=== PATIENT | male | born 1945 | race Caucasian/White ===

== ENCOUNTER 2018-01-13 14:25 | Inpatient (IN) | payer OTHER, MEDICARE ==
[2018-01-13 14:38] VITALS: BMI 29.5
--- NOTE | 2018-01-13 14:41 | PDOC ---
History of Present Illness - General History Source: Friend Exam Limitations: No Limitations - History of Present Illness Initial Comments: 01/13/18 15:14 The patient is a 72-year-old male, with a significant past medical history of HTN, HLD, colitis, IBS, bladder cancer, TIA (no residual deficits), who presents to the ED with via EMS for altered mental status. As per EMS, the patient was attempting to park his car in his driveway, but suddenly forgot how to drive the car. Neighbors helped him out of the car and noted that he was altered and confused. They called EMS at 1:48 PM and they arrived on the scene at 1:55 PM. As per EMS, the patient was ANOx4 at that time and had no focal deficits. Upon arrival to the ED, the patient was noted to be confused to date and time but had no motor deficits. The patient reports having a recent fall at home 2 weeks ago with trauma to his forehead. The patient denies any fever, chills, nausea, vomiting, diarrhea, or abdominal pain. Denies any shortness of breath or chest pain. Allergies: NKA Surgical History: Bladder resection and ileal conduit (October 2017). PCP: Dr. Appiah Contract Admin: Dr. Morgan <Kelsi Levy - Last Filed: 01/13/18 15:55> - General History Source: Friend (HCP) <Jh Arriola - Last Filed: 01/13/18 16:15> - General Chief Complaint: Altered Mental Status Stated Complaint: Altered Mental Status Time Seen by Provider: 01/13/18 14:36 Past History <Kelsi Levy - Last Filed: 01/13/18 15:55> - Past Medical History Anemia: No Asthma: No Cancer: Yes (PROSTATE with rad) Cardiac Disorders: No CVA: No COPD: No CHF: No DVT: No Dementia: No Diabetes: Yes (hx borderline) GI Disorders: Yes (COLITIS) Disorders: No HTN: Yes Hypercholesterolemia: Yes Liver Disease: No Seizures: No Thyroid Disease: No - Surgical History Abdominal Surgery: Yes (HERNIA) Appendectomy: No Cardiac Surgery: No Cholecystectomy: No Lung Surgery: No Neurologic Surgery: No Orthopedic Surgery: No - Suicide/Smoking/Psychosocial Hx Smoking History: Unknown if ever smoked Have you smoked in the past 12 months: No Number of Cigarettes Smoked Daily: 10 If you are a former smoker, when did you quit?: 1989 Information on smoking cessation initiated: No 'Breaking Loose' booklet given: 05/02/17 Hx Alcohol Use: No Drug/Substance Use Hx: No Substance Use Type: None Hx Substance Use Treatment: No <Jh Arriola - Last Filed: 01/13/18 16:15> - Past Medical History Allergies/Adverse Reactions: Allergies Allergy/AdvReac Type Severity Reaction Status Date / Time No Known Allergies Allergy Verified 05/02/17 16:46 Home Medications: Ambulatory Orders Aspirin [ASA -] 325 mg PO DAILY 03/09/15 Cyanocobalamin [Vitamin B12 -] 1,000 mg PO DAILY 03/09/15 Folic Acid 400 mg PO DAILY 03/09/15 Clobetasol Propionate/Emoll [Temovate Emollient 0.05% Crm] 45.9 mg TD DAILY 09/28 Losartan Potassium 50 mg PO DAILY 04/19/15 Multivitamins [Multivit ([facility] Formulary)] 1 tab PO DAILY 04/19/15 Simvastatin 20 mg PO DAILY 04/19/15 Acetaminophen [Tylenol .Regular Strength -] 650 mg PO Q6H PRN #0 tablet Lactobacillus Acidophilus [Bacid -] 1 each PO DAILY tab 04/25/15 Mesalamine [Asacol HD -] 800 mg PO TID tablet. 04/25/15 Pantoprazole Sodium [Protonix -] 40 mg PO DAILY tablet.ec 04/25/15 Calcium 250Mg/Vit-D 125 Units [Oscal 250 mg+D -] 2 combo PO DAILY #60 tablet Glimepiride [Amaryl -] 2 mg PO DAILY@0700 #30 tablet 05/10/15 Sitagliptin Phosphate [Januvia -] 50 mg PO DAILY@0700 #30 tablet 05/10/15 Vancomycin Oral Solution 125 mg PO Q6HPO #20 ml 05/10/15 metroNIDAZOLE [Flagyl -] 500 mg PO TID #20 tablet 05/10/15 predniSONE [Deltasone -] 30 mg PO DAILY tablet 05/10/15 Review of Systems - Review of Systems Able to Perform ROS?: Yes <Kelsi Levy - Last Filed: 01/13/18 15:55> - Review of Systems Constitutional: No: Chills, Fever Respiratory: No: Cough, Shortness of Breath Cardiac (ROS): No: Chest Pain ABD/GI: No: Diarrhea, Vomiting : Yes: See HPI Neurological: No: Headache All Other Systems: Reviewed and Negative <Jh Arriola - Last Filed: 01/13/18 16:15> *Physical Exam - Vital Signs Last Vital Signs Temp Pulse Resp BP Pulse Ox 102.7 F H 108 H 18 130/76 93 L 01/13/18 15:10 01/13/18 14:35 01/13/18 14:35 01/13/18 14:35 01/13/18 15:05 - Physical Exam Comments: 01/13/18 15:15 GENERAL: The patient is alert and oriented. HEAD: Normal with no signs of trauma. EYES: Pupils equal, round and reactive to light, extraocular movements intact, sclera anicteric, conjunctiva clear with no pallor. ENT: Ears normal, nares patent, oropharynx clear without exudates. Moist mucous membranes. NECK: Normal range of motion, supple without lymphadenopathy, JVD, or masses. LUNGS: Breath sounds equal, clear to auscultation bilaterally. No wheeze/ crackles. HEART: (+)2/6 systolic ejection murmur. Regular rate and rhythm, no rub. ABDOMEN: (+)Urostomy bag noted at right lower quadrant. Soft/nontender/ nondistended. BS wnl. No guarding or rebound. No palpable masses. No hepatosplenomegaly. EXTREMITIES: Normal range of motion, no edema. No clubbing or cyanosis. No cords, erythema, or tenderness. NEUROLOGICAL: Alert and oriented. PSYCH: Normal mood, normal affect. SKIN: Warm, Dry, normal turgor, no rashes or lesions noted. <Kelsi Levy - Last Filed: 01/13/18 15:55> - Vital Signs Last Vital Signs Temp Pulse Resp BP Pulse Ox 99.2 F 108 H 18 130/76 91 L 01/13/18 14:35 01/13/18 14:35 01/13/18 14:35 01/13/18 14:35 01/13/18 14:35 <Jh Arriola - Last Filed: 01/13/18 16:15> Heart Score/ECG Review #1 ECG reviewed & interpreted by me at: 14:56 General ECG Interpretation: Sinus Rhythm, Normal Rate (105), Normal Intervals ( qtc 441), No acute ischemic changes (TWI V4-6) Compared to previous ECG there are: Changes noted (c/w 2014, TWI are new) <Jh Arriola - Last Filed: 01/13/18 16:15> ED Treatment Course - LABORATORY CBC & Chemistry Diagram: 01/13/18 14:46 01/13/18 14:46 - ADDITIONAL ORDERS Additional order review: Laboratory Results 01/13/18 01/13/18 14:46 14:31 INR 1.46 POC Glucometer [id number] 01/13/18 01/13/18 14:46 14:31 RBC 3.72 L MCV 93.4 MCHC 33.8 RDW 15.9 Neutrophils % 84.8 H Lymphocytes % 7.5 L D Monocytes % 7.4 Eosinophils % 0.0 D Basophils % 0.3 POC Glucometer [id number] <Kelsi Levy - Last Filed: 01/13/18 15:55> - LABORATORY CBC & Chemistry Diagram: 01/13/18 14:46 01/13/18 14:46 - RADIOLOGY Radiology Studies Ordered: Category Date Time Status HEAD CT (STROKE) [CT] Stat CT Scan 01/13/18 14:37 Ordered CHEST X-RAY PORTABLE* [RAD] Stat Radiology 01/13/18 14:37 Ordered <Jh Arriola - Last Filed: 01/13/18 16:15> Medical Decision Making - Medical Decision Making 01/13/18 15:55 Dr. Appiah was paged and notified via phone service. <Kelsi Levy - Last Filed: 01/13/18 15:55> - Medical Decision Making 01/13/18 15:02 A portion of this note was documented by scribe services under my direction. I have reviewed the details of the note, within reason, and agree with the documentation with the following case summary and management plan written by me. 72y/o M h/o TIA without residual deficit, prostate/bladder ca s/p bladder resection and ileal conduit c/b infection manifested by AMS presents BIBA after neighbor noted confusion. EMS noted A+Ox3, no focal deficit. In ED, pt alert to place and person, not time (tab, ? year) but no c/o headache/vision change/weakness. VS as noted motor intact x4 RLQ urostomy with clear urine 72-year-old male in usual state of normal health, presents with altered mental status/confusion. Question TIA/TGA, question infection, rule out metabolic abnormality. Recent head injury, rule out bleed. Code fischer activated CT head shows no acute bleeding or stroke. Case reviewed with Dr. Tipton of neurology responding to code lovett, will continue to monitor for possible TGA, rule out other pathology. Rectal temp revealed fever of 102.7, sepsis protocol initiated, suspect urine as source. Empiric antibiotics, admission. Case discussed with patient's healthcare proxy, Yin, who provided much of the history and agrees with admission. Pt of Td/Cathy 01/13/18 15:22 White count 7.5 with 84% neutrophils, creatinine 1.3, troponin negative. Lactate pending. Receiving tylenol, iv fluids, and empiric antibiotics. will reassess and proceed with admission. 01/13/18 16:14 accepted for admission to inpt med/surg by Dr. Appiah, requested consult from ID Dr. Disla which was ordered. CXR without acute pathology. <Jh Arriola - Last Filed: 01/13/18 16:15> *DC/Admit/Observation/Transfer - Attestations Scribe Attestion: 01/13/18 15:20 Documentation prepared by Kelsi Levy, acting as medical investigator for Jh Arriola MD. <Kelsi Levy - Last Filed: 01/13/18 15:55> - Discharge Dispostion Decision to Admit order: Yes <Jh Arriola - Last Filed: 01/13/18 16:15> Diagnosis at time of Disposition: Transient alteration of awareness UTI (urinary tract infection) Qualifiers: Urinary tract infection type: acute cystitis Hematuria presence: without hematuria Qualified Code(s): N30.00 - Acute cystitis without hematuria - Discharge Dispostion Condition at time of disposition: Fair - Referrals Referrals: Duncan Appiah MD [Primary Care Provider] - - Patient Instructions - Post Discharge Activity
[2018-01-13 14:55] LABS: BASO % 0.3 % (0-2.0); HEMATOCRIT 34.7 % (35.4-49); HEMOGLOBIN 11.7 GM/dL (11.7-16.9); LYMPH % 7.5 % (8-40); MCH 31.5 pg (25.7-33.7); MCHC 33.8 g/dl (32.0-35.9); MEAN CELL VOLUME 93.4 fl (80-96); MEAN PLT VOLUME 8.3 fl (7.5-11.1); MONO % 7.4 % (3.8-10.2); NEUT % 84.8 % (42.8-82.8); PLATELET COUNT 148 K/MM3 (134-434); RBC 3.72 M/mm3 (4.00-5.60); RDW 15.9 % (11.9-15.9); WHITE BLOOD COUNT 7.5 K/mm3 (4.0-10.0)
[2018-01-13] MEDS: SODIUM CHLORIDE 1,000 ML IV SCH ×2 (14:57→22:11)
[2018-01-13] MEDS ORDERED: ACETAMINOPHEN 1000 MG/100 ML VIAL (NON FORMULARY) IVPB ONE (15:07)
[2018-01-13 15:10] LABS: INR 1.46 (0.83-1.09); PROTHROMBIN TIME (PATIENT) 16.5 SEC (9.7-13.0)
[2018-01-13] MEDS ORDERED: CEFTRIAXONE 1,000 MG in DEXTROSE 5%-WATER - 50 ML IVPB ONE (15:15)
[2018-01-13] MEDS ORDERED: ACETAMINOPHEN INJECTION 100 ML IVPB ONE (15:15)
[2018-01-13 15:16] LABS: ALBUMIN 3.6 g/dl (3.4-5.0); ANION GAP 10 (8-16); BILIRUBIN,TOTAL 1.5 mg/dL (0.2-1.0); BLOOD UREA NITROGEN 23 mg/dL (7-18); CALCIUM 8.9 mg/dL (8.5-10.1); CHLORIDE 103 mmol/L (98-107); CHOLESTEROL 109 mg/dL (50-200); CO2 27 mmol/L (21-32); CREATININE 1.3 mg/dL (0.7-1.3); GLUCOSE,RANDOM 196 mg/dL (74-106); POTASSIUM 4.1 mmol/L (3.5-5.1); SGOT/AST 20 U/L (15-37); SGPT/ALT 24 U/L (12-78); SODIUM 140 mmol/L (136-145); TOT PROT 7.6 g/dl (6.4-8.2); TRIGLYCERIDES 89 mg/dL (35-160)
[2018-01-13] MEDS ORDERED: CEFTRIAXONE 1 GM/50 ML BAG ONE (15:16)
[2018-01-13 15:17] LABS: ALK PHOS 76 U/L (45-117); HDL CHOLESTEROL 43 mg/dL (40-60)
[2018-01-13 15:37] LABS: URINE APPEARANCE CLOUDY; URINE BILIRUBIN NEGATIVE (<2.0 mg/dL); URINE COLOR YELLOW; URINE GLUCOSE (UA) NEGATIVE (NEGATIVE); URINE KETONE NEGATIVE (NEGATIVE); URINE LEUK ESTERASE 2+ (NEGATIVE); URINE NITRITE NEGATIVE (NEGATIVE); URINE PROTEIN 1+ (NEGATIVE); URINE UROBILINOGEN NEGATIVE mg/dL (0.2-1.0)
[2018-01-13 16:01] LABS: EPI CELLS RARE /HPF (FEW); URINE BACTERIA MODERATE /hpf (NONE SEEN); URINE HYALINE CAST 5 /lpf; URINE MUCUS FEW
--- NOTE | 2018-01-13 19:11 | CON.NEURO ---
Consult Consult Specialty:: Danuta Referred by:: ER Reason for Consultation:: AMS - History of Present Illness History of Present Illness: 72-year-old right-handed man with multiple medical problem including past medical history of HTN, HLD, colitis, IBS, bladder cancer, TIA (no residual deficits), Patient was at his usual status of health until today I spoke to the emergency room "grade was initiatet I saw the patient on the floor I reviewed his CAT scan immediately Patient was not a candidate for thrombolysis Basically the patient was driving the car and he was having difficulty backing the car into the spot patient was noted by 2 people and EMS was called. Significantly patient had a recent procedure done at [facility]. Patient CAT scan of the head revealed no evidence of bleed Patient was alert and oriented 4 in the EMS services came in Patient was stable in the ER and was [facility] treatment and management Again I saw the patient on the floor patient was alert awake oriented 3 no report of any seizure-like activity patient denies any fever. 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 Cardio/Vascular: Yes: HTN, Hyperlipdemia Gastrointestinal: Yes: Inflamatory Bowel Disease Renal/: Yes: BPH, UTI, Other (SEE ABOVE) Endocrine: Yes: Diabetes Mellitus - Past Surgical History Past Surgical History: Yes: Cataract Removal - Alcohol/Substance Use Hx Alcohol Use: No - Smoking History Smoking history: Unknown if ever smoked Have you smoked in the past 12 months: No Aproximately how many cigarettes per day: 10 If you are a former smoker, when did you quit?: 1989 Home Medications - Allergies Allergies/Adverse Reactions: Allergies Allergy/AdvReac Type Severity Reaction Status Date / Time No Known Allergies Allergy Verified 05/02/17 16:46 - Home Medications Home Medications: Ambulatory Orders Aspirin [ASA -] 325 mg PO DAILY 03/09/15 Cyanocobalamin [Vitamin B12 -] 1,000 mg PO DAILY 03/09/15 Folic Acid 400 mg PO DAILY 03/09/15 Clobetasol Propionate/Emoll [Temovate Emollient 0.05% Crm] 45.9 mg TD DAILY 09/28 Losartan Potassium 50 mg PO DAILY 04/19/15 Multivitamins [Multivit ([facility] Formulary)] 1 tab PO DAILY 04/19/15 Simvastatin 20 mg PO DAILY 04/19/15 Acetaminophen [Tylenol .Regular Strength -] 650 mg PO Q6H PRN #0 tablet Lactobacillus Acidophilus [Bacid -] 1 each PO DAILY tab 04/25/15 Mesalamine [Asacol HD -] 800 mg PO TID tablet. 04/25/15 Pantoprazole Sodium [Protonix -] 40 mg PO DAILY tablet.ec 04/25/15 Calcium 250Mg/Vit-D 125 Units [Oscal 250 mg+D -] 2 combo PO DAILY #60 tablet Glimepiride [Amaryl -] 2 mg PO DAILY@0700 #30 tablet 05/10/15 Sitagliptin Phosphate [Januvia -] 50 mg PO DAILY@0700 #30 tablet 05/10/15 Vancomycin Oral Solution 125 mg PO Q6HPO #20 ml 05/10/15 metroNIDAZOLE [Flagyl -] 500 mg PO TID #20 tablet 05/10/15 predniSONE [Deltasone -] 30 mg PO DAILY tablet 05/10/15 Review of Systems - Review of Systems Constitutional: reports: No Symptoms Eyes: reports: No Symptoms Musculoskeletal: reports: Back Pain, Joint Pain, Joint Swelling, Muscle Pain Neurological: reports: No Symptoms Physical Exam-Neuro Vital Signs: Vital Signs Temperature 98.2 F 01/13/18 17:25 Pulse Rate 88 01/13/18 17:25 Respiratory Rate 17 01/13/18 17:25 Blood Pressure 120/70 01/13/18 17:25 O2 Sat by Pulse Oximetry (%) 95 01/13/18 17:25 Constitutional: Yes: Well Nourished Neck: Yes: WNL Labs: CBC, BMP 01/13/18 14:46 01/13/18 14:46 INR, PTT INR 1.46 (0.83-1.09) 01/13/18 14:46 - Neuro Exam Level Of Consciousness: Yes: Oriented to Person, Oriented to Place, Oriented to Time Eyes: Yes: PERRLA Speech: WNL Dominant Hand: Right Cranial Nerves II-XII Intact: Yes Gag: Present DTR's: 1+ Left Bicep, 1+ Right Bicep, 1+ Left Brachioradialis, 1+ Right Brachioradialis, 1+ Left Achilles, 1+ Right Achilles Response to light touch: Normal Response to pain prick: Normal Response to temperature: Normal Response to vibration: Abnormal Motor Strength: 4/5: Left Arm, Right Arm, Left Leg, Right Leg Gait: Deferred Imaging - Results Cat Scan: Image Reviewed Problem List - Problems (1) Transient alteration of awareness Assessment/Plan: patient was not a candidate for TPA Questionable toxic metabolic encephalopathy resolving 1. Agree to plan to admit and monitor 22. ID consult 3. Will get MRI of the brain as an outpatient at [facility] 4. Continue antiplatelet treatment 5. DVT prophylaxis Code(s): R40.4 - TRANSIENT ALTERATION OF AWARENESS (2) Near syncope Assessment/Plan: if the symptoms recur again we will consider cardiac workup and an EEG Thank you for the kind referral will follow the patient with other consultants during the admission. Code(s): R55 - SYNCOPE AND COLLAPSE
[2018-01-13 21:40] LABS: GAMMA GLUTAMYL TRANSPEPTIDASE 49 U/L (5-85)
[2018-01-13] MEDS: ATORVASTATIN CA 40 MG TABLET (FP) PO SCH (22:10)
[2018-01-13] MEDS: RIVAROXABAN 20 MG TABLET PO SCH (22:10)
[2018-01-13] MEDS: INSULIN SLIDING SCALE (NOVOLOG) 1 VIAL SQ SCH (22:18)
[2018-01-14] MEDS: ACETAMINOPHEN 325 MG TABLET (FP) PO PRN ×2 (01:35→17:56)
[2018-01-14] MEDS: INSULIN SLIDING SCALE (NOVOLOG) 1 VIAL SQ SCH ×4 (06:37→21:09)
[2018-01-14 06:55] LABS: HEMATOCRIT 29.1 % (35.4-49); HEMOGLOBIN 9.9 GM/dL (11.7-16.9); MCHC 34.1 g/dl (32.0-35.9); MEAN CELL VOLUME 93.9 fl (80-96); PLATELET COUNT 105 K/MM3 (134-434); RDW 15.7 % (11.9-15.9); WHITE BLOOD COUNT 4.3 K/mm3 (4.0-10.0)
[2018-01-14 07:17] LABS: ALBUMIN 2.9 g/dl (3.4-5.0); ANION GAP 8 (8-16); BLOOD UREA NITROGEN 20 mg/dL (7-18); CHLORIDE 110 mmol/L (98-107); CO2 27 mmol/L (21-32); GLUCOSE,RANDOM 110 mg/dL (74-106); POTASSIUM 3.9 mmol/L (3.5-5.1); SGOT/AST 11 U/L (15-37); SGPT/ALT 18 U/L (12-78); SODIUM 145 mmol/L (136-145)
[2018-01-14 07:19] LABS: ALK PHOS 60 U/L (45-117); BILIRUBIN,TOTAL 0.9 mg/dL (0.2-1.0); CREATININE 0.8 mg/dL (0.7-1.3); TOT PROT 6.3 g/dl (6.4-8.2)
--- NOTE | 2018-01-14 07:56 | HP ---
Admitting History and Physical - Primary Care Physician PCP: Duncan Appiah - Admission Chief Complaint: CONFUSION/UTI SEPSIS History of Present Illness: The patient is a 72-year-old male, with a significant past medical history of HTN, HLD, colitis, IBS, bladder cancer, TIA (no residual deficits), who presents to the ED with via EMS for altered mental status. As per EMS, the patient was attempting to park his car in his driveway, but suddenly forgot how to drive the car. Neighbors helped him out of the car and noted that he was altered and confused. They called EMS at 1:48 PM and they arrived on the scene at 1:55 PM. As per EMS, the patient was ANOx4 at that time and had no focal deficits. Upon arrival to the ED, the patient was noted to be confused to date and time but had no motor deficits. The patient reports having a recent fall at home 2 weeks ago with trauma to his forehead. 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 Cardiovascular: Yes: HTN, Hyperlipdemia Gastrointestinal: Yes: Inflamatory Bowel Disease Renal/: Yes: BPH, UTI, Other (SEE ABOVE) Endocrine: Yes: Diabetes Mellitus - Past Surgical History Past Surgical History: Yes: Cataract Removal - Smoking History Smoking history: Unknown if ever smoked Have you smoked in the past 12 months: No Aproximately how many cigarettes per day: 10 If you are a former smoker, when did you quit?: 1989 - Alcohol/Substance Use Hx Alcohol Use: No Home Medications - Allergies Allergies/Adverse Reactions: Allergies Allergy/AdvReac Type Severity Reaction Status Date / Time No Known Allergies Allergy Verified 05/02/17 16:46 - Home Medications Home Medications: Ambulatory Orders Aspirin [ASA -] 325 mg PO DAILY 03/09/15 Cyanocobalamin [Vitamin B12 -] 1,000 mg PO DAILY 03/09/15 Folic Acid 400 mg PO DAILY 03/09/15 Clobetasol Propionate/Emoll [Temovate Emollient 0.05% Crm] 45.9 mg TD DAILY 09/28 Losartan Potassium 50 mg PO DAILY 04/19/15 Multivitamins [Multivit ([facility] Formulary)] 1 tab PO DAILY 04/19/15 Simvastatin 20 mg PO DAILY 04/19/15 Acetaminophen [Tylenol .Regular Strength -] 650 mg PO Q6H PRN #0 tablet Lactobacillus Acidophilus [Bacid -] 1 each PO DAILY tab 04/25/15 Mesalamine [Asacol HD -] 800 mg PO TID tablet. 04/25/15 Pantoprazole Sodium [Protonix -] 40 mg PO DAILY tablet.ec 04/25/15 Calcium 250Mg/Vit-D 125 Units [Oscal 250 mg+D -] 2 combo PO DAILY #60 tablet Glimepiride [Amaryl -] 2 mg PO DAILY@0700 #30 tablet 05/10/15 Sitagliptin Phosphate [Januvia -] 50 mg PO DAILY@0700 #30 tablet 05/10/15 Vancomycin Oral Solution 125 mg PO Q6HPO #20 ml 05/10/15 metroNIDAZOLE [Flagyl -] 500 mg PO TID #20 tablet 05/10/15 predniSONE [Deltasone -] 30 mg PO DAILY tablet 05/10/15 Review of Systems - Review of Systems Constitutional: reports: Weakness Eyes: reports: No Symptoms HENT: reports: No Symptoms Cardiovascular: reports: No Symptoms Respiratory: reports: No Symptoms Gastrointestinal: reports: Other Genitourinary: reports: Incontinence, Other Musculoskeletal: reports: Muscle Weakness Integumentary: reports: No Symptoms Neurological: reports: Weakness Endocrine: reports: No Symptoms Hematology/Lymphatic: reports: No Symptoms Psychiatric: reports: No Symptoms Physical Examination Vital Signs: Vital Signs Temperature 97.8 F 01/14/18 06:00 Pulse Rate 75 01/14/18 06:00 Respiratory Rate 18 01/14/18 06:00 Blood Pressure 104/59 01/14/18 06:00 O2 Sat by Pulse Oximetry (%) 95 01/13/18 21:00 Constitutional: Yes: Mild Distress Eyes: Yes: WNL HENT: Yes: WNL Neck: Yes: WNL Cardiovascular: Yes: WNL Respiratory: Yes: WNL Gastrointestinal: Yes: Other (ILEAL CONDUIT BAG) Renal/: Yes: Incontinence Extremities: Yes: WNL Edema: Yes Edema: LLE: Trace, RLE: Trace Peripheral Pulses WNL: Yes Integumentary: Yes: Venous Stasis Changes Wound/Incision: Yes: Clean/Dry Neurological: Yes: Unsteady Gait, Weakness ...Motor Strength: LLE, RLE Psychiatric: Yes: WNL Labs: CBC, BMP 01/14/18 06:00 01/14/18 06:00 Imaging - Results Cat Scan: Report Reviewed Problem List - Problems (1) Ileal conduit stomal stenosis Code(s): T85.858A - STENOSIS DUE TO OTHER INTERNAL PROSTH DEV/GRFT, INIT (2) Unsteady gait Code(s): R26.81 - UNSTEADINESS ON FEET (3) Toxic metabolic encephalopathy Code(s): G92 - TOXIC ENCEPHALOPATHY (4) Fever Code(s): R50.9 - FEVER, UNSPECIFIED (5) Transient alteration of awareness Code(s): R40.4 - TRANSIENT ALTERATION OF AWARENESS (6) UTI (urinary tract infection) Code(s): N39.0 - URINARY TRACT INFECTION, SITE NOT SPECIFIED Qualifiers: Urinary tract infection type: acute cystitis Hematuria presence: without hematuria Qualified Code(s): N30.00 - Acute cystitis without hematuria Assessment/Plan IV ABX FOR UTI NEURO EVAL PT EVAL FOR UNSTEADY GAIT DVT PROPHYLAXIS PE? OLD?
--- NOTE | 2018-01-14 11:04 | CON.CARD ---
Consult Consult Specialty:: cardiology Referred by:: Td Reason for Consultation:: near syncope - History of Present Illness Chief Complaint: near syncope History of Present Illness: 72M h/o HTN, HLD, colitis, TIA (no residual deficits) p/w alt mental status. Was trying to drive car, noted to neighbors to be confused. No deficits noted by EMS. Was brought to ER, neuro was consulted. CT head unremarkable MRI head pending. echo was ordered by primary team. Patient of Dr. Morgan, last seen . noted at that time to have frequent falls without dizziness or prodrome or syncope per clinic note. Had prior arrhythmia workup with outpatient monitoring without events. was recomended to have PT eval, echo and stress unremarkable recently. 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 Cardio/Vascular: Yes: HTN, Hyperlipdemia Gastrointestinal: Yes: Inflamatory Bowel Disease Renal/: Yes: BPH, UTI, Other (SEE ABOVE) Endocrine: Yes: Diabetes Mellitus - Past Surgical History Past Surgical History: Yes: Cataract Removal - Alcohol/Substance Use Hx Alcohol Use: No - Smoking History Smoking history: Unknown if ever smoked Have you smoked in the past 12 months: No Aproximately how many cigarettes per day: 10 If you are a former smoker, when did you quit?: 1989 Home Medications - Allergies Allergies/Adverse Reactions: Allergies Allergy/AdvReac Type Severity Reaction Status Date / Time No Known Allergies Allergy Verified 05/02/17 16:46 - Home Medications Home Medications: Ambulatory Orders Aspirin [ASA -] 325 mg PO DAILY 03/09/15 Cyanocobalamin [Vitamin B12 -] 1,000 mg PO DAILY 03/09/15 Folic Acid 400 mg PO DAILY 03/09/15 Clobetasol Propionate/Emoll [Temovate Emollient 0.05% Crm] 45.9 mg TD DAILY 09/28 Losartan Potassium 50 mg PO DAILY 04/19/15 Multivitamins [Multivit ([facility] Formulary)] 1 tab PO DAILY 04/19/15 Simvastatin 20 mg PO DAILY 04/19/15 Acetaminophen [Tylenol .Regular Strength -] 650 mg PO Q6H PRN #0 tablet Lactobacillus Acidophilus [Bacid -] 1 each PO DAILY tab 04/25/15 Mesalamine [Asacol HD -] 800 mg PO TID tablet. 04/25/15 Pantoprazole Sodium [Protonix -] 40 mg PO DAILY tablet.ec 04/25/15 Calcium 250Mg/Vit-D 125 Units [Oscal 250 mg+D -] 2 combo PO DAILY #60 tablet Glimepiride [Amaryl -] 2 mg PO DAILY@0700 #30 tablet 05/10/15 Sitagliptin Phosphate [Januvia -] 50 mg PO DAILY@0700 #30 tablet 05/10/15 Vancomycin Oral Solution 125 mg PO Q6HPO #20 ml 05/10/15 metroNIDAZOLE [Flagyl -] 500 mg PO TID #20 tablet 05/10/15 predniSONE [Deltasone -] 30 mg PO DAILY tablet 05/10/15 Review of Systems - Review of Systems Constitutional: reports: Weakness Eyes: reports: No Symptoms HENT: reports: No Symptoms Neck: reports: No Symptoms Cardiovascular: reports: No Symptoms Respiratory: reports: No Symptoms Gastrointestinal: reports: No Symptoms Neurological: reports: No Symptoms Endocrine: reports: No Symptoms Psychiatric: reports: No Symptoms Vital Signs: Vital Signs Temperature 97.8 F 01/14/18 06:00 Pulse Rate 75 01/14/18 06:00 Respiratory Rate 18 01/14/18 06:00 Blood Pressure 104/59 01/14/18 06:00 O2 Sat by Pulse Oximetry (%) 95 01/13/18 21:00 Constitutional: Yes: No Distress, Calm Eyes: Yes: Conjunctiva Clear, EOM Intact HENT: Yes: Atraumatic, Normocephalic Neck: Yes: Supple Respiratory: Yes: Regular, CTA Bilaterally Gastrointestinal: Yes: Normal Bowel Sounds, Soft Renal/: Yes: Other (+ileostomy) Cardiovascular: Yes: Regular Rate and Rhythm JVD: No Heart Sounds: Yes: S1, S2 Edema: No Neurological: Yes: Alert, Oriented Psychiatric: Yes: Alert, Oriented - Other Data Labs, Other Data: CBC, BMP 01/14/18 06:00 01/14/18 06:00 INR, PTT INR 1.46 (0.83-1.09) 01/13/18 14:46 Troponin, BNP 01/13/18 14:46 Troponin I < 0.02 Troponin, BNP 01/13/18 14:46 Troponin I < 0.02 Assessment/Plan Ex stress mibi 10/2014: 5 mins, 30 secs, no ischemia Echo 12/2013: TDS, normal LV/RV size and function, no sig valv abn, mild LVH stress echo 10/2016 nonischemic stress test by EKG, mod T, no echo evidence of inducible ischemia, exercised 4:38 min, peak RVSP 71 mmHg, post exercise echo 06/2017 nl LV/hyperdynamic EF, mod LAE, RV tds, +IASA, valves WNL, peak TR gradient 33 mmHg, mildly dilated asc aorta carotids 09/2016 mild nonobstructive dz Holter 7 days 05/2017 NSR, sinus kalani x3 to low 50s bpm (from 2-7 AM episodes) EKG 01/13/18 sinus tach, nonspecific ST/T wave abnormality CXR no acute process echo 01/14/18 nl LV function, no sig valvular abnormalities 72M h/o HTN, HLD, colitis, TIA (no residual deficits) p/w alt mental status, near syncope near syncope, weakness - no LOC - has had workup for falls in the past in cardiology clinic including echo, 7 day holter, stress testing, carotids which were unremarkable - echo today unremarkable - unlikely cardiac etiology, would not recommend further cardiac testing as inpatient - follow up neurology recs - h/o ileostomy, recurrent UTI and reportedly febrile, ID consulted as well h/o TIA - continue statin, neuro following HTN: - controlled on metoprolol, losartan, continue HLD: - continue home statin h/o PE - on xarelto as outpatient
--- NOTE | 2018-01-14 11:19 | EKG ---
Test Reason : Blood Pressure : / mmHG Vent. Rate : 105 BPM Atrial Rate : 111 BPM P-R Int : 136 ms QRS Dur : 084 ms QT Int : 334 ms P-R-T Axes : 017 006 009 degrees QTc Int : 441 ms SINUS TACHYCARDIA NONSPECIFIC ST AND T WAVE ABNORMALITY ABNORMAL ECG WHEN COMPARED WITH ECG OF 06-MAY-2015 15:04, NONSPECIFIC T WAVE ABNORMALITY, WORSE IN ANTEROLATERAL LEADS Confirmed by HAL SALEH, SARMAD ([id number]) on 01/14/2018 11:18:53 AM Referred By: Confirmed By:SARMAD HONG MD
[2018-01-14] MEDS: CITALOPRAM HYDROBROMIDE 10 MG TABLET (FP) PO SCH (11:42)
[2018-01-14] MEDS: LOSARTAN POTASSIUM 50 MG TABLET (FP) PO SCH (11:42)
[2018-01-14] MEDS: metoPROLOL SUCCINATE 25 MG TAB.SR.24H (FP) PO SCH (11:43)
--- NOTE | 2018-01-14 12:36 | PN ---
Progress Note, Physician History of Present Illness: Events noted and chart reviewed Patient was getting his EEG Workup for questionable TIA Patient was seen by cardiology I noted that the patient probably hydration induced is becoming more anemic! Patient also had very high INR I spoke to the nurse there is no events overnight - Current Medication List Current Medications: Active Medications Acetaminophen (Tylenol -) 650 mg PO Q6H PRN PRN Reason: FEVER Last Admin: 01/14/18 01:35 Dose: 650 mg Atorvastatin Calcium (Lipitor -) 40 mg PO HS [facility] Last Admin: 01/13/18 22:10 Dose: 40 mg Citalopram Hydrobromide (Celexa -) 10 mg PO DAILY [facility] Last Admin: 01/14/18 11:42 Dose: 10 mg Sodium Chloride (Normal Saline -) 1,000 mls @ 42 mls/hr IV ASDIR [facility] Last Admin: 01/13/18 22:11 Dose: 42 mls/hr Insulin Aspart (Novolog Vial Sliding Scale -) 1 vial SQ ACHS [facility]; Protocol Last Admin: 01/14/18 06:37 Dose: Not Given Losartan Potassium (Cozaar -) 25 mg PO DAILY [facility] Last Admin: 01/14/18 11:42 Dose: 25 mg Metoprolol Succinate (Toprol Xl -) 25 mg PO DAILY [facility] Last Admin: 01/14/18 11:43 Dose: 25 mg Rivaroxaban (Xarelto -) 20 mg PO DAILY@1800 [facility] Last Admin: 01/13/18 22:10 Dose: 20 mg - Objective Vital Signs: Vital Signs Temperature 97.8 F 01/14/18 06:00 Pulse Rate 75 01/14/18 06:00 Respiratory Rate 18 01/14/18 06:00 Blood Pressure 104/59 01/14/18 06:00 O2 Sat by Pulse Oximetry (%) 95 01/13/18 21:00 Constitutional: Yes: Well Nourished Eyes: Yes: WNL Labs: CBC, BMP 01/14/18 06:00 01/14/18 06:00 INR, PTT INR 1.46 (0.83-1.09) 01/13/18 14:46 Problem List - Problems (1) Transient alteration of awareness Assessment/Plan: await the EEG results. 2. Follow-up with cardiology. 3. Out of bed to the chair Code(s): R40.4 - TRANSIENT ALTERATION OF AWARENESS (2) Near syncope Assessment/Plan: follow-up another CBC Fall precautions Code(s): R55 - SYNCOPE AND COLLAPSE
--- NOTE | 2018-01-14 12:42 | ECHO ---
Name: DEYSI MARQUIS Exam:Adult Echocardiogram Study Date: 01/14/2018 08:33 AM Age: 72 yrs Reason For Study: CVA Height: 69 in Weight: 200 lb BSA: 2.1 m2 MMode/2D Measurements & Calculations IVSd: 0.92 cm Ao root diam: 3.5 cm LVIDd: 4.4 cm LA dimension: 4.3 cm LVIDs: 2.9 cm LVPWd: 0.88 cm EDV(Teich): 87.6 ml TAPSE: 2.9 cm ESV(Teich): 32.5 ml RV S Pelon: 13.3 cm/sec Doppler Measurements & Calculations MV E max pelon: 74.0 cm/sec TR max pelon: 231.6 cm/sec MV A max pelon: 72.6 cm/sec TR max P.8 mmHg MV E/A: 1.0 PI end-d pelon: 141.8 cm/sec Med Peak E' Pelon: 5.6 cm/sec Med E/e': 13.3 Lat Peak E' Pelon: 10.1 cm/sec Lat E/e': 7.3 Procedure A two-dimensional transthoracic echocardiogram with color flow and Doppler was performed. Left Ventricle The left ventricular size, thickness and function are normal. The left ventricular ejection fraction is normal. Left Ventricular Filling pattern is normal for age. The left ventricular wall motion is aleksander l. Right Ventricle The right ventricle is normal in size and function. Atria The left atrium is mildly dilated. The right atrium is mildly dilated. Mitral Valve There is mild mitral valve thickening. There is no mitral valve stenosis. There is trace mitral regur gitation. Tricuspid Valve There is mild tricuspid valve thickening. There is no tricuspid stenosis. There is trace tricuspid regurgitation. Right ventricular systolic pressure is normal. Aortic Valve The aortic valve is not well visualized. Hemodynamically significant valvular aortic stenosis cannot be excluded. No aortic regurgitation is present. Pulmonic Valve The pulmonic valve is not well visualized. There is no pulmonic valvular stenosis. There is no pulmon ic valvular regurgitation. Great Vessels The aortic root is normal size. Pericardium/Pleura There is no pericardial effusion. Interpretation Summary The left ventricular size, thickness and function are normal The left ventricular ejection fraction is normal. The left ventricular wall motion is normal. There is trace tricuspid regurgitation. Right ventricular systolic pressure is normal. Left Ventricular Filling pattern is normal for age. The left atrium is mildly dilated. The right atrium is mildly dilated. There is trace mitral regurgitation. MD Ko Chaidez 01/14/2018 12:42 PM
--- NOTE | 2018-01-14 13:49 | PN ---
Progress Note (short form) - Note Progress Note: ID consult dictated imp/reccd 72 year old man admitted yesterday after neighbors called EMS for confusion found to have fever to 102.7 +ileostomy no clear source of fever given fever and thromobcytopenia will continue rocephin to cover for possible UTI and f/u cultures Problem List - Problems (1) Fever Code(s): R50.9 - FEVER, UNSPECIFIED (2) UTI (urinary tract infection) Code(s): N39.0 - URINARY TRACT INFECTION, SITE NOT SPECIFIED Qualifiers: Urinary tract infection type: acute cystitis Hematuria presence: without hematuria Qualified Code(s): N30.00 - Acute cystitis without hematuria (3) Thrombocytopenia Code(s): D69.6 - THROMBOCYTOPENIA, UNSPECIFIED
--- NOTE | 2018-01-14 14:15 | CONS ---
DATE OF CONSULTATION: DATE OF DICTATION: 01/14/2018 REQUESTED BY: Duncan Appiah MD HISTORY OF PRESENT ILLNESS: This is a 72-year-old man who yesterday developed sudden confusion. He was apparently trying to park his car and suddenly forgot how to drive. His neighbors noted he was confused. They intervened. They called EMS and by the time EMS got there he was alert and oriented. The patient was brought to the emergency room where again he was noted to be confused to date and time. He gave the ER a history that he had had a fall 2 weeks ago and besides that he felt well. In the ER he had a head CT that showed moderate atrophy, no gross intracranial pathology. He was found to have a rectal temperature of 102.7 and suspicion for confusion secondary to his fever was entertained. He was given a dose of ceftriaxone in the emergency room. Blood cultures and urine cultures were sent. He is currently resting comfortably. He had oral fever of 102 overnight, currently 97.9. He denies cough. He denies diarrhea. He has no abdominal pain or chest pain. Of note he has a history of bladder cancer. He is status post ileal conduit which he states he had in May 2017 at [place]. He reports he was transferred to [facility] for rehab, sent straight back to the hospital where he was hospitalized for 4 weeks with a staph infection. He was then [facility] the [facility] for another 8 weeks of rehab after which he finally went home at the end of August. He lives alone and he has no other complaints. Of note on further conversation with the patient he lives in an apartment. There has been no recent travel. He is hoping to go to [place] for the next summer. He denies any tick bites or mosquito bites. He does not go fishing. He does not spend very much time outside. PAST MEDICAL HISTORY: Is notable for history of TIA in the past, hypertension, hyperlipidemia, inflammatory bowel disease, BPH, UTI, bladder cancer, diabetes and he has had cataract removal. SOCIAL HISTORY: There is no history of alcohol use. He stopped smoking 35 years ago. There is no history of substance use. He lives alone. 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 REVIEW OF SYSTEMS: He currently has no fevers or chills and he is quite alert. He denies headache, nausea, vomiting, abdominal pain or chest pain. ALLERGIES: He has no known drug allergies. MEDICATIONS: His medication list has not been updated. PHYSICAL EXAMINATION: General: He is awake and alert. HEENT: He is normocephalic. His eyes are anicteric. He has no thrush. Neck: Supple. Lungs: Clear to auscultation. Heart: Regular rate and rhythm. Abdomen: Soft. Genitourinary: He is draining clear urine. Extremities: Without edema. Skin: He has no skin breakdown. LABORATORIES: Notable for a white count of 4.3, hemoglobin 9.9, platelets are 105. Sedimentation rate is 87. INR is 1.4. LFTs are normal. BUN is 20 and creatinine is 0.8. Urinalysis: Leukocytes 2+ with 71 white cells. Cultures are pending. ASSESSMENT: 1. In summary this is a 72-year-old man with transient confusion who has fever of unclear etiology. Difficult to implicate the ileostomy but with the positive urinalysis would be reasonable to give him antibiotics, especially as he has dropped his platelets. He has no pets. He lives in an apartment, has really not been outside or spending any time in [place] or grassy areas making it less likely that he has a tick-borne illness. Would treat him with ceftriaxone at this time while waiting for the culture results. 2. History of bladder cancer, status post ileal conduit. 3. History of hypertension. The patient is unable to give a current medication list so the medication list has not been completed. Pedro [id number]
[2018-01-14] MEDS ORDERED: DEXTROSE 5%-WATER 100 ML IVPB ONE (17:46)
[2018-01-14] MEDS: CEFTRIAXONE 2 GM in DEXTROSE 5%-WATER 100 ML IVPB SCH (17:55)
[2018-01-14] MEDS: RIVAROXABAN 20 MG TABLET PO SCH (17:56)
[2018-01-14] MEDS: SODIUM CHLORIDE 1,000 ML IV SCH (17:57)
[2018-01-14] MEDS: ATORVASTATIN CA 40 MG TABLET (FP) PO SCH (21:20)
[2018-01-15] MEDS: INSULIN SLIDING SCALE (NOVOLOG) 1 VIAL SQ SCH ×4 (06:04→22:37)
[2018-01-15 07:26] LABS: HEMATOCRIT 29.9 % (35.4-49); HEMOGLOBIN 10.2 GM/dL (11.7-16.9); MCHC 34.1 g/dl (32.0-35.9); MEAN CELL VOLUME 93.7 fl (80-96); MEAN PLT VOLUME 8.2 fl (7.5-11.1); PLATELET COUNT 117 K/MM3 (134-434); RBC 3.19 M/mm3 (4.00-5.60); WHITE BLOOD COUNT 3.1 K/mm3 (4.0-10.0)
[2018-01-15 08:05] LABS: ANION GAP 7 (8-16); BLOOD UREA NITROGEN 21 mg/dL (7-18); CALCIUM 8.5 mg/dL (8.5-10.1); CHLORIDE 111 mmol/L (98-107); CO2 27 mmol/L (21-32); CREATININE 0.8 mg/dL (0.7-1.3); GLUCOSE,RANDOM 115 mg/dL (74-106); MAGNESIUM 2.1 mg/dL (1.8-2.4); PHOSPHOROUS 3.2 mg/dL (2.5-4.9); POTASSIUM 4.2 mmol/L (3.5-5.1); SODIUM 145 mmol/L (136-145)
[2018-01-15] MEDS ORDERED: DEXTROSE 5%-WATER 100 ML IVPB ONE (09:22)
--- NOTE | 2018-01-15 09:29 | PN ---
Progress Note, Physician Chief Complaint: AWAKE ALERT NAD FEVER 102 OVERNIGHT - Current Medication List Current Medications: Active Medications Acetaminophen (Tylenol -) 650 mg PO Q6H PRN PRN Reason: FEVER Last Admin: 01/14/18 17:56 Dose: 650 mg Atorvastatin Calcium (Lipitor -) 40 mg PO HS [facility] Last Admin: 01/14/18 21:20 Dose: 40 mg Citalopram Hydrobromide (Celexa -) 10 mg PO DAILY [facility] Last Admin: 01/14/18 11:42 Dose: 10 mg Ceftriaxone Sodium 2 gm/ (Dextrose) 100 mls @ 200 mls/hr IVPB DAILY [facility]; Protocol Last Admin: 01/14/18 17:55 Dose: 200 mls/hr Insulin Aspart (Novolog Vial Sliding Scale -) 1 vial SQ ACHS [facility]; Protocol Last Admin: 01/15/18 06:04 Dose: Not Given Losartan Potassium (Cozaar -) 25 mg PO DAILY [facility] Last Admin: 01/14/18 11:42 Dose: 25 mg Metoprolol Succinate (Toprol Xl -) 25 mg PO DAILY [facility] Last Admin: 01/14/18 11:43 Dose: 25 mg Rivaroxaban (Xarelto -) 20 mg PO DAILY@1800 [facility] Last Admin: 01/14/18 17:56 Dose: 20 mg - Objective Vital Signs: Vital Signs Temperature 98 F 01/15/18 05:00 Pulse Rate 68 01/15/18 05:00 Respiratory Rate 18 01/15/18 05:00 Blood Pressure 130/71 01/15/18 05:00 O2 Sat by Pulse Oximetry (%) 97 01/14/18 21:00 Constitutional: Yes: No Distress Eyes: Yes: WNL HENT: Yes: WNL Neck: Yes: WNL Cardiovascular: Yes: WNL Respiratory: Yes: WNL Gastrointestinal: Yes: Other (ILIOCONDUIT BAG) Genitourinary: Yes: Other Musculoskeletal: Yes: Muscle Weakness Edema: No Peripheral Pulses WNL: Yes Integumentary: Yes: WNL Wound/Incision: Yes: Other Neurological: Yes: Unsteady Gait ...Motor Strength: LLE, RLE Psychiatric: Yes: WNL Labs: CBC, BMP 01/15/18 06:00 01/15/18 06:00 INR, PTT INR 1.46 (0.83-1.09) 01/13/18 14:46 Problem List - Problems (1) Ileal conduit stomal stenosis Code(s): T85.858A - STENOSIS DUE TO OTHER INTERNAL PROSTH DEV/GRFT, INIT (2) Unsteady gait Code(s): R26.81 - UNSTEADINESS ON FEET (3) Toxic metabolic encephalopathy Code(s): G92 - TOXIC ENCEPHALOPATHY (4) Fever Code(s): R50.9 - FEVER, UNSPECIFIED (5) Transient alteration of awareness Code(s): R40.4 - TRANSIENT ALTERATION OF AWARENESS (6) UTI (urinary tract infection) Code(s): N39.0 - URINARY TRACT INFECTION, SITE NOT SPECIFIED Qualifiers: Urinary tract infection type: acute cystitis Hematuria presence: without hematuria Qualified Code(s): N30.00 - Acute cystitis without hematuria Assessment/Plan IV ABX PER ID AWAIT CX PT EVAL NEURO F/U MRI BRAIN P
[2018-01-15] MEDS: CEFTRIAXONE 2 GM in DEXTROSE 5%-WATER 100 ML IVPB SCH (09:33)
[2018-01-15] MEDS: LOSARTAN POTASSIUM 50 MG TABLET (FP) PO SCH (09:34)
[2018-01-15] MEDS: CITALOPRAM HYDROBROMIDE 10 MG TABLET (FP) PO SCH (09:34)
[2018-01-15] MEDS: metoPROLOL SUCCINATE 25 MG TAB.SR.24H (FP) PO SCH (09:34)
--- NOTE | 2018-01-15 13:57 | PN ---
Progress Note (short form) - Note Progress Note: CC: near syncope s: no overnight events. no cp, palps, dizzy, dyspnea o: Vital Signs: Vital Signs Period Temp Pulse Resp BP Sys/Anderson Pulse Ox Last 24 Hr 97.6 F-98.9 F 68-90 18-20 122-137/67-77 97 Constitutional: Yes: No Distress, Calm Eyes: Yes: Conjunctiva Clear, EOM Intact HENT: Yes: Atraumatic, Normocephalic Neck: Yes: Supple Respiratory: Yes: Regular, CTA Bilaterally Gastrointestinal: Yes: Normal Bowel Sounds, Soft Renal/: Yes: Other (+ileostomy) Cardiovascular: Yes: Regular Rate and Rhythm JVD: No Heart Sounds: Yes: S1, S2 Edema: No Neurological: Yes: Alert, Oriented Psychiatric: Yes: Alert, Oriented Assessment/Plan Ex stress mibi 10/2014: 5 mins, 30 secs, no ischemia stress echo 10/2016 nonischemic stress test by EKG, mod T, no echo evidence of inducible ischemia, exercised 4:38 min, peak RVSP 71 mmHg, post exercise echo 06/2017 nl LV/hyperdynamic EF, mod LAE, RV tds, +IASA, valves WNL, peak TR gradient 33 mmHg, mildly dilated asc aorta carotids 09/2016 mild nonobstructive dz Holter 7 days 05/2017 NSR, sinus kalani x3 to low 50s bpm (from 2-7 AM episodes) EKG 01/13/18 sinus tach, nonspecific ST/T wave abnormality CXR no acute process echo 01/14/18 nl LV function, no sig valvular abnormalities 72M h/o HTN, HLD, colitis, TIA (no residual deficits) p/w alt mental status, near syncope near syncope, weakness - no LOC - has had workup for falls in the past in cardiology clinic including echo, 7 day holter, stress testing, carotids which were unremarkable - echo unremarkable - unlikely cardiac etiology, would not recommend further cardiac testing as inpatient - follow up neurology recs - h/o ileostomy, recurrent UTI and febrile - on IV abx, ID following, plan for CT abd/pelvis for workup of fever h/o TIA - continue statin, neuro following HTN: - controlled on metoprolol, losartan, continue HLD: - continue home statin h/o PE - on xarelto as outpatient
--- NOTE | 2018-01-15 16:28 | PN ---
Progress Note (short form) - Note Progress Note: afebrile 72 year old man admitted yesterday after neighbors called EMS for confusion found to have fever to 102.7 apparently 2 loose bms yesterday he denies loose BMS today-but nurse reports 3 loose bms ate well Vital Signs Period Temp Pulse Resp BP Sys/Anderson Pulse Ox Last 24 Hr 97.6 F-102.5 F 68-102 18-20 122-139/67-77 97 cor-rrr lungs clear abd soft,n+ostomy ext no edema CBC, BMP 01/15/18 06:00 01/15/18 06:00 Microbiology 01/13/18 15:00 Blood - Peripheral Venous Blood Culture - Preliminary NO GROWTH OBTAINED AFTER 48 HOURS, INCUBATION TO CONTINUE FOR 3 DAYS. 01/13/18 15:00 Blood - Peripheral Venous Blood Culture - Preliminary NO GROWTH OBTAINED AFTER 48 HOURS, INCUBATION TO CONTINUE FOR 3 DAYS. 01/14/18 19:00 Stool Clostridium difficile Antigen (DINESH) - Final 01/14/18 19:00 Stool Clostridium difficile Toxin Assay - Final 01/13/18 15:10 Urine - Urine - Catheterized Urine Culture - Preliminary Lactose Fermenting Neg Bacilli Lactose Fermenting Neg Bacilli#2 Group D Strep Or Entero Coccus a/p no clear source of fever given fever and thromobcytopenia will continue rocephin to cover for possible UTI diarrhea- send stool wbc and culture will send cdiff pcr as well ct scan abd/pelvis given recurrent fever to 102 and no clear source no risk factors for tick illness but leukopenia and thrombocytopenia noted add po vancomycin Problem List - Problems (1) Fever Code(s): R50.9 - FEVER, UNSPECIFIED (2) UTI (urinary tract infection) Code(s): N39.0 - URINARY TRACT INFECTION, SITE NOT SPECIFIED Qualifiers: Urinary tract infection type: acute cystitis Hematuria presence: without hematuria Qualified Code(s): N30.00 - Acute cystitis without hematuria (3) Thrombocytopenia Code(s): D69.6 - THROMBOCYTOPENIA, UNSPECIFIED
[2018-01-15] MEDS: RIVAROXABAN 20 MG TABLET PO SCH ×2 (18:36→18:40)
[2018-01-15] MEDS: VANCOMYCIN 250 MG/5 ML ORAL SOLUTION PO SCH ×2 (18:36→23:01)
[2018-01-15] MEDS: ATORVASTATIN CA 40 MG TABLET (FP) PO SCH (22:37)
[2018-01-16] MEDS: VANCOMYCIN 250 MG/5 ML ORAL SOLUTION PO SCH ×4 (05:15→23:34)
[2018-01-16] MEDS: INSULIN SLIDING SCALE (NOVOLOG) 1 VIAL SQ SCH ×4 (06:18→21:35)
--- NOTE | 2018-01-16 10:00 | PN ---
Progress Note, Physician Chief Complaint: IN ISOLATION FOR C.DIFF NAD NO CHEST PAIN - Current Medication List Current Medications: Active Medications Acetaminophen (Tylenol -) 650 mg PO Q6H PRN PRN Reason: FEVER Last Admin: 01/14/18 17:56 Dose: 650 mg Atorvastatin Calcium (Lipitor -) 40 mg PO HS [facility] Last Admin: 01/15/18 22:37 Dose: 40 mg Citalopram Hydrobromide (Celexa -) 10 mg PO DAILY [facility] Last Admin: 01/15/18 09:34 Dose: 10 mg Ceftriaxone Sodium 2 gm/ (Dextrose) 100 mls @ 200 mls/hr IVPB DAILY [facility]; Protocol Last Admin: 01/15/18 09:33 Dose: 200 mls/hr Insulin Aspart (Novolog Vial Sliding Scale -) 1 vial SQ ACHS [facility]; Protocol Last Admin: 01/16/18 06:18 Dose: Not Given Losartan Potassium (Cozaar -) 25 mg PO DAILY [facility] Last Admin: 01/15/18 09:34 Dose: 25 mg Metoprolol Succinate (Toprol Xl -) 25 mg PO DAILY [facility] Last Admin: 01/15/18 09:34 Dose: 25 mg Rivaroxaban (Xarelto -) 20 mg PO DAILY@1800 [facility] Last Admin: 01/15/18 18:40 Dose: Not Given Vancomycin HCl (Vancomycin Oral Solution) 125 mg PO Q6HPO [facility] Last Admin: 01/16/18 05:15 Dose: 125 ml - Objective Vital Signs: Vital Signs Temperature 97.9 F 01/16/18 06:00 Pulse Rate 70 01/16/18 06:00 Respiratory Rate 18 01/16/18 06:00 Blood Pressure 140/85 01/16/18 06:00 O2 Sat by Pulse Oximetry (%) 96 01/15/18 21:00 Constitutional: Yes: No Distress Eyes: Yes: WNL HENT: Yes: WNL Neck: Yes: WNL Cardiovascular: Yes: WNL Respiratory: Yes: WNL Gastrointestinal: Yes: Other Genitourinary: Yes: Other Musculoskeletal: Yes: Muscle Weakness Extremities: Yes: WNL Edema: No Peripheral Pulses WNL: Yes Integumentary: Yes: WNL Wound/Incision: Yes: Dressing Dry and Intact Neurological: Yes: Pre-Existing Deficit, Unsteady Gait ...Motor Strength: LLE, RLE Psychiatric: Yes: WNL Labs: CBC, BMP 01/15/18 06:00 01/15/18 06:00 INR, PTT INR 1.46 (0.83-1.09) 01/13/18 14:46 Problem List - Problems (1) Ileal conduit stomal stenosis Code(s): T85.858A - STENOSIS DUE TO OTHER INTERNAL PROSTH DEV/GRFT, INIT (2) Unsteady gait Code(s): R26.81 - UNSTEADINESS ON FEET (3) Toxic metabolic encephalopathy Code(s): G92 - TOXIC ENCEPHALOPATHY (4) Fever Code(s): R50.9 - FEVER, UNSPECIFIED (5) Transient alteration of awareness Code(s): R40.4 - TRANSIENT ALTERATION OF AWARENESS (6) UTI (urinary tract infection) Code(s): N39.0 - URINARY TRACT INFECTION, SITE NOT SPECIFIED Qualifiers: Urinary tract infection type: acute cystitis Hematuria presence: without hematuria Qualified Code(s): N30.00 - Acute cystitis without hematuria Assessment/Plan IV ABX PER ID CDIFF ISOLATION AWAIT CX PT EVAL NEURO F/U MRI BRAIN NO ACUTE CHANGES CHRONIC LACUNAR INFARCTS NEURO F/U CT ABD/PELVIS PENDING FALL RISKS/PT
[2018-01-16] MEDS ORDERED: DEXTROSE 5%-WATER 100 ML IVPB ONE (11:14)
[2018-01-16] MEDS: CITALOPRAM HYDROBROMIDE 10 MG TABLET (FP) PO SCH (11:26)
[2018-01-16] MEDS: LOSARTAN POTASSIUM 50 MG TABLET (FP) PO SCH (11:26)
[2018-01-16] MEDS: metoPROLOL SUCCINATE 25 MG TAB.SR.24H (FP) PO SCH (11:26)
--- NOTE | 2018-01-16 13:35 | PN ---
Progress Note (short form) - Note Progress Note: CC: near syncope s: no cp, palps, dizzy, dyspnea. o: Vital Signs: Vital Signs Period Temp Pulse Resp BP Sys/Anderson Pulse Ox Last 24 Hr 97.9 F-98.9 F 62-75 18-18 119-140/63-85 96 Constitutional: Yes: No Distress, Calm Eyes: Yes: Conjunctiva Clear, EOM Intact HENT: Yes: Atraumatic, Normocephalic Neck: Yes: Supple Respiratory: Yes: Regular, CTA Bilaterally Gastrointestinal: Yes: Normal Bowel Sounds, Soft Renal/: Yes: Other (+ileostomy) Cardiovascular: Yes: Regular Rate and Rhythm JVD: No Heart Sounds: Yes: S1, S2 Edema: No Neurological: Yes: Alert, Oriented Psychiatric: Yes: Alert, Oriented Current Medications Generic Name Dose Route Start Last Admin Trade Name Freq PRN Reason Stop Dose Admin Acetaminophen 650 mg 01/13/18 17:09 01/14/18 17:56 Tylenol - PO 650 mg Q6H PRN Administration FEVER Atorvastatin Calcium 40 mg 01/13/18 22:00 01/15/18 22:37 Lipitor - PO 40 mg HS [facility] Administration Citalopram Hydrobromide 10 mg 01/14/18 10:00 01/16/18 11:26 Celexa - PO 10 mg DAILY [facility] Administration Ceftriaxone Sodium 2 gm/ 100 mls @ 200 mls/hr 01/14/18 17:00 01/15/18 09:33 Dextrose IVPB 200 mls/hr DAILY [facility] Administration Protocol Insulin Aspart 1 vial 01/13/18 22:00 01/16/18 11:26 Novolog Vial Sliding Scale - SQ Not Given ACHS [facility] Protocol Losartan Potassium 25 mg 01/14/18 10:00 01/16/18 11:26 Cozaar - PO 25 mg DAILY [facility] Administration Metoprolol Succinate 25 mg 01/14/18 10:00 01/16/18 11:26 Toprol Xl - PO 25 mg DAILY [facility] Administration Rivaroxaban 20 mg 01/13/18 18:00 01/15/18 18:40 Xarelto - PO Not Given DAILY@[email or web address] [facility] Vancomycin HCl 125 mg 01/15/18 18:00 01/16/18 11:32 Vancomycin Oral Solution PO 125 mg Q6HPO [facility] Administration Assessment/Plan Ex stress mibi 10/2014: 5 mins, 30 secs, no ischemia stress echo 10/2016 nonischemic stress test by EKG, mod T, no echo evidence of inducible ischemia, exercised 4:38 min, peak RVSP 71 mmHg, post exercise carotids 09/2016 mild nonobstructive dz Holter 7 days 05/2017 NSR, sinus kalani x3 to low 50s bpm (from 2-7 AM episodes) EKG 01/13/18 sinus tach, nonspecific ST/T wave abnormality CXR no acute process echo 01/14/18 nl LV function, no sig valvular abnormalities 72M h/o HTN, HLD, colitis, TIA (no residual deficits) p/w alt mental status, near syncope near syncope, weakness - no LOC - has had workup for falls in the past in cardiology clinic including echo, 7 day holter, stress testing, carotids which were unremarkable - echo unremarkable - unlikely cardiac etiology, would not recommend further cardiac testing as inpatient - follow up neurology recs, MRI brain with chronic changes, old lacunar infarct - h/o ileostomy, recurrent UTI and febrile, C diff positive, weakness may be in setting of infection fever - C diff postive - CT abd/pelvis for fever workup pending - ID following, po vanc and IV ceftriaxone h/o TIA - continue statin, neuro following HTN: - controlled on metoprolol, losartan, continue HLD: - continue home statin h/o PE - per patient xarelto was stopped a few weeks ago and is on aspirin 81 mg daily - dc'ed xarelto, aspirin ordered
[2018-01-16] MEDS: CEFTRIAXONE 2 GM in DEXTROSE 5%-WATER 100 ML IVPB SCH (14:11)
--- NOTE | 2018-01-16 15:39 | PN ---
Progress Note (short form) - Note Progress Note: afebrile reports loose bms today again s/p ct scan results pending Vital Signs Period Temp Pulse Resp BP Sys/Anderson Pulse Ox Last 24 Hr 97.9 F-98.7 F 62-75 18-20 119-140/63-85 96 cor-rrr lungs clear abd soft, +ostomy ext no edema CBC, BMP 01/15/18 06:00 01/15/18 06:00 Microbiology 01/13/18 15:00 Blood - Peripheral Venous Blood Culture - Preliminary NO GROWTH OBTAINED AFTER 72 HOURS, INCUBATION TO CONTINUE FOR 2 DAYS. 01/13/18 15:00 Blood - Peripheral Venous Blood Culture - Preliminary NO GROWTH OBTAINED AFTER 72 HOURS, INCUBATION TO CONTINUE FOR 2 DAYS. 01/13/18 15:10 Urine - Urine - Catheterized Urine Culture - Preliminary Escherichia Coli Esbl [employer] Klebsiella Pneumoniae - Esbl Group D Strep Or Entero Coccus 01/14/18 19:00 Stool Clostridium difficile Antigen (DINESH) - Final 01/14/18 19:00 Stool Clostridium difficile Toxin Assay - Final a/p no clear source of fever clinically improved would d/c ceftriaxone, continue po vancomycin , f/u ct scan 3 organisms in urine suggestive of contamination, doubt UTI diarrhea- send stool wbc and culture will send cdiff pcr as well ct scan abd/pelvis given recurrent fever to 102 and no clear source no risk factors for tick illness repeat cbc in am add po vancomycin Problem List - Problems (1) Fever Code(s): R50.9 - FEVER, UNSPECIFIED (2) UTI (urinary tract infection) Code(s): N39.0 - URINARY TRACT INFECTION, SITE NOT SPECIFIED Qualifiers: Urinary tract infection type: acute cystitis Hematuria presence: without hematuria Qualified Code(s): N30.00 - Acute cystitis without hematuria (3) Thrombocytopenia Code(s): D69.6 - THROMBOCYTOPENIA, UNSPECIFIED
[2018-01-16] MEDS: ASPIRIN 81 MG CHEWABLE TABLETS PO SCH (17:23)
[2018-01-16] MEDS: ATORVASTATIN CA 40 MG TABLET (FP) PO SCH (21:28)
[2018-01-17] MEDS: VANCOMYCIN 250 MG/5 ML ORAL SOLUTION PO SCH ×4 (05:30→23:01)
[2018-01-17] MEDS: INSULIN SLIDING SCALE (NOVOLOG) 1 VIAL SQ SCH ×3 (06:34→22:32)
[2018-01-17 07:13] LABS: HEMATOCRIT 29.1 % (35.4-49); HEMOGLOBIN 9.9 GM/dL (11.7-16.9); MCH 31.3 pg (25.7-33.7); MEAN PLT VOLUME 9.4 fl (7.5-11.1); PLATELET COUNT 133 K/MM3 (134-434); RBC 3.16 M/mm3 (4.00-5.60); RDW 15.5 % (11.9-15.9); WHITE BLOOD COUNT 2.5 K/mm3 (4.0-10.0)
[2018-01-17 08:00] LABS: ANION GAP 9 (8-16); BILIRUBIN,TOTAL 0.4 mg/dL (0.2-1.0); BLOOD UREA NITROGEN 20 mg/dL (7-18); CALCIUM 8.9 mg/dL (8.5-10.1); CHLORIDE 107 mmol/L (98-107); CO2 27 mmol/L (21-32); CREATININE 0.8 mg/dL (0.7-1.3); GLUCOSE,RANDOM 110 mg/dL (74-106); MAGNESIUM 1.9 mg/dL (1.8-2.4); PHOSPHOROUS 4.2 mg/dL (2.5-4.9); POTASSIUM 3.9 mmol/L (3.5-5.1); SGOT/AST 16 U/L (15-37); SGPT/ALT 26 U/L (12-78); SODIUM 143 mmol/L (136-145); TOT PROT 6.6 g/dl (6.4-8.2)
[2018-01-17 08:01] LABS: ALK PHOS 70 U/L (45-117)
--- NOTE | 2018-01-17 10:15 | PN ---
Progress Note, Physician Chief Complaint: COMFORTABLE NAD STOOL IS IMPROVING - Current Medication List Current Medications: Active Medications Acetaminophen (Tylenol -) 650 mg PO Q6H PRN PRN Reason: FEVER Last Admin: 01/14/18 17:56 Dose: 650 mg Aspirin (Asa -) 81 mg PO DAILY [facility] Last Admin: 01/16/18 17:23 Dose: 81 mg Atorvastatin Calcium (Lipitor -) 40 mg PO HS [facility] Last Admin: 01/16/18 21:28 Dose: 40 mg Citalopram Hydrobromide (Celexa -) 10 mg PO DAILY [facility] Last Admin: 01/16/18 11:26 Dose: 10 mg Insulin Aspart (Novolog Vial Sliding Scale -) 1 vial SQ ACHS [facility]; Protocol Last Admin: 01/17/18 06:34 Dose: Not Given Losartan Potassium (Cozaar -) 25 mg PO DAILY [facility] Last Admin: 01/16/18 11:26 Dose: 25 mg Metoprolol Succinate (Toprol Xl -) 25 mg PO DAILY [facility] Last Admin: 01/16/18 11:26 Dose: 25 mg Vancomycin HCl (Vancomycin Oral Solution) 125 mg PO Q6HPO [facility] Last Admin: 01/17/18 05:30 Dose: 125 mg - Objective Vital Signs: Vital Signs Temperature 97.5 F L 01/17/18 05:56 Pulse Rate 59 L 01/17/18 05:56 Respiratory Rate 18 01/17/18 05:56 Blood Pressure 123/68 01/17/18 05:56 O2 Sat by Pulse Oximetry (%) 97 01/16/18 21:00 Constitutional: Yes: No Distress Eyes: Yes: WNL HENT: Yes: WNL Neck: Yes: WNL Cardiovascular: Yes: WNL Respiratory: Yes: WNL Gastrointestinal: Yes: WNL Genitourinary: Yes: Other Musculoskeletal: Yes: Muscle Weakness Extremities: Yes: WNL Edema: No Peripheral Pulses WNL: Yes Integumentary: Yes: WNL Wound/Incision: Yes: Clean/Dry Neurological: Yes: Unsteady Gait ...Motor Strength: LLE, RLE Psychiatric: Yes: WNL Labs: CBC, BMP 01/17/18 06:00 01/17/18 06:00 INR, PTT INR 1.46 (0.83-1.09) 01/13/18 14:46 Problem List - Problems (1) Ileal conduit stomal stenosis Code(s): T85.858A - STENOSIS DUE TO OTHER INTERNAL PROSTH DEV/GRFT, INIT (2) Unsteady gait Code(s): R26.81 - UNSTEADINESS ON FEET (3) Toxic metabolic encephalopathy Code(s): G92 - TOXIC ENCEPHALOPATHY (4) Fever Code(s): R50.9 - FEVER, UNSPECIFIED (5) Transient alteration of awareness Code(s): R40.4 - TRANSIENT ALTERATION OF AWARENESS (6) UTI (urinary tract infection) Code(s): N39.0 - URINARY TRACT INFECTION, SITE NOT SPECIFIED Qualifiers: Urinary tract infection type: acute cystitis Hematuria presence: without hematuria Qualified Code(s): N30.00 - Acute cystitis without hematuria Assessment/Plan IV ABX PER ID CDIFF ISOLATION AWAIT CX PT EVAL NEURO F/U MRI BRAIN NO ACUTE CHANGES CHRONIC LACUNAR INFARCTS NEURO F/U CT ABD/PELVIS NO ACUTE CHANGES FALL RISKS/PT STOPPED OOB TO CHAIR
[2018-01-17] MEDS: CITALOPRAM HYDROBROMIDE 10 MG TABLET (FP) PO SCH (12:35)
[2018-01-17] MEDS: LACTOBACILLUS ACIDOPHILUS 1 TABLET PO SCH (12:35)
[2018-01-17] MEDS: LOSARTAN POTASSIUM 50 MG TABLET (FP) PO SCH (12:35)
[2018-01-17] MEDS: ASPIRIN 81 MG CHEWABLE TABLETS PO SCH (12:35)
[2018-01-17] MEDS: metoPROLOL SUCCINATE 25 MG TAB.SR.24H (FP) PO SCH (12:36)
--- NOTE | 2018-01-17 13:59 | PN ---
Progress Note, Physician History of Present Illness: Clinically improved Reports 2 loose BMs this morning No c/o abdominal pain Afebrile Leukopenic - Current Medication List Current Medications: Active Medications Acetaminophen (Tylenol -) 650 mg PO Q6H PRN PRN Reason: FEVER Last Admin: 01/14/18 17:56 Dose: 650 mg Aspirin (Asa -) 81 mg PO DAILY [facility] Last Admin: 01/17/18 12:35 Dose: 81 mg Atorvastatin Calcium (Lipitor -) 40 mg PO HS [facility] Last Admin: 01/16/18 21:28 Dose: 40 mg Citalopram Hydrobromide (Celexa -) 10 mg PO DAILY [facility] Last Admin: 01/17/18 12:35 Dose: 10 mg Insulin Aspart (Novolog Vial Sliding Scale -) [address] [facility]; Protocol Last Admin: 01/17/18 06:34 Dose: Not Given Lactobacillus Acidophilus (Bacid -) 1 tab PO DAILY [facility] Last Admin: 01/17/18 12:35 Dose: 1 tab Losartan Potassium (Cozaar -) 25 mg PO DAILY [facility] Last Admin: 01/17/18 12:35 Dose: 25 mg Metoprolol Succinate (Toprol Xl -) 25 mg PO DAILY [facility] Last Admin: 01/17/18 12:36 Dose: 25 mg Vancomycin HCl (Vancomycin Oral Solution) 125 mg PO Q6HPO [facility] Last Admin: 01/17/18 12:36 Dose: 125 mg - Objective Vital Signs: Vital Signs Temperature 97.7 F 01/17/18 13:37 Pulse Rate 62 01/17/18 13:37 Respiratory Rate 18 01/17/18 13:37 Blood Pressure 108/78 01/17/18 13:37 O2 Sat by Pulse Oximetry (%) 97 01/16/18 21:00 Constitutional: Yes: No Distress Eyes: Yes: Conjunctiva Clear Cardiovascular: Yes: Regular Rate and Rhythm, S1, S2 Respiratory: Yes: CTA Bilaterally Gastrointestinal: Yes: Normal Bowel Sounds, Soft. No: Tenderness Genitourinary: Yes: Other (+ileal conduit) Edema: No Labs: CBC, BMP 01/17/18 06:00 01/17/18 06:00 INR, PTT INR 1.46 (0.83-1.09) 01/13/18 14:46 Assessment/Plan C difficile + Urinary tract colonization
[2018-01-17] MEDS: ATORVASTATIN CA 40 MG TABLET (FP) PO SCH (22:32)
[2018-01-18] MEDS: VANCOMYCIN 250 MG/5 ML ORAL SOLUTION PO SCH ×4 (05:39→23:02)
[2018-01-18] MEDS: INSULIN SLIDING SCALE (NOVOLOG) 1 VIAL SQ SCH ×4 (06:05→23:06)
[2018-01-18] MEDS: LOSARTAN POTASSIUM 50 MG TABLET (FP) PO SCH (09:28)
[2018-01-18] MEDS: metoPROLOL SUCCINATE 25 MG TAB.SR.24H (FP) PO SCH (09:28)
[2018-01-18] MEDS: CITALOPRAM HYDROBROMIDE 10 MG TABLET (FP) PO SCH (09:28)
[2018-01-18] MEDS: ASPIRIN 81 MG CHEWABLE TABLETS PO SCH (09:29)
[2018-01-18] MEDS: LACTOBACILLUS ACIDOPHILUS 1 TABLET PO SCH (09:29)
--- NOTE | 2018-01-18 10:41 | DS ---
Physical Examination Vital Signs: Vital Signs Temperature 97.7 F 01/18/18 09:00 Pulse Rate 67 01/18/18 09:00 Respiratory Rate 17 01/18/18 09:00 Blood Pressure 127/72 01/18/18 09:00 O2 Sat by Pulse Oximetry (%) 97 01/17/18 21:00 Constitutional: Yes: No Distress Eyes: Yes: WNL HENT: Yes: WNL Neck: Yes: WNL Cardiovascular: Yes: WNL Respiratory: Yes: WNL Gastrointestinal: Yes: WNL Renal/: Yes: WNL Musculoskeletal: Yes: WNL Extremities: Yes: WNL Edema: No Peripheral Pulses WNL: Yes Integumentary: Yes: WNL Wound/Incision: Yes: Clean/Dry Neurological: Yes: Unsteady Gait ...Motor Strength: LLE, RLE Psychiatric: Yes: WNL Labs: CBC, BMP 01/17/18 06:00 01/17/18 06:00 Discharge Summary Reason For Visit: UTI; TRANSIENT ALTERATION OF AWARENESS Current Active Problems Fever (Acute) Ileal conduit stomal stenosis (Acute) Thrombocytopenia (Acute) Toxic metabolic encephalopathy (Acute) Transient alteration of awareness (Acute) UTI (urinary tract infection) (Acute) Unsteady gait (Acute) Procedures: Principal: CT ABD, MRI BRAIN Hospital Course: ADMITTED FOR METABOLIC TOXIC ENCEPHALOPATHY, TREATED IV ABX, PO VANCO. CAN DC ON PO VANCO WITH [facility] Condition: Fair - Instructions Diet, Activity, Other Instructions: SEE DR APPIAH FridayJanuary AT 12PM FOR LABS AND EXAM Referrals: Duncan Appiah MD [Primary Care Provider] - Disposition: VNS/HOME HEALTH CARE - Home Medications Comprehensive Discharge Medication List: Ambulatory Orders Aspirin [ASA -] 325 mg PO DAILY 03/09/15 Cyanocobalamin [Vitamin B12 -] 1,000 mg PO DAILY 03/09/15 Folic Acid 400 mg PO DAILY 03/09/15 Clobetasol Propionate/Emoll [Temovate Emollient 0.05% Crm] 45.9 mg TD DAILY 09/28 Losartan Potassium 50 mg PO DAILY 04/19/15 Multivitamins [Multivit ([facility] Formulary)] 1 tab PO DAILY 04/19/15 Simvastatin 20 mg PO DAILY 04/19/15 Acetaminophen [Tylenol .Regular Strength -] 650 mg PO Q6H PRN #0 tablet Lactobacillus Acidophilus [Bacid -] 1 each PO DAILY tab 04/25/15 Mesalamine [Asacol HD -] 800 mg PO TID tablet. 04/25/15 Pantoprazole Sodium [Protonix -] 40 mg PO DAILY tablet.ec 04/25/15 Calcium 250Mg/Vit-D 125 Units [Oscal 250 mg+D -] 2 combo PO DAILY #60 tablet Glimepiride [Amaryl -] 2 mg PO DAILY@0700 #30 tablet 05/10/15 Sitagliptin Phosphate [Januvia -] 50 mg PO DAILY@0700 #30 tablet 05/10/15 Vancomycin Oral Solution 125 mg PO Q6HPO #20 ml 05/10/15 metroNIDAZOLE [Flagyl -] 500 mg PO TID #20 tablet 05/10/15 predniSONE [Deltasone -] 30 mg PO DAILY tablet 05/10/15 Vancomycin Oral Solution 125 mg PO Q6HPO #56 ml 01/17/18
[2018-01-18] MEDS: ATORVASTATIN CA 40 MG TABLET (FP) PO SCH (23:02)
[2018-01-19] MEDS: VANCOMYCIN 250 MG/5 ML ORAL SOLUTION PO SCH (05:48)
[2018-01-19] MEDS: INSULIN SLIDING SCALE (NOVOLOG) 1 VIAL SQ SCH (06:11)
[2018-01-19] MEDS: ASPIRIN 81 MG CHEWABLE TABLETS PO SCH (09:01)
[2018-01-19] MEDS: LOSARTAN POTASSIUM 50 MG TABLET (FP) PO SCH (09:01)
[2018-01-19] MEDS: CITALOPRAM HYDROBROMIDE 10 MG TABLET (FP) PO SCH (09:01)
[2018-01-19] MEDS: LACTOBACILLUS ACIDOPHILUS 1 TABLET PO SCH (09:01)
[2018-01-19] MEDS: metoPROLOL SUCCINATE 25 MG TAB.SR.24H (FP) PO SCH (09:02)
[2018-01-19 09:42] VITALS: BP 136/78; PULSE 77; TEMP 97.6
== END 2018-01-19 09:39 | disposition home health service (06) | DRG 371 ==
LOC: JER 14:25 → JERBED 16:16 → J7W 18:15
PROVIDERS: ADMIT Family Medicine; ATTEND Family Medicine
DX: A04.72 Enterocolitis due to Clostridium difficile, not specified as recurrent (principal); G92 Toxic encephalopathy; N39.0 Urinary tract infection, site not specified; I10 Essential (primary) hypertension; E78.5 Hyperlipidemia, unspecified; K58.9 Irritable bowel syndrome, unspecified; Z86.73 Personal history of transient ischemic attack (TIA), and cerebral infarction without residual deficits; Z85.51 Personal history of malignant neoplasm of bladder; E11.9 Type 2 diabetes mellitus without complications; R55 Syncope and collapse; R26.81 Unsteadiness on feet; Z79.84 Long term (current) use of oral hypoglycemic drugs; Z86.711 Personal history of pulmonary embolism; Z93.2 Ileostomy status; D69.6 Thrombocytopenia, unspecified; Z87.891 Personal history of nicotine dependence
CPT/HCPCS: 36415; 70450-TC; 70551-TC; 71045-TC-FY; 74176-TC; 80048; 80053; 80061; 81003; 81015; 82140; 82465; 82550; 82607; 82962; 82977; 83036; 83605; 83718; 83721; 83735; 83874; 84100; 84443; 84478; 84484; 85025; 85027; 85610; 85651; 86593; 86850; 86900; 86901; 87040; 87045; 87046; 87086; 87186; 87205; 87324; 87449; 87493; 93005; 93010; 93306-TC; 95816; 97116-GP; 97161-GP; 99284-25; J0131; J7030

== ENCOUNTER 2018-03-23 20:06 | Inpatient (IN) | payer OTHER, MEDICARE ==
--- NOTE | 2018-03-23 20:25 | PDOC ---
History of Present Illness - General Chief Complaint: Altered Mental Status Stated Complaint: Altered Mental Status Time Seen by Provider: 03/23/18 20:25 History Source: Patient Exam Limitations: Other (Pt not oriented to time (pt baseline from prior notes) , no family with pt. Responds to most questions appropriately.) - History of Present Illness Initial Comments: Pt, with PMH of bladder CA s/p ileal conduit and cystectomy (2016), HTN, HLD, presents stating he "feels the same as the last time he had a urine infection" and was brought via EMS because he "could not make it up the stairs at his apartment". The pt was admitted in February 2018 for UTI vs ileal conduit colonization, and was treated inpatient with IV antibiotics. The pt lives on his own, and his neighbor will call EMS when the pts behavior is off baseline, or has difficulty climbing the stairs at home. The pt states that he changes his conduit bag ~3-4 days. He denies any recent symptoms, including changes to urine color, pain around the conduit site, fevers/chills, nausea/vomiting, cough , abdominal pain, diarrhea or constipation. He states he takes his medications as prescribed. He drinks alcohol occasionally , and denies cigarette and other drug use. 03/24/18 21:35 Past History - Travel Traveled outside of the country in the last 30 days: No Close contact w/someone who was outside of country & ill: No - Past Medical History Allergies/Adverse Reactions: Allergies Allergy/AdvReac Type Severity Reaction Status Date / Time No Known Allergies Allergy Verified 03/23/18 20:19 Home Medications: Ambulatory Orders Cyanocobalamin [Vitamin B12 -] 1,000 mg PO DAILY 03/09/15 Multivitamins [Multivit ([facility] Formulary)] 1 tab PO DAILY 04/19/15 Calcium 250Mg/Vit-D 125 Units [Oscal 250 mg+D -] 2 combo PO DAILY #60 tablet Losartan Potassium [Cozaar -] 25 mg PO DAILY tablet 01/18/18 Metoprolol Succinate [Toprol XL -] 25 mg PO DAILY tab.sr.24h 01/18/18 Atorvastatin Ca [Lipitor] 40 mg PO DAILY 03/23/18 Azathioprine [Imuran -] 50 mg PO BID 03/23/18 Mesalamine 1.2 gm PO BID 03/23/18 Aspirin Coated [Ecotrin -] 325 mg PO DAILY 03/24/18 Anemia: No Asthma: No Cancer: Yes (PROSTATE with rad ,UROSTOMY) Cardiac Disorders: No CVA: No COPD: No CHF: No DVT: No Dementia: No Diabetes: Yes (hx borderline) GI Disorders: Yes (COLITIS) Disorders: No HTN: Yes Hypercholesterolemia: Yes Liver Disease: No Seizures: No Thyroid Disease: No - Surgical History Abdominal Surgery: Yes (HERNIA,UROSTOMY) Appendectomy: No Cardiac Surgery: No Cholecystectomy: No Lung Surgery: No Neurologic Surgery: No Orthopedic Surgery: No - Suicide/Smoking/Psychosocial Hx Smoking History: Never smoked Have you smoked in the past 12 months: No Number of Cigarettes Smoked Daily: 10 If you are a former smoker, when did you quit?: 1989 Information on smoking cessation initiated: No 'Breaking Loose' booklet given: 05/02/17 Hx Alcohol Use: No Drug/Substance Use Hx: No Substance Use Type: None Hx Substance Use Treatment: No Review of Systems - Review of Systems Able to Perform ROS?: Yes Comments:: Pt mostly answers questions appropriately, has odd answers to questions, and is often confused. 03/24/18 21:38 Is the patient limited Turkmen proficient: Yes Constitutional: Yes: Weakness (was feeling weak today, "could not walk up stairs anymore"), Weight Stable. No: Chills, Diaphoresis, Fever HEENTM: No: Recent change in vision, Nose Congestion, Hearing Loss, Throat Pain , Throat Swelling, Difficulty Swallowing Respiratory: No: Cough, Orthopnea, Shortness of Breath Cardiac (ROS): No: Chest Pain, Edema, Irregular Heart Rate, Lightheadedness, Palpitations, Syncope, Chest Tightness ABD/GI: No: Abdominal Distended, Blood Streaked Bowels, Constipated, Diarrhea, Nausea, Poor Appetite, Poor Fluid Intake, Vomiting, Indigestion, Abdominal cramping, Other (conduit bag draining well, no erythema according to pt) : Yes: Other (pt has ileal conduit bag, pt states draining yellow urine, no hematuria). No: Pain Musculoskeletal: Yes: Muscle Weakness (weakness walking up the stairs today). No: Back Pain, Joint Pain, Muscle Pain Integumentary: No: Bruising, Rash Neurological: Yes: Weakness (weakness today when attempting to walk up stairs). No: Headache, Numbness, Seizure, Tremors, Unsteady Gait, Ataxia, Dizziness Psychiatric: No: Stressors, Sleep Pattern Change, Change in Appetite Endocrine: No: Increased Urine, Change in Weight Hematologic/Lymphatic: No: Anemia, Blood Clots, Easy Bleeding All Other Systems: Reviewed and Negative *Physical Exam - Vital Signs Last Vital Signs Temp Pulse Resp BP Pulse Ox 98.1 F 73 18 145/75 97 03/23/18 20:15 03/23/18 20:15 03/23/18 20:15 03/23/18 20:15 03/23/18 20:15 - Physical Exam General Appearance: Yes: Nourished, Appropriately Dressed. No: Apparent Distress (pt lying comfortably, able to answer questions appropriately.) HEENT: positive: EOMI, HAELIGH, Normal ENT Inspection, Normal Voice, Symmetrical, Pharynx Normal, Hearing Grossly Normal. negative: Scleral Icterus (R), Scleral Icterus (L), Tonsillar Exudate, Tonsillar Erythema, Rhinorrhea Neck: positive: Trachea midline, Normal Thyroid, Supple. negative: Tender, Rigid, Lymphadenopathy (R), Lymphadenopathy (L) Respiratory/Chest: positive: Lungs Clear, Normal Breath Sounds. negative: Chest Tender, Respiratory Distress, Accessory Muscle Use Cardiovascular: positive: Regular Rhythm, Regular Rate, S1, S2. negative: Edema , JVD, Murmur Vascular Pulses: Carotid (R): 4+, Carotid (L): 4+ Gastrointestinal/Abdominal: positive: Normal Bowel Sounds, Soft, Protuberent, Other (ileal conduit bag, draining cloudy yellow urine with potent odor; mild erythema around conduit site and area of tape.). negative: Tender, Flat, Organomegaly, Pulsatile Mass, Distended, Guarding, Rebound Rectal Exam: positive: deferred Lymphatic: negative: Adenopathy, Tenderness Musculoskeletal: positive: Normal Inspection. negative: CVA Tenderness Extremity: positive: Normal Capillary Refill, Normal Inspection, Normal Range of Motion, Pelvis Stable. negative: Tender, Pedal Edema Integumentary: positive: Normal Color, Dry, Warm, Erythema (mild erythema around conduit as above). negative: Jaundice, Petechiae, Rash, Swelling, Ecchymosis Neurologic: positive: manager money II-XII NML intact, Alert, Normal Mood/Affect, Motor Strength 5/5. negative: Fully Oriented (pt believes he is "43 years old", oriented to place and year. Does not know current president.), Normal Response ( odd responses to questions, repeats "what more can I say"), EOM Palsy, Facial Droop, Sensory Deficit Procedures - Bedside Ultrasound Other: US guided IV with Dr. Escalante Heart Score/ECG Review - History History: Slightly suspicious (HTN, HLD, no chest pain currently) - Electrocardiogram EKG: Normal (T-wave inversion in anterior-lateral leads, old for pt) - Age Age: >/= 65 - Risk Factors Risk Factors Heart Score: Yes Hx Hypercholesterolemia, Yes Hx Hypertension Based on the list above the patient has:: 1-2 risk factors - Troponin Troponin: </= normal limit - Score Heart Score - Total: 3 - ECG Intrepretation Rhythm: Regular Rhythm - [place]: Normal - P and LA Delta Wave(s) Present: No WPW: No - QRS Increased Voltage: Precordial Leads Poor R Wave Progression: No Q Wave Present: No - ST and T Non Specific ST-T Wave changes: Yes Comment:: old T wave inversion in anterio-lateral leads (V3-V5) 03/23/18 22:59 - ECG Impressions Normal ECG: Yes Non-specific ST Elevation: No Ischemic Changes: No ED Treatment Course - LABORATORY CBC & Chemistry Diagram: 03/24/18 06:00 03/24/18 06:25 Medical Decision Making - Medical Decision Making Pt was seen at bedside, also will be seen by Dr. Kennedy. Pt confused (thinks he is "43 years old"), but knows the month, and is oriented to person and place. He states he "feels the same as the last time he had a urine infection" and was brought via EMS because he "could not make it up the stairs at his apartment". The pt lives on his own and changes his conduit bag ~3-4 days. He denies any recent symptoms, including changes to urine color, pain around the conduit site , fevers/chills, nausea/vomiting, cough, abdominal pain, diarrhea or constipation. PE showed cloudy urine, potent odor from urine, mild erythema around conduit site and around the tape of conduit bag. No abdominal tenderness, rebound, or guarding. Working up for AMS, ordered CT head non-contrast (r/o bleed or stroke), ECG and cardiac enzymes (r/o ACS), CBC, CMP, lactic, UA and urine culture. 03/23/18 21:12 Pt was difficult stick for labs (had to perform with US-guided IV with assistance by Dr. Escalante), pending labs. Pt on list for head CT scan. ECG showed T wave inversions V3-V5, which were seen on prior ECG. 03/23/18 22:29 Pt was taken for [address] scan. 03/23/18 23:00 (entered later) CBC: no increased WBC. Lactic WNL. CMP: no CLARE, WNL Trop <.02, Lactic 1.2 UA: WBC 320, blood 1+, leuk esterase 3+ Head CT scan showed only chronic changes, no acute pathology. Pt started on 3.375 g Zosyn and 500 mL NS (pt microbiology in the past showed sensitivity to Zosyn) for urinary infection. Called admitting team and spoke to Dr. Bautista, will admit to Dr. Morgan for further work-up of urinary infection or obstruction of conduit. Placed on isolation med/surg bed, as pt grew ESBL in past. Informed charge nurse in ER of ESBL growth. Pt comfortable, has been sleeping, with no complaints at this time. Awaiting admission to med/surg bed. 03/24/18 00:07 Pt examined next day, still in ED awaiting bed upstairs. Pt was able to eat and drink without difficulty. No complaints. 03/24/18 21:51 *DC/Admit/Observation/Transfer Diagnosis at time of Disposition: Colitis UTI (urinary tract infection) Qualifiers: Urinary tract infection type: site unspecified Hematuria presence: with hematuria Qualified Code(s): N39.0 - Urinary tract infection, site not specified HTN (hypertension) Qualifiers: Hypertension type: unspecified Qualified Code(s): I10 - Essential (primary) hypertension HLD (hyperlipidemia) Qualifiers: Hyperlipidemia type: unspecified Qualified Code(s): E78.5 - Hyperlipidemia, unspecified - Discharge Dispostion Condition at time of disposition: Stable Decision to Admit order: Yes - Referrals - Patient Instructions - Post Discharge Activity
--- NOTE | 2018-03-23 21:43 | PDOC ---
Attending Attestation - Resident Resident Name: Liz Downey - ED Attending Attestation I have performed the following: I have examined & evaluated the patient, The case was reviewed & discussed with the resident, I agree w/resident's findings & plan, Exceptions are as noted - HPI HPI: 03/23/18 21:56 72M with h/o HTN, HLD, TIA (no residuals), Borderline DM, Bladder Ca (Rad, Ileal Conduit placement), presenting with "difficulty balancing". Pt states that he was going upstairs in his building when he found that he was having difficulty staying on his feet. Pt's neighbor called EMS. Per EMS report, they were called for "altered mental status", though pt is alert and oriented in ED. Pt denies any unilateral weakness. Denies dizziness. Denies F/C. Denies abdominal pain. Denies N/V/D. Denies CP/SOB. Pt states that he has had similar episodes of the same presentation in the past and states that it often occurs when he has UTIs. - Physicial Exam PE: 03/23/18 21:44 GENERAL: Awake, alert, and fully oriented, in no acute distress. HEAD: No signs of trauma EYES: PERRLA, EOMI, sclera anicteric, conjunctiva clear ENT: Auricles normal inspection, hearing grossly normal, nares patent, oropharynx clear without exudates. Moist mucosa NECK: Nontender, no stepoffs, Normal ROM, supple, no lymphadenopathy, JVD, or masses LUNGS: Breath sounds equal, clear to auscultation bilaterally. No wheezes, and no crackles HEART: Regular rate and rhythm, normal S1 and S2, no murmurs, rubs or gallops ABDOMEN: Soft, nontender, normoactive bowel sounds. No guarding, no rebound. No masses EXTREMITIES: Normal range of motion, no edema. No clubbing or cyanosis. No cords, erythema, or tenderness NEUROLOGICAL: Cranial nerves II through XII intact. 5/5 strength and sensation in all extremities, Normal speech, normal gait, normal cerebellar function SKIN: Warm, Dry, normal turgor, no rashes or lesions noted. - Medical Decision Making 03/23/18 21:44 72 M with "difficulty balancing" and possible AMS though pt AnOx3 in ED. No focal neuro deficits on exam. Suspect infectious etiology given pt's history of recurrent UTIs. - Labs, UA, CXR - CT head - Likely admit
[2018-03-23 22:21] LABS: BASO % 0.5 % (0-2.0); EOS % 0.2 % (0-4.5); HEMATOCRIT 33.6 % (35.4-49); HEMOGLOBIN 11.3 GM/dL (11.7-16.9); LYMPH % 16.7 % (8-40); MCH 30.2 pg (25.7-33.7); MCHC 33.5 g/dl (32.0-35.9); MEAN CELL VOLUME 90.2 fl (80-96); MEAN PLT VOLUME 7.3 fl (7.5-11.1); MONO % 7.2 % (3.8-10.2); NEUT % 75.4 % (42.8-82.8); PLATELET COUNT 137 K/MM3 (134-434); RBC 3.73 M/mm3 (4.00-5.60); RDW 17.1 % (11.9-15.9)
[2018-03-23 22:40] LABS: INR 1.3 (0.83-1.09); PROTHROMBIN TIME (PATIENT) 15.4 SEC (9.7-13.0)
[2018-03-23 22:42] LABS: ACTIVATED PTT 31.6 SECONDS (25.2-36.5)
[2018-03-23 22:51] LABS: ALBUMIN 3.6 g/dl (3.4-5.0); ALK PHOS 78 U/L (45-117); ANION GAP 4 MMOL/L (8-16); BILIRUBIN,TOTAL 1.2 mg/dL (0.2-1); BLOOD UREA NITROGEN 14 mg/dL (7-18); CALCIUM 9.2 mg/dL (8.5-10.1); CHLORIDE 103 mmol/L (98-107); CO2 30 mmol/L (21-32); GLUCOSE,RANDOM 96 mg/dL (74-106); MAGNESIUM 2.1 mg/dL (1.8-2.4); PHOSPHOROUS 3.5 mg/dL (2.5-4.9); POTASSIUM 3.9 mmol/L (3.5-5.1); SGOT/AST 14 U/L (15-37); SGPT/ALT 21 U/L (13-61); SODIUM 137 mmol/L (136-145); TOT PROT 7.8 g/dl (6.4-8.2)
[2018-03-23 23:00] LABS: URINE APPEARANCE CLOUDY; URINE BILIRUBIN NEGATIVE (<2.0 mg/dL); URINE COLOR YELLOW; URINE GLUCOSE (UA) NEGATIVE (NEGATIVE); URINE KETONE NEGATIVE (NEGATIVE); URINE LEUK ESTERASE 3+ (NEGATIVE); URINE NITRITE NEGATIVE (NEGATIVE); URINE PROTEIN 1+ (NEGATIVE); URINE UROBILINOGEN NEGATIVE mg/dL (0.2-1.0)
[2018-03-23 23:04] LABS: URINE BACTERIA RARE /hpf (NONE SEEN); URINE MUCUS RARE
[2018-03-23] MEDS ORDERED: PIPERACILLIN/TAZOB 3.375 GM 3.375 GM in DEXTROSE 5%-WATER - 50 ML IVPB ONE (23:18)
[2018-03-23] MEDS ORDERED: SODIUM CHLORIDE 500 ML IV STA (23:32)
--- NOTE | 2018-03-23 23:35 | PN ---
Teaching Attending Note Name of Resident: Radha Wood ATTENDING PHYSICIAN STATEMENT I saw and evaluated the patient. I reviewed the resident's note and discussed the case with the resident. I agree with the resident's findings and plan as documented. SUBJECTIVE: Patient is a 72 year old man with history of HTN, HLD, TIA, Borderline DM, Bladder Ca (Rad, Ileal Conduit placement), presenting with "difficulty balancing ". Patient states that he was going upstairs in his building when he found that he was having difficulty staying on his feet. His neighbor called EMS. Per EMS report, they were called for "altered mental status", though patient is alert and oriented in ER. He denies any unilateral weakness, dizziness, chills, abdominal pain, vomiting or SOB. OBJECTIVE: Somnolent but arousable Vital Signs Period Temp Pulse Resp BP Sys/Anderson Pulse Ox Last 24 Hr 98.1 F 73 18 145/75 97-97 HEENT: No Jaundice, eye redness or discharge, PERRLA, EOMI. Normocephalic, atraumatic. External ears are normal and hearing is grossly intact. No nasal discharge. Neck: Supple, nontender. No palpable adenopathy or thyromegaly. No JVD Chest: Good effort. Clear to auscultation and percussion. Heart: Regular. No S3, rub or murmur Abdomen: Not distended, soft, nontender; ileal conduit with clear urine; and no HSM. No rebound or guarding. Normoactive bowel sounds. Ext: Peripheral pulses intact. No leg edema. Skin: Warm and dry. No petechiae, rash or ecchymosis. Neuro: Alert. Oriented to person and place. CN 2-12 grossly intact. Sensation grossly intact in all four extremities and DTR are symmetric. Current Medications Generic Name Dose Route Start Last Admin Trade Name Freq PRN Reason Stop Dose Admin Piperacillin Sod/Tazobactam 50 mls @ 100 mls/hr 03/23/18 23:18 Sod 3.375 gm/ Dextrose IVPB 03/23/18 23:47 ONCE ONE Protocol Home Medications Medication Instructions Recorded Cyanocobalamin [Vitamin B12 -] 1,000 mg PO DAILY 03/09/15 Multivitamins [Multivit ([facility] 1 tab PO DAILY 04/19/15 Formulary)] Calcium 250Mg/Vit-D 125 Units 2 combo PO DAILY #60 tablet 05/10/15 [Oscal 250 mg+D -] Aspirin [ASA -] 81 mg PO DAILY tab.chew 01/18/18 Losartan Potassium [Cozaar -] 25 mg PO DAILY tablet 01/18/18 Metoprolol Succinate [Toprol XL -] 25 mg PO DAILY tab.sr.24h 01/18/18 Atorvastatin Ca [Lipitor] 40 mg PO DAILY 03/23/18 Azathioprine [Imuran -] 50 mg PO BID 03/23/18 Mesalamine 1.2 gm PO BID 03/23/18 Abnormal Lab Results 03/23/18 03/23/18 03/23/18 22:12 22:12 22:12 RBC 3.73 L Hgb 11.3 L Hct 33.6 L RDW 17.1 H MPV 7.3 L D PT with INR 15.40 H INR 1.30 H Anion Gap 4 L Total Bilirubin 1.2 H AST 14 L Urine Protein Urine Blood Ur Leukocyte Esterase 03/23/18 22:30 RBC Hgb Hct RDW MPV PT with INR INR Anion Gap Total Bilirubin AST Urine Protein 1+ H Urine Blood 1+ H Ur Leukocyte Esterase 3+ H ASSESSMENT AND PLAN: 1. 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 Based on historical sensitivities for ESBL producing E.Coli and Klebsiella Pneumoniae, will treat with IV Ertapenem pending culture results. Continue IV NS, fall precautions and consult ID. 2. Anemia - Etiology unclear. Will do basic anemia work up including serial stool guaiacs, reticulocyte count and iron studies. 3. Obesity - Will provide patient all the necessary assistance, counseling and positive reinforcement to facilitate weight loss. Consult pump servicer supervisor. 4. DVT prophylaxis - Lovenox 40 mg SQ q 24 hours. 5. Advance directives - Full code
[2018-03-23] MEDS ORDERED: PIPERACILLIN/TAZOB 3.375 GM 3.375 GM/50 ML BAG IVPB ONE (23:43)
[2018-03-24] MEDS ORDERED: ERTAPENEM SODIUM 1 GM/50 ML PRE-DOCKED IVPB ONE (02:07)
--- NOTE | 2018-03-24 02:12 | HP ---
CHIEF COMPLAINT: unable to walk PCP: Dr. Appiah HISTORY OF PRESENT ILLNESS: Pt is a poor historian. Unable to obtain thorough history because pt very lethargic. 72M w/ pmhx of HTN, HLD, TIA, borderline DM (not on meds), colitis, IBS, Bladder cx (rad, ileal conduit placement), prostate cancer presented to the ED with "difficulty walking up the stairs" and a UTI. He reports that he tried walking up the stairs in his apartment, when he felt off balance and dizzy. As a result, he called his neighbor to call EMS to bring him to the hospital. Pt states that he recently went to see his PCP, Dr. Appiah, and was told he had a UTI. Pt does not recall what treatment he received for the UTI. Admits to 1 day hx of lethargy. Pt has a urostomy bag in place and states that he changes the bag himself. Denies headache, fever/chills, chest pain, sob, nausea/vomiting, diaphoresis. ER course was notable for: (1) U/A 3+ LE, WBC 320, Hgb 11.3 (2) Zosyn 3.375 gm given (3) Recent Travel: Unable to obtain PAST MEDICAL HISTORY: HTN HLD TIA Borderline DM (not on meds) Bladder cx (ileal conduit placed, 2017) colitis IBS prostate cancer PAST SURGICAL HISTORY: Cataract removal Ileostomy Social History: Smoking: Former smoker, quit 1989 Alcohol: Denies Drugs: Denies Pt currently lives alone in an apartment Family History: Denies Allergies No Known Allergies Allergy (Verified 03/23/18 20:19) HOME MEDICATIONS: Home Medications Medication Instructions Recorded Cyanocobalamin [Vitamin B12 -] 1,000 mg PO DAILY 03/09/15 Multivitamins [Multivit ([facility] 1 tab PO DAILY 04/19/15 Formulary)] Calcium 250Mg/Vit-D 125 Units 2 combo PO DAILY #60 tablet 05/10/15 [Oscal 250 mg+D -] Losartan Potassium [Cozaar -] 25 mg PO DAILY tablet 01/18/18 Metoprolol Succinate [Toprol XL -] 25 mg PO DAILY tab.sr.24h 01/18/18 Atorvastatin Ca [Lipitor] 40 mg PO DAILY 03/23/18 Azathioprine [Imuran -] 50 mg PO BID 03/23/18 Mesalamine 1.2 gm PO BID 03/23/18 Aspirin Coated [Ecotrin -] 325 mg PO DAILY 03/24/18 REVIEW OF SYSTEMS CONSTITUTIONAL: +generalized weakness, Absent: fever, chills, diaphoresis, , malaise, loss of appetite, weight change HEENT: Absent: rhinorrhea, nasal congestion, throat pain, visual changes CARDIOVASCULAR: Absent: chest pain, syncope, palpitations, irregular heart rate, lightheadedness , peripheral edema RESPIRATORY: Absent: cough, shortness of breath, dyspnea with exertion GASTROINTESTINAL: Absent: abdominal pain, abdominal distension, nausea, vomiting, diarrhea, constipation GENITOURINARY: Absent: dysuria, frequency, urgency, hesitancy, hematuria, flank pain, genital pain MUSCULOSKELETAL: Absent: myalgia, arthralgia, joint swelling, back pain, neck pain ENDOCRINE: Absent: unexplained weight gain, unexplained weight loss, heat intolerance, cold intolerance NEUROLOGIC: +dizziness, unsteady gait Absent: headache, focal weakness or paresthesias, seizure, mental status changes, bladder or bowel incontinence PHYSICAL EXAMINATION Vital Signs - 24 hr 03/23/18 03/23/18 20:15 22:21 Temperature 98.1 F Pulse Rate 73 Respiratory 18 Rate Blood Pressure 145/75 O2 Sat by Pulse 97 97 Oximetry (%) GENERAL: Drowsy, but arousable during interview; will begin to answer questions and then dozes off. Alert and oriented to person and place. NAD. Resting comfortably. HEENT: AT/NC. EOMI. DRISS. Moist mucus membranes. NECK: Supple, no LAD/JVD. LUNGS: Decreased breath sounds. No wheezes noted. Symmetric chest rise. No accessory muscle use. HEART: RRR. Normal S1, S2. No murmurs noted. ABDOMEN: Soft, ND/NT. +BS in all 4 Q's. No masses or bruits noted. MUSCULOSKELETAL: No pedal edema. 5/5 muscle strength in b/l u/l extremities. NEUROLOGICAL: Normal speech. Facial symmetry noted. Facial muscles intact. Unable to assess gait. PSYCHIATRIC: Cooperative. SKIN: Warm, dry, normal turgor, normal capillary refill. Laboratory Results - last 24 hr 03/23/18 03/23/18 03/23/18 22:12 22:12 22:12 WBC 4.0 RBC 3.73 L Hgb 11.3 L Hct 33.6 L MCV 90.2 MCH 30.2 MCHC 33.5 RDW 17.1 H Plt Count 137 MPV 7.3 L D Absolute Neuts (auto) 3.0 Neutrophils % 75.4 D Lymphocytes % 16.7 D Monocytes % 7.2 Eosinophils % 0.2 D Basophils % 0.5 Nucleated RBC % 0 PT with INR INR PTT (Actin FS) Sodium 137 Potassium 3.9 Chloride 103 Carbon Dioxide 30 Anion Gap 4 L BUN 14 Creatinine 1.0 Creat Clearance w eGFR > 60 Random Glucose 96 Lactic Acid 1.2 Calcium 9.2 Phosphorus 3.5 Magnesium 2.1 Total Bilirubin 1.2 H AST 14 L ALT 21 Alkaline Phosphatase 78 Creatine Kinase Troponin I Total Protein 7.8 Albumin 3.6 Urine Color Urine Appearance Urine pH Ur Specific [place] Urine Protein Urine Glucose (UA) Urine Ketones Urine Blood Urine Nitrite Urine Bilirubin Urine Urobilinogen Ur Leukocyte Esterase Urine WBC (Auto) Urine RBC (Auto) Urine Bacteria Urine Mucus 03/23/18 03/23/18 03/23/18 22:12 22:12 22:30 WBC RBC Hgb Hct MCV MCH MCHC RDW Plt Count MPV Absolute Neuts (auto) Neutrophils % Lymphocytes % Monocytes % Eosinophils % Basophils % Nucleated RBC % PT with INR 15.40 H INR 1.30 H PTT (Actin FS) 31.6 Sodium Potassium Chloride Carbon Dioxide Anion Gap BUN Creatinine Creat Clearance w eGFR Random Glucose Lactic Acid Calcium Phosphorus Magnesium Total Bilirubin AST ALT Alkaline Phosphatase Creatine Kinase 48 Troponin I < 0.02 Total Protein Albumin Urine Color Yellow Urine Appearance Cloudy Urine pH 6.0 Ur Specific [place] 1.013 Urine Protein 1+ H Urine Glucose (UA) Negative Urine Ketones Negative Urine Blood 1+ H Urine Nitrite Negative Urine Bilirubin Negative Urine Urobilinogen Negative Ur Leukocyte Esterase 3+ H Urine WBC (Auto) 320 Urine RBC (Auto) 12 Urine Bacteria Rare Urine Mucus Rare ASSESSMENT/PLAN: 72M w/ pmhx of HTN, HLD, TIA, borderline DM, colitis, IBS, Bladder cx (rad, ileal conduit placement) presented to the ED with altered mental status. #Toxic Metabolic Encephalopathy 2/2 UTI, unlike TIA; U/A 3+ LE, WBC 320. Last admission (03/03), pt was found to have metabolic encephalopathy 2/2 to questionable UTI or ileal conduit obstruction. 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 -Zosyn 3.375 gm given in ED; Pt has a hx of ESBL producing E. Coli, Klebsiella pneumoniae. -cont w/ Ertapenem 1gm IVPB -ID consult ordered -NS @ 75 #Anemia, unclear etiology; Hgb 11.3 -FOBT, retic count, iron studies ordered #IBS Resume home med: -Mesalamine 1.2 mg PO BID -Azathioprine 50 mg PO BID #HTN Resume home med: -Losartan Potassium 25 mg PO QD #HLD Resume home meds: -Atorvastatin 40 mg PO QD #DVT Ppx -Lovenox 40 mg SQ QD #FEN -NS @ 75 -recheck lytes in AM -sodium-controlled diet dispo -admit to med-surg Visit type - Emergency Visit Emergency Visit: Yes ED Registration Date: 03/23/18 Care time: The patient presented to the Emergency Department on the above date and was hospitalized for further evaluation of their emergent condition. - New Patient This patient is new to me today: Yes Date on this admission: 03/24/18 - Critical Care Critical Care patient: No
[2018-03-24 07:22] LABS: BASO % 0.2 % (0-2.0); EOS % 0.1 % (0-4.5); HEMATOCRIT 31.6 % (35.4-49); HEMOGLOBIN 10.5 GM/dL (11.7-16.9); MCH 29.8 pg (25.7-33.7); MCHC 33.3 g/dl (32.0-35.9); MEAN CELL VOLUME 89.6 fl (80-96); MEAN PLT VOLUME 7.9 fl (7.5-11.1); MONO % 9.5 % (3.8-10.2); NEUT % 77.2 % (42.8-82.8); PLATELET COUNT 127 K/MM3 (134-434); RBC 3.52 M/mm3 (4.00-5.60); RDW 17.1 % (11.9-15.9); WHITE BLOOD COUNT 4.2 K/mm3 (4.0-10.0)
[2018-03-24 07:52] LABS: ALBUMIN 3.2 g/dl (3.4-5.0); ALK PHOS 65 U/L (45-117); ANION GAP 6 MMOL/L (8-16); BLOOD UREA NITROGEN 17 mg/dL (7-18); CALCIUM 8.6 mg/dL (8.5-10.1); CHLORIDE 103 mmol/L (98-107); CO2 29 mmol/L (21-32); GLUCOSE,RANDOM 127 mg/dL (74-106); POTASSIUM 3.9 mmol/L (3.5-5.1); SGOT/AST 15 U/L (15-37); SGPT/ALT 21 U/L (13-61); SODIUM 138 mmol/L (136-145)
--- NOTE | 2018-03-24 10:38 | PN ---
Progress Note, Physician Chief Complaint: patient seen and examined t max 100.4 - Current Medication List Current Medications: Active Medications Aspirin (Ecotrin -) 325 mg PO DAILY [facility] Atorvastatin Calcium (Lipitor -) 40 mg PO DAILY [facility] Azathioprine (Imuran -) 50 mg PO BID [facility] Cyanocobalamin (Vitamin B12 -) 1,000 mcg PO DAILY [facility] Enoxaparin Sodium (Lovenox -) 40 mg SQ DAILY [facility] Sodium Chloride (Normal Saline -) 1,000 mls @ 75 mls/hr IV ASDIR [facility] Losartan Potassium (Cozaar -) 25 mg PO DAILY [facility] Metoprolol Succinate (Toprol Xl -) 25 mg PO DAILY [facility] Multivitamins/Minerals/Vitamin C (Tab-A-Vit -) 1 tab PO DAILY [facility] Non-Formulary Medication (Mesalamine [Mesalamine]) 1.2 gm PO BID [facility] - Objective Vital Signs: Vital Signs Temperature 99.1 F 03/24/18 07:23 Pulse Rate 82 03/24/18 07:23 Respiratory Rate 22 H 03/24/18 07:23 Blood Pressure 130/74 03/24/18 07:23 O2 Sat by Pulse Oximetry (%) 93 L 03/24/18 07:23 Constitutional: Yes: Calm Cardiovascular: Yes: Regular Rate and Rhythm, S1, S2 Respiratory: Yes: CTA Bilaterally Gastrointestinal: Yes: Normal Bowel Sounds, Soft, Other (ileal conduit) Edema: No Neurological: Yes: Alert, Oriented Labs: CBC, BMP 03/24/18 06:00 03/24/18 06:25 INR, PTT INR 1.30 (0.83-1.09) H 03/23/18 22:12 Problem List - Problems (1) UTI (urinary tract infection) Assessment/Plan: awaiting culture iv abx ID eval; UA cloudy 3+ LE and 320 wbc Code(s): N39.0 - URINARY TRACT INFECTION, SITE NOT SPECIFIED Qualifiers: Urinary tract infection type: site unspecified Hematuria presence: with hematuria Qualified Code(s): N39.0 - Urinary tract infection, site not specified; R31.9 - Hematuria, unspecified (2) HLD (hyperlipidemia) Assessment/Plan: lipitor Code(s): E78.5 - HYPERLIPIDEMIA, UNSPECIFIED Qualifiers: Hyperlipidemia type: unspecified Qualified Code(s): E78.5 - Hyperlipidemia , unspecified (3) HTN (hypertension) Assessment/Plan: joreg clements Code(s): I10 - ESSENTIAL (PRIMARY) HYPERTENSION Qualifiers: Hypertension type: unspecified Qualified Code(s): I10 - Essential (primary ) hypertension
[2018-03-24] MEDS: LOSARTAN POTASSIUM 25 MG TABLET PO SCH (10:46)
[2018-03-24] MEDS: ASPIRIN 325 MG ENTERIC COATED TABLET (FP) PO SCH (10:47)
[2018-03-24] MEDS: azaTHIOprine 50 MG TABLET PO SCH ×2 (10:47→21:47)
[2018-03-24] MEDS: ATORVASTATIN CA 40 MG TABLET (FP) PO SCH (10:47)
[2018-03-24] MEDS: ENOXAPARIN NA (PORCINE) 40 MG/0.4 ML DISP.SYRIN SQ SCH (10:48)
[2018-03-24] MEDS: MULTIVITAMINS (DAILY MVI) TABLET (FP) PO SCH (10:48)
[2018-03-24] MEDS: SODIUM CHLORIDE 1,000 ML IV SCH (10:48)
[2018-03-24] MEDS: CYANOCOBALAMIN 1,000 MCG TABLET (FP) PO SCH (10:49)
[2018-03-24] MEDS: metoPROLOL SUCCINATE 25 MG TAB.SR.24H (FP) PO SCH (10:49)
[2018-03-24] MEDS ORDERED: PIPERACILLIN/TAZOB 3.375 GM 3.375 GM in DEXTROSE 5%-WATER - 50 ML IVPB ONE (11:00)
--- NOTE | 2018-03-24 11:46 | EKG ---
Test Reason : Blood Pressure : / mmHG Vent. Rate : 078 BPM Atrial Rate : 078 BPM P-R Int : 118 ms QRS Dur : 086 ms QT Int : 380 ms P-R-T Axes : -04 009 -16 degrees QTc Int : 433 ms NORMAL SINUS RHYTHM ABNORMAL ECG Confirmed by Dean Ramirez MD ([id number]) on 03/24/2018 11:46:26 AM Referred By: Confirmed By:Dean Ramirez MD
[2018-03-24] MEDS ORDERED: PIPERACILLIN/TAZOB 3.375 GM 3.375 GM/50 ML BAG IVPB ONE (11:47)
[2018-03-24] MEDS ORDERED: ACETAMINOPHEN 325 MG TABLET (FP) ONE (11:48)
--- NOTE | 2018-03-24 13:05 | PN ---
Progress Note (short form) - Note Progress Note: ID Consult dictated Fever/ altered mental status ? Toxic metabolic encephalopathy secondary to UTI Hx ESBL Pending c/s empiric ertapenem
--- NOTE | 2018-03-24 18:53 | CONS ---
INFECTIOUS DISEASE CONSULTATION DATE OF CONSULTATION: DATE OF DICTATION: 03/24/2018 HISTORY OF PRESENT ILLNESS: The patient is a 72-year-old male with a history of bladder cancer status post ileal conduit who was evaluated for fever and altered mental status. The patient was brought to the hospital after he was found to be unsteady and confused in his residence. In the emergency room, the patient was confused and was noted to have a low-grade fever of 100.4. His urine in the ileal conduit was described as cloudy and malodorous. A CAT scan of the head was performed and was negative. Cultures were obtained and he was empirically treated with Zosyn and ertepenem. A urinalysis showed 320 white cells. A urine culture is pending. The patient has had similar presentations in the past and his altered mental status has at times been felt to be secondary to recurrent urinary tract infection. At the present time, the patient is awake but confused. He is unable to offer any meaningful history. PAST MEDICAL HISTORY: Positive for hypertension, hyperlipidemia, TIA, diabetes mellitus, bladder cancer. PAST SURGICAL HISTORY: Status post ileal conduit. ALLERGIES: No known allergies. MEDICATIONS: Vitamin B-12, multivitamins, Losartan, metoprolol, Lipitor, Imuran, Ecotrin. SOCIAL HISTORY: He lives at home alone. LABORATORY DATA: White count 4.2, platelet count 127, creatinine 1.0. PHYSICAL EXAMINATION: General: The patient is awake but confused. He is unable to offer any additional history. HEENT:: Sclerae anicteric. Heart: Heart sounds S1, S2. Lungs: Clear. Abdomen: Soft. No tenderness is elicited. The ileal conduit is present. Urine is cloudy. Extremities: Negative for edema. IMPRESSION: 1. Fever and altered mental status. Rule out toxic metabolic encephalopathy secondary to urinary tract infection. 2. History of extended spectrum beta-lactamase urinary tract infection. 3. Bladder cancer status post ileal conduit. PLAN: 1. Await sepsis workup. 2. Empiric antibiotic coverage with ertepenem, 1 gram IV piggyback daily. 3. Further recommendations pending cultures and clinical course. We will follow. 4. Contact isolation. Thank you for the kind referral. JONO GUERRA M.D. [id number]
[2018-03-24] MEDS: ERTAPENEM SODIUM 1 GM in SODIUM CHLORIDE 50 ML IVPB SCH (20:09)
[2018-03-24 20:51] VITALS: BMI 29.2
[2018-03-24] MEDS ORDERED: ACETAMINOPHEN 1000 MG/100 ML VIAL (NON FORMULARY) IVPB ONE (20:54)
[2018-03-25] MEDS: SODIUM CHLORIDE 1,000 ML IV SCH ×3 (04:12→22:00)
[2018-03-25 07:31] LABS: BASO % 0.4 % (0-2.0); EOS % 0.8 % (0-4.5); HEMATOCRIT 31.7 % (35.4-49); HEMOGLOBIN 10.5 GM/dL (11.7-16.9); LYMPH % 12.6 % (8-40); MCH 29.7 pg (25.7-33.7); MEAN PLT VOLUME 7.8 fl (7.5-11.1); MONO % 9.7 % (3.8-10.2); NEUT % 76.5 % (42.8-82.8); PLATELET COUNT 122 K/MM3 (134-434); RBC 3.52 M/mm3 (4.00-5.60); RDW 17.1 % (11.9-15.9); WHITE BLOOD COUNT 3.8 K/mm3 (4.0-10.0)
[2018-03-25 08:08] LABS: ALBUMIN 2.9 g/dl (3.4-5.0); ALK PHOS 61 U/L (45-117); ANION GAP 5 MMOL/L (8-16); BLOOD UREA NITROGEN 20 mg/dL (7-18); CALCIUM 8.3 mg/dL (8.5-10.1); CHLORIDE 106 mmol/L (98-107); CO2 28 mmol/L (21-32); CREATININE 0.8 mg/dL (0.55-1.3); GLUCOSE,RANDOM 113 mg/dL (74-106); POTASSIUM 3.8 mmol/L (3.5-5.1); SGOT/AST 13 U/L (15-37); SGPT/ALT 16 U/L (13-61); SODIUM 139 mmol/L (136-145); TOT PROT 6.7 g/dl (6.4-8.2)
--- NOTE | 2018-03-25 08:59 | PN ---
Progress Note, Physician Chief Complaint: FEVERS AMS EVENTS AND NOTES REVIEWED - Current Medication List Current Medications: Active Medications Acetaminophen (Tylenol -) 650 mg PO Q6H PRN PRN Reason: FEVER Aspirin (Ecotrin -) 325 mg PO DAILY [facility] Last Admin: 03/24/18 10:47 Dose: 325 mg Atorvastatin Calcium (Lipitor -) 40 mg PO DAILY [facility] Last Admin: 03/24/18 10:47 Dose: 40 mg Azathioprine (Imuran -) 50 mg PO BID [facility] Last Admin: 03/24/18 21:47 Dose: 50 mg Cyanocobalamin (Vitamin B12 -) 1,000 mcg PO DAILY [facility] Last Admin: 03/24/18 10:49 Dose: 1,000 mcg Enoxaparin Sodium (Lovenox -) 40 mg SQ DAILY [facility] Last Admin: 03/24/18 10:48 Dose: 40 mg Sodium Chloride (Normal Saline -) 1,000 mls @ 75 mls/hr IV ASDIR [facility] Last Admin: 03/25/18 04:12 Dose: 75 mls/hr Ertapenem 1 gm/ Sodium (Chloride) 50 mls @ 50 mls/hr IVPB DAILY [facility]; Protocol Last Admin: 03/24/18 20:09 Dose: 50 mls/hr Losartan Potassium (Cozaar -) 25 mg PO DAILY [facility] Last Admin: 03/24/18 10:46 Dose: 25 mg Metoprolol Succinate (Toprol Xl -) 25 mg PO DAILY [facility] Last Admin: 03/24/18 10:49 Dose: 25 mg Multivitamins/Minerals/Vitamin C (Tab-A-Vit -) 1 tab PO DAILY [facility] Last Admin: 03/24/18 10:48 Dose: 1 tab Non-Formulary Medication (Mesalamine [Mesalamine]) 1.2 gm PO BID [facility] - Objective Vital Signs: Vital Signs Temperature 97.6 F 03/25/18 06:32 Pulse Rate 64 03/25/18 06:32 Respiratory Rate 20 03/25/18 06:32 Blood Pressure 123/68 03/25/18 06:32 O2 Sat by Pulse Oximetry (%) 91 L 03/24/18 22:00 Constitutional: Yes: Mild Distress Eyes: Yes: WNL HENT: Yes: WNL Neck: Yes: WNL Cardiovascular: Yes: WNL Respiratory: Yes: WNL Gastrointestinal: Yes: WNL Genitourinary: Yes: WNL Musculoskeletal: Yes: Muscle Weakness Extremities: Yes: WNL Edema: No Peripheral Pulses WNL: Yes Integumentary: Yes: WNL Wound/Incision: Yes: Clean/Dry Neurological: Yes: Unsteady Gait ...Motor Strength: LLE, RLE Psychiatric: Yes: WNL Labs: CBC, BMP 03/25/18 06:30 03/25/18 06:30 INR, PTT INR 1.30 (0.83-1.09) H 03/23/18 22:12 Problem List - Problems (1) HTN (hypertension) Code(s): I10 - ESSENTIAL (PRIMARY) HYPERTENSION Qualifiers: Hypertension type: unspecified Qualified Code(s): I10 - Essential (primary ) hypertension (2) UTI (urinary tract infection) Code(s): N39.0 - URINARY TRACT INFECTION, SITE NOT SPECIFIED Qualifiers: Urinary tract infection type: site unspecified Hematuria presence: with hematuria Qualified Code(s): N39.0 - Urinary tract infection, site not specified; R31.9 - Hematuria, unspecified (3) Ileal conduit stomal stenosis Code(s): T85.858A - STENOSIS DUE TO OTHER INTERNAL PROSTH DEV/GRFT, INIT (4) Sepsis Code(s): A41.9 - SEPSIS, UNSPECIFIED ORGANISM Qualifiers: Sepsis type: sepsis due to unspecified organism Qualified Code(s): A41.9 - Sepsis, unspecified organism (5) Toxic metabolic encephalopathy Code(s): G92 - TOXIC ENCEPHALOPATHY (6) Unsteady gait Code(s): R26.81 - UNSTEADINESS ON FEET Assessment/Plan IV ABX PER ID TYLENOL PRN FALL RISKS IVF WILL NEED INFORMATION SECURITY ASSOCIATE ABX DVT PROPHYLAXIS
[2018-03-25] MEDS ORDERED: VANCOMYCIN 1 GRAM (PRE-DOCKED) 1,000 MG/250 ML BAG IVPB ONE (11:03)
--- NOTE | 2018-03-25 11:03 | PN ---
Progress Note, Physician History of Present Illness: Today awake and alert Offers no complaints Spiked temp 103 Cultures pending - Current Medication List Current Medications: Active Medications Acetaminophen (Tylenol -) 650 mg PO Q6H PRN PRN Reason: FEVER Aspirin (Ecotrin -) 325 mg PO DAILY [facility] Last Admin: 03/24/18 10:47 Dose: 325 mg Atorvastatin Calcium (Lipitor -) 40 mg PO DAILY [facility] Last Admin: 03/24/18 10:47 Dose: 40 mg Azathioprine (Imuran -) 50 mg PO BID [facility] Last Admin: 03/24/18 21:47 Dose: 50 mg Cyanocobalamin (Vitamin B12 -) 1,000 mcg PO DAILY [facility] Last Admin: 03/24/18 10:49 Dose: 1,000 mcg Enoxaparin Sodium (Lovenox -) 40 mg SQ DAILY [facility] Last Admin: 03/24/18 10:48 Dose: 40 mg Sodium Chloride (Normal Saline -) 1,000 mls @ 75 mls/hr IV ASDIR [facility] Last Admin: 03/25/18 04:12 Dose: 75 mls/hr Ertapenem 1 gm/ Sodium (Chloride) 50 mls @ 50 mls/hr IVPB DAILY [facility]; Protocol Last Admin: 03/24/18 20:09 Dose: 50 mls/hr Losartan Potassium (Cozaar -) 25 mg PO DAILY [facility] Last Admin: 03/24/18 10:46 Dose: 25 mg Metoprolol Succinate (Toprol Xl -) 25 mg PO DAILY [facility] Last Admin: 03/24/18 10:49 Dose: 25 mg Multivitamins/Minerals/Vitamin C (Tab-A-Vit -) 1 tab PO DAILY [facility] Last Admin: 03/24/18 10:48 Dose: 1 tab Non-Formulary Medication (Mesalamine [Mesalamine]) 1.2 gm PO BID [facility] - Objective Vital Signs: Vital Signs Temperature 97.6 F 03/25/18 06:32 Pulse Rate 64 03/25/18 06:32 Respiratory Rate 20 03/25/18 06:32 Blood Pressure 123/68 03/25/18 06:32 O2 Sat by Pulse Oximetry (%) 91 L 03/24/18 22:00 Constitutional: Yes: No Distress Eyes: Yes: Conjunctiva Clear Cardiovascular: Yes: Regular Rate and Rhythm, S1, S2 Respiratory: Yes: CTA Bilaterally Gastrointestinal: Yes: Normal Bowel Sounds, Soft, Other (+ ileal conduit). No: Tenderness Edema: No Labs: CBC, BMP 03/25/18 06:30 03/25/18 06:30 INR, PTT INR 1.30 (0.83-1.09) H 03/23/18 22:12 Assessment/Plan UTI/ possible sepsis secondary to UTI Toxic metabolic encephalopathy- resolved Hx ESBL Await c/s Continue ertapenem Stat dose vancomycin
[2018-03-25] MEDS: ERTAPENEM SODIUM 1 GM in SODIUM CHLORIDE 50 ML IVPB SCH (11:05)
[2018-03-25] MEDS: ASPIRIN 325 MG ENTERIC COATED TABLET (FP) PO SCH (11:05)
[2018-03-25] MEDS: metoPROLOL SUCCINATE 25 MG TAB.SR.24H (FP) PO SCH (11:05)
[2018-03-25] MEDS: ATORVASTATIN CA 40 MG TABLET (FP) PO SCH (11:05)
[2018-03-25] MEDS: MULTIVITAMINS (DAILY MVI) TABLET (FP) PO SCH (11:06)
[2018-03-25] MEDS: CYANOCOBALAMIN 1,000 MCG TABLET (FP) PO SCH (11:06)
[2018-03-25] MEDS: ENOXAPARIN NA (PORCINE) 40 MG/0.4 ML DISP.SYRIN SQ SCH (11:06)
[2018-03-25] MEDS: LOSARTAN POTASSIUM 25 MG TABLET PO SCH (11:06)
[2018-03-25] MEDS: azaTHIOprine 50 MG TABLET PO SCH ×2 (11:07→22:00)
[2018-03-25 14:15] LABS: SERUM IRON SATURATION 11 % (15-55); TOTAL IRON BINDING CAPACITY 220 ug/dL (250-450); UIBC 195 ug/dL (111-343)
[2018-03-25] MEDS: ACETAMINOPHEN 325 MG TABLET (FP) PO PRN (15:54)
--- NOTE | 2018-03-25 18:19 | CONSULT ---
Consult - text type - Consultation Consultation Note: NEUROLOGY CONSULTATION is greatly appreciated: Events and CT scan reviewed. Patient examined. This 72 yo RH man lives alone.PMH sig for HTN, Chol, GERD, Ulcerative colitis and Bladder cancer. S/p Ileal conduit 06/01. Maintained on: Cyanocobalamin; Calcium; Losartan; Metoprolol; Atorvastatin; Azathioprine; Aspirin. Seen by me 02/17/18 with confusion and UTI. He had a similar presentation in December. He was already improved when I examined him, but still had a mild baseline OMS. MRI of brain (02/15/18) shows some atrophy but diffuse periventricular and subcortical microvascular changes including yordan lacunar infarcts. Now readmitted (#3) with confusion, weakness and urinary VOM=290. May not mount leukocytosis due to chronic azathiaprine Rx. Now on emipenum and vancomicin. Patient was too weak to get OO Bed but denies LOC. CT of head (reviewed): Mild atrophy and microvascular changes. No acute changes. DONTAE: S/P Ileal conduit. s/p LOOP MONITOR. No bruits. Cor reg. No head trauma. NEURO: Remembers me. Ox [facility] 03/20 or 12/01. Trump. Recalls 0 of 3 @ 3 mins. Fluent speech CN II-XII: Normal. Motor: No drift. Min right thumb tremor. Min cogwheeling on the right. Normal reflexes. Toes downgoing. Coord: No FTN Dystaxia Sensory: Normal Gait: Sl wide-based. sl shuffling. IMP: Mild B/L cerebral dysfunction. Worsened by Toxic-metabolic encephalopathy (UTI/ urosepsis) SUGGEST: check B12, TSH, RPR Check orthostatic BP's Cardiology ([place]) to query Loop Monitor Mobilize with PT Consider Colonic-conduit Fistula as a cause of recurrent, mixed shani UTI's. Help patient to obtain [facility] to call for help if necessary. Neurology follow-up as out patient for cognitive Rx. Thank you very much, Micah Donahue MD
[2018-03-26] MEDS: ACETAMINOPHEN 325 MG TABLET (FP) PO PRN ×2 (05:06→15:00)
[2018-03-26] MEDS: SODIUM CHLORIDE 1,000 ML IV SCH (06:19)
--- NOTE | 2018-03-26 09:48 | PN ---
Progress Note, Physician Chief Complaint: AWAKE AGITATED, UPSET OVER HIS HEALTH I SPOKE WITH HIM, AND SPENT SOME TIME DISCUSSING HIS ILEO-CONDUIT AND WHY HE GETS FREQUENT UTI DENIES CHEST PAIN NO SOB - Current Medication List Current Medications: Active Medications Acetaminophen (Tylenol -) 650 mg PO Q6H PRN PRN Reason: FEVER Last Admin: 03/26/18 05:06 Dose: 650 mg Aspirin (Ecotrin -) 325 mg PO DAILY [facility] Last Admin: 03/25/18 11:05 Dose: 325 mg Atorvastatin Calcium (Lipitor -) 40 mg PO DAILY [facility] Last Admin: 03/25/18 11:05 Dose: 40 mg Azathioprine (Imuran -) 50 mg PO BID [facility] Last Admin: 03/25/18 22:00 Dose: 50 mg Cyanocobalamin (Vitamin B12 -) 1,000 mcg PO DAILY [facility] Last Admin: 03/25/18 11:06 Dose: 1,000 mcg Enoxaparin Sodium (Lovenox -) 40 mg SQ DAILY [facility] Last Admin: 03/25/18 11:06 Dose: 40 mg Sodium Chloride (Normal Saline -) 1,000 mls @ 75 mls/hr IV ASDIR [facility] Last Admin: 03/26/18 06:19 Dose: Not Given Ertapenem 1 gm/ Sodium (Chloride) 50 mls @ 50 mls/hr IVPB DAILY [facility]; Protocol Last Admin: 03/25/18 11:05 Dose: 50 mls/hr Losartan Potassium (Cozaar -) 25 mg PO DAILY [facility] Last Admin: 03/25/18 11:06 Dose: 25 mg Metoprolol Succinate (Toprol Xl -) 25 mg PO DAILY [facility] Last Admin: 03/25/18 11:05 Dose: 25 mg Multivitamins/Minerals/Vitamin C (Tab-A-Vit -) 1 tab PO DAILY [facility] Last Admin: 03/25/18 11:06 Dose: 1 tab Non-Formulary Medication (Mesalamine [Mesalamine]) 1.2 gm PO BID [facility] - Objective Vital Signs: Vital Signs Temperature 99.9 F H 03/26/18 06:23 Pulse Rate 84 03/26/18 06:36 Respiratory Rate 20 03/26/18 06:36 Blood Pressure 142/64 03/26/18 06:36 O2 Sat by Pulse Oximetry (%) 95 03/25/18 21:00 Constitutional: Yes: Mild Distress Eyes: Yes: WNL HENT: Yes: WNL Neck: Yes: WNL Cardiovascular: Yes: WNL Respiratory: Yes: WNL Gastrointestinal: Yes: WNL Genitourinary: Yes: Other (ILUEOCONDUIT) Musculoskeletal: Yes: Muscle Weakness Extremities: Yes: Other Edema: Yes Edema: LLE: Trace, RLE: Trace Peripheral Pulses WNL: Yes Integumentary: Yes: WNL Wound/Incision: Yes: Clean/Dry Neurological: Yes: Unsteady Gait ...Motor Strength: LLE, RLE Psychiatric: Yes: WNL Labs: CBC, BMP 03/25/18 06:30 03/25/18 06:30 INR, PTT INR 1.30 (0.83-1.09) H 03/23/18 22:12 Problem List - Problems (1) HTN (hypertension) Code(s): I10 - ESSENTIAL (PRIMARY) HYPERTENSION Qualifiers: Hypertension type: unspecified Qualified Code(s): I10 - Essential (primary ) hypertension (2) UTI (urinary tract infection) Code(s): N39.0 - URINARY TRACT INFECTION, SITE NOT SPECIFIED Qualifiers: Urinary tract infection type: site unspecified Hematuria presence: with hematuria Qualified Code(s): N39.0 - Urinary tract infection, site not specified; R31.9 - Hematuria, unspecified (3) Ileal conduit stomal stenosis Code(s): T85.858A - STENOSIS DUE TO OTHER INTERNAL PROSTH DEV/GRFT, INIT (4) Sepsis Code(s): A41.9 - SEPSIS, UNSPECIFIED ORGANISM Qualifiers: Sepsis type: sepsis due to unspecified organism Qualified Code(s): A41.9 - Sepsis, unspecified organism (5) Toxic metabolic encephalopathy Code(s): G92 - TOXIC ENCEPHALOPATHY (6) Unsteady gait Code(s): R26.81 - UNSTEADINESS ON FEET Assessment/Plan IV ABX PER ID MAY NEED INSIDE B2B SALES ABX TYLENOL PRN FALL RISKS NEURO/CARDIOLOGY EVAL IVF DVT PROPHYLAXIS
[2018-03-26] MEDS: ASPIRIN 325 MG ENTERIC COATED TABLET (FP) PO SCH (11:08)
[2018-03-26] MEDS: ATORVASTATIN CA 40 MG TABLET (FP) PO SCH (11:08)
[2018-03-26] MEDS: LOSARTAN POTASSIUM 25 MG TABLET PO SCH (11:08)
[2018-03-26] MEDS: ERTAPENEM SODIUM 1 GM in SODIUM CHLORIDE 50 ML IVPB SCH (11:08)
[2018-03-26] MEDS: azaTHIOprine 50 MG TABLET PO SCH ×2 (11:09→22:34)
[2018-03-26] MEDS: MULTIVITAMINS (DAILY MVI) TABLET (FP) PO SCH (11:09)
[2018-03-26] MEDS: metoPROLOL SUCCINATE 25 MG TAB.SR.24H (FP) PO SCH (11:09)
[2018-03-26] MEDS: CYANOCOBALAMIN 1,000 MCG TABLET (FP) PO SCH (11:09)
[2018-03-26] MEDS: ENOXAPARIN NA (PORCINE) 40 MG/0.4 ML DISP.SYRIN SQ SCH (11:09)
--- NOTE | 2018-03-26 11:40 | CON.CARD ---
Cardiology Consult (text) - Consultation Consultation Note: - History of Present Illness Chief Complaint: weakness History of Present Illness: 72M h/o HTN, HLD, colitis, TIA (no residual deficits) p/w weakness. No cp sob palps dizzy loc pnd orthopnea le edema. Found to have uti/sepsis. Sees dr sibley for cardio. - Past Medical History FERN GATHERER: Yes: TIA Cardio/Vascular: Yes: HTN, Hyperlipdemia Gastrointestinal: Yes: Inflamatory Bowel Disease Renal/: Yes: BPH, UTI, Other (SEE ABOVE) Endocrine: Yes: Diabetes Mellitus - Past Surgical History Past Surgical History: Yes: Cataract Removal - Alcohol/Substance Use Hx Alcohol Use: No - Smoking History Smoking history: Unknown if ever smoked Have you smoked in the past 12 months: No Aproximately how many cigarettes per day: 10 If you are a former smoker, when did you quit?: 1989 Home Medications - Allergies Allergies/Adverse Reactions: Allergies Allergy/AdvReac Type Severity Reaction Status Date / Time No Known Allergies Allergy Verified 03/23/18 20:19 - Home Medications Home Medications Medication Instructions Recorded Cyanocobalamin [Vitamin B12 -] 1,000 mg PO DAILY 03/09/15 Multivitamins [Multivit ([facility] 1 tab PO DAILY 04/19/15 Formulary)] Calcium 250Mg/Vit-D 125 Units 2 combo PO DAILY #60 tablet 05/10/15 [Oscal 250 mg+D -] Losartan Potassium [Cozaar -] 25 mg PO DAILY tablet 01/18/18 Metoprolol Succinate [Toprol XL -] 25 mg PO DAILY tab.sr.24h 01/18/18 Atorvastatin Ca [Lipitor] 40 mg PO DAILY 03/23/18 Azathioprine [Imuran -] 50 mg PO BID 03/23/18 Mesalamine 1.2 gm PO BID 03/23/18 Aspirin Coated [Ecotrin -] 325 mg PO DAILY 03/24/18 Review of Systems - Review of Systems Constitutional: reports: Weakness Eyes: reports: No Symptoms HENT: reports: No Symptoms Neck: reports: No Symptoms Cardiovascular: reports: No Symptoms Respiratory: reports: No Symptoms Gastrointestinal: reports: No Symptoms Neurological: reports: No Symptoms Endocrine: reports: No Symptoms Psychiatric: reports: No Symptoms Vital Signs: Vital Signs Period Temp Pulse Resp BP Sys/Anderson Pulse Ox Last 24 Hr 98.4 F-102.8 F 84-93 18-20 118-142/64-67 95 Constitutional: Yes: No Distress, Calm Eyes: Yes: Conjunctiva Clear, EOM Intact HENT: Yes: Atraumatic, Normocephalic Neck: Yes: Supple Respiratory: Yes: Regular, CTA Bilaterally Gastrointestinal: Yes: Normal Bowel Sounds, Soft Renal/: Yes: Other (+ileostomy) Cardiovascular: Yes: Regular Rate and Rhythm JVD: No Heart Sounds: Yes: S1, S2 Edema: No Neurological: Yes: Alert, Oriented Psychiatric: Yes: Alert, Oriented no jaundice diaphoresis Laboratory Last Values WBC 3.8 K/mm3 (4.0-10.0) L 03/25/18 06:30 RBC 3.52 M/mm3 (4.00-5.60) L 03/25/18 06:30 Hgb 10.5 GM/dL (11.7-16.9) L 03/25/18 06:30 Hct 31.7 % (35.4-49) L 03/25/18 06:30 MCV 90.0 fl (80-96) 03/25/18 06:30 MCH 29.7 pg (25.7-33.7) 03/25/18 06:30 MCHC 33.0 g/dl (32.0-35.9) 03/25/18 06:30 RDW 17.1 % (11.9-15.9) H 03/25/18 06:30 Plt Count 122 K/MM3 (134-434) L 03/25/18 06:30 MPV 7.8 fl (7.5-11.1) 03/25/18 06:30 Absolute Neuts (auto) 2.9 K/mm3 (1.5-8.0) 03/25/18 06:30 Neutrophils % 76.5 % (42.8-82.8) 03/25/18 06:30 Lymphocytes % 12.6 % (8-40) 03/25/18 06:30 Monocytes % 9.7 % (3.8-10.2) 03/25/18 06:30 Eosinophils % 0.8 % (0-4.5) D 03/25/18 06:30 Basophils % 0.4 % (0-2.0) 03/25/18 06:30 Nucleated RBC % 0 % (0-0) 03/25/18 06:30 PT with INR 15.40 SEC (9.7-13.0) H 03/23/18 22:12 INR 1.30 (0.83-1.09) H 03/23/18 22:12 PTT (Actin FS) 31.6 SECONDS (25.2-36.5) 03/23/18 22:12 Sodium 139 mmol/L (136-145) 03/25/18 06:30 Potassium 3.8 mmol/L (3.5-5.1) 03/25/18 06:30 Chloride 106 mmol/L (98-107) 03/25/18 06:30 Carbon Dioxide 28 mmol/L (21-32) 03/25/18 06:30 Anion Gap 5 MMOL/L (8-16) L 03/25/18 06:30 BUN 20 mg/dL (7-18) H 03/25/18 06:30 Creatinine 0.8 mg/dL (0.55-1.3) 03/25/18 06:30 Creat Clearance w eGFR > 60 (>60) 03/25/18 06:30 Random Glucose 113 mg/dL (74-106) H 03/25/18 06:30 Lactic Acid 1.2 mmol/L (0.4-2.0) 03/23/18 22:12 Calcium 8.3 mg/dL (8.5-10.1) L 03/25/18 06:30 Phosphorus 3.5 mg/dL (2.5-4.9) 03/23/18 22:12 Magnesium 2.1 mg/dL (1.8-2.4) 03/23/18 22:12 Iron 25 ug/dL (38-169) L 03/24/18 13:00 TIBC 220 ug/dL (250-450) L 03/24/18 13:00 Iron Saturation 11 % (15-55) L 03/24/18 13:00 Transferrin 171 mg/dL (200-370) L 03/24/18 13:00 Ferritin 349.2 ng/ml (8-388) 03/24/18 06:25 Total Bilirubin 1.0 mg/dL (0.2-1) 03/25/18 06:30 AST 13 U/L (15-37) L 03/25/18 06:30 ALT 16 U/L (13-61) 03/25/18 06:30 Alkaline Phosphatase 61 U/L (45-117) 03/25/18 06:30 Creatine Kinase 48 IU/L (26-308) 03/23/18 22:12 Troponin I < 0.02 ng/ml (0.00-0.05) 03/23/18 22:12 Total Protein 6.7 g/dl (6.4-8.2) 03/25/18 06:30 Albumin 2.9 g/dl (3.4-5.0) L 03/25/18 06:30 Urine Color Yellow 03/23/18 22:30 Urine Appearance Cloudy 03/23/18 22:30 Urine pH 6.0 (5.0-8.0) 03/23/18 22:30 Ur Specific Chandler 1.013 (1.010-1.035) 03/23/18 22:30 Urine Protein 1+ (NEGATIVE) H 03/23/18 22:30 Urine Glucose (UA) Negative (NEGATIVE) 03/23/18 22:30 Urine Ketones Negative (NEGATIVE) 03/23/18 22:30 Urine Blood 1+ (NEGATIVE) H 03/23/18 22:30 Urine Nitrite Negative (NEGATIVE) 03/23/18 22:30 Urine Bilirubin Negative (<2.0 mg/dL) 03/23/18 22:30 Urine Urobilinogen Negative mg/dL (0.2-1.0) 03/23/18 22:30 Ur Leukocyte Esterase 3+ (NEGATIVE) H 03/23/18 22:30 Urine WBC (Auto) 320 /hpf (3-5) 03/23/18 22:30 Urine RBC (Auto) 12 /hpf (0-3) 03/23/18 22:30 Urine Bacteria Rare /hpf (NONE SEEN) 03/23/18 22:30 Urine Mucus Rare 03/23/18 22:30 Stool Occult Blood Negative (NEGATIVE) 03/25/18 17:00 Ex stress mibi 10/2014: 5 mins, 30 secs, no ischemia stress echo 10/2016 nonischemic stress test by EKG, mod T, no echo evidence of inducible ischemia, exercised 4:38 min, peak RVSP 71 mmHg, post exercise carotids 09/2016 mild nonobstructive dz Holter 7 days 05/2017 NSR, sinus kalani x3 to low 50s bpm (from 2-7 AM episodes) ecg: sr, nl intervals, lat twis, no sig change prior CXR no acute process echo 01/14/18 nl LV function, no sig valvular abnormalities a/p: 72M h/o HTN, HLD, colitis, TIA (no residual deficits) p/w weakness. weakness, uti, sepsis: -high fever overnight -cont abx per ID near syncope: - has had workup for falls in the past in cardiology clinic including echo, 7 day holter, stress testing, carotids which were unremarkable - echo unremarkable - thus far does not seem cardiac in etiology - currently has loop recorder in place, cont outpt monitoring h/o TIA - continue statin, neuro following HTN: - controlled on metoprolol, losartan, continue HLD: - continue home statin h/o PE - xarelto was stopped and is on aspirin 81 mg daily now
--- NOTE | 2018-03-26 14:54 | PN ---
Progress Note, Physician History of Present Illness: OOB in chair Offers no complaints remains febrile Blood c/s no growth Urine c/s ESBL - Current Medication List Current Medications: Active Medications Acetaminophen (Tylenol -) 650 mg PO Q6H PRN PRN Reason: FEVER Last Admin: 03/26/18 05:06 Dose: 650 mg Aspirin (Ecotrin -) 325 mg PO DAILY [facility] Last Admin: 03/26/18 11:08 Dose: 325 mg Atorvastatin Calcium (Lipitor -) 40 mg PO DAILY [facility] Last Admin: 03/26/18 11:08 Dose: 40 mg Azathioprine (Imuran -) 50 mg PO BID [facility] Last Admin: 03/26/18 11:09 Dose: 50 mg Cyanocobalamin (Vitamin B12 -) 1,000 mcg PO DAILY [facility] Last Admin: 03/26/18 11:09 Dose: 1,000 mcg Enoxaparin Sodium (Lovenox -) 40 mg SQ DAILY [facility] Last Admin: 03/26/18 11:09 Dose: 40 mg Sodium Chloride (Normal Saline -) 1,000 mls @ 75 mls/hr IV ASDIR [facility] Last Admin: 03/26/18 06:19 Dose: Not Given Ertapenem 1 gm/ Sodium (Chloride) 50 mls @ 50 mls/hr IVPB DAILY [facility]; Protocol Last Admin: 03/26/18 11:08 Dose: 50 mls/hr Losartan Potassium (Cozaar -) 25 mg PO DAILY [facility] Last Admin: 03/26/18 11:08 Dose: 25 mg Metoprolol Succinate (Toprol Xl -) 25 mg PO DAILY [facility] Last Admin: 03/26/18 11:09 Dose: 25 mg Multivitamins/Minerals/Vitamin C (Tab-A-Vit -) 1 tab PO DAILY [facility] Last Admin: 03/26/18 11:09 Dose: 1 tab Non-Formulary Medication (Mesalamine [Mesalamine]) 1.2 gm PO BID [facility] - Objective Vital Signs: Vital Signs Temperature 98.6 F 03/26/18 09:00 Pulse Rate 77 03/26/18 09:00 Respiratory Rate 20 03/26/18 09:00 Blood Pressure 122/69 03/26/18 09:00 O2 Sat by Pulse Oximetry (%) 95 03/25/18 21:00 Constitutional: Yes: No Distress Eyes: Yes: Conjunctiva Clear HENT: Yes: Rhinnorhea, Other Cardiovascular: Yes: Regular Rate and Rhythm, S1, S2 Respiratory: Yes: CTA Bilaterally Gastrointestinal: Yes: Normal Bowel Sounds, Soft. No: Tenderness Genitourinary: Yes: Other (+ ileal conduit) Labs: CBC, BMP 03/25/18 06:30 03/25/18 06:30 INR, PTT INR 1.30 (0.83-1.09) H 03/23/18 22:12 Assessment/Plan UTI/ possible sepsis secondary to UTI Toxic metabolic encephalopathy Hx ESBL ? viral illness ( fever/ leukopenia/ thrombocytopenia ) Await c/s Continue ertapenem Repeat blood c/s for persistant fever may need "FUO" w/u Flu swab
[2018-03-26] MEDS ORDERED: PT OWN MED DRAWER 7, Y5N ONE (19:52)
[2018-03-27] MEDS ORDERED: PT OWN MED DRAWER 7, Y5N ONE ×2 (10:47→11:36)
[2018-03-27] MEDS: LOSARTAN POTASSIUM 25 MG TABLET PO SCH (10:56)
[2018-03-27] MEDS: metoPROLOL SUCCINATE 25 MG TAB.SR.24H (FP) PO SCH (10:56)
[2018-03-27] MEDS: MULTIVITAMINS (DAILY MVI) TABLET (FP) PO SCH (10:57)
[2018-03-27] MEDS: ASPIRIN 325 MG ENTERIC COATED TABLET (FP) PO SCH (10:57)
[2018-03-27] MEDS: azaTHIOprine 50 MG TABLET PO SCH ×2 (10:57→22:02)
[2018-03-27] MEDS: CYANOCOBALAMIN 1,000 MCG TABLET (FP) PO SCH (10:57)
[2018-03-27] MEDS: ENOXAPARIN NA (PORCINE) 40 MG/0.4 ML DISP.SYRIN SQ SCH (10:58)
[2018-03-27] MEDS: ERTAPENEM SODIUM 1 GM in SODIUM CHLORIDE 50 ML IVPB SCH (10:58)
[2018-03-27] MEDS: ATORVASTATIN CA 40 MG TABLET (FP) PO SCH (11:00)
--- NOTE | 2018-03-27 12:32 | PN ---
Progress Note (short form) - Note Progress Note: s: no cp palps dizzy sob o: Vital Signs Period Temp Pulse Resp BP Sys/Anderson Pulse Ox Last 24 Hr 99.2 F-102.1 F 79-92 19-20 128-150/59-77 Constitutional: Yes: No Distress, Calm Eyes: Yes: Conjunctiva Clear Neck: Yes: Supple Respiratory: Yes: Regular, CTA Bilaterally Gastrointestinal: Yes: Normal Bowel Sounds, Soft Cardiovascular: Yes: Regular Rate and Rhythm JVD: No Heart Sounds: Yes: S1, S2 Edema: No Psychiatric: Yes: Alert, Oriented no jaundice diaphoresis Current Medications Generic Name Dose Route Start Last Admin Trade Name Freq PRN Reason Stop Dose Admin Acetaminophen 650 mg 03/24/18 10:38 03/26/18 15:00 Tylenol - PO 650 mg Q6H PRN Administration FEVER Aspirin 325 mg 03/24/18 10:00 03/27/18 10:57 Ecotrin - PO 325 mg DAILY [facility] Administration Atorvastatin Calcium 40 mg 03/24/18 10:00 03/27/18 11:00 Lipitor - PO 40 mg DAILY [facility] Administration Azathioprine 50 mg 03/24/18 10:00 03/27/18 10:57 Imuran - PO 50 mg BID [facility] Administration Cyanocobalamin 1,000 mcg 03/24/18 10:00 03/27/18 10:57 Vitamin B12 - PO 1,000 mcg DAILY [facility] Administration Enoxaparin Sodium 40 mg 03/24/18 10:00 03/27/18 10:58 Lovenox - SQ 40 mg DAILY [facility] Administration Sodium Chloride 1,000 mls @ 75 mls/hr 03/24/18 06:45 03/26/18 06:19 Normal Saline - IV Not Given ASDIR [facility] Ertapenem 1 gm/ Sodium 50 mls @ 50 mls/hr 03/24/18 18:00 03/27/18 10:58 Chloride IVPB 50 mls/hr DAILY [facility] Administration Protocol Losartan Potassium 25 mg 03/24/18 10:00 03/27/18 10:56 Cozaar - PO 25 mg DAILY [facility] Administration Metoprolol Succinate 25 mg 03/24/18 10:00 03/27/18 10:56 Toprol Xl - PO 25 mg DAILY [facility] Administration Multivitamins/Minerals/Vitamin C 1 tab 03/24/18 10:00 03/27/18 10:57 Tab-A-Vit - PO 1 tab DAILY [facility] Administration Non-Formulary Medication 1.2 gm 03/24/18 10:00 Mesalamine [Mesalamine] PO BID [facility] CBC, BMP 03/25/18 06:30 03/25/18 06:30 Ex stress mibi 10/2014: 5 mins, 30 secs, no ischemia stress echo 10/2016 nonischemic stress test by EKG, mod T, no echo evidence of inducible ischemia, exercised 4:38 min, peak RVSP 71 mmHg, post exercise carotids 09/2016 mild nonobstructive dz Holter 7 days 05/2017 NSR, sinus kalani x3 to low 50s bpm (from 2-7 AM episodes) ecg: sr, nl intervals, lat twis, no sig change prior CXR no acute process echo 01/14/18 nl LV function, no sig valvular abnormalities a/p: 72M h/o HTN, HLD, colitis, TIA (no residual deficits) p/w weakness. weakness, uti, sepsis: -cont abx per ID near syncope: - has had workup for falls in the past in cardiology clinic including echo, 7 day holter, stress testing, carotids which were unremarkable - echo unremarkable - thus far does not seem cardiac in etiology - currently has loop recorder in place, cont outpt monitoring h/o TIA - continue statin, neuro following HTN: - controlled on metoprolol, losartan, continue HLD: - continue home statin h/o PE -xarelto was stopped and is on aspirin 81 mg daily now
--- NOTE | 2018-03-27 13:09 | PN ---
Progress Note, Physician History of Present Illness: Awake, alert in bed No complaints offerred Recurent temp noted Repeat BC obtained Leukopenic Flu screen negative - Current Medication List Current Medications: Active Medications Acetaminophen (Tylenol -) 650 mg PO Q6H PRN PRN Reason: FEVER Last Admin: 03/26/18 15:00 Dose: 650 mg Aspirin (Ecotrin -) 325 mg PO DAILY [facility] Last Admin: 03/27/18 10:57 Dose: 325 mg Atorvastatin Calcium (Lipitor -) 40 mg PO DAILY [facility] Last Admin: 03/27/18 11:00 Dose: 40 mg Azathioprine (Imuran -) 50 mg PO BID [facility] Last Admin: 03/27/18 10:57 Dose: 50 mg Cyanocobalamin (Vitamin B12 -) 1,000 mcg PO DAILY [facility] Last Admin: 03/27/18 10:57 Dose: 1,000 mcg Enoxaparin Sodium (Lovenox -) 40 mg SQ DAILY [facility] Last Admin: 03/27/18 10:58 Dose: 40 mg Sodium Chloride (Normal Saline -) 1,000 mls @ 75 mls/hr IV ASDIR [facility] Last Admin: 03/26/18 06:19 Dose: Not Given Ertapenem 1 gm/ Sodium (Chloride) 50 mls @ 50 mls/hr IVPB DAILY [facility]; Protocol Last Admin: 03/27/18 10:58 Dose: 50 mls/hr Losartan Potassium (Cozaar -) 25 mg PO DAILY [facility] Last Admin: 03/27/18 10:56 Dose: 25 mg Metoprolol Succinate (Toprol Xl -) 25 mg PO DAILY [facility] Last Admin: 03/27/18 10:56 Dose: 25 mg Multivitamins/Minerals/Vitamin C (Tab-A-Vit -) 1 tab PO DAILY [facility] Last Admin: 03/27/18 10:57 Dose: 1 tab Non-Formulary Medication (Mesalamine [Mesalamine]) 1.2 gm PO BID [facility] - Objective Vital Signs: Vital Signs Temperature 99.3 F 03/27/18 06:51 Pulse Rate 89 03/27/18 06:51 Respiratory Rate 20 03/27/18 06:51 Blood Pressure 148/74 03/27/18 06:51 O2 Sat by Pulse Oximetry (%) 95 03/25/18 21:00 Constitutional: Yes: No Distress Eyes: Yes: Conjunctiva Clear Cardiovascular: Yes: Regular Rate and Rhythm, S1, S2 Respiratory: Yes: CTA Bilaterally Gastrointestinal: Yes: Normal Bowel Sounds, Soft, Other (+ ileal conduit) Edema: No Labs: CBC, BMP 03/25/18 06:30 03/25/18 06:30 INR, PTT INR 1.30 (0.83-1.09) H 03/23/18 22:12 Assessment/Plan UTI/ possible sepsis secondary to UTI Toxic metabolic encephalopathy Hx ESBL ? viral illness ( fever/ leukopenia/ thrombocytopenia ) Await repeat c/s Continue ertapenem may need "FUO" w/u `
--- NOTE | 2018-03-27 14:10 | PN ---
Progress Note, Physician Chief Complaint: AWAKE ALERT NAD - Current Medication List Current Medications: Active Medications Acetaminophen (Tylenol -) 650 mg PO Q6H PRN PRN Reason: FEVER Last Admin: 03/26/18 15:00 Dose: 650 mg Aspirin (Ecotrin -) 325 mg PO DAILY [facility] Last Admin: 03/27/18 10:57 Dose: 325 mg Atorvastatin Calcium (Lipitor -) 40 mg PO DAILY [facility] Last Admin: 03/27/18 11:00 Dose: 40 mg Azathioprine (Imuran -) 50 mg PO BID [facility] Last Admin: 03/27/18 10:57 Dose: 50 mg Cyanocobalamin (Vitamin B12 -) 1,000 mcg PO DAILY [facility] Last Admin: 03/27/18 10:57 Dose: 1,000 mcg Enoxaparin Sodium (Lovenox -) 40 mg SQ DAILY [facility] Last Admin: 03/27/18 10:58 Dose: 40 mg Sodium Chloride (Normal Saline -) 1,000 mls @ 75 mls/hr IV ASDIR [facility] Last Admin: 03/26/18 06:19 Dose: Not Given Ertapenem 1 gm/ Sodium (Chloride) 50 mls @ 50 mls/hr IVPB DAILY [facility]; Protocol Last Admin: 03/27/18 10:58 Dose: 50 mls/hr Losartan Potassium (Cozaar -) 25 mg PO DAILY [facility] Last Admin: 03/27/18 10:56 Dose: 25 mg Metoprolol Succinate (Toprol Xl -) 25 mg PO DAILY [facility] Last Admin: 03/27/18 10:56 Dose: 25 mg Multivitamins/Minerals/Vitamin C (Tab-A-Vit -) 1 tab PO DAILY [facility] Last Admin: 03/27/18 10:57 Dose: 1 tab Non-Formulary Medication (Mesalamine [Mesalamine]) 1.2 gm PO BID [facility] - Objective Vital Signs: Vital Signs Temperature 99.3 F 03/27/18 06:51 Pulse Rate 89 03/27/18 06:51 Respiratory Rate 20 03/27/18 06:51 Blood Pressure 148/74 03/27/18 06:51 O2 Sat by Pulse Oximetry (%) 95 03/25/18 21:00 Constitutional: Yes: No Distress Eyes: Yes: WNL HENT: Yes: WNL Neck: Yes: WNL Cardiovascular: Yes: WNL Respiratory: Yes: WNL Gastrointestinal: Yes: WNL Genitourinary: Yes: Other (ILEOCONDUIT) Musculoskeletal: Yes: Muscle Weakness Extremities: Yes: WNL Edema: No Peripheral Pulses WNL: Yes Integumentary: Yes: WNL Wound/Incision: Yes: Clean/Dry Neurological: Yes: Unsteady Gait ...Motor Strength: LLE, RLE Psychiatric: Yes: WNL Labs: CBC, BMP 03/25/18 06:30 03/25/18 06:30 INR, PTT INR 1.30 (0.83-1.09) H 03/23/18 22:12 Problem List - Problems (1) HTN (hypertension) Code(s): I10 - ESSENTIAL (PRIMARY) HYPERTENSION Qualifiers: Hypertension type: unspecified Qualified Code(s): I10 - Essential (primary ) hypertension (2) UTI (urinary tract infection) Code(s): N39.0 - URINARY TRACT INFECTION, SITE NOT SPECIFIED Qualifiers: Urinary tract infection type: site unspecified Hematuria presence: with hematuria Qualified Code(s): N39.0 - Urinary tract infection, site not specified; R31.9 - Hematuria, unspecified (3) Ileal conduit stomal stenosis Code(s): T85.858A - STENOSIS DUE TO OTHER INTERNAL PROSTH DEV/GRFT, INIT (4) Sepsis Code(s): A41.9 - SEPSIS, UNSPECIFIED ORGANISM Qualifiers: Sepsis type: sepsis due to unspecified organism Qualified Code(s): A41.9 - Sepsis, unspecified organism (5) Toxic metabolic encephalopathy Code(s): G92 - TOXIC ENCEPHALOPATHY (6) Unsteady gait Code(s): R26.81 - UNSTEADINESS ON FEET Assessment/Plan IV ABX PER ID MAY NEED DEPUTY BRAND INSPECTOR ABX TYLENOL PRN FALL RISKS NEURO/CARDIOLOGY EVAL IVF DVT PROPHYLAXIS
[2018-03-27] MEDS: SODIUM CHLORIDE 1,000 ML IV SCH (18:44)
[2018-03-28] MEDS ORDERED: PT OWN MED DRAWER 7, Y5N ONE ×2 (09:26→21:27)
--- NOTE | 2018-03-28 09:35 | PN ---
Progress Note, Physician - Current Medication List Current Medications: Active Medications Acetaminophen (Tylenol -) 650 mg PO Q6H PRN PRN Reason: FEVER Last Admin: 03/26/18 15:00 Dose: 650 mg Aspirin (Ecotrin -) 325 mg PO DAILY [facility] Last Admin: 03/27/18 10:57 Dose: 325 mg Atorvastatin Calcium (Lipitor -) 40 mg PO DAILY [facility] Last Admin: 03/27/18 11:00 Dose: 40 mg Azathioprine (Imuran -) 50 mg PO BID [facility] Last Admin: 03/27/18 22:02 Dose: 50 mg Cyanocobalamin (Vitamin B12 -) 1,000 mcg PO DAILY [facility] Last Admin: 03/27/18 10:57 Dose: 1,000 mcg Enoxaparin Sodium (Lovenox -) 40 mg SQ DAILY [facility] Last Admin: 03/27/18 10:58 Dose: 40 mg Sodium Chloride (Normal Saline -) 1,000 mls @ 75 mls/hr IV ASDIR [facility] Last Admin: 03/27/18 18:44 Dose: 75 mls/hr Ertapenem 1 gm/ Sodium (Chloride) 50 mls @ 50 mls/hr IVPB DAILY [facility]; Protocol Last Admin: 03/27/18 10:58 Dose: 50 mls/hr Losartan Potassium (Cozaar -) 25 mg PO DAILY [facility] Last Admin: 03/27/18 10:56 Dose: 25 mg Metoprolol Succinate (Toprol Xl -) 25 mg PO DAILY [facility] Last Admin: 03/27/18 10:56 Dose: 25 mg Multivitamins/Minerals/Vitamin C (Tab-A-Vit -) 1 tab PO DAILY [facility] Last Admin: 03/27/18 10:57 Dose: 1 tab Non-Formulary Medication (Mesalamine [Mesalamine]) 1.2 gm PO BID [facility] - Objective Vital Signs: Vital Signs Temperature 99 F 03/28/18 06:40 Pulse Rate 75 03/28/18 06:40 Respiratory Rate 20 03/28/18 06:40 Blood Pressure 119/62 03/28/18 06:40 O2 Sat by Pulse Oximetry (%) 95 03/27/18 21:00 Cardiovascular: Yes: S1, S2 Respiratory: Yes: Regular, CTA Bilaterally Gastrointestinal: Yes: Normal Bowel Sounds, Soft Labs: CBC, BMP 03/25/18 06:30 03/25/18 06:30 INR, PTT INR 1.30 (0.83-1.09) H 03/23/18 22:12 Assessment/Plan Problems (1) UTI (urinary tract infection) Assessment/Plan: Microbiology 03/23/18 22:30 Urine - Urine Clean Catch Urine Culture - Preliminary Escherichia Coli [employer]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 03/26/18 17:30 Blood - Peripheral Venous Blood Culture - Preliminary NO GROWTH OBTAINED AFTER 24 HOURS, INCUBATION TO CONTINUE FOR 4 DAYS. 03/24/18 13:35 Blood - Peripheral Venous Blood Culture - Preliminary NO GROWTH OBTAINED AFTER 72 HOURS, INCUBATION TO CONTINUE FOR 2 DAYS. 03/24/18 13:30 Blood - Peripheral Venous Blood Culture - Preliminary NO GROWTH OBTAINED AFTER 72 HOURS, INCUBATION TO CONTINUE FOR 2 DAYS. 03/26/18 18:00 Nasopharyngeal Swab Influenza Types A,B Antigen - Final 03/26/18 18:00 Nasopharyngeal Swab - Final iv abx ID eval; UA cloudy 3+ LE and 320 wbc Code(s): N39.0 - URINARY TRACT INFECTION, SITE NOT SPECIFIED Qualifiers: Urinary tract infection type: site unspecified Hematuria presence: with hematuria Qualified Code(s): N39.0 - Urinary tract infection, site not specified; R31.9 - Hematuria, unspecified (2) HLD (hyperlipidemia) Assessment/Plan: lipitor Code(s): E78.5 - HYPERLIPIDEMIA, UNSPECIFIED Qualifiers: Hyperlipidemia type: unspecified Qualified Code(s): E78.5 - Hyperlipidemia , unspecified (3) HTN (hypertension) Assessment/Plan: jorge montoyarol xl Code(s): I10 - ESSENTIAL (PRIMARY) HYPERTENSION Qualifiers: Hypertension type: unspecified Qualified Code(s): I10 - Essential (primary ) hypertension
[2018-03-28] MEDS: ERTAPENEM SODIUM 1 GM in SODIUM CHLORIDE 50 ML IVPB SCH (09:39)
[2018-03-28] MEDS: SODIUM CHLORIDE 1,000 ML IV SCH (09:39)
[2018-03-28] MEDS: ASPIRIN 325 MG ENTERIC COATED TABLET (FP) PO SCH (10:06)
[2018-03-28] MEDS: metoPROLOL SUCCINATE 25 MG TAB.SR.24H (FP) PO SCH (10:06)
[2018-03-28] MEDS: ENOXAPARIN NA (PORCINE) 40 MG/0.4 ML DISP.SYRIN SQ SCH (10:06)
[2018-03-28] MEDS: ATORVASTATIN CA 40 MG TABLET (FP) PO SCH (10:06)
[2018-03-28] MEDS: LOSARTAN POTASSIUM 25 MG TABLET PO SCH (10:06)
[2018-03-28] MEDS: CYANOCOBALAMIN 1,000 MCG TABLET (FP) PO SCH (10:06)
[2018-03-28] MEDS: MULTIVITAMINS (DAILY MVI) TABLET (FP) PO SCH (10:06)
[2018-03-28] MEDS: azaTHIOprine 50 MG TABLET PO SCH ×2 (10:07→22:25)
--- NOTE | 2018-03-28 12:24 | PN ---
Progress Note, Physician History of Present Illness: OOB in chair Awake, alert Conversant No complaints offerred Temps down Afebrile Repeat BC no growth Leukopenic Flu screen negative - Current Medication List Current Medications: Active Medications Acetaminophen (Tylenol -) 650 mg PO Q6H PRN PRN Reason: FEVER Last Admin: 03/26/18 15:00 Dose: 650 mg Aspirin (Ecotrin -) 325 mg PO DAILY [facility] Last Admin: 03/28/18 10:06 Dose: 325 mg Atorvastatin Calcium (Lipitor -) 40 mg PO DAILY [facility] Last Admin: 03/28/18 10:06 Dose: 40 mg Azathioprine (Imuran -) 50 mg PO BID [facility] Last Admin: 03/28/18 10:07 Dose: 50 mg Cyanocobalamin (Vitamin B12 -) 1,000 mcg PO DAILY [facility] Last Admin: 03/28/18 10:06 Dose: 1,000 mcg Enoxaparin Sodium (Lovenox -) 40 mg SQ DAILY [facility] Last Admin: 03/28/18 10:06 Dose: 40 mg Sodium Chloride (Normal Saline -) 1,000 mls @ 75 mls/hr IV [facility]IR [facility] Last Admin: 03/28/18 09:39 Dose: 75 mls/hr Ertapenem 1 gm/ Sodium (Chloride) 50 mls @ 50 mls/hr IVPB DAILY [facility]; Protocol Last Admin: 03/28/18 09:39 Dose: 50 mls/hr Losartan Potassium (Cozaar -) 25 mg PO DAILY [facility] Last Admin: 03/28/18 10:06 Dose: 25 mg Metoprolol Succinate (Toprol Xl -) 25 mg PO DAILY [facility] Last Admin: 03/28/18 10:06 Dose: 25 mg Multivitamins/Minerals/Vitamin C (Tab-A-Vit -) 1 tab PO DAILY [facility] Last Admin: 03/28/18 10:06 Dose: 1 tab Non-Formulary Medication (Mesalamine [Mesalamine]) 1.2 gm PO BID [facility] - Objective Vital Signs: Vital Signs Temperature 99 F 03/28/18 06:40 Pulse Rate 75 03/28/18 06:40 Respiratory Rate 20 03/28/18 06:40 Blood Pressure 119/62 03/28/18 06:40 O2 Sat by Pulse Oximetry (%) 95 03/27/18 21:00 Constitutional: Yes: No Distress Eyes: Yes: Conjunctiva Clear Cardiovascular: Yes: Regular Rate and Rhythm, S1, S2 Respiratory: Yes: CTA Bilaterally Gastrointestinal: Yes: Normal Bowel Sounds, Soft. No: Tenderness Edema: No Labs: CBC, BMP 03/25/18 06:30 03/25/18 06:30 INR, PTT INR 1.30 (0.83-1.09) H 03/23/18 22:12 Assessment/Plan UTI/ possible sepsis secondary to UTI Toxic metabolic encephalopathy improved Hx ESBL ? viral illness ( fever/ leukopenia/ thrombocytopenia ) Await repeat c/s Continue ertapenem may need "FUO" w/u `
--- NOTE | 2018-03-29 08:34 | PN ---
Progress Note, Physician - Current Medication List Current Medications: Active Medications Acetaminophen (Tylenol -) 650 mg PO Q6H PRN PRN Reason: FEVER Last Admin: 03/26/18 15:00 Dose: 650 mg Aspirin (Ecotrin -) 325 mg PO DAILY [facility] Last Admin: 03/28/18 10:06 Dose: 325 mg Atorvastatin Calcium (Lipitor -) 40 mg PO DAILY [facility] Last Admin: 03/28/18 10:06 Dose: 40 mg Azathioprine (Imuran -) 50 mg PO BID [facility] Last Admin: 03/28/18 22:25 Dose: 50 mg Cyanocobalamin (Vitamin B12 -) 1,000 mcg PO DAILY [facility] Last Admin: 03/28/18 10:06 Dose: 1,000 mcg Enoxaparin Sodium (Lovenox -) 40 mg SQ DAILY [facility] Last Admin: 03/28/18 10:06 Dose: 40 mg Sodium Chloride (Normal Saline -) 1,000 mls @ 75 mls/hr IV ASDIR [facility] Last Admin: 03/28/18 09:39 Dose: 75 mls/hr Ertapenem 1 gm/ Sodium (Chloride) 50 mls @ 50 mls/hr IVPB DAILY [facility]; Protocol Last Admin: 03/28/18 09:39 Dose: 50 mls/hr Losartan Potassium (Cozaar -) 25 mg PO DAILY [facility] Last Admin: 03/28/18 10:06 Dose: 25 mg Metoprolol Succinate (Toprol Xl -) 25 mg PO DAILY [facility] Last Admin: 03/28/18 10:06 Dose: 25 mg Multivitamins/Minerals/Vitamin C (Tab-A-Vit -) 1 tab PO DAILY [facility] Last Admin: 03/28/18 10:06 Dose: 1 tab Non-Formulary Medication (Mesalamine [Mesalamine]) 1.2 gm PO BID [facility] - Objective Vital Signs: Vital Signs Temperature 98.3 F 03/29/18 07:08 Pulse Rate 74 03/29/18 07:08 Respiratory Rate 20 03/29/18 07:08 Blood Pressure 142/68 03/29/18 07:08 O2 Sat by Pulse Oximetry (%) 95 03/28/18 21:00 Cardiovascular: Yes: S1, S2 Respiratory: Yes: Regular, CTA Bilaterally Gastrointestinal: Yes: Normal Bowel Sounds, Soft Labs: CBC, BMP 03/25/18 06:30 INR, PTT INR 1.30 (0.83-1.09) H 03/23/18 22:12 Assessment/Plan Problems (1) UTI (urinary tract infection) Assessment/Plan: Microbiology 03/23/18 22:30 Urine - Urine Clean Catch Urine Culture - Preliminary Escherichia Coli [facility] [employer] Enterococcus Faecalis 03/26/18 17:00 Blood - Peripheral Venous Blood Culture - Preliminary NO GROWTH OBTAINED AFTER 24 HOURS, INCUBATION TO CONTINUE FOR 4 DAYS. 03/26/18 17:30 Blood - Peripheral Venous Blood Culture - Preliminary NO GROWTH OBTAINED AFTER 24 HOURS, INCUBATION TO CONTINUE FOR 4 DAYS. 03/24/18 13:35 Blood - Peripheral Venous Blood Culture - Preliminary NO GROWTH OBTAINED AFTER 72 HOURS, INCUBATION TO CONTINUE FOR 2 DAYS. 03/24/18 13:30 Blood - Peripheral Venous Blood Culture - Preliminary NO GROWTH OBTAINED AFTER 72 HOURS, INCUBATION TO CONTINUE FOR 2 DAYS. 03/26/18 18:00 Nasopharyngeal Swab Influenza Types A,B Antigen - Final 03/26/18 18:00 Nasopharyngeal Swab - Final iv abx ID eval; UA cloudy 3+ LE and 320 wbc Code(s): N39.0 - URINARY TRACT INFECTION, SITE NOT SPECIFIED Qualifiers: Urinary tract infection type: site unspecified Hematuria presence: with hematuria Qualified Code(s): N39.0 - Urinary tract infection, site not specified; R31.9 - Hematuria, unspecified (2) HLD (hyperlipidemia) Assessment/Plan: lipitor Code(s): E78.5 - HYPERLIPIDEMIA, UNSPECIFIED Qualifiers: Hyperlipidemia type: unspecified Qualified Code(s): E78.5 - Hyperlipidemia , unspecified (3) HTN (hypertension) Assessment/Plan: jorge gaffney xl Code(s): I10 - ESSENTIAL (PRIMARY) HYPERTENSION Qualifiers: Hypertension type: unspecified Qualified Code(s): I10 - Essential (primary ) hypertension
[2018-03-29 08:39] LABS: BASO % 0.5 % (0-2.0); EOS % 1.9 % (0-4.5); HEMATOCRIT 28.5 % (35.4-49); HEMOGLOBIN 9.4 GM/dL (11.7-16.9); LYMPH % 12.9 % (8-40); MCH 29.3 pg (25.7-33.7); MCHC 32.8 g/dl (32.0-35.9); MEAN CELL VOLUME 89.3 fl (80-96); MEAN PLT VOLUME 8.9 fl (7.5-11.1); MONO % 9.7 % (3.8-10.2); PLATELET COUNT 116 K/MM3 (134-434); RBC 3.19 M/mm3 (4.00-5.60); RDW 16.8 % (11.9-15.9); WHITE BLOOD COUNT 2.7 K/mm3 (4.0-10.0)
[2018-03-29] MEDS: ENOXAPARIN NA (PORCINE) 40 MG/0.4 ML DISP.SYRIN SQ SCH (10:38)
[2018-03-29] MEDS: MULTIVITAMINS (DAILY MVI) TABLET (FP) PO SCH (10:39)
[2018-03-29] MEDS: LOSARTAN POTASSIUM 25 MG TABLET PO SCH (10:39)
[2018-03-29] MEDS: azaTHIOprine 50 MG TABLET PO SCH ×2 (10:39→23:55)
[2018-03-29] MEDS: ASPIRIN 325 MG ENTERIC COATED TABLET (FP) PO SCH (10:39)
[2018-03-29] MEDS: CYANOCOBALAMIN 1,000 MCG TABLET (FP) PO SCH (10:39)
[2018-03-29] MEDS: metoPROLOL SUCCINATE 25 MG TAB.SR.24H (FP) PO SCH (10:39)
[2018-03-29] MEDS: ATORVASTATIN CA 40 MG TABLET (FP) PO SCH (10:39)
[2018-03-29] MEDS: SODIUM CHLORIDE 1,000 ML IV SCH (10:40)
[2018-03-29] MEDS: ERTAPENEM SODIUM 1 GM in SODIUM CHLORIDE 50 ML IVPB SCH (10:41)
[2018-03-29] MEDS ORDERED: PT OWN MED DRAWER 7, Y5N ONE ×2 (12:00→22:33)
[2018-03-30] MEDS ORDERED: PT OWN MED DRAWER 7, Y5N ONE ×2 (11:04→20:00)
[2018-03-30] MEDS: ENOXAPARIN NA (PORCINE) 40 MG/0.4 ML DISP.SYRIN SQ SCH (11:17)
[2018-03-30] MEDS: ERTAPENEM SODIUM 1 GM in SODIUM CHLORIDE 50 ML IVPB SCH (11:17)
[2018-03-30] MEDS: ASPIRIN 325 MG ENTERIC COATED TABLET (FP) PO SCH (11:18)
[2018-03-30] MEDS: LOSARTAN POTASSIUM 25 MG TABLET PO SCH (11:18)
[2018-03-30] MEDS: metoPROLOL SUCCINATE 25 MG TAB.SR.24H (FP) PO SCH (11:18)
[2018-03-30] MEDS: MULTIVITAMINS (DAILY MVI) TABLET (FP) PO SCH (11:18)
[2018-03-30] MEDS: ATORVASTATIN CA 40 MG TABLET (FP) PO SCH (11:18)
[2018-03-30] MEDS: CYANOCOBALAMIN 1,000 MCG TABLET (FP) PO SCH (11:18)
[2018-03-30] MEDS: azaTHIOprine 50 MG TABLET PO SCH ×2 (11:18→22:47)
[2018-03-30] MEDS: SODIUM CHLORIDE 1,000 ML IV SCH ×2 (11:20→18:17)
[2018-03-30] MEDS: PATIENT'S OWN MEDICATION (NON-FORMULARY) (Mesalamine [Mesalamine] 1.2 GM) PO SCH ×4 (14:50→14:53)
[2018-03-30] MEDS: MESALAMINE 800 MG TABLET.DR PO SCH ×2 (16:01→21:34)
[2018-03-30] MEDS ORDERED: IRON SUCROSE INJECTION 200 MG in SODIUM CHLORIDE 90 ML IVPB ONE (16:58)
--- NOTE | 2018-03-30 17:02 | PN ---
Progress Note, Physician Chief Complaint: EVENTS AND NOTES OVER WEEKEND REVIEWED PATIENT FEELS WEAK COUGH, NON-PRODUCTIVE - Current Medication List Current Medications: Active Medications Acetaminophen (Tylenol -) 650 mg PO Q6H PRN PRN Reason: FEVER Last Admin: 03/26/18 15:00 Dose: 650 mg Albuterol Sulfate (Ventolin 0.083% Nebulizer Soln -) 1 amp NEB Q6H PRN PRN Reason: SHORT OF BREATH/WHEEZING Aspirin (Ecotrin -) 325 mg PO DAILY [facility] Last Admin: 03/30/18 11:18 Dose: 325 mg Atorvastatin Calcium (Lipitor -) 40 mg PO DAILY [facility] Last Admin: 03/30/18 11:18 Dose: 40 mg Azathioprine (Imuran -) 50 mg PO BID [facility] Last Admin: 03/30/18 11:18 Dose: 50 mg Cyanocobalamin (Vitamin B12 -) 1,000 mcg PO DAILY [facility] Last Admin: 03/30/18 11:18 Dose: 1,000 mcg Enoxaparin Sodium (Lovenox -) 40 mg SQ DAILY [facility] Sodium Chloride (Normal Saline -) 1,000 mls @ 75 mls/hr IV ASDIR [facility] Last Admin: 03/30/18 11:20 Dose: 75 mls/hr Ertapenem 1 gm/ Sodium (Chloride) 50 mls @ 50 mls/hr IVPB DAILY [facility]; Protocol Last Admin: 03/30/18 11:17 Dose: 50 mls/hr Iron Sucrose 200 mg/ Sodium (Chloride) 100 mls @ 100 mls/hr IVPB ONCE ONE Stop: 03/30/18 17:57 Losartan Potassium (Cozaar -) 25 mg PO DAILY [facility] Last Admin: 03/30/18 11:18 Dose: 25 mg Mesalamine (Asacol Hd -) 800 mg PO TID [facility] Last Admin: 03/30/18 16:01 Dose: 800 mg Metoprolol Succinate (Toprol Xl -) 25 mg PO DAILY [facility] Last Admin: 03/30/18 11:18 Dose: 25 mg Multivitamins/Minerals/Vitamin C (Tab-A-Vit -) 1 tab PO DAILY [facility] Last Admin: 03/30/18 11:18 Dose: 1 tab - Objective Vital Signs: Vital Signs Temperature 98.2 F 03/30/18 15:36 Pulse Rate 81 03/30/18 15:36 Respiratory Rate 20 03/30/18 15:36 Blood Pressure 134/49 L 03/30/18 15:36 O2 Sat by Pulse Oximetry (%) 88 L 03/30/18 09:00 Constitutional: Yes: Mild Distress Eyes: Yes: WNL HENT: Yes: WNL Neck: Yes: WNL Cardiovascular: Yes: Regular Rate and Rhythm Respiratory: Yes: Cough, On Nasal O2, Poor Air Entry Gastrointestinal: Yes: WNL Genitourinary: Yes: Other (IL/CONDUIT) Musculoskeletal: Yes: Muscle Weakness Extremities: Yes: Other Edema: No Peripheral Pulses WNL: Yes Integumentary: Yes: WNL Wound/Incision: Yes: Clean/Dry Neurological: Yes: Weakness ...Motor Strength: LLE, RLE Psychiatric: Yes: Other Labs: CBC, BMP 03/29/18 07:30 03/25/18 06:30 INR, PTT INR 1.30 (0.83-1.09) H 03/23/18 22:12 Problem List - Problems (1) HTN (hypertension) Code(s): I10 - ESSENTIAL (PRIMARY) HYPERTENSION Qualifiers: Hypertension type: unspecified Qualified Code(s): I10 - Essential (primary ) hypertension (2) UTI (urinary tract infection) Code(s): N39.0 - URINARY TRACT INFECTION, SITE NOT SPECIFIED Qualifiers: Urinary tract infection type: site unspecified Hematuria presence: with hematuria Qualified Code(s): N39.0 - Urinary tract infection, site not specified; R31.9 - Hematuria, unspecified (3) Ileal conduit stomal stenosis Code(s): T85.858A - STENOSIS DUE TO OTHER INTERNAL PROSTH DEV/GRFT, INIT (4) Sepsis Code(s): A41.9 - SEPSIS, UNSPECIFIED ORGANISM Qualifiers: Sepsis type: sepsis due to unspecified organism Qualified Code(s): A41.9 - Sepsis, unspecified organism (5) Toxic metabolic encephalopathy Code(s): G92 - TOXIC ENCEPHALOPATHY (6) Unsteady gait Code(s): R26.81 - UNSTEADINESS ON FEET Assessment/Plan CXR STAT 02 SUPPORT NC 2L NEBS INCENTIVE SPIROMETRY OOB/CHAIR IV ABX PER ID MAY NEED PENITENTIARY ABX TYLENOL PRN FALL RISKS NEURO/CARDIOLOGY EVAL IVF DVT PROPHYLAXIS
[2018-03-30] MEDS: ALBUTEROL SO4 0.083% IH SOL 2.5 MG/3 ML VIAL.NEB. NEB PRN (19:35)
[2018-03-30] MEDS: ACETAMINOPHEN 325 MG TABLET (FP) PO PRN (22:47)
[2018-03-31] MEDS: MESALAMINE 800 MG TABLET.DR PO SCH ×3 (05:44→21:12)
[2018-03-31 07:07] LABS: HEMATOCRIT 29.3 % (35.4-49); HEMOGLOBIN 9.6 GM/dL (11.7-16.9); MCH 29.7 pg (25.7-33.7); MCHC 32.7 g/dl (32.0-35.9); MEAN PLT VOLUME 8.5 fl (7.5-11.1); PLATELET COUNT 120 K/MM3 (134-434); RBC 3.22 M/mm3 (4.00-5.60); RDW 17.3 % (11.9-15.9); WHITE BLOOD COUNT 2.8 K/mm3 (4.0-10.0)
[2018-03-31 07:41] LABS: ANION GAP 4 MMOL/L (8-16); BLOOD UREA NITROGEN 17 mg/dL (7-18); CALCIUM 8.1 mg/dL (8.5-10.1); CHLORIDE 112 mmol/L (98-107); CO2 29 mmol/L (21-32); CREATININE 0.7 mg/dL (0.55-1.3); GLUCOSE,RANDOM 111 mg/dL (74-106); SODIUM 145 mmol/L (136-145)
--- NOTE | 2018-03-31 08:45 | PN ---
Progress Note, Physician - Current Medication List Current Medications: Active Medications Acetaminophen (Tylenol -) 650 mg PO Q6H PRN PRN Reason: FEVER Last Admin: 03/30/18 22:47 Dose: 650 mg Albuterol Sulfate (Ventolin 0.083% Nebulizer Soln -) 1 amp NEB Q6H PRN PRN Reason: SHORT OF BREATH/WHEEZING Last Admin: 03/30/18 19:35 Dose: 1 amp Aspirin (Ecotrin -) 325 mg PO DAILY [facility] Last Admin: 03/30/18 11:18 Dose: 325 mg Atorvastatin Calcium (Lipitor -) 40 mg PO DAILY [facility] Last Admin: 03/30/18 11:18 Dose: 40 mg Azathioprine (Imuran -) 50 mg PO BID [facility] Last Admin: 03/30/18 22:47 Dose: 50 mg Cyanocobalamin (Vitamin B12 -) 1,000 mcg PO DAILY [facility] Last Admin: 03/30/18 11:18 Dose: 1,000 mcg Enoxaparin Sodium (Lovenox -) 40 mg SQ DAILY [facility] Sodium Chloride (Normal Saline -) 1,000 mls @ 75 mls/hr IV ASDIR [facility] Last Admin: 03/30/18 18:17 Dose: 75 mls/hr Ertapenem 1 gm/ Sodium (Chloride) 50 mls @ 50 mls/hr IVPB DAILY [facility]; Protocol Last Admin: 03/30/18 11:17 Dose: 50 mls/hr Losartan Potassium (Cozaar -) 25 mg PO DAILY [facility] Last Admin: 03/30/18 11:18 Dose: 25 mg Mesalamine (Asacol Hd -) 800 mg PO TID [facility] Last Admin: 03/31/18 05:44 Dose: Not Given Metoprolol Succinate (Toprol Xl -) 25 mg PO DAILY [facility] Last Admin: 03/30/18 11:18 Dose: 25 mg Multivitamins/Minerals/Vitamin C (Tab-A-Vit -) 1 tab PO DAILY [facility] Last Admin: 03/30/18 11:18 Dose: 1 tab - Objective Vital Signs: Vital Signs Temperature 97.8 F 03/31/18 06:40 Pulse Rate 72 03/31/18 06:40 Respiratory Rate 20 03/31/18 06:40 Blood Pressure 138/69 03/31/18 06:40 O2 Sat by Pulse Oximetry (%) 88 L 03/30/18 21:00 Labs: CBC, BMP 03/31/18 06:30 03/31/18 06:30 INR, PTT INR 1.30 (0.83-1.09) H 03/23/18 22:12 Problem List - Problems (1) HTN (hypertension) Code(s): I10 - ESSENTIAL (PRIMARY) HYPERTENSION Qualifiers: Hypertension type: unspecified Qualified Code(s): I10 - Essential (primary ) hypertension (2) UTI (urinary tract infection) Code(s): N39.0 - URINARY TRACT INFECTION, SITE NOT SPECIFIED Qualifiers: Urinary tract infection type: site unspecified Hematuria presence: with hematuria Qualified Code(s): N39.0 - Urinary tract infection, site not specified; R31.9 - Hematuria, unspecified (3) Ileal conduit stomal stenosis Code(s): T85.858A - STENOSIS DUE TO OTHER INTERNAL PROSTH DEV/GRFT, INIT (4) Sepsis Code(s): A41.9 - SEPSIS, UNSPECIFIED ORGANISM Qualifiers: Sepsis type: sepsis due to unspecified organism Qualified Code(s): A41.9 - Sepsis, unspecified organism (5) Toxic metabolic encephalopathy Code(s): G92 - TOXIC ENCEPHALOPATHY (6) Unsteady gait Code(s): R26.81 - UNSTEADINESS ON FEET
[2018-03-31] MEDS ORDERED: SODIUM CHLORIDE NASAL SPRAY 44 ML BOTTLE NS PRN (08:55)
--- NOTE | 2018-03-31 09:23 | PN ---
Progress Note, Physician History of Present Illness: OOB in chair Awake, alert Conversant No complaints offerred Denies dyspnea/ cough Temps down Afebrile Repeat BC no growth Leukopenic Flu screen negative CXR shows increased markings L base Demies cough/chest pain/ dyspnea - Current Medication List Current Medications: Active Medications Acetaminophen (Tylenol -) 650 mg PO Q6H PRN PRN Reason: FEVER Last Admin: 03/30/18 22:47 Dose: 650 mg Albuterol Sulfate (Ventolin 0.083% Nebulizer Soln -) 1 amp NEB Q6H PRN PRN Reason: SHORT OF BREATH/WHEEZING Last Admin: 03/30/18 19:35 Dose: 1 amp Aspirin (Ecotrin -) 325 mg PO DAILY [facility] Last Admin: 03/30/18 11:18 Dose: 325 mg Atorvastatin Calcium (Lipitor -) 40 mg PO DAILY [facility] Last Admin: 03/30/18 11:18 Dose: 40 mg Azathioprine (Imuran -) 50 mg PO BID [facility] Last Admin: 03/30/18 22:47 Dose: 50 mg Cyanocobalamin (Vitamin B12 -) 1,000 mcg PO DAILY [facility] Last Admin: 03/30/18 11:18 Dose: 1,000 mcg Enoxaparin Sodium (Lovenox -) 40 mg SQ DAILY [facility] Fluticasone Propionate (Flonase -) 2 spray NS DAILY [facility] Sodium Chloride (Normal Saline -) 1,000 mls @ 75 mls/hr IV [facility] Last Admin: 03/30/18 18:17 Dose: 75 mls/hr Ertapenem 1 gm/ Sodium (Chloride) 50 mls @ 50 mls/hr IVPB DAILY [facility]; Protocol Last Admin: 03/30/18 11:17 Dose: 50 mls/hr Loratadine (Claritin -) 10 mg PO DAILY [facility] Losartan Potassium (Cozaar -) 25 mg PO DAILY [facility] Last Admin: 03/30/18 11:18 Dose: 25 mg Mesalamine (Asacol Hd -) 800 mg PO TID [facility] Last Admin: 03/31/18 05:44 Dose: Not Given Metoprolol Succinate (Toprol Xl -) 25 mg PO DAILY [facility] Last Admin: 03/30/18 11:18 Dose: 25 mg Multivitamins/Minerals/Vitamin C (Tab-A-Vit -) 1 tab PO DAILY [facility] Last Admin: 03/30/18 11:18 Dose: 1 tab Sodium Chloride ([place] -) 2 spray NS TID PRN PRN Reason: NASAL CONGESTION - Objective Vital Signs: Vital Signs Temperature 97.8 F 03/31/18 06:40 Pulse Rate 72 03/31/18 06:40 Respiratory Rate 20 03/31/18 06:40 Blood Pressure 138/69 03/31/18 06:40 O2 Sat by Pulse Oximetry (%) 88 L 03/30/18 21:00 Constitutional: Yes: No Distress Eyes: Yes: Conjunctiva Clear Cardiovascular: Yes: Regular Rate and Rhythm, S1, S2 Respiratory: Yes: CTA Bilaterally Gastrointestinal: Yes: Normal Bowel Sounds, Soft. No: Tenderness Genitourinary: Yes: Other (+ ileal conduit) Edema: No Labs: CBC, BMP 03/31/18 06:30 03/31/18 06:30 INR, PTT INR 1.30 (0.83-1.09) H 03/23/18 22:12 Assessment/Plan UTI/ possible sepsis secondary to UTI Toxic metabolic encephalopathy improved Hx ESBL ? viral illness ( fever/ leukopenia/ thrombocytopenia ) ? atelectasis L base Repeat c/s (-) Ertapenem day 8 D/C ertapenem Nitrofurantoin po x3d Incentive spirometry `
--- NOTE | 2018-03-31 09:52 | CON.PULM ---
Consult Consult Specialty:: PULM/CCM Referred by:: LINSEY Reason for Consultation:: Possible PNA - History of Present Illness Chief Complaint: Confusion History of Present Illness: 72 M, HTN, HPL, GERD, Ulcerative colitis, Bladder cancer, S/p Ileal conduit . Admitted via the ER due to confusion and possible UTI. He apparently had a similar episode in December. MRI of brain (02/15/18): atrophy, diffuse periventricular and subcortical microvascular changes including yordan lacunar infarcts. Called for an abnormal CXR: Appears to be basilar atelectasis Patient only reports an intermittent dry cough. No sputum production or hemoptysis. - History Source History Provided By: Patient Limitations to Obtaining History: No Limitations - Past Medical History [employer]: Yes: TIA Cardio/Vascular: Yes: HTN, Hyperlipdemia Gastrointestinal: Yes: Inflamatory Bowel Disease Renal/: Yes: BPH, Cancer (Prostate), UTI, Other (SEE ABOVE) Endocrine: Yes: Diabetes Mellitus - Past Surgical History Past Surgical History: Yes: Cataract Removal, Ileosotomy - Alcohol/Substance Use Hx Alcohol Use: No History of Substance Use: reports: None - Smoking History Smoking history: Never smoked Have you smoked in the past 12 months: No Aproximately how many cigarettes per day: 10 If you are a former smoker, when did you quit?: 1989 - Social History History of Recent Travel: No Home Medications - Allergies Allergies/Adverse Reactions: Allergies Allergy/AdvReac Type Severity Reaction Status Date / Time No Known Allergies Allergy Verified 03/23/18 20:19 - Home Medications Home Medications: Ambulatory Orders Cyanocobalamin [Vitamin B12 -] 1,000 mg PO DAILY 03/09/15 Multivitamins [Multivit (RH Formulary)] 1 tab PO DAILY 04/19/15 Calcium 250Mg/Vit-D 125 Units [Oscal 250 mg+D -] 2 combo PO DAILY #60 tablet Losartan Potassium [Cozaar -] 25 mg PO DAILY tablet 01/18/18 Metoprolol Succinate [Toprol XL -] 25 mg PO DAILY tab.sr.24h 01/18/18 Atorvastatin Ca [Lipitor] 40 mg PO DAILY 03/23/18 Azathioprine [Imuran -] 50 mg PO BID 03/23/18 Mesalamine 1.2 gm PO BID 03/23/18 Aspirin Coated [Ecotrin -] 325 mg PO DAILY 03/24/18 Review of Systems - Review of Systems Constitutional: reports: Lethargy, Malaise, Weakness. denies: Chills, Fever, Night Sweats, Unintentional Wgt. Loss Eyes: reports: No Symptoms HENT: reports: No Symptoms Neck: reports: No Symptoms Cardiovascular: denies: Chest Pain, Edema, Palpitations, Shortness of Breath Respiratory: reports: Cough. denies: Hemoptysis, Orthopnea, Snoring, SOB, SOB on Exertion, Wheezing Gastrointestinal: reports: No Symptoms Genitourinary: reports: No Symptoms Breasts: reports: No Symptoms Reported Musculoskeletal: reports: No Symptoms Integumentary: reports: No Symptoms Neurological: reports: Confusion Endocrine: reports: No Symptoms Hematology/Lymphatic: reports: No Symptoms Psychiatric: reports: No Symptoms Physical Exam Vital Sings: Vital Signs Temperature 97.8 F 03/31/18 06:40 Pulse Rate 72 03/31/18 06:40 Respiratory Rate 20 03/31/18 06:40 Blood Pressure 138/69 03/31/18 06:40 O2 Sat by Pulse Oximetry (%) 88 L 03/30/18 21:00 Constitutional: Yes: No Distress, Calm Eyes: Yes: Conjunctiva Clear, EOM Intact HENT: Yes: Atraumatic, Normocephalic Neck: Yes: Supple, Trachea Midline Cardiovascular: Yes: Regular Rate and Rhythm Respiratory: Yes: Cough. No: Accessory Muscle Use, Rales, Rhonchi, SOB, SOB on Exertion, Stridor, Tachypnea, Wheezes ...Inspection: Yes: WNL ...Clubbing: No Gastrointestinal: Yes: Normal Bowel Sounds, Soft Musculoskeletal: Yes: WNL Extremities: Yes: WNL Edema: No Peripheral Pulses WNL: Yes Integumentary: Yes: WNL Neurological: Yes: WNL, Alert, Oriented ...Motor Strength: WNL Psychiatric: Yes: WNL, Alert, Oriented Labs: CBC, BMP 03/31/18 06:30 03/31/18 06:30 Imaging - Results Chest X-ray: Report Reviewed, Image Reviewed Problem List - Problems (1) Atelectasis Code(s): J98.11 - ATELECTASIS (2) Colitis Code(s): K52.9 - NONINFECTIVE GASTROENTERITIS AND COLITIS, UNSPECIFIED (3) HLD (hyperlipidemia) Code(s): E78.5 - HYPERLIPIDEMIA, UNSPECIFIED Qualifiers: Hyperlipidemia type: unspecified Qualified Code(s): E78.5 - Hyperlipidemia , unspecified (4) HTN (hypertension) Code(s): I10 - ESSENTIAL (PRIMARY) HYPERTENSION Qualifiers: Hypertension type: unspecified Qualified Code(s): I10 - Essential (primary ) hypertension (5) UTI (urinary tract infection) Code(s): N39.0 - URINARY TRACT INFECTION, SITE NOT SPECIFIED Qualifiers: Urinary tract infection type: site unspecified Hematuria presence: with hematuria Qualified Code(s): N39.0 - Urinary tract infection, site not specified; R31.9 - Hematuria, unspecified (6) Diabetes Code(s): E11.9 - TYPE 2 DIABETES MELLITUS WITHOUT COMPLICATIONS (7) History of prostate cancer Code(s): Z85.46 - PERSONAL HISTORY OF MALIGNANT NEOPLASM OF PROSTATE (8) Inflammatory bowel disease Code(s): K63.89 - OTHER SPECIFIED DISEASES OF INTESTINE (9) Metabolic encephalopathy Code(s): G93.41 - METABOLIC ENCEPHALOPATHY Assessment/Plan Do not radiographically or clinically suspect PNA but atelectasis: Encourage Incentive Spirometry O2 as needed ABX per ID for UTI Fall precautions VTE prophylaxis BD TX PRN There is no Pulmonary contraindication for D/C planning Thank you. Dr Alas
[2018-03-31] MEDS: ATORVASTATIN CA 40 MG TABLET (FP) PO SCH (10:19)
[2018-03-31] MEDS: ENOXAPARIN NA (PORCINE) 40 MG/0.4 ML DISP.SYRIN SQ SCH (10:19)
[2018-03-31] MEDS: MULTIVITAMINS (DAILY MVI) TABLET (FP) PO SCH (10:19)
[2018-03-31] MEDS: ASPIRIN 325 MG ENTERIC COATED TABLET (FP) PO SCH (10:19)
[2018-03-31] MEDS: metoPROLOL SUCCINATE 25 MG TAB.SR.24H (FP) PO SCH (10:19)
[2018-03-31] MEDS: CYANOCOBALAMIN 1,000 MCG TABLET (FP) PO SCH (10:19)
[2018-03-31] MEDS: LORATADINE 10 MG TABLET PO SCH (10:19)
[2018-03-31] MEDS ORDERED: PT OWN MED DRAWER 7, Y5N ONE ×4 (10:23→21:08)
[2018-03-31] MEDS: LOSARTAN POTASSIUM 25 MG TABLET PO SCH (10:24)
[2018-03-31] MEDS: FLUTICASONE PROP 0.05% 16 GM NASAL SPRAY NS SCH (10:24)
[2018-03-31] MEDS: azaTHIOprine 50 MG TABLET PO SCH ×2 (10:24→21:13)
[2018-03-31] MEDS: ALBUTEROL SO4 0.083% IH SOL 2.5 MG/3 ML VIAL.NEB. NEB PRN ×2 (11:21→21:59)
--- NOTE | 2018-03-31 11:36 | PN ---
Progress Note (short form) - Note Progress Note: s: no cp palps dizzy sob o: Vital Signs Period Temp Pulse Resp BP Sys/Anderson Pulse Ox Last 24 Hr 97.8 F-98.7 F 72-81 20-20 132-138/49-73 88 Constitutional: Yes: No Distress, Calm Eyes: Yes: Conjunctiva Clear Neck: Yes: Supple Respiratory: Yes: Regular, CTA Bilaterally Gastrointestinal: Yes: Normal Bowel Sounds, Soft Cardiovascular: Yes: Regular Rate and Rhythm JVD: No Heart Sounds: Yes: S1, S2 Edema: No Psychiatric: Yes: Alert, Oriented no jaundice diaphoresis Current Medications Generic Name Dose Route Start Last Admin Trade Name Freq PRN Reason Stop Dose Admin Acetaminophen 650 mg 03/24/18 10:38 03/30/18 22:47 Tylenol - PO 650 mg Q6H PRN Administration FEVER Albuterol Sulfate 1 amp 03/30/18 14:16 03/31/18 11:21 Ventolin 0.083% Nebulizer Soln - NEB 1 amp Q6H PRN Administration SHORT OF BREATH/WHEEZING Aspirin 325 mg 03/24/18 10:00 03/31/18 10:19 Ecotrin - PO 325 mg DAILY [facility] Administration Atorvastatin Calcium 40 mg 03/24/18 10:00 03/31/18 10:19 Lipitor - PO 40 mg DAILY [facility] Administration Azathioprine 50 mg 03/24/18 10:00 03/31/18 10:24 Imuran - PO 50 mg BID [facility] Administration Cyanocobalamin 1,000 mcg 03/24/18 10:00 03/31/18 10:19 Vitamin B12 - PO 1,000 mcg DAILY [facility] Administration Enoxaparin Sodium 40 mg 03/31/18 10:00 03/31/18 10:19 Lovenox - SQ 40 mg DAILY [facility] Administration Fluticasone Propionate 2 spray 03/31/18 10:00 03/31/18 10:24 Flonase - NS 2 sprays DAILY [facility] Administration Sodium Chloride 1,000 mls @ 75 mls/hr 03/24/18 06:45 03/30/18 18:17 Normal Saline - IV 75 mls/hr ASDIR [facility] Administration Loratadine 10 mg 03/31/18 10:00 03/31/18 10:19 Claritin - PO 10 mg DAILY [facility] Administration Losartan Potassium 25 mg 03/24/18 10:00 03/31/18 10:24 Cozaar - PO 25 mg DAILY [facility] Administration Mesalamine 800 mg 03/30/18 14:15 03/31/18 05:44 Asacol Hd - PO Not Given TID [facility] Metoprolol Succinate 25 mg 03/24/18 10:00 03/31/18 10:19 Toprol Xl - PO 25 mg DAILY [facility] Administration Multivitamins/Minerals/Vitamin C 1 tab 03/24/18 10:00 03/31/18 10:19 Tab-A-Vit - PO 1 tab DAILY [facility] Administration Nitrofurantoin Macrocrystals 50 mg 03/31/18 12:00 Macrodantin - PO Q6HPO [facility] Sodium Chloride 2 spray 03/31/18 08:55 03/31/18 10:25 [place] Nasal [place] - NS 2 sprays TID PRN Administration NASAL CONGESTION CBC, BMP 03/31/18 06:30 03/31/18 06:30 Ex stress mibi 10/2014: 5 mins, 30 secs, no ischemia stress echo 10/2016 nonischemic stress test by EKG, mod T, no echo evidence of inducible ischemia, exercised 4:38 min, peak RVSP 71 mmHg, post exercise carotids 09/2016 mild nonobstructive dz Holter 7 days 05/2017 NSR, sinus kalani x3 to low 50s bpm (from 2-7 AM episodes) ecg: sr, nl intervals, lat twis, no sig change prior CXR no acute process echo 01/14/18 nl LV function, no sig valvular abnormalities a/p: 72M h/o HTN, HLD, colitis, TIA (no residual deficits) p/w weakness. weakness, uti, sepsis: -abx per ID near syncope: - has had workup for falls in the past in cardiology clinic including echo, 7 day holter, stress testing, carotids which were unremarkable - echo unremarkable - thus far does not seem cardiac in etiology - currently has loop recorder in place, cont outpt monitoring h/o TIA - continue statin, neuro following HTN: - controlled on metoprolol, losartan, continue HLD: - continue home statin h/o PE -xarelto was stopped and is on aspirin 81 mg daily now cardiac tapia stable
[2018-03-31] MEDS: NITROFURANTOIN MACROCRYSTAL 50 MG CAPSULE (FP) PO SCH ×3 (11:58→23:25)
--- NOTE | 2018-03-31 12:20 | CONSULT ---
Consult Consult Specialty:: PM&R - History of Present Illness Chief Complaint: wants to go home History of Present Illness: This is a 72 year old man with a medical history of TIA, HTN, HLD, IBS, colitis , bladder cancer s/p XRT/ ileal conduit, prostate cancer, borderline DM, who presented to the ED 03/23/18 with UTI and difficulty walking up stairs. He was diagnosed with E coli UTI, for which ID was consulted. Neuro was consulted for toxic metabolic encephalopathy due to UTI. Cardiology was consulted for near- syncope, who reported recent negative cardiac work-up and felt the syncope was not cardiac in etiology. Pulm was also consulted for CXR findings and dry cough , who felt symptoms were due to atelectasis as opposed to PNA. He was seen by PT , and on 03/30/18 he was Contact Guard in Transfers, and ambulated 60 feet Contact Guard with Rolling Walker. Physiatry is being consulted for further recommendations. 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: TIA Cardio/Vascular: Yes: HTN, Hyperlipdemia Gastrointestinal: Yes: Inflamatory Bowel Disease Renal/: Yes: BPH, Cancer (Prostate), UTI, Other (SEE ABOVE) Endocrine: Yes: Diabetes Mellitus - Past Surgical History Past Surgical History: Yes: Cataract Removal, Ileosotomy - Alcohol/Substance Use Hx Alcohol Use: No History of Substance Use: reports: None - Smoking History Smoking history: Never smoked Have you smoked in the past 12 months: No Aproximately how many cigarettes per day: 10 If you are a former smoker, when did you quit?: 1989 - Social History Usual Living Arrangement: Alone (lives alone in apartment with 2 steps to enter) ADL: Independent (previously Independent in ADLs without AD) History of Recent Travel: No Home Medications - Allergies Allergies/Adverse Reactions: Allergies Allergy/AdvReac Type Severity Reaction Status Date / Time No Known Allergies Allergy Verified 03/23/18 20:19 - Home Medications Home Medications: Ambulatory Orders Cyanocobalamin [Vitamin B12 -] 1,000 mg PO DAILY 03/09/15 Multivitamins [Multivit ([facility] Formulary)] 1 tab PO DAILY 04/19/15 Calcium 250Mg/Vit-D 125 Units [Oscal 250 mg+D -] 2 combo PO DAILY #60 tablet Losartan Potassium [Cozaar -] 25 mg PO DAILY tablet 01/18/18 Metoprolol Succinate [Toprol XL -] 25 mg PO DAILY tab.sr.24h 01/18/18 Atorvastatin Ca [Lipitor] 40 mg PO DAILY 03/23/18 Azathioprine [Imuran -] 50 mg PO BID 03/23/18 Mesalamine 1.2 gm PO BID 03/23/18 Aspirin Coated [Ecotrin -] 325 mg PO DAILY 03/24/18 Review of Systems Findings/Remarks: denies fevers, chills, changes in vision/ hearing/ mood, CP, SOB, abdominal pain , nausea, vomiting, constipation, diarrhea, dysuria, muscle/ joint pain, or numbness/ paresthesias BUE/ BLE Physical Exam Vital Signs: Vital Signs Temperature 98.6 F 03/31/18 12:09 Pulse Rate 84 03/31/18 12:09 Respiratory Rate 20 03/31/18 12:09 Blood Pressure 142/74 03/31/18 12:09 O2 Sat by Pulse Oximetry (%) 88 L 03/30/18 21:00 Musculoskeletal: Yes: Other (General: calm elderly M sitting in bed NAD, AAO x2 (unsure of time), on supplemental O2 N/M: R shoulder flexion to 90 degrees, L shoulder flexion to 60 degrees, 3/5 L delt then 4/5 BUE, 4+/5 BLE; Pinprick Intact BUE/ BLE Extremities: no BLE pitting edema, no B calf tenderness ) Labs: CBC, BMP 03/31/18 06:30 03/31/18 06:30 Imaging - Results Chest X-ray: Report Reviewed (CXR 03/30/18 shows increased L lower lung zone markings) Cat Scan: Report Reviewed (CT head 03/23/18 shows no definite interval change compared to 01/13/18) Assessment/Plan Impression: 1) Deficits mobility/ ADLs 2) Deconditioning 3) Gait abnormality 4) E coli UTI 5) Toxic metabolic encephalopathy with hx TIA 6) hx HTN, HLD c/b syncope 7) Atelectasis 8) hx IBS, colitis 9) hx bladder cancer s/p XRT/ ileal conduit 10) hx prostate cancer 11) Borderline DM 12) Overweight 13) Up to date flu shot, no documented pneumovax 14) Anemia Recommendations: 1) PT for stretching strengthening ROM functional mobility and endurance 2) Falls, safety precautions 3) Cardiopulmonary precautions 4) Diabetic precautions 5) DVT ppx: on Lovenox 40mg daily 6) Skin protection: float heels, frequent turning 7) Denies constipation on current bowel regimen 8) Nutrition consult for overweight 9) Monitor CBC given anemia 10) Heat L shoulder prn 11) Discharge planning: he would benefit from short- course inpatient rehabilitation Thank you for this referral.
--- NOTE | 2018-03-31 12:30 | EKG ---
Test Reason : Blood Pressure : / mmHG Vent. Rate : 087 BPM Atrial Rate : 087 BPM P-R Int : 142 ms QRS Dur : 084 ms QT Int : 348 ms P-R-T Axes : 025 032 018 degrees QTc Int : 418 ms NORMAL SINUS RHYTHM NONSPECIFIC ST AND T WAVE ABNORMALITY ABNORMAL ECG Confirmed by MD YISSEL, RK ([id number]) on 03/31/2018 12:30:38 PM Referred By: Chandler WILKINSON Confirmed By:RK DEY MD
--- NOTE | 2018-03-31 14:31 | DS ---
Physical Examination Vital Signs: Vital Signs Temperature 98.6 F 03/31/18 12:09 Pulse Rate 84 03/31/18 12:09 Respiratory Rate 20 03/31/18 12:09 Blood Pressure 142/74 03/31/18 12:09 O2 Sat by Pulse Oximetry (%) 88 L 03/30/18 21:00 Constitutional: Yes: Mild Distress Eyes: Yes: WNL HENT: Yes: WNL Neck: Yes: WNL Cardiovascular: Yes: WNL Respiratory: Yes: WNL Gastrointestinal: Yes: WNL Renal/: Yes: Other (ILUOCONDUIT) Musculoskeletal: Yes: Muscle Weakness Extremities: Yes: Other Edema: No Peripheral Pulses WNL: Yes Integumentary: Yes: WNL Wound/Incision: Yes: Clean/Dry Neurological: Yes: Pre-Existing Deficit, Unsteady Gait, Weakness ...Motor Strength: LLE, RLE Psychiatric: Yes: WNL Labs: CBC, BMP 03/31/18 06:30 03/31/18 06:30 Discharge Summary Reason For Visit: URINARY TRACT INFECTION Current Active Problems Atelectasis (Acute) Colitis (Acute) HLD (hyperlipidemia) (Acute) HTN (hypertension) (Acute) UTI (urinary tract infection) (Acute) Procedures: Principal: CT HEAD Hospital Course: ADMITTED FOR METABOLIC TOXIC ENCEPHALOPATHY, UTI, TREATED ESBL IN URINE ON ERTAPENEM Condition: Stable - Instructions Diet, Activity, Other Instructions: [place] FOR 3 DAYS AGGRESSIVE PT WALKER FOR HOME USE Disposition: LONG-TERM FACILITY - Home Medications Comprehensive Discharge Medication List: Ambulatory Orders Cyanocobalamin [Vitamin B12 -] 1,000 mg PO DAILY 03/09/15 Multivitamins [Multivit ([facility] Formulary)] 1 tab PO DAILY 04/19/15 Calcium 250Mg/Vit-D 125 Units [Oscal 250 mg+D -] 2 combo PO DAILY #60 tablet Losartan Potassium [Cozaar -] 25 mg PO DAILY tablet 01/18/18 Metoprolol Succinate [Toprol XL -] 25 mg PO DAILY tab.sr.24h 01/18/18 Atorvastatin Ca [Lipitor] 40 mg PO DAILY 03/23/18 Azathioprine [Imuran -] 50 mg PO BID 03/23/18 Mesalamine 1.2 gm PO BID 03/23/18 Aspirin Coated [Ecotrin -] 325 mg PO DAILY 03/24/18 Acetaminophen [Tylenol .Regular Strength -] 650 mg PO Q6H PRN tablet 03/31/18 Albuterol 0.083% Nebulizer Richelle [Ventolin 0.083% Nebulizer Soln -] 1 amp NEB Q6H PRN amp 03/31/18 Enoxaparin [Lovenox -] 40 mg SQ DAILY disp.syrin 03/31/18 Fluticasone Prop 0.05% Nasal [Flonase -] 2 spray NS DAILY spray 03/31/18 Loratadine [Claritin -] 10 mg PO DAILY tablet 03/31/18 Mesalamine [Asacol HD -] 800 mg PO TID tablet.dr 03/31/18 Nitrofurantoin Macrocrystal [Macrodantin -] 50 mg PO Q6HPO 3 Days capsule 03/31 Sodium Chloride Nasal [place] [[place] Nasal [place] -] 2 spray NS TID PRN spray 03/31/18
[2018-04-01] MEDS: NITROFURANTOIN MACROCRYSTAL 50 MG CAPSULE (FP) PO SCH ×2 (05:32→12:11)
[2018-04-01] MEDS: MESALAMINE 800 MG TABLET.DR PO SCH ×2 (05:32→14:28)
[2018-04-01] MEDS: FLUTICASONE PROP 0.05% 16 GM NASAL SPRAY NS SCH (09:10)
[2018-04-01] MEDS: ENOXAPARIN NA (PORCINE) 40 MG/0.4 ML DISP.SYRIN SQ SCH (09:11)
[2018-04-01] MEDS: LOSARTAN POTASSIUM 25 MG TABLET PO SCH (09:11)
[2018-04-01] MEDS: azaTHIOprine 50 MG TABLET PO SCH (09:12)
[2018-04-01] MEDS: metoPROLOL SUCCINATE 25 MG TAB.SR.24H (FP) PO SCH (09:12)
[2018-04-01] MEDS: ASPIRIN 325 MG ENTERIC COATED TABLET (FP) PO SCH (09:12)
[2018-04-01] MEDS: LORATADINE 10 MG TABLET PO SCH (09:12)
[2018-04-01] MEDS: MULTIVITAMINS (DAILY MVI) TABLET (FP) PO SCH (09:12)
[2018-04-01] MEDS: CYANOCOBALAMIN 1,000 MCG TABLET (FP) PO SCH (09:12)
[2018-04-01] MEDS: ATORVASTATIN CA 40 MG TABLET (FP) PO SCH (09:13)
--- NOTE | 2018-04-01 09:48 | PN ---
Progress Note, Physician Chief Complaint: weakness History of Present Illness: tired/sleepy no cp, sob, palpit - Current Medication List Current Medications: Active Medications Acetaminophen (Tylenol -) 650 mg PO Q6H PRN PRN Reason: FEVER Last Admin: 03/30/18 22:47 Dose: 650 mg Albuterol Sulfate (Ventolin 0.083% Nebulizer Soln -) 1 amp NEB Q6H PRN PRN Reason: SHORT OF BREATH/WHEEZING Last Admin: 03/31/18 21:59 Dose: 1 amp Aspirin (Ecotrin -) [address] [facility] Last Admin: 04/01/18 09:12 Dose: 325 mg Atorvastatin Calcium (Lipitor -) [address] [facility] Last Admin: 04/01/18 09:13 Dose: 40 mg Azathioprine (Imuran -) [address] [facility] Last Admin: 04/01/18 09:12 Dose: 50 mg Cyanocobalamin (Vitamin B12 -) 1,[address] [facility] Last Admin: 04/01/18 09:12 Dose: 1,000 mcg Enoxaparin Sodium (Lovenox -) [address] [facility] Last Admin: 04/01/18 09:11 Dose: 40 mg Fluticasone Propionate (Flonase -) [address] [facility] Last Admin: 04/01/18 09:10 Dose: 2 sprays Loratadine (Claritin -) [address] [facility] Last Admin: 04/01/18 09:12 Dose: 10 mg Losartan Potassium (Cozaar -) [address] [facility] Last Admin: 04/01/18 09:11 Dose: 25 mg Mesalamine (Asacol Hd -) [address] [facility] Last Admin: 04/01/18 05:32 Dose: 800 mg Metoprolol Succinate (Toprol Xl -) [address] [facility] Last Admin: 04/01/18 09:12 Dose: 25 mg Multivitamins/Minerals/Vitamin C (Tab-A-Vit -) [address] [facility] Last Admin: 04/01/18 09:12 Dose: 1 tab Nitrofurantoin Macrocrystals (Macrodantin -) [address] [facility] Last Admin: 04/01/18 05:32 Dose: 50 mg Sodium Chloride ([place] Nasal [place] -) 2 spray NS TID PRN PRN Reason: NASAL CONGESTION Last Admin: 03/31/18 10:25 Dose: 2 sprays - Objective Vital Signs: Vital Signs Temperature 97.4 F L 04/01/18 06:32 Pulse Rate 79 04/01/18 06:32 Respiratory Rate 20 04/01/18 06:32 Blood Pressure 136/73 04/01/18 06:32 O2 Sat by Pulse Oximetry (%) 92 L 03/31/18 09:00 Constitutional: Yes: Well Nourished, No Distress, Calm Cardiovascular: Yes: Regular Rate and Rhythm, S1, S2. No: Gallop, Murmur Respiratory: Yes: Regular, CTA Bilaterally. No: Accessory Muscle Use, Rales, Wheezes Extremities: No: Cold Edema: No Neurological: Yes: Alert. No: Seizure Psychiatric: No: Agitated Labs: CBC, BMP 03/31/18 06:30 03/31/18 06:30 INR, PTT INR 1.30 (0.83-1.09) H 03/23/18 22:12 Assessment/Plan ecg: sr, nl intervals, lat twis, no sig change prior CXR no acute process echo 01/14/18 nl LV function, no sig valvular abnormalities stress echo 10/2016 nonischemic stress test by EKG, mod T, no echo evidence of inducible ischemia, exercised 4:38 min, peak RVSP 71 mmHg, post exercise Ex stress mibi 10/2014: 5 mins, 30 secs, no ischemia a/p: 72M h/o HTN, HLD, colitis, TIA (no residual deficits) p/w weakness weakness, uti, sepsis: -abx per ID -toxic metab encephalopathy per neuro near syncope: - has had workup for falls in the past in cardiology clinic including echo, 7 day holter, stress testing, carotids which were unremarkable - echo unremarkable - does not seem cardiac in etiology - currently has loop recorder in place--outpt f/u (no alerts received by me including from DOA at home) h/o TIA - continue ASA, statin HTN: - well controlled on metoprolol, losartan, continue same plan HLD: - continue home statin h/o provoked PE -s/p course of xarelto -stable pancytopenia: -follows with heme (hossein) as outpt OK FOR D/C FROM [facility]
--- NOTE | 2018-04-01 14:02 | PN ---
Progress Note, Physician History of Present Illness: pulmonary no distress,weak,-sob. - Current Medication List Current Medications: Active Medications Acetaminophen (Tylenol -) 650 mg PO Q6H PRN PRN Reason: FEVER Last Admin: 03/30/18 22:47 Dose: 650 mg Albuterol Sulfate (Ventolin 0.083% Nebulizer Soln -) 1 amp NEB Q6H PRN PRN Reason: SHORT OF BREATH/WHEEZING Last Admin: 03/31/18 21:59 Dose: 1 amp Aspirin (Ecotrin -) 325 mg PO DAILY [facility] Last Admin: 04/01/18 09:12 Dose: 325 mg Atorvastatin Calcium (Lipitor -) 40 mg PO DAILY [facility] Last Admin: 04/01/18 09:13 Dose: 40 mg Azathioprine (Imuran -) 50 mg PO BID [facility] Last Admin: 04/01/18 09:12 Dose: 50 mg Cyanocobalamin (Vitamin B12 -) 1,000 mcg PO DAILY [facility] Last Admin: 04/01/18 09:12 Dose: 1,000 mcg Enoxaparin Sodium (Lovenox -) 40 mg SQ DAILY [facility] Last Admin: 04/01/18 09:11 Dose: 40 mg Fluticasone Propionate (Flonase -) 2 spray NS DAILY [facility] Last Admin: 04/01/18 09:10 Dose: 2 sprays Loratadine (Claritin -) 10 mg PO DAILY [facility] Last Admin: 04/01/18 09:12 Dose: 10 mg Losartan Potassium (Cozaar -) 25 mg PO DAILY [facility] Last Admin: 04/01/18 09:11 Dose: 25 mg Mesalamine (Asacol Hd -) 800 mg PO TID [facility] Last Admin: 04/01/18 05:32 Dose: 800 mg Metoprolol Succinate (Toprol Xl -) 25 mg PO DAILY [facility] Last Admin: 04/01/18 09:12 Dose: 25 mg Multivitamins/Minerals/Vitamin C (Tab-A-Vit -) 1 tab PO DAILY [facility] Last Admin: 04/01/18 09:12 Dose: 1 tab Nitrofurantoin Macrocrystals (Macrodantin -) 50 mg PO Q6HPO [facility] Last Admin: 04/01/18 12:11 Dose: 50 mg Sodium Chloride ([place] Nasal [place] -) 2 spray NS TID PRN PRN Reason: NASAL CONGESTION Last Admin: 03/31/18 10:25 Dose: 2 sprays - Objective Vital Signs: Vital Signs Temperature 97.4 F L 04/01/18 06:32 Pulse Rate 79 04/01/18 06:32 Respiratory Rate 20 04/01/18 06:32 Blood Pressure 136/73 04/01/18 06:32 O2 Sat by Pulse Oximetry (%) 92 L 03/31/18 09:00 Constitutional: Yes: Well Nourished, Calm Eyes: Yes: WNL HENT: Yes: WNL Neck: Yes: WNL Cardiovascular: Yes: Regular Rate and Rhythm, S1, S2 Respiratory: Yes: CTA Bilaterally Gastrointestinal: Yes: Normal Bowel Sounds, Soft Extremities: Yes: WNL Edema: No Labs: CBC, BMP Assessment/Plan Problem List - Problems (1) Atelectasis Code(s): J98.11 - ATELECTASIS (2) Colitis Code(s): K52.9 - NONINFECTIVE GASTROENTERITIS AND COLITIS, UNSPECIFIED (3) HLD (hyperlipidemia) Code(s): E78.5 - HYPERLIPIDEMIA, UNSPECIFIED Qualifiers: Hyperlipidemia type: unspecified Qualified Code(s): E78.5 - Hyperlipidemia , unspecified (4) HTN (hypertension) Code(s): I10 - ESSENTIAL (PRIMARY) HYPERTENSION Qualifiers: Hypertension type: unspecified Qualified Code(s): I10 - Essential (primary ) hypertension (5) UTI (urinary tract infection) Code(s): N39.0 - URINARY TRACT INFECTION, SITE NOT SPECIFIED Qualifiers: Urinary tract infection type: site unspecified Hematuria presence: with hematuria Qualified Code(s): N39.0 - Urinary tract infection, site not specified; R31.9 - Hematuria, unspecified (6) Diabetes Code(s): E11.9 - TYPE 2 DIABETES MELLITUS WITHOUT COMPLICATIONS (7) History of prostate cancer Code(s): Z85.46 - PERSONAL HISTORY OF MALIGNANT NEOPLASM OF PROSTATE (8) Inflammatory bowel disease Code(s): K63.89 - OTHER SPECIFIED DISEASES OF INTESTINE (9) Metabolic encephalopathy Code(s): G93.41 - METABOLIC ENCEPHALOPATHY Assessment/Plan O2 as needed ABX per ID for UTI Fall precautions VTE prophylaxis BD TX PRN Chest x-ray today Incentive spirometry DR ROBERTSON
--- NOTE | 2018-04-01 15:55 | PN ---
Progress Note (short form) - Note Progress Note: PATIENT GOING TO [facility] FOR SNF WILL F/U LABS THERE PAPERWORK AND FORMS COMPLETED Problem List - Problems (1) HTN (hypertension) Code(s): I10 - ESSENTIAL (PRIMARY) HYPERTENSION Qualifiers: Hypertension type: unspecified Qualified Code(s): I10 - Essential (primary ) hypertension (2) UTI (urinary tract infection) Code(s): N39.0 - URINARY TRACT INFECTION, SITE NOT SPECIFIED Qualifiers: Urinary tract infection type: site unspecified Hematuria presence: with hematuria Qualified Code(s): N39.0 - Urinary tract infection, site not specified; R31.9 - Hematuria, unspecified (3) Ileal conduit stomal stenosis Code(s): T85.858A - STENOSIS DUE TO OTHER INTERNAL PROSTH DEV/GRFT, INIT (4) Sepsis Code(s): A41.9 - SEPSIS, UNSPECIFIED ORGANISM Qualifiers: Sepsis type: sepsis due to unspecified organism Qualified Code(s): A41.9 - Sepsis, unspecified organism (5) Toxic metabolic encephalopathy Code(s): G92 - TOXIC ENCEPHALOPATHY (6) Unsteady gait Code(s): R26.81 - UNSTEADINESS ON FEET
[2018-04-01 16:12] VITALS: BP 122/58; PULSE 88; TEMP 98.5
== END 2018-04-01 17:35 | DRG 689 ==
LOC: JER 20:06 → JERBED 23:20 → J8W 03-24 20:25
PROVIDERS: ADMIT Internal Medicine; ATTEND Family Medicine
DX: N39.0 Urinary tract infection, site not specified (principal); A41.9 Sepsis, unspecified organism; G92 Toxic encephalopathy; J98.11 Atelectasis; D61.818 Other pancytopenia; E66.9 Obesity, unspecified; Z68.29 Body mass index [BMI] 29.0-29.9, adult; I10 Essential (primary) hypertension; Z85.51 Personal history of malignant neoplasm of bladder; E78.5 Hyperlipidemia, unspecified; Z85.46 Personal history of malignant neoplasm of prostate; Z87.891 Personal history of nicotine dependence; Z86.73 Personal history of transient ischemic attack (TIA), and cerebral infarction without residual deficits; R73.03 Prediabetes; D64.9 Anemia, unspecified; B96.29 Other Escherichia coli [E. coli] as the cause of diseases classified elsewhere; B95.2 Enterococcus as the cause of diseases classified elsewhere; N40.0 Benign prostatic hyperplasia without lower urinary tract symptoms; Z86.711 Personal history of pulmonary embolism; R26.9 Unspecified abnormalities of gait and mobility
CPT/HCPCS: 36415; 70450-TC; 71045-TC-FY; 80048; 80053; 81003; 81015; 82272; 82550; 82728; 82962; 83540; 83550; 83605; 83735; 84100; 84466; 84484; 85025; 85027; 85610; 85730; 87040; 87086; 87186; 87804; 93005; 93010; 94010; 94640; 97116-GP; 97162-GP; 99285-25; J0131; J1756; J7030

== ENCOUNTER 2018-04-27 20:06 | Inpatient (IN) | payer OTHER, MEDICARE ==
--- NOTE | 2018-04-27 20:18 | PDOC ---
Rapid Medical Evaluation Chief Complaint: Altered Mental Status Time Seen by Provider: 04/27/18 20:13 Medical Evaluation: Allergies Allergy/AdvReac Type Severity Reaction Status Date / Time No Known Allergies Allergy Verified 03/23/18 20:19 04/27/18 20:13 I have performed a brief in-person evaluation of this patient. The patient presents with a chief complaint of: altered mental staus= friend called EMS to bring as was unresponsive Pertinent physical exam findings: alert/ but slow to respond- + HX of CVA/ mult. medical problems I have ordered the following: to Main ER for emergent eval The patient will proceed to the ED for further evaluation. Discharge Disposition - Diagnosis Altered mental status - Referrals - Patient Instructions - Post Discharge Activity
[2018-04-27] MEDS ORDERED: SODIUM CHLORIDE 0.9% 500 ML INFUS.BAG IV ONE (20:59)
[2018-04-27] MEDS ORDERED: ACETAMINOPHEN 1000 MG/100 ML VIAL (NON FORMULARY) IVPB ONE (20:59)
--- NOTE | 2018-04-27 21:11 | PDOC ---
History of Present Illness - General Chief Complaint: Altered Mental Status Stated Complaint: AMS Time Seen by Provider: 04/27/18 20:13 - History of Present Illness Initial Comments: 04/27/18 21:10 The patient is a 72 year old male with a PMH of HTN, HLD, colitis, IBS, bladder cancer (s/p urostomy bag), TIA (no residual deficits) BIBEMS for AMS. Patient states his neighbor told him "you don't look well" and called 911. On exam patient is A&O x3, drowsy but arousable. Limited historian - keeps answering " I don't know." Does c/o non-productive cough. 10 point ROS otherwise negative including no chest pain, no shortness of breath, no abdominal pain, no nausea/ vomiting, no diarrhea/constipation. NKDA Surgical: bladder CA resection, urostomy bag Social: former smoker, denies other toxic habits PMD: Dr. Appiah As per EMR, patient has previous evaluations for similar complaints and was diagnosed with acute metabolic encephalopathy. Past History - Past Medical History Allergies/Adverse Reactions: Allergies Allergy/AdvReac Type Severity Reaction Status Date / Time No Known Allergies Allergy Verified 04/27/18 20:16 Home Medications: Ambulatory Orders Cyanocobalamin [Vitamin B12 -] 1,000 mg PO DAILY 03/09/15 Multivitamins [Multivit ([facility] Formulary)] 1 tab PO DAILY 04/19/15 Calcium 250Mg/Vit-D 125 Units [Oscal 250 mg+D -] 2 combo PO DAILY #60 tablet Losartan Potassium [Cozaar -] 25 mg PO DAILY tablet 01/18/18 Metoprolol Succinate [Toprol XL -] 25 mg PO DAILY tab.sr.24h 01/18/18 Atorvastatin Ca [Lipitor] 40 mg PO DAILY 03/23/18 Azathioprine [Imuran -] 50 mg PO BID 03/23/18 Mesalamine 1.2 gm PO BID 03/23/18 Aspirin Coated [Ecotrin -] 325 mg PO DAILY 03/24/18 Acetaminophen [Tylenol .Regular Strength -] 650 mg PO Q6H PRN tablet 03/31/18 Albuterol 0.083% Nebulizer Richelle [Ventolin 0.083% Nebulizer Soln -] 1 amp NEB Q6H PRN amp 03/31/18 Enoxaparin [Lovenox -] 40 mg SQ DAILY disp.syrin 03/31/18 Fluticasone Prop 0.05% Nasal [Flonase -] 2 spray NS DAILY spray 03/31/18 Loratadine [Claritin -] 10 mg PO DAILY tablet 03/31/18 Mesalamine [Asacol HD -] 800 mg PO TID tablet.dr 03/31/18 Nitrofurantoin Macrocrystal [Macrodantin -] 50 mg PO Q6HPO 3 Days capsule 03/31 Sodium Chloride Nasal [place] [[place] Nasal [place] -] 2 spray NS TID PRN spray 03/31/18 Anemia: No Asthma: No Cancer: Yes (PROSTATE with rad ,UROSTOMY) Cardiac Disorders: No CVA: No COPD: No CHF: No DVT: No Dementia: No Diabetes: Yes (hx borderline) GI Disorders: Yes (COLITIS) Disorders: No HTN: Yes Hypercholesterolemia: Yes Liver Disease: No Seizures: No Thyroid Disease: No - Surgical History Abdominal Surgery: Yes (HERNIA,UROSTOMY) Appendectomy: No Cardiac Surgery: No Cholecystectomy: No GI Surgery: Yes Lung Surgery: No Neurologic Surgery: No Orthopedic Surgery: No - Suicide/Smoking/Psychosocial Hx Smoking History: Former smoker Have you smoked in the past 12 months: No Number of Cigarettes Smoked Daily: 10 If you are a former smoker, when did you quit?: 1989 Information on smoking cessation initiated: No 'Breaking Loose' booklet given: 05/02/17 Hx Alcohol Use: No Drug/Substance Use Hx: No Substance Use Type: None Hx Substance Use Treatment: No Review of Systems - Review of Systems Constitutional: No: Chills, Fever HEENTM: No: Blurred Vision, Double Vision Respiratory: Yes: Cough. No: Shortness of Breath, Productive cough Cardiac (ROS): No: Chest Pain, Lightheadedness, Palpitations, Syncope ABD/GI: No: Constipated, Diarrhea, Nausea, Vomiting : No: Burning, Dysuria *Physical Exam - Vital Signs Last Vital Signs Temp Pulse Resp BP Pulse Ox 102.1 F H 90 18 159/75 94 L 04/27/18 20:58 04/27/18 20:07 04/27/18 20:07 04/27/18 20:07 04/27/18 20:07 - Physical Exam Comments: 04/27/18 21:48 A&O x3, drowsy but arousable General Appearance: Yes: Nourished, Obese HEENT: positive: Normal Voice, Hearing Grossly Normal Neck: positive: Trachea midline, Supple Respiratory/Chest: positive: Lungs Clear, Normal Breath Sounds. negative: Crackles, Wheezing Cardiovascular: positive: S1, S2, Murmur (Grade II Systolic Murmur) Vascular Pulses: Dorsalis-Pedis (R): 2+, Doralis-Pedis (L): 2+ Gastrointestinal/Abdominal: positive: Normal Bowel Sounds, Soft. negative: Distended, Guarding, Tenderness, Hernia, Mass Extremity: positive: Normal Capillary Refill, Normal Inspection Integumentary: positive: Normal Color, Dry Neurologic: positive: Fully Oriented, Alert ED Treatment Course - LABORATORY CBC & Chemistry Diagram: 04/27/18 21:45 04/27/18 21:45 - ADDITIONAL ORDERS Additional order review: Laboratory Results 04/27/18 20:43 POC Glucometer [id number] 04/27/18 20:43 POC Glucometer [id number] - RADIOLOGY Radiology Studies Ordered: Category Date Time Status HEAD CT WITHOUT CONTRAST [CT] Stat CT Scan 04/27/18 20:44 Ordered CHEST X-RAY PORTABLE* [RAD] Stat Radiology 04/27/18 20:44 Ordered Medical Decision Making - Medical Decision Making 04/27/18 21:50 72 year old male presents with outside complaint of AMS. Febrile (102.6 rectal ) @ presentation. Tylenol + Rocephin for presumptive UTI. As per EMR h/o UTI, however patient has urostomy bag. Will obtain AMS labs, CT head, basic labs. Reassess. 04/27/18 22:32 No leukocytosis CMP unremarkable TSH, Ammonia wnL 04/27/18 23:12 My read of head CT shows no acute infarct/ischemia 04/27/18 23:13 X-ray shows RLL infilitrate - worsened since previous CXR. Will treat empirically with Vanc/Zosyn. 04/27/18 23:56 Radiology read shows no new infarct/ischemia as compared to Head CT of 03/23/18. Case d/w MARIAN Shankar, patient admitted to inpatient medicine service. Clinical Impression: PNA *DC/Admit/Observation/Transfer Diagnosis at time of Disposition: Pneumonia - Discharge Dispostion Condition at time of disposition: Fair Decision to Admit order: Yes - Referrals - Patient Instructions - Post Discharge Activity
--- NOTE | 2018-04-27 21:44 | PDOC ---
Attending Attestation - HPI HPI: 04/27/18 21:46 The patient is a 72 year old male brought via EMS, with a significant past medical history of HTN, HLD, colitis, IBS, bladder cancer (s/p urostomy bag), TIA (no residual deficits), who presents to the ED complaining of altered mental status. On presentation the patient is able to report that prior to arriving at the ED, his neighbor commented to him that he did not look well and proceeded to call EMS. The patient is drowsy but arousable and does reports a non-productive cough. The history is limited due to the patient altered mental status, and he continuously says "i dont know". Allergies: None Past surgical history: bladder CA resection, urostomy bag, hernia repair Social History: Former smoker - Physicial Exam PE: 04/27/18 21:56 Constitution: A&O x3, drowsy but arousable General Appearance: Yes: Nourished, Obese HEENT: positive: Normal Voice, Hearing Grossly Normal Neck: positive: Trachea midline, Supple Respiratory/Chest: positive: Lungs Clear, Normal Breath Sounds. negative: Crackles, Wheezing Cardiovascular: positive: S1, S2, Murmur (Grade II Systolic Murmur) Vascular Pulses: Dorsalis-Pedis (R): 2+, Doralis-Pedis (L): 2+ Gastrointestinal/Abdominal: positive: Normal Bowel Sounds, Soft. negative: Distended, Guarding, Tenderness, Hernia, Mass Extremity: positive: Normal Capillary Refill, Normal Inspection Integumentary: positive: Normal Color, Dry Neurologic: positive: Fully Oriented, Alert <Ralph Torres - Last Filed: 04/27/18 21:56> - Resident Resident Name: Monae Hood - ED Attending Attestation I have performed the following: I have examined & evaluated the patient, The case was reviewed & discussed with the resident, I agree w/resident's findings & plan, Exceptions are as noted - HPI HPI: 04/27/18 21:42 72 yo male JOHN from home after his neighbor found him lethargic - Medical Decision Making 04/27/18 23:34 cxr + infiltrates, pt has fever w cough imp pneumonia vanco /zosyn given and admitted to hospitalist, Dr Appiah 04/27/18 23:43 ct scan head : no interval change in comparison to prior CT study of 03/23/18. - small chronic L frontal subcortical white matter infarct, mild to moderate periventicular chronic microvascular ischemic changes <Rachna Powell - Last Filed: 04/27/18 23:45>
[2018-04-27] MEDS ORDERED: ACETAMINOPHEN INJECTION 100 ML IVPB ONE (21:54)
[2018-04-27 22:09] LABS: BASO % 0.2 % (0-2.0); EOS % 0.3 % (0-4.5); HEMATOCRIT 34.3 % (35.4-49); HEMOGLOBIN 11.4 GM/dL (11.7-16.9); MCH 30.2 pg (25.7-33.7); MCHC 33.2 g/dl (32.0-35.9); MEAN CELL VOLUME 90.9 fl (80-96); MEAN PLT VOLUME 9.1 fl (7.5-11.1); MONO % 5.6 % (3.8-10.2); NEUT % 83.9 % (42.8-82.8); PLATELET COUNT 110 K/MM3 (134-434); RBC 3.78 M/mm3 (4.00-5.60); RDW 18.2 % (11.9-15.9); WHITE BLOOD COUNT 4.9 K/mm3 (4.0-10.0)
[2018-04-27 22:29] LABS: ALBUMIN 3.7 g/dl (3.4-5.0); ALK PHOS 71 U/L (45-117); ANION GAP 7 MMOL/L (8-16); BILIRUBIN,TOTAL 0.8 mg/dL (0.2-1); BLOOD UREA NITROGEN 17 mg/dL (7-18); CALCIUM 8.6 mg/dL (8.5-10.1); CHLORIDE 104 mmol/L (98-107); CO2 28 mmol/L (21-32); CREATININE 0.9 mg/dL (0.55-1.3); GLUCOSE,RANDOM 149 mg/dL (74-106); POTASSIUM 3.8 mmol/L (3.5-5.1); SGOT/AST 16 U/L (15-37); SGPT/ALT 23 U/L (13-61); SODIUM 139 mmol/L (136-145); TOT PROT 7.5 g/dl (6.4-8.2)
[2018-04-27] MEDS ORDERED: CEFTRIAXONE 1 GM/50 ML BAG ONE (23:20)
[2018-04-27] MEDS ORDERED: VANCOMYCIN 1,000 MG in DEXTROSE 5%-WATER - 250 ML IVPB ONE (23:20)
[2018-04-27] MEDS ORDERED: PIPERACILLIN/TAZOB 4.5 GM 4.5 GM in DEXTROSE 5%-WATER 100 ML IVPB ONE (23:21)
[2018-04-27] MEDS ORDERED: PIPERACILLIN/TAZOB 4.5 GM 4.5 GM/100 ML BAG IVPB ONE (23:24)
[2018-04-27 23:42] LABS: URINE APPEARANCE SLCLOUDY; URINE BILIRUBIN NEGATIVE (<2.0 mg/dL); URINE COLOR YELLOW; URINE GLUCOSE (UA) NEGATIVE (NEGATIVE); URINE KETONE NEGATIVE (NEGATIVE); URINE LEUK ESTERASE 3+ (NEGATIVE); URINE NITRITE POSITIVE (NEGATIVE); URINE PROTEIN NEGATIVE (NEGATIVE); URINE UROBILINOGEN NEGATIVE mg/dL (0.2-1.0)
--- NOTE | 2018-04-27 23:43 | HP ---
Admitting History and Physical - Primary Care Physician PCP: Maggie Wilson - Admission Chief Complaint: AMS History of Present Illness: This is a 72 y/o man with a past medical history of Bladder Ca, s/e Urostomy. Who presents to the ED via ambulance for AMS. Per ED records, patient's neighbor felt the patient appeared altered and called EMS. Patient is alert and oriented reports concerns about keeping his stoma clean to avoid UTIs. Patient has no other complaints. patient denies fever, chills, cough, SOB, CP, AP, N/V/D , constipation. History Source: Patient, Medical Record Limitations to Obtaining History: No Limitations - Past Medical History [employer]: Yes: TIA Cardiovascular: Yes: HTN, Hyperlipdemia Gastrointestinal: Yes: Inflamatory Bowel Disease Renal/: Yes: BPH, Cancer (Prostate), UTI, Other (SEE ABOVE) Endocrine: Yes: Diabetes Mellitus - Past Surgical History Past Surgical History: Yes: Cataract Removal, Ileosotomy - Smoking History Smoking history: Former smoker Have you smoked in the past 12 months: No Aproximately how many cigarettes per day: 10 If you are a former smoker, when did you quit?: 1989 - Alcohol/Substance Use Hx Alcohol Use: No History of Substance Use: reports: None - Social History ADL: Independent (previously Independent in ADLs without AD) History of Recent Travel: No Home Medications - Allergies Allergies/Adverse Reactions: Allergies Allergy/AdvReac Type Severity Reaction Status Date / Time No Known Allergies Allergy Verified 04/27/18 20:16 - Home Medications Home Medications: Ambulatory Orders Cyanocobalamin [Vitamin B12 -] 1,000 mg PO DAILY 03/09/15 Multivitamins [Multivit ([facility] Formulary)] 1 tab PO DAILY 04/19/15 Calcium 250Mg/Vit-D 125 Units [Oscal 250 mg+D -] 2 combo PO DAILY #60 tablet Losartan Potassium [Cozaar -] 25 mg PO DAILY tablet 01/18/18 Metoprolol Succinate [Toprol XL -] 25 mg PO DAILY tab.sr.24h 01/18/18 Atorvastatin Ca [Lipitor] 40 mg PO DAILY 03/23/18 Azathioprine [Imuran -] 50 mg PO BID 03/23/18 Mesalamine 1.2 gm PO BID 03/23/18 Aspirin Coated [Ecotrin -] 325 mg PO DAILY 03/24/18 Acetaminophen [Tylenol .Regular Strength -] 650 mg PO Q6H PRN tablet 03/31/18 Albuterol 0.083% Nebulizer Richelle [Ventolin 0.083% Nebulizer Soln -] 1 amp NEB Q6H PRN amp 03/31/18 Enoxaparin [Lovenox -] 40 mg SQ DAILY disp.syrin 03/31/18 Fluticasone Prop 0.05% Nasal [Flonase -] 2 spray NS DAILY spray 03/31/18 Loratadine [Claritin -] 10 mg PO DAILY tablet 03/31/18 Mesalamine [Asacol HD -] 800 mg PO TID tablet.dr 03/31/18 Nitrofurantoin Macrocrystal [Macrodantin -] 50 mg PO Q6HPO 3 Days capsule 03/31 Sodium Chloride Nasal [place] [[place] -] 2 spray NS TID PRN spray 03/31/18 Review of Systems - Review of Systems Constitutional: reports: No Symptoms Eyes: reports: No Symptoms HENT: reports: No Symptoms Neck: reports: No Symptoms Cardiovascular: reports: No Symptoms Respiratory: reports: No Symptoms Gastrointestinal: reports: No Symptoms Genitourinary: reports: No Symptoms Breasts: reports: No Symptoms Reported Musculoskeletal: reports: No Symptoms Integumentary: reports: No Symptoms Neurological: reports: No Symptoms Endocrine: reports: No Symptoms Hematology/Lymphatic: reports: No Symptoms Physical Examination Vital Signs: Vital Signs Temperature 102.1 F H 04/27/18 20:58 Pulse Rate 90 04/27/18 20:07 Respiratory Rate 18 04/27/18 20:07 Blood Pressure 159/75 04/27/18 20:07 O2 Sat by Pulse Oximetry (%) 94 L 04/27/18 20:07 Constitutional: Yes: Well Nourished, No Distress, Calm Eyes: Yes: WNL, Conjunctiva Clear, EOM Intact, PERRL HENT: Yes: WNL, Atraumatic, Normocephalic Neck: Yes: WNL, Supple, Trachea Midline Cardiovascular: Yes: WNL, Regular Rate and Rhythm, S1, S2 Respiratory: Yes: WNL, Regular, CTA Bilaterally Gastrointestinal: Yes: Soft, Abdomen, Obese, Other (Urostomy R- side of abdomen) ...Rectal Exam: Yes: Deferred Renal/: Yes: Other (Urostomy) Breast(s): Yes: WNL Musculoskeletal: Yes: WNL Extremities: Yes: WNL Edema: No Peripheral Pulses WNL: Yes Neurological: Yes: WNL, Alert, Oriented, Cran Nerves II-XII Intact ...Motor Strength: WNL Psychiatric: Yes: WNL, Alert, Oriented Labs: CBC, BMP 04/27/18 21:45 04/27/18 21:45 Laboratory Results - last 24 hr 04/27/18 04/27/18 04/27/18 20:43 21:45 21:45 WBC 4.9 RBC 3.78 L Hgb 11.4 L Hct 34.3 L D MCV 90.9 MCH 30.2 MCHC 33.2 RDW 18.2 H Plt Count 110 L MPV 9.1 Absolute Neuts (auto) 4.1 Neutrophils % 83.9 H Lymphocytes % 10.0 D Monocytes % 5.6 Eosinophils % 0.3 D Basophils % 0.2 Nucleated RBC % 0 Sodium 139 Potassium 3.8 Chloride 104 Carbon Dioxide 28 Anion Gap 7 L BUN 17 Creatinine 0.9 Creat Clearance w eGFR > 60 POC Glucometer 168.34413 Random Glucose 149 H Calcium 8.6 Total Bilirubin 0.8 AST 16 ALT 23 Alkaline Phosphatase 71 Ammonia Creatine Kinase 36 Troponin I < 0.02 Total Protein 7.5 Albumin 3.7 TSH 0.66 D Urine Color Urine Appearance Urine pH Ur Specific [place] Urine Protein Urine Glucose (UA) Urine Ketones Urine Blood Urine Nitrite Urine Bilirubin Urine Urobilinogen Ur Leukocyte Esterase Urine WBC (Auto) Urine RBC (Auto) Ur Epithelial Cells Urine Bacteria Urine Mucus 04/27/18 04/27/18 21:45 23:33 WBC RBC Hgb Hct MCV MCH MCHC RDW Plt Count MPV Absolute Neuts (auto) Neutrophils % Lymphocytes % Monocytes % Eosinophils % Basophils % Nucleated RBC % Sodium Potassium Chloride Carbon Dioxide Anion Gap BUN Creatinine Creat Clearance w eGFR POC Glucometer Random Glucose Calcium Total Bilirubin AST ALT Alkaline Phosphatase Ammonia 26.39 Creatine Kinase Troponin I Total Protein Albumin TSH Urine Color Yellow Urine Appearance Slcloudy Urine pH 5.0 Ur Specific [place] 1.013 Urine Protein Negative Urine Glucose (UA) Negative Urine Ketones Negative Urine Blood 1+ H Urine Nitrite Positive Urine Bilirubin Negative Urine Urobilinogen Negative Ur Leukocyte Esterase 3+ H Urine WBC (Auto) 142 Urine RBC (Auto) 8 Ur Epithelial Cells Rare Urine Bacteria Rare Urine Mucus Rare Intake & Output 04/25/18 04/26/18 04/27/18 04/28/18 23:59 23:59 23:59 23:59 Weight 90.718 kg Current Medications Generic Name Dose Route Start Last Admin Trade Name Freq PRN Reason Stop Dose Admin Piperacillin Sod/Tazobactam 50 mls @ 100 mls/hr 04/28/18 10:00 Sod 3.375 gm/ Dextrose IVPB Q8H-IV [facility] Protocol Vancomycin HCl 1,000 mg 04/28/18 10:00 Vancomycin (Pre-Docked) IVPB DAILY [facility] Protocol Imaging - Results Chest X-ray: Image Reviewed Cat Scan: Report Reviewed, Image Reviewed Problem List - Problems (1) Complicated UTI (urinary tract infection) Assessment/Plan: UA reviewed Urine culture pending Started on Zosyn, Vancomycin, continue Appreciate ID consult Monitor CBC, BMP Monitor vitals Code(s): N39.0 - URINARY TRACT INFECTION, SITE NOT SPECIFIED (2) Metabolic encephalopathy Assessment/Plan: Likely secondary to UTI Fall precautions Neurochecks Code(s): G93.41 - METABOLIC ENCEPHALOPATHY (3) Diabetes Assessment/Plan: controlled BGMs continue home meds Code(s): E11.9 - TYPE 2 DIABETES MELLITUS WITHOUT COMPLICATIONS (4) HLD (hyperlipidemia) Assessment/Plan: continue home med monitor LFTs Code(s): E78.5 - HYPERLIPIDEMIA, UNSPECIFIED Qualifiers: Hyperlipidemia type: unspecified Qualified Code(s): E78.5 - Hyperlipidemia , unspecified (5) HTN (hypertension) Assessment/Plan: Stable Monitor BP Continue home med Code(s): I10 - ESSENTIAL (PRIMARY) HYPERTENSION Qualifiers: Hypertension type: unspecified Qualified Code(s): I10 - Essential (primary ) hypertension (6) Ileal conduit stomal stenosis Assessment/Plan: Stomal Care Appreciate Social Work consult for VNS services for Urostomy care Code(s): T85.858A - STENOSIS DUE TO OTHER INTERNAL PROSTH DEV/GRFT, INIT (7) TIA (transient ischemic attack) Assessment/Plan: Continue home meds Code(s): G45.9 - TRANSIENT CEREBRAL ISCHEMIC ATTACK, UNSPECIFIED (8) IBS (irritable bowel syndrome) Assessment/Plan: Continue home meds Code(s): K58.9 - IRRITABLE BOWEL SYNDROME WITHOUT DIARRHEA Assessment/Plan 72 y/o man admitted for Complicated UTI and Acute Metabolic Encephalopathy for further evaluation of their emergent condition. Plan: FEN PO Fluids as tolerated Replete lytes prn Low Na Diet DVT ppx OOB SCDs Dispo: Requires Inpatient Care Visit type - Emergency Visit Emergency Visit: Yes ED Registration Date: 04/27/18 Care time: The patient presented to the Emergency Department on the above date and was hospitalized for further evaluation of their emergent condition. - New Patient This patient is new to me today: Yes Date on this admission: 04/27/18 - Critical Care Critical Care patient: No
[2018-04-27 23:51] LABS: EPI CELLS RARE /HPF (FEW); URINE BACTERIA RARE /hpf (NONE SEEN); URINE MUCUS RARE
[2018-04-28] MEDS ORDERED: VANCOMYCIN 1 GRAM (PRE-DOCKED) 1,000 MG/250 ML BAG IVPB ONE (00:01)
[2018-04-28] MEDS ORDERED: ACETAMINOPHEN 325 MG TABLET (FP) PO PRN (05:49)
[2018-04-28] MEDS ORDERED: ALBUTEROL SO4 0.083% IH SOL 2.5 MG/3 ML VIAL.NEB. NEB PRN (05:49)
[2018-04-28] MEDS ORDERED: SODIUM CHLORIDE NASAL SPRAY 44 ML BOTTLE NS PRN (05:49)
[2018-04-28] MEDS: MESALAMINE 800 MG TABLET.DR PO SCH ×3 (08:00→18:00)
[2018-04-28 08:35] LABS: ANION GAP 9 MMOL/L (8-16); BLOOD UREA NITROGEN 16 mg/dL (7-18); CALCIUM 8.8 mg/dL (8.5-10.1); CHLORIDE 103 mmol/L (98-107); CO2 28 mmol/L (21-32); CREATININE 0.9 mg/dL (0.55-1.3); GLUCOSE,RANDOM 122 mg/dL (74-106); MAGNESIUM 2.1 mg/dL (1.8-2.4); PHOSPHOROUS 3.5 mg/dL (2.5-4.9); POTASSIUM 3.8 mmol/L (3.5-5.1); SODIUM 141 mmol/L (136-145)
[2018-04-28 08:56] LABS: BASO % 0.2 % (0-2.0); EOS % 0.5 % (0-4.5); HEMATOCRIT 35.8 % (35.4-49); HEMOGLOBIN 11.5 GM/dL (11.7-16.9); LYMPH % 10.1 % (8-40); MCH 29.4 pg (25.7-33.7); MCHC 32.1 g/dl (32.0-35.9); MEAN CELL VOLUME 91.6 fl (80-96); MEAN PLT VOLUME 8.8 fl (7.5-11.1); NEUT % 82.2 % (42.8-82.8); PLATELET COUNT 86 K/MM3 (134-434); RBC 3.91 M/mm3 (4.00-5.60); RDW 18.5 % (11.9-15.9); WHITE BLOOD COUNT 4.4 K/mm3 (4.0-10.0)
[2018-04-28] MEDS: LORATADINE 10 MG TABLET PO SCH (10:00)
[2018-04-28] MEDS ORDERED: PIPERACILLIN/TAZOB 3.375 GM 3.375 GM in DEXTROSE 5%-WATER - 50 ML IVPB SCH (10:00)
[2018-04-28] MEDS: metoPROLOL SUCCINATE 25 MG TAB.SR.24H (FP) PO SCH (10:00)
[2018-04-28] MEDS ORDERED: CYANOCOBALAMIN (VITAMIN B-12) 100 MCG TABLET PO SCH (10:00)
[2018-04-28] MEDS: ASPIRIN 325 MG ENTERIC COATED TABLET (FP) PO SCH (10:00)
[2018-04-28] MEDS: LOSARTAN POTASSIUM 25 MG TABLET PO SCH (10:00)
[2018-04-28] MEDS: CALCIUM 250MG/VIT-D 125 UNITS 1 COMBO TABLET PO SCH (10:00)
[2018-04-28] MEDS: MULTIVITAMINS (DAILY MVI) TABLET (FP) PO SCH (10:00)
[2018-04-28] MEDS: FLUTICASONE PROP 0.05% 16 GM NASAL SPRAY NS SCH (10:00)
[2018-04-28] MEDS ORDERED: VANCOMYCIN 1 GRAM (PRE-DOCKED) 1,000 MG/250 ML BAG IVPB SCH (10:00)
[2018-04-28] MEDS: azaTHIOprine 50 MG TABLET PO SCH ×2 (10:00→23:05)
--- NOTE | 2018-04-28 12:15 | PN ---
Progress Note (short form) - Note Progress Note: ID Consult dictated Gram Negative bacteremia/ sepsis likely source Hx ESBL Bladder ca s/p ileal conduit Pending c/s empiric meropenem Contact precautions
--- NOTE | 2018-04-28 12:50 | PN ---
Progress Note, Physician Chief Complaint: patient seen in ER admitrted for change in mental status he is awake and alert - Current Medication List Current Medications: Active Medications Acetaminophen (Tylenol -) 650 mg PO Q6H PRN PRN Reason: FEVER Albuterol Sulfate (Ventolin 0.083% Nebulizer Soln -) 1 amp NEB Q6H PRN PRN Reason: SHORT OF BREATH/WHEEZING Aspirin (Ecotrin -) 325 mg PO DAILY [facility] Atorvastatin Calcium (Lipitor -) 40 mg PO HS [facility] Azathioprine (Imuran -) 50 mg PO BID [facility] Calcium/Vitamin D (Oscal 250 Mg+D -) 2 tab PO DAILY [facility] Cyanocobalamin (Vitamin B12 -) 1,000 mcg PO DAILY [facility] Fluticasone Propionate (Flonase -) 2 spray NS DAILY [facility] Meropenem 1 gm/ Dextrose 100 mls @ 200 mls/hr IVPB Q8H-IV [facility] Loratadine (Claritin -) 10 mg PO DAILY [facility] Losartan Potassium (Cozaar -) 25 mg PO DAILY [facility] Mesalamine (Asacol Hd -) 800 mg PO TIDCM [facility] Metoprolol Succinate (Toprol Xl -) 25 mg PO DAILY [facility] Multivitamins/Minerals/Vitamin C (Tab-A-Vit -) 1 tab PO DAILY [facility] Sodium Chloride ([place] Nasal [place] -) 2 spray NS TID PRN PRN Reason: NASAL CONGESTION - Objective Vital Signs: Vital Signs Temperature 98.7 F 04/28/18 07:45 Pulse Rate 93 H 04/28/18 07:45 Respiratory Rate 18 04/28/18 07:45 Blood Pressure 149/77 04/28/18 07:45 O2 Sat by Pulse Oximetry (%) 94 L 04/28/18 07:45 Constitutional: Yes: Calm Neck: Yes: Trachea Midline Cardiovascular: Yes: Regular Rate and Rhythm, S1, S2 Respiratory: Yes: CTA Bilaterally Gastrointestinal: Yes: Normal Bowel Sounds, Soft, Other (ileal conduit) Edema: No Neurological: Yes: Alert, Oriented Labs: CBC, BMP 04/28/18 07:10 04/28/18 07:10 Problem List - Problems (1) Change in mental status Assessment/Plan: secondary to toxic metabolic encephalopathy- bacteremia/uti iv abx Code(s): R41.82 - ALTERED MENTAL STATUS, UNSPECIFIED (2) Bacteremia Assessment/Plan: blood culture pending prelim gram negative bacill iv meropenem t max 101.1 Code(s): R78.81 - BACTEREMIA (3) HLD (hyperlipidemia) Assessment/Plan: statin lipid profile Code(s): E78.5 - HYPERLIPIDEMIA, UNSPECIFIED Qualifiers: Hyperlipidemia type: unspecified Qualified Code(s): E78.5 - Hyperlipidemia , unspecified (4) Complicated UTI (urinary tract infection) Assessment/Plan: pending culutre iv abx Code(s): N39.0 - URINARY TRACT INFECTION, SITE NOT SPECIFIED (5) IBS (irritable bowel syndrome) Assessment/Plan: imuran and asacol Code(s): K58.9 - IRRITABLE BOWEL SYNDROME WITHOUT DIARRHEA (6) HTN (hypertension) Assessment/Plan: metoprolol Code(s): I10 - ESSENTIAL (PRIMARY) HYPERTENSION Qualifiers: Hypertension type: unspecified Qualified Code(s): I10 - Essential (primary ) hypertension
[2018-04-28] MEDS ORDERED: PT OWN MED DRAWER 7, Y5N ONE ×2 (13:30→19:00)
--- NOTE | 2018-04-28 14:05 | CONS ---
INFECTIOUS DISEASE CONSULTATION DATE OF CONSULTATION: DATE OF DICTATION: 04/28/2018 HISTORY OF PRESENT ILLNESS: The patient is a 72-year-old male with a history of bladder cancer, status post ilial conduit, evaluated for positive blood cultures. He was recently hospitalized at [facility] in March, after presenting with altered mental status. His course at that time was significant for positive urine culture ESBL. He received an 8-day course of ertapenem, followed by a several-day history of nitrofurantoin postdischarge. He had been transferred to a [facility] facility postdischarge and later returned home. He was brought to the emergency room, after neighbors found him confused. He was at home with altered mental status and was poorly responsive. In the emergency room, his temperature was 102. CAT scan of the head was negative for acute infarct or bleed. Blood cultures were obtained. He was empirically treated with vancomycin and Zosyn. Blood cultures are now positive for gram-negative rods. At the present time, he is awake and alert. He is oriented. He has no recall for recent events. He states that neighbors found him confused. He has no focal complaint. He denies any chest pain, shortness of breath, cough or sputum production. No abdominal pain. Denies vomiting or diarrhea. No infected skin wounds. PAST MEDICAL HISTORY: Positive for bladder cancer, status post ilial conduit, hypertension, hyperlipidemia. PAST SURGICAL HISTORY: Status post ilial conduit. ALLERGIES: No known allergies. MEDICATIONS: Flonase, Cozaar, Toprol, Lipitor, Imuran, Ecotrin, Lovenox. SOCIAL HISTORY: He lives in the community alone. Former smoker. SYSTEMS REVIEW: Neurologic: As per HPI. Cardiac: Negative chest pain or palpitations. Respiratory: Negative cough or sputum production. Gastrointestinal: Negative vomiting or diarrhea. Genitourinary: As per HPI. LABORATORY DATA: White count 4.4, hematocrit 35.8, platelet count 86. BUN 16, creatinine 0.9. Liver enzymes normal. Urinalysis: 142 white cells. Chest x-ray shows blunting of the left costophrenic angle and no focal infiltrate. PHYSICAL EXAMINATION: General: On exam, he is awake. He is responsive. He is oriented. Vital signs: Temperature is 98.7, T-maximum 102.1, blood pressure 149/77, pulse 93, regular, respirations 18 per minute. Eyes: Sclerae are anicteric. Heart: Heart sounds S1, S2. Lungs: Clear. Abdomen: Soft. No tenderness elicited. There is an ilial conduit with cloudy urine. No suprapubic or flank tenderness. Extremities: Negative for edema. Skin: No heel or sacral decubitus ulcers noted. IMPRESSION: 1. Gram-negative bacteremia/sepsis. Likely a genitourinary source. 2. History of extended-spectrum beta-lactamase in the urine. 3. Bladder cancer, status post ilial conduit. 4. Thrombocytopenia. Possibly secondary to sepsis. PLAN: Await identification of blood isolate. Empiric antibiotic coverage with meropenem 1 g IV piggyback every 8 hours. Contact precautions. Will need imaging studies of the abdomen and pelvis to rule out underlying pathology for his bacteremia. Of note, a CAT scan of the abdomen and pelvis from January 2018 showed [id number] right hydroureteronephrosis, and cirrhosis, as well as cholelithiasis. Thank you for the kind referral. JONO GUERRA M.D. [id number]
[2018-04-28] MEDS: MEROPENEM 1 GM in DEXTROSE 5%-WATER 100 ML IVPB SCH ×2 (15:00→18:59)
--- NOTE | 2018-04-28 16:28 | EKG ---
Test Reason : Blood Pressure : / mmHG Vent. Rate : 078 BPM Atrial Rate : 078 BPM P-R Int : 154 ms QRS Dur : 088 ms QT Int : 362 ms P-R-T Axes : 038 016 003 degrees QTc Int : 412 ms NORMAL SINUS RHYTHM NONSPECIFIC T WAVE ABNORMALITY ABNORMAL ECG WHEN COMPARED WITH ECG OF 31-MAR-2018 09:21, NO SIGNIFICANT CHANGE WAS FOUND Confirmed by MD Puente Edward ([id number]) on 04/28/2018 4:28:20 PM Referred By: Confirmed By:Spenser Puente MD
[2018-04-28] MEDS ORDERED: ATORVASTATIN CA 40 MG TABLET (FP) ONE (22:10)
[2018-04-28] MEDS: ATORVASTATIN CA 40 MG TABLET (FP) PO SCH (23:05)
[2018-04-29] MEDS: MEROPENEM 1 GM in DEXTROSE 5%-WATER 100 ML IVPB SCH ×3 (03:19→17:59)
[2018-04-29] MEDS: MESALAMINE 800 MG TABLET.DR PO SCH ×3 (08:05→17:59)
--- NOTE | 2018-04-29 09:00 | PN ---
Progress Note, Physician Chief Complaint: AWAKE ALERT SEEN IN ED EVENTS AND NOTES REVIEWED - Current Medication List Current Medications: Active Medications Acetaminophen (Tylenol -) 650 mg PO Q6H PRN PRN Reason: FEVER Albuterol Sulfate (Ventolin 0.083% Nebulizer Soln -) 1 amp NEB Q6H PRN PRN Reason: SHORT OF BREATH/WHEEZING Aspirin (Ecotrin -) 325 mg PO DAILY [facility] Last Admin: 04/28/18 10:00 Dose: 325 mg Atorvastatin Calcium (Lipitor -) 40 mg PO HS [facility] Last Admin: 04/28/18 23:05 Dose: 40 mg Azathioprine (Imuran -) 50 mg PO BID [facility] Last Admin: 04/28/18 23:05 Dose: 50 mg Calcium/Vitamin D (Oscal 250 Mg+D -) 2 tab PO DAILY [facility] Last Admin: 04/28/18 10:00 Dose: 2 tab Cyanocobalamin (Vitamin B12 -) 1,000 mcg PO DAILY [facility] Fluticasone Propionate (Flonase -) 2 spray NS DAILY [facility] Last Admin: 04/28/18 10:00 Dose: Not Given Meropenem 1 gm/ Dextrose 100 mls @ 200 mls/hr IVPB Q8H-IV [facility] Last Admin: 04/29/18 03:19 Dose: 200 mls/hr Loratadine (Claritin -) 10 mg PO DAILY [facility] Last Admin: 04/28/18 10:00 Dose: 10 mg Losartan Potassium (Cozaar -) 25 mg PO DAILY [facility] Last Admin: 04/28/18 10:00 Dose: 25 mg Mesalamine (Asacol Hd -) 800 mg PO TIDCM [facility] Last Admin: 04/28/18 18:00 Dose: 800 mg Metoprolol Succinate (Toprol Xl -) 25 mg PO DAILY [facility] Last Admin: 04/28/18 10:00 Dose: 25 mg Multivitamins/Minerals/Vitamin C (Tab-A-Vit -) 1 tab PO DAILY [facility] Last Admin: 04/28/18 10:00 Dose: 1 tab Sodium Chloride ([place] Nasal [place] -) 2 spray NS TID PRN PRN Reason: NASAL CONGESTION - Objective Vital Signs: Vital Signs Temperature 99.2 F 04/29/18 05:59 Pulse Rate 75 04/29/18 05:59 Respiratory Rate 18 04/29/18 05:59 Blood Pressure 123/80 04/29/18 05:59 O2 Sat by Pulse Oximetry (%) 97 04/29/18 05:59 Constitutional: Yes: Mild Distress Eyes: Yes: WNL HENT: Yes: WNL Neck: Yes: WNL Cardiovascular: Yes: WNL Respiratory: Yes: WNL Gastrointestinal: Yes: WNL Genitourinary: Yes: Other (ILEAL CONDUIT) Musculoskeletal: Yes: Muscle Weakness Extremities: Yes: Other Edema: No Peripheral Pulses WNL: Yes Integumentary: Yes: Other Wound/Incision: Yes: Other Neurological: Yes: Pre-Existing Deficit, Unsteady Gait ...Motor Strength: LLE, RLE Psychiatric: Yes: WNL Labs: CBC, BMP 04/28/18 07:10 04/28/18 07:10 Problem List - Problems (1) Syncope Code(s): R55 - SYNCOPE AND COLLAPSE (2) Bacteremia Code(s): R78.81 - BACTEREMIA (3) Change in mental status Code(s): R41.82 - ALTERED MENTAL STATUS, UNSPECIFIED (4) Complicated UTI (urinary tract infection) Code(s): N39.0 - URINARY TRACT INFECTION, SITE NOT SPECIFIED (5) Toxic metabolic encephalopathy Code(s): G92 - TOXIC ENCEPHALOPATHY (6) Transient alteration of awareness Code(s): R40.4 - TRANSIENT ALTERATION OF AWARENESS (7) Unsteady gait Code(s): R26.81 - UNSTEADINESS ON FEET Assessment/Plan IV ABX ID CONSULT SYNCOPE AND FALL NEEDS CARDIO/TELE ESBL URINE WITH TOXIC METABOLIC ENCEPHALOPATHY PT EVAL
[2018-04-29] MEDS: CALCIUM 250MG/VIT-D 125 UNITS 1 COMBO TABLET PO SCH (10:19)
[2018-04-29] MEDS: ASPIRIN 325 MG ENTERIC COATED TABLET (FP) PO SCH (10:19)
[2018-04-29] MEDS: CYANOCOBALAMIN 1,000 MCG TABLET (FP) PO SCH (10:19)
[2018-04-29] MEDS: azaTHIOprine 50 MG TABLET PO SCH (10:19)
[2018-04-29] MEDS: FLUTICASONE PROP 0.05% 16 GM NASAL SPRAY NS SCH (10:19)
[2018-04-29] MEDS: LORATADINE 10 MG TABLET PO SCH (10:19)
[2018-04-29] MEDS: MULTIVITAMINS (DAILY MVI) TABLET (FP) PO SCH (10:19)
[2018-04-29] MEDS: metoPROLOL SUCCINATE 25 MG TAB.SR.24H (FP) PO SCH (10:50)
[2018-04-29] MEDS: LOSARTAN POTASSIUM 25 MG TABLET PO SCH (10:50)
--- NOTE | 2018-04-29 11:35 | EKG ---
Test Reason : Blood Pressure : / mmHG Vent. Rate : 070 BPM Atrial Rate : 070 BPM P-R Int : 152 ms QRS Dur : 084 ms QT Int : 354 ms P-R-T Axes : 042 009 015 degrees QTc Int : 382 ms NORMAL SINUS RHYTHM NONSPECIFIC T WAVE ABNORMALITY ABNORMAL ECG WHEN COMPARED WITH ECG OF 27-APR-2018 22:22, NO SIGNIFICANT CHANGE WAS FOUND Confirmed by SARMAD HONG MD ([id number]) on 04/29/2018 11:35:18 AM Referred By: Confirmed By:SARMAD HONG MD
--- NOTE | 2018-04-29 11:50 | CON.CARD ---
Cardiology Consult (text) - Consultation Consultation Note: - Consultation Consultation Note: - History of Present Illness Chief Complaint: alt mental status, syncope History of Present Illness: 72M h/o HTN, HLD, colitis, TIA (no residual deficits) p/w alt mental status. No cp sob palps dizzy loc pnd orthopnea le edema. Found to have uti/sepsis. Sees dr sibley for cardio. While in ER noted to be weak, diaphoretic and felt like he was going to pass out when standing for prolonged period this morning while standing talking with staff. 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 Cardio/Vascular: Yes: HTN, Hyperlipdemia Gastrointestinal: Yes: Inflamatory Bowel Disease Renal/: Yes: BPH, UTI, Other (SEE ABOVE) Endocrine: Yes: Diabetes Mellitus - Past Surgical History Past Surgical History: Yes: Cataract Removal - Alcohol/Substance Use Hx Alcohol Use: No - Smoking History Smoking history: Unknown if ever smoked Have you smoked in the past 12 months: No Aproximately how many cigarettes per day: 10 If you are a former smoker, when did you quit?: 1989 Home Medications - Allergies Allergies/Adverse Reactions: Allergies Allergy/AdvReac Type Severity Reaction Status Date / Time No Known Allergies Allergy Verified 04/27/18 20:16 - Home Medications Home Medications Medication Instructions Recorded Cyanocobalamin [Vitamin B12 -] 1,000 mg PO DAILY 03/09/15 Multivitamins [Multivit ([facility] 1 tab PO DAILY 04/19/15 Formulary)] Calcium 250Mg/Vit-D 125 Units 2 combo PO DAILY #60 tablet 05/10/15 [Oscal 250 mg+D -] Losartan Potassium [Cozaar -] 25 mg PO DAILY tablet 01/18/18 Metoprolol Succinate [Toprol XL -] 25 mg PO DAILY tab.sr.24h 01/18/18 Atorvastatin Ca [Lipitor] 40 mg PO DAILY 03/23/18 Azathioprine [Imuran -] 50 mg PO BID 03/23/18 Mesalamine 1.2 gm PO BID 03/23/18 Aspirin Coated [Ecotrin -] 325 mg PO DAILY 03/24/18 Acetaminophen [Tylenol .Regular 650 mg PO Q6H PRN tablet 03/31/18 Strength -] Albuterol 0.083% Nebulizer [place] 1 amp NEB Q6H PRN amp 03/31/18 [Ventolin 0.083% Nebulizer Soln -] Enoxaparin [Lovenox -] 40 mg SQ DAILY disp.syrin 03/31/18 Fluticasone Prop 0.05% Nasal 2 spray NS DAILY spray 03/31/18 [Flonase -] Loratadine [Claritin -] 10 mg PO DAILY tablet 03/31/18 Mesalamine [Asacol HD -] 800 mg PO TID tablet.dr 03/31/18 Nitrofurantoin Macrocrystal 50 mg PO Q6HPO 3 Days capsule 03/31/18 [Macrodantin -] Sodium Chloride Nasal [place] [[place] 2 spray NS TID PRN spray 03/31/18 [place] -] Review of Systems - Review of Systems Constitutional: reports: Weakness Eyes: reports: No Symptoms HENT: reports: No Symptoms Neck: reports: No Symptoms Cardiovascular: reports: No Symptoms Respiratory: reports: No Symptoms Gastrointestinal: reports: No Symptoms Neurological: reports: No Symptoms Endocrine: reports: No Symptoms Psychiatric: reports: No Symptoms Vital Signs: Vital Signs Period Temp Pulse Resp BP Sys/Anderson Pulse Ox Last 24 Hr 98.2 F-99.2 F 75-86 18-18 123-135/78-82 97-99 Constitutional: Yes: No Distress, Calm Eyes: Yes: Conjunctiva Clear, EOM Intact HENT: Yes: Atraumatic, Normocephalic Neck: Yes: Supple Respiratory: Yes: Regular, CTA Bilaterally Gastrointestinal: Yes: Normal Bowel Sounds, Soft Renal/: Yes: Other (+ileostomy) Cardiovascular: Yes: Regular Rate and Rhythm JVD: No Heart Sounds: Yes: S1, S2 Edema: No Neurological: Yes: Alert, Oriented Psychiatric: Yes: Alert, Oriented no jaundice diaphoresis Laboratory Tests 04/27/18 04/27/18 04/27/18 20:43 21:45 21:45 WBC 4.9 RBC 3.78 L Hgb 11.4 L Hct 34.3 L D MCV 90.9 MCH 30.2 MCHC 33.2 RDW 18.2 H Plt Count 110 L MPV 9.1 Absolute Neuts (auto) 4.1 Neutrophils % 83.9 H Lymphocytes % 10.0 D Monocytes % 5.6 Eosinophils % 0.3 D Basophils % 0.2 Nucleated RBC % 0 Sodium 139 Potassium 3.8 Chloride 104 Carbon Dioxide 28 Anion Gap 7 L BUN 17 Creatinine 0.9 Creat Clearance w eGFR > 60 POC Glucometer 168.73131 Random Glucose 149 H Calcium 8.6 Phosphorus Magnesium Total Bilirubin 0.8 AST 16 ALT 23 Alkaline Phosphatase 71 Ammonia Creatine Kinase 36 Troponin I < 0.02 Total Protein 7.5 Albumin 3.7 TSH 0.66 D Urine Color Urine Appearance Urine pH Ur Specific [place] Urine Protein Urine Glucose (UA) Urine Ketones Urine Blood Urine Nitrite Urine Bilirubin Urine Urobilinogen Ur Leukocyte Esterase Urine WBC (Auto) Urine RBC (Auto) Ur Epithelial Cells Urine Bacteria Urine Mucus 04/27/18 04/27/18 04/28/18 21:45 23:33 07:10 WBC 4.4 RBC 3.91 L Hgb 11.5 L Hct 35.8 MCV 91.6 MCH 29.4 MCHC 32.1 RDW 18.5 H Plt Count 86 L D MPV 8.8 Absolute Neuts (auto) 3.6 Neutrophils % 82.2 Lymphocytes % 10.1 Monocytes % 7.0 Eosinophils % 0.5 Basophils % 0.2 Nucleated RBC % 0 Sodium Potassium Chloride Carbon Dioxide Anion Gap BUN Creatinine Creat Clearance w eGFR POC Glucometer Random Glucose Calcium Phosphorus Magnesium Total Bilirubin AST ALT Alkaline Phosphatase Ammonia 26.39 Creatine Kinase Troponin I Total Protein Albumin TSH Urine Color Yellow Urine Appearance Slcloudy Urine pH 5.0 Ur Specific [place] 1.013 Urine Protein Negative Urine Glucose (UA) Negative Urine Ketones Negative Urine Blood 1+ H Urine Nitrite Positive Urine Bilirubin Negative Urine Urobilinogen Negative Ur Leukocyte Esterase 3+ H Urine WBC (Auto) 142 Urine RBC (Auto) 8 Ur Epithelial Cells Rare Urine Bacteria Rare Urine Mucus Rare 04/28/18 04/29/18 04/29/18 07:10 09:51 10:52 WBC RBC Hgb Hct MCV MCH MCHC RDW Plt Count MPV Absolute Neuts (auto) Neutrophils % Lymphocytes % Monocytes % Eosinophils % Basophils % Nucleated RBC % Sodium 141 Potassium 3.8 Chloride 103 Carbon Dioxide 28 Anion Gap 9 BUN 16 Creatinine 0.9 Creat Clearance w eGFR > 60 POC Glucometer 186.33437 Random Glucose 122 H Calcium 8.8 Phosphorus 3.5 Magnesium 2.1 Total Bilirubin AST ALT Alkaline Phosphatase Ammonia Creatine Kinase 37 Troponin I < 0.02 Total Protein Albumin TSH Urine Color Urine Appearance Urine pH Ur Specific [place] Urine Protein Urine Glucose (UA) Urine Ketones Urine Blood Urine Nitrite Urine Bilirubin Urine Urobilinogen Ur Leukocyte Esterase Urine WBC (Auto) Urine RBC (Auto) Ur Epithelial Cells Urine Bacteria Urine Mucus Ex stress mibi 10/2014: 5 mins, 30 secs, no ischemia stress echo 10/2016 nonischemic stress test by EKG, mod T, no echo evidence of inducible ischemia, exercised 4:38 min, peak RVSP 71 mmHg, post exercise carotids 09/2016 mild nonobstructive dz Holter 7 days 05/2017 NSR, sinus kalani x3 to low 50s bpm (from 2-7 AM episodes) ecg: sr, nl intervals, lat twis, no sig change prior CXR no acute process echo 01/14/18 nl LV function, no sig valvular abnormalities a/p: 72M h/o HTN, HLD, colitis, TIA (no residual deficits) p/w weakness. alt mental status, uti, sepsis: - alt mental status likely 2/2 UTI, sepsis - on abx per ID, primary near syncope, weakness, diaphoresis: - episode today may be orthostatic in setting of prolonged standing, poor PO intake, sepsis - resolved now, treating sepsis as above - monitoring on tele - has prior episodes of weakness, near syncope - had workup for falls in the past in cardiology clinic including echo, 7 day holter, stress testing, carotids which were unremarkable - currently has loop recorder in place, cont outpt monitoring h/o TIA - continue statin, neuro following HTN: - controlled on metoprolol, losartan, continue HLD: - continue home statin h/o PE - xarelto was stopped and is on aspirin 81 mg daily now
--- NOTE | 2018-04-29 12:22 | PN ---
Progress Note, Physician History of Present Illness: Awake, alert Supine on stretcher Witnessed near- syncopal episode earlier No c/o pain No fever/ chills Temps down Afebrile - Current Medication List Current Medications: Active Medications Acetaminophen (Tylenol -) 650 mg PO Q6H PRN PRN Reason: FEVER Albuterol Sulfate (Ventolin 0.083% Nebulizer Soln -) 1 amp NEB Q6H PRN PRN Reason: SHORT OF BREATH/WHEEZING Aspirin (Ecotrin -) 325 mg PO DAILY [facility] Last Admin: 04/29/18 10:19 Dose: 325 mg Atorvastatin Calcium (Lipitor -) 40 mg PO HS [facility] Last Admin: 04/28/18 23:05 Dose: 40 mg Azathioprine (Imuran -) 50 mg PO BID [facility] Last Admin: 04/29/18 10:19 Dose: 50 mg Calcium/Vitamin D (Oscal 250 Mg+D -) 2 tab PO DAILY [facility] Last Admin: 04/29/18 10:19 Dose: 2 tab Cyanocobalamin (Vitamin B12 -) 1,000 mcg PO DAILY [facility] Last Admin: 04/29/18 10:19 Dose: 1,000 mcg Fluticasone Propionate (Flonase -) 2 spray NS DAILY [facility] Last Admin: 04/29/18 10:19 Dose: 2 spray Meropenem 1 gm/ Dextrose 100 mls @ 200 mls/hr IVPB Q8H-IV [facility] Last Admin: 04/29/18 10:19 Dose: 200 mls/hr Loratadine (Claritin -) 10 mg PO DAILY [facility] Last Admin: 04/29/18 10:19 Dose: 10 mg Losartan Potassium (Cozaar -) 25 mg PO DAILY [facility] Last Admin: 04/28/18 10:00 Dose: 25 mg Mesalamine (Asacol Hd -) 800 mg PO TIDCM [facility] Last Admin: 04/29/18 08:05 Dose: 800 mg Metoprolol Succinate (Toprol Xl -) 25 mg PO DAILY [facility] Last Admin: 04/28/18 10:00 Dose: 25 mg Multivitamins/Minerals/Vitamin C (Tab-A-Vit -) 1 tab PO DAILY [facility] Last Admin: 04/29/18 10:19 Dose: 1 tab Sodium Chloride ([place] Nasal [place] -) 2 spray NS TID PRN PRN Reason: NASAL CONGESTION - Objective Vital Signs: Vital Signs Temperature 98.2 F 04/29/18 09:57 Pulse Rate 86 04/29/18 09:57 Respiratory Rate 18 04/29/18 09:57 Blood Pressure 128/82 04/29/18 09:57 O2 Sat by Pulse Oximetry (%) 98 04/29/18 11:19 Constitutional: Yes: No Distress Eyes: Yes: Conjunctiva Clear Cardiovascular: Yes: Regular Rate and Rhythm, S1, S2 Respiratory: Yes: CTA Bilaterally Gastrointestinal: Yes: Normal Bowel Sounds, Soft, Other (+ ileal conduit). No: Tenderness Labs: CBC, BMP 04/28/18 07:10 04/28/18 07:10 Assessment/Plan Gram Negative bacteremia/ sepsis secondary to Hx ESBL Bladder ca s/p ileal conduit Await c/s Continue meropenem
[2018-04-30] MEDS: ATORVASTATIN CA 40 MG TABLET (FP) PO SCH ×2 (00:02→21:15)
[2018-04-30] MEDS: azaTHIOprine 50 MG TABLET PO SCH ×3 (00:02→21:15)
[2018-04-30] MEDS ORDERED: PT OWN MED DRAWER 7, Y5N ONE ×5 (01:24→21:09)
[2018-04-30] MEDS: MEROPENEM 1 GM in DEXTROSE 5%-WATER 100 ML IVPB SCH ×3 (02:06→18:23)
[2018-04-30 05:23] VITALS: BMI 28.4
[2018-04-30 07:07] LABS: HEMATOCRIT 34.1 % (35.4-49); HEMOGLOBIN 10.9 GM/dL (11.7-16.9); MCH 29.4 pg (25.7-33.7); MCHC 31.9 g/dl (32.0-35.9); MEAN PLT VOLUME 8.8 fl (7.5-11.1); PLATELET COUNT 97 K/MM3 (134-434); RBC 3.71 M/mm3 (4.00-5.60); RDW 18.3 % (11.9-15.9); WHITE BLOOD COUNT 3.2 K/mm3 (4.0-10.0)
[2018-04-30 07:28] LABS: ANION GAP 5 MMOL/L (8-16); BLOOD UREA NITROGEN 29 mg/dL (7-18); CHLORIDE 106 mmol/L (98-107); CO2 31 mmol/L (21-32); CREATININE 0.9 mg/dL (0.55-1.3); GLUCOSE,RANDOM 118 mg/dL (74-106); MAGNESIUM 2.2 mg/dL (1.8-2.4); PHOSPHOROUS 4.1 mg/dL (2.5-4.9); POTASSIUM 4.2 mmol/L (3.5-5.1); SODIUM 141 mmol/L (136-145)
[2018-04-30] MEDS: CYANOCOBALAMIN 1,000 MCG TABLET (FP) PO SCH (09:08)
[2018-04-30] MEDS: CALCIUM 250MG/VIT-D 125 UNITS 1 COMBO TABLET PO SCH (09:08)
[2018-04-30] MEDS: LOSARTAN POTASSIUM 25 MG TABLET PO SCH (09:08)
[2018-04-30] MEDS: metoPROLOL SUCCINATE 25 MG TAB.SR.24H (FP) PO SCH (09:08)
[2018-04-30] MEDS: ASPIRIN 325 MG ENTERIC COATED TABLET (FP) PO SCH (09:09)
[2018-04-30] MEDS: MULTIVITAMINS (DAILY MVI) TABLET (FP) PO SCH (09:09)
[2018-04-30] MEDS: LORATADINE 10 MG TABLET PO SCH (09:09)
[2018-04-30] MEDS: MESALAMINE 800 MG TABLET.DR PO SCH ×3 (09:10→18:23)
[2018-04-30] MEDS: FLUTICASONE PROP 0.05% 16 GM NASAL SPRAY NS SCH (09:13)
--- NOTE | 2018-04-30 09:13 | PN ---
Progress Note, Physician - Current Medication List Current Medications: Active Medications Acetaminophen (Tylenol -) 650 mg PO Q6H PRN PRN Reason: FEVER Albuterol Sulfate (Ventolin 0.083% Nebulizer Soln -) 1 amp NEB Q6H PRN PRN Reason: SHORT OF BREATH/WHEEZING Aspirin (Ecotrin -) 325 mg PO DAILY [facility] Last Admin: 04/29/18 10:19 Dose: 325 mg Atorvastatin Calcium (Lipitor -) 40 mg PO HS [facility] Last Admin: 04/30/18 00:02 Dose: 40 mg Azathioprine (Imuran -) 50 mg PO BID [facility] Last Admin: 04/30/18 00:02 Dose: 50 mg Calcium/Vitamin D (Oscal 250 Mg+D -) 2 tab PO DAILY [facility] Last Admin: 04/29/18 10:19 Dose: 2 tab Cyanocobalamin (Vitamin B12 -) 1,000 mcg PO DAILY [facility] Last Admin: 04/29/18 10:19 Dose: 1,000 mcg Fluticasone Propionate (Flonase -) 2 spray NS DAILY [facility] Last Admin: 04/29/18 10:19 Dose: 2 spray Meropenem 1 gm/ Dextrose 100 mls @ 200 mls/hr IVPB Q8H-IV [facility] Last Admin: 04/30/18 02:06 Dose: 200 mls/hr Loratadine (Claritin -) 10 mg PO DAILY [facility] Last Admin: 04/29/18 10:19 Dose: 10 mg Losartan Potassium (Cozaar -) 25 mg PO DAILY [facility] Last Admin: 04/29/18 10:50 Dose: 25 mg Mesalamine (Asacol Hd -) 800 mg PO TIDCM [facility] Last Admin: 04/29/18 17:59 Dose: 800 mg Metoprolol Succinate (Toprol Xl -) 25 mg PO DAILY [facility] Last Admin: 04/29/18 10:50 Dose: 25 mg Multivitamins/Minerals/Vitamin C (Tab-A-Vit -) 1 tab PO DAILY [facility] Last Admin: 04/29/18 10:19 Dose: 1 tab Sodium Chloride ([place] Nasal [place] -) 2 spray NS TID PRN PRN Reason: NASAL CONGESTION - Objective Vital Signs: Vital Signs Temperature 97.4 F L 04/30/18 06:00 Pulse Rate 62 04/30/18 06:00 Respiratory Rate 20 04/30/18 06:00 Blood Pressure 104/64 04/30/18 06:00 O2 Sat by Pulse Oximetry (%) 95 04/29/18 19:00 Cardiovascular: Yes: S1, S2 Respiratory: Yes: Regular, CTA Bilaterally Gastrointestinal: Yes: Normal Bowel Sounds, Soft Labs: CBC, BMP 04/30/18 06:00 04/30/18 06:00 Problem List - Problems (1) Bacteremia Assessment/Plan: Urine and bc culture pending Microbiology 04/27/18 21:45 Blood Culture - Preliminary Blood - Peripheral Venous NO GROWTH OBTAINED AFTER 48 HOURS, INCUBATION TO CONTINUE FOR 3 DAYS. 04/27/18 23:33 Urine Culture - Preliminary Urine - Urine Clean Catch Lactose Fermenting Neg Bacilli Lactose Fermenting Neg Bacilli#2 Pending Organism 04/27/18 21:45 Blood Culture - Preliminary Blood - Peripheral Venous Lactose Fermenting Neg Bacilli Started on Zosyn, Vancomycin, continue Appreciate ID consult Monitor CBC, BMP Monitor vitals Code(s): N39.0 - URINARY TRACT INFECTION, SITE NOT SPECIFIED Code(s): R78.81 - BACTEREMIA (2) Complicated UTI (urinary tract infection) Code(s): N39.0 - URINARY TRACT INFECTION, SITE NOT SPECIFIED (3) IBS (irritable bowel syndrome) Assessment/Plan: home meds Code(s): K58.9 - IRRITABLE BOWEL SYNDROME WITHOUT DIARRHEA (4) Diabetes Assessment/Plan: controlled BGMs continue home meds Code(s): E11.9 - TYPE 2 DIABETES MELLITUS WITHOUT COMPLICATIONS (5) HTN (hypertension) Assessment/Plan: same meds Code(s): I10 - ESSENTIAL (PRIMARY) HYPERTENSION Qualifiers: Hypertension type: unspecified Qualified Code(s): I10 - Essential (primary ) hypertension (6) Metabolic encephalopathy Assessment/Plan: Improved Likely secondary to UTI Fall precautions Neurochecks Code(s): G93.41 - METABOLIC ENCEPHALOPATHY (7) History of ileal conduit Assessment/Plan: C Stomal Care Appreciate Social Work consult for VNS services for Urostomy care Code(s): Z98.890 - OTHER SPECIFIED POSTPROCEDURAL STATES
--- NOTE | 2018-04-30 11:32 | PN ---
Progress Note (short form) - Note Progress Note: s: no cp sob palps dizzy o: Vital Signs Period Temp Pulse Resp BP Sys/Anderson Pulse Ox Last 24 Hr 97.2 F-98.1 F 61-95 17-20 103-128/61-92 95 Constitutional: Yes: No Distress, Calm Eyes: Yes: Conjunctiva Clear Respiratory: Yes: Regular, CTA Bilaterally Gastrointestinal: Yes: Normal Bowel Sounds, Soft Renal/: Yes: Other (+ileostomy) Cardiovascular: Yes: Regular Rate and Rhythm JVD: No Heart Sounds: Yes: S1, S2 Edema: No Neurological: Yes: Alert, Oriented no jaundice diaphoresis Current Medications Generic Name Dose Route Start Last Admin Trade Name Freq PRN Reason Stop Dose Admin Acetaminophen 650 mg 04/28/18 05:49 Tylenol - PO Q6H PRN FEVER Albuterol Sulfate 1 amp 04/28/18 05:49 Ventolin 0.083% Nebulizer Soln - NEB Q6H PRN SHORT OF BREATH/WHEEZING Aspirin 325 mg 04/28/18 10:00 04/30/18 09:09 Ecotrin - PO 325 mg DAILY [facility] Administration Atorvastatin Calcium 40 mg 04/28/18 22:00 04/30/18 00:02 Lipitor - PO 40 mg HS [facility] Administration Azathioprine 50 mg 04/28/18 10:00 04/30/18 09:10 Imuran - PO 50 mg BID [facility] Administration Calcium/Vitamin D 2 tab 04/28/18 10:00 04/30/18 09:08 Oscal 250 Mg+D - PO 2 tab DAILY [facility] Administration Cyanocobalamin 1,000 mcg 04/29/18 07:39 04/30/18 09:08 Vitamin B12 - PO 1,000 mcg DAILY [facility] Administration Fluticasone Propionate 2 spray 04/28/18 10:00 04/30/18 09:13 Flonase - NS 2 spray DAILY [facility] Administration Meropenem 1 gm/ Dextrose 100 mls @ 200 mls/hr 04/28/18 13:00 04/30/18 11:30 IVPB 200 mls/hr Q8H-IV [facility] Administration Loratadine 10 mg 04/28/18 10:00 04/30/18 09:09 Claritin - PO 10 mg DAILY [facility] Administration Losartan Potassium 25 mg 04/28/18 10:00 11/15/18 09:08 Cozaar - PO 25 mg DAILY [facility] Administration Mesalamine 800 mg 04/28/18 08:00 04/30/18 09:10 Asacol Hd - PO 800 mg TIDCM [facility] Administration Metoprolol Succinate 25 mg 04/28/18 10:00 04/30/18 09:08 Toprol Xl - PO 25 mg DAILY [facility] Administration Multivitamins/Minerals/Vitamin C 1 tab 04/28/18 10:00 04/30/18 09:09 Tab-A-Vit - PO 1 tab DAILY [facility] Administration Sodium Chloride 2 spray 04/28/18 05:49 [place] Nasal [place] - NS TID PRN NASAL CONGESTION Laboratory Last Values WBC 3.2 K/mm3 (4.0-10.0) L 04/30/18 06:00 RBC 3.71 M/mm3 (4.00-5.60) L 04/30/18 06:00 Hgb 10.9 GM/dL (11.7-16.9) L 04/30/18 06:00 Hct 34.1 % (35.4-49) L 04/30/18 06:00 MCV 92.0 fl (80-96) 04/30/18 06:00 MCH 29.4 pg (25.7-33.7) 04/30/18 06:00 MCHC 31.9 g/dl (32.0-35.9) L 04/30/18 06:00 RDW 18.3 % (11.9-15.9) H 04/30/18 06:00 Plt Count 97 K/MM3 (134-434) L 04/30/18 06:00 MPV 8.8 fl (7.5-11.1) 04/30/18 06:00 Absolute Neuts (auto) 3.6 K/mm3 (1.5-8.0) 04/28/18 07:10 Neutrophils % 82.2 % (42.8-82.8) 04/28/18 07:10 Lymphocytes % 10.1 % (8-40) 04/28/18 07:10 Monocytes % 7.0 % (3.8-10.2) 04/28/18 07:10 Eosinophils % 0.5 % (0-4.5) 04/28/18 07:10 Basophils % 0.2 % (0-2.0) 04/28/18 07:10 Nucleated RBC % 0 % (0-0) 04/28/18 07:10 Sodium 141 mmol/L (136-145) 04/30/18 06:00 Potassium 4.2 mmol/L (3.5-5.1) 04/30/18 06:00 Chloride 106 mmol/L (98-107) 04/30/18 06:00 Carbon Dioxide 31 mmol/L (21-32) 04/30/18 06:00 Anion Gap 5 MMOL/L (8-16) L 04/30/18 06:00 BUN 29 mg/dL (7-18) H 04/30/18 06:00 Creatinine 0.9 mg/dL (0.55-1.3) 04/30/18 06:00 Creat Clearance w eGFR > 60 (>60) 04/30/18 06:00 POC Glucometer 186.24205 UNITS (80-120) 04/29/18 09:51 Random Glucose 118 mg/dL (74-106) H 04/30/18 06:00 Calcium 9.0 mg/dL (8.5-10.1) 04/30/18 06:00 Phosphorus 4.1 mg/dL (2.5-4.9) 04/30/18 06:00 Magnesium 2.2 mg/dL (1.8-2.4) 04/30/18 06:00 Total Bilirubin 0.8 mg/dL (0.2-1) 04/27/18 21:45 AST 16 U/L (15-37) 04/27/18 21:45 ALT 23 U/L (13-61) 04/27/18 21:45 Alkaline Phosphatase 71 U/L (45-117) 04/27/18 21:45 Ammonia 26.39 umol/L (11-32) 04/27/18 21:45 Creatine Kinase 37 IU/L (26-308) 04/29/18 10:52 Troponin I < 0.02 ng/ml (0.00-0.05) 04/29/18 10:52 Total Protein 7.5 g/dl (6.4-8.2) 04/27/18 21:45 Albumin 3.7 g/dl (3.4-5.0) 04/27/18 21:45 TSH 0.66 uIU/ml (0.358-3.74) D 04/27/18 21:45 Urine Color Yellow 04/27/18 23: Urine Appearance Slcloudy 04/27/18 23: Urine pH 5.0 (5.0-8.0) 04/27/18 23: Ur Specific [place] 1.013 (1.010-1.035) 04/27/18 23: Urine Protein Negative (NEGATIVE) 04/27/18: Urine Glucose (UA) Negative (NEGATIVE) 04/27/18: Urine Ketones Negative (NEGATIVE) 04/27/18: Urine Blood 1+ (NEGATIVE) H 04/27/18: Urine Nitrite Positive (NEGATIVE) 04/27/18: Urine Bilirubin Negative (<2.0 mg/dL) 04/27/18: Urine Urobilinogen Negative mg/dL (0.2-1.0) 04/27/18: Ur Leukocyte Esterase 3+ (NEGATIVE) H 04/27/18: Urine WBC (Auto) 142 /hpf (3-5) 04/27/18: Urine RBC (Auto) 8 /hpf (0-3) 04/27/18: Ur Epithelial Cells Rare /HPF (FEW) 04/27/18: Urine Bacteria Rare /hpf (NONE SEEN) 04/27/18: Urine Mucus Rare 04/27/18: Ex stress mibi 10/2014: 5 mins, 30 secs, no ischemia stress echo 10/2016 nonischemic stress test by EKG, mod T, no echo evidence of inducible ischemia, exercised 4:38 min, peak RVSP 71 mmHg, post exercise carotids 09/2016 mild nonobstructive dz Holter 7 days 05/2017 NSR, sinus kalani x3 to low 50s bpm (from 2-7 AM episodes) ecg: sr, nl intervals, lat twis, no sig change prior CXR no acute process echo 01/14/18 nl LV function, no sig valvular abnormalities tele: sr, occ pvcs, brief atrial run a/p: 72M h/o HTN, HLD, colitis, TIA (no residual deficits) p/w weakness. alt mental status, uti, sepsis: - alt mental status likely 2/2 UTI, sepsis - on abx per ID, primary near syncope, weakness, diaphoresis: - episode today may be orthostatic in setting of prolonged standing, poor PO intake, sepsis - resolved now, treating sepsis as above - tele benign - has prior episodes of weakness, near syncope - had workup for falls in the past in cardiology clinic including echo, 7 day holter, stress testing, carotids which were unremarkable - currently has loop recorder in place, cont outpt monitoring h/o TIA - continue statin, neuro following HTN: - controlled on metoprolol, losartan, continue HLD: - continue home statin h/o PE - xarelto was stopped and is on aspirin 81 mg daily now cardiac tapia stable
--- NOTE | 2018-04-30 15:15 | PN ---
Progress Note, Physician History of Present Illness: Awake, alert Supine in bed No c/o pain No fever/ chills Temps down Afebrile Leukopenic ? imuran - Current Medication List Current Medications: Active Medications Acetaminophen (Tylenol -) 650 mg PO Q6H PRN PRN Reason: FEVER Albuterol Sulfate (Ventolin 0.083% Nebulizer Soln -) 1 amp NEB Q6H PRN PRN Reason: SHORT OF BREATH/WHEEZING Aspirin (Ecotrin -) 325 mg PO DAILY [facility] Last Admin: 04/30/18 09:09 Dose: 325 mg Atorvastatin Calcium (Lipitor -) 40 mg PO HS [facility] Last Admin: 04/30/18 00:02 Dose: 40 mg Azathioprine (Imuran -) 50 mg PO BID [facility] Last Admin: 04/30/18 09:10 Dose: 50 mg Calcium/Vitamin D (Oscal 250 Mg+D -) 2 tab PO DAILY [facility] Last Admin: 04/30/18 09:08 Dose: 2 tab Cyanocobalamin (Vitamin B12 -) 1,000 mcg PO DAILY [facility] Last Admin: 04/30/18 09:08 Dose: 1,000 mcg Fluticasone Propionate (Flonase -) 2 spray NS DAILY [facility] Last Admin: 04/30/18 09:13 Dose: 2 spray Meropenem 1 gm/ Dextrose 100 mls @ 200 mls/hr IVPB Q8H-IV [facility] Last Admin: 04/30/18 11:30 Dose: 200 mls/hr Loratadine (Claritin -) 10 mg PO DAILY [facility] Last Admin: 04/30/18 09:09 Dose: 10 mg Losartan Potassium (Cozaar -) 25 mg PO DAILY [facility] Last Admin: 04/30/18 09:08 Dose: 25 mg Mesalamine (Asacol Hd -) 800 mg PO TIDCM [facility] Last Admin: 04/30/18 11:35 Dose: 800 mg Metoprolol Succinate (Toprol Xl -) 25 mg PO DAILY [facility] Last Admin: 04/30/18 09:08 Dose: 25 mg Multivitamins/Minerals/Vitamin C (Tab-A-Vit -) 1 tab PO DAILY [facility] Last Admin: 04/30/18 09:09 Dose: 1 tab Sodium Chloride ([place] Nasal [place] -) 2 spray NS TID PRN PRN Reason: NASAL CONGESTION - Objective Vital Signs: Vital Signs Temperature 97.4 F L 04/30/18 06:00 Pulse Rate 62 04/30/18 06:00 Respiratory Rate 20 04/30/18 06:00 Blood Pressure 104/64 04/30/18 06:00 O2 Sat by Pulse Oximetry (%) 95 04/29/18 19:00 Constitutional: Yes: No Distress Eyes: Yes: Conjunctiva Clear Cardiovascular: Yes: Regular Rate and Rhythm, S1, S2 Respiratory: Yes: CTA Bilaterally Gastrointestinal: Yes: Normal Bowel Sounds, Soft. No: Tenderness Genitourinary: Yes: Other (+ ileal conduit) Labs: CBC, BMP 04/30/18 06:00 04/30/18 06:00 Assessment/Plan Gram Negative bacteremia/ sepsis secondary to Hx ESBL Bladder ca s/p ileal conduit Continue meropenem CT A/P R/O obstructive uropathy
[2018-05-01] MEDS ORDERED: PT OWN MED DRAWER 7, Y5N ONE ×3 (01:15→21:21)
[2018-05-01] MEDS: MEROPENEM 1 GM in DEXTROSE 5%-WATER 100 ML IVPB SCH ×3 (02:15→17:40)
--- NOTE | 2018-05-01 10:09 | PN ---
Progress Note, Physician - Current Medication List Current Medications: Active Medications Acetaminophen (Tylenol -) 650 mg PO Q6H PRN PRN Reason: FEVER Albuterol Sulfate (Ventolin 0.083% Nebulizer Soln -) 1 amp NEB Q6H PRN PRN Reason: SHORT OF BREATH/WHEEZING Aspirin (Ecotrin -) 325 mg PO DAILY [facility] Last Admin: 04/30/18 09:09 Dose: 325 mg Atorvastatin Calcium (Lipitor -) 40 mg PO HS [facility] Last Admin: 04/30/18 21:15 Dose: 40 mg Azathioprine (Imuran -) 50 mg PO BID [facility] Last Admin: 04/30/18 21:15 Dose: 50 mg Calcium/Vitamin D (Oscal 250 Mg+D -) 2 tab PO DAILY [facility] Last Admin: 04/30/18 09:08 Dose: 2 tab Cyanocobalamin (Vitamin B12 -) 1,000 mcg PO DAILY [facility] Last Admin: 04/30/18 09:08 Dose: 1,000 mcg Fluticasone Propionate (Flonase -) 2 spray NS DAILY [facility] Last Admin: 04/30/18 09:13 Dose: 2 spray Meropenem 1 gm/ Dextrose 100 mls @ 200 mls/hr IVPB Q8H-IV [facility] Last Admin: 05/01/18 02:15 Dose: 200 mls/hr Loratadine (Claritin -) 10 mg PO DAILY [facility] Last Admin: 04/30/18 09:09 Dose: 10 mg Losartan Potassium (Cozaar -) 25 mg PO DAILY [facility] Last Admin: 04/30/18 09:08 Dose: 25 mg Mesalamine (Asacol Hd -) 800 mg PO TIDCM [facility] Last Admin: 04/30/18 18:23 Dose: 800 mg Metoprolol Succinate (Toprol Xl -) 25 mg PO DAILY [facility] Last Admin: 04/30/18 09:08 Dose: 25 mg Multivitamins/Minerals/Vitamin C (Tab-A-Vit -) 1 tab PO DAILY [facility] Last Admin: 04/30/18 09:09 Dose: 1 tab Sodium Chloride ([place] Nasal [place] -) 2 spray NS TID PRN PRN Reason: NASAL CONGESTION - Objective Vital Signs: Vital Signs Temperature 97.8 F 05/01/18 06:00 Pulse Rate 59 L 05/01/18 06:00 Respiratory Rate 18 05/01/18 06:00 Blood Pressure 116/63 05/01/18 06:00 O2 Sat by Pulse Oximetry (%) 96 04/30/18 21:00 Cardiovascular: Yes: S1, S2 Respiratory: Yes: Regular, CTA Bilaterally Gastrointestinal: Yes: Normal Bowel Sounds, Soft Labs: CBC, BMP 04/30/18 06:00 04/30/18 06:00 Problem List - Problems (1) Bacteremia Assessment/Plan: Urine and bc culture pending Microbiology 04/27/18 21:45 Blood Culture - Preliminary Blood - Peripheral Venous NO GROWTH OBTAINED AFTER 48 HOURS, INCUBATION TO CONTINUE FOR 3 DAYS. 04/27/18 23:33 Urine Culture - Preliminary Urine - Urine Clean Catch Lactose Fermenting Neg Bacilli Lactose Fermenting Neg Bacilli#2 Pending Organism 04/27/18 21:45 Blood Culture - Preliminary Blood - Peripheral Venous Lactose Fermenting Neg Bacilli Started on Zosyn, Vancomycin, continue Appreciate ID consult Monitor CBC, BMP Monitor vitals D/W DR GUERRA NEEDS PICC LINE --14 DAYS TOTAL ABX Code(s): R78.81 - BACTEREMIA (2) Complicated UTI (urinary tract infection) Assessment/Plan: as above Code(s): N39.0 - URINARY TRACT INFECTION, SITE NOT SPECIFIED (3) IBS (irritable bowel syndrome) Assessment/Plan: home meds Code(s): K58.9 - IRRITABLE BOWEL SYNDROME WITHOUT DIARRHEA (4) Diabetes Assessment/Plan: controlled BGMs continue home meds Code(s): E11.9 - TYPE 2 DIABETES MELLITUS WITHOUT COMPLICATIONS (5) HTN (hypertension) Assessment/Plan: same meds Code(s): I10 - ESSENTIAL (PRIMARY) HYPERTENSION Qualifiers: Hypertension type: unspecified Qualified Code(s): I10 - Essential (primary ) hypertension (6) Metabolic encephalopathy Assessment/Plan: Improved Likely secondary to UTI Fall precautions Neurochecks Code(s): G93.41 - METABOLIC ENCEPHALOPATHY (7) History of ileal conduit Assessment/Plan: C Stomal Care Appreciate Social Work consult for VNS services for Urostomy care Code(s): Z98.890 - OTHER SPECIFIED POSTPROCEDURAL STATES (8) Hydronephrosis Assessment/Plan: -Urology Consult Code(s): N13.30 - UNSPECIFIED HYDRONEPHROSIS
[2018-05-01] MEDS: MULTIVITAMINS (DAILY MVI) TABLET (FP) PO SCH (10:47)
[2018-05-01] MEDS: CYANOCOBALAMIN 1,000 MCG TABLET (FP) PO SCH (10:47)
[2018-05-01] MEDS: MESALAMINE 800 MG TABLET.DR PO SCH ×3 (10:48→17:40)
[2018-05-01] MEDS: azaTHIOprine 50 MG TABLET PO SCH ×2 (10:48→21:24)
[2018-05-01] MEDS: CALCIUM 250MG/VIT-D 125 UNITS 1 COMBO TABLET PO SCH (10:49)
[2018-05-01] MEDS: LOSARTAN POTASSIUM 25 MG TABLET PO SCH (10:49)
[2018-05-01] MEDS: ASPIRIN 325 MG ENTERIC COATED TABLET (FP) PO SCH (10:49)
[2018-05-01] MEDS: LORATADINE 10 MG TABLET PO SCH (10:49)
[2018-05-01] MEDS: metoPROLOL SUCCINATE 25 MG TAB.SR.24H (FP) PO SCH (10:49)
[2018-05-01] MEDS: FLUTICASONE PROP 0.05% 16 GM NASAL SPRAY NS SCH (10:50)
--- NOTE | 2018-05-01 11:22 | PN ---
Progress Note (short form) - Note Progress Note: s: no cp sob palps dizzy o: Vital Signs Period Temp Pulse Resp BP Sys/Anderson Pulse Ox Last 24 Hr 97.8 F-98.1 F 59-68 18-18 116-127/63-71 96 Constitutional: Yes: No Distress, Calm Eyes: Yes: Conjunctiva Clear Respiratory: Yes: Regular, CTA Bilaterally Gastrointestinal: Yes: Normal Bowel Sounds, Soft Renal/: Yes: Other (+ileostomy) Cardiovascular: Yes: Regular Rate and Rhythm JVD: No Heart Sounds: Yes: S1, S2 Edema: No Neurological: Yes: Alert, Oriented no jaundice diaphoresis Current Medications Generic Name Dose Route Start Last Admin Trade Name Freq PRN Reason Stop Dose Admin Acetaminophen 650 mg 04/28/18 05:49 Tylenol - PO Q6H PRN FEVER Albuterol Sulfate 1 amp 04/28/18 05:49 Ventolin 0.083% Nebulizer Soln - NEB Q6H PRN SHORT OF BREATH/WHEEZING Aspirin 325 mg 04/28/18 10:00 05/01/18 10:49 Ecotrin - PO 325 mg DAILY [facility] Administration Atorvastatin Calcium 40 mg 04/28/18 22:00 04/30/18 21:15 Lipitor - PO 40 mg HS [facility] Administration Azathioprine 50 mg 04/28/18 10:00 05/01/18 10:48 Imuran - PO 50 mg BID [facility] Administration Calcium/Vitamin D 2 tab 04/28/18 10:00 05/01/18 10:49 Oscal 250 Mg+D - PO 2 tab DAILY [facility] Administration Cyanocobalamin 1,000 mcg 04/29/18 07:39 05/01/18 10:47 Vitamin B12 - PO 1,000 mcg DAILY [facility] Administration Fluticasone Propionate 2 spray 04/28/18 10:00 05/01/18 10:50 Flonase - NS 2 spray DAILY [facility] Administration Meropenem 1 gm/ Dextrose 100 mls @ 200 mls/hr 04/28/18 13:00 05/01/18 10:45 IVPB 200 mls/hr Q8H-IV [facility] Administration Loratadine 10 mg 04/28/18 10:00 05/01/18 10:49 Claritin - PO 10 mg DAILY [facility] Administration Losartan Potassium 25 mg 04/28/18 10:00 05/01/18 10:49 Cozaar - PO 25 mg DAILY [facility] Administration Mesalamine 800 mg 04/28/18 08:00 05/01/18 10:48 Asacol Hd - PO 800 mg TIDCM [facility] Administration Metoprolol Succinate 25 mg 04/28/18 10:00 05/01/18 10:49 Toprol Xl - PO 25 mg DAILY [facility] Administration Multivitamins/Minerals/Vitamin C 1 tab 04/28/18 10:00 05/01/18 10:47 Tab-A-Vit - PO 1 tab DAILY [facility] Administration Sodium Chloride 2 spray 04/28/18 05:49 [place] Nasal [place] - NS TID PRN NASAL CONGESTION CBC, BMP 04/30/18 06:00 04/30/18 06:00 Ex stress mibi 10/2014: 5 mins, 30 secs, no ischemia stress echo 10/2016 nonischemic stress test by EKG, mod T, no echo evidence of inducible ischemia, exercised 4:38 min, peak RVSP 71 mmHg, post exercise carotids 09/2016 mild nonobstructive dz Holter 7 days 05/2017 NSR, sinus kalani x3 to low 50s bpm (from 2-7 AM episodes) ecg: sr, nl intervals, lat twis, no sig change prior CXR no acute process echo 01/14/18 nl LV function, no sig valvular abnormalities tele: sr, occ pvcs a/p: 72M h/o HTN, HLD, colitis, TIA (no residual deficits) p/w weakness. alt mental status, uti, sepsis: - alt mental status likely 2/2 UTI, sepsis - on abx per ID, primary near syncope, weakness, diaphoresis: - episode today may be orthostatic in setting of prolonged standing, poor PO intake, sepsis - resolved now, treating sepsis as above - tele benign - has prior episodes of weakness, near syncope - had workup for falls in the past in cardiology clinic including echo, 7 day holter, stress testing, carotids which were unremarkable - currently has loop recorder in place, cont outpt monitoring h/o TIA - continue statin, neuro following HTN: - controlled on metoprolol, losartan, continue HLD: - continue home statin h/o PE - xarelto was stopped and is on aspirin 81 mg daily now cardiac tapia stable, dc tele
--- NOTE | 2018-05-01 13:03 | CON.GU ---
Consult - History of Present Illness History of Present Illness: 72 yo male with h/o bladder CA s/p cystectomy/ileal conduit. Has had several admissions for uti that present with AMS. CT scan shows rt hydro, unchanged from prior imaging. His Urologist is in [facility] - Past Medical History [employer]: Yes: TIA Cardio/Vascular: Yes: HTN, Hyperlipdemia Gastrointestinal: Yes: Inflamatory Bowel Disease Renal/: Yes: BPH, Cancer (Prostate), UTI, Other (SEE ABOVE) Endocrine: Yes: Diabetes Mellitus - Past Surgical History Past Surgical History: Yes: Cataract Removal, Ileosotomy - Alcohol/Substance Use Hx Alcohol Use: No History of Substance Use: reports: None - Smoking History Smoking history: Former smoker Have you smoked in the past 12 months: No Aproximately how many cigarettes per day: 10 If you are a former smoker, when did you quit?: 1989 - Social History Usual Living Arrangement: Alone (lives alone in apartment with 2 steps to enter) ADL: Independent (previously Independent in ADLs without AD) History of Recent Travel: No Home Medications - Allergies Allergies/Adverse Reactions: Allergies Allergy/AdvReac Type Severity Reaction Status Date / Time No Known Allergies Allergy Verified 04/27/18 20:16 - Home Medications Home Medications: Ambulatory Orders Cyanocobalamin [Vitamin B12 -] 1,000 mg PO DAILY 03/09/15 Multivitamins [Multivit ([facility] Formul[facility])] 1 tab PO DAILY 04/19/15 Calcium 250Mg/Vit-D 125 Units [Oscal 250 mg+D -] 2 combo PO DAILY #60 tablet Losartan Potassium [Cozaar -] 25 mg PO DAILY tablet 01/18/18 Metoprolol Succinate [Toprol XL -] 25 mg PO DAILY tab.sr.24h 01/18/18 Atorvastatin Ca [Lipitor] 40 mg PO DAILY 03/23/18 Azathioprine [Imuran -] 50 mg PO BID 03/23/18 Mesalamine 1.2 gm PO BID 03/23/18 Aspirin Coated [Ecotrin -] 325 mg PO DAILY 03/24/18 Acetaminophen [Tylenol .Regular Strength -] 650 mg PO Q6H PRN tablet 03/31/18 Albuterol 0.083% Nebulizer [place] [Ventolin 0.083% Nebulizer Soln -] 1 amp NEB Q6H PRN amp 03/31/18 Enoxaparin [Lovenox -] 40 mg SQ DAILY disp.syrin 03/31/18 Fluticasone Prop 0.05% Nasal [Flonase -] 2 spray NS DAILY spray 03/31/18 Loratadine [Claritin -] 10 mg PO DAILY tablet 03/31/18 Mesalamine [Asacol HD -] 800 mg PO TID tablet. 03/31/18 Nitrofurantoin Macrocrystal [Macrodantin -] 50 mg PO Q6HPO 3 Days capsule 03/31 Sodium Chloride Nasal [place] [[place] Nasal [place] -] 2 spray NS TID PRN spray 03/31/18 Physical Exam- Vital Signs: Vital Signs Temperature 97.5 F L 05/01/18 11:51 Pulse Rate 74 05/01/18 11:51 Respiratory Rate 18 05/01/18 11:51 Blood Pressure 136/71 05/01/18 11:51 O2 Sat by Pulse Oximetry (%) 98 05/01/18 10:00 Renal/: Yes: Other (conduit stoma pink) Labs: CBC, BMP 04/30/18 06:00 04/30/18 06:00 Imaging - Results Cat Scan: Report Reviewed Problem List - Problems (1) Complicated UTI (urinary tract infection) Assessment/Plan: Abx as ordered while awaiting cultures. Rt hydronephrosis not uncommon in this setting. No intervention necessary at this time. I have recommended that he f/u with his urologist for further w/u Code(s): N39.0 - URINARY TRACT INFECTION, SITE NOT SPECIFIED
--- NOTE | 2018-05-01 15:08 | PN ---
Progress Note, Physician History of Present Illness: Awake, alert, Ambulatory No c/o pain No fever/ chills Temps down Afebrile Leukopenic ? imuran - Current Medication List Current Medications: Active Medications Acetaminophen (Tylenol -) 650 mg PO Q6H PRN PRN Reason: FEVER Albuterol Sulfate (Ventolin 0.083% Nebulizer Soln -) 1 amp NEB Q6H PRN PRN Reason: SHORT OF BREATH/WHEEZING Aspirin (Ecotrin -) 325 mg PO DAILY [facility] Last Admin: 05/01/18 10:49 Dose: 325 mg Atorvastatin Calcium (Lipitor -) 40 mg PO HS [facility] Last Admin: 04/30/18 21:15 Dose: 40 mg Azathioprine (Imuran -) 50 mg PO BID [facility] Last Admin: 05/01/18 10:48 Dose: 50 mg Calcium/Vitamin D (Oscal 250 Mg+D -) 2 tab PO DAILY [facility] Last Admin: 05/01/18 10:49 Dose: 2 tab Cyanocobalamin (Vitamin B12 -) 1,000 mcg PO DAILY [facility] Last Admin: 05/01/18 10:47 Dose: 1,000 mcg Fluticasone Propionate (Flonase -) 2 spray NS DAILY [facility] Last Admin: 05/01/18 10:50 Dose: 2 spray Meropenem 1 gm/ Dextrose 100 mls @ 200 mls/hr IVPB Q8H-IV [facility] Last Admin: 05/01/18 10:45 Dose: 200 mls/hr Loratadine (Claritin -) 10 mg PO DAILY [facility] Last Admin: 05/01/18 10:49 Dose: 10 mg Losartan Potassium (Cozaar -) 25 mg PO DAILY [facility] Last Admin: 05/01/18 10:49 Dose: 25 mg Mesalamine (Asacol Hd -) 800 mg PO TIDCM [facility] Last Admin: 05/01/18 11:44 Dose: Not Given Metoprolol Succinate (Toprol Xl -) 25 mg PO DAILY [facility] Last Admin: 05/01/18 10:49 Dose: 25 mg Multivitamins/Minerals/Vitamin C (Tab-A-Vit -) 1 tab PO DAILY [facility] Last Admin: 05/01/18 10:47 Dose: 1 tab Sodium Chloride ([place] Nasal [place] -) 2 spray NS TID PRN PRN Reason: NASAL CONGESTION - Objective Vital Signs: Vital Signs Temperature 97.8 F 05/01/18 14:36 Pulse Rate 67 05/01/18 14:36 Respiratory Rate 18 05/01/18 14:36 Blood Pressure 129/88 05/01/18 14:36 O2 Sat by Pulse Oximetry (%) 98 05/01/18 10:00 Constitutional: Yes: No Distress Eyes: Yes: Conjunctiva Clear Cardiovascular: Yes: Regular Rate and Rhythm, S1, S2 Respiratory: Yes: CTA Bilaterally Gastrointestinal: Yes: Normal Bowel Sounds, Soft. No: Tenderness Genitourinary: Yes: Other (+ ileal conduit) Edema: No Labs: CBC, BMP 04/30/18 06:00 04/30/18 06:00 Assessment/Plan Gram Negative bacteremia/ sepsis secondary to ESBL Bladder ca s/p ileal conduit CT findings and consult noted May substitute Ertapenem 1gm IVPB q24h x 10days as outpatient
[2018-05-01] MEDS: ATORVASTATIN CA 40 MG TABLET (FP) PO SCH (21:24)
[2018-05-02] MEDS ORDERED: PT OWN MED DRAWER 7, Y5N ONE ×7 (01:18→21:52)
[2018-05-02] MEDS: MEROPENEM 1 GM in DEXTROSE 5%-WATER 100 ML IVPB SCH ×3 (01:29→17:17)
[2018-05-02 07:31] LABS: BASO % 0.6 % (0-2.0); EOS % 3.7 % (0-4.5); HEMATOCRIT 32.6 % (35.4-49); HEMOGLOBIN 10.4 GM/dL (11.7-16.9); LYMPH % 29.7 % (8-40); MCH 29.1 pg (25.7-33.7); MCHC 31.9 g/dl (32.0-35.9); MEAN CELL VOLUME 91.2 fl (80-96); MEAN PLT VOLUME 8.9 fl (7.5-11.1); MONO % 8.6 % (3.8-10.2); NEUT % 57.4 % (42.8-82.8); PLATELET COUNT 105 K/MM3 (134-434); RBC 3.57 M/mm3 (4.00-5.60); RDW 17.8 % (11.9-15.9); WHITE BLOOD COUNT 2.7 K/mm3 (4.0-10.0)
[2018-05-02] MEDS: MESALAMINE 800 MG TABLET.DR PO SCH ×3 (09:15→17:17)
[2018-05-02] MEDS: LOSARTAN POTASSIUM 25 MG TABLET PO SCH (10:29)
[2018-05-02] MEDS: ASPIRIN 325 MG ENTERIC COATED TABLET (FP) PO SCH (10:29)
[2018-05-02] MEDS: CYANOCOBALAMIN 1,000 MCG TABLET (FP) PO SCH (10:29)
[2018-05-02] MEDS: MULTIVITAMINS (DAILY MVI) TABLET (FP) PO SCH (10:29)
[2018-05-02] MEDS: LORATADINE 10 MG TABLET PO SCH (10:29)
[2018-05-02] MEDS: CALCIUM 250MG/VIT-D 125 UNITS 1 COMBO TABLET PO SCH (10:29)
[2018-05-02] MEDS: azaTHIOprine 50 MG TABLET PO SCH ×2 (10:29→21:54)
[2018-05-02] MEDS: metoPROLOL SUCCINATE 25 MG TAB.SR.24H (FP) PO SCH (10:30)
[2018-05-02] MEDS: FLUTICASONE PROP 0.05% 16 GM NASAL SPRAY NS SCH (10:30)
--- NOTE | 2018-05-02 12:15 | PN ---
Progress Note, Physician Chief Complaint: AWAKE ALERT FEELING BETTER - Current Medication List Current Medications: Active Medications Acetaminophen (Tylenol -) 650 mg PO Q6H PRN PRN Reason: FEVER Albuterol Sulfate (Ventolin 0.083% Nebulizer Soln -) 1 amp NEB Q6H PRN PRN Reason: SHORT OF BREATH/WHEEZING Aspirin (Ecotrin -) 325 mg PO DAILY [facility] Last Admin: 05/02/18 10:29 Dose: 325 mg Atorvastatin Calcium (Lipitor -) 40 mg PO HS [facility] Last Admin: 05/01/18 21:24 Dose: 40 mg Azathioprine (Imuran -) 50 mg PO BID [facility] Last Admin: 05/02/18 10:29 Dose: 50 mg Calcium/Vitamin D (Oscal 250 Mg+D -) 2 tab PO DAILY [facility] Last Admin: 05/02/18 10:29 Dose: 2 tab Cyanocobalamin (Vitamin B12 -) 1,000 mcg PO DAILY [facility] Last Admin: 05/02/18 10:29 Dose: 1,000 mcg Fluticasone Propionate (Flonase -) 2 spray NS DAILY [facility] Last Admin: 05/02/18 10:30 Dose: 2 spray Meropenem 1 gm/ Dextrose 100 mls @ 200 mls/hr IVPB Q8H-IV [facility] Last Admin: 05/02/18 10:30 Dose: 200 mls/hr Loratadine (Claritin -) 10 mg PO DAILY [facility] Last Admin: 05/02/18 10:29 Dose: 10 mg Losartan Potassium (Cozaar -) 25 mg PO DAILY [facility] Last Admin: 05/02/18 10:29 Dose: 25 mg Mesalamine (Asacol Hd -) 800 mg PO TIDCM [facility] Last Admin: 05/02/18 11:57 Dose: 800 mg Metoprolol Succinate (Toprol Xl -) 25 mg PO DAILY [facility] Last Admin: 05/02/18 10:30 Dose: 25 mg Multivitamins/Minerals/Vitamin C (Tab-A-Vit -) 1 tab PO DAILY [facility] Last Admin: 05/02/18 10:29 Dose: 1 tab Sodium Chloride ([place] Nasal [place] -) 2 spray NS TID PRN PRN Reason: NASAL CONGESTION - Objective Vital Signs: Vital Signs Temperature 97.4 F L 05/02/18 05:42 Pulse Rate 56 L 05/02/18 05:42 Respiratory Rate 18 05/02/18 05:42 Blood Pressure 113/69 05/02/18 05:42 O2 Sat by Pulse Oximetry (%) 99 05/01/18 21:00 Constitutional: Yes: No Distress Eyes: Yes: WNL HENT: Yes: WNL Neck: Yes: WNL Cardiovascular: Yes: WNL Respiratory: Yes: WNL Gastrointestinal: Yes: Other Genitourinary: Yes: Other (ILEALCONDUIT) Musculoskeletal: Yes: Muscle Weakness Extremities: Yes: WNL Peripheral Pulses WNL: Yes Integumentary: Yes: WNL Wound/Incision: Yes: Other Neurological: Yes: Pre-Existing Deficit, Unsteady Gait ...Motor Strength: LLE, RLE Psychiatric: Yes: WNL Labs: CBC, BMP 05/02/18 06:10 04/30/18 06:00 Problem List - Problems (1) Syncope Code(s): R55 - SYNCOPE AND COLLAPSE (2) Bacteremia Code(s): R78.81 - BACTEREMIA (3) Change in mental status Code(s): R41.82 - ALTERED MENTAL STATUS, UNSPECIFIED (4) Complicated UTI (urinary tract infection) Code(s): N39.0 - URINARY TRACT INFECTION, SITE NOT SPECIFIED (5) Toxic metabolic encephalopathy Code(s): G92 - TOXIC ENCEPHALOPATHY (6) Transient alteration of awareness Code(s): R40.4 - TRANSIENT ALTERATION OF AWARENESS (7) Unsteady gait Code(s): R26.81 - UNSTEADINESS ON FEET Assessment/Plan 10 DAYS IV ERTAPENEM [facility] FRIDAY PT EVAL FALL RISKS TELEMETRY NO ALARMS
--- NOTE | 2018-05-02 17:29 | PN ---
Progress Note, Physician History of Present Illness: No complaints Does not think he should be a "fall risk" Tele: NSR - Current Medication List Current Medications: Active Medications Acetaminophen (Tylenol -) 650 mg PO Q6H PRN PRN Reason: FEVER Albuterol Sulfate (Ventolin 0.083% Nebulizer Soln -) 1 amp NEB Q6H PRN PRN Reason: SHORT OF BREATH/WHEEZING Aspirin (Ecotrin -) 325 mg PO DAILY [facility] Last Admin: 05/02/18 10:29 Dose: 325 mg Atorvastatin Calcium (Lipitor -) 40 mg PO HS [facility] Last Admin: 05/01/18 21:24 Dose: 40 mg Azathioprine (Imuran -) 50 mg PO BID [facility] Last Admin: 05/02/18 10:29 Dose: 50 mg Calcium/Vitamin D (Oscal 250 Mg+D -) 2 tab PO DAILY [facility] Last Admin: 05/02/18 10:29 Dose: 2 tab Cyanocobalamin (Vitamin B12 -) 1,000 mcg PO DAILY [facility] Last Admin: 05/02/18 10:29 Dose: 1,000 mcg Fluticasone Propionate (Flonase -) 2 spray NS DAILY [facility] Last Admin: 05/02/18 10:30 Dose: 2 spray Meropenem 1 gm/ Dextrose 100 mls @ 200 mls/hr IVPB Q8H-IV [facility] Last Admin: 05/02/18 17:17 Dose: 200 mls/hr Loratadine (Claritin -) 10 mg PO DAILY [facility] Last Admin: 05/02/18 10:29 Dose: 10 mg Losartan Potassium (Cozaar -) 25 mg PO DAILY [facility] Last Admin: 05/02/18 10:29 Dose: 25 mg Mesalamine (Asacol Hd -) 800 mg PO TIDCM [facility] Last Admin: 05/02/18 17:17 Dose: 800 mg Metoprolol Succinate (Toprol Xl -) 25 mg PO DAILY [facility] Last Admin: 05/02/18 10:30 Dose: 25 mg Multivitamins/Minerals/Vitamin C (Tab-A-Vit -) 1 tab PO DAILY [facility] Last Admin: 05/02/18 10:29 Dose: 1 tab Sodium Chloride ([place] Nasal [place] -) 2 spray NS TID PRN PRN Reason: NASAL CONGESTION - Objective Vital Signs: Vital Signs Temperature 98.3 F 11/17/18 13:45 Pulse Rate 70 05/02/18 13:45 Respiratory Rate 18 05/02/18 13:45 Blood Pressure 113/74 05/02/18 13:45 O2 Sat by Pulse Oximetry (%) 99 05/01/18 21:00 Constitutional: Yes: No Distress Eyes: Yes: WNL HENT: Yes: WNL Neck: Yes: WNL Cardiovascular: Yes: WNL Respiratory: Yes: CTA Bilaterally Gastrointestinal: Yes: Normal Bowel Sounds Musculoskeletal: Yes: WNL Extremities: Yes: WNL Edema: No Labs: CBC, BMP 05/02/18 06:10 04/30/18 06:00 Assessment/Plan a/p: 72M h/o HTN, HLD, colitis, TIA (no residual deficits) p/w weakness. alt mental status, uti, sepsis: - alt mental status likely 2/2 UTI, sepsis - on abx per ID, primary near syncope, weakness, diaphoresis: - may have been orthostatic in setting of prolonged standing, poor PO intake, sepsis - resolved now, treating sepsis as above - tele benign - has prior episodes of weakness, near syncope - had workup for falls in the past in cardiology clinic including echo, 7 day holter, stress testing, carotids which were unremarkable - currently has loop recorder in place, cont outpt monitoring h/o TIA - continue statin, neuro following HTN: - controlled on metoprolol, losartan, continue HLD: - continue home statin h/o PE - xarelto was stopped and is on aspirin 81 mg daily now
[2018-05-02] MEDS: ATORVASTATIN CA 40 MG TABLET (FP) PO SCH (21:54)
[2018-05-03] MEDS ORDERED: PT OWN MED DRAWER 7, Y5N ONE ×5 (02:02→21:06)
[2018-05-03] MEDS: MEROPENEM 1 GM in DEXTROSE 5%-WATER 100 ML IVPB SCH ×3 (02:10→17:20)
--- NOTE | 2018-05-03 09:51 | PN ---
Progress Note, Physician History of Present Illness: No events No complaints, wants to go home Tele: SB to 50s at 7:00AM - asymptomatic - Current Medication List Current Medications: Active Medications Acetaminophen (Tylenol -) 650 mg PO Q6H PRN PRN Reason: FEVER Albuterol Sulfate (Ventolin 0.083% Nebulizer Soln -) 1 amp NEB Q6H PRN PRN Reason: SHORT OF BREATH/WHEEZING Aspirin (Ecotrin -) 325 mg PO DAILY [facility] Last Admin: 05/02/18 10:29 Dose: 325 mg Atorvastatin Calcium (Lipitor -) 40 mg PO HS [facility] Last Admin: 05/02/18 21:54 Dose: 40 mg Azathioprine (Imuran -) 50 mg PO BID [facility] Last Admin: 05/02/18 21:54 Dose: 50 mg Calcium/Vitamin D (Oscal 250 Mg+D -) 2 tab PO DAILY [facility] Last Admin: 05/02/18 10:29 Dose: 2 tab Cyanocobalamin (Vitamin B12 -) 1,000 mcg PO DAILY [facility] Last Admin: 05/02/18 10:29 Dose: 1,000 mcg Fluticasone Propionate (Flonase -) 2 spray NS DAILY [facility] Last Admin: 05/02/18 10:30 Dose: 2 spray Meropenem 1 gm/ Dextrose 100 mls @ 200 mls/hr IVPB Q8H-IV [facility] Last Admin: 05/03/18 02:10 Dose: 200 mls/hr Loratadine (Claritin -) 10 mg PO DAILY [facility] Last Admin: 05/02/18 10:29 Dose: 10 mg Losartan Potassium (Cozaar -) 25 mg PO DAILY [facility] Last Admin: 05/02/18 10:29 Dose: 25 mg Mesalamine (Asacol Hd -) 800 mg PO TIDCM [facility] Last Admin: 05/02/18 17:17 Dose: 800 mg Metoprolol Succinate (Toprol Xl -) 25 mg PO DAILY [facility] Last Admin: 05/02/18 10:30 Dose: 25 mg Multivitamins/Minerals/Vitamin C (Tab-A-Vit -) 1 tab PO DAILY [facility] Last Admin: 05/02/18 10:29 Dose: 1 tab Sodium Chloride ([place] Nasal [place] -) 2 spray NS TID PRN PRN Reason: NASAL CONGESTION - Objective Vital Signs: Vital Signs Temperature 97.7 F 05/03/18 06:53 Pulse Rate 60 05/03/18 06:53 Respiratory Rate 18 05/03/18 06:53 Blood Pressure 100/55 L 05/03/18 06:53 O2 Sat by Pulse Oximetry (%) 96 05/02/18 21:00 Constitutional: Yes: Well Nourished, Calm Eyes: Yes: WNL HENT: Yes: WNL Neck: Yes: WNL Cardiovascular: Yes: Regular Rate and Rhythm Respiratory: Yes: CTA Bilaterally Gastrointestinal: Yes: Normal Bowel Sounds Musculoskeletal: Yes: WNL Extremities: Yes: WNL Edema: No Labs: CBC, BMP 05/02/18 06:10 04/30/18 06:00 Assessment/Plan a/p: 72M h/o HTN, HLD, colitis, TIA (no residual deficits) p/w weakness. alt mental status, uti, sepsis: - alt mental status likely 2/2 UTI, sepsis - on abx per ID, primary near syncope, weakness, diaphoresis: - may have been orthostatic in setting of prolonged standing, poor PO intake, sepsis - resolved now, treating sepsis as above - tele benign, asymptomatic bradycardia on tele - has prior episodes of weakness, near syncope - had workup for falls in the past in cardiology clinic including echo, 7 day holter, stress testing, carotids which were unremarkable - currently has loop recorder in place, cont outpt monitoring h/o TIA - continue statin, neuro following HTN: - controlled on metoprolol, losartan, continue HLD: - continue home statin h/o PE - xarelto was stopped and is on aspirin 81 mg daily now
[2018-05-03] MEDS: MULTIVITAMINS (DAILY MVI) TABLET (FP) PO SCH (10:19)
[2018-05-03] MEDS: LOSARTAN POTASSIUM 25 MG TABLET PO SCH (10:19)
[2018-05-03] MEDS: metoPROLOL SUCCINATE 25 MG TAB.SR.24H (FP) PO SCH (10:19)
[2018-05-03] MEDS: CYANOCOBALAMIN 1,000 MCG TABLET (FP) PO SCH (10:19)
[2018-05-03] MEDS: MESALAMINE 800 MG TABLET.DR PO SCH ×3 (10:20→16:37)
[2018-05-03] MEDS: LORATADINE 10 MG TABLET PO SCH (10:20)
[2018-05-03] MEDS: ASPIRIN 325 MG ENTERIC COATED TABLET (FP) PO SCH (10:20)
[2018-05-03] MEDS: CALCIUM 250MG/VIT-D 125 UNITS 1 COMBO TABLET PO SCH (10:20)
[2018-05-03] MEDS: azaTHIOprine 50 MG TABLET PO SCH ×2 (10:21→21:08)
[2018-05-03] MEDS: FLUTICASONE PROP 0.05% 16 GM NASAL SPRAY NS SCH (10:21)
--- NOTE | 2018-05-03 11:36 | DS ---
Physical Examination Vital Signs: Vital Signs Temperature 98 F 05/03/18 09:00 Pulse Rate 65 05/03/18 09:00 Respiratory Rate 18 05/03/18 09:00 Blood Pressure 114/65 05/03/18 09:00 O2 Sat by Pulse Oximetry (%) 99 05/03/18 09:00 Labs: CBC, BMP 05/02/18 06:10 04/30/18 06:00 Discharge Summary Reason For Visit: PNEUMONIA Current Active Problems Bacteremia (Acute) Change in mental status (Acute) Complicated UTI (urinary tract infection) (Acute) History of ileal conduit (Acute) Hydronephrosis (Acute) IBS (irritable bowel syndrome) (Acute) Pneumonia (Acute) Syncope (Acute) Condition: Fair - Instructions - Home Medications Comprehensive Discharge Medication List: Ambulatory Orders Cyanocobalamin [Vitamin B12 -] 1,000 mg PO DAILY 03/09/15 Multivitamins [Multivit ([facility] Formulary)] 1 tab PO DAILY 04/19/15 Calcium 250Mg/Vit-D 125 Units [Oscal 250 mg+D -] 2 combo PO DAILY #60 tablet Losartan Potassium [Cozaar -] 25 mg PO DAILY tablet 01/18/18 Metoprolol Succinate [Toprol XL -] 25 mg PO DAILY tab.sr.24h 01/18/18 Atorvastatin Ca [Lipitor] 40 mg PO DAILY 03/23/18 Azathioprine [Imuran -] 50 mg PO BID 03/23/18 Mesalamine 1.2 gm PO BID 03/23/18 Aspirin Coated [Ecotrin -] 325 mg PO DAILY 03/24/18 Acetaminophen [Tylenol .Regular Strength -] 650 mg PO Q6H PRN tablet 03/31/18 Albuterol 0.083% Nebulizer Ric[place]le [Ventolin 0.083% Nebulizer Soln -] 1 amp NEB Q6H PRN amp 03/31/18 Enoxaparin [Lovenox -] 40 mg SQ DAILY disp.syrin 03/31/18 Fluticasone Prop 0.05% Nasal [Flonase -] 2 spray NS DAILY spray 03/31/18 Loratadine [Claritin -] 10 mg PO DAILY tablet 03/31/18 Mesalamine [Asacol HD -] 800 mg PO TID tablet. 03/31/18 Nitrofurantoin Macrocrystal [Macrodantin -] 50 mg PO Q6HPO 3 Days capsule 03/31 Sodium Chloride Nasal [place] [[place] Nasal [place] -] 2 spray NS TID PRN spray 03/31/18 Meropenem [Merrem (Restricted To Id) -] 1 gm IVPB Q8H-IV 7 Days vial 05/03/18
[2018-05-03] MEDS: ATORVASTATIN CA 40 MG TABLET (FP) PO SCH (21:08)
[2018-05-04] MEDS ORDERED: PT OWN MED DRAWER 7, Y5N ONE ×5 (01:26→12:44)
[2018-05-04] MEDS: MEROPENEM 1 GM in DEXTROSE 5%-WATER 100 ML IVPB SCH ×2 (01:28→09:49)
--- NOTE | 2018-05-04 08:38 | DS ---
Physical Examination Vital Signs: Vital Signs Temperature 975 F H 05/04/18 05:30 Pulse Rate 57 L 05/04/18 05:30 Respiratory Rate 16 05/04/18 05:30 Blood Pressure 116/70 05/04/18 05:30 O2 Sat by Pulse Oximetry (%) 99 05/04/18 00:05 Cardiovascular: Yes: S1, S2 Respiratory: Yes: Regular, CTA Bilaterally Gastrointestinal: Yes: Normal Bowel Sounds, Soft Labs: CBC, BMP 05/02/18 06:10 04/30/18 06:00 Discharge Summary Reason For Visit: PNEUMONIA Current Active Problems Bacteremia (Acute) Change in mental status (Acute) Complicated UTI (urinary tract infection) (Acute) History of ileal conduit (Acute) Hydronephrosis (Acute) IBS (irritable bowel syndrome) (Acute) Pneumonia (Acute) Syncope (Acute) Hospital Course: - Problems (1) Bacteremia Assessment/Plan: Urine and bc culture pending Microbiology 04/27/18 21:45 Blood Culture - Preliminary Blood - Peripheral Venous NO GROWTH OBTAINED AFTER 48 HOURS, INCUBATION TO CONTINUE FOR 3 DAYS. 04/27/18 23:33 Urine Culture - Preliminary Urine - Urine Clean Catch Lactose Fermenting Neg Bacilli Lactose Fermenting Neg Bacilli#2 Pending Organism 04/27/18 21:45 Blood Culture - Preliminary Blood - Peripheral Venous Lactose Fermenting Neg Bacilli Started on Zosyn, Vancomycin, continue Appreciate ID consult Monitor CBC, BMP Monitor vitals D/W DR GUERRA NEEDS PICC LINE --14 DAYS TOTAL ABX Code(s): R78.81 - BACTEREMIA (2) Complicated UTI (urinary tract infection) Assessment/Plan: as above Code(s): N39.0 - URINARY TRACT INFECTION, SITE NOT SPECIFIED (3) IBS (irritable bowel syndrome) Assessment/Plan: home meds Code(s): K58.9 - IRRITABLE BOWEL SYNDROME WITHOUT DIARRHEA (4) Diabetes Assessment/Plan: controlled BGMs continue home meds Code(s): E11.9 - TYPE 2 DIABETES MELLITUS WITHOUT COMPLICATIONS (5) HTN (hypertension) Assessment/Plan: same meds Code(s): I10 - ESSENTIAL (PRIMARY) HYPERTENSION Qualifiers: Hypertension type: unspecified Qualified Code(s): I10 - Essential (primary ) hypertension (6) Metabolic encephalopathy Assessment/Plan: Improved Likely secondary to UTI Fall precautions Neurochecks Code(s): G93.41 - METABOLIC ENCEPHALOPATHY (7) History of ileal conduit Assessment/Plan: C Stomal Care Appreciate Social Work consult for VNS services for Urostomy care Code(s): Z98.890 - OTHER SPECIFIED POSTPROCEDURAL STATES (8) Hydronephrosis Assessment/Plan: -Urology Consult Code(s): N13.30 - UNSPECIFIED HYDRONEPHROSIS Condition: Fair - Instructions - Home Medications Comprehensive Discharge Medication List: Ambulatory Orders Cyanocobalamin [Vitamin B12 -] 1,000 mg PO DAILY 03/09/15 Multivitamins [Multivit ([facility] Formulary)] 1 tab PO DAILY 04/19/15 Calcium 250Mg/Vit-D 125 Units [Oscal 250 mg+D -] 2 combo PO DAILY #60 tablet Losartan Potassium [Cozaar -] 25 mg PO DAILY tablet 01/18/18 Metoprolol Succinate [Toprol XL -] 25 mg PO DAILY tab.sr.24h 01/18/18 Atorvastatin Ca [Lipitor] 40 mg PO DAILY 03/23/18 Azathioprine [Imuran -] 50 mg PO BID 03/23/18 Mesalamine 1.2 gm PO BID 03/23/18 Aspirin Coated [Ecotrin -] 325 mg PO DAILY 03/24/18 Acetaminophen [Tylenol .Regular Strength -] 650 mg PO Q6H PRN tablet 03/31/18 Albuterol 0.083% Nebulizer [place] [Ventolin 0.083% Nebulizer Soln -] 1 amp NEB Q6H PRN amp 03/31/18 Enoxaparin [Lovenox -] 40 mg SQ DAILY disp.syrin 03/31/18 Fluticasone Prop 0.05% Nasal [Flonase -] 2 spray NS DAILY spray 03/31/18 Loratadine [Claritin -] 10 mg PO DAILY tablet 03/31/18 Mesalamine [Asacol HD -] 800 mg PO TID tablet.dr 03/31/18 Nitrofurantoin Macrocrystal [Macrodantin -] 50 mg PO Q6HPO 3 Days capsule 03/31 Sodium Chloride Nasal [place] [[place] Nasal [place] -] 2 spray NS TID PRN spray 03/31/18 Meropenem [Merrem (Restricted To Id) -] 1 gm IVPB Q8H-IV 7 Days vial 05/03/18
[2018-05-04] MEDS: MESALAMINE 800 MG TABLET.DR PO SCH ×2 (09:46→12:04)
[2018-05-04] MEDS: azaTHIOprine 50 MG TABLET PO SCH (09:46)
[2018-05-04] MEDS: LOSARTAN POTASSIUM 25 MG TABLET PO SCH (09:47)
[2018-05-04] MEDS: metoPROLOL SUCCINATE 25 MG TAB.SR.24H (FP) PO SCH (09:47)
[2018-05-04] MEDS: CYANOCOBALAMIN 1,000 MCG TABLET (FP) PO SCH (09:47)
[2018-05-04] MEDS: MULTIVITAMINS (DAILY MVI) TABLET (FP) PO SCH (09:47)
[2018-05-04] MEDS: CALCIUM 250MG/VIT-D 125 UNITS 1 COMBO TABLET PO SCH (09:48)
[2018-05-04] MEDS: ASPIRIN 325 MG ENTERIC COATED TABLET (FP) PO SCH (09:48)
[2018-05-04] MEDS: LORATADINE 10 MG TABLET PO SCH (09:48)
[2018-05-04] MEDS: FLUTICASONE PROP 0.05% 16 GM NASAL SPRAY NS SCH (09:48)
--- NOTE | 2018-05-04 09:58 | PN ---
Progress Note, Physician Chief Complaint: alt MS History of Present Illness: not confused, feels at his baseline no cp, sob, palpit - Current Medication List Current Medications: Active Medications Acetaminophen (Tylenol -) 650 mg PO Q6H PRN PRN Reason: FEVER Albuterol Sulfate (Ventolin 0.083% Nebulizer Soln -) 1 amp NEB Q6H PRN PRN Reason: SHORT OF BREATH/WHEEZING Aspirin (Ecotrin -) 325 mg PO DAILY [facility] Last Admin: 05/04/18 09:48 Dose: 325 mg Atorvastatin Calcium (Lipitor -) 40 mg PO HS [facility] Last Admin: 05/03/18 21:08 Dose: 40 mg Azathioprine (Imuran -) 50 mg PO BID [facility] Last Admin: 05/04/18 09:46 Dose: 50 mg Calcium/Vitamin D (Oscal 250 Mg+D -) 2 tab PO DAILY [facility] Last Admin: 05/04/18 09:48 Dose: 2 tab Cyanocobalamin (Vitamin B12 -) 1,000 mcg PO DAILY [facility] Last Admin: 05/04/18 09:47 Dose: 1,000 mcg Fluticasone Propionate (Flonase -) 2 spray NS DAILY [facility] Last Admin: 05/04/18 09:48 Dose: 2 spray Meropenem 1 gm/ Dextrose 100 mls @ 200 mls/hr IVPB Q8H-IV [facility] Last Admin: 05/04/18 09:49 Dose: 200 mls/hr Loratadine (Claritin -) 10 mg PO DAILY [facility] Last Admin: 05/04/18 09:48 Dose: 10 mg Losartan Potassium (Cozaar -) 25 mg PO DAILY [facility] Last Admin: 05/04/18 09:47 Dose: 25 mg Mesalamine (Asacol Hd -) 800 mg PO TIDCM [facility] Last Admin: 05/04/18 09:46 Dose: 800 mg Metoprolol Succinate (Toprol Xl -) 25 mg PO DAILY [facility] Last Admin: 05/04/18 09:47 Dose: 25 mg Multivitamins/Minerals/Vitamin C (Tab-A-Vit -) 1 tab PO DAILY [facility] Last Admin: 05/04/18 09:47 Dose: 1 tab Sodium Chloride ([place] Nasal [place] -) 2 spray NS TID PRN PRN Reason: NASAL CONGESTION - Objective Vital Signs: Vital Signs Temperature 975 F H 05/04/18 05:30 Pulse Rate 57 L 05/04/18 05:30 Respiratory Rate 16 05/04/18 05:30 Blood Pressure 116/70 05/04/18 05:30 O2 Sat by Pulse Oximetry (%) 99 05/04/18 00:05 Constitutional: Yes: Well Nourished, No Distress, Calm Cardiovascular: Yes: Regular Rate and Rhythm, S1, S2. No: Gallop, Murmur Respiratory: Yes: Regular, CTA Bilaterally. No: Accessory Muscle Use Extremities: No: Cold Edema: No Neurological: Yes: Alert, Oriented Psychiatric: No: Agitated Labs: CBC, BMP 05/02/18 06:10 04/30/18 06:00 Assessment/Plan Ex stress mibi 10/2014: 5 mins, 30 secs, no ischemia stress echo 10/2016 nonischemic stress test by EKG, mod T, no echo evidence of inducible ischemia, exercised 4:38 min, peak RVSP 71 mmHg, post exercise carotids 09/2016 mild nonobstructive dz Holter 7 days 05/2017 NSR, sinus kalani x3 to low 50s bpm (from 2-7 AM episodes) ecg: sr, nl intervals, lat twis, no sig change prior CXR no acute process echo 01/14/18 nl LV function, no sig valvular abnormalities tele: sr, occ pvcs a/p: 72M h/o HTN, HLD, colitis, TIA (no residual deficits) p/w weakness. alt mental status, uti, sepsis: - alt mental status likely 2/2 UTI, sepsis - abx plan per ID near syncope, weakness, diaphoresis: - episode today may be orthostatic in setting of prolonged standing, poor PO intake, sepsis - resolved now, treating sepsis as above - tele benign here, has loop recorder in place (no arrhythmias detected to date) - has prior episodes of weakness, near syncope - had workup for falls in the past in cardiology clinic including echo, 7 day holter, stress testing, carotids which were unremarkable h/o TIA - continue statin, neuro following HTN: - controlled on metoprolol, losartan, continue HLD: - continue home statin h/o PE - xarelto was stopped and is on aspirin 81 mg daily now D/C TELEMETRY
[2018-05-04 14:45] VITALS: BP 128/58; PULSE 76; TEMP 97.6
== END 2018-05-04 15:32 | DRG 871 ==
LOC: JER 20:06 → JERBED 23:33 → UNDOADMIN 23:41 → JERBED 23:41 → J4S 04-29 18:36
PROVIDERS: ADMIT Internal Medicine; ATTEND Family Medicine
PROC: 02HV33Z Insertion of Infusion Device into Superior Vena Cava, Percutaneous Approach (ICD-10-PCS; principal; 2018-05-04)
PROC: B548ZZA Ultrasonography of Superior Vena Cava, Guidance (ICD-10-PCS; 2018-05-04)
DX: A41.50 Gram-negative sepsis, unspecified (principal); G93.41 Metabolic encephalopathy; N39.0 Urinary tract infection, site not specified; N13.30 Unspecified hydronephrosis; I10 Essential (primary) hypertension; E78.5 Hyperlipidemia, unspecified; K58.9 Irritable bowel syndrome, unspecified; Z85.51 Personal history of malignant neoplasm of bladder; E66.9 Obesity, unspecified; Z86.73 Personal history of transient ischemic attack (TIA), and cerebral infarction without residual deficits; R55 Syncope and collapse; D69.6 Thrombocytopenia, unspecified; Z86.711 Personal history of pulmonary embolism; R26.81 Unsteadiness on feet; Z68.28 Body mass index [BMI] 28.0-28.9, adult
CPT/HCPCS: 36415; 36569; 70450-TC; 71045-TC-FY; 74178-TC; 77001-TC-FY; 80048; 80053; 81003; 81015; 82140; 82550; 82962; 83735; 84100; 84443; 84484; 85025; 85027; 87040; 87086; 87186; 93005; 93010; 94010; 97116-GP; 97161-GP; 99285-25; C1751; J0131

== ENCOUNTER 2018-10-23 14:33 | Inpatient (IN) | payer OTHER, MEDICARE ==
--- NOTE | 2018-10-23 14:53 | PDOC ---
Rapid Medical Evaluation Chief Complaint: Sore Throat Medical Evaluation: Allergies Allergy/AdvReac Type Severity Reaction Status Date / Time bee pollen Allergy Verified 10/23/18 14:41 Vital Signs Temp Pulse Resp BP Pulse Ox 98.1 F 71 17 125/68 100 10/23/18 14:40 10/23/18 14:40 10/23/18 14:40 10/23/18 14:40 10/23/18 14:40 I have performed a brief in-person evaluation of this patient. The patient presents with a chief complaint of: patient sent by Dr. Appiah for admission for toxic metabolic encephalopathy/UTI; patient denies any complaints ; case was d/w Dr. Almodovar Pertinent physical exam findings: In NAD, alert I have ordered the following: Labs, EKG The patient will proceed to the ED for further evaluation. 10/23/18 14:50
[2018-10-23 15:26] LABS: BASO % 0.4 % (0-2.0); EOS % 0.4 % (0-4.5); HEMATOCRIT 35.2 % (35.4-49); HEMOGLOBIN 11.4 GM/dL (11.7-16.9); LYMPH % 13.4 % (8-40); MCH 30.8 pg (25.7-33.7); MCHC 32.5 g/dl (32.0-35.9); MEAN CELL VOLUME 94.7 fl (80-96); MEAN PLT VOLUME 9.7 fl (7.5-11.1); MONO % 12.6 % (3.8-10.2); NEUT % 73.2 % (42.8-82.8); PLATELET COUNT 182 K/MM3 (134-434); RBC 3.71 M/mm3 (4.00-5.60); RDW 15.7 % (11.9-15.9); WHITE BLOOD COUNT 5.3 K/mm3 (4.0-10.0)
[2018-10-23 15:57] LABS: ALBUMIN 3.5 g/dl (3.4-5.0); BILIRUBIN,TOTAL 0.7 mg/dL (0.2-1); CALCIUM 8.8 mg/dL (8.5-10.1); CREATININE 1.3 mg/dL (0.55-1.3); POTASSIUM 4.1 mmol/L (3.5-5.1); TOT PROT 7.6 g/dl (6.4-8.2)
--- NOTE | 2018-10-23 16:30 | PDOC ---
History of Present Illness - General Chief Complaint: Weakness Stated Complaint: I dont feel good, r/o UTI Time Seen by Provider: 10/23/18 14:50 History Source: Patient Exam Limitations: No Limitations - History of Present Illness Initial Comments: 10/23/18 16:22 73 yo male pmh HTN, HLD, colitis, bladder cancer s/p resection (iliostomy) TIA ( no residual deficits) sent by Dr. Easley for possible toxic metabolic encephalopathy/UTI. Pt states for the past 5 days has noted cloudy urine and has not felt well but can not describe any further. Denies current confusion, memory loss, headaches, burning or pain on urination, changes in bowel habits, CP, SOB, abdominal pain. F/C/N/V, recent travel or sick contacts. Of note, pt known to have resistant UTIs (E coli, Kleb, VR Fecium) and blood cultures in 2017, treated with Vanc and zosyn. Vitals WNL BS 113 Pt AOX3 resting comf ambulating Past History - Past Medical History Allergies/Adverse Reactions: Allergies Allergy/AdvReac Type Severity Reaction Status Date / Time No Known Allergies Allergy Verified 10/23/18 14:54 Home Medications: Ambulatory Orders Cyanocobalamin [Vitamin B12 -] 1,000 mg PO DAILY 03/09/15 Multivitamins [Multivit ([facility] Formulary)] 1 tab PO DAILY 04/19/15 Calcium 250Mg/Vit-D 125 Units [Oscal 250 mg+D -] 2 combo PO DAILY #60 tablet Losartan Potassium [Cozaar -] 25 mg PO DAILY tablet 01/18/18 Metoprolol Succinate [Toprol XL -] 25 mg PO DAILY tab.sr.24h 01/18/18 Atorvastatin Ca [Lipitor] 40 mg PO DAILY 03/23/18 Azathioprine [Imuran -] 50 mg PO BID 03/23/18 Mesalamine 1.2 gm PO BID 03/23/18 Aspirin Coated [Ecotrin -] 325 mg PO DAILY 03/24/18 Acetaminophen [Tylenol .Regular Strength -] 650 mg PO Q6H PRN tablet 03/31/18 Albuterol 0.083% Nebulizer [place] [Ventolin 0.083% Nebulizer Soln -] 1 amp NEB Q6H PRN amp 03/31/18 Ciprofloxacin [Cipro (Restricted To Id)] 500 mg PO Q12H 10/23/18 Nitrofurantoin Macrocrystal [Nitrofurantoin] 100 mg PO BID 10/23/18 Anemia: No Asthma: No Cancer: Yes (PROSTATE with rad ,UROSTOMY) Cardiac Disorders: No CVA: No COPD: No CHF: No DVT: No Dementia: No Diabetes: Yes (hx borderline) GI Disorders: Yes (COLITIS) Disorders: No HTN: Yes Hypercholesterolemia: Yes Liver Disease: No Seizures: No Thyroid Disease: No - Surgical History Abdominal Surgery: Yes (HERNIA,UROSTOMY) Appendectomy: No Cardiac Surgery: No Cholecystectomy: No GI Surgery: Yes Lung Surgery: No Neurologic Surgery: No Orthopedic Surgery: No - Suicide/Smoking/Psychosocial Hx Smoking History: Never smoked Have you smoked in the past 12 months: No Number of Cigarettes Smoked Daily: 10 If you are a former smoker, when did you quit?: 1989 Information on smoking cessation initiated: No 'Breaking Loose' booklet given: 05/02/17 Hx Alcohol Use: No Drug/Substance Use Hx: No Substance Use Type: None Hx Substance Use Treatment: No *Physical Exam - Vital Signs Last Vital Signs Temp Pulse Resp BP Pulse Ox 98.1 F 80 18 111/63 98 10/23/18 14:40 10/23/18 14:40 10/23/18 14:40 10/23/18 14:40 10/23/18 14:40 ED Treatment Course - LABORATORY CBC & Chemistry Diagram: 10/23/18 15:04 10/23/18 15:04 - ADDITIONAL ORDERS Additional order review: Laboratory Results 10/23/18 15:04 Sodium 139 Potassium 4.1 Chloride 105 Carbon Dioxide 27 Anion Gap 7 L BUN 29 H Creatinine 1.3 Est GFR (CKD-EPI)AfAm 62.30 Est GFR (CKD-EPI)NonAf 53.75 Random Glucose 113 H Calcium 8.8 Total Bilirubin 0.7 AST 25 ALT 28 Alkaline Phosphatase 67 Total Protein 7.6 Albumin 3.5 10/23/18 15:04 RBC 3.71 L MCV 94.7 MCHC 32.5 RDW 15.7 D MPV 9.7 Neutrophils % 73.2 D Lymphocytes % 13.4 D Monocytes % 12.6 H Eosinophils % 0.4 D Basophils % 0.4 *DC/Admit/Observation/Transfer Diagnosis at time of Disposition: UTI (urinary tract infection) Qualifiers: Urinary tract infection type: site unspecified Hematuria presence: with hematuria Qualified Code(s): N39.0 - Urinary tract infection, site not specified ; R31.9 - Hematuria, unspecified - Discharge Dispostion Condition at time of disposition: Stable Decision to Admit order: Yes - Referrals Referrals: Duncan Appiah MD [Primary Care Provider] - - Patient Instructions - Post Discharge Activity
[2018-10-23 16:44] LABS: EPI CELLS 2.1 /HPF (0-5/HPF); PH,URINE 5.5 (5.0-8.0); URINE APPEARANCE TURBID; URINE BILIRUBIN NEGATIVE (NEGATIVE); URINE CASTS 22 /lpf (0-8); URINE COLOR YELLOW; URINE GLUCOSE (UA) NEGATIVE (NEGATIVE); URINE KETONE NEGATIVE (NEGATIVE); URINE LEUK ESTERASE 3+ (NEGATIVE); URINE NITRITE POSITIVE (NEGATIVE); URINE PROTEIN 1+ (NEGATIVE); URINE RBC 21 /hpf (0-4); URINE UROBILINOGEN 0.2 mg/dL (0.2-1.0); URINE WBC 413 /hpf (0-5)
--- NOTE | 2018-10-23 17:15 | PDOC ---
Documentation entered by Marin Del Angle SCRIBE, acting as scribe for Carlee Foster MD. Carlee Foster MD: This documentation has been prepared by the scribe, Marin Del Angel SCRIBE, under my direction and personally reviewed by me in its entirety. I confirm that the documentation accurately reflects all work, treatment, procedures, and medical decision making performed by me. Attending Attestation - Resident Resident Name: Pritesh Cordero - ED Attending Attestation I have performed the following: I have examined & evaluated the patient, The case was reviewed & discussed with the resident, I agree w/resident's findings & plan, Exceptions are as noted - HPI HPI: 10/23/18 17:04 The patient is a 73 year old male with a significant past medical history of hypertension, hyperlipidemia, colitis, IBS, TIA, and bladder ca who presents to the Emergency department with weakness for about 5 days. It is noted that the patient was drinking at a [employer] on friday but denies anything out or the norm. The patient states that he is not sure why he feels the way he does; he just states that he does not feel well. He states that he went to his PCP office today by which he was subsequently sent to the ED for toxic encephalopathies and rule out UTI. The patient denies any sick contact, recent travel, other symptoms or complaints. - Physicial Exam PE: GENERAL: Awake, alert, and fully oriented, in no acute distress HEAD: No signs of trauma EYES: PERRLA, EOMI, sclera anicteric, conjunctiva clear ENT: Auricles normal inspection, hearing grossly normal, nares patent, oropharynx clear without exudates. Moist mucosa NECK: Normal ROM, supple, no lymphadenopathy, JVD, or masses LUNGS: Breath sounds equal, clear to auscultation bilaterally. No wheezes, and no crackles HEART: Regular rate and rhythm, normal S1 and S2, no murmurs, rubs or gallops ABDOMEN: Soft, nontender, normoactive bowel sounds. No guarding, no rebound. No masses. +Ileal conduit with bag to R mid-abdomen. +Midline hernia that is large, reducible EXTREMITIES: Normal range of motion, no edema. No clubbing or cyanosis. No cords, erythema, or tenderness NEUROLOGICAL: Cranial nerves II through XII grossly intact. Normal speech, normal gait. Motor and sensation intact SKIN: Warm, Dry, normal turgor, no rashes or lesions noted. - Medical Decision Making Pt with history of ileal conduit with multiple drug-resistant UTIs. Will obtain UA. Plan for admission as per Dr. Appiah.
[2018-10-23] MEDS ORDERED: PIPERACILLIN/TAZOB 4.5 GM 4.5 GM in DEXTROSE 5%-WATER 100 ML IVPB ONE (17:58)
[2018-10-23] MEDS ORDERED: PIPERACILLIN/TAZOB 4.5 GM 4.5 GM/100 ML BAG IVPB ONE (18:09)
--- NOTE | 2018-10-23 18:42 | HP ---
CHIEF COMPLAINT: sent by PCP for septic workup PCP: Dr. Appiah HISTORY OF PRESENT ILLNESS: patient is a 73 year old male who was sent to [facility] by his PCP for septic workup. patient reports that last Friday, he was in his neighbor's home and was told that he was acting differently and confused. He was taken via ambulance to [facility] but per patient, was not admitted nor given antibiotics. He was sent home. When he followed up with his PCP, he was sent to the ED for further evaluation. Patient has a past medical history of iliostomy placement 2 years ago for bladder cancer, TIA (no residual deficits) and frequent UTIs. On exam, patient denies current confusion, memory loss, headaches, changes in bowel habits, chest pain or shortness of breath. No abdominal pain, no recent travel or sick contacts. Patient is alert and oriented reports concerns about keeping his stoma clean to avoid UTIs. In the past microbiology, patient is noted to have resistant UTIs (E coli, Kleb, VR Fecium) and blood cultures in 04/2018, treated with Vanc and zosyn. ER course was notable for: (1) UA + yellow turbid urine, protein +1, urine blood +2, nitrate positive, leuk est +3, wbc 413, urine bacteria 8170 (2) blood and urine cultures drawn prior to antibiotic initiation (3) lactic acid pending. blood and urine cultures pending. Recent Travel: none reported PAST MEDICAL HISTORY: as noted above PAST SURGICAL HISTORY: iliostomy placement 2 years ago for bladder cancer, T Social History: Smoking: denies Alcohol: denies Drugs: denies Family History: Allergies No Known Allergies Allergy (Verified 10/23/18 14:54) HOME MEDICATIONS: Home Medications Medication Instructions Recorded Cyanocobalamin [Vitamin B12 -] 1,000 mg PO DAILY 03/09/15 Multivitamins [Multivit ([facility] 1 tab PO DAILY 04/19/15 Formulary)] Calcium 250Mg/Vit-D 125 Units 2 combo PO DAILY #60 tablet 05/10/15 [Oscal 250 mg+D -] Losartan Potassium [Cozaar -] 25 mg PO DAILY tablet 01/18/18 Metoprolol Succinate [Toprol XL -] 25 mg PO DAILY tab.sr.24h 01/18/18 Atorvastatin Ca [Lipitor] 40 mg PO DAILY 03/23/18 Azathioprine [Imuran -] 50 mg PO BID 03/23/18 Mesalamine 1.2 gm PO BID 03/23/18 Aspirin Coated [Ecotrin -] 325 mg PO DAILY 03/24/18 Acetaminophen [Tylenol .Regular 650 mg PO Q6H PRN tablet 03/31/18 Strength -] Albuterol 0.083% Nebulizer Richelle 1 amp NEB Q6H PRN amp 03/31/18 [Ventolin 0.083% Nebulizer Soln -] Ciprofloxacin [Cipro (Restricted 500 mg PO Q12H 10/23/18 To Id)] Nitrofurantoin Macrocrystal 100 mg PO BID 10/23/18 [Nitrofurantoin] REVIEW OF SYSTEMS CONSTITUTIONAL: Absent: fever, chills, diaphoresis, generalized weakness, malaise, loss of appetite, weight change HEENT: Absent: rhinorrhea, nasal congestion, throat pain, throat swelling, difficulty swallowing, mouth swelling, ear pain, eye pain, visual changes CARDIOVASCULAR: Absent: chest pain, syncope, palpitations, irregular heart rate, lightheadedness , peripheral edema RESPIRATORY: Absent: cough, shortness of breath, dyspnea with exertion, orthopnea, wheezing, stridor, hemoptysis GASTROINTESTINAL: Absent: abdominal pain, abdominal distension, nausea, vomiting, diarrhea, constipation, melena, hematochezia GENITOURINARY: Absent: dysuria, frequency, urgency, hesitancy, hematuria, flank pain, genital pain MUSCULOSKELETAL: Absent: myalgia, arthralgia, joint swelling, back pain, neck pain SKIN: Absent: rash, itching, pallor HEMATOLOGIC/IMMUNOLOGIC: Absent: easy bleeding, easy bruising, lymphadenopathy, frequent infections ENDOCRINE: Absent: unexplained weight gain, unexplained weight loss, heat intolerance, cold intolerance NEUROLOGIC: Absent: headache, focal weakness or paresthesias, dizziness, unsteady gait, seizure, mental status changes, bladder or bowel incontinence PSYCHIATRIC: Absent: anxiety, depression, suicidal or homicidal ideation, hallucinations. PHYSICAL EXAMINATION Vital Signs - 24 hr 10/23/18 14:40 Temperature 98.1 F Pulse Rate 80 Respiratory 18 Rate Blood Pressure 111/63 O2 Sat by Pulse 98 Oximetry (%) GENERAL: Awake, alert, and fully oriented, in no acute distress. HEAD: Normal with no signs of trauma. EYES: Pupils equal, round and reactive to light, extraocular movements intact, sclera anicteric, conjunctiva clear. No lid lag. EARS, NOSE, THROAT: Ears normal, nares patent, oropharynx clear without exudates. Moist mucous membranes. NECK: Normal range of motion, supple without lymphadenopathy, JVD, or masses. LUNGS: Breath sounds equal, clear to auscultation bilaterally. No wheezes HEART: Regular rate and rhythm ABDOMEN: Soft, nontender, right iliostomy with cloudy turb urine. no mucus noted. bag leaking, some odor noted MUSCULOSKELETAL: Normal range of motion at all joints. No bony deformities or tenderness. No CVA tenderness. UPPER EXTREMITIES: 2+ pulses, warm, well-perfused. No cyanosis. No clubbing. No peripheral edema. LOWER EXTREMITIES: 2+ pulses, warm, well-perfused. No calf tenderness. No peripheral edema. NEUROLOGICAL: Normal speech. Normal gait (ambulate to bathroom, steady gait) PSYCHIATRIC: Cooperative. Good eye contact. Appropriate mood and affect. Laboratory Results - last 24 hr 10/23/18 10/23/18 10/23/18 15:04 15:04 16:21 WBC 5.3 RBC 3.71 L Hgb 11.4 L Hct 35.2 L MCV 94.7 MCH 30.8 MCHC 32.5 RDW 15.7 D Plt Count 182 D MPV 9.7 Absolute Neuts (auto) 3.9 Neutrophils % 73.2 D Lymphocytes % 13.4 D Monocytes % 12.6 H Eosinophils % 0.4 D Basophils % 0.4 Nucleated RBC % 0 Sodium 139 Potassium 4.1 Chloride 105 Carbon Dioxide 27 Anion Gap 7 L BUN 29 H Creatinine 1.3 Est GFR (CKD-EPI)AfAm 62.30 Est GFR (CKD-EPI)NonAf 53.75 Random Glucose 113 H Calcium 8.8 Total Bilirubin 0.7 AST 25 ALT 28 Alkaline Phosphatase 67 Total Protein 7.6 Albumin 3.5 Urine Color Yellow Urine Appearance Turbid Urine pH 5.5 Ur Specific [place] 1.018 Urine Protein 1+ H Urine Glucose (UA) Negative Urine Ketones Negative Urine Blood 2+ H Urine Nitrite Positive H Urine Bilirubin Negative Urine Urobilinogen 0.2 Ur Leukocyte Esterase 3+ H Urine WBC (Auto) 413 Urine RBC (Auto) 21 Urine Casts (Auto) 22 U Epithel Cells (Auto) 2.1 Urine Bacteria (Auto) 8170.0 ASSESSMENT/PLAN: patient is a 73 year old male who was sent to [facility] by his PCP for septic workup. patient reports that last Friday, he was in his neighbor's home and was told that he was acting differently and confused. He was taken via ambulance to [facility] but per patient, was not admitted nor given antibiotics. He was sent home. When he followed up with his PCP, he was sent to the ED for further evaluation. Patient has a past medical history of iliostomy placement 2 years ago for bladder cancer, TIA (no residual deficits), PE and frequent UTIs. On exam, patient denies current confusion, memory loss, headaches, changes in bowel habits, chest pain or shortness of breath. No abdominal pain, no recent travel or sick contacts. In the past microbiology, patient is noted to have resistant UTIs (E coli, Kleb, VR Fecium) and blood cultures in 04/2018, treated with Vanc and zosyn. ID: UTI, complicated UTI Rule out sepsis Sepsis criteria not met on admission, however patient with history of bladder cancer. and a positive UA. Noted to be confused over the weekend and was sent to another hospital over the past weekend. Urine and blood cultures drawn in the ED prior to initiation of antibiotics. history of sepsis and had +blood culture 04/2018. Will order: - NS @100cc/hr - ID consult - Zosyn given in the ED, ID consulted for further recommendations Started on Zosyn, continue Appreciate ID consult Monitor CBC, BMP Monitor vitals, fevers consider urology consult Ileal conduit stoma stomal care. Endocrine: Diabetes. controlled. monitor BGMS. hmga1c in a.m. Cardiology: HLD. continue home medications with close monitoring of liver function HTN: continue home medications. Pulmonary h/o PE Previously on xarelto which was stopped. Patient now on ASA 325mg daily Neuro: TIA: continue home medications GI: IBS, irritable bowel syndrome. does not report any current symptoms. fen NS @ 100cc/hr Replete lytes prn, daily electrolytes low salt diet prophy: SCDS, heparin bid Visit type - Emergency Visit Emergency Visit: Yes Care time: The patient presented to the Emergency Department on the above date and was hospitalized for further evaluation of their emergent condition. - New Patient This patient is new to me today: Yes Date on this admission: 10/23/18 - Critical Care Critical Care patient: No
[2018-10-23] MEDS ORDERED: SODIUM CHLORIDE 1,000 ML IV SCH (19:15)
[2018-10-23] MEDS ORDERED: ALBUTEROL SO4 0.083% IH SOL 2.5 MG/3 ML VIAL.NEB. NEB PRN (19:25)
[2018-10-23] MEDS ORDERED: ACETAMINOPHEN 325 MG TABLET (FP) PO PRN (19:25)
[2018-10-23] MEDS: INSULIN SLIDING SCALE (NOVOLOG) 1 VIAL SQ SCH (21:30)
[2018-10-23] MEDS ORDERED: PATIENT'S OWN MEDICATION (NON-FORMULARY) (Mesalamine [Mesalamine] 1.2 GM) PO SCH (22:00)
[2018-10-23] MEDS: azaTHIOprine 50 MG TABLET PO SCH (22:58)
[2018-10-23 23:49] VITALS: BMI 30.8
[2018-10-24] MEDS ORDERED: PIPERACILLIN/TAZOBACTAM 2.25 GM VIAL IVPB ONE (01:21)
[2018-10-24] MEDS ORDERED: DEXTROSE 5%-WATER - 50 ML IVPB ONE (01:22)
[2018-10-24] MEDS ORDERED: PIPERACILLIN/TAZOB 2.25 GM 2.25 GM in DEXTROSE 5%-WATER - 50 ML IVPB ONE (02:00)
[2018-10-24] MEDS: INSULIN SLIDING SCALE (NOVOLOG) 1 VIAL SQ SCH ×2 (06:20→12:03)
[2018-10-24 09:03] LABS: HEMOGLOBIN 9.3 GM/dL (11.7-16.9); MCH 30.9 pg (25.7-33.7); MCHC 33.2 g/dl (32.0-35.9); MEAN PLT VOLUME 8.2 fl (7.5-11.1); PLATELET COUNT 132 K/MM3 (134-434); RBC 3.01 M/mm3 (4.00-5.60); RDW 15.6 % (11.9-15.9); WHITE BLOOD COUNT 2.9 K/mm3 (4.0-10.0)
[2018-10-24] MEDS ORDERED: PT OWN MED DRAWER 7, Y5N ONE ×2 (09:06→10:39)
[2018-10-24] MEDS: LOSARTAN POTASSIUM 50 MG TABLET (FP) PO SCH (09:26)
[2018-10-24] MEDS: HEPARIN NA (PORCINE) 5,000 UNITS/ML 1ML VIAL SQ SCH ×2 (09:26→22:04)
[2018-10-24] MEDS: metoPROLOL SUCCINATE 25 MG TAB.SR.24H (FP) PO SCH (09:27)
[2018-10-24] MEDS: azaTHIOprine 50 MG TABLET PO SCH ×2 (09:27→22:04)
[2018-10-24] MEDS: MULTIVITAMINS (DAILY MVI) TABLET (FP) PO SCH (09:27)
[2018-10-24 09:34] LABS: INR 1.36 (0.83-1.09); PROTHROMBIN TIME (PATIENT) 16.1 SEC (9.7-13.0)
[2018-10-24 10:21] LABS: ALBUMIN 2.8 g/dl (3.4-5.0); BILIRUBIN,TOTAL 0.5 mg/dL (0.2-1); CALCIUM 8.2 mg/dL (8.5-10.1); MAGNESIUM 2.2 mg/dL (1.8-2.4); POTASSIUM 4.1 mmol/L (3.5-5.1); TOT PROT 6.2 g/dl (6.4-8.2)
--- NOTE | 2018-10-24 11:38 | PN ---
Progress Note, Physician Chief Complaint: Complicated UTI History of Present Illness: NAD Started on Ertapenem Hx of ESBL in urine - Current Medication List Current Medications: Active Medications Acetaminophen (Tylenol -) 650 mg PO Q6H PRN PRN Reason: FEVER Albuterol Sulfate (Ventolin 0.083% Nebulizer Soln -) 1 amp NEB Q6H PRN PRN Reason: SHORT OF BREATH/WHEEZING Atorvastatin Calcium (Lipitor -) 40 mg PO HS [facility] Azathioprine (Imuran -) 50 mg PO BID [facility] Last Admin: 10/24/18 09:27 Dose: 50 mg Calcium/Vitamin D (Oscal 250 Mg+D -) 2 tab PO DAILY [facility] Cyanocobalamin (Vitamin B12 -) 100 mcg PO DAILY [facility] Heparin Sodium (Porcine) (Heparin -) 5,000 unit SQ BID [facility] Last Admin: 10/24/18 09:26 Dose: 5,000 unit Sodium Chloride (Normal Saline -) 1,000 mls @ 100 mls/hr IV ASDIR [facility] Last Admin: 10/23/18 21:30 Dose: 100 mls/hr Ertapenem 1 gm/ Sodium (Chloride) 50 mls @ 100 mls/hr IVPB DAILY [facility] Insulin Aspart (Novolog Vial Sliding Scale -) 1 vial SQ ACHS [facility]; Protocol Last Admin: 10/24/18 06:20 Dose: 2 units Losartan Potassium (Cozaar -) 25 mg PO DAILY [facility] Last Admin: 10/24/18 09:26 Dose: 25 mg Metoprolol Succinate (Toprol Xl -) 25 mg PO DAILY [facility] Last Admin: 10/24/18 09:27 Dose: 25 mg Multivitamins/Minerals/Vitamin C (Tab-A-Vit -) 1 tab PO DAILY [facility] Last Admin: 10/24/18 09:27 Dose: 1 tab Non-Formulary Medication (Mesalamine [Mesalamine]) 1.2 gm PO BID [facility] - Objective Vital Signs: Vital Signs Temperature 98.8 F 10/24/18 08:36 Pulse Rate 68 10/24/18 08:36 Respiratory Rate 18 10/24/18 08:36 Blood Pressure 124/77 10/24/18 08:36 O2 Sat by Pulse Oximetry (%) 97 10/24/18 10:00 Constitutional: Yes: Well Nourished, No Distress, Calm Cardiovascular: Yes: Regular Rate and Rhythm Respiratory: Yes: Regular Gastrointestinal: Yes: Normal Bowel Sounds, Soft Genitourinary: Yes: WNL, Other (right ileal conduit) Musculoskeletal: Yes: Muscle Weakness Extremities: Yes: WNL Edema: No Peripheral Pulses WNL: Yes Neurological: Yes: Alert, Oriented Psychiatric: Yes: Alert, Oriented Labs: CBC, BMP 10/24/18 08:40 10/24/18 05:15 INR, PTT INR 1.36 (0.83-1.09) H 10/24/18 08:40 Problem List - Problems (1) UTI (urinary tract infection) Assessment/Plan: -UC pending -ID on board -Started on IV ertapenem -afebrile Code(s): N39.0 - URINARY TRACT INFECTION, SITE NOT SPECIFIED Qualifiers: Urinary tract infection type: site unspecified Hematuria presence: with hematuria Qualified Code(s): N39.0 - Urinary tract infection, site not specified; R31.9 - Hematuria, unspecified (2) Change in mental status Assessment/Plan: -mildly improved Code(s): R41.82 - ALTERED MENTAL STATUS, UNSPECIFIED (3) Sepsis Assessment/Plan: -low grad fever overnight -ID on board -IV abx -Await cultures -Lactic acidosis resolved Code(s): A41.9 - SEPSIS, UNSPECIFIED ORGANISM Qualifiers: Sepsis type: sepsis due to unspecified organism Qualified Code(s): A41.9 - Sepsis, unspecified organism (4) Anemia Assessment/Plan: -check stool OB -Check Iron studies, thyroid, B 12 -Monitor trend Code(s): D64.9 - ANEMIA, UNSPECIFIED Assessment/Plan see problem list Physical therapy
--- NOTE | 2018-10-24 11:43 | EKG ---
Test Reason : Blood Pressure : / mmHG Vent. Rate : 074 BPM Atrial Rate : 074 BPM P-R Int : 152 ms QRS Dur : 088 ms QT Int : 380 ms P-R-T Axes : 020 007 010 degrees QTc Int : 421 ms NORMAL SINUS RHYTHM T WAVE ABNORMALITY, CONSIDER LATERAL ISCHEMIA ABNORMAL ECG WHEN COMPARED WITH ECG OF 29-APR-2018 09:53, NO SIGNIFICANT CHANGE WAS FOUND Confirmed by DACIA SALEH, RASHID ([id number]) on 10/24/2018 11:42:49 AM Referred By: Confirmed By:RASHID PEDERSON MD
[2018-10-24] MEDS: CYANOCOBALAMIN (VITAMIN B-12) 100 MCG TABLET PO SCH (11:45)
[2018-10-24] MEDS: CALCIUM 250MG/VIT-D 125 UNITS 1 COMBO TABLET PO SCH (11:45)
[2018-10-24] MEDS: ERTAPENEM SODIUM 1 GM in SODIUM CHLORIDE 50 ML IVPB SCH (11:45)
[2018-10-24] MEDS: SODIUM CHLORIDE 1,000 ML IV SCH (13:05)
--- NOTE | 2018-10-24 19:21 | PN ---
Progress Note (short form) - Note Progress Note: ID CONSULT DICTATED TOXIC METABOLIC ENCEPHALOPATHY RECURRENT UTIS HX ESBL EMPIRIC ERTAPENEM PENDING C/S
[2018-10-24] MEDS: ATORVASTATIN CA 40 MG TABLET (FP) PO SCH (22:04)
[2018-10-25 07:41] LABS: BASO % 0.3 % (0-2.0); EOS % 2.2 % (0-4.5); HEMATOCRIT 27.6 % (35.4-49); HEMOGLOBIN 9.1 GM/dL (11.7-16.9); LYMPH % 21.7 % (8-40); MCH 30.5 pg (25.7-33.7); MCHC 32.9 g/dl (32.0-35.9); MEAN CELL VOLUME 92.7 fl (80-96); MEAN PLT VOLUME 9.2 fl (7.5-11.1); MONO % 12.7 % (3.8-10.2); NEUT % 63.1 % (42.8-82.8); PLATELET COUNT 152 K/MM3 (134-434); RBC 2.98 M/mm3 (4.00-5.60); RDW 15.7 % (11.9-15.9); WHITE BLOOD COUNT 2.7 K/mm3 (4.0-10.0)
[2018-10-25 08:07] LABS: ALBUMIN 2.6 g/dl (3.4-5.0); BILIRUBIN,TOTAL 0.6 mg/dL (0.2-1); POTASSIUM 4.1 mmol/L (3.5-5.1)
[2018-10-25 08:08] LABS: SERUM IRON SATURATION 16 % (15-55); TOTAL IRON BINDING CAPACITY 177 ug/dL (250-450); UIBC 149 ug/dL (111-343)
[2018-10-25] MEDS ORDERED: PT OWN MED DRAWER 7, Y5N ONE ×2 (09:59→21:01)
--- NOTE | 2018-10-25 09:59 | PN ---
Progress Note, Physician Chief Complaint: Complicated UTI History of Present Illness: NAD Started on Ertapenem Hx of ESBL in urine - Current Medication List Current Medications: Active Medications Acetaminophen (Tylenol -) 650 mg PO Q6H PRN PRN Reason: FEVER Albuterol Sulfate (Ventolin 0.083% Nebulizer Soln -) 1 amp NEB Q6H PRN PRN Reason: SHORT OF BREATH/WHEEZING Atorvastatin Calcium (Lipitor -) 40 mg PO HS [facility] Last Admin: 10/24/18 22:04 Dose: 40 mg Azathioprine (Imuran -) 50 mg PO BID [facility] Last Admin: 10/24/18 22:04 Dose: 50 mg Calcium/Vitamin D (Oscal 250 Mg+D -) 2 tab PO DAILY [facility] Last Admin: 10/24/18 11:45 Dose: 2 tab Cyanocobalamin (Vitamin B12 -) 100 mcg PO DAILY [facility] Last Admin: 10/24/18 11:45 Dose: 100 mcg Heparin Sodium (Porcine) (Heparin -) 5,000 unit SQ BID [facility] Last Admin: 10/24/18 22:04 Dose: 5,000 unit Ertapenem 1 gm/ Sodium (Chloride) 50 mls @ 100 mls/hr IVPB DAILY [facility] Last Admin: 10/24/18 11:45 Dose: 100 mls/hr Sodium Chloride (Normal Saline -) 1,000 mls @ 50 mls/hr IV ASDIR [facility] Last Admin: 10/24/18 13:05 Dose: 50 mls/hr Losartan Potassium (Cozaar -) 25 mg PO DAILY [facility] Last Admin: 10/24/18 09:26 Dose: 25 mg Metoprolol Succinate (Toprol Xl -) 25 mg PO DAILY [facility] Last Admin: 10/24/18 09:27 Dose: 25 mg Multivitamins/Minerals/Vitamin C (Tab-A-Vit -) 1 tab PO DAILY [facility] Last Admin: 10/24/18 09:27 Dose: 1 tab Non-Formulary Medication (Mesalamine [Mesalamine]) 1.2 gm PO BID [facility] - Objective Vital Signs: Vital Signs Temperature 97.5 F L 10/25/18 06:06 Pulse Rate 60 10/25/18 06:06 Respiratory Rate 20 10/25/18 06:06 Blood Pressure 125/72 10/25/18 06:06 O2 Sat by Pulse Oximetry (%) 98 10/24/18 21:00 Constitutional: Yes: Well Nourished, No Distress, Calm Cardiovascular: Yes: Regular Rate and Rhythm Respiratory: Yes: Regular Gastrointestinal: Yes: Normal Bowel Sounds, Soft Musculoskeletal: Yes: WNL Extremities: Yes: WNL Edema: No Peripheral Pulses WNL: Yes Neurological: Yes: Alert, Oriented Psychiatric: Yes: Alert, Oriented Labs: CBC, BMP 10/25/18 07:00 10/25/18 07:00 INR, PTT INR 1.36 (0.83-1.09) H 10/24/18 08:40 Problem List - Problems (1) UTI (urinary tract infection) Assessment/Plan: -UC: Microbiology 10/23/18 16:21 Urine - Urine Clean Catch Urine Culture - Preliminary Lactose Fermenting Neg Bacilli Pending Organism 10/23/18 18:17 Blood - Peripheral Venous Blood Culture - Preliminary NO GROWTH OBTAINED AFTER 24 HOURS, INCUBATION TO CONTINUE FOR 4 DAYS. 10/23/18 18:17 Blood - Peripheral Venous Blood Culture - Preliminary NO GROWTH OBTAINED AFTER 24 HOURS, INCUBATION TO CONTINUE FOR 4 DAYS. -ID on board -Started on IV ertapenem for history of ESBL UTI's -afebrile Code(s): N39.0 - URINARY TRACT INFECTION, SITE NOT SPECIFIED Qualifiers: Urinary tract infection type: site unspecified Hematuria presence: with hematuria Qualified Code(s): N39.0 - Urinary tract infection, site not specified; R31.9 - Hematuria, unspecified (2) Change in mental status Assessment/Plan: -mildly improved Code(s): R41.82 - ALTERED MENTAL STATUS, UNSPECIFIED (3) Sepsis Assessment/Plan: -low grad fever overnight -ID on board -IV abx -Cultures: Microbiology 10/23/18 16:21 Urine - Urine Clean Catch Urine Culture - Preliminary Lactose Fermenting Neg Bacilli Pending Organism 10/23/18 18:17 Blood - Peripheral Venous Blood Culture - Preliminary NO GROWTH OBTAINED AFTER 24 HOURS, INCUBATION TO CONTINUE FOR 4 DAYS. 10/23/18 18:17 Blood - Peripheral Venous Blood Culture - Preliminary NO GROWTH OBTAINED AFTER 24 HOURS, INCUBATION TO CONTINUE FOR 4 DAYS. -Lactic acidosis resolved Code(s): A41.9 - SEPSIS, UNSPECIFIED ORGANISM Qualifiers: Sepsis type: sepsis due to unspecified organism Qualified Code(s): A41.9 - Sepsis, unspecified organism (4) Anemia Assessment/Plan: -check stool OB -Iron studies, thyroid, B 12 normal -Monitor trend Code(s): D64.9 - ANEMIA, UNSPECIFIED Assessment/Plan see problem list Physical therapy
[2018-10-25] MEDS: SODIUM CHLORIDE 1,000 ML IV SCH ×2 (10:06→20:49)
[2018-10-25] MEDS: ERTAPENEM SODIUM 1 GM in SODIUM CHLORIDE 50 ML IVPB SCH (10:07)
[2018-10-25] MEDS: metoPROLOL SUCCINATE 25 MG TAB.SR.24H (FP) PO SCH (10:07)
[2018-10-25] MEDS: MULTIVITAMINS (DAILY MVI) TABLET (FP) PO SCH (10:07)
[2018-10-25] MEDS: LOSARTAN POTASSIUM 50 MG TABLET (FP) PO SCH (10:08)
[2018-10-25] MEDS: CALCIUM 250MG/VIT-D 125 UNITS 1 COMBO TABLET PO SCH (10:08)
[2018-10-25] MEDS: CYANOCOBALAMIN (VITAMIN B-12) 100 MCG TABLET PO SCH (10:08)
[2018-10-25] MEDS: azaTHIOprine 50 MG TABLET PO SCH ×3 (10:08→21:59)
[2018-10-25] MEDS: HEPARIN NA (PORCINE) 5,000 UNITS/ML 1ML VIAL SQ SCH ×2 (10:09→21:51)
[2018-10-25] MEDS: ATORVASTATIN CA 40 MG TABLET (FP) PO SCH (21:51)
[2018-10-26] MEDS ORDERED: PT OWN MED DRAWER 7, Y5N ONE ×2 (09:04→21:08)
[2018-10-26] MEDS: CYANOCOBALAMIN (VITAMIN B-12) 100 MCG TABLET PO SCH (09:22)
[2018-10-26] MEDS: LOSARTAN POTASSIUM 50 MG TABLET (FP) PO SCH (09:22)
[2018-10-26] MEDS: MULTIVITAMINS (DAILY MVI) TABLET (FP) PO SCH (09:22)
[2018-10-26] MEDS: azaTHIOprine 50 MG TABLET PO SCH ×2 (09:22→21:12)
[2018-10-26] MEDS: CALCIUM 250MG/VIT-D 125 UNITS 1 COMBO TABLET PO SCH (09:22)
[2018-10-26] MEDS: HEPARIN NA (PORCINE) 5,000 UNITS/ML 1ML VIAL SQ SCH ×2 (09:23→21:12)
[2018-10-26] MEDS: metoPROLOL SUCCINATE 25 MG TAB.SR.24H (FP) PO SCH (09:23)
[2018-10-26] MEDS: ERTAPENEM SODIUM 1 GM in SODIUM CHLORIDE 50 ML IVPB SCH (09:31)
--- NOTE | 2018-10-26 11:56 | PN ---
Progress Note, Physician Chief Complaint: Uncomplicated UTI History of Present Illness: Previous notes and events reviewed awake and alert NAD denies hematuria and dysuria - Current Medication List Current Medications: Active Medications Acetaminophen (Tylenol -) 650 mg PO Q6H PRN PRN Reason: FEVER Albuterol Sulfate (Ventolin 0.083% Nebulizer Soln -) 1 amp NEB Q6H PRN PRN Reason: SHORT OF BREATH/WHEEZING Atorvastatin Calcium (Lipitor -) 40 mg PO HS [facility] Last Admin: 10/25/18 21:51 Dose: 40 mg Azathioprine (Imuran -) 50 mg PO BID [facility] Last Admin: 10/26/18 09:22 Dose: 50 mg Calcium/Vitamin D (Oscal 250 Mg+D -) 2 tab PO DAILY [facility] Last Admin: 10/26/18 09:22 Dose: 2 tab Cyanocobalamin (Vitamin B12 -) 100 mcg PO DAILY [facility] Last Admin: 10/26/18 09:22 Dose: 100 mcg Heparin Sodium (Porcine) (Heparin -) 5,000 unit SQ BID [facility] Last Admin: 10/26/18 09:23 Dose: 5,000 unit Ertapenem 1 gm/ Sodium (Chloride) 50 mls @ 100 mls/hr IVPB DAILY [facility] Last Admin: 10/26/18 09:31 Dose: 100 mls/hr Sodium Chloride (Normal Saline -) 1,000 mls @ 50 mls/hr IV ASDIR [facility] Last Admin: 10/25/18 20:49 Dose: Not Given Losartan Potassium (Cozaar -) 25 mg PO DAILY [facility] Last Admin: 10/26/18 09:22 Dose: 25 mg Metoprolol Succinate (Toprol Xl -) 25 mg PO DAILY [facility] Last Admin: 10/26/18 09:23 Dose: 25 mg Multivitamins/Minerals/Vitamin C (Tab-A-Vit -) 1 tab PO DAILY [facility] Last Admin: 10/26/18 09:22 Dose: 1 tab Non-Formulary Medication (Mesalamine [Mesalamine]) 1.2 gm PO BID [facility] - Objective Vital Signs: Vital Signs Temperature 97.7 F 10/26/18 09:00 Pulse Rate 71 10/26/18 09:00 Respiratory Rate 18 10/26/18 09:00 Blood Pressure 130/70 10/26/18 09:00 O2 Sat by Pulse Oximetry (%) 98 10/26/18 08:15 Constitutional: Yes: No Distress, Calm Eyes: Yes: Conjunctiva Clear HENT: Yes: Atraumatic Cardiovascular: Yes: Regular Rate and Rhythm Respiratory: Yes: Regular, CTA Bilaterally Gastrointestinal: Yes: Normal Bowel Sounds, Soft Musculoskeletal: Yes: WNL Extremities: Yes: WNL Edema: No Neurological: Yes: Alert, Oriented Psychiatric: Yes: Alert, Oriented Labs: CBC, BMP 10/25/18 07:00 10/25/18 07:00 INR, PTT INR 1.36 (0.83-1.09) H 10/24/18 08:40 Microbiology 10/23/18 16:21 Urine - Urine Clean Catch Urine Culture - Preliminary Lactose Fermenting Neg Bacilli Pending Organism 10/23/18 18:17 Blood - Peripheral Venous Blood Culture - Preliminary NO GROWTH OBTAINED AFTER 48 HOURS, INCUBATION TO CONTINUE FOR 3 DAYS. 10/23/18 18:17 Blood - Peripheral Venous Blood Culture - Preliminary NO GROWTH OBTAINED AFTER 48 HOURS, INCUBATION TO CONTINUE FOR 3 DAYS. Problem List - Problems (1) Anemia Assessment/Plan: -Stool OB pending -anemia panel reviewed -Hg 9.1 -monitor Hg daily, transfuse for Hg <8.0 Code(s): D64.9 - ANEMIA, UNSPECIFIED (2) Complicated UTI (urinary tract infection) Assessment/Plan: -ID on board -no leukocytosis -afebrile -IV hydration -IV Ertapenem Microbiology 10/23/18 16:21 Urine - Urine Clean Catch Urine Culture - Preliminary Lactose Fermenting Neg Bacilli Pending Organism 10/23/18 18:17 Blood - Peripheral Venous Blood Culture - Preliminary NO GROWTH OBTAINED AFTER 48 HOURS, INCUBATION TO CONTINUE FOR 3 DAYS. 10/23/18 18:17 Blood - Peripheral Venous Blood Culture - Preliminary NO GROWTH OBTAINED AFTER 48 HOURS, INCUBATION TO CONTINUE FOR 3 DAYS. Code(s): N39.0 - URINARY TRACT INFECTION, SITE NOT SPECIFIED (3) HLD (hyperlipidemia) Assessment/Plan: -Atorvastatin Code(s): E78.5 - HYPERLIPIDEMIA, UNSPECIFIED Qualifiers: Hyperlipidemia type: unspecified Qualified Code(s): E78.5 - Hyperlipidemia , unspecified (4) HTN (hypertension) Assessment/Plan: -low Na diet -Cozaar and Toprol XL Code(s): I10 - ESSENTIAL (PRIMARY) HYPERTENSION Qualifiers: Hypertension type: unspecified Qualified Code(s): I10 - Essential (primary ) hypertension Assessment/Plan see problem list dvt ppx
--- NOTE | 2018-10-26 17:47 | CONS ---
DATE OF CONSULTATION: DATE OF DICTATION: 10/26/2018 INFECTIOUS DISEASE CONSULTATION HISTORY OF PRESENT ILLNESS: The patient is a 73-year-old male with a history of bladder CA status post ileal conduit, evaluated for recurrent urinary tract infection. Patient has had multiple hospitalizations in the past for recurrent urinary tract infections accompanied by toxic metabolic encephalopathy. He was last admitted in April of 2018. Over the wintertime, he had been placed in prophylactic nitrofurantoin and had been doing well. The patient reports being at a function on Thursday, October 18, 2018. He was noted to be confused by friends and was taken to [facility]. He reports being evaluated there and being discharged, or signing out against medical advice. He was seen in followup by his primary care physician and was advised evaluation in the emergency room at [facility]. At [facility] on October 23, he was evaluated and noted to have cloudy urine. He was admitted for further evaluation. He denies any associated high-grade fever or shaking chills, no complaints of flank pain. PAST MEDICAL HISTORY: Positive for hypertension, hyperlipidemia, bladder cancer, TIA. PAST SURGICAL HISTORY: Status post ileostomy 2 years ago for bladder cancer. ALLERGIES: No known drug allergies. MEDICATION: Include Cozaar, Toprol, Lipitor, Imuran, Ecotrin, nitrofurantoin. SOCIAL HISTORY: Lives in the community. He is a nonsmoker, nondrinker. LABORATORY DATA: White count 5.3, hematocrit 35.2, platelet count 182. BUN 23, creatinine 1.0. Urinalysis 413 white cells. Urine culture pending. Blood cultures pending. PHYSICAL EXAMINATION: General: On exam, he is awake and responsive, in no acute distress. Vital signs: Temperature 99.6, blood pressure 128/69, pulse 80 regular, respirations 20 per minute. HEENT: Sclerae anicteric. Cardiovascular: Heart sounds S1, S2. Lungs: Clear bilaterally. Abdomen: Soft, no flank tenderness. Urine in the ileostomy appears slightly cloudy. Extremities: Negative for edema. IMPRESSION: 1. Toxic metabolic encephalopathy possibly secondary to urinary tract focus. 2. Rule out recurrent urinary tract infection. 3. History of bladder carcinoma status post ileostomy. 4. 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 Pending sepsis workup, empiric antibiotic coverage with ertapenem. Contact precautions. Will follow. Thank you for the kind referral. JONO GUERRA M.D. SHELBIE/[id number]
[2018-10-26] MEDS: SODIUM CHLORIDE 1,000 ML IV SCH (21:12)
[2018-10-26] MEDS: ATORVASTATIN CA 40 MG TABLET (FP) PO SCH (21:12)
[2018-10-27 05:27] VITALS: TEMP 98
[2018-10-27 07:43] LABS: HEMATOCRIT 28.6 % (35.4-49); HEMOGLOBIN 9.5 GM/dL (11.7-16.9); MCH 30.8 pg (25.7-33.7); MCHC 33.1 g/dl (32.0-35.9); MEAN CELL VOLUME 93.2 fl (80-96); MEAN PLT VOLUME 9.3 fl (7.5-11.1); PLATELET COUNT 154 K/MM3 (134-434); RBC 3.07 M/mm3 (4.00-5.60); RDW 15.2 % (11.9-15.9); WHITE BLOOD COUNT 2.5 K/mm3 (4.0-10.0)
[2018-10-27 08:15] LABS: ALBUMIN 2.7 g/dl (3.4-5.0); BILIRUBIN,TOTAL 0.5 mg/dL (0.2-1); CALCIUM 8.8 mg/dL (8.5-10.1); POTASSIUM 4.2 mmol/L (3.5-5.1)
[2018-10-27] MEDS: ERTAPENEM SODIUM 1 GM in SODIUM CHLORIDE 50 ML IVPB SCH (10:21)
[2018-10-27] MEDS: CALCIUM 250MG/VIT-D 125 UNITS 1 COMBO TABLET PO SCH (10:22)
[2018-10-27] MEDS: HEPARIN NA (PORCINE) 5,000 UNITS/ML 1ML VIAL SQ SCH (10:22)
[2018-10-27] MEDS: LOSARTAN POTASSIUM 50 MG TABLET (FP) PO SCH (10:22)
[2018-10-27] MEDS: metoPROLOL SUCCINATE 25 MG TAB.SR.24H (FP) PO SCH (10:23)
[2018-10-27] MEDS: MULTIVITAMINS (DAILY MVI) TABLET (FP) PO SCH (10:23)
[2018-10-27] MEDS: CYANOCOBALAMIN (VITAMIN B-12) 100 MCG TABLET PO SCH (10:23)
[2018-10-27] MEDS: azaTHIOprine 50 MG TABLET PO SCH (10:23)
[2018-10-27 10:54] VITALS: BP 134/84; PULSE 81
--- NOTE | 2018-10-27 11:22 | PN ---
Progress Note, Physician Chief Complaint: Complicated UTI History of Present Illness: NAD Started on Ertapenem ESBL in urine Final UC pending - Current Medication List Current Medications: Active Medications Acetaminophen (Tylenol -) 650 mg PO Q6H PRN PRN Reason: FEVER Albuterol Sulfate (Ventolin 0.083% Nebulizer Soln -) 1 amp NEB Q6H PRN PRN Reason: SHORT OF BREATH/WHEEZING Atorvastatin Calcium (Lipitor -) 40 mg PO HS [facility] Last Admin: 10/26/18 21:12 Dose: 40 mg Azathioprine (Imuran -) 50 mg PO BID [facility] Last Admin: 10/27/18 10:23 Dose: 50 mg Calcium/Vitamin D (Oscal 250 Mg+D -) 2 tab PO DAILY [facility] Last Admin: 10/27/18 10:22 Dose: 2 tab Cyanocobalamin (Vitamin B12 -) 100 mcg PO DAILY [facility] Last Admin: 10/27/18 10:23 Dose: 100 mcg Heparin Sodium (Porcine) (Heparin -) 5,000 unit SQ BID [facility] Last Admin: 10/27/18 10:22 Dose: 5,000 unit Ertapenem 1 gm/ Sodium (Chloride) 50 mls @ 100 mls/hr IVPB DAILY [facility] Last Admin: 10/27/18 10:21 Dose: 100 mls/hr Sodium Chloride (Normal Saline -) 1,000 mls @ 50 mls/hr IV ASDIR [facility] Last Admin: 10/26/18 21:12 Dose: 50 mls/hr Losartan Potassium (Cozaar -) 25 mg PO DAILY [facility] Last Admin: 10/27/18 10:22 Dose: 25 mg Metoprolol Succinate (Toprol Xl -) 25 mg PO DAILY [facility] Last Admin: 10/27/18 10:23 Dose: 25 mg Multivitamins/Minerals/Vitamin C (Tab-A-Vit -) 1 tab PO DAILY [facility] Last Admin: 10/27/18 10:23 Dose: 1 tab Non-Formulary Medication (Mesalamine [Mesalamine]) 1.2 gm PO BID [facility] - Objective Vital Signs: Vital Signs Temperature 98.0 F 10/27/18 05:00 Pulse Rate 81 10/27/18 09:00 Respiratory Rate 18 10/27/18 09:00 Blood Pressure 134/84 10/27/18 09:00 O2 Sat by Pulse Oximetry (%) 98 10/26/18 21:00 Constitutional: Yes: Well Nourished, No Distress, Calm Cardiovascular: Yes: Regular Rate and Rhythm Respiratory: Yes: Regular Gastrointestinal: Yes: Normal Bowel Sounds, Soft Musculoskeletal: Yes: WNL Extremities: Yes: WNL Edema: No Peripheral Pulses WNL: Yes Neurological: Yes: Alert, Oriented Psychiatric: Yes: Alert, Oriented Labs: CBC, BMP 10/27/18 07:00 10/27/18 07:00 INR, PTT INR 1.36 (0.83-1.09) H 10/24/18 08:40 Problem List - Problems (1) UTI (urinary tract infection) Assessment/Plan: -UC: Microbiology 10/23/18 16:21 Urine - Urine Clean Catch Urine Culture - Preliminary Lactose Fermenting Neg Bacilli Pending Organism 10/23/18 18:17 Blood - Peripheral Venous Blood Culture - Preliminary NO GROWTH OBTAINED AFTER 24 HOURS, INCUBATION TO CONTINUE FOR 4 DAYS. 10/23/18 18:17 Blood - Peripheral Venous Blood Culture - Preliminary NO GROWTH OBTAINED AFTER 24 HOURS, INCUBATION TO CONTINUE FOR 4 DAYS. -ID on board -Started on IV ertapenem for history of ESBL UTI's -afebrile Code(s): N39.0 - URINARY TRACT INFECTION, SITE NOT SPECIFIED Qualifiers: Urinary tract infection type: site unspecified Hematuria presence: with hematuria Qualified Code(s): N39.0 - Urinary tract infection, site not specified; R31.9 - Hematuria, unspecified (2) Change in mental status Assessment/Plan: -mildly improved Code(s): R41.82 - ALTERED MENTAL STATUS, UNSPECIFIED (3) Sepsis Assessment/Plan: -low grad fever overnight -ID on board -IV abx -Cultures: Microbiology 10/23/18 16:21 Urine - Urine Clean Catch Urine Culture - Preliminary Lactose Fermenting Neg Bacilli Pending Organism 10/23/18 18:17 Blood - Peripheral Venous Blood Culture - Preliminary NO GROWTH OBTAINED AFTER 24 HOURS, INCUBATION TO CONTINUE FOR 4 DAYS. 10/23/18 18:17 Blood - Peripheral Venous Blood Culture - Preliminary NO GROWTH OBTAINED AFTER 24 HOURS, INCUBATION TO CONTINUE FOR 4 DAYS. -Lactic acidosis resolved Code(s): A41.9 - SEPSIS, UNSPECIFIED ORGANISM Qualifiers: Sepsis type: sepsis due to unspecified organism Qualified Code(s): A41.9 - Sepsis, unspecified organism (4) Anemia Assessment/Plan: -check stool OB -Iron studies, thyroid, B 12 normal -Monitor trend Code(s): D64.9 - ANEMIA, UNSPECIFIED (5) Toxic metabolic encephalopathy Code(s): G92 - TOXIC ENCEPHALOPATHY Assessment/Plan See problem list Physical therapy
--- NOTE | 2018-10-27 11:58 | DS ---
Physical Examination Vital Signs: Vital Signs Temperature 98.0 F 10/27/18 05:00 Pulse Rate 81 10/27/18 09:00 Respiratory Rate 18 10/27/18 09:00 Blood Pressure 134/84 10/27/18 09:00 O2 Sat by Pulse Oximetry (%) 98 10/26/18 21:00 Findings/Remarks: patient is a 73 year old male who was sent to [facility] by his PCP for septic workup. patient reports that last Friday, he was in his neighbor's home and was told that he was acting differently and confused. He was taken via ambulance to [facility] but per patient, was not admitted nor given antibiotics. He was sent home. When he followed up with his PCP, he was sent to the ED for further evaluation. Patient has a past medical history of iliostomy placement 2 years ago for bladder cancer, TIA (no residual deficits) and frequent UTIs. On exam, patient denies current confusion, memory loss, headaches, changes in bowel habits, chest pain or shortness of breath. No abdominal pain, no recent travel or sick contacts. Patient is alert and oriented reports concerns about keeping his stoma clean to avoid UTIs. In the past microbiology, patient is noted to have resistant UTIs (E coli, Kleb, VR Fecium) and blood cultures in 04/2018, treated with Vanc and zosyn. Constitutional: Yes: Well Nourished, No Distress, Calm Cardiovascular: Yes: Regular Rate and Rhythm Respiratory: Yes: Regular Gastrointestinal: Yes: Normal Bowel Sounds, Soft, Abdomen, Obese Musculoskeletal: Yes: WNL Extremities: Yes: WNL Edema: No Peripheral Pulses WNL: Yes Neurological: Yes: Alert, Oriented Psychiatric: Yes: Alert, Oriented Labs: CBC, BMP 10/27/18 07:00 10/27/18 07:00 Discharge Summary Reason For Visit: COMPLICATED UTI Current Active Problems Anemia (Acute) UTI (urinary tract infection) (Acute) Hospital Course: Laboratory Last Values WBC 2.5 K/mm3 (4.0-10.0) L 10/27/18 07:00 RBC 3.07 M/mm3 (4.00-5.60) L 10/27/18 07:00 Hgb 9.5 GM/dL (11.7-16.9) L 10/27/18 07:00 Hct 28.6 % (35.4-49) L 10/27/18 07:00 MCV 93.2 fl (80-96) 10/27/18 07:00 MCH 30.8 pg (25.7-33.7) 10/27/18 07:00 MCHC 33.1 g/dl (32.0-35.9) 10/27/18 07:00 RDW 15.2 % (11.9-15.9) 10/27/18 07:00 Plt Count 154 K/MM3 (134-434) 10/27/18 07:00 MPV 9.3 fl (7.5-11.1) 10/27/18 07:00 Absolute Neuts (auto) 1.7 K/mm3 (1.5-8.0) 10/25/18 07:00 Neutrophils % 63.1 % (42.8-82.8) 10/25/18 07:00 Lymphocytes % 21.7 % (8-40) D 10/25/18 07:00 Monocytes % 12.7 % (3.8-10.2) H 10/25/18 07:00 Eosinophils % 2.2 % (0-4.5) D 10/25/18 07:00 Basophils % 0.3 % (0-2.0) 10/25/18 07:00 Nucleated RBC % 0 % (0-0) 10/25/18 07:00 PT with INR 16.10 SEC (9.7-13.0) H 10/24/18 08:40 INR 1.36 (0.83-1.09) H 10/24/18 08:40 Sodium 146 mmol/L (136-145) H 10/27/18 07:00 Potassium 4.2 mmol/L (3.5-5.1) 10/27/18 07:00 Chloride 111 mmol/L (98-107) H 10/27/18 07:00 Carbon Dioxide 30 mmol/L (21-32) 10/27/18 07:00 Anion Gap 6 MMOL/L (8-16) L 10/27/18 07:00 BUN 16 mg/dL (7-18) 10/27/18 07:00 Creatinine 1.0 mg/dL (0.55-1.3) 10/27/18 07:00 Est GFR (CKD-EPI)AfAm 85.55 10/27/18 07:00 Est GFR (CKD-EPI)NonAf 73.82 10/27/18 07:00 POC Glucometer 180 UNITS (80-120) 10/24/18 11:46 Random Glucose 122 mg/dL (74-106) H 10/27/18 07:00 Hemoglobin A1c % 5.8 % (4.2-6.3) 10/24/18 05:15 Lactic Acid 1.0 mmol/L (0.4-2.0) 10/24/18 00:00 Calcium 8.8 mg/dL (8.5-10.1) 10/27/18 07:00 Magnesium 2.2 mg/dL (1.8-2.4) 10/24/18 05:15 Iron 28 ug/dL (38-169) L 10/24/18 12:20 TIBC 177 ug/dL (250-450) L 10/24/18 12:20 Iron Saturation 16 % (15-55) 10/24/18 12:20 Ferritin 912.8 ng/ml (8-388) H 10/24/18 05:15 Total Bilirubin 0.5 mg/dL (0.2-1) 10/27/18 07:00 AST 17 U/L (15-37) 10/27/18 07:00 ALT 24 U/L (13-61) 10/27/18 07:00 Alkaline Phosphatase 52 U/L (45-117) 10/27/18 07:00 Total Protein 6.0 g/dl (6.4-8.2) L 10/27/18 07:00 Albumin 2.7 g/dl (3.4-5.0) L 10/27/18 07:00 Triglycerides 100 mg/dL (0-150) 10/24/18 05:15 Cholesterol 83 mg/dL (50-200) 10/24/18 05:15 Total LDL Cholesterol 48 mg/dL (5-100) 10/24/18 05:15 HDL Cholesterol 28 mg/dL (40-60) L 10/24/18 05:15 Vitamin B12 680 pg/ml (193-986) 10/24/18 05:15 TSH 0.41 uIU/ml (0.358-3.74) D 10/24/18 05:15 Free T4 1.34 ng/dl (0.76-1.16) H 10/24/18 05:15 Urine Color Yellow 10/23/18 16:21 Urine Appearance Turbid 10/23/18 16:21 Urine pH 5.5 (5.0-8.0) 10/23/18 16:21 Ur Specific [place] 1.018 (1.010-1.035) 10/23/18 16:21 Urine Protein 1+ (NEGATIVE) H 10/23/18 16:21 Urine Glucose (UA) Negative (NEGATIVE) 10/23/18 16:21 Urine Ketones Negative (NEGATIVE) 10/23/18 16:21 Urine Blood 2+ (NEGATIVE) H 10/23/18 16:21 Urine Nitrite Positive (NEGATIVE) H 10/23/18 16:21 Urine Bilirubin Negative (NEGATIVE) 10/23/18 16:21 Urine Urobilinogen 0.2 mg/dL (0.2-1.0) 10/23/18 16:21 Ur Leukocyte Esterase 3+ (NEGATIVE) H 10/23/18 16:21 Urine WBC (Auto) 413 /hpf (0-5) 10/23/18 16:21 Urine RBC (Auto) 21 /hpf (0-4) 10/23/18 16:21 Urine Casts (Auto) 22 /lpf (0-8) 10/23/18 16:21 U Epithel Cells (Auto) 2.1 /HPF (0-5/HPF) 10/23/18 16:21 Urine Bacteria (Auto) 8170.0 /hpf (NEGATIVE) 10/23/18 16:21 Vital Signs Temp 98.0 F 10/27/18 05:00 Pulse 81 10/27/18 09:00 Resp 18 10/27/18 09:00 BP 134/84 10/27/18 09:00 Pulse Ox 98 10/26/18 21:00 Intake & Output 10/26/18 10/26/18 10/27/18 11:59 23:59 11:59 Intake Total 600 1125 1075 Output Total 1100 1300 1000 Balance -500 -175 75 Weight 92.624 kg 92.034 kg Intake: IV 600 600 Normal Saline - 1,000 ml 600 600 @ 50 mls/hr IV ASDIR [facility] Rx#:[id number] Oral 1125 475 Output: Urine 1100 1300 1000 Ileoconduit 1100 1300 1000 Other: Voiding Method Ileal Conduit (Right) Ileal Conduit (Right) Toilet # Unmeasured Voids Ileoconduit 0 1 Bowel Movement No # Bowel Movements 1 Weight Measurement Method [facility] Microbiology 10/23/18 18:17 Blood - Peripheral Venous Blood Culture - Preliminary NO GROWTH OBTAINED AFTER 72 HOURS, INCUBATION TO CONTINUE FOR 2 DAYS. 10/23/18 18:17 Blood - Peripheral Venous Blood Culture - Preliminary NO GROWTH OBTAINED AFTER 72 HOURS, INCUBATION TO CONTINUE FOR 2 DAYS. 10/23/18 16:21 Urine - Urine Clean Catch Urine Culture - Preliminary Klebsiella Pneumoniae - Esbl Pending Organism Condition: Stable - Instructions Disposition: HOME - Home Medications Comprehensive Discharge Medication List: Ambulatory Orders Cyanocobalamin [Vitamin B12 -] 1,000 mg PO DAILY 03/09/15 Multivitamins [Multivit ([facility] Formulary)] 1 tab PO DAILY 04/19/15 Calcium 250Mg/Vit-D 125 Units [Oscal 250 mg+D -] 2 combo PO DAILY #60 tablet Losartan Potassium [Cozaar -] 25 mg PO DAILY tablet 01/18/18 Metoprolol Succinate [Toprol XL -] 25 mg PO DAILY tab.sr.24h 01/18/18 Atorvastatin Ca [Lipitor] 40 mg PO DAILY 03/23/18 Azathioprine [Imuran -] 50 mg PO BID 03/23/18 Mesalamine 1.2 gm PO BID 03/23/18 Aspirin Coated [Ecotrin -] 325 mg PO DAILY 03/24/18 Acetaminophen [Tylenol .Regular Strength -] 650 mg PO Q6H PRN tablet 03/31/18 Albuterol 0.083% Nebulizer Richelle [Ventolin 0.083% Nebulizer Soln -] 1 amp NEB Q6H PRN amp 03/31/18 levoFLOXacin [Levaquin -] 500 mg PO DAILY #7 tablet 10/27/18
--- NOTE | 2018-10-27 13:07 | PN ---
Progress Note, Physician History of Present Illness: NO COMPLAINTS NO F/C NO ABDOMINAL OR FLANK PAIN URINE C/S ESBL BC (-) - Current Medication List Current Medications: Active Medications Acetaminophen (Tylenol -) 650 mg PO Q6H PRN PRN Reason: FEVER Albuterol Sulfate (Ventolin 0.083% Nebulizer Soln -) 1 amp NEB Q6H PRN PRN Reason: SHORT OF BREATH/WHEEZING Atorvastatin Calcium (Lipitor -) 40 mg PO HS [facility] Last Admin: 10/26/18 21:12 Dose: 40 mg Azathioprine (Imuran -) 50 mg PO BID [facility] Last Admin: 10/27/18 10:23 Dose: 50 mg Calcium/Vitamin D (Oscal 250 Mg+D -) 2 tab PO DAILY [facility] Last Admin: 10/27/18 10:22 Dose: 2 tab Cyanocobalamin (Vitamin B12 -) 100 mcg PO DAILY [facility] Last Admin: 10/27/18 10:23 Dose: 100 mcg Heparin Sodium (Porcine) (Heparin -) 5,000 unit SQ BID [facility] Last Admin: 10/27/18 10:22 Dose: 5,000 unit Ertapenem 1 gm/ Sodium (Chloride) 50 mls @ 100 mls/hr IVPB DAILY [facility] Last Admin: 10/27/18 10:21 Dose: 100 mls/hr Sodium Chloride (Normal Saline -) 1,000 mls @ 50 mls/hr IV ASDIR [facility] Last Admin: 10/26/18 21:12 Dose: 50 mls/hr Losartan Potassium (Cozaar -) 25 mg PO DAILY [facility] Last Admin: 10/27/18 10:22 Dose: 25 mg Metoprolol Succinate (Toprol Xl -) 25 mg PO DAILY [facility] Last Admin: 10/27/18 10:23 Dose: 25 mg Multivitamins/Minerals/Vitamin C (Tab-A-Vit -) 1 tab PO DAILY [facility] Last Admin: 10/27/18 10:23 Dose: 1 tab Non-Formulary Medication (Mesalamine [Mesalamine]) 1.2 gm PO BID [facility] - Objective Vital Signs: Vital Signs Temperature 98.0 F 10/27/18 05:00 Pulse Rate 81 10/27/18 09:00 Respiratory Rate 18 10/27/18 09:00 Blood Pressure 134/84 10/27/18 09:00 O2 Sat by Pulse Oximetry (%) 98 10/26/18 21:00 Constitutional: Yes: No Distress Eyes: Yes: Conjunctiva Clear Cardiovascular: Yes: Regular Rate and Rhythm, S1, S2 Respiratory: Yes: CTA Bilaterally Gastrointestinal: Yes: Normal Bowel Sounds, Soft, Other (+ ILEOSTOMY). No: Tenderness Labs: CBC, BMP 10/27/18 07:00 10/27/18 07:00 INR, PTT INR 1.36 (0.83-1.09) H 10/24/18 08:40 Assessment/Plan RECURRENT UTI ESBL TOXIC METABOLIC ENCEPHALOPATHY RESOLVED S/P ILEOSTOMY SUBSTITUTE LEVAQUIN PO X 7D FOLLOW UP OUTPATIENT UROLOGY
== END 2018-10-27 13:39 | disposition home or self-care (01) | DRG 689 ==
LOC: JER 14:33 → J4S 18:12 → J6S 10-25 15:32
PROVIDERS: ADMIT Family Medicine; ATTEND Family Medicine
DX: N39.0 Urinary tract infection, site not specified (principal); G93.41 Metabolic encephalopathy; E87.2 Acidosis; E11.9 Type 2 diabetes mellitus without complications; E78.5 Hyperlipidemia, unspecified; I10 Essential (primary) hypertension; D64.9 Anemia, unspecified; R41.82 Altered mental status, unspecified; K58.9 Irritable bowel syndrome, unspecified; Z85.51 Personal history of malignant neoplasm of bladder; Z86.73 Personal history of transient ischemic attack (TIA), and cerebral infarction without residual deficits; Z86.711 Personal history of pulmonary embolism; Z93.2 Ileostomy status
CPT/HCPCS: 36415; 71045-TC-FY; 80053; 80061; 81003; 82607; 82728; 82962; 83036; 83540; 83550; 83605; 83721; 83735; 84439; 84443; 85025; 85027; 85610; 87040; 87086; 87186; 93005; 93010; 97116-GP; 97161-GP; 99283-25; J1644; J7030

== ENCOUNTER 2019-02-02 19:22 | Inpatient (IN) | payer OTHER, MEDICARE ==
--- NOTE | 2019-02-02 20:40 | PDOC ---
Documentation entered by Calli Ogden SCRIBE, acting as scribe for Ubaldo Ledezma MD. Ubaldo Ledezma MD: This documentation has been prepared by the Melvi torres Brenda, SCRIBE, under my direction and personally reviewed by me in its entirety. I confirm that the documentation accurately reflects all work, treatment, procedures, and medical decision making performed by me. Attending Attestation - Resident Resident Name: Jonny Pereira - ED Attending Attestation I have performed the following: I have examined & evaluated the patient, The case was reviewed & discussed with the resident, I agree w/resident's findings & plan, Exceptions are as noted - HPI HPI: 02/02/19 20:33 The patient is a 73 year old male, with a significant PMH of HTN, HLD, colitis, bladder cancer (s/p urostomy bag), TIA (no residual deficits) who presents to the emergency department BIBA with not feeling well.. Patient keeps stating, that he has not been feeling good for a couple of days. Patient was a poor historian in general, is unable to localize any complaints. The patient denies chest pain, shortness of breath, headache and dizziness. Denies nausea, vomiting, diarrhea and constipation. Denies any urinary symptoms. ntoes he normally urinates into a 'colostomy bag'. Allergies: NKA Past surgical history: Hernia urostomy, Social history: Former smoker, quit 1989. PCP: Td - Physicial Exam PE: 02/02/19 20:34 GENERAL: The patient is awake, alert and oriented x 2 (self, place) Nontoxic - in no acute distress, dischevelled, smells of urine HEAD: Normocephalic, atraumatic. EYES: extraocular movements intact, sclera anicteric, conjunctiva clear. ENT: Normal voice, Moist mucous membranes. NECK: Normal range of motion, supple, no signs of meningismus LUNGS: Breath sounds equal, clear to auscultation bilaterally. No wheezes, no rhonchi, no rales. HEART: Regular rate and rhythm, normal S1 and S2 without murmur, rub or gallop. ABDOMEN: Soft, nontender, +urostomy in place w/o bag, c/d/i, no erythema, No guarding, no rebound. No CVA tenderness EXTREMITIES: Normal range of motion, no edema. NEUROLOGICAL: No facial assymetry, Normal speech, moving all 4 extremities spontaneously and symmetrically PSYCH: Normal mood, normal affect. SKIN: hot to touch, Dry, normal turgor, - Medical Decision Making 02/02/19 20:39 73y M presents with aMS, noted to be febrile here. history limited but without active complaints beside 'not feeling well' suspect possible occult UTI sepsis orderset obtained 02/02/19 23:16 ua suspcious for UTI pt prior ucx snesitive to [facility] for iv abx 02/03/19 00:01 case dw MARIAN Clements agreed with admission to med surg for further management of UTI stable for med surg Case discussed in detail with admitting physician including history, physical exam and ancillary studies. Admitting physician has assumed care for the patient, will follow all pending diagnostics and will complete the evaluation and treatment.
[2019-02-02] MEDS ORDERED: ACETAMINOPHEN 1000 MG/100 ML VIAL (NON FORMULARY) IVPB ONE (20:42)
[2019-02-02] MEDS ORDERED: ACETAMINOPHEN INJECTION 100 ML IVPB ONE (20:45)
--- NOTE | 2019-02-02 20:45 | PDOC ---
History of Present Illness <Ubaldo Ledezma - Last Filed: 02/02/19 23:31> - History of Present Illness Initial Comments: 02/02/19 20:45 73yo F hx of resistant UTI's, medical device s/p radiation, urostomy , HTN,HLD, colitis and diabetes presents to the ED with AMS. He had a similiar presentation in 2018 where he was admitted and treated for resistant UTI with vanc and zosyn. He states that he is not feeling good,but is unable to elaborate any further on what he means. He is alert and oriented to person and place only. 02/02/19 21:19 <Jonny Pereira - Last Filed: 02/03/19 16:38> - General Stated Complaint: FEVER Time Seen by Provider: 02/02/19 19:49 Past History <Ubaldo Ledezma - Last Filed: 02/02/19 23:31> - Past Medical History Anemia: No Asthma: No Cancer: Yes (PROSTATE with rad ,UROSTOMY) Cardiac Disorders: No CVA: No COPD: No CHF: No DVT: No Dementia: No Diabetes: Yes (hx borderline) GI Disorders: Yes (COLITIS) Disorders: No HTN: Yes Hypercholesterolemia: Yes Liver Disease: No Seizures: No Thyroid Disease: No - Surgical History Abdominal Surgery: Yes (HERNIA,UROSTOMY) Appendectomy: No Cardiac Surgery: No Cholecystectomy: No GI Surgery: Yes Lung Surgery: No Neurologic Surgery: No Orthopedic Surgery: No - Suicide/Smoking/Psychosocial Hx Smoking History: Never smoked Have you smoked in the past 12 months: No Number of Cigarettes Smoked Daily: 10 If you are a former smoker, when did you quit?: 1989 'Breaking Loose' booklet given: 05/02/17 Hx Alcohol Use: No Drug/Substance Use Hx: No Substance Use Type: None Hx Substance Use Treatment: No <Jonny Pereira - Last Filed: 02/03/19 16:38> - Past Medical History Allergies/Adverse Reactions: Allergies Allergy/AdvReac Type Severity Reaction Status Date / Time No Known Allergies Allergy Verified 10/23/18 14:54 Home Medications: Ambulatory Orders Cyanocobalamin [Vitamin B12 -] 1,000 mg PO DAILY 03/09/15 Multivitamins [Multivit ([facility] Formulary)] 1 tab PO DAILY 04/19/15 Calcium 250Mg/Vit-D 125 Units [Oscal 250 mg+D -] 2 combo PO DAILY #60 tablet Losartan Potassium [Cozaar -] 25 mg PO DAILY tablet 01/18/18 Metoprolol Succinate [Toprol XL -] 25 mg PO DAILY tab.sr.24h 01/18/18 Atorvastatin Ca [Lipitor] 40 mg PO DAILY 03/23/18 Azathioprine [Imuran -] 50 mg PO BID 03/23/18 Mesalamine 1.2 gm PO BID 03/23/18 Aspirin Coated [Ecotrin -] 325 mg PO DAILY 03/24/18 Acetaminophen [Tylenol .Regular Strength -] 650 mg PO Q6H PRN tablet 03/31/18 Albuterol 0.083% Nebulizer Richelle [Ventolin 0.083% Nebulizer Soln -] 1 amp NEB Q6H PRN amp 03/31/18 levoFLOXacin [Levaquin -] 500 mg PO DAILY #7 tablet 10/27/18 Review of Systems - Review of Systems Comments:: 02/02/19 21:19 ltd answers. pt somnolent Constitutional: No: Chills Respiratory: No: Cough Cardiac (ROS): No: Chest Pain ABD/GI: No: Abdominal cramping : No: Flank Pain Musculoskeletal: No: Back Pain <Jonny Pereira - Last Filed: 02/03/19 16:38> *Physical Exam - Vital Signs Last Vital Signs Temp Pulse Resp BP Pulse Ox 102.3 F H 106 H 20 122/70 94 L 02/02/19 19:58 02/02/19 19:58 02/02/19 19:58 02/02/19 19:58 02/02/19 19:58 <Ubaldo Ledezma - Last Filed: 02/02/19 23:31> - Physical Exam General Appearance: Yes: Nourished, Other (urine smell on gown). No: Apparent Distress HEENT: positive: EOMI, Normal Voice. negative: Scleral Icterus (R), Scleral Icterus (L) Neck: positive: Trachea midline, Supple Respiratory/Chest: positive: Lungs Clear, Normal Breath Sounds. negative: Chest Tender, Respiratory Distress, Accessory Muscle Use, Rales, Wheezing Cardiovascular: positive: Regular Rhythm, Regular Rate, S1, S2. negative: Edema , JVD Vascular Pulses: Dorsalis-Pedis (R): 2+, Doralis-Pedis (L): 2+ Gastrointestinal/Abdominal: positive: Normal Bowel Sounds, Soft, Other ( urostomy opening on right side). negative: Tenderness Male Genitalia: positive: normal genitalia, normal prostate. negative: discharge Musculoskeletal: positive: Normal Inspection. negative: CVA Tenderness Extremity: positive: Normal Capillary Refill, Normal Inspection, Delayed Capillary Refill. negative: Cyanosis, Calf Tenderness Integumentary: positive: Normal Color, Dry, Warm Neurologic: positive: Other (AO x2 . Somnolent but arousable. has trouble understanding some questions) <Jonny Pereira - Last Filed: 02/03/19 16:38> ED Treatment Course - LABORATORY CBC & Chemistry Diagram: 02/02/19 21:06 02/02/19 20:24 - ADDITIONAL ORDERS Additional order review: Laboratory Results 02/02/19 02/02/19 02/02/19 21:06 21:05 20:24 WBC 7.8 Corrected WBC (auto) RBC 4.02 Hgb 12.4 Hct 36.8 D MCV 91.5 MCH 30.8 MCHC 33.6 RDW 17.5 H Plt Count 114 L D MPV 9.0 Absolute Neuts (auto) 6.8 Neutrophils % 86.8 H D Lymphocytes % 5.5 L D Monocytes % 7.6 Eosinophils % 0.0 D Basophils % 0.1 Nucleated RBC % 0 Platelet Estimate Platelet Comment PT with INR 14.70 H INR 1.24 H PTT (Actin FS) 19.6 L VBG pH POC VBG pCO2 POC VBG pO2 VBG HCO3 VBG O2 Sat (Janette) VBG Base Excess Sodium Potassium Chloride Carbon Dioxide Anion Gap BUN Creatinine Est GFR (CKD-EPI)AfAm Est GFR (CKD-EPI)NonAf Random Glucose Lactic Acid Calcium Total Bilirubin AST ALT Alkaline Phosphatase Total Protein Albumin Urine Color [place] Urine Appearance Turbid Urine pH 5.5 Ur Specific [place] 1.027 Urine Protein 3+ H Urine Glucose (UA) Negative Urine Ketones Trace H Urine Blood 3+ H Urine Nitrite Positive H Urine Bilirubin Negative Urine Urobilinogen 1.0 Ur Leukocyte Esterase 2+ H Urine WBC (Auto) 3028 Urine Casts (Auto) 110 U Epithel Cells (Auto) 13.6 Urine Bacteria (Auto) 4205.2 02/02/19 02/02/19 02/02/19 20:24 20:24 20:24 WBC Cancelled Corrected WBC (auto) Cancelled RBC Cancelled Hgb Cancelled Hct Cancelled MCV Cancelled MCH Cancelled MCHC Cancelled RDW Cancelled Plt Count Cancelled MPV Cancelled Absolute Neuts (auto) Cancelled Neutrophils % Cancelled Lymphocytes % Cancelled Monocytes % Cancelled Eosinophils % Cancelled Basophils % Cancelled Nucleated RBC % Cancelled Platelet Estimate Cancelled Platelet Comment Cancelled PT with INR INR PTT (Actin FS) VBG pH POC VBG pCO2 POC VBG pO2 VBG HCO3 VBG O2 Sat (Janette) VBG Base Excess Sodium 139 Potassium 4.6 Chloride 103 Carbon Dioxide 27 Anion Gap 8 BUN 21.2 H Creatinine 1.2 Est GFR (CKD-EPI)AfAm 68.63 Est GFR (CKD-EPI)NonAf 59.21 Random Glucose 228 H Lactic Acid 1.8 Calcium 9.1 Total Bilirubin 1.5 H AST 40 H ALT 22 Alkaline Phosphatase 57 Total Protein 7.8 Albumin 3.8 Urine Color Urine Appearance Urine pH Ur Specific [place] Urine Protein Urine Glucose (UA) Urine Ketones Urine Blood Urine Nitrite Urine Bilirubin Urine Urobilinogen Ur Leukocyte Esterase Urine WBC (Auto) Urine Casts (Auto) U Epithel Cells (Auto) Urine Bacteria (Auto) 02/02/19 02/02/19 20:24 20:13 WBC Corrected WBC (auto) RBC Hgb Hct MCV MCH MCHC RDW Plt Count MPV Absolute Neuts (auto) Neutrophils % Lymphocytes % Monocytes % Eosinophils % Basophils % Nucleated RBC % Platelet Estimate Platelet Comment PT with INR INR PTT (Actin FS) Cancelled VBG pH 7.43 H POC VBG pCO2 40.8 POC VBG pO2 56.4 H VBG HCO3 26.8 VBG O2 Sat (Janette) 87.6 H VBG Base Excess 2.8 H Sodium Potassium Chloride Carbon Dioxide Anion Gap BUN Creatinine Est GFR (CKD-EPI)AfAm Est GFR (CKD-EPI)NonAf Random Glucose Lactic Acid Calcium Total Bilirubin AST ALT Alkaline Phosphatase Total Protein Albumin Urine Color Urine Appearance Urine pH Ur Specific [place] Urine Protein Urine Glucose (UA) Urine Ketones Urine Blood Urine Nitrite Urine Bilirubin Urine Urobilinogen Ur Leukocyte Esterase Urine WBC (Auto) Urine Casts (Auto) U Epithel Cells (Auto) Urine Bacteria (Auto) 02/02/19 02/02/19 21:06 20:24 RBC 4.02 Cancelled MCV 91.5 Cancelled MCHC 33.6 Cancelled RDW 17.5 H Cancelled MPV 9.0 Cancelled Neutrophils % 86.8 H D Cancelled Lymphocytes % 5.5 L D Cancelled Monocytes % 7.6 Cancelled Eosinophils % 0.0 D Cancelled Basophils % 0.1 Cancelled - Medications Given in the ED: ED Medications Discontinued Medications Generic Name Dose Route Start Last Admin Trade Name Freq PRN Reason Stop Dose Admin Acetaminophen 1,000 mg 02/02/19 20:42 02/02/19 20:52 Ofirmev Injection - IVPB 02/02/19 20:43 1,000 mg ONCE ONE Administration Vancomycin HCl 1,000 mg/ 250 mls @ 250 mls/hr 02/02/19 22:11 02/02/19 23:20 Dextrose IVPB 02/02/19 23:10 250 mls/hr ONCE ONE Administration Protocol Piperacillin Sod/Tazobactam 100 mls @ 200 mls/hr 02/02/19 22:11 02/02/19 22: 45 Sod 4.5 gm/ Dextrose IVPB 02/02/19 22:40 200 mls/hr ONCE ONE Administration Protocol Sodium Chloride 1,000 ml 02/02/19 20:47 02/02/19 20:52 Normal Saline - IV 02/02/19 20:48 1,000 ml ONCE ONE Administration <Ubaldo Ledezma - Last Filed: 02/02/19 23:31> - LABORATORY CBC & Chemistry Diagram: 02/03/19 08:20 02/03/19 08:20 <Jonny Pereira - Last Filed: 02/03/19 16:38> Medical Decision Making - Medical Decision Making 02/02/19 21:24 3yo F hx of resistant UTI's, medical device s/p radiation, urostomy , HTN,HLD, colitis and diabetes presents to the ED with AMS. Ddx: UTI vs Pneumonia vs other infectious process vs ACS Urine culture from 10/23/18 grew E. Coli -esbl Klebsiella pneumoniae esbl VR EC faecium No growth on blood cultures Labs/Imaging/Meds Sepsis order Set Results Lactic acid 1.8 White count : not elevated Troponin EKG Sinus rhythm with premature atrial complexes vent rate 94ms pr interval 150ms qrs 88ms at/qtc 334/117ms CXR: no evidence of CHF no airspace opacities in visualized lungs left basilar region obscured by cardiac silhouette 02/03/19 16:37 <Jonny Pereira - Last Filed: 02/03/19 16:38> *DC/Admit/Observation/Transfer - Discharge Dispostion Decision to Admit order: Yes <Ubaldo Ledezma - Last Filed: 02/02/19 23:31> <Jonny Pereira - Last Filed: 02/03/19 16:38> Diagnosis at time of Disposition: Urinary tract infection Qualifiers: Urinary tract infection type: site unspecified Hematuria presence: with hematuria Qualified Code(s): N39.0 - Urinary tract infection, site not specified - Discharge Dispostion Condition at time of disposition: Stable
[2019-02-02] MEDS ORDERED: SODIUM CHLORIDE 0.9% 500 ML INFUS.BAG IV ONE (20:47)
[2019-02-02 20:57] LABS: VENOUS PC02 40.8 mmHg (38-52); VENOUS PH 7.43 (7.31-7.41); VENOUS PO2 56.4 mmHg (28-48)
[2019-02-02 20:59] LABS: INR 1.24 (0.83-1.09); PROTHROMBIN TIME (PATIENT) 14.7 SEC (9.7-13.0)
[2019-02-02 21:02] LABS: ACTIVATED PTT 19.6 SECONDS (25.2-36.5)
[2019-02-02 21:17] LABS: ALBUMIN 3.8 g/dl (3.4-5.0); ALK PHOS 57 U/L (45-117); ANION GAP 8 MMOL/L (8-16); BILIRUBIN,TOTAL 1.5 mg/dL (0.2-1); BLOOD UREA NITROGEN 21.2 mg/dL (7-18); CALCIUM 9.1 mg/dL (8.5-10.1); CHLORIDE 103 mmol/L (98-107); CO2 27 mmol/L (21-32); CREATININE 1.2 mg/dL (0.55-1.3); GLUCOSE,RANDOM 228 mg/dL (74-106); POTASSIUM 4.6 mmol/L (3.5-5.1); SGOT/AST 40 U/L (15-37); SGPT/ALT 22 U/L (13-61); SODIUM 139 mmol/L (136-145); TOT PROT 7.8 g/dl (6.4-8.2)
[2019-02-02 21:40] LABS: BASO % 0.1 % (0-2.0); HEMATOCRIT 36.8 % (35.4-49); HEMOGLOBIN 12.4 GM/dL (11.7-16.9); LYMPH % 5.5 % (8-40); MCH 30.8 pg (25.7-33.7); MCHC 33.6 g/dl (32.0-35.9); MEAN CELL VOLUME 91.5 fl (80-96); MONO % 7.6 % (3.8-10.2); NEUT % 86.8 % (42.8-82.8); PLATELET COUNT 114 K/MM3 (134-434); RBC 4.02 M/mm3 (4.00-5.60); RDW 17.5 % (11.9-15.9); WHITE BLOOD COUNT 7.8 K/mm3 (4.0-10.0)
[2019-02-02] MEDS ORDERED: PIPERACILLIN/TAZOB 4.5 GM 4.5 GM in DEXTROSE 5%-WATER 100 ML IVPB ONE (22:11)
[2019-02-02] MEDS ORDERED: VANCOMYCIN 1,000 MG in DEXTROSE 5%-WATER - 250 ML IVPB ONE (22:11)
[2019-02-02] MEDS ORDERED: PIPERACILLIN/TAZOB 4.5 GM 4.5 GM/100 ML BAG IVPB ONE (22:44)
[2019-02-02 22:51] LABS: EPI CELLS 13.6 /HPF (0-5/HPF); HYALINE CASTS 110 /lpf (0-8); PH,URINE 5.5 (5.0-8.0); URINE APPEARANCE TURBID; URINE BACTERIA 4205.2 /hpf (NEGATIVE); URINE BILIRUBIN NEGATIVE (NEGATIVE); URINE COLOR ORANGE; URINE GLUCOSE (UA) NEGATIVE (NEGATIVE); URINE KETONE TRACE (NEGATIVE); URINE LEUK ESTERASE 2+ (NEGATIVE); URINE NITRITE POSITIVE (NEGATIVE); URINE PROTEIN 3+ (NEGATIVE); URINE WBC 3028 /hpf (0-5)
[2019-02-02] MEDS ORDERED: VANCOMYCIN 1 GRAM (PRE-DOCKED) 1,000 MG/250 ML BAG IVPB ONE (23:17)
--- NOTE | 2019-02-03 00:39 | HP ---
Admitting History and Physical - Primary Care Physician PCP: Duncan Appiah - Admission Chief Complaint: Generalized Malaise, Poor Appetite History of Present Illness: The patient is a 73 year old male, with a significant PMH of HTN, HLD, colitis, bladder cancer (s/p urostomy bag), TIA (no residual deficits) who presents to the emergency department BIB with not feeling well.. Patient keeps stating, that he has not been feeling good for a couple of days. Patient was a poor historian in general, is unable to localize any complaints. The patient denies chest pain, shortness of breath, headache and dizziness. Denies nausea, vomiting, diarrhea and constipation. Denies any urinary symptoms. notes he normally urinates into a 'colostomy bag'. History Source: Patient Limitations to Obtaining History: No Limitations - Past Medical History [employer]: Yes: TIA Cardiovascular: Yes: HTN, Hyperlipdemia Gastrointestinal: Yes: Inflamatory Bowel Disease Renal/: Yes: BPH, Cancer (Prostate), UTI, Other (SEE ABOVE) Endocrine: Yes: Diabetes Mellitus - Past Surgical History Past Surgical History: Yes: Cataract Removal, Ileosotomy - Smoking History Smoking history: Never smoked Have you smoked in the past 12 months: No Aproximately how many cigarettes per day: 10 If you are a former smoker, when did you quit?: 1989 - Alcohol/Substance Use Hx Alcohol Use: No History of Substance Use: reports: None - Social History ADL: Independent (previously Independent in ADLs without AD) History of Recent Travel: No Home Medications - Allergies Allergies/Adverse Reactions: Allergies Allergy/AdvReac Type Severity Reaction Status Date / Time No Known Allergies Allergy Verified 10/23/18 14:54 - Home Medications Home Medications: Ambulatory Orders Cyanocobalamin [Vitamin B12 -] 1,000 mg PO DAILY 03/09/15 Multivitamins [Multivit ([facility] Formulary)] 1 tab PO DAILY 04/19/15 Calcium 250Mg/Vit-D 125 Units [Oscal 250 mg+D -] 2 combo PO DAILY #60 tablet Losartan Potassium [Cozaar -] 25 mg PO DAILY tablet 01/18/18 Metoprolol Succinate [Toprol XL -] 25 mg PO DAILY tab.sr.24h 01/18/18 Atorvastatin Ca [Lipitor] 40 mg PO DAILY 03/23/18 Azathioprine [Imuran -] 50 mg PO BID 03/23/18 Mesalamine 1.2 gm PO BID 03/23/18 Aspirin Coated [Ecotrin -] 325 mg PO DAILY 03/24/18 Acetaminophen [Tylenol .Regular Strength -] 650 mg PO Q6H PRN tablet 03/31/18 Albuterol 0.083% Nebulizer Richelle [Ventolin 0.083% Nebulizer Soln -] 1 amp NEB Q6H PRN amp 03/31/18 Sulfamethoxazole/Trimethoprim [Bactrim Ds -] 1 tab PO BID #6 tablet 02/08/19 Family Disease History - Family Disease History Family History: Unremarkable Review of Systems - Review of Systems Constitutional: reports: Loss of Appetite, Malaise, Weakness Eyes: reports: No Symptoms HENT: reports: No Symptoms Neck: reports: No Symptoms Cardiovascular: reports: No Symptoms Respiratory: reports: No Symptoms Gastrointestinal: reports: No Symptoms Genitourinary: reports: Other (Urostomy) Breasts: reports: No Symptoms Reported Musculoskeletal: reports: No Symptoms Integumentary: reports: No Symptoms Neurological: reports: No Symptoms Endocrine: reports: No Symptoms Hematology/Lymphatic: reports: No Symptoms Psychiatric: reports: No Symptoms Physical Examination Vital Signs: Vital Signs Temperature 102.3 F H 02/02/19 20:12 Pulse Rate 88 02/02/19 23:55 Respiratory Rate 20 02/02/19 20:12 Blood Pressure 119/43 L 02/02/19 23:55 O2 Sat by Pulse Oximetry (%) 95 02/02/19 23:55 Constitutional: Yes: No Distress, Obese Eyes: Yes: WNL, Conjunctiva Clear, EOM Intact HENT: Yes: WNL, Atraumatic, Normocephalic Neck: Yes: WNL, Supple, Trachea Midline Cardiovascular: Yes: WNL, Regular Rate and Rhythm, S1, S2 Respiratory: Yes: WNL, Regular, CTA Bilaterally Gastrointestinal: Yes: Other (urostomy with drainage bag- hematuria) ...Rectal Exam: Yes: Deferred Renal/: Yes: Other (urostomy bag) Musculoskeletal: Yes: WNL Extremities: Yes: WNL Edema: No Peripheral Pulses WNL: Yes Integumentary: Yes: WNL Neurological: Yes: Alert, Oriented (x2), Cran Nerves II-XII Intact ...Motor Strength: WNL Psychiatric: Yes: WNL, Alert Labs: CBC, BMP 02/02/19 21:06 02/02/19 20:24 Imaging - Results Chest X-ray: Image Reviewed EKG: Image Reviewed Problem List - Problems (1) Sepsis Code(s): A41.9 - SEPSIS, UNSPECIFIED ORGANISM Qualifiers: Sepsis type: sepsis due to unspecified organism Qualified Code(s): A41.9 - Sepsis, unspecified organism (2) Complicated UTI (urinary tract infection) Code(s): N39.0 - URINARY TRACT INFECTION, SITE NOT SPECIFIED (3) Fever Code(s): R50.9 - FEVER, UNSPECIFIED (4) Diabetes Code(s): E11.9 - TYPE 2 DIABETES MELLITUS WITHOUT COMPLICATIONS (5) HLD (hyperlipidemia) Code(s): E78.5 - HYPERLIPIDEMIA, UNSPECIFIED Qualifiers: Hyperlipidemia type: unspecified Qualified Code(s): E78.5 - Hyperlipidemia , unspecified (6) HTN (hypertension) Code(s): I10 - ESSENTIAL (PRIMARY) HYPERTENSION Qualifiers: Hypertension type: unspecified Qualified Code(s): I10 - Essential (primary ) hypertension (7) History of ESBL Klebsiella pneumoniae infection Code(s): Z86.19 - PERSONAL HISTORY OF OTHER INFECTIOUS AND PARASITIC DISEASES (8) History of ileal conduit Code(s): Z98.890 - OTHER SPECIFIED POSTPROCEDURAL STATES (9) History of prostate cancer Code(s): Z85.46 - PERSONAL HISTORY OF MALIGNANT NEOPLASM OF PROSTATE Assessment/Plan This is a 73 y/o man admitted for Sepsis, Complicated UTI for further evaluation of their emergent condition. Plan: Admit Isolation Precautions Esbl hx Urine Culture-pending Blood Cultures-pending UA- +nitrates, jean-claude esterase, protein, WBC, Bacteria Continue ABX Monitor CBC, BMP IVF Tylenol prn Appreciate ID consult Continue home meds Visit type - Emergency Visit Emergency Visit: Yes ED Registration Date: 02/02/19 Care time: The patient presented to the Emergency Department on the above date and was hospitalized for further evaluation of their emergent condition. - New Patient This patient is new to me today: Yes Date on this admission: 02/03/19 - Critical Care Critical Care patient: No
[2019-02-03] MEDS: SODIUM CHLORIDE 1,000 ML IV SCH (00:49)
[2019-02-03 01:37] LABS: URINE RBC MANY /hpf (0-4)
[2019-02-03] MEDS ORDERED: ALBUTEROL SO4 0.083% IH SOL 2.5 MG/3 ML VIAL.NEB. NEB PRN (01:37)
[2019-02-03 01:38] LABS: YEAST FEW (NEGATIVE)
[2019-02-03] MEDS ORDERED: ACETAMINOPHEN 325 MG TABLET (FP) ONE ×2 (08:43→11:42)
[2019-02-03 08:45] LABS: BASO % 0.3 % (0-2.0); EOS % 0.1 % (0-4.5); HEMATOCRIT 37.1 % (35.4-49); HEMOGLOBIN 12.4 GM/dL (11.7-16.9); LYMPH % 7.6 % (8-40); MCH 30.9 pg (25.7-33.7); MCHC 33.5 g/dl (32.0-35.9); MEAN CELL VOLUME 92.3 fl (80-96); MEAN PLT VOLUME 9.5 fl (7.5-11.1); MONO % 8.1 % (3.8-10.2); NEUT % 83.9 % (42.8-82.8); PLATELET COUNT 124 K/MM3 (134-434); RBC 4.02 M/mm3 (4.00-5.60); RDW 17.9 % (11.9-15.9); WHITE BLOOD COUNT 6.1 K/mm3 (4.0-10.0)
[2019-02-03] MEDS ORDERED: VANCOMYCIN 1 GRAM (PRE-DOCKED) 1,000 MG/250 ML BAG IVPB SCH ×2 (08:45→23:00)
[2019-02-03] MEDS: ACETAMINOPHEN 325 MG TABLET (FP) PO PRN (09:00)
[2019-02-03 09:10] LABS: BLOOD UREA NITROGEN 22.1 mg/dL (7-18); CALCIUM 8.6 mg/dL (8.5-10.1); CREATININE 1.2 mg/dL (0.55-1.3); POTASSIUM 4.2 mmol/L (3.5-5.1)
[2019-02-03] MEDS: ASPIRIN 325 MG ENTERIC COATED TABLET (FP) PO SCH (10:00)
[2019-02-03] MEDS: azaTHIOprine 50 MG TABLET PO SCH ×2 (10:00→22:36)
[2019-02-03] MEDS: metoPROLOL SUCCINATE 25 MG TAB.SR.24H (FP) PO SCH (10:00)
[2019-02-03] MEDS ORDERED: PATIENT'S OWN MEDICATION (NON-FORMULARY) (Mesalamine [Mesalamine] 1.2 GM) PO SCH (10:00)
[2019-02-03] MEDS ORDERED: PIPERACILLIN/TAZOB 3.375 GM 3.375 GM in DEXTROSE 5%-WATER - 50 ML IVPB SCH (10:00)
[2019-02-03] MEDS: CYANOCOBALAMIN 1,000 MCG TABLET (FP) PO SCH (10:00)
[2019-02-03] MEDS: LOSARTAN POTASSIUM 25 MG TABLET PO SCH (10:00)
[2019-02-03] MEDS: CALCIUM 250MG/VIT-D 125 UNITS 1 COMBO TABLET PO SCH (10:58)
[2019-02-03] MEDS: MULTIVITAMINS (DAILY MVI) TABLET (FP) PO SCH (10:59)
[2019-02-03] MEDS ORDERED: PIPERACILLIN/TAZOB 3.375 GM 3.375 GM/50 ML BAG IVPB ONE (11:26)
--- NOTE | 2019-02-03 11:28 | PN ---
Progress Note, Physician Chief Complaint: UTI History of Present Illness: NAD febrile now Urostomy tube draining cloudy urine Hx of ESBL in urine - Current Medication List Current Medications: Active Medications Acetaminophen (Tylenol -) 650 mg PO Q6H PRN PRN Reason: FEVER Last Admin: 02/03/19 09:00 Dose: 650 mg Albuterol Sulfate (Ventolin 0.083% Nebulizer Soln -) 1 amp NEB Q6H PRN PRN Reason: SHORT OF BREATH/WHEEZING Aspirin (Ecotrin -) 325 mg PO DAILY [facility] Last Admin: 02/03/19 10:00 Dose: 325 mg Atorvastatin Calcium (Lipitor -) 40 mg PO HS [facility] Azathioprine (Imuran -) 50 mg PO BID [facility] Last Admin: 02/03/19 10:00 Dose: 50 mg Calcium/Vitamin D (Oscal 250 Mg+D -) 2 tab PO DAILY [facility] Last Admin: 02/03/19 10:58 Dose: 2 tab Cyanocobalamin (Vitamin B12 -) 1,000 mcg PO DAILY [facility] Last Admin: 02/03/19 10:00 Dose: 1,000 mcg Sodium Chloride (Normal Saline -) 1,000 mls @ 60 mls/hr IV ASDIR [facility] Last Admin: 02/03/19 00:49 Dose: 60 mls/hr Vancomycin HCl (Vancomycin (Pre-Docked)) 1,000 mg in 250 mls @ 166.667 mls/hr IVPB Q24H [facility]; Protocol Stop: 02/04/19 00:29 Piperacillin Sod/Tazobactam (Sod 3.375 gm/ Dextrose) 50 mls @ 100 mls/hr IVPB Q8H-IV [facility]; Protocol Vancomycin HCl (Vancomycin (Pre-Docked)) 1,000 mg in 250 mls @ 166.667 mls/hr IVPB Q24H [facility]; Protocol Piperacillin Sod/Tazobactam (Sod 3.375 gm/ Dextrose) 50 mls @ 100 mls/hr IVPB Q8H-IV [facility]; Protocol Stop: 02/04/19 02:29 Last Admin: 02/03/19 11:00 Dose: 100 mls/hr Losartan Potassium (Cozaar -) 25 mg PO DAILY [facility] Last Admin: 02/03/19 10:00 Dose: 25 mg Metoprolol Succinate (Toprol Xl -) 25 mg PO DAILY [facility] Last Admin: 02/03/19 10:00 Dose: 25 mg Multivitamins/Minerals/Vitamin C (Tab-A-Vit -) 1 tab PO DAILY [facility] Last Admin: 02/03/19 10:59 Dose: 1 tab Non-Formulary Medication (Mesalamine [Mesalamine]) 1.2 gm PO BID [facility] - Objective Vital Signs: Vital Signs Temperature 100.8 F H 02/03/19 09:00 Pulse Rate 73 02/03/19 09:00 Respiratory Rate 18 02/03/19 09:00 Blood Pressure 143/73 02/03/19 09:00 O2 Sat by Pulse Oximetry (%) 99 02/03/19 09:00 Constitutional: Yes: Well Nourished, No Distress, Calm Cardiovascular: Yes: Regular Rate and Rhythm Respiratory: Yes: Regular Gastrointestinal: Yes: WNL Genitourinary: Yes: WNL Musculoskeletal: Yes: Muscle Weakness Extremities: Yes: WNL Edema: No Peripheral Pulses WNL: Yes Neurological: Yes: Alert, Oriented Psychiatric: Yes: Alert, Oriented Labs: CBC, BMP 02/03/19 08:20 02/03/19 08:20 INR, PTT INR 1.24 (0.83-1.09) H 02/02/19 20:24 Problem List - Problems (1) UTI (urinary tract infection) Assessment/Plan: -UA/UC -ID consult -IV abx -tylenol for fever>100.0F -contact isolation -CT bad/pelvis to r/o hydronephrosis Code(s): N39.0 - URINARY TRACT INFECTION, SITE NOT SPECIFIED Qualifiers: Urinary tract infection type: site unspecified Hematuria presence: with hematuria Qualified Code(s): N39.0 - Urinary tract infection, site not specified; R31.9 - Hematuria, unspecified (2) Weakness Assessment/Plan: -likely 2/2 to UTI -PT Code(s): R53.1 - WEAKNESS (3) HTN (hypertension) Assessment/Plan: -resume home meds Code(s): I10 - ESSENTIAL (PRIMARY) HYPERTENSION Qualifiers: Hypertension type: unspecified Qualified Code(s): I10 - Essential (primary ) hypertension (4) Diabetes Assessment/Plan: -Last A1c at 5.8 in 10/2018 -Repeat A1c before doing BGM's and ISS Code(s): E11.9 - TYPE 2 DIABETES MELLITUS WITHOUT COMPLICATIONS Assessment/Plan see problem list DVT ppx
--- NOTE | 2019-02-03 12:20 | EKG ---
Test Reason : Blood Pressure : / mmHG Vent. Rate : 094 BPM Atrial Rate : 094 BPM P-R Int : 150 ms QRS Dur : 088 ms QT Int : 334 ms P-R-T Axes : 047 004 027 degrees QTc Int : 417 ms SINUS RHYTHM WITH PREMATURE ATRIAL COMPLEXES T WAVE ABNORMALITY, CONSIDER LATERAL ISCHEMIA ABNORMAL ECG WHEN COMPARED WITH ECG OF 23-OCT-2018 17:48, PREMATURE ATRIAL COMPLEXES ARE NOW PRESENT Confirmed by HAL SALEH, SARMAD ([id number]) on 02/03/2019 12:20:41 PM Referred By: Confirmed By:SARMAD HONG MD
--- NOTE | 2019-02-03 14:37 | PN ---
Progress Note (short form) - Note Progress Note: ID consult dictated imp/reccd 73 yo man with urostomy, recurrent ecoli esbl uti, admitted with confusion and not feeling well urine from urostomy is very cloudy and thick no other localizing symptoms febrile to 102.3 now feels improved alert no nausea or vomiting no abdominal pain suspect recurrent urosepsis treated in october with levaquin for klebsiella esbl uti cultures pending would switch to ertapenem d/c vanco/zosyn suggest repeat abdominal imaging d/w Dr Appiah he had recent PCN at [place], removed last month ?recurrent hydronephrosis will repeat ct scan to evaluate Problem List - Problems (1) Fever Code(s): R50.9 - FEVER, UNSPECIFIED (2) Complicated UTI (urinary tract infection) Code(s): N39.0 - URINARY TRACT INFECTION, SITE NOT SPECIFIED (3) History of ESBL Klebsiella pneumoniae infection Code(s): Z86.19 - PERSONAL HISTORY OF OTHER INFECTIOUS AND PARASITIC DISEASES (4) Hydronephrosis Code(s): N13.30 - UNSPECIFIED HYDRONEPHROSIS (5) History of urostomy Code(s): Z98.890 - OTHER SPECIFIED POSTPROCEDURAL STATES
[2019-02-03] MEDS ORDERED: ERTAPENEM SODIUM 1 GM VIAL ONE (14:52)
[2019-02-03] MEDS: ERTAPENEM SODIUM 1 GM in SODIUM CHLORIDE 50 ML IVPB SCH (14:54)
--- NOTE | 2019-02-03 19:24 | CONS ---
INFECTIOUS DISEASE CONSULTATION DATE OF CONSULTATION: DATE OF DICTATION: 02/03/2019 REQUESTING PHYSICIAN: Duncan Appiah MD This is a 73-year-old man with a history of a urostomy and recurrent E. coli ESBL hospitalizations. Often, his UTIs are accompanied by confusion. He was last admitted in October to [facility]. At which time, he again had an E. coli ESBL UTI. He was discharged home on Levaquin. He was treated in the hospital with ertapenem. Today, he presents again to the emergency room on the with not feeling well which has been going on for several days. He noted to have a fever of 101.8, and he was admitted for further evaluation. He was given vancomycin and Zosyn overnight. I am asked to evaluate him. PAST MEDICAL HISTORY: Notable for the hernia repair and urostomy. He has a history of hypertension; hyperlipidemia; colitis; bladder cancer, status post urostomy. He has had a TIA in the past as well. He has a history of inflammatory bowel disease as well. SOCIAL HISTORY: He is a former smoker. He quit in 1989. He lives alone. Of note, he reports that he went to [place] in the winter and was on Macrobid daily and did not have any UTIs. FAMILY HISTORY: Noncontributory. ALLERGIES: He has no known drug allergies. MEDICATIONS: At home include vitamins, metoprolol, mesalamine, losartan, vitamin B12, azathioprine, atorvastatin, aspirin. REVIEW OF SYSTEMS: Currently, he is feeling well. He notes his friends are bringing him his urostomy bag, and currently, he has a catheter hooked up to the urostomy tube. PHYSICAL EXAMINATION: General: He is awake and alert, in no acute distress. Vital Signs: His T-max was 102.3; current temperature is 99.4. Pulse of 68. Blood pressure is 138/72. Respiratory rate of 16. He is saturating 97% on room air. HEENT: He is normocephalic. His eyes are anicteric. Neck: Supple. Lungs: Clear to auscultation. Heart: Regular rate and rhythm. Abdomen: Soft. He has a large dressing over his urostomy site as he is awaiting a bag. Extremities: Without edema. LABORATORY DATA: His labs are notable for white count of 6.1, hemoglobin 12.4, platelets are 124. BUN is 22 and creatinine 1.2. Urinalysis has 2+ leukocyte esterase with 3000 white cells. He received vancomycin and Zosyn in the emergency room. His chest x-ray is clear. In summary, this is a 73-year-old man with probable recurrent urosepsis, treated in October with Levaquin for klebsiella extended spectrum beta-lactamase urinary tract infection. Cultures are pending. Would switch him to ertapenem. Can stop vancomycin and Zosyn. Suggest repeat abdominal imaging. Spoke to Dr. Appiah. Apparently, he had a recent percutaneous nephrostomy at [place] which was removed last month. Question whethter he has recurrent hydronephrosis. We will repeat imaging to evaluate. He may need urologic evaluation based on the results. Further recommendations to follow. CARMELITA SHEARER M.D. [id number] [email or web address]
[2019-02-03] MEDS ORDERED: INSULIN SLIDING SCALE (NOVOLOG) 1 VIAL SQ SCH (22:00)
[2019-02-03] MEDS: ATORVASTATIN CA 40 MG TABLET (FP) PO SCH (22:36)
[2019-02-03 23:44] VITALS: BMI 31.8
[2019-02-04] MEDS: SODIUM CHLORIDE 1,000 ML IV SCH (03:05)
[2019-02-04 08:34] LABS: BASO % 0.5 % (0-2.0); EOS % 2.4 % (0-4.5); HEMATOCRIT 34.3 % (35.4-49); HEMOGLOBIN 11.2 GM/dL (11.7-16.9); LYMPH % 16.9 % (8-40); MCH 30.7 pg (25.7-33.7); MCHC 32.7 g/dl (32.0-35.9); MEAN CELL VOLUME 93.8 fl (80-96); MONO % 13.2 % (3.8-10.2); PLATELET COUNT 94 K/MM3 (134-434); RBC 3.65 M/mm3 (4.00-5.60); RDW 17.2 % (11.9-15.9)
[2019-02-04 08:56] LABS: ALBUMIN 3.1 g/dl (3.4-5.0); BILIRUBIN,TOTAL 0.8 mg/dL (0.2-1); BLOOD UREA NITROGEN 22.4 mg/dL (7-18); CALCIUM 8.7 mg/dL (8.5-10.1); TOT PROT 6.8 g/dl (6.4-8.2)
[2019-02-04] MEDS ORDERED: PT OWN MED DRAWER 7, Y5N ONE ×2 (10:31→22:13)
[2019-02-04] MEDS: LOSARTAN POTASSIUM 25 MG TABLET PO SCH (10:34)
[2019-02-04] MEDS: azaTHIOprine 50 MG TABLET PO SCH ×2 (10:34→22:41)
[2019-02-04] MEDS: MULTIVITAMINS (DAILY MVI) TABLET (FP) PO SCH (10:34)
[2019-02-04] MEDS: ASPIRIN 325 MG ENTERIC COATED TABLET (FP) PO SCH (10:34)
[2019-02-04] MEDS: metoPROLOL SUCCINATE 25 MG TAB.SR.24H (FP) PO SCH (10:34)
[2019-02-04] MEDS: CALCIUM 250MG/VIT-D 125 UNITS 1 COMBO TABLET PO SCH (10:34)
[2019-02-04] MEDS: CYANOCOBALAMIN 1,000 MCG TABLET (FP) PO SCH (10:35)
[2019-02-04] MEDS: ERTAPENEM SODIUM 1 GM in SODIUM CHLORIDE 50 ML IVPB SCH (10:35)
--- NOTE | 2019-02-04 14:11 | PN ---
Progress Note, Physician Chief Complaint: patient seen and examined wants to go home - Current Medication List Current Medications: Active Medications Acetaminophen (Tylenol -) 650 mg PO Q6H PRN PRN Reason: FEVER Last Admin: 02/03/19 09:00 Dose: 650 mg Albuterol Sulfate (Ventolin 0.083% Nebulizer Soln -) 1 amp NEB Q6H PRN PRN Reason: SHORT OF BREATH/WHEEZING Aspirin (Ecotrin -) 325 mg PO DAILY [facility] Last Admin: 02/04/19 10:34 Dose: 325 mg Atorvastatin Calcium (Lipitor -) 40 mg PO HS [facility] Last Admin: 02/03/19 22:36 Dose: 40 mg Azathioprine (Imuran -) 50 mg PO BID [facility] Last Admin: 02/04/19 10:34 Dose: 50 mg Calcium/Vitamin D (Oscal 250 Mg+D -) 2 tab PO DAILY [facility] Last Admin: 02/04/19 10:34 Dose: 2 tab Cyanocobalamin (Vitamin B12 -) 1,000 mcg PO DAILY [facility] Last Admin: 02/04/19 10:35 Dose: 1,000 mcg Sodium Chloride (Normal Saline -) 1,000 mls @ 60 mls/hr IV ASDIR [facility] Last Admin: 02/04/19 03:05 Dose: 60 mls/hr Ertapenem 1 gm/ Sodium (Chloride) 50 mls @ 100 mls/hr IVPB DAILY [facility] Last Admin: 02/04/19 10:35 Dose: 100 mls/hr Losartan Potassium (Cozaar -) 25 mg PO DAILY [facility] Last Admin: 02/04/19 10:34 Dose: 25 mg Metoprolol Succinate (Toprol Xl -) 25 mg PO DAILY [facility] Last Admin: 02/04/19 10:34 Dose: 25 mg Multivitamins/Minerals/Vitamin C (Tab-A-Vit -) 1 tab PO DAILY [facility] Last Admin: 02/04/19 10:34 Dose: 1 tab Non-Formulary Medication (Mesalamine [Mesalamine]) 1.2 gm PO BID [facility] - Objective Vital Signs: Vital Signs Temperature 98.6 F 02/04/19 06:00 Pulse Rate 81 02/04/19 06:00 Respiratory Rate 18 02/04/19 06:00 Blood Pressure 141/86 02/04/19 06:00 O2 Sat by Pulse Oximetry (%) 95 02/03/19 23:00 Constitutional: Yes: Calm Cardiovascular: Yes: Regular Rate and Rhythm, S1, S2 Respiratory: Yes: CTA Bilaterally Gastrointestinal: Yes: Normal Bowel Sounds, Soft ...Rectal Exam: Yes: Other Genitourinary: Yes: Other (urostomy) Edema: No Neurological: Yes: Alert, Oriented Labs: CBC, BMP 02/04/19 07:30 02/04/19 07:30 INR, PTT INR 1.24 (0.83-1.09) H 02/02/19 20:24 Problem List - Problems (1) UTI (urinary tract infection) Assessment/Plan: Microbiology 02/02/19 21:05 Urine - Urine - Catheterized Urine Culture - Preliminary Lactose Fermenting Neg Bacilli Group D Strep Or Entero Coccus on ertrapenem Code(s): N39.0 - URINARY TRACT INFECTION, SITE NOT SPECIFIED Qualifiers: Urinary tract infection type: site unspecified Hematuria presence: with hematuria Qualified Code(s): N39.0 - Urinary tract infection, site not specified; R31.9 - Hematuria, unspecified (2) IBS (irritable bowel syndrome) Assessment/Plan: imuran mesalamine Code(s): K58.9 - IRRITABLE BOWEL SYNDROME WITHOUT DIARRHEA (3) HTN (hypertension) Assessment/Plan: cozaar Code(s): I10 - ESSENTIAL (PRIMARY) HYPERTENSION Qualifiers: Hypertension type: unspecified Qualified Code(s): I10 - Essential (primary ) hypertension
--- NOTE | 2019-02-04 14:42 | PN ---
Progress Note (short form) - Note Progress Note: he feels great no fevers no chills Vital Signs Period Temp Pulse Resp BP Sys/Anderson Pulse Ox Last 24 Hr 98 F-98.6 F 81-88 18-20 134-149/66-86 95-95 cor-rrr lungs clear abd soft,nt urostomy with a catheter in place??, clear urine today ext no edema CBC, BMP 02/04/19 07:30 02/04/19 07:30 Microbiology 02/02/19 21:05 Urine - Urine - Catheterized Urine Culture - Preliminary Lactose Fermenting Neg Bacilli Group D Strep Or Entero Coccus 02/02/19 20:24 Blood - Peripheral Venous Blood Culture - Preliminary NO GROWTH OBTAINED AFTER 24 HOURS, INCUBATION TO CONTINUE FOR 4 DAYS. 02/02/19 20:24 Blood - Peripheral Venous Blood Culture - Preliminary NO GROWTH OBTAINED AFTER 24 HOURS, INCUBATION TO CONTINUE FOR [address] scan with increased right hydronephrosis and hydorureter/stranding right perinephric fat a/p suspect recurrent urosepsis/right hydronephrosis - should be seen by urology continue ertapenem per patient he had a PCN removed last month and the current tube in his urostomy is scheduled to be removed in February suspect infection is due to recurrent hydronephrosis his urologist is dr Justin Rao [phone]-he is away in [facility],- patient has appt next to see him his urologist at [facility] is Dr Elias Gerardo [phone]- he is out of the office this week- spoke to his TECHNICAL SUPPORT ENGINEER-11/11 PCN placed,, converted to retrograde PCN for ureteral stricture on the right december 09 fax - for Dr Gerardo office -they would like a copy of the ct scan report d/w Dr Keyes- she will ask urology to see him
[2019-02-04] MEDS: ATORVASTATIN CA 40 MG TABLET (FP) PO SCH (22:41)
[2019-02-05 10:14] LABS: IRON SERUM 49 ug/dL (50-175); TOTAL IRON BINDING CAPACITY 211 ug/dL (250-450)
[2019-02-05 10:22] LABS: ALBUMIN 3.2 g/dl (3.4-5.0); BILIRUBIN,TOTAL 0.6 mg/dL (0.2-1); BLOOD UREA NITROGEN 22.2 mg/dL (7-18); POTASSIUM 4.4 mmol/L (3.5-5.1); TOT PROT 7.2 g/dl (6.4-8.2)
[2019-02-05] MEDS ORDERED: PT OWN MED DRAWER 7, Y5N ONE ×3 (10:22→21:12)
[2019-02-05] MEDS: ASPIRIN 325 MG ENTERIC COATED TABLET (FP) PO SCH (10:24)
[2019-02-05] MEDS: LOSARTAN POTASSIUM 25 MG TABLET PO SCH (10:24)
[2019-02-05] MEDS: MULTIVITAMINS (DAILY MVI) TABLET (FP) PO SCH (10:25)
[2019-02-05] MEDS: azaTHIOprine 50 MG TABLET PO SCH ×2 (10:25→21:17)
[2019-02-05] MEDS: CALCIUM 250MG/VIT-D 125 UNITS 1 COMBO TABLET PO SCH (10:25)
[2019-02-05] MEDS: metoPROLOL SUCCINATE 25 MG TAB.SR.24H (FP) PO SCH (10:25)
[2019-02-05] MEDS: CYANOCOBALAMIN 1,000 MCG TABLET (FP) PO SCH (10:26)
[2019-02-05] MEDS: ERTAPENEM SODIUM 1 GM in SODIUM CHLORIDE 50 ML IVPB SCH (10:26)
[2019-02-05] MEDS: ACETAMINOPHEN 325 MG TABLET (FP) PO PRN (11:39)
--- NOTE | 2019-02-05 13:21 | PN ---
Progress Note (short form) - Note Progress Note: no complaints Vital Signs Period Temp Pulse Resp BP Sys/Anderson Pulse Ox Last 24 Hr 97.9 F-98.1 F 65-70 18-18 108-123/59-67 cor-rrr lungs clear abd soft,nt +urostomy with retrograde PCN ext no edema CBC, BMP 02/04/19 07:30 02/05/19 08:39 Microbiology 02/02/19 21:05 Urine - Urine - Catheterized Urine Culture - Preliminary Escherichia Coli Esbl Customer Service Advisor Group D Strep Or Entero Coccus Pending Organism 02/02/19 20:24 Blood - Peripheral Venous Blood Culture - Preliminary NO GROWTH OBTAINED AFTER 48 HOURS, INCUBATION TO CONTINUE FOR 3 DAYS. 02/02/19 20:24 Blood - Peripheral Venous Blood Culture - Preliminary NO GROWTH OBTAINED AFTER 48 HOURS, INCUBATION TO CONTINUE FOR [address] scan with increased right hydronephrosis and hydorureter/stranding right perinephric fat Current Medications Acetaminophen (Tylenol -) 650 mg PO Q6H PRN PRN Reason: FEVER Last Admin: 02/05/19 11:39 Dose: 650 mg Albuterol Sulfate (Ventolin 0.083% Nebulizer Soln -) 1 amp NEB Q6H PRN PRN Reason: SHORT OF BREATH/WHEEZING Aspirin (Ecotrin -) 325 mg PO DAILY [facility] Last Admin: 02/05/19 10:24 Dose: 325 mg Atorvastatin Calcium (Lipitor -) 40 mg PO HS [facility] Last Admin: 02/04/19 22:41 Dose: 40 mg Azathioprine (Imuran -) 50 mg PO BID [facility] Last Admin: 02/05/19 10:25 Dose: 50 mg Calcium/Vitamin D (Oscal 250 Mg+D -) 2 tab PO DAILY [facility] Last Admin: 02/05/19 10:25 Dose: 2 tab Cyanocobalamin (Vitamin B12 -) 1,000 mcg PO DAILY [facility] Last Admin: 02/05/19 10:26 Dose: 1,000 mcg Sodium Chloride (Normal Saline -) 1,000 mls @ 60 mls/hr IV ASDIR [facility] Last Admin: 02/04/19 03:05 Dose: 60 mls/hr Ertapenem 1 gm/ Sodium (Chloride) 50 mls @ 100 mls/hr IVPB DAILY [facility] Last Admin: 02/05/19 10:26 Dose: 100 mls/hr Losartan Potassium (Cozaar -) 25 mg PO DAILY [facility] Last Admin: 02/05/19 10:24 Dose: 25 mg Metoprolol Succinate (Toprol Xl -) 25 mg PO DAILY [facility] Last Admin: 02/05/19 10:25 Dose: 25 mg Multivitamins/Minerals/Vitamin C (Tab-A-Vit -) 1 tab PO DAILY [facility] Last Admin: 02/05/19 10:25 Dose: 1 tab Non-Formulary Medication (Mesalamine [Mesalamine]) 1.2 gm PO BID [facility] a/p suspect recurrent urosepsis/right hydronephrosis - should be seen by urology continue ertapenem per patient he had a PCN removed last month and the current tube in his urostomy is scheduled to be removed in February suspect infection is due to recurrent hydronephrosis his urologist is dr Justin Rao [phone]-he is away in [facility],- patient has appt next to see him his urologist at [place] is Dr Elias Gerardo [phone]- he is out of the office this week- spoke to his SLIVER LAP MACHINE TENDER-11/11 PCN placed,, converted to retrograde PCN for ureteral stricture on the right december 09 fax - for Dr Gerardo office -they would like a copy of the ct scan report awaiting urology evaluation 'awaiting final culture results now with thrombocytopenia would repeat cbc in am
--- NOTE | 2019-02-05 14:20 | PN ---
Progress Note, Physician Chief Complaint: awake alert no distress wants to go home platelet count noted will repeat in AM awaiting urology evaluation - Current Medication List Current Medications: Active Medications Acetaminophen (Tylenol -) 650 mg PO Q6H PRN PRN Reason: FEVER Last Admin: 02/05/19 11:39 Dose: 650 mg Albuterol Sulfate (Ventolin 0.083% Nebulizer Soln -) 1 amp NEB Q6H PRN PRN Reason: SHORT OF BREATH/WHEEZING Aspirin (Ecotrin -) 325 mg PO DAILY [facility] Last Admin: 02/05/19 10:24 Dose: 325 mg Atorvastatin Calcium (Lipitor -) 40 mg PO HS [facility] Last Admin: 02/04/19 22:41 Dose: 40 mg Azathioprine (Imuran -) 50 mg PO BID [facility] Last Admin: 02/05/19 10:25 Dose: 50 mg Calcium/Vitamin D (Oscal 250 Mg+D -) 2 tab PO DAILY [facility] Last Admin: 02/05/19 10:25 Dose: 2 tab Cyanocobalamin (Vitamin B12 -) 1,000 mcg PO DAILY [facility] Last Admin: 02/05/19 10:26 Dose: 1,000 mcg Sodium Chloride (Normal Saline -) 1,000 mls @ 60 mls/hr IV ASDIR [facility] Last Admin: 02/04/19 03:05 Dose: 60 mls/hr Ertapenem 1 gm/ Sodium (Chloride) 50 mls @ 100 mls/hr IVPB DAILY [facility] Last Admin: 02/05/19 10:26 Dose: 100 mls/hr Losartan Potassium (Cozaar -) 25 mg PO DAILY [facility] Last Admin: 02/05/19 10:24 Dose: 25 mg Metoprolol Succinate (Toprol Xl -) 25 mg PO DAILY [facility] Last Admin: 02/05/19 10:25 Dose: 25 mg Multivitamins/Minerals/Vitamin C (Tab-A-Vit -) 1 tab PO DAILY [facility] Last Admin: 02/05/19 10:25 Dose: 1 tab Non-Formulary Medication (Mesalamine [Mesalamine]) 1.2 gm PO BID [facility] - Objective Vital Signs: Vital Signs Temperature 97.8 F 02/05/19 08:50 Pulse Rate 60 02/05/19 08:50 Respiratory Rate 18 02/05/19 08:50 Blood Pressure 120/80 02/05/19 08:50 O2 Sat by Pulse Oximetry (%) 98 02/04/19 09:00 Constitutional: Yes: Calm Cardiovascular: Yes: Regular Rate and Rhythm, S1, S2 Respiratory: Yes: CTA Bilaterally Gastrointestinal: Yes: Normal Bowel Sounds, Soft Edema: No Labs: CBC, BMP 02/04/19 07:30 02/05/19 08:39 INR, PTT INR 1.24 (0.83-1.09) H 02/02/19 20:24 Problem List - Problems (1) Thrombocytopenia Assessment/Plan: repeat cbc in AM heme eval Code(s): D69.6 - THROMBOCYTOPENIA, UNSPECIFIED (2) UTI (urinary tract infection) Assessment/Plan: Microbiology 02/02/19 21:05 Urine - Urine - Catheterized Urine Culture - Preliminary Lactose Fermenting Neg Bacilli Group D Strep Or Entero Coccus on ertrapenem Code(s): N39.0 - URINARY TRACT INFECTION, SITE NOT SPECIFIED Qualifiers: Urinary tract infection type: site unspecified Hematuria presence: with hematuria Qualified Code(s): N39.0 - Urinary tract infection, site not specified; R31.9 - Hematuria, unspecified (3) IBS (irritable bowel syndrome) Assessment/Plan: imuran mesalamine Code(s): K58.9 - IRRITABLE BOWEL SYNDROME WITHOUT DIARRHEA (4) HTN (hypertension) Assessment/Plan: cozaar Code(s): I10 - ESSENTIAL (PRIMARY) HYPERTENSION Qualifiers: Hypertension type: unspecified Qualified Code(s): I10 - Essential (primary ) hypertension Assessment/Plan aawiting urology eval iv abx per ID repeat platelet in AM possible dc on friday
--- NOTE | 2019-02-05 16:18 | PN ---
Progress Note (short form) - Note Progress Note: CONSULT DICTATED 73 year old male presents with fevers, urosepsis secondary to E. Coli Microbiology 02/02/19 21:05 Urine - Urine - Catheterized Urine Culture - Preliminary Escherichia Coli Esbl Patient Companion Group D Strep Or Entero Coccus Pending Organism 02/02/19 20:24 Blood - Peripheral Venous Blood Culture - Preliminary NO GROWTH OBTAINED AFTER 48 HOURS, INCUBATION TO CONTINUE FOR 3 DAYS. 02/02/19 20:24 Blood - Peripheral Venous Blood Culture - Preliminary NO GROWTH OBTAINED AFTER 48 HOURS, INCUBATION TO CONTINUE FOR 3 DAYS. Microbiology 02/02/19 21:05 Urine - Urine - Catheterized Urine Culture - Preliminary Escherichia Coli Esbl Patient Companion Group D Strep Or Entero Coccus Pending Organism 02/02/19 20:24 Blood - Peripheral Venous Blood Culture - Preliminary NO GROWTH OBTAINED AFTER 48 HOURS, INCUBATION TO CONTINUE FOR 3 DAYS. 02/02/19 20:24 Blood - Peripheral Venous Blood Culture - Preliminary NO GROWTH OBTAINED AFTER 48 HOURS, INCUBATION TO CONTINUE FOR 3 DAYS. Noted to have mild thrombocytopenia/ Previously with normal platelet count. History of bladder ca s/p cystectomy with ileal conduit. Hx of inflammatory bowel disease on mesalamine and immuran History of splenomegaly reported in CT scan in 2016. ON current CT- fatty liver with splenomegaly. Current Fe++ studies compatible with chronic disease wit low serum Fe++ and low TIBC. Last Vital Signs Temp Pulse Resp BP Pulse Ox 97.8 F 60 18 120/80 98 02/05/19 08:50 02/05/19 08:50 02/05/19 08:50 02/05/19 08:50 02/04/19 09:00 HEENT: DRISS, EOM Intact Oropharynx: No thrush, No mucositis Neck: Supple Nodes: Without adenopathy Cor: RSR, No murmurs, No gallops Lungs: Clear to P&A Abd: Soft, ventral henia ; ileal conduit Ext:No significant edema Skin: No rashes, Integument intact CBC, BMP 02/04/19 07:30 02/05/19 08:39 Current Medications Generic Name Dose Route Start Last Admin Trade Name Freq PRN Reason Stop Dose Admin Acetaminophen 650 mg 02/03/19 01:37 02/05/19 11:39 Tylenol - PO 650 mg Q6H PRN Administration FEVER Albuterol Sulfate 1 amp 02/03/19 01:37 Ventolin 0.083% Nebulizer Soln - NEB Q6H PRN SHORT OF BREATH/WHEEZING Aspirin 325 mg 02/03/19 10:00 02/05/19 10:24 Ecotrin - PO 325 mg DAILY [facility] Administration Atorvastatin Calcium 40 mg 02/03/19 22:00 02/04/19 22:41 Lipitor - PO 40 mg HS [facility] Administration Azathioprine 50 mg 02/03/19 10:00 02/05/19 10:25 Imuran - PO 50 mg BID [facility] Administration Calcium/Vitamin D 2 tab 02/03/19 10:00 02/05/19 10:25 Oscal 250 Mg+D - PO 2 tab DAILY [facility] Administration Cyanocobalamin 1,000 mcg 02/03/19 10:00 02/05/19 10:26 Vitamin B12 - PO 1,000 mcg DAILY [facility] Administration Ertapenem 1 gm/ Sodium 50 mls @ 100 mls/hr 02/03/19 14:45 02/05/19 10:26 Chloride IVPB 100 mls/hr DAILY [facility] Administration Losartan Potassium 25 mg 02/03/19 10:00 02/05/19 10:24 Cozaar - PO 25 mg DAILY [facility] Administration Metoprolol Succinate 25 mg 02/03/19 10:00 02/05/19 10:25 Toprol Xl - PO 25 mg DAILY [facility] Administration Multivitamins/Minerals/Vitamin C 1 tab 02/03/19 10:00 02/05/19 10:25 Tab-A-Vit - PO 1 tab DAILY [facility] Administration Non-Formulary Medication 1.2 gm 02/03/19 10:00 Mesalamine [Mesalamine] PO BID [facility] Impression: Thrombocytopenia- likely secondary to urosepsis Splenomegaly present since 2015 ---?contributing to thrombocytopenia Urosepsis HBP H/O bladder ca- s/p ileal conduit HPL Inflammatory bowel disease on mesalamine and immuran--? contribution to thrombocytopenia Anemia with iron studies compatible with chronic disease. Suggest - thrombocytopenia --would monitor for now Splenomegaly --?? secondary to fatty liver , ? other-- for screening tests.
--- NOTE | 2019-02-05 16:47 | CONS ---
DATE OF CONSULTATION: 02/05/2019 REASON FOR CONSULTATION: Patient being seen for evaluation of thrombocytopenia. CONSULTATION REQUESTED BY: Duncan Appiah MD HISTORY: This 73-year-old man entered febrile. He has a history of multiple urinary tract infections with E. coli ESBL. He has been admitted multiple times to [facility], last in October of 2018, at which time he was treated with ertapenem. On admission, the patient's platelet count was 124,000. It has remained in this range over the past several days. Of note is in [address] scan which revealed splenomegaly, and the current CT scan still shows splenomegaly with a fatty liver as well. SOCIAL HISTORY: The patient worked for [employer]. He formerly smoked 2 packs per day, discontinued 35 years ago. He drank socially. He denies illicit drugs. He was in [place] in the winter, was treated with Macrobid. FAMILY HISTORY: Includes a mother who had cancer, a sister who had cancer, questionable types. PAST MEDICAL HISTORY: Includes hypertension, hyperlipidemia, colitis, bladder cancer status post ileal conduit with urostomy. The patient has a history of TIA and a history of inflammatory bowel disease. REVIEW OF SYSTEMS: Patient denies headaches, diplopia, epistaxis, dysphagia. Has some shortness of breath. No cough. No reflux. No nausea, vomiting, diarrhea, constipation. No hematuria. Functioning ileal conduit and urostomy. No significant back or bone pain. No significant numbness or tingling. PHYSICAL EXAMINATION: Vital Signs: BP 120/80, pulse 60, respiratory 18, temp 97.8. HEENT: PERRLA, EOM intact. Oropharynx unremarkable. No cervical, supraclavicular, or axillary nodes. Lungs: Relatively clear. Cardiac: RSR. Abdomen: Ventral hernia with ileal conduit. Extremities: No significant edema. LABORATORY: Previously October 27, 2018, 154,000 platelets with WBC 2.5, hemoglobin 9.5. On admission on February 02, WBC 7.8, hematocrit 36, platelets 114,000, repeat 124,000, currently 94,000. White count 4000. Hematocrit 34, 67 polys, 17 lymphs, 13 monos. INR 1.24. PTT 19.6. Chemistries: Sodium 144, potassium 44, chloride 110, CO2 of 24, creatinine 1, glucose 130, calcium 9, protein 7.2, albumin 3.2. Iron 49, TIBC 211, iron saturation 23%. AST 26, ALT 24, alkaline phosphatase 57. Abdominopelvic CT: Right renal hydronephrosis, slightly worse than previously. Moderate right hydroureter to the level of the ileal conduit. Right perinephric fat stranding as well as edema around the right renal pelvis and ureteropelvic junction. Splenomegaly which apparently was present on a CT scan in 2016. Gallstones. Ventral hernia containing bowel loops and mesenteric fat without evidence of incarceration or obstruction. IMPRESSION: A 73-year-old who presents once again with febrile course. Laboratory once again reveals Escherichia coli extended-spectrum beta-lactamase with group B streptococcus and enterococcus. Patient currently on ertapenem. Is receiving Imuran for inflammatory bowel disease. Is on mesalamine, Cozaar, ertapenem, Ventolin, Toprol, Lipitor, multivitamins, aspirin 325, calcium, vitamin D, and B12. Etiology of thrombocytopenia, which is acute as was not present several months ago, seems to be related to infection. There is enlarged spleen, so there could be a secondary component of hypersplenism as well. Anemia seems to be related to chronic disease with low iron, low total iron binding capacity. Patient on B12 therapy. Patient does have a reverse A/G ratio such that protein studies can be obtained as well. Thyroid as well to be obtained. KAUSHAL GONSALEZ M.D. [id number]
[2019-02-05] MEDS: ATORVASTATIN CA 40 MG TABLET (FP) PO SCH (21:17)
[2019-02-06] MEDS ORDERED: FERRIC CARBOXYMALTOSE 750 MG in SODIUM CHLORIDE 250 ML IVPB ONE (06:31)
[2019-02-06 07:16] LABS: BASO % 0.6 % (0-2.0); EOS % 3.6 % (0-4.5); HEMATOCRIT 30.9 % (35.4-49); HEMOGLOBIN 10.3 GM/dL (11.7-16.9); LYMPH % 23.6 % (8-40); MCH 30.8 pg (25.7-33.7); MCHC 33.4 g/dl (32.0-35.9); MEAN CELL VOLUME 92.2 fl (80-96); MEAN PLT VOLUME 9.5 fl (7.5-11.1); MONO % 10.7 % (3.8-10.2); NEUT % 61.5 % (42.8-82.8); PLATELET COUNT 107 K/MM3 (134-434); RBC 3.35 M/mm3 (4.00-5.60); RDW 16.5 % (11.9-15.9); WHITE BLOOD COUNT 2.8 K/mm3 (4.0-10.0)
[2019-02-06] MEDS: ERTAPENEM SODIUM 1 GM in SODIUM CHLORIDE 50 ML IVPB SCH (10:55)
[2019-02-06] MEDS: MULTIVITAMINS (DAILY MVI) TABLET (FP) PO SCH (10:55)
[2019-02-06] MEDS: metoPROLOL SUCCINATE 25 MG TAB.SR.24H (FP) PO SCH (10:55)
[2019-02-06] MEDS: LOSARTAN POTASSIUM 25 MG TABLET PO SCH (10:55)
[2019-02-06] MEDS: ASPIRIN 325 MG ENTERIC COATED TABLET (FP) PO SCH (10:55)
[2019-02-06] MEDS ORDERED: PT OWN MED DRAWER 7, Y5N ONE ×2 (10:59→20:22)
[2019-02-06] MEDS: CALCIUM 250MG/VIT-D 125 UNITS 1 COMBO TABLET PO SCH (10:59)
[2019-02-06] MEDS: CYANOCOBALAMIN 1,000 MCG TABLET (FP) PO SCH (10:59)
[2019-02-06] MEDS: azaTHIOprine 50 MG TABLET PO SCH ×2 (11:00→22:27)
--- NOTE | 2019-02-06 11:46 | CONS ---
DATE OF CONSULTATION: DATE OF DICTATION: 02/06/2019 Patient is a 73-year-old male with history of invasive bladder cancer. He is status post a radical cystectomy with ileal conduit. The conduit is patent and pink. An ultrasound of his kidneys revealed moderate right hydroureteronephrosis. This could be secondary to reflux due to the ileal conduit implantation or obstructive in nature due to ureteral ileal scarring. Will diuretic nuclear renal scan. This will rule out any mechanical obstruction. Pedro [id number]
--- NOTE | 2019-02-06 16:08 | PN ---
Progress Note, Physician Chief Complaint: UTI Bladder CA s/p Urostomy History of Present Illness: Previous notes and events reviewed awake and alert NAD denies chest pain or SOB pt sts he wants to go home afebrile no leukocytosis - Current Medication List Current Medications: Active Medications Acetaminophen (Tylenol -) 650 mg PO Q6H PRN PRN Reason: FEVER Last Admin: 02/05/19 11:39 Dose: 650 mg Albuterol Sulfate (Ventolin 0.083% Nebulizer Soln -) 1 amp NEB Q6H PRN PRN Reason: SHORT OF BREATH/WHEEZING Aspirin (Ecotrin -) 325 mg PO DAILY [facility] Last Admin: 02/06/19 10:55 Dose: 325 mg Atorvastatin Calcium (Lipitor -) 40 mg PO HS [facility] Last Admin: 02/05/19 21:17 Dose: 40 mg Azathioprine (Imuran -) 50 mg PO BID [facility] Last Admin: 02/06/19 11:00 Dose: 50 mg Calcium/Vitamin D (Oscal 250 Mg+D -) 2 tab PO DAILY [facility] Last Admin: 02/06/19 10:59 Dose: 2 tab Cyanocobalamin (Vitamin B12 -) 1,000 mcg PO DAILY [facility] Last Admin: 02/06/19 10:59 Dose: 1,000 mcg Ertapenem 1 gm/ Sodium (Chloride) 50 mls @ 100 mls/hr IVPB DAILY [facility] Last Admin: 02/06/19 10:55 Dose: 100 mls/hr Losartan Potassium (Cozaar -) 25 mg PO DAILY [facility] Last Admin: 02/06/19 10:55 Dose: 25 mg Metoprolol Succinate (Toprol Xl -) 25 mg PO DAILY [facility] Last Admin: 02/06/19 10:55 Dose: 25 mg Multivitamins/Minerals/Vitamin C (Tab-A-Vit -) 1 tab PO DAILY [facility] Last Admin: 02/06/19 10:55 Dose: 1 tab Non-Formulary Medication (Mesalamine [Mesalamine]) 1.2 gm PO BID [facility] - Objective Vital Signs: Vital Signs Temperature 97.5 F L 02/06/19 10:00 Pulse Rate 66 02/06/19 10:00 Respiratory Rate 17 02/06/19 10:00 Blood Pressure 133/72 02/06/19 10:00 O2 Sat by Pulse Oximetry (%) 97 02/06/19 09:00 Constitutional: Yes: No Distress, Calm Eyes: Yes: Conjunctiva Clear HENT: Yes: Atraumatic Cardiovascular: Yes: Regular Rate and Rhythm Respiratory: Yes: Regular, CTA Bilaterally Gastrointestinal: Yes: Normal Bowel Sounds, Soft Genitourinary: Yes: Other (urostomy) Musculoskeletal: Yes: WNL Extremities: Yes: WNL Edema: No Neurological: Yes: Alert, Oriented Psychiatric: Yes: Alert, Oriented Labs: CBC, BMP 02/06/19 06:00 02/05/19 08:39 INR, PTT INR 1.24 (0.83-1.09) H 02/02/19 20:24 Microbiology 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 02/02/19 20:24 Blood - Peripheral Venous Blood Culture - Preliminary NO GROWTH OBTAINED AFTER 72 HOURS, INCUBATION TO CONTINUE FOR 2 DAYS. - ....Imaging Cat Scan: Report Reviewed Problem List - Problems (1) Thrombocytopenia Assessment/Plan: -Hematology consult Code(s): D69.6 - THROMBOCYTOPENIA, UNSPECIFIED (2) UTI (urinary tract infection) Assessment/Plan: -ID on board -UA shows 2+ leuks, positive nitrite, 3+ blood, trace ketones, 3+ protein -UC positive ESBL-contact precaution -Renal/bladder scan shows mild to moderate hydronephrosis -Urology on board -tylenol for temp >100F -Ertapenem Code(s): N39.0 - URINARY TRACT INFECTION, SITE NOT SPECIFIED Qualifiers: Urinary tract infection type: site unspecified Hematuria presence: with hematuria Qualified Code(s): N39.0 - Urinary tract infection, site not specified; R31.9 - Hematuria, unspecified (3) Anemia Assessment/Plan: -Hematology on board -Hg 10.3 -monitor Hg daily -transfuse for Hg <8.0 -multivitamin Code(s): D64.9 - ANEMIA, UNSPECIFIED (4) Diabetes Assessment/Plan: -BGM ACHS -ISS -Hg 6.6% -Endo consult Code(s): E11.9 - TYPE 2 DIABETES MELLITUS WITHOUT COMPLICATIONS (5) HLD (hyperlipidemia) Assessment/Plan: -Atorvastatin Code(s): E78.5 - HYPERLIPIDEMIA, UNSPECIFIED Qualifiers: Hyperlipidemia type: unspecified Qualified Code(s): E78.5 - Hyperlipidemia , unspecified (6) HTN (hypertension) Assessment/Plan: -Metoprolol, Losartan -low Na diet Code(s): I10 - ESSENTIAL (PRIMARY) HYPERTENSION Qualifiers: Hypertension type: unspecified Qualified Code(s): I10 - Essential (primary ) hypertension (7) Weakness Assessment/Plan: -PT Code(s): R53.1 - WEAKNESS (8) Hydronephrosis Assessment/Plan: -Renal/bladder scan shows mild to moderate hydronephrosis -Urology on board -Renal Scan with Diuretic -BUN/Cr 22.0/1.0 Code(s): N13.30 - UNSPECIFIED HYDRONEPHROSIS Assessment/Plan see problem list
--- NOTE | 2019-02-06 21:38 | CONSULT ---
Consult Consult Specialty:: endocrine Referred by:: lam mahan np Reason for Consultation:: diabetes mellitus - History of Present Illness Chief Complaint: weak and poor appetite - Past Medical History GEMOLOGIST: Yes: TIA Cardio/Vascular: Yes: HTN, Hyperlipdemia Gastrointestinal: Yes: Inflamatory Bowel Disease Renal/: Yes: BPH, Cancer (Prostate), UTI, Other (SEE ABOVE) Endocrine: Yes: Diabetes Mellitus - Past Surgical History Past Surgical History: Yes: Cataract Removal, Ileosotomy - Alcohol/Substance Use Hx Alcohol Use: No History of Substance Use: reports: None - Smoking History Smoking history: Never smoked Have you smoked in the past 12 months: No Aproximately how many cigarettes per day: 10 If you are a former smoker, when did you quit?: 1989 - Social History Usual Living Arrangement: Alone (lives alone in apartment with 2 steps to enter) ADL: Independent (previously Independent in ADLs without AD) History of Recent Travel: No Home Medications - Allergies Allergies/Adverse Reactions: Allergies Allergy/AdvReac Type Severity Reaction Status Date / Time No Known Allergies Allergy Verified 10/23/18 14:54 - Home Medications Home Medications: Ambulatory Orders Cyanocobalamin [Vitamin B12 -] 1,000 mg PO DAILY 03/09/15 Multivitamins [Multivit ([facility] Formulary)] 1 tab PO DAILY 04/19/15 Calcium 250Mg/Vit-D 125 Units [Oscal 250 mg+D -] 2 combo PO DAILY #60 tablet Losartan Potassium [Cozaar -] 25 mg PO DAILY tablet 01/18/18 Metoprolol Succinate [Toprol XL -] 25 mg PO DAILY tab.sr.24h 01/18/18 Atorvastatin Ca [Lipitor] 40 mg PO DAILY 03/23/18 Azathioprine [Imuran -] 50 mg PO BID 03/23/18 Mesalamine 1.2 gm PO BID 03/23/18 Aspirin Coated [Ecotrin -] 325 mg PO DAILY 03/24/18 Acetaminophen [Tylenol .Regular Strength -] 650 mg PO Q6H PRN tablet 03/31/18 Albuterol 0.083% Nebulizer Richelle [Ventolin 0.083% Nebulizer Soln -] 1 amp NEB Q6H PRN amp 03/31/18 levoFLOXacin [Levaquin -] 500 mg PO DAILY #7 tablet 10/27/18 Review of Systems - Review of Systems Constitutional: reports: Lethargy, Weakness Eyes: reports: No Symptoms HENT: reports: No Symptoms Neck: reports: No Symptoms Cardiovascular: reports: Shortness of Breath Respiratory: reports: Exercise Intolerance, SOB on Exertion Gastrointestinal: reports: Bloating Genitourinary: reports: Flank Pain, Pain Breasts: reports: No Symptoms Reported Musculoskeletal: reports: Joint Pain, Joint Swelling Endocrine: reports: Unexplained Weight Loss Physical Exam Vital Signs: Vital Signs Temperature 97.6 F 02/06/19 16:30 Pulse Rate 71 02/06/19 16:30 Respiratory Rate 20 02/06/19 16:30 Blood Pressure 141/81 02/06/19 16:30 O2 Sat by Pulse Oximetry (%) 98 02/06/19 20:26 Constitutional: Yes: Anxious Eyes: Yes: EOM Intact HENT: Yes: Normocephalic Neck: Yes: Trachea Midline Cardiovascular: Yes: Regular Rate and Rhythm Respiratory: Yes: CTA Bilaterally Gastrointestinal: Yes: Normal Bowel Sounds ...Rectal Exam: Yes: Deferred Musculoskeletal: Yes: WNL, Muscle Weakness Extremities: Yes: WNL Neurological: Yes: Alert, Weakness Labs: CBC, BMP 02/06/19 06:00 02/05/19 08:39 Problem List - Problems (1) Diabetes 1.5, managed as type 2 Code(s): E13.9 - OTHER SPECIFIED DIABETES MELLITUS WITHOUT COMPLICATIONS (2) Atelectasis Code(s): J98.11 - ATELECTASIS (3) Bacteremia Code(s): R78.81 - BACTEREMIA (4) Change in mental status Code(s): R41.82 - ALTERED MENTAL STATUS, UNSPECIFIED (5) Colitis Code(s): K52.9 - NONINFECTIVE GASTROENTERITIS AND COLITIS, UNSPECIFIED Assessment/Plan Current Active Problems diabetes mellitus type 2 diabetic neuropathy Thrombocytopenia (Acute) UTI (urinary tract infection) (Acute) Weakness (Acute) Abnormal Lab Results 02/06/19 06:00 WBC 2.8 L RBC 3.35 L Hgb 10.3 L Hct 30.9 L RDW 16.5 H Plt Count 107 L Monocytes % 10.7 H Laboratory Tests 02/04/19 02/05/19 02/06/19 07:30 08:39 06:00 Sodium 144 Potassium 4.4 Chloride 110 H Carbon Dioxide 24 Anion Gap 10 Creatinine 1.0 Est GFR (CKD-EPI)AfAm 85.55 Est GFR (CKD-EPI)NonAf 73.82 Random Glucose 130 H Hemoglobin A1c % 6.6 H TSH 0.77 D Laboratory Tests 02/02/19 02/03/19 02/04/19 20:24 08:20 07:30 Random Glucose 228 H 180 H 137 H 02/05/19 08:39 Random Glucose 130 H plan: januvia 50mg qam continue bgm bid acmeal nutrition consultation
[2019-02-06] MEDS: INSULIN SLIDING SCALE (NOVOLOG) 1 VIAL SQ SCH (22:26)
[2019-02-06] MEDS: ATORVASTATIN CA 40 MG TABLET (FP) PO SCH (22:26)
[2019-02-07] MEDS: sitaGLIPtin PHOSPHATE 50 MG TABLET PO SCH (07:07)
[2019-02-07] MEDS: ACETAMINOPHEN 325 MG TABLET (FP) PO PRN (07:09)
[2019-02-07] MEDS: INSULIN SLIDING SCALE (NOVOLOG) 1 VIAL SQ SCH ×4 (07:09→22:24)
[2019-02-07 07:38] LABS: HEMATOCRIT 32.6 % (35.4-49); MCH 30.8 pg (25.7-33.7); MCHC 33.7 g/dl (32.0-35.9); MEAN CELL VOLUME 91.5 fl (80-96); MEAN PLT VOLUME 8.3 fl (7.5-11.1); PLATELET COUNT 120 K/MM3 (134-434); RBC 3.56 M/mm3 (4.00-5.60); RDW 16.5 % (11.9-15.9); WHITE BLOOD COUNT 3.1 K/mm3 (4.0-10.0)
[2019-02-07 08:10] LABS: ALBUMIN 3.2 g/dl (3.4-5.0); BILIRUBIN,TOTAL 0.6 mg/dL (0.2-1); BLOOD UREA NITROGEN 21.9 mg/dL (7-18); CALCIUM 8.9 mg/dL (8.5-10.1); CREATININE 1.1 mg/dL (0.55-1.3); POTASSIUM 3.9 mmol/L (3.5-5.1); TOT PROT 6.9 g/dl (6.4-8.2)
[2019-02-07] MEDS ORDERED: PT OWN MED DRAWER 7, Y5N ONE (09:56)
[2019-02-07] MEDS: azaTHIOprine 50 MG TABLET PO SCH ×2 (09:59→22:24)
[2019-02-07] MEDS: CALCIUM 250MG/VIT-D 125 UNITS 1 COMBO TABLET PO SCH (09:59)
[2019-02-07] MEDS: LOSARTAN POTASSIUM 25 MG TABLET PO SCH (09:59)
[2019-02-07] MEDS: CYANOCOBALAMIN 1,000 MCG TABLET (FP) PO SCH (09:59)
[2019-02-07] MEDS: MULTIVITAMINS (DAILY MVI) TABLET (FP) PO SCH (09:59)
[2019-02-07] MEDS: metoPROLOL SUCCINATE 25 MG TAB.SR.24H (FP) PO SCH (09:59)
[2019-02-07] MEDS: ASPIRIN 325 MG ENTERIC COATED TABLET (FP) PO SCH (09:59)
[2019-02-07] MEDS: ERTAPENEM SODIUM 1 GM in SODIUM CHLORIDE 50 ML IVPB SCH (10:00)
--- NOTE | 2019-02-07 11:29 | PN ---
Progress Note (short form) - Note Progress Note: no complaints feels well Vital Signs Period Temp Pulse Resp BP Sys/Anderson Pulse Ox Last 24 Hr 97.4 F-97.6 F 64-71 17-20 136-153/71-81 98 cor-rrr lungs clear abd soft, +urostomy with PCN (retrograde) ext no edema CBC, BMP 02/07/19 07:00 02/07/19 07:00 Microbiology 02/02/19 20:24 Blood - Peripheral Venous Blood Culture - Preliminary NO GROWTH OBTAINED AFTER 96 HOURS, INCUBATION TO CONTINUE FOR 1 DAYS. 02/02/19 20:24 Blood - Peripheral Venous Blood Culture - Preliminary NO GROWTH OBTAINED AFTER 96 HOURS, INCUBATION TO CONTINUE FOR 1 DAYS. 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 Enterococcus Faecalis ct scan with increased right hydronephrosis and hydorureter/stranding right perinephric fat Active Medications Acetaminophen (Tylenol -) 650 mg PO Q6H PRN PRN Reason: FEVER Last Admin: 02/07/19 07:09 Dose: 650 mg Albuterol Sulfate (Ventolin 0.083% Nebulizer Soln -) 1 amp NEB Q6H PRN PRN Reason: SHORT OF BREATH/WHEEZING Aspirin (Ecotrin -) 325 mg PO DAILY [facility] Last Admin: 02/07/19 09:59 Dose: 325 mg Atorvastatin Calcium (Lipitor -) 40 mg PO HS [facility] Last Admin: 02/06/19 22:26 Dose: 40 mg Azathioprine (Imuran -) 50 mg PO BID [facility] Last Admin: 02/07/19 09:59 Dose: 50 mg Calcium/Vitamin D (Oscal 250 Mg+D -) 2 tab PO DAILY [facility] Last Admin: 02/07/19 09:59 Dose: 2 tab Cyanocobalamin (Vitamin B12 -) 1,000 mcg PO DAILY [facility] Last Admin: 02/07/19 09:59 Dose: 1,000 mcg Ertapenem 1 gm/ Sodium (Chloride) 50 mls @ 100 mls/hr IVPB DAILY [facility] Last Admin: 02/07/19 10:00 Dose: 100 mls/hr Insulin Aspart (Novolog Vial Sliding Scale -) 1 vial SQ ACHS [facility]; Protocol Last Admin: 02/07/19 07:09 Dose: Not Given Losartan Potassium (Cozaar -) 25 mg PO DAILY [facility] Last Admin: 02/07/19 09:59 Dose: 25 mg Metoprolol Succinate (Toprol Xl -) 25 mg PO DAILY [facility] Last Admin: 02/07/19 09:59 Dose: 25 mg Multivitamins/Minerals/Vitamin C (Tab-A-Vit -) 1 tab PO DAILY [facility] Last Admin: 02/07/19 09:59 Dose: 1 tab Non-Formulary Medication (Mesalamine [Mesalamine]) 1.2 gm PO BID [facility] Sitagliptin Phosphate (Januvia -) 50 mg PO DAILY@0700 [facility] Last Admin: 02/07/19 07:07 Dose: 50 mg a/p suspect recurrent urosepsis/right hydronephrosis - should be seen by urology ertapenem day #5 can switch to po bactrim1 ds po bid if okay for discharge with urology should f/u with urology as outpt per patient he had a PCN removed last month and the current tube in his urostomy is scheduled to be removed in February suspect infection is due to recurrent hydronephrosis his urologist is dr Justin Rao [phone]-he is away in [facility],- patient has appt next to see him his urologist at [place] is Dr Elias Gerardo [phone]- he is out of the office this week- 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
--- NOTE | 2019-02-07 12:05 | PN ---
Progress Note, Physician Chief Complaint: UTI Bladder CA s/p Urostomy History of Present Illness: Previous notes and events reviewed awake and alert NAD denies chest pain or SOB pt sts he wants to go home afebrile no leukocytosis pt requests to be seen by different urologist--new consult placed - Current Medication List Current Medications: Active Medications Acetaminophen (Tylenol -) 650 mg PO Q6H PRN PRN Reason: FEVER Last Admin: 02/07/19 07:09 Dose: 650 mg Albuterol Sulfate (Ventolin 0.083% Nebulizer Soln -) 1 amp NEB Q6H PRN PRN Reason: SHORT OF BREATH/WHEEZING Aspirin (Ecotrin -) 325 mg PO DAILY [facility] Last Admin: 02/07/19 09:59 Dose: 325 mg Atorvastatin Calcium (Lipitor -) 40 mg PO HS [facility] Last Admin: 02/06/19 22:26 Dose: 40 mg Azathioprine (Imuran -) 50 mg PO BID [facility] Last Admin: 02/07/19 09:59 Dose: 50 mg Calcium/Vitamin D (Oscal 250 Mg+D -) 2 tab PO DAILY [facility] Last Admin: 02/07/19 09:59 Dose: 2 tab Cyanocobalamin (Vitamin B12 -) 1,000 mcg PO DAILY [facility] Last Admin: 02/07/19 09:59 Dose: 1,000 mcg Ertapenem 1 gm/ Sodium (Chloride) 50 mls @ 100 mls/hr IVPB DAILY [facility] Last Admin: 02/07/19 10:00 Dose: 100 mls/hr Insulin Aspart (Novolog Vial Sliding Scale -) 1 vial SQ ACHS [facility]; Protocol Last Admin: 02/07/19 07:09 Dose: Not Given Losartan Potassium (Cozaar -) 25 mg PO DAILY [facility] Last Admin: 02/07/19 09:59 Dose: 25 mg Metoprolol Succinate (Toprol Xl -) 25 mg PO DAILY [facility] Last Admin: 02/07/19 09:59 Dose: 25 mg Multivitamins/Minerals/Vitamin C (Tab-A-Vit -) 1 tab PO DAILY [facility] Last Admin: 02/07/19 09:59 Dose: 1 tab Non-Formulary Medication (Mesalamine [Mesalamine]) 1.2 gm PO BID [facility] Sitagliptin Phosphate (Januvia -) 50 mg PO DAILY@0700 [facility] Last Admin: 02/07/19 07:07 Dose: 50 mg - Objective Vital Signs: Vital Signs Temperature 97.6 F 02/07/19 06:00 Pulse Rate 71 02/07/19 06:00 Respiratory Rate 20 02/07/19 06:00 Blood Pressure 153/71 02/07/19 06:00 O2 Sat by Pulse Oximetry (%) 98 02/06/19 20:26 Constitutional: Yes: No Distress, Calm Eyes: Yes: Conjunctiva Clear HENT: Yes: Atraumatic Cardiovascular: Yes: Regular Rate and Rhythm Respiratory: Yes: Regular, CTA Bilaterally Gastrointestinal: Yes: Normal Bowel Sounds, Soft Genitourinary: Yes: Other (urostomy) Musculoskeletal: Yes: WNL Extremities: Yes: WNL Edema: No Neurological: Yes: Alert, Oriented Psychiatric: Yes: Alert, Oriented Labs: CBC, BMP 02/07/19 07:00 02/07/19 07:00 INR, PTT INR 1.24 (0.83-1.09) H 02/02/19 20:24 Microbiology 02/02/19 20:24 Blood - Peripheral Venous Blood Culture - Preliminary NO GROWTH OBTAINED AFTER 96 HOURS, INCUBATION TO CONTINUE FOR 1 DAYS. 02/02/19 20:24 Blood - Peripheral Venous Blood Culture - Preliminary NO GROWTH OBTAINED AFTER 96 HOURS, INCUBATION TO CONTINUE FOR 1 DAYS. 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 Enterococcus Faecalis Problem List - Problems (1) Thrombocytopenia Assessment/Plan: -Hematology consult -PLT 120--showing uptrend Code(s): D69.6 - THROMBOCYTOPENIA, UNSPECIFIED (2) UTI (urinary tract infection) Assessment/Plan: -ID on board -UA shows 2+ leuks, positive nitrite, 3+ blood, trace ketones, 3+ protein -UC positive ESBL-contact precaution -Renal/bladder scan shows mild to moderate hydronephrosis -Urology consult placed -tylenol for temp >100F -Ertapenem Code(s): N39.0 - URINARY TRACT INFECTION, SITE NOT SPECIFIED Qualifiers: Urinary tract infection type: site unspecified Hematuria presence: with hematuria Qualified Code(s): N39.0 - Urinary tract infection, site not specified; R31.9 - Hematuria, unspecified (3) Anemia Assessment/Plan: -Hematology on board -Hg 11.0 -monitor Hg daily -transfuse for Hg <8.0 -multivitamin Code(s): D64.9 - ANEMIA, UNSPECIFIED (4) Diabetes Assessment/Plan: -[facility] ACHS -ISS -Hg 6.6% -Endo consult Code(s): E11.9 - TYPE 2 DIABETES MELLITUS WITHOUT COMPLICATIONS (5) HLD (hyperlipidemia) Assessment/Plan: -Atorvastatin Code(s): E78.5 - HYPERLIPIDEMIA, UNSPECIFIED Qualifiers: Hyperlipidemia type: unspecified Qualified Code(s): E78.5 - Hyperlipidemia , unspecified (6) HTN (hypertension) Assessment/Plan: -Metoprolol, Losartan -low Na diet Code(s): I10 - ESSENTIAL (PRIMARY) HYPERTENSION Qualifiers: Hypertension type: unspecified Qualified Code(s): I10 - Essential (primary ) hypertension (7) Weakness Assessment/Plan: -PT Code(s): R53.1 - WEAKNESS (8) Hydronephrosis Assessment/Plan: -Renal/bladder scan shows mild to moderate hydronephrosis -Urology consult -Renal Scan with Diuretic orded -BUN/Cr 21.9/1.1 Code(s): N13.30 - UNSPECIFIED HYDRONEPHROSIS Assessment/Plan see problem list
[2019-02-07] MEDS: ATORVASTATIN CA 40 MG TABLET (FP) PO SCH (22:24)
[2019-02-08 03:32] VITALS: TEMP 98.3
[2019-02-08 06:35] VITALS: BP 143/71; PULSE 67
[2019-02-08] MEDS: INSULIN SLIDING SCALE (NOVOLOG) 1 VIAL SQ SCH (07:09)
[2019-02-08] MEDS: sitaGLIPtin PHOSPHATE 50 MG TABLET PO SCH (07:09)
--- NOTE | 2019-02-08 08:15 | DS ---
Physical Examination Vital Signs: Vital Signs Temperature 98.3 F 02/07/19 22:00 Pulse Rate 67 02/08/19 06:00 Respiratory Rate 20 02/08/19 06:00 Blood Pressure 143/71 02/08/19 06:00 O2 Sat by Pulse Oximetry (%) 98 02/07/19 09:00 Findings/Remarks: EVENTS AND NOTES REVIEWED PATIENT FEELS GOOD NO FEVER OR CHILLS HAS APPOINTMENT TODAY WITH HIS UROLOGIST DR. HENNING Constitutional: Yes: No Distress Eyes: Yes: WNL HENT: Yes: WNL Neck: Yes: WNL Cardiovascular: Yes: Regular Rate and Rhythm Respiratory: Yes: WNL Gastrointestinal: Yes: Other (USOSTOMY) Musculoskeletal: Yes: Muscle Weakness Edema: No Peripheral Pulses WNL: Yes Integumentary: Yes: WNL Wound/Incision: Yes: Clean/Dry Neurological: Yes: WNL ...Motor Strength: WNL Psychiatric: Yes: WNL Labs: CBC, BMP 02/07/19 07:00 02/07/19 07:00 Discharge Summary Reason For Visit: URINARY TRACT INFECTION Current Active Problems Diabetes 1.5, managed as type 2 (Acute) Thrombocytopenia (Acute) UTI (urinary tract infection) (Acute) Weakness (Acute) Procedures: Principal: CT SCAN Hospital Course: ADMITTED WITH RIGHT HYDRONEPHROSIS ON IV ABX WILL CONTINUE WITH HIS UROLOGIST AT [place] DR WINSLOW PO ABX FOR 3 DAYS, DC PLANNING Condition: Stable - Instructions Diet, Activity, Other Instructions: REG FOOD SEE DR WINSLOW TODAY BACTRIM DS BID X 3 DAYS Disposition: VNS/HOME HEALTH CARE - Home Medications Comprehensive Discharge Medication List: Ambulatory Orders Cyanocobalamin [Vitamin B12 -] 1,000 mg PO DAILY 03/09/15 Multivitamins [Multivit ([facility] Formulary)] 1 tab PO DAILY 04/19/15 Calcium 250Mg/Vit-D 125 Units [Oscal 250 mg+D -] 2 combo PO DAILY #60 tablet Losartan Potassium [Cozaar -] 25 mg PO DAILY tablet 01/18/18 Metoprolol Succinate [Toprol XL -] 25 mg PO DAILY tab.sr.24h 01/18/18 Atorvastatin Ca [Lipitor] 40 mg PO DAILY 03/23/18 Azathioprine [Imuran -] 50 mg PO BID 03/23/18 Mesalamine 1.2 gm PO BID 03/23/18 Aspirin Coated [Ecotrin -] 325 mg PO DAILY 03/24/18 Acetaminophen [Tylenol .Regular Strength -] 650 mg PO Q6H PRN tablet 03/31/18 Albuterol 0.083% Nebulizer Richelle [Ventolin 0.083% Nebulizer Soln -] 1 amp NEB Q6H PRN amp 03/31/18 levoFLOXacin [Levaquin -] 500 mg PO DAILY #7 tablet 10/27/18
[2019-02-08 08:33] LABS: HEMATOCRIT 31.5 % (35.4-49); HEMOGLOBIN 10.6 GM/dL (11.7-16.9); MCH 30.6 pg (25.7-33.7); MCHC 33.6 g/dl (32.0-35.9); MEAN CELL VOLUME 91.1 fl (80-96); MEAN PLT VOLUME 9.7 fl (7.5-11.1); PLATELET COUNT 135 K/MM3 (134-434); RBC 3.46 M/mm3 (4.00-5.60); RDW 16.5 % (11.9-15.9); WHITE BLOOD COUNT 4.2 K/mm3 (4.0-10.0)
[2019-02-08 09:05] LABS: ALBUMIN 3.2 g/dl (3.4-5.0); BILIRUBIN,TOTAL 0.5 mg/dL (0.2-1); BLOOD UREA NITROGEN 25.1 mg/dL (7-18); CALCIUM 8.7 mg/dL (8.5-10.1); CREATININE 1.1 mg/dL (0.55-1.3); TOT PROT 6.8 g/dl (6.4-8.2)
--- NOTE | 2019-02-08 12:30 | CONS ---
DATE OF CONSULTATION: DATE OF DICTATION: 02/05/2019 HISTORY: Patient is a 73-year-old male with history of invasive bladder cancer. He is status post an ileal conduit 2 years ago in [place]. He presents to the emergency room with E. coli ESBL urosepsis. He has been getting frequent urinary tract infections associated with confusion. His last admission to the hospital was in October of 2018. He was again diagnosed with E. coli ESBL. He was discharged home on Levaquin. In the hospital, he was treated with . On February 02, he came to the emergency room not feeling well, weak, and lethargic for several days. He was noted to have a temperature of 101.8. In the emergency room, he was given vancomycin and Zosyn. Besides the ileal conduit, the patient has had hernia repair. He also has history of high blood pressure, dyslipidemia, IBS. He has had TIAs in the past. He denies any smoking. His abdomen is soft. His urostomy is pink, and it is patent. Urine is clear. IZABELLA NOGUERA M.D. [id number]
--- NOTE | 2019-02-08 15:07 | PN ---
Progress Note (short form) - Note Progress Note: patient came in with confusion and not feeling well febrile possible metabolic encephalophathy secondary to UTI Problem List - Problems (1) Thrombocytopenia Code(s): D69.6 - THROMBOCYTOPENIA, UNSPECIFIED (2) UTI (urinary tract infection) Code(s): N39.0 - URINARY TRACT INFECTION, SITE NOT SPECIFIED Qualifiers: Urinary tract infection type: site unspecified Hematuria presence: with hematuria Qualified Code(s): N39.0 - Urinary tract infection, site not specified; R31.9 - Hematuria, unspecified (3) IBS (irritable bowel syndrome) Code(s): K58.9 - IRRITABLE BOWEL SYNDROME WITHOUT DIARRHEA (4) HTN (hypertension) Code(s): I10 - ESSENTIAL (PRIMARY) HYPERTENSION Qualifiers: Hypertension type: unspecified Qualified Code(s): I10 - Essential (primary ) hypertension
[2019-02-08 17:08] LABS: HGB SOLUBILITY Negative (Negative); Hgb C 0 % (0.0); Hgb F 0.6 % (0.0-2.0); Hgb S 0 % (0.0)
[2019-02-09 08:09] LABS: KAPPA LAMBDA RATIO URIN 12.15 (2.04-10.37)
[2019-02-09 17:09] LABS: FREE KAPPA,SERUM 48.7 mg/L (3.3-19.4)
== END 2019-02-08 09:30 | disposition home health service (06) | DRG 689 ==
LOC: JER 19:22 → JERBED 23:32 → J8W 02-03 20:38
PROVIDERS: ADMIT Family Medicine; ATTEND Family Medicine
DX: N13.6 Pyonephrosis (principal); G93.41 Metabolic encephalopathy; E11.9 Type 2 diabetes mellitus without complications; I10 Essential (primary) hypertension; E78.5 Hyperlipidemia, unspecified; R16.1 Splenomegaly, not elsewhere classified; K76.0 Fatty (change of) liver, not elsewhere classified; D69.6 Thrombocytopenia, unspecified; N40.0 Benign prostatic hyperplasia without lower urinary tract symptoms; K58.9 Irritable bowel syndrome, unspecified; R53.1 Weakness; R50.9 Fever, unspecified; Z86.19 Personal history of other infectious and parasitic diseases; D63.8 Anemia in other chronic diseases classified elsewhere; Z85.46 Personal history of malignant neoplasm of prostate; Z85.51 Personal history of malignant neoplasm of bladder; Z86.73 Personal history of transient ischemic attack (TIA), and cerebral infarction without residual deficits; Z87.891 Personal history of nicotine dependence
CPT/HCPCS: 36415; 71045-TC-FY; 74176-TC; 76775-TC; 76856-TC; 80048; 80053; 81003; 82784; 82803; 82962; 83021; 83036; 83540; 83550; 83605; 83883; 84155; 84165; 84443; 84484; 85025; 85027; 85610; 85660; 85730; 86038; 87040; 87086; 87186; 93005; 93010; 99285-25; J0131; J1439; J7030

== ENCOUNTER 2019-03-02 20:27 | Inpatient (IN) | payer OTHER, MEDICARE ==
--- NOTE | 2019-03-02 22:12 | PDOC ---
History of Present Illness - General Chief Complaint: Weakness Stated Complaint: FALL Time Seen by Provider: 03/02/19 22:12 Past History - Past Medical History Allergies/Adverse Reactions: Allergies Allergy/AdvReac Type Severity Reaction Status Date / Time No Known Allergies Allergy Verified 03/02/19 20:55 Home Medications: Ambulatory Orders Cyanocobalamin [Vitamin B12 -] 1,000 mg PO DAILY 03/09/15 Multivitamins [Multivit ([facility] Formulary)] 1 tab PO DAILY 04/19/15 Calcium 250Mg/Vit-D 125 Units [Oscal 250 mg+D -] 2 combo PO DAILY #60 tablet Losartan Potassium [Cozaar -] 25 mg PO DAILY tablet 01/18/18 Metoprolol Succinate [Toprol XL -] 25 mg PO DAILY tab.sr.24h 01/18/18 Atorvastatin Ca [Lipitor] 40 mg PO DAILY 03/23/18 Azathioprine [Imuran -] 50 mg PO BID 03/23/18 Mesalamine 1.2 gm PO BID 03/23/18 Aspirin Coated [Ecotrin -] 325 mg PO DAILY 03/24/18 Acetaminophen [Tylenol .Regular Strength -] 650 mg PO Q6H PRN tablet 03/31/18 Albuterol 0.083% Nebulizer Richelle [Ventolin 0.083% Nebulizer Soln -] 1 amp NEB Q6H PRN amp 03/31/18 Sulfamethoxazole/Trimethoprim [Bactrim Ds -] 1 tab PO BID #6 tablet 02/08/19 Anemia: No Asthma: No Cancer: Yes (PROSTATE with rad ,UROSTOMY) Cardiac Disorders: No CVA: No COPD: No CHF: No DVT: No Dementia: No Diabetes: Yes (hx borderline) GI Disorders: Yes (COLITIS) Disorders: No HTN: Yes Hypercholesterolemia: Yes Liver Disease: No Seizures: No Thyroid Disease: No - Surgical History Abdominal Surgery: Yes (HERNIA,UROSTOMY) Appendectomy: No Cardiac Surgery: No Cholecystectomy: No GI Surgery: Yes Lung Surgery: No Neurologic Surgery: No Orthopedic Surgery: No - Immunization History Td Vaccination: Yes TDAP Vaccination: Yes Immunization Up to Date: Yes - Suicide/Smoking/Psychosocial Hx Smoking History: Never smoked Have you smoked in the past 12 months: No Number of Cigarettes Smoked Daily: 10 If you are a former smoker, when did you quit?: 1989 'Breaking Loose' booklet given: 05/02/17 Hx Alcohol Use: No Drug/Substance Use Hx: No Substance Use Type: None Hx Substance Use Treatment: No *Physical Exam - Vital Signs Last Vital Signs Temp Pulse Resp BP Pulse Ox 98.5 F 88 18 142/81 94 L 03/02/19 20:52 03/02/19 20:52 03/02/19 20:52 03/02/19 20:52 03/02/19 20:52 *DC/Admit/Observation/Transfer - Referrals Referrals: Duncan Appiah MD [Primary Care Provider] - - Patient Instructions - Post Discharge Activity
[2019-03-02] MEDS ORDERED: SODIUM CHLORIDE 0.9% 500 ML INFUS.BAG IV ONE (22:38)
--- NOTE | 2019-03-02 22:40 | PDOC ---
History of Present Illness - General Chief Complaint: Weakness Stated Complaint: FALL Time Seen by Provider: 03/02/19 22:12 - History of Present Illness Initial Comments: Josh Smith is a 73yo man with a PMH of HTN, HLD, colitis, bladder CA s/p radiation with urostomy, TIA, frequent UTI who presents to the ED after a fall at home. He appears confused and uanble to provide information. He initially states that he fainted when getting up but later denies fainting. He repeatedly states that he "has a problem." Per chart review, Mr Smith has been seen previously with AMS secondary to UTI. Past History - Past Medical History Allergies/Adverse Reactions: Allergies Allergy/AdvReac Type Severity Reaction Status Date / Time No Known Allergies Allergy Verified 03/02/19 20:55 Home Medications: Ambulatory Orders Cyanocobalamin [Vitamin B12 -] 1,000 mg PO DAILY 03/09/15 Multivitamins [Multivit ([facility] Formulary)] 1 tab PO DAILY 04/19/15 Calcium 250Mg/Vit-D 125 Units [Oscal 250 mg+D -] 2 combo PO DAILY #60 tablet Losartan Potassium [Cozaar -] 25 mg PO DAILY tablet 01/18/18 Metoprolol Succinate [Toprol XL -] 25 mg PO DAILY tab.sr.24h 01/18/18 Atorvastatin Ca [Lipitor] 40 mg PO DAILY 03/23/18 Azathioprine [Imuran -] 50 mg PO BID 03/23/18 Mesalamine 1.2 gm PO BID 03/23/18 Aspirin Coated [Ecotrin -] 325 mg PO BID 03/24/18 Acetaminophen [Tylenol .Regular Strength -] 650 mg PO Q6H PRN tablet 03/31/18 Albuterol 0.083% Nebulizer Richelle [Ventolin 0.083% Nebulizer Soln -] 1 amp NEB Q6H PRN amp 03/31/18 Sulfamethoxazole/Trimethoprim [Bactrim Ds -] 1 tab PO BID #6 tablet 02/08/19 Ferrous Sulfate [Feosol] 325 mg PO DAILY 03/02/19 Pyridoxine HCl (B-6) [Vitamin B6] 50 mg PO DAILY 03/02/19 Anemia: No Asthma: No Cancer: Yes (PROSTATE with rad ,UROSTOMY) Cardiac Disorders: No CVA: No COPD: No CHF: No DVT: No Dementia: No Diabetes: Yes (hx borderline) GI Disorders: Yes (COLITIS) Disorders: No HTN: Yes Hypercholesterolemia: Yes Liver Disease: No Seizures: No Thyroid Disease: No - Surgical History Abdominal Surgery: Yes (HERNIA,UROSTOMY) Appendectomy: No Cardiac Surgery: No Cholecystectomy: No GI Surgery: Yes Lung Surgery: No Neurologic Surgery: No Orthopedic Surgery: No - Immunization History Td Vaccination: Yes TDAP Vaccination: Yes Immunization Up to Date: Yes - Suicide/Smoking/Psychosocial Hx Smoking History: Never smoked Have you smoked in the past 12 months: No Number of Cigarettes Smoked Daily: 10 If you are a former smoker, when did you quit?: 1989Breaking Loose' booklet given: 05/02/17 Hx Alcohol Use: No Drug/Substance Use Hx: No Substance Use Type: None Hx Substance Use Treatment: No Review of Systems - Review of Systems Comments:: Pt confused, could not obtain *Physical Exam - Vital Signs Last Vital Signs Temp Pulse Resp BP Pulse Ox 98.5 F 88 18 142/81 94 L 03/02/19 20:52 03/02/19 20:52 03/02/19 20:52 03/02/19 20:52 03/02/19 20:52 - Physical Exam Comments: General: In no acute distress HEENT: Atraumatic, PERRL, EOMI, MMM, voice normal Cards: RRR, no murmur appreciated Pulm: Comfortable on room air, clear to auscultation bilaterally Abd: Soft, nontender, nondistended : Urostomy bag, dark colored urine Ext: Atraumatic. No LE edema. Moves all extremities Skin: Normal color, no rashes or lesions Neuro: Awake, confused, unable to provide answers to questions, CN grossly intact, normal speech, motor/sensory grossly intact and symmetric Psych: Mood appropriate to situation ED Treatment Course - LABORATORY CBC & Chemistry Diagram: 03/02/19 23:30 03/02/19 23:30 - RADIOLOGY Radiology Studies Ordered: Category Date Time Status CERVICAL SPINE CT W/O CONTR [CT] Stat CT Scan 03/02/19 22:[address] WITHOUT CONTRAST [CT] Stat CT Scan 03/02/19 22:38 Ordered CHEST - PA [RAD] Stat Radiology 03/02/19 22:37 Ordered Medical Decision Making - Medical Decision Making 03/02/19 22:39 Josh Smith is a 73yo man with a PMH of HTN, HLD, colitis, bladder CA s/p radiation with urostomy, TIA, frequent UTI who presents to the ED with AMS and a fall at home. He appears confused and uanble to provide information. - Suspect UTI given appearance of urine in urostomy bag, confusion - No fever, tachycardia, tachypnea - CBC, CMP, UA, UCx, EKG, trop - CT head given possible fall 03/03/19 01:01 - UA grossly positive - Remainder of labs unremarkable - Will admit for UTI, AMS 03/03/19 01:37 - CT head negative for acute pathology. Notes small infarcts of undetermined age. CT c-spine negative - Ertapenem ordered for UTI - was given during last infection per ID consult - [employer] sent for admission 03/03/19 02:08 - Sign out given to MARIAN Shankar. Accepted to med/surg on Dr Appiah's service Discussed with Dr Andre Garcia PGY2 *DC/Admit/Observation/Transfer Diagnosis at time of Disposition: History of ESBL Klebsiella pneumoniae infection, History of urostomy, Weakness , Complicated UTI (urinary tract infection), Toxic metabolic encephalopathy Change in mental status Qualifiers: Altered mental status type: transient alteration of awareness Qualified Code(s) : R40.4 - Transient alteration of awareness - Discharge Dispostion Decision to Admit order: Yes - Referrals Referrals: Duncan Appiah MD [Primary Care Provider] - - Patient Instructions - Post Discharge Activity
[2019-03-02 23:40] LABS: BASO % 0.4 % (0-2.0); EOS % 0.2 % (0-4.5); HEMATOCRIT 36.6 % (35.4-49); HEMOGLOBIN 11.9 GM/dL (11.7-16.9); LYMPH % 14.8 % (8-40); MCH 30.2 pg (25.7-33.7); MCHC 32.6 g/dl (32.0-35.9); MEAN CELL VOLUME 92.8 fl (80-96); MEAN PLT VOLUME 8.3 fl (7.5-11.1); MONO % 8.3 % (3.8-10.2); NEUT % 76.3 % (42.8-82.8); PLATELET COUNT 160 K/MM3 (134-434); RBC 3.94 M/mm3 (4.00-5.60); RDW 16.2 % (11.9-15.9); WHITE BLOOD COUNT 6.5 K/mm3 (4.0-10.0)
[2019-03-03 00:21] LABS: ALBUMIN 3.6 g/dl (3.4-5.0); BLOOD UREA NITROGEN 22.5 mg/dL (7-18); CALCIUM 9.1 mg/dL (8.5-10.1); CREATININE 1.1 mg/dL (0.55-1.3); MAGNESIUM 2.1 mg/dL (1.8-2.4); POTASSIUM 4.6 mmol/L (3.5-5.1); TOT PROT 7.7 g/dl (6.4-8.2)
[2019-03-03 00:32] LABS: PH,URINE 5.5 (5.0-8.0); URINE APPEARANCE CLOUDY; URINE BILIRUBIN NEGATIVE (NEGATIVE); URINE COLOR YELLOW; URINE GLUCOSE (UA) NEGATIVE (NEGATIVE); URINE KETONE NEGATIVE (NEGATIVE); URINE NITRITE POSITIVE (NEGATIVE); URINE PROTEIN 1+ (NEGATIVE); URINE UROBILINOGEN 0.2 mg/dL (0.2-1.0)
[2019-03-03 00:33] LABS: EPI CELLS 1.2 /HPF (0-5/HPF); HYALINE CASTS 580.81 /lpf (0-8); URINE BACTERIA 3127.8 /hpf (NEGATIVE); URINE LEUK ESTERASE 2+ (NEGATIVE); URINE RBC 19.4 /hpf (0-4)
--- NOTE | 2019-03-03 00:58 | PDOC ---
Attending Attestation - Resident Resident Name: Uzma Garcia - ED Attending Attestation I have performed the following: I have examined & evaluated the patient, The case was reviewed & discussed with the resident, I agree w/resident's findings & plan, Exceptions are as noted - HPI HPI: 03/03/19 00:58 this 73 yo male p/w confusion and stated he had a fall - Physicial Exam PE: 03/03/19 02:57 I agree with physical exam done by Dr Garcia - Medical Decision Making 03/03/19 02:57 this pt has AMS and UTI 03/03/19 03:01 pt started in antibiotics ,he has h/o ESBL on prior admissions ct scan head no acute bleed or infarct pt admitted med/surg
[2019-03-03] MEDS ORDERED: ERTAPENEM SODIUM 1 GM in SODIUM CHLORIDE 50 ML IVPB ONE (01:07)
--- NOTE | 2019-03-03 03:22 | HP ---
Admitting History and Physical - Primary Care Physician PCP: Colin Donnelly - Admission Chief Complaint: Fall History of Present Illness: This is a 73 y/o man with a PMHx of HTN, HLD, TIA (no residual),borderline DM, Colitis, IBS, Bladder Ca s/p RT, Ileal Conduit Placement), Frequent UTIs. Who presents to the ED after a fall at home. Patient is confused and unable to provide HPI. He denies any complaints. He denies fever, chills, [place], dizziness, SOB, CP, palpitations, AP, N/V/D, constipation. History Source: Medical Record Limitations to Obtaining History: Clinical Condition - Past Medical History LINE PERSON: Yes: TIA Cardiovascular: Yes: HTN, Hyperlipdemia Gastrointestinal: Yes: Inflamatory Bowel Disease Renal/: Yes: BPH, Cancer (Prostate), UTI, Other (SEE ABOVE) Endocrine: Yes: Diabetes Mellitus - Past Surgical History Past Surgical History: Yes: Cataract Removal, Ileosotomy - Smoking History Smoking history: Former smoker Have you smoked in the past 12 months: No Aproximately how many cigarettes per day: 10 If you are a former smoker, when did you quit?: 1989 - Alcohol/Substance Use Hx Alcohol Use: No History of Substance Use: reports: None - Social History Usual Living Arrangement: Yes: Alone ADL: Independent (previously Independent in ADLs without AD) History of Recent Travel: No Home Medications - Allergies Allergies/Adverse Reactions: Allergies Allergy/AdvReac Type Severity Reaction Status Date / Time No Known Allergies Allergy Verified 03/02/19 20:55 - Home Medications Home Medications: Ambulatory Orders Cyanocobalamin [Vitamin B12 -] 1,000 mg PO DAILY 03/09/15 Multivitamins [Multivit ([facility] Formulary)] 1 tab PO DAILY 04/19/15 Calcium 250Mg/Vit-D 125 Units [Oscal 250 mg+D -] 2 combo PO DAILY #60 tablet Losartan Potassium [Cozaar -] 25 mg PO DAILY tablet 01/18/18 Metoprolol Succinate [Toprol XL -] 25 mg PO DAILY tab.sr.24h 01/18/18 Atorvastatin Ca [Lipitor] 40 mg PO DAILY 03/23/18 Azathioprine [Imuran -] 50 mg PO BID 03/23/18 Mesalamine 1.2 gm PO BID 03/23/18 Aspirin Coated [Ecotrin -] 325 mg PO BID 03/24/18 Acetaminophen [Tylenol .Regular Strength -] 650 mg PO Q6H PRN tablet 03/31/18 Albuterol 0.083% Nebulizer Richelle [Ventolin 0.083% Nebulizer Soln -] 1 amp NEB Q6H PRN amp 03/31/18 Sulfamethoxazole/Trimethoprim [Bactrim Ds -] 1 tab PO BID #6 tablet 02/08/19 Ferrous Sulfate [Feosol] 325 mg PO DAILY 03/02/19 Pyridoxine HCl (B-6) [Vitamin B6] 50 mg PO DAILY 03/02/19 Family Disease History - Family Disease History Family History: Unable to Obtain Review of Systems Unable to obtain ROS, reason: Clinical Condition Physical Examination Vital Signs: Vital Signs Temperature 98.5 F 03/02/19 20:52 Pulse Rate 88 03/02/19 20:52 Respiratory Rate 18 03/02/19 20:52 Blood Pressure 142/81 03/02/19 20:52 O2 Sat by Pulse Oximetry (%) 94 L 03/02/19 20:52 Constitutional: Yes: No Distress, Calm, Other (confused) Eyes: Yes: WNL, Conjunctiva Clear, PERRL HENT: Yes: WNL, Atraumatic, Normocephalic Neck: Yes: WNL, Supple, Trachea Midline Cardiovascular: Yes: WNL, Regular Rate and Rhythm, S1, S2 Respiratory: Yes: WNL, Regular, CTA Bilaterally Gastrointestinal: Yes: Normal Bowel Sounds, Soft, Other (Urostomy- Abdomen) Renal/: Yes: Other (Urostomy Bag with cloudy yellow urine) Breast(s): Yes: WNL Musculoskeletal: Yes: WNL Extremities: Yes: WNL Edema: No Peripheral Pulses WNL: Yes Neurological: Yes: Alert, Confusion ...Motor Strength: WNL Psychiatric: Yes: WNL, Alert, Oriented Labs: CBC, BMP 03/02/19 23:30 03/02/19 23:30 Laboratory Results - last 24 hr 03/02/19 03/02/19 03/02/19 23:30 23:30 23:30 WBC 6.5 RBC 3.94 L Hgb 11.9 Hct 36.6 D MCV 92.8 MCH 30.2 MCHC 32.6 RDW 16.2 H Plt Count 160 MPV 8.3 D Absolute Neuts (auto) 5.0 Neutrophils % 76.3 D Lymphocytes % 14.8 D Monocytes % 8.3 Eosinophils % 0.2 D Basophils % 0.4 Nucleated RBC % 0 Sodium 138 Potassium 4.6 Chloride 104 Carbon Dioxide 28 Anion Gap 6 L BUN 22.5 H Creatinine 1.1 Est GFR (CKD-EPI)AfAm 76.24 Est GFR (CKD-EPI)NonAf 65.78 Random Glucose 137 H Calcium 9.1 Magnesium 2.1 Total Bilirubin 1.0 AST 35 ALT 18 Alkaline Phosphatase 59 Creatine Kinase 112 Troponin I < 0.02 Total Protein 7.7 Albumin 3.6 Urine Color Urine Appearance Urine pH Ur Specific [place] Urine Protein Urine Glucose (UA) Urine Ketones Urine Blood Urine Nitrite Urine Bilirubin Urine Urobilinogen Ur Leukocyte Esterase Urine WBC (Auto) Urine RBC (Auto) Urine Casts (Auto) U Pathogenic Cast Auto U Epithel Cells (Auto) Urine Bacteria (Auto) 03/02/19 23:39 WBC RBC Hgb Hct MCV MCH MCHC RDW Plt Count MPV Absolute Neuts (auto) Neutrophils % Lymphocytes % Monocytes % Eosinophils % Basophils % Nucleated RBC % Sodium Potassium Chloride Carbon Dioxide Anion Gap BUN Creatinine Est GFR (CKD-EPI)AfAm Est GFR (CKD-EPI)NonAf Random Glucose Calcium Magnesium Total Bilirubin AST ALT Alkaline Phosphatase Creatine Kinase Troponin I Total Protein Albumin Urine Color Yellow Urine Appearance Cloudy Urine pH 5.5 Ur Specific [place] 1.017 Urine Protein 1+ H Urine Glucose (UA) Negative Urine Ketones Negative Urine Blood Moderate Urine Nitrite Positive H Urine Bilirubin Negative Urine Urobilinogen 0.2 Ur Leukocyte Esterase 2+ H Urine WBC (Auto) 124.0 Urine RBC (Auto) 19.4 Urine Casts (Auto) 580.81 U Pathogenic Cast Auto Negative U Epithel Cells (Auto) 1.2 Urine Bacteria (Auto) 3127.8 Intake & Output 02/28/19 03/01/19 03/02/19 03/03/19 23:59 23:59 23:59 23:59 Weight 63.503 kg Current Medications Generic Name Dose Route Start Last Admin Trade Name Freq PRN Reason Stop Dose Admin Aspirin 81 mg 03/03/19 10:00 Asa - PO DAILY [facility] Atorvastatin Calcium 40 mg 03/03/19 22:00 Lipitor - PO HS [facility] Azathioprine 50 mg 03/03/19 10:00 Imuran - PO BID [facility] Heparin Sodium (Porcine) 5,000 unit 03/03/19 10:00 Heparin - SQ BID [facility] Losartan Potassium 25 mg 03/03/19 10:00 Cozaar - PO DAILY [facility] Metoprolol Succinate 25 mg 03/03/19 10:00 Toprol Xl - PO DAILY [facility] Multivitamins/Minerals/Vitamin C 1 tab 03/03/19 10:00 Tab-A-Vit - PO DAILY [facility] Non-Formulary Medication 1.2 gm 03/03/19 10:00 Mesalamine [Mesalamine] PO BID [facility] Pyridoxine HCl 50 mg 03/03/19 10:00 Vitamin B6 - PO DAILY [facility] Imaging - Results Chest X-ray: Image Reviewed Cat Scan: Image Reviewed EKG: Image Reviewed Problem List - Problems (1) Complicated UTI (urinary tract infection) Assessment/Plan: Hx ESBL UA- +1 protein, +2 leukocyte esterase, +nitrate, 124 wbc, 3127 bacteria Urine Culture-pending Ertapenem given in ED, will continue Appreciate ID consult Monitor CBC, BMP Monitor vitals Code(s): N39.0 - URINARY TRACT INFECTION, SITE NOT SPECIFIED (2) Toxic metabolic encephalopathy Assessment/Plan: Likely due to UTI Head CT- chronic small infarcts Neurochecks Fall Precautions Monitor vitals Consider Neurology consult if condition worsens Code(s): G92 - TOXIC ENCEPHALOPATHY (3) HTN (hypertension) Assessment/Plan: stable Monitor BP Continue home meds with parameters Monitor renal function Code(s): I10 - ESSENTIAL (PRIMARY) HYPERTENSION Qualifiers: Hypertension type: unspecified Qualified Code(s): I10 - Essential (primary ) hypertension (4) HLD (hyperlipidemia) Assessment/Plan: Continue atorvastatin Monitor LFTs Code(s): E78.5 - HYPERLIPIDEMIA, UNSPECIFIED Qualifiers: Hyperlipidemia type: unspecified Qualified Code(s): E78.5 - Hyperlipidemia , unspecified (5) Diabetes Assessment/Plan: stable Diet Controlled BGMs Code(s): E11.9 - TYPE 2 DIABETES MELLITUS WITHOUT COMPLICATIONS (6) Anemia Assessment/Plan: stable Hgb 11.9 at baseline Will transfuse if Hgb < 7.0 Monitor CBC Code(s): D64.9 - ANEMIA, UNSPECIFIED (7) Colitis Assessment/Plan: stable Continue home meds Code(s): K52.9 - NONINFECTIVE GASTROENTERITIS AND COLITIS, UNSPECIFIED (8) TIA (transient ischemic attack) Assessment/Plan: stable Head CT- chronic small infarcts Continue Asa, Lipitor, BB Fall Precautions Code(s): G45.9 - TRANSIENT CEREBRAL ISCHEMIC ATTACK, UNSPECIFIED (9) History of ESBL Klebsiella pneumoniae infection Code(s): Z86.19 - PERSONAL HISTORY OF OTHER INFECTIOUS AND PARASITIC DISEASES (10) History of urostomy Code(s): Z98.890 - OTHER SPECIFIED POSTPROCEDURAL STATES (11) History of ileal conduit Code(s): Z98.890 - OTHER SPECIFIED POSTPROCEDURAL STATES (12) History of prostate cancer Code(s): Z85.46 - PERSONAL HISTORY OF MALIGNANT NEOPLASM OF PROSTATE Assessment/Plan This is a 73 y/o man with a PMHx of HTN, HLD, TIA (no residual),borderline DM, Colitis, IBS, Bladder Ca s/pRT, Ileal Conduit Placement). Admitted to [facility] for Complicated UTI, AMS for further evaluation of their emergent condition. Plan: See Problem List FEN PO fluid as tolerated Replete lytes prn Low Na, Diabetic Diet DVT ppx OOB SCDs Heparin SQ Dispo: Requires Inpatient Care Visit type - Emergency Visit Emergency Visit: Yes ED Registration Date: 03/03/19 Care time: The patient presented to the Emergency Department on the above date and was hospitalized for further evaluation of their emergent condition. - New Patient This patient is new to me today: Yes Date on this admission: 03/03/19 - Critical Care Critical Care patient: No
[2019-03-03] MEDS ORDERED: ERTAPENEM SODIUM 1 GM VIAL ONE (03:28)
[2019-03-03] MEDS ORDERED: SODIUM CHLORIDE 500 ML IV STA (04:03)
[2019-03-03 07:24] LABS: BASO % 0.3 % (0-2.0); EOS % 0.7 % (0-4.5); HEMATOCRIT 31.7 % (35.4-49); HEMOGLOBIN 10.5 GM/dL (11.7-16.9); LYMPH % 18.7 % (8-40); MCH 30.5 pg (25.7-33.7); MEAN CELL VOLUME 92.3 fl (80-96); MONO % 10.7 % (3.8-10.2); NEUT % 69.6 % (42.8-82.8); PLATELET COUNT 140 K/MM3 (134-434); RBC 3.43 M/mm3 (4.00-5.60); RDW 16.2 % (11.9-15.9)
[2019-03-03 07:47] LABS: BLOOD UREA NITROGEN 21.6 mg/dL (7-18); CALCIUM 8.1 mg/dL (8.5-10.1); PHOSPHOROUS 3.5 mg/dL (2.5-4.9)
--- NOTE | 2019-03-03 08:47 | PN ---
Progress Note, Physician Chief Complaint: Complicated UTI Fall TOxic Metabolic Encephalopathy History of Present Illness: Previous notes and events reviewed awake and alert NAD patient states feeling good but does not remember how fell denies generalized body pain denies SOB or chest pain - Current Medication List Current Medications: Active Medications Aspirin (Asa -) 81 mg PO DAILY [facility] Atorvastatin Calcium (Lipitor -) 40 mg PO HS [facility] Azathioprine (Imuran -) 50 mg PO BID [facility] Heparin Sodium (Porcine) (Heparin -) 5,000 unit SQ BID [facility] Ertapenem 1 gm/ Sodium (Chloride) 50 mls @ 100 mls/hr IVPB DAILY [facility] Losartan Potassium (Cozaar -) 25 mg PO DAILY [facility] Metoprolol Succinate (Toprol Xl -) 25 mg PO DAILY [facility] Multivitamins/Minerals/Vitamin C (Tab-A-Vit -) 1 tab PO DAILY [facility] Non-Formulary Medication (Mesalamine [Mesalamine]) 1.2 gm PO BID [facility] Pyridoxine HCl (Vitamin B6 -) 50 mg PO DAILY [facility] - Objective Vital Signs: Vital Signs Temperature 98.5 F 03/02/19 20:52 Pulse Rate 74 03/03/19 03:40 Respiratory Rate 20 03/03/19 03:40 Blood Pressure 103/55 L 03/03/19 03:40 O2 Sat by Pulse Oximetry (%) 94 L 03/03/19 03:40 Constitutional: Yes: No Distress, Calm Eyes: Yes: Conjunctiva Clear HENT: Yes: Atraumatic Cardiovascular: Yes: Regular Rate and Rhythm Respiratory: Yes: Regular, CTA Bilaterally Gastrointestinal: Yes: Normal Bowel Sounds, Soft Genitourinary: Yes: Other (urostomy) Musculoskeletal: Yes: Muscle Weakness Extremities: Yes: WNL Edema: No Neurological: Yes: Alert, Oriented Psychiatric: Yes: Alert, Oriented Labs: CBC, BMP 03/03/19 06:21 03/03/19 06:21 Problem List - Problems (1) Complicated UTI (urinary tract infection) Assessment/Plan: -ID consult -received Ertapenem in ER, will continue Ertapenem 1g daily monitor renal function -no leukocytosis -afebrile -UA shows 2+ leukocyte esterase, positive nitrite -UC pending -most likely secondary to urostomy Code(s): N39.0 - URINARY TRACT INFECTION, SITE NOT SPECIFIED (2) History of ESBL Klebsiella pneumoniae infection Assessment/Plan: -contact precaution -ID on board Code(s): Z86.19 - PERSONAL HISTORY OF OTHER INFECTIOUS AND PARASITIC DISEASES (3) Toxic metabolic encephalopathy Assessment/Plan: -improving -possibly 2/2 to UTI -Head CT scan shows no evidence of acute intracranial hemorrhage, edema, midline shift, mass effect, skull fracture, supratentorial chronic white matter microangiopathic ischemic changes, chronic ischemic changes left thalamus, left coronal radiatal/left frontal lobe subcortical white matter -neuro checks -fall precautions Code(s): G92 - TOXIC ENCEPHALOPATHY (4) Diabetes mellitus, insulin dependent (IDDM), uncontrolled Assessment/Plan: -BGM ACHS -diabetic diet Code(s): E10.65 - TYPE 1 DIABETES MELLITUS WITH HYPERGLYCEMIA (5) HLD (hyperlipidemia) Assessment/Plan: -Atorvastatin Code(s): E78.5 - HYPERLIPIDEMIA, UNSPECIFIED Qualifiers: Hyperlipidemia type: unspecified Qualified Code(s): E78.5 - Hyperlipidemia , unspecified (6) HTN (hypertension) Assessment/Plan: -Losartan, Metoprolol -low Na diet Code(s): I10 - ESSENTIAL (PRIMARY) HYPERTENSION Qualifiers: Hypertension type: unspecified Qualified Code(s): I10 - Essential (primary ) hypertension (7) Anemia Assessment/Plan: -Hg 10.5 -monitor Hg daily -transfuse for Hg <7.0 Code(s): D64.9 - ANEMIA, UNSPECIFIED Assessment/Plan see problem list dvt ppx
[2019-03-03] MEDS ORDERED: ATORVASTATIN CA 40 MG TABLET (FP) PO SCH (10:00)
[2019-03-03] MEDS: ASPIRIN 81 MG CHEWABLE TABLETS PO SCH (10:45)
[2019-03-03] MEDS: metoPROLOL SUCCINATE 25 MG TAB.SR.24H (FP) PO SCH (10:46)
[2019-03-03] MEDS: MULTIVITAMINS (DAILY MVI) TABLET (FP) PO SCH (10:46)
[2019-03-03] MEDS: LOSARTAN POTASSIUM 25 MG TABLET PO SCH (10:46)
[2019-03-03] MEDS: PYRIDOXINE HCL (B-6) 50 MG TABLET (FP) PO SCH (10:46)
[2019-03-03] MEDS: HEPARIN NA (PORCINE) 5,000 UNITS/ML 1ML VIAL SQ SCH ×2 (10:46→22:01)
[2019-03-03] MEDS: azaTHIOprine 50 MG TABLET PO SCH ×2 (10:46→22:49)
--- NOTE | 2019-03-03 11:17 | EKG ---
Test Reason : Blood Pressure : / mmHG Vent. Rate : 089 BPM Atrial Rate : 089 BPM P-R Int : 146 ms QRS Dur : 084 ms QT Int : 368 ms P-R-T Axes : 045 021 022 degrees QTc Int : 447 ms NORMAL SINUS RHYTHM ABNORMAL ECG WHEN COMPARED WITH ECG OF 02-FEB-2019 21:36, PREMATURE ATRIAL COMPLEXES ARE NO LONGER PRESENT Confirmed by SARMAD HONG MD ([id number]) on 03/03/2019 11:16:49 AM Referred By: Confirmed By:SARMAD HONG MD
--- NOTE | 2019-03-03 11:39 | PN ---
Progress Note (short form) - Note Progress Note: ID consult dictated imp/reccd 73 yo man with urostomy, known history of ecoli esbl UTI in the past (recurrent) , recent admission in January after which he was seen by his urologist and had the PCN removed- no fevers has not been feeling well and fell yesterday from his bed, he could not get up- called his friend who called EMS he was confused in the ED now alert no complaints urine culture sent and given ertapenem (no blood cultures sent) ?uti urostomy with prior stent toxic metabolic encephalopathy- improved continue ertapenem f/u cultures isolation history of esbl infection in the past Problem List - Problems (1) UTI (urinary tract infection) Code(s): N39.0 - URINARY TRACT INFECTION, SITE NOT SPECIFIED Qualifiers: Urinary tract infection type: site unspecified Hematuria presence: with hematuria Qualified Code(s): N39.0 - Urinary tract infection, site not specified; R31.9 - Hematuria, unspecified (2) Toxic metabolic encephalopathy Code(s): G92 - TOXIC ENCEPHALOPATHY (3) History of urostomy Code(s): Z98.890 - OTHER SPECIFIED POSTPROCEDURAL STATES (4) History of ESBL E. coli infection Code(s): Z86.19 - PERSONAL HISTORY OF OTHER INFECTIOUS AND PARASITIC DISEASES
[2019-03-03 16:50] VITALS: BMI 30.7
--- NOTE | 2019-03-03 17:03 | CONS ---
INFECTIOUS DISEASE CONSULTATION DATE OF CONSULTATION: DATE OF DICTATION: 03/03/2019 REQUESTING PHYSICIAN: Duncan Appiah MD HISTORY: This is a 73-year-old man with urostomy, known history of E. coli ESBL UTI in the past that has been recurrent. He had a recent admission in January. He left on Bactrim after which he was seen by his urologist in the city. He had had an internalized percutaneous nephrostomy that was removed. He reports no fevers. Reports starting yesterday he was not feeling well. He went to see his psychology teacher who called his primary doctor and sent him over there. He had a urine culture done with Dr. Appiah as an outpatient. He was sent home. After he got home, he had an episode where he fell from his bed. He could not get up. He called his friend who called EMS. He was confused in the ER. He is currently alert, and he has no complaints whatsoever. PAST MEDICAL HISTORY: Notable for hernia repair and urostomy with history of hypertension, hyperlipidemia, colitis, bladder cancer, TIA, inflammatory bowel disease. ALLERGIES: He has no known drug allergies. SOCIAL HISTORY: He lives alone. He quit smoking in 1989. FAMILY HISTORY: Noncontributory. MEDICATIONS: Include B6, multivitamins, Toprol XL, mesalamine, losartan, ferrous sulfate, B12, Os-Hemant, Imuran, Lipitor, Ecotrin, and Tylenol p.r.n. REVIEW OF SYSTEMS: He is currently feeling well. He reports his memory is much improved. PHYSICAL EXAMINATION: Vital Signs: His temperature is 98.3, pulse of 89, blood pressure 124/70, respiratory rate 98% on room air. HEENT: He is normocephalic. His eyes are anicteric. Neck: Supple. Lungs: Clear to auscultation. Heart: Regular rate and rhythm. Abdomen: His urostomy bag has some cloudy urine in it. Extremities: Without edema. White count is 4, hemoglobin is 10.5, platelets are 140. BUN 21, creatinine 1. Liver function tests are normal. Urinalysis is 2+ leukocytes with 580 white cells. In summary, this is a 73-year-old man who got started on antibiotics this morning prior to cultures. Given the lack of fever and normal white count, I doubt there is value to culture at this point. Mental status appears to be improving. I am not sure if this is due to the fluids and antibiotics of what would explain his mental status changes, which appear to be resolved. We will plan to continue him on ertapenem and follow up his cultures. Further recommendations to follow. CARMELITA SHEARER M.D. [id number] MTDD
[2019-03-03] MEDS: ATORVASTATIN CA 40 MG TABLET (FP) PO SCH (22:01)
[2019-03-04] MEDS ORDERED: ERTAPENEM SODIUM 1 GM in SODIUM CHLORIDE 50 ML IVPB SCH (03:00)
[2019-03-04] MEDS: ERTAPENEM SODIUM 1 GM in SODIUM CHLORIDE 50 ML IVPB SCH (03:19)
[2019-03-04 07:31] LABS: HEMATOCRIT 31.6 % (35.4-49); HEMOGLOBIN 10.4 GM/dL (11.7-16.9); MCH 30.7 pg (25.7-33.7); MEAN CELL VOLUME 93.1 fl (80-96); MEAN PLT VOLUME 9.2 fl (7.5-11.1); PLATELET COUNT 137 K/MM3 (134-434); RBC 3.39 M/mm3 (4.00-5.60); RDW 16.4 % (11.9-15.9); WHITE BLOOD COUNT 3.4 K/mm3 (4.0-10.0)
[2019-03-04 07:54] LABS: ALBUMIN 3.1 g/dl (3.4-5.0); BILIRUBIN,TOTAL 0.6 mg/dL (0.2-1); BLOOD UREA NITROGEN 22.5 mg/dL (7-18); CALCIUM 8.9 mg/dL (8.5-10.1); CREATININE 1.1 mg/dL (0.55-1.3); TOT PROT 6.6 g/dl (6.4-8.2)
[2019-03-04] MEDS ORDERED: PT OWN MED DRAWER 7, Y5N ONE (09:28)
[2019-03-04] MEDS: LOSARTAN POTASSIUM 25 MG TABLET PO SCH (09:38)
[2019-03-04] MEDS: HEPARIN NA (PORCINE) 5,000 UNITS/ML 1ML VIAL SQ SCH ×2 (09:38→22:11)
[2019-03-04] MEDS: ASPIRIN 81 MG CHEWABLE TABLETS PO SCH (09:39)
[2019-03-04] MEDS: metoPROLOL SUCCINATE 25 MG TAB.SR.24H (FP) PO SCH (09:39)
[2019-03-04] MEDS: MULTIVITAMINS (DAILY MVI) TABLET (FP) PO SCH (09:39)
[2019-03-04] MEDS: PYRIDOXINE HCL (B-6) 50 MG TABLET (FP) PO SCH (09:39)
[2019-03-04] MEDS: azaTHIOprine 50 MG TABLET PO SCH (09:39)
--- NOTE | 2019-03-04 11:11 | PN ---
Progress Note, Physician Chief Complaint: AWAKE ALERT NO FEVER TODAY FEELS BETTER - Current Medication List Current Medications: Active Medications Aspirin (Asa -) 81 mg PO DAILY [facility] Last Admin: 03/04/19 09:39 Dose: 81 mg Atorvastatin Calcium (Lipitor -) 40 mg PO HS [facility] Last Admin: 03/03/19 22:01 Dose: 40 mg Azathioprine (Imuran -) 50 mg PO BID [facility] Last Admin: 03/04/19 09:39 Dose: 50 mg Heparin Sodium (Porcine) (Heparin -) 5,000 unit SQ BID [facility] Last Admin: 03/04/19 09:38 Dose: 5,000 unit Ertapenem 1 gm/ Sodium (Chloride) 50 mls @ 100 mls/hr IVPB DAILY [facility] Last Admin: 03/04/19 03:19 Dose: 100 mls/hr Losartan Potassium (Cozaar -) 25 mg PO DAILY [facility] Last Admin: 03/04/19 09:38 Dose: 25 mg Metoprolol Succinate (Toprol Xl -) 25 mg PO DAILY [facility] Last Admin: 03/04/19 09:39 Dose: 25 mg Multivitamins/Minerals/Vitamin C (Tab-A-Vit -) 1 tab PO DAILY [facility] Last Admin: 03/04/19 09:39 Dose: 1 tab Non-Formulary Medication (Mesalamine [Mesalamine]) 1.2 gm PO BID [facility] Pyridoxine HCl (Vitamin B6 -) 50 mg PO DAILY [facility] Last Admin: 03/04/19 09:39 Dose: 50 mg - Objective Vital Signs: Vital Signs Temperature 97.9 F 03/04/19 09:30 Pulse Rate 70 03/04/19 09:30 Respiratory Rate 20 03/04/19 09:30 Blood Pressure 136/71 03/04/19 09:30 O2 Sat by Pulse Oximetry (%) 98 03/03/19 13:45 Constitutional: Yes: No Distress Eyes: Yes: WNL HENT: Yes: WNL Neck: Yes: WNL Cardiovascular: Yes: Regular Rate and Rhythm Respiratory: Yes: WNL Gastrointestinal: Yes: Soft (IIEALCONDUIT) Musculoskeletal: Yes: WNL Extremities: Yes: WNL Edema: No Integumentary: Yes: WNL Wound/Incision: Yes: Other Neurological: Yes: Pre-Existing Deficit ...Motor Strength: LLE, RLE Labs: CBC, BMP 03/04/19 06:45 03/04/19 06:45 Problem List - Problems (1) Change in mental status Code(s): R41.82 - ALTERED MENTAL STATUS, UNSPECIFIED Qualifiers: Altered mental status type: transient alteration of awareness Qualified Code(s): R40.4 - Transient alteration of awareness (2) Complicated UTI (urinary tract infection) Code(s): N39.0 - URINARY TRACT INFECTION, SITE NOT SPECIFIED (3) History of ESBL Klebsiella pneumoniae infection Code(s): Z86.19 - PERSONAL HISTORY OF OTHER INFECTIOUS AND PARASITIC DISEASES (4) History of urostomy Code(s): Z98.890 - OTHER SPECIFIED POSTPROCEDURAL STATES (5) Toxic metabolic encephalopathy Code(s): G92 - TOXIC ENCEPHALOPATHY (6) Weakness Code(s): R53.1 - WEAKNESS (7) Anemia Code(s): D64.9 - ANEMIA, UNSPECIFIED Assessment/Plan IV ABX AWAIT CULTURES WOUND CARE CHECK LABS
[2019-03-04] MEDS: MESALAMINE 800 MG TABLET.DR PO SCH ×4 (11:59→22:11)
[2019-03-04] MEDS: ATORVASTATIN CA 40 MG TABLET (FP) PO SCH (22:11)
[2019-03-05] MEDS ORDERED: PT OWN MED DRAWER 7, Y5N ONE (03:53)
[2019-03-05] MEDS: MESALAMINE 800 MG TABLET.DR PO SCH ×3 (06:30→21:29)
[2019-03-05] MEDS: ERTAPENEM SODIUM 1 GM in SODIUM CHLORIDE 50 ML IVPB SCH (09:40)
[2019-03-05] MEDS: PYRIDOXINE HCL (B-6) 50 MG TABLET (FP) PO SCH (09:41)
[2019-03-05] MEDS: HEPARIN NA (PORCINE) 5,000 UNITS/ML 1ML VIAL SQ SCH ×2 (09:41→21:29)
[2019-03-05] MEDS: metoPROLOL SUCCINATE 25 MG TAB.SR.24H (FP) PO SCH (09:41)
[2019-03-05] MEDS: ASPIRIN 81 MG CHEWABLE TABLETS PO SCH (09:41)
[2019-03-05] MEDS: LOSARTAN POTASSIUM 25 MG TABLET PO SCH (09:41)
[2019-03-05] MEDS: MULTIVITAMINS (DAILY MVI) TABLET (FP) PO SCH (09:41)
--- NOTE | 2019-03-05 15:22 | PN ---
Progress Note (short form) - Note Progress Note: clinically improved drain from urostomy removed as outpt after discharge from [facility] Vital Signs Period Temp Pulse Resp BP Sys/Anderson Pulse Ox Last 24 Hr 97.5 F-98.8 F 63-69 0-18 112-132/58-79 99 cor-rrr lungs clear urostomy with clear urine ext no edema CBC, BMP 03/04/19 06:45 03/04/19 06:45 Microbiology 03/02/19 23:39 Urine - Urostomy Bag Urine Culture - Preliminary Escherichia Coli Esbl [employer] Group D Strep Or Entero Coccus a/p uti toxic metabolic encephalopathy- resolved continue ertapenem f/u cultures history of right hydronephrosis- willl repeat renal sonogram
--- NOTE | 2019-03-05 15:41 | PN ---
Progress Note, Physician Chief Complaint: Complicated UTI Fall TOxic Metabolic Encephalopathy History of Present Illness: Previous notes and events reviewed awake and alert NAD patient states feeling good denies chest pain or SOB renal US results pending - Current Medication List Current Medications: Active Medications Aspirin (Asa -) 81 mg PO DAILY [facility] Last Admin: 03/05/19 09:41 Dose: 81 mg Atorvastatin Calcium (Lipitor -) 40 mg PO HS [facility] Last Admin: 03/04/19 22:11 Dose: 40 mg Heparin Sodium (Porcine) (Heparin -) 5,000 unit SQ BID [facility] Last Admin: 03/05/19 09:41 Dose: 5,000 unit Ertapenem 1 gm/ Sodium (Chloride) 50 mls @ 100 mls/hr IVPB DAILY [facility] Last Admin: 03/05/19 09:40 Dose: 100 mls/hr Losartan Potassium (Cozaar -) 25 mg PO DAILY [facility] Last Admin: 03/05/19 09:41 Dose: 25 mg Mesalamine (Asacol Hd -) 800 mg PO TID [facility] Last Admin: 03/05/19 13:25 Dose: 800 mg Metoprolol Succinate (Toprol Xl -) 25 mg PO DAILY [facility] Last Admin: 03/05/19 09:41 Dose: 25 mg Multivitamins/Minerals/Vitamin C (Tab-A-Vit -) 1 tab PO DAILY [facility] Last Admin: 03/05/19 09:41 Dose: 1 tab Pyridoxine HCl (Vitamin B6 -) 50 mg PO DAILY [facility] Last Admin: 03/05/19 09:41 Dose: 50 mg - Objective Vital Signs: Vital Signs Temperature 97.6 F 03/05/19 15:16 Pulse Rate 69 03/05/19 15:16 Respiratory Rate 18 03/05/19 15:16 Blood Pressure 132/79 03/05/19 15:16 O2 Sat by Pulse Oximetry (%) 99 03/04/19 21:00 Constitutional: Yes: No Distress, Calm Eyes: Yes: Conjunctiva Clear HENT: Yes: Atraumatic Cardiovascular: Yes: Regular Rate and Rhythm Respiratory: Yes: Regular, CTA Bilaterally Gastrointestinal: Yes: Normal Bowel Sounds, Soft Genitourinary: Yes: Other (urostomy) Musculoskeletal: Yes: WNL Extremities: Yes: WNL Edema: No Neurological: Yes: Alert, Oriented Psychiatric: Yes: Alert, Oriented Labs: CBC, BMP 03/04/19 06:45 03/04/19 06:45 Microbiology 03/02/19 23:39 Urine - Urostomy Bag Urine Culture - Preliminary Escherichia Coli Esbl [employer] D Strep Or Entero Coccus Problem List - Problems (1) Complicated UTI (urinary tract infection) Assessment/Plan: -ID consult -Ertapenem -no leukocytosis -afebrile -UA shows 2+ leukocyte esterase, positive nitrite -UC positive ESBL -renal US results pending Code(s): N39.0 - URINARY TRACT INFECTION, SITE NOT SPECIFIED (2) History of ESBL Klebsiella pneumoniae infection Assessment/Plan: -contact precaution -ID on board Code(s): Z86.19 - PERSONAL HISTORY OF OTHER INFECTIOUS AND PARASITIC DISEASES (3) Toxic metabolic encephalopathy Assessment/Plan: -resolved -possibly 2/2 to UTI -Head CT scan shows no evidence of acute intracranial hemorrhage, edema, midline shift, mass effect, skull fracture, supratentorial chronic white matter microangiopathic ischemic changes, chronic ischemic changes left thalamus, left coronal radiatal/left frontal lobe subcortical white matter -neuro checks -fall precautions Code(s): G92 - TOXIC ENCEPHALOPATHY (4) Diabetes mellitus, insulin dependent (IDDM), uncontrolled Assessment/Plan: -BGM ACHS -diabetic diet Code(s): E10.65 - TYPE 1 DIABETES MELLITUS WITH HYPERGLYCEMIA (5) HLD (hyperlipidemia) Assessment/Plan: -Atorvastatin Code(s): E78.5 - HYPERLIPIDEMIA, UNSPECIFIED Qualifiers: Hyperlipidemia type: unspecified Qualified Code(s): E78.5 - Hyperlipidemia , unspecified (6) HTN (hypertension) Assessment/Plan: -Losartan, Metoprolol -low Na diet Code(s): I10 - ESSENTIAL (PRIMARY) HYPERTENSION Qualifiers: Hypertension type: unspecified Qualified Code(s): I10 - Essential (primary ) hypertension (7) Anemia Assessment/Plan: -Hg 10.4 -monitor Hg daily -transfuse for Hg <7.0 Code(s): D64.9 - ANEMIA, UNSPECIFIED Assessment/Plan see problem list dvt ppx
[2019-03-05] MEDS: ATORVASTATIN CA 40 MG TABLET (FP) PO SCH (21:29)
[2019-03-06] MEDS: MESALAMINE 800 MG TABLET.DR PO SCH ×3 (05:55→21:29)
[2019-03-06 07:57] LABS: HEMATOCRIT 32.1 % (35.4-49); HEMOGLOBIN 10.7 GM/dL (11.7-16.9); MCH 30.5 pg (25.7-33.7); MCHC 33.4 g/dl (32.0-35.9); MEAN CELL VOLUME 91.2 fl (80-96); MEAN PLT VOLUME 8.9 fl (7.5-11.1); PLATELET COUNT 133 K/MM3 (134-434); RBC 3.51 M/mm3 (4.00-5.60); RDW 16.2 % (11.9-15.9); WHITE BLOOD COUNT 2.8 K/mm3 (4.0-10.0)
[2019-03-06 08:19] LABS: ALBUMIN 3.3 g/dl (3.4-5.0); BILIRUBIN,TOTAL 0.6 mg/dL (0.2-1); BLOOD UREA NITROGEN 22.3 mg/dL (7-18); CALCIUM 9.1 mg/dL (8.5-10.1); POTASSIUM 4.1 mmol/L (3.5-5.1); TOT PROT 7.1 g/dl (6.4-8.2)
[2019-03-06] MEDS: ERTAPENEM SODIUM 1 GM in SODIUM CHLORIDE 50 ML IVPB SCH (10:55)
[2019-03-06] MEDS: ASPIRIN 81 MG CHEWABLE TABLETS PO SCH (10:57)
[2019-03-06] MEDS: MULTIVITAMINS (DAILY MVI) TABLET (FP) PO SCH (10:57)
[2019-03-06] MEDS: metoPROLOL SUCCINATE 25 MG TAB.SR.24H (FP) PO SCH (10:57)
[2019-03-06] MEDS: LOSARTAN POTASSIUM 25 MG TABLET PO SCH (10:57)
[2019-03-06] MEDS: PYRIDOXINE HCL (B-6) 50 MG TABLET (FP) PO SCH (10:57)
[2019-03-06] MEDS: HEPARIN NA (PORCINE) 5,000 UNITS/ML 1ML VIAL SQ SCH ×2 (10:57→21:29)
--- NOTE | 2019-03-06 11:23 | PN ---
Progress Note, Physician Chief Complaint: AWAKE ALERT NO FEVERS NO ACUTE EVENTS OVERNIGHT - Current Medication List Current Medications: Active Medications Aspirin (Asa -) 81 mg PO DAILY [facility] Last Admin: 03/06/19 10:57 Dose: 81 mg Atorvastatin Calcium (Lipitor -) 40 mg PO HS [facility] Last Admin: 03/05/19 21:29 Dose: 40 mg Heparin Sodium (Porcine) (Heparin -) 5,000 unit SQ BID [facility] Last Admin: 03/06/19 10:57 Dose: 5,000 unit Ertapenem 1 gm/ Sodium (Chloride) 50 mls @ 100 mls/hr IVPB DAILY [facility] Last Admin: 03/06/19 10:55 Dose: 100 mls/hr Losartan Potassium (Cozaar -) 25 mg PO DAILY [facility] Last Admin: 03/06/19 10:57 Dose: 25 mg Mesalamine (Asacol Hd -) 800 mg PO TID [facility] Last Admin: 03/06/19 05:55 Dose: 800 mg Metoprolol Succinate (Toprol Xl -) 25 mg PO DAILY [facility] Last Admin: 03/06/19 10:57 Dose: 25 mg Multivitamins/Minerals/Vitamin C (Tab-A-Vit -) 1 tab PO DAILY [facility] Last Admin: 03/06/19 10:57 Dose: 1 tab Pyridoxine HCl (Vitamin B6 -) 50 mg PO DAILY [facility] Last Admin: 03/06/19 10:57 Dose: 50 mg - Objective Vital Signs: Vital Signs Temperature 97.8 F 03/06/19 05:59 Pulse Rate 61 03/06/19 05:59 Respiratory Rate 18 03/06/19 05:59 Blood Pressure 110/63 03/06/19 05:59 O2 Sat by Pulse Oximetry (%) 98 03/05/19 21:00 Constitutional: Yes: No Distress Cardiovascular: Yes: Regular Rate and Rhythm Respiratory: Yes: WNL Gastrointestinal: Yes: Soft Genitourinary: Yes: Other Musculoskeletal: Yes: Muscle Weakness Extremities: Yes: Other Edema: No Integumentary: Yes: WNL Wound/Incision: Yes: Clean/Dry Neurological: Yes: Unsteady Gait ...Motor Strength: LLE, RLE Psychiatric: Yes: WNL Labs: CBC, BMP 03/06/19 06:10 03/06/19 06:10 Problem List - Problems (1) Change in mental status Code(s): R41.82 - ALTERED MENTAL STATUS, UNSPECIFIED Qualifiers: Altered mental status type: transient alteration of awareness Qualified Code(s): R40.4 - Transient alteration of awareness (2) Complicated UTI (urinary tract infection) Code(s): N39.0 - URINARY TRACT INFECTION, SITE NOT SPECIFIED (3) History of ESBL Klebsiella pneumoniae infection Code(s): Z86.19 - PERSONAL HISTORY OF OTHER INFECTIOUS AND PARASITIC DISEASES (4) History of urostomy Code(s): Z98.890 - OTHER SPECIFIED POSTPROCEDURAL STATES (5) Toxic metabolic encephalopathy Code(s): G92 - TOXIC ENCEPHALOPATHY (6) Weakness Code(s): R53.1 - WEAKNESS (7) Anemia Code(s): D64.9 - ANEMIA, UNSPECIFIED Assessment/Plan IV ABX CONTINUED AWAIT CULTURES WOUND CARE CONTINUED CHECK LABS OOB TO CHAIR
--- NOTE | 2019-03-06 12:06 | PN ---
Progress Note (short form) - Note Progress Note: clinically improved drain from urostomy removed as outpt after discharge from [facility] no complaints Vital Signs Period Temp Pulse Resp BP Sys/Anderson Pulse Ox Last 24 Hr 97.6 F-98.7 F 61-69 17-18 110-135/63-79 98 cor-rrr lungs clear abd soft,+urostomy ext no edema CBC, BMP 03/06/19 06:10 03/06/19 06:10 Microbiology 03/02/19 23:39 Urine - Urostomy Bag Urine Culture - Preliminary Escherichia Coli Esbl Neonatal Pediatric Nurse Group D Strep Or Entero Coccus a/p uti toxic metabolic encephalopathy- resolved continue ertapenem day #4 reanl sono with mild hydro await final cultures hopefully home on Friday on macrobid for 7 days with urology f/u d/w dr sears
[2019-03-06] MEDS: ATORVASTATIN CA 40 MG TABLET (FP) PO SCH (21:29)
[2019-03-07] MEDS: MESALAMINE 800 MG TABLET.DR PO SCH (05:30)
--- NOTE | 2019-03-07 09:02 | DS ---
Physical Examination Vital Signs: Vital Signs Temperature 97.5 F L 03/07/19 04:00 Pulse Rate 56 L 03/07/19 04:00 Respiratory Rate 20 03/07/19 04:00 Blood Pressure 124/47 L 03/07/19 04:00 O2 Sat by Pulse Oximetry (%) 98 03/05/19 21:00 Findings/Remarks: AWAKE ALERT NO FEVERS DISCHARGING HOME Constitutional: Yes: No Distress Eyes: Yes: WNL HENT: Yes: WNL Neck: Yes: WNL Cardiovascular: Yes: WNL Respiratory: Yes: WNL Gastrointestinal: Yes: Soft, Other (UROSTOMY BAG) Renal/: Yes: Other Edema: No Neurological: Yes: Unsteady Gait Labs: CBC, BMP 03/06/19 06:10 03/06/19 06:10 Discharge Summary Reason For Visit: URINARY TRACT INFECTION, TOXIC METABOLIC Current Active Problems Change in mental status (Acute) Complicated UTI (urinary tract infection) (Acute) History of ESBL Klebsiella pneumoniae infection (Acute) History of urostomy (Acute) Toxic metabolic encephalopathy (Acute) Weakness (Acute) Procedures: Principal: RENAL SONO Hospital Course: ADMITTED FOR UTI, TREATED WITH IVF IV ABX CAN F/U AT [place] FRIDAY 9AM Condition: Good - Instructions Diet, Activity, Other Instructions: MACROBID 100MG TID FOR [address] DONOVAN IN 2 WEEKS Disposition: HOME - Home Medications Comprehensive Discharge Medication List: Ambulatory Orders Cyanocobalamin [Vitamin B12 -] 1,000 mg PO DAILY 03/09/15 Multivitamins [Multivit ([facility] Formulary)] 1 tab PO DAILY 04/19/15 Calcium 250Mg/Vit-D 125 Units [Oscal 250 mg+D -] 2 combo PO DAILY #60 tablet Losartan Potassium [Cozaar -] 25 mg PO DAILY tablet 01/18/18 Metoprolol Succinate [Toprol XL -] 25 mg PO DAILY tab.sr.24h 01/18/18 Atorvastatin Ca [Lipitor] 40 mg PO DAILY 03/23/18 Azathioprine [Imuran -] 50 mg PO BID 03/23/18 Mesalamine 1.2 gm PO BID 03/23/18 Aspirin Coated [Ecotrin -] 325 mg PO BID 03/24/18 Acetaminophen [Tylenol .Regular Strength -] 650 mg PO Q6H PRN tablet 03/31/18 Albuterol 0.083% Nebulizer Richelle [Ventolin 0.083% Nebulizer Soln -] 1 amp NEB Q6H PRN amp 03/31/18 Sulfamethoxazole/Trimethoprim [Bactrim DS -] 1 tab PO BID #6 tablet 02/08/19 Ferrous Sulfate [Feosol] 325 mg PO DAILY 03/02/19 Pyridoxine HCl (B-6) [Vitamin B6 -] 50 mg PO DAILY 03/02/19 Nitrofurantoin Monohyd/M-Cryst [Macrobid -] 100 mg PO TID #90 capsule 03/07/19
[2019-03-07] MEDS: LOSARTAN POTASSIUM 25 MG TABLET PO SCH (09:56)
[2019-03-07] MEDS: metoPROLOL SUCCINATE 25 MG TAB.SR.24H (FP) PO SCH (09:56)
[2019-03-07] MEDS: MULTIVITAMINS (DAILY MVI) TABLET (FP) PO SCH (09:56)
[2019-03-07] MEDS: ASPIRIN 81 MG CHEWABLE TABLETS PO SCH (09:56)
[2019-03-07] MEDS: HEPARIN NA (PORCINE) 5,000 UNITS/ML 1ML VIAL SQ SCH (09:57)
[2019-03-07] MEDS: PYRIDOXINE HCL (B-6) 50 MG TABLET (FP) PO SCH (09:57)
[2019-03-07] MEDS: ERTAPENEM SODIUM 1 GM in SODIUM CHLORIDE 50 ML IVPB SCH (09:59)
[2019-03-07 13:07] VITALS: BP 128/76; PULSE 76; TEMP 97.4
== END 2019-03-07 14:40 | disposition home or self-care (01) | DRG 698 ==
LOC: JER 20:27 → JERBED 03-03 01:40 → J7W 03-03 14:15
PROVIDERS: ADMIT Family Medicine; ATTEND Family Medicine
DX: T83.598A Infection and inflammatory reaction due to other prosthetic device, implant and graft in urinary system, initial encounter (principal); G93.41 Metabolic encephalopathy; N39.0 Urinary tract infection, site not specified; I10 Essential (primary) hypertension; E78.5 Hyperlipidemia, unspecified; D64.9 Anemia, unspecified; K58.9 Irritable bowel syndrome, unspecified; N40.0 Benign prostatic hyperplasia without lower urinary tract symptoms; E11.65 Type 2 diabetes mellitus with hyperglycemia; R41.82 Altered mental status, unspecified; R53.1 Weakness; Z86.73 Personal history of transient ischemic attack (TIA), and cerebral infarction without residual deficits; Z16.12 Extended spectrum beta lactamase (ESBL) resistance; Z85.51 Personal history of malignant neoplasm of bladder; Z86.19 Personal history of other infectious and parasitic diseases; Z93.6 Other artificial openings of urinary tract status
CPT/HCPCS: 36415; 70450-TC; 71045-TC-FY; 72125-TC; 76775-TC; 80048; 80053; 81003; 82550; 83735; 84100; 84484; 85025; 85027; 87086; 87186; 93005; 93010; 97116-GP; 97161-GP; 99285-25; J1644

== ENCOUNTER 2020-01-01 19:25 | Emergency (ER) | payer OTHER, MEDICARE ==
[2020-01-01 19:36] VITALS: BP 136/87; PULSE 86; TEMP 98.7; BMI 29.5
[2020-01-01] MEDS ORDERED: oxyCODONE HCL 5 MG TABLET PO ONE (20:47)
--- NOTE | 2020-01-01 20:47 | PDOC ---
History of Present Illness - General Chief Complaint: Pain Stated Complaint: CHEST PAIN Time Seen by Provider: 01/01/20 20:14 History Source: Patient Exam Limitations: No Limitations - History of Present Illness Initial Comments: 01/01/20 20:19 PCP: Dr. Appiah Cards: Dr. Morgan HPI: 74yo M PMH of HTN, HLD, colitis, bladder CA s/p radiation with urostomy, TIA, ESBL+ UTI, presenting with left chest wall pain s/p mechanical fall on Friday. 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 Denies preceding li ghtheadedness, chest pain, SOB, vision changes. Fell to the ground striking the left side of his lower chest on the ground. Was helped up by a passerby and refused to go to the hospital saying he felt the pain was manageable. Has been taking 1g Tylenol q6 hours at home as needed for pain, but pain was poorly controlled and worse with breathing and movement so he decided to present to the ED. He, his METER/RELAY TECHNICIAN, and EMS all noted tenderness but no brusing. Of note, patient has been tested for COVID19 3 times, all have been negative, he denies SOB, fevers, chills, nausea, vomiting, cough, sore throat, abdominal pain. All: KNDA Meds: Per chart PMH: As above PSH: Urostomy Past History - Travel History Traveled outside of the country in the last 30 days: No Close contact w/someone who was outside of country & ill: No - Medical History Allergies/Adverse Reactions: Allergies Allergy/AdvReac Type Severity Reaction Status Date / Time No Known Allergies Allergy Verified 01/01/20 19:35 Home Medications: Ambulatory Orders Cyanocobalamin [Vitamin B12 -] 1,000 mg PO DAILY 03/09/15 Multivitamins [Multivit ([facility] Formul[facility])] 1 tab PO DAILY 04/19/15 Calcium 250Mg/Vit-D 125 Units [Oscal 250 mg+D -] 2 combo PO DAILY #60 tablet 05/10/15 Losartan Potassium [Cozaar -] 25 mg PO DAILY tablet 01/18/18 Metoprolol Succinate [Toprol XL -] 25 mg PO DAILY tab.sr.24h 01/18/18 Atorvastatin Ca [Lipitor] 40 mg PO DAILY 03/23/18 Azathioprine [Imuran -] 50 mg PO BID 03/23/18 Mesalamine 1.2 gm PO BID 03/23/18 Aspirin Coated [Ecotrin -] 325 mg PO BID 03/24/18 Albuterol 0.083% Nebulizer Richelle [Ventolin 0.083% Nebulizer Soln -] 1 amp NEB Q6H PRN amp 03/31/18 Ferrous Sulfate [Feosol] 325 mg PO DAILY 03/02/19 Pyridoxine HCl (B-6) [Vitamin B6 -] 50 mg PO DAILY 03/02/19 Acetaminophen 1 - 2 mg PO Q6H PRN #240 tablet 12/02/19 Sulfamethoxazole/Trimethoprim [Bactrim Ds -] 1 tab PO BID #14 tablet 12/02/19 Oxycodone HCl 5 mg PO TID PRN #15 capsule MDD 3 capsules 01/01/20 Anemia: No Asthma: No Cancer: Yes (PROSTATE with rad ,UROSTOMY) Cardiac Disorders: No CVA: No COPD: No CHF: No DVT: No Dementia: No Diabetes: Yes (hx borderline) GI Disorders: Yes (COLITIS) Disorders: No HTN: Yes Hypercholesterolemia: Yes Liver Disease: No Seizures: No Thyroid Disease: No - Surgical History Abdominal Surgery: Yes (HERNIA,UROSTOMY) Appendectomy: No Cardiac Surgery: No Cholecystectomy: No GI Surgery: Yes Lung Surgery: No Neurologic Surgery: No Orthopedic Surgery: No - Immunization History Td Vaccination: Yes TDAP Vaccination: Yes Immunization Up to Date: Yes - Psycho-Social/Smoking History Smoking History: Never smoked Have you smoked in the past 12 months: No Number of Cigarettes Smoked Daily: 10 If you are a former smoker, when did you quit?: 1989 Information on smoking cessation initiated: No 'Breaking Loose' booklet given: 05/02/17 - Substance Abuse Hx (Audit-C & DAST Scrn) How often the patient has a drink containing alcohol: Never Score: In Men: 4 or > Positive; In Women: 3 or > Positive: 0 Screen Result (Pos requires Nsg. Audit-10AR): Negative In the last yr the pt used illegal drug/Rx for NonMed reason: No Score: Yes response is considered Positive: 0 Screen Result (Positive result requires Nsg. DAST-10): Negative Review of Systems - Review of Systems Able to Perform ROS?: Yes Is the patient limited Italian proficient: Yes Constitutional: No: Chills, Diaphoresis, Fever, Weakness HEENTM: No: Nose Pain, Nose Congestion, Throat Pain Respiratory: No: Cough, Orthopnea, Shortness of Breath, SOB with Exertion, SOB at Rest, Wheezing Cardiac (ROS): Yes: Chest Pain (left lower lateral chest wall). No: Edema, Irregular Heart Rate, Lightheadedness, Palpitations, Syncope, Chest Tightness ABD/GI: No: Constipated, Diarrhea, Nausea, Vomiting : No: Burning, Dysuria, Frequency Musculoskeletal: Yes: See HPI, Muscle Pain. No: Muscle Weakness, Neck Pain Integumentary: No: Bruising, Dryness, Erythema, Rash Neurological: No: Headache, Numbness, Tingling, Weakness Psychiatric: No: Stressors, Change in Appetite Endocrine: No: Increased Thirst, Increased Urine Hematologic/Lymphatic: No: Anemia, Blood Clots, Easy Bleeding All Other Systems: Reviewed and Negative *Physical Exam - Vital Signs Last Vital Signs Temp Pulse Resp BP Pulse Ox 98.7 F 86 20 136/87 100 01/01/20 19:34 01/01/20 19:34 01/01/20 19:34 01/01/20 19:34 01/01/20 19:34 - Physical Exam 01/01/20 20:19 Vitals reviewed, AFHDS 01/01/20 20:35 GEN: Well appearing, elderly gentleman, NAD, comfortable when not breathing deeply. AAOx3. HEENT: NCAT, EOMI, PERRL. Sclera anicteric, non-injected. No facial asymmetry. Moist mucous membranes. Normal voice. Trachea midline. CV: RRR, S1/S2, no murmurs / rubs / gallops appreciated. LUNG: CTABL, normal work of breathing - splinting 2/2 pain with deep breathing. No wheezes, rales, rhonchi. No cough. Speaking full sentences. Left chest wall TTP, no overlying bruises, non-tender adjacent abdomen, no bony step-offs appreciated. GI: Soft, NTND, no guarding, no rebound. No masses. EXTREMITIES: 2+ distal pulses. No clubbing / cyanosis / edema. No gross deformity in any extremity. +Small dried excoriation on left knee, normal ROM, non-TTP. SKIN: Warm, dry, no rashes appreciated, non-jaundiced. PSYCH: Normal mood and affect. Cooperative and appropriate. NEURO: CN grossly intact. Moving all extremities well. Normal strength and sensation grossly. Medical Decision Making - Medical Decision Making 01/01/20 20:49 74yo M s/p mechanical fall presenting with left chest wall pain since injury on Friday. History notable for witnessed mechanical fall without LOC or head trauma, pain minimally controlled with Tylenol at home. Exam notable for absence of bruising, +diffuse left lateral low chest well tenderness to palpation, splinting with deep breaths, O2 Sat ranging 93-95% on room air without signs / symptoms of COVID, no hx of lung disease other than childhood asthma. DDX: Fracture most likely vs msk pain vs PNA / atelectasis, also considered PE, unlikely in absence of tachycardia / tachypnea / DVT or PE risk factors. Given location of pain / tenderness, little concern for cardiac contusion. - 5mg Oxycodone - [facility], Chest CT 01/01/20 23:13 - [facility] unremarkable - Chest CT with rib fractures x2 - Patient pain controlled well with oxycodone Dispo: Home Tylenol and Motrin for pain Oxycodone for breakthrough pain ISS hourly to promote lung recruitment 01/01/20 23:31 CT with pulmonary nodule - report included in discharge packed. Discussed with patient, plan for outpatient follow-up. Dispo: Home Discharge - Discharge Information Problems reviewed: Yes Clinical Impression/Diagnosis: Chest wall pain Condition: Stable Disposition: HOME - Admission No - Additional Discharge Information Prescriptions: Oxycodone HCl 5 mg PO TID PRN #15 capsule MDD 3 capsules PRN Reason: Pain - Follow up/Referral Referrals: Duncan Appiah MD [Staff Physician] - - Patient Discharge Instructions Patient Printed Discharge Instructions: DI for Rib Fracture, DI for Prescription Opioid Use Additional Instructions: You were seen and evaluated for left chest pain after a fall. You were found to have two broken ribs. Your chest CT also demonstrated a nodule that will require further evaluation and imaging with your primary care doctor. Continue taking Motrin and Tylenol as directed on the package label for your pa in. A prescription for oxycodone has been sent to your pharmacy, take this if your pain continues despite Motrin and Tylenol. A prescription has also been sent to your pharmacy for a breathing machine to help keep your lungs open while your ribs heal. Follow up with Dr. Appiah within the next 48 hours. Call his office to discuss [id number] and your home health aid questions. Please show him a copy of your imaging report and discuss your pulmonary nodule at your next visit. Return to the ED for any new or concerning symptoms including but not limited to: development of cough, fevers, chills, or difficulty breathing. - Post Discharge Activity
[2020-01-01] MEDS ORDERED: oxyCODONE HCL 5 MG TABLET ONE (20:51)
--- NOTE | 2020-01-01 21:36 | PDOC ---
Documentation entered by Sandy Omalley SCRIBE, acting as scribe for Eamon Kennedy MD. Eamon Kennedy MD: This documentation has been prepared by the Lyssa torres Sydney, SCRIBE, under my direction and personally reviewed by me in its entirety. I confirm that the documentation accurately reflects all work, treatment, procedures, and medical decision making performed by me. Attending Attestation - Resident Resident Name: WillieDemetrius moreira - ED Attending Attestation I have performed the following: I have examined & evaluated the patient, The case was reviewed & discussed with the resident, I agree w/resident's findings & plan, Exceptions are as noted - HPI HPI: 01/01/20 21:22 Patient is a 74 year old male with a significant past medical history of HTN, HLD, colitis who presents to the ED with left chest wall pain s/p mechanical fall on Friday. As per patient, he was walking when he lost his footing and fell onto his left side. Patient refused to go to the hospital at the time. Now reports L chest wall pain that has not improved. Patient states he has been taking Tylenol at home with some relief to his symptoms, but endorses his pain is worsened with movement and breathing, prompting his arrival to the ED. Allergies: NKDA - Physicial Exam PE: 01/01/20 21:42 See resident exam - Medical Decision Making 01/01/20 21:42 74 M with mechanical fall 3 days ago. Now complaining of L chest wall pain. - CT head, chest - Pain control 01/01/20 23:30 CT shows 2 rib fxs, + lung contusion vs atelectasis Pt with normal O2 sat Pain well controlled with oxycodone, no difficulty taking deep breaths Will DC with pain control and incentive spirometer. F/u PMD Pt is well appearing, with normal vitals. Clinically stable for DC at this time. I discussed the physical exam findings, ancillary test results and final diagnoses with the patient. I answered all of the patient's questions. The patient was satisfied with the care received and felt comfortable with the discharge plan and treatment plan. The patient agrees to follow up with the primary care physician within 24-72 hours. Please note this patient was evaluated during the COVID-19 crisis with the presidential [place] Act Declaration and the [place] governor executive order number 202. He/she was evaluated and clinical decisions were made relative to healthcare system resources as well as clinical picture during a pandemic crisis situation. Discharge - Discharge Information Problems reviewed: Yes Clinical Impression/Diagnosis: Chest wall pain, Fall, Rib fractures Condition: Stable Disposition: HOME - Additional Discharge Information Prescriptions: Spirometers and Accessories [Mistassist] 1 each MC Q1H #1 each Oxycodone HCl 5 mg PO TID PRN #15 capsule MDD 3 capsules PRN Reason: Pain - Follow up/Referral Referrals: Duncan Appiah MD [Staff Physician] - - Patient Discharge Instructions Patient Printed Discharge Instructions: DI for Rib Fracture, DI for Prescription Opioid Use Additional Instructions: You were seen and evaluated for left chest pain after a fall. You were found to have two broken ribs. Your chest CT also demonstrated a nodule that will require further evaluation and imaging with your primary care doctor. Continue taking Motrin and Tylenol as directed on the package label for your pain. A prescription for oxycodone has been sent to your pharmacy, take this if your pain continues despite Motrin and Tylenol. A prescription has also been sent to your pharmacy for a breathing machine to help keep your lungs open while your ribs heal. Follow up with Dr. Appiah within the next 48 hours. Call his office to discuss [id number] and your home health aid questions. Please show him a copy of your imaging report and discuss your pulmonary nodule at your next visit. Return to the ED for any new or concerning symptoms including but not limited to: development of cough, fevers, chills, or difficulty breathing. - Post Discharge Activity
== END 2020-01-02 01:37 | disposition home or self-care (01) ==
LOC: JER 19:25
DX: R07.89 Other chest pain (principal)
CPT/HCPCS: 70450-TC; 71250-TC; 99285-25

== ENCOUNTER 2020-09-18 04:50 | Day surgery (SDC) | payer OTHER, MEDICARE ==
[2020-09-14 13:49] VITALS: BMI 29.5
[2020-09-18 15:09] VITALS: TEMP 97.8
[2020-09-18 16:10] VITALS: BP 131/78; PULSE 82
== END 2020-09-18 15:45 | disposition home or self-care (01) ==
LOC: JRADIR 04:50
PROVIDERS: ATTEND Urology
PROC: 0TP93DZ Removal of Intraluminal Device from Ureter, Percutaneous Approach (ICD-10-PCS; principal; 2020-09-18)
PROC: 0T763DZ Dilation of Right Ureter with Intraluminal Device, Percutaneous Approach (ICD-10-PCS; 2020-09-18)
PROC: BT16YZZ Fluoroscopy of Right Ureter using Other Contrast (ICD-10-PCS; 2020-09-18)
DX: N13.8 Other obstructive and reflux uropathy (principal); Z85.51 Personal history of malignant neoplasm of bladder
CPT/HCPCS: 50382; C1729; C1769

== ENCOUNTER 2020-11-15 22:35 | Emergency (ER) | payer OTHER, MEDICARE ==
[2020-11-15 22:59] VITALS: BP 131/69; PULSE 61; TEMP 99; BMI 29.5
[2020-11-16 00:48] LABS: BASO % 0.3 % (0-2.0); EOS % 2.6 % (0-4.5); HEMATOCRIT 34.5 % (35.4-49); HEMOGLOBIN 11.5 GM/dL (11.7-16.9); LYMPH % 29.5 % (8-40); MCH 30.6 pg (25.7-33.7); MCHC 33.3 g/dl (32.0-35.9); MEAN CELL VOLUME 91.9 fl (80-96); MEAN PLT VOLUME 9.3 fl (7.5-11.1); MONO % 5.9 % (3.8-10.2); NEUT % 61.7 % (42.8-82.8); PLATELET COUNT 121 K/MM3 (134-434); RBC 3.76 M/mm3 (4.00-5.60); RDW 18.4 % (11.9-15.9); WHITE BLOOD COUNT 4.6 K/mm3 (4.0-10.0)
[2020-11-16 00:53] LABS: EPI CELLS 8 /uL (0-25.1); HYALINE CASTS 25 /uL (0-3.1); PH,URINE 5.5 (5.0-8.0); URINE APPEARANCE TURBID; URINE BACTERIA >9,000 /uL (0-1359); URINE BILIRUBIN NEGATIVE (NEGATIVE); URINE COLOR YELLOW; URINE GLUCOSE (UA) NEGATIVE (NEGATIVE); URINE KETONE NEGATIVE (NEGATIVE); URINE LEUK ESTERASE 3+ (NEGATIVE); URINE NITRITE POSITIVE (NEGATIVE); URINE PROTEIN 2+ (NEGATIVE); URINE RBC 6112 /uL (0-23.9); URINE WBC 1359 /uL (0-25.8)
[2020-11-16 00:58] LABS: INR 1.52 (0.83-1.09); PROTHROMBIN TIME (PATIENT) 18.2 SEC (9.7-13.0)
[2020-11-16 01:01] LABS: ACTIVATED PTT 36.2 SECONDS (25.2-36.5)
[2020-11-16 01:10] LABS: ALBUMIN 3.7 g/dl (3.4-5.0); CALCIUM 8.9 mg/dL (8.5-10.1)
[2020-11-16 01:13] LABS: CREATININE 1.1 mg/dL (0.55-1.3)
[2020-11-16 01:15] LABS: BILIRUBIN,TOTAL 0.6 mg/dL (0.2-1); TOT PROT 6.8 g/dl (6.4-8.2)
[2020-11-16] MEDS ORDERED: CEFTRIAXONE 1 GM in DEXTROSE 5%-WATER - 100 ML IVPB ONE (01:39)
[2020-11-16] MEDS ORDERED: CEFTRIAXONE 1 GM/50 ML BAG ONE (01:46)
== END 2020-11-16 04:20 | disposition home or self-care (01) ==
LOC: JER 22:35
DX: N39.0 Urinary tract infection, site not specified (principal)
CPT/HCPCS: 36415; 74176-TC; 80053; 81003; 82550; 84484; 85025; 85610; 85730; 86850; 86900; 86901; 87086; 87186; 93005; 93010; 99285-25

== ENCOUNTER 2020-12-13 05:00 | Day surgery (SDC) | payer OTHER, MEDICARE ==
[2020-12-12 17:20] VITALS: BMI 30.2
[2020-12-13] MEDS ORDERED: ONDANSETRON 4 MG/2 ML VIAL IVPUSH ONE (14:15)
[2020-12-13 15:11] VITALS: BP 128/88; PULSE 60; TEMP 98.2
== END 2020-12-13 15:46 | disposition home or self-care (01) ==
LOC: JRADIR 05:00
PROVIDERS: ATTEND Urology
PROC: 0TP93DZ Removal of Intraluminal Device from Ureter, Percutaneous Approach (ICD-10-PCS; principal; 2020-12-13)
PROC: 0T763DZ Dilation of Right Ureter with Intraluminal Device, Percutaneous Approach (ICD-10-PCS; 2020-12-13)
DX: N13.9 Obstructive and reflux uropathy, unspecified (principal); Z85.51 Personal history of malignant neoplasm of bladder; Z53.8 Procedure and treatment not carried out for other reasons
CPT/HCPCS: 50693; 76775-TC; 82962

== ENCOUNTER 2021-09-10 10:44 | Inpatient (IN) | payer OTHER, MEDICARE ==
[2021-09-10] MEDS ORDERED: SODIUM CHLORIDE 0.9% 500 ML INFUS.BAG IV ONE (11:18)
[2021-09-10] MEDS ORDERED: ACETAMINOPHEN 1000 MG/100 ML BAG IVPB ONE (11:18)
[2021-09-10] MEDS ORDERED: ERTAPENEM SODIUM 1 GM in SODIUM CHLORIDE 50 ML IVPB ONE (11:42)
[2021-09-10 12:06] LABS: BASO % 0.2 % (0-2.0); EOS % 0.1 % (0-4.5); HEMATOCRIT 36.1 % (35.4-49); HEMOGLOBIN 12.2 GM/dL (11.7-16.9); LYMPH % 16.6 % (8-40); MCH 32.2 pg (25.7-33.7); MCHC 33.9 g/dl (32.0-35.9); MONO % 9.9 % (3.8-10.2); NEUT % 73.2 % (42.8-82.8); PLATELET COUNT 99 10^3/uL (134-434); RDW 17.2 % (11.9-15.9); WHITE BLOOD COUNT 3.5 K/mm3 (4.0-10.0)
[2021-09-10 12:14] LABS: INR 1.46 (0.83-1.09); PROTHROMBIN TIME (PATIENT) 16.9 SEC (9.7-13.0)
[2021-09-10 12:16] LABS: ACTIVATED PTT 35.9 SECONDS (25.2-36.5)
[2021-09-10 12:26] LABS: EPI CELLS 31 /uL (0-25.1); HYALINE CASTS 19 /uL (0-3.1); PH,URINE 5.5 (5.0-8.0); URINE APPEARANCE TURBID; URINE BACTERIA >9,000 /uL (0-1359); URINE BILIRUBIN 1+ (NEGATIVE); URINE COLOR DK YELLOW; URINE GLUCOSE (UA) TRACE (NEGATIVE); URINE KETONE 1+ (NEGATIVE); URINE LEUK ESTERASE 3+ (NEGATIVE); URINE NITRITE NEGATIVE (NEGATIVE); URINE PROTEIN 3+ (NEGATIVE); URINE WBC 8649 /uL (0-25.8)
[2021-09-10] MEDS ORDERED: ACETAMINOPHEN INJECTION 100 ML IVPB ONE (12:34)
[2021-09-10 12:35] LABS: LACTIC ACID 2.2 mmol/L (0.4-2.0)
[2021-09-10 12:39] LABS: URINE RBC 461.3 /uL (0-23.9)
[2021-09-10] MEDS ORDERED: ACETAMINOPHEN 325 MG TABLET (FP) PO PRN (13:39)
[2021-09-10 15:01] LABS: BLOOD UREA NITROGEN 28.6 mg/dL (7-18)
[2021-09-10 15:02] LABS: ALBUMIN 4.1 g/dl (3.4-5.0)
[2021-09-10 15:04] LABS: CREATININE 1.5 mg/dL (0.55-1.3)
[2021-09-10 15:06] LABS: TOT PROT 7.7 g/dl (6.4-8.2)
[2021-09-10 15:07] LABS: BILIRUBIN,TOTAL 1.6 mg/dL (0.2-1)
[2021-09-10 16:26] VITALS: BMI 31.6
[2021-09-10] MEDS: SODIUM CHLORIDE 1,000 ML IV SCH (17:13)
[2021-09-10] MEDS: RIVAROXABAN 20 MG TABLET PO SCH (17:53)
[2021-09-10] MEDS: ATORVASTATIN CA 20 MG TABLET (FP) PO SCH (21:30)
[2021-09-11] MEDS: SODIUM CHLORIDE 1,000 ML IV SCH ×2 (03:12→13:23)
[2021-09-11 09:06] LABS: CALCIUM 8.3 mg/dL (8.5-10.1)
[2021-09-11 09:07] LABS: ALBUMIN 3.4 g/dl (3.4-5.0)
[2021-09-11 09:09] LABS: CREATININE 1.1 mg/dL (0.55-1.3)
[2021-09-11 09:11] LABS: BILIRUBIN,TOTAL 0.9 mg/dL (0.2-1); TOT PROT 6.7 g/dl (6.4-8.2)
[2021-09-11] MEDS ORDERED: VALSARTAN 80 MG TABLET PO SCH (10:00)
[2021-09-11] MEDS: ERTAPENEM SODIUM 1 GM in SODIUM CHLORIDE 50 ML IVPB SCH (10:39)
[2021-09-11] MEDS: MESALAMINE 800 MG TABLET.DR PO SCH ×2 (13:23→21:44)
[2021-09-11] MEDS: RIVAROXABAN 20 MG TABLET PO SCH (17:58)
[2021-09-11] MEDS: ATORVASTATIN CA 20 MG TABLET (FP) PO SCH (21:44)
[2021-09-12 07:52] LABS: BASO % 0.4 % (0-2.0); EOS % 3.6 % (0-4.5); HEMATOCRIT 30.1 % (35.4-49); HEMOGLOBIN 10.1 GM/dL (11.7-16.9); LYMPH % 28.1 % (8-40); MCH 31.9 pg (25.7-33.7); MCHC 33.6 g/dl (32.0-35.9); MEAN CELL VOLUME 94.9 fl (80-96); MEAN PLT VOLUME 8.6 fl (7.5-11.1); MONO % 12.2 % (3.8-10.2); NEUT % 55.7 % (42.8-82.8); PLATELET COUNT 86 10^3/uL (134-434); RBC 3.17 M/mm3 (4.00-5.60); RDW 17.4 % (11.9-15.9)
[2021-09-12 07:57] LABS: CALCIUM 7.9 mg/dL (8.5-10.1)
[2021-09-12 07:58] LABS: ALBUMIN 2.9 g/dl (3.4-5.0); BLOOD UREA NITROGEN 20.2 mg/dL (7-18)
[2021-09-12 08:01] LABS: CREATININE 0.9 mg/dL (0.55-1.3)
[2021-09-12 08:03] LABS: BILIRUBIN,TOTAL 0.7 mg/dL (0.2-1)
[2021-09-12] MEDS: ERTAPENEM SODIUM 1 GM in SODIUM CHLORIDE 50 ML IVPB SCH (11:11)
[2021-09-12] MEDS: VALSARTAN 80 MG TABLET PO SCH (11:11)
[2021-09-12] MEDS: MESALAMINE 800 MG TABLET.DR PO SCH ×2 (11:11→22:33)
[2021-09-12] MEDS ORDERED: IRON SUCROSE INJECTION 300 MG in SODIUM CHLORIDE 235 ML IVPB ONE (12:15)
[2021-09-12] MEDS: SODIUM CHLORIDE 1,000 ML IV SCH (12:45)
[2021-09-12] MEDS: POLYETHYLENE GLYCOL (HEALTHYLAX) 3350 17 GM PACKET PO SCH (12:45)
[2021-09-12] MEDS: RIVAROXABAN 20 MG TABLET PO SCH (17:39)
[2021-09-12] MEDS: ATORVASTATIN CA 20 MG TABLET (FP) PO SCH (22:33)
[2021-09-13] MEDS: SODIUM CHLORIDE 1,000 ML IV SCH ×2 (07:49→19:30)
[2021-09-13 08:39] LABS: HEMATOCRIT 29.1 % (35.4-49); HEMOGLOBIN 9.7 GM/dL (11.7-16.9); MCH 31.6 pg (25.7-33.7); MCHC 33.3 g/dl (32.0-35.9); MEAN PLT VOLUME 8.5 fl (7.5-11.1); PLATELET COUNT 94 10^3/uL (134-434); RBC 3.06 M/mm3 (4.00-5.60); RDW 17.1 % (11.9-15.9)
[2021-09-13 09:02] LABS: WHITE BLOOD COUNT 1.9 K/mm3 (4.0-10.0)
[2021-09-13 09:07] LABS: CALCIUM 8.6 mg/dL (8.5-10.1)
[2021-09-13 09:11] LABS: CREATININE 0.9 mg/dL (0.55-1.3)
[2021-09-13 09:12] LABS: BILIRUBIN,TOTAL 0.7 mg/dL (0.2-1)
[2021-09-13 09:13] LABS: TOT PROT 5.8 g/dl (6.4-8.2)
[2021-09-13] MEDS: VALSARTAN 80 MG TABLET PO SCH (10:11)
[2021-09-13] MEDS: POLYETHYLENE GLYCOL (HEALTHYLAX) 3350 17 GM PACKET PO SCH (10:11)
[2021-09-13] MEDS: MESALAMINE 800 MG TABLET.DR PO SCH ×2 (10:21→21:28)
[2021-09-13] MEDS: ERTAPENEM SODIUM 1 GM in SODIUM CHLORIDE 50 ML IVPB SCH (10:39)
[2021-09-13] MEDS: RIVAROXABAN 20 MG TABLET PO SCH (17:29)
[2021-09-13] MEDS: ATORVASTATIN CA 20 MG TABLET (FP) PO SCH (21:28)
[2021-09-14 09:14] LABS: BASO % 0.6 % (0-2.0); EOS % 3.8 % (0-4.5); HEMATOCRIT 30.1 % (35.4-49); LYMPH % 30.9 % (8-40); MCH 31.7 pg (25.7-33.7); MCHC 33.2 g/dl (32.0-35.9); MEAN CELL VOLUME 95.5 fl (80-96); MEAN PLT VOLUME 8.7 fl (7.5-11.1); MONO % 8.6 % (3.8-10.2); NEUT % 56.1 % (42.8-82.8); PLATELET COUNT 106 10^3/uL (134-434); RBC 3.15 M/mm3 (4.00-5.60); RDW 17.1 % (11.9-15.9); WHITE BLOOD COUNT 2.3 K/mm3 (4.0-10.0)
[2021-09-14 10:31] LABS: HIV INTERPRETATION NEGATIVE (NEGATIVE)
[2021-09-14] MEDS: ERTAPENEM SODIUM 1 GM in SODIUM CHLORIDE 50 ML IVPB SCH (10:40)
[2021-09-14] MEDS: VALSARTAN 80 MG TABLET PO SCH (10:42)
[2021-09-14] MEDS: POLYETHYLENE GLYCOL (HEALTHYLAX) 3350 17 GM PACKET PO SCH (10:42)
[2021-09-14] MEDS: MESALAMINE 800 MG TABLET.DR PO SCH ×2 (10:43→21:56)
[2021-09-14] MEDS: RIVAROXABAN 20 MG TABLET PO SCH (17:15)
[2021-09-14] MEDS: ATORVASTATIN CA 20 MG TABLET (FP) PO SCH (21:56)
[2021-09-15 09:14] LABS: BASO % 0.3 % (0-2.0); EOS % 1.8 % (0-4.5); HEMATOCRIT 29.3 % (35.4-49); HEMOGLOBIN 10.1 GM/dL (11.7-16.9); LYMPH % 17.4 % (8-40); MCH 32.5 pg (25.7-33.7); MCHC 34.6 g/dl (32.0-35.9); MEAN PLT VOLUME 8.1 fl (7.5-11.1); MONO % 7.7 % (3.8-10.2); NEUT % 72.8 % (42.8-82.8); PLATELET COUNT 101 10^3/uL (134-434); RBC 3.12 M/mm3 (4.00-5.60); RDW 16.8 % (11.9-15.9); WHITE BLOOD COUNT 2.9 K/mm3 (4.0-10.0)
[2021-09-15 09:18] LABS: BLOOD UREA NITROGEN 16.9 mg/dL (7-18); CALCIUM 8.4 mg/dL (8.5-10.1)
[2021-09-15 09:23] LABS: BILIRUBIN,TOTAL 0.6 mg/dL (0.2-1); TOT PROT 6.1 g/dl (6.4-8.2)
[2021-09-15] MEDS: MESALAMINE 800 MG TABLET.DR PO SCH ×2 (10:59→21:32)
[2021-09-15] MEDS: ERTAPENEM SODIUM 1 GM in SODIUM CHLORIDE 50 ML IVPB SCH (10:59)
[2021-09-15] MEDS: VALSARTAN 80 MG TABLET PO SCH (10:59)
[2021-09-15] MEDS: POLYETHYLENE GLYCOL (HEALTHYLAX) 3350 17 GM PACKET PO SCH (10:59)
[2021-09-15] MEDS: RIVAROXABAN 20 MG TABLET PO SCH (17:30)
[2021-09-15] MEDS: ATORVASTATIN CA 20 MG TABLET (FP) PO SCH (21:32)
[2021-09-16] MEDS: MESALAMINE 800 MG TABLET.DR PO SCH ×2 (09:54→22:16)
[2021-09-16] MEDS: POLYETHYLENE GLYCOL (HEALTHYLAX) 3350 17 GM PACKET PO SCH (09:54)
[2021-09-16] MEDS: VALSARTAN 80 MG TABLET PO SCH (09:54)
[2021-09-16] MEDS: ERTAPENEM SODIUM 1 GM in SODIUM CHLORIDE 50 ML IVPB SCH (09:54)
[2021-09-16] MEDS: RIVAROXABAN 20 MG TABLET PO SCH (17:26)
[2021-09-16] MEDS: ATORVASTATIN CA 20 MG TABLET (FP) PO SCH (22:16)
[2021-09-17] MEDS: VALSARTAN 80 MG TABLET PO SCH (10:40)
[2021-09-17] MEDS: POLYETHYLENE GLYCOL (HEALTHYLAX) 3350 17 GM PACKET PO SCH (10:40)
[2021-09-17] MEDS: ERTAPENEM SODIUM 1 GM in SODIUM CHLORIDE 50 ML IVPB SCH (10:40)
[2021-09-17] MEDS: MESALAMINE 800 MG TABLET.DR PO SCH ×2 (10:41→21:42)
[2021-09-17 12:07] LABS: HEMATOCRIT 33.4 % (35.4-49); HEMOGLOBIN 10.9 GM/dL (11.7-16.9); MCH 31.1 pg (25.7-33.7); MCHC 32.7 g/dl (32.0-35.9); MEAN CELL VOLUME 95.2 fl (80-96); MEAN PLT VOLUME 9.1 fl (7.5-11.1); PLATELET COUNT 138 10^3/uL (134-434); RBC 3.51 M/mm3 (4.00-5.60); RDW 17.4 % (11.9-15.9); WHITE BLOOD COUNT 2.7 K/mm3 (4.0-10.0)
[2021-09-17 12:39] LABS: ALBUMIN 3.5 g/dl (3.4-5.0); BLOOD UREA NITROGEN 21.6 mg/dL (7-18); CALCIUM 8.8 mg/dL (8.5-10.1); MAGNESIUM 2.1 mg/dL (1.8-2.4)
[2021-09-17 12:41] LABS: IRON SERUM 27 ug/dL (50-175)
[2021-09-17 12:42] LABS: CREATININE 1.1 mg/dL (0.55-1.3); TOTAL IRON BINDING CAPACITY 202 ug/dL (250-450)
[2021-09-17 12:44] LABS: BILIRUBIN,TOTAL 0.7 mg/dL (0.2-1); TOT PROT 7.1 g/dl (6.4-8.2)
[2021-09-17] MEDS ORDERED: SODIUM CHLORIDE 500 ML IV STA (13:38)
[2021-09-17] MEDS: RIVAROXABAN 20 MG TABLET PO SCH (18:32)
[2021-09-17] MEDS: ATORVASTATIN CA 20 MG TABLET (FP) PO SCH (21:42)
[2021-09-18 09:29] LABS: LDH 190 U/L (87-246)
[2021-09-18] MEDS: POLYETHYLENE GLYCOL (HEALTHYLAX) 3350 17 GM PACKET PO SCH ×2 (11:05→11:09)
[2021-09-18] MEDS: MESALAMINE 800 MG TABLET.DR PO SCH ×2 (11:05→22:03)
[2021-09-18] MEDS ORDERED: IRON SUCROSE INJECTION 300 MG in SODIUM CHLORIDE 235 ML IVPB ONE (17:10)
[2021-09-18] MEDS: RIVAROXABAN 20 MG TABLET PO SCH (18:18)
[2021-09-18] MEDS: ERTAPENEM SODIUM 1 GM in SODIUM CHLORIDE 50 ML IVPB SCH (18:18)
[2021-09-18] MEDS: ATORVASTATIN CA 20 MG TABLET (FP) PO SCH (22:03)
[2021-09-19] MEDS: ERTAPENEM SODIUM 1 GM in SODIUM CHLORIDE 50 ML IVPB SCH (10:15)
[2021-09-19 11:26] LABS: BASO % 0.2 % (0-2.0); EOS % 2.2 % (0-4.5); HEMATOCRIT 30.7 % (35.4-49); HEMOGLOBIN 10.2 GM/dL (11.7-16.9); LYMPH % 28.9 % (8-40); MCH 31.2 pg (25.7-33.7); MCHC 33.2 g/dl (32.0-35.9); MEAN CELL VOLUME 93.8 fl (80-96); MEAN PLT VOLUME 10.1 fl (7.5-11.1); MONO % 10.4 % (3.8-10.2); NEUT % 58.3 % (42.8-82.8); PLATELET COUNT 157 10^3/uL (134-434); RBC 3.27 M/mm3 (4.00-5.60); RDW 16.8 % (11.9-15.9); WHITE BLOOD COUNT 2.4 K/mm3 (4.0-10.0)
[2021-09-19] MEDS: MESALAMINE 800 MG TABLET.DR PO SCH ×2 (11:28→21:50)
[2021-09-19] MEDS: POLYETHYLENE GLYCOL (HEALTHYLAX) 3350 17 GM PACKET PO SCH (11:28)
[2021-09-19 11:47] LABS: CALCIUM 8.5 mg/dL (8.5-10.1)
[2021-09-19 11:48] LABS: BLOOD UREA NITROGEN 23.2 mg/dL (7-18)
[2021-09-19 11:51] LABS: CREATININE 0.9 mg/dL (0.55-1.3)
[2021-09-19] MEDS: RIVAROXABAN 20 MG TABLET PO SCH (17:27)
[2021-09-19] MEDS: ATORVASTATIN CA 20 MG TABLET (FP) PO SCH (21:50)
[2021-09-20 07:45] VITALS: PULSE 80; TEMP 97.8
[2021-09-20 08:30] LABS: BASO % 0.2 % (0-2.0); EOS % 2.1 % (0-4.5); HEMATOCRIT 28.9 % (35.4-49); HEMOGLOBIN 9.5 GM/dL (11.7-16.9); LYMPH % 25.1 % (8-40); MCH 30.9 pg (25.7-33.7); MCHC 32.9 g/dl (32.0-35.9); MEAN CELL VOLUME 94.2 fl (80-96); MEAN PLT VOLUME 8.8 fl (7.5-11.1); MONO % 9.6 % (3.8-10.2); PLATELET COUNT 122 10^3/uL (134-434); RBC 3.07 M/mm3 (4.00-5.60); RDW 16.9 % (11.9-15.9); WHITE BLOOD COUNT 2.6 K/mm3 (4.0-10.0)
[2021-09-20 08:50] LABS: ALBUMIN 2.9 g/dl (3.4-5.0); BLOOD UREA NITROGEN 17.2 mg/dL (7-18); CALCIUM 8.3 mg/dL (8.5-10.1)
[2021-09-20 08:54] LABS: CREATININE 0.9 mg/dL (0.55-1.3)
[2021-09-20 08:55] LABS: BILIRUBIN,TOTAL 0.5 mg/dL (0.2-1)
[2021-09-20 10:23] VITALS: BP 118/71
[2021-09-20] MEDS: ERTAPENEM SODIUM 1 GM in SODIUM CHLORIDE 50 ML IVPB SCH (11:38)
[2021-09-20] MEDS: MESALAMINE 800 MG TABLET.DR PO SCH (11:39)
[2021-09-20] MEDS: POLYETHYLENE GLYCOL (HEALTHYLAX) 3350 17 GM PACKET PO SCH (11:39)
[2021-09-21] MEDS ORDERED: VALSARTAN 40 MG TABLET PO SCH (10:00)
== END 2021-09-20 17:55 | DRG 689 ==
LOC: JER 10:44 → JERBED 13:17 → J8W 15:52
PROVIDERS: ADMIT Family Medicine; ATTEND Family Medicine
DX: N39.0 Urinary tract infection, site not specified (principal); G93.41 Metabolic encephalopathy; D61.818 Other pancytopenia; E87.2 Acidosis; D64.9 Anemia, unspecified; I10 Essential (primary) hypertension; R41.82 Altered mental status, unspecified; E78.5 Hyperlipidemia, unspecified; E11.9 Type 2 diabetes mellitus without complications; N40.0 Benign prostatic hyperplasia without lower urinary tract symptoms; K58.9 Irritable bowel syndrome, unspecified; R26.81 Unsteadiness on feet; D69.6 Thrombocytopenia, unspecified; D50.9 Iron deficiency anemia, unspecified; R53.1 Weakness; I48.0 Paroxysmal atrial fibrillation; Z93.2 Ileostomy status; Z85.51 Personal history of malignant neoplasm of bladder; Z86.73 Personal history of transient ischemic attack (TIA), and cerebral infarction without residual deficits
CPT/HCPCS: 36415; 70450-TC; 71045-TC-FY; 72128-TC; 72131-TC; 74176-TC; 80048; 80053; 80061; 81003; 82272; 82550; 82607; 82728; 82747; 82962; 83036; 83540; 83550; 83605; 83615; 83735; 84439; 84443; 85014; 85025; 85027; 85610; 85730; 87040; 87086; 87186; 87324; 87389; 87449; 93005; 93010; 97116-GP; 97161-GP; 99285-25; C9803-CS; J1756; U0003; U0005

== ENCOUNTER 2021-11-03 14:08 | Observation (INO) | payer OTHER, MEDICARE ==
[2021-11-03] MEDS ORDERED: ACETAMINOPHEN 1000 MG/100 ML BAG IVPB ONE (14:39)
[2021-11-03] MEDS ORDERED: DIPHTH,PERTUSS(ACELL),TET 0.5 ML DISP.SYRIN IM ONE ×2 (14:42→17:29)
[2021-11-03] MEDS ORDERED: ACETAMINOPHEN INJECTION 100 ML IVPB ONE (14:46)
[2021-11-03 15:16] LABS: BASO % 0.3 % (0-2.0); EOS % 0.8 % (0-4.5); HEMATOCRIT 36.8 % (35.4-49); HEMOGLOBIN 11.9 GM/dL (11.7-16.9); LYMPH % 21.7 % (8-40); MCH 29.9 pg (25.7-33.7); MCHC 32.4 g/dl (32.0-35.9); MEAN CELL VOLUME 92.1 fl (80-96); MEAN PLT VOLUME 8.7 fl (7.5-11.1); MONO % 6.2 % (3.8-10.2); PLATELET COUNT 97 10^3/uL (134-434); RBC 3.99 M/mm3 (4.00-5.60); RDW 16.4 % (11.9-15.9); WHITE BLOOD COUNT 3.6 K/mm3 (4.0-10.0)
[2021-11-03 15:24] LABS: INR 1.31 (0.83-1.09); PROTHROMBIN TIME (PATIENT) 15.1 SEC (9.7-13.0)
[2021-11-03 15:27] LABS: ACTIVATED PTT 36.5 SECONDS (25.2-36.5)
[2021-11-03 15:46] LABS: CALCIUM 9.5 mg/dL (8.5-10.1)
[2021-11-03 15:47] LABS: BLOOD UREA NITROGEN 16.5 mg/dL (7-18); MAGNESIUM 2.1 mg/dL (1.8-2.4)
[2021-11-03 15:50] LABS: CREATININE 1.1 mg/dL (0.55-1.3)
[2021-11-03 15:51] LABS: TOT PROT 7.4 g/dl (6.4-8.2)
[2021-11-03 16:43] LABS: EPI CELLS 11 /uL (0-25.1); HYALINE CASTS 104 /uL (0-3.1); PH,URINE 5.5 (5.0-8.0); URINE APPEARANCE CLOUDY; URINE BACTERIA 8272 /uL (0-1359); URINE BILIRUBIN NEGATIVE (NEGATIVE); URINE COLOR YELLOW; URINE GLUCOSE (UA) NEGATIVE (NEGATIVE); URINE KETONE NEGATIVE (NEGATIVE); URINE LEUK ESTERASE 2+ (NEGATIVE); URINE NITRITE POSITIVE (NEGATIVE); URINE PROTEIN 1+ (NEGATIVE); URINE RBC 34 /uL (0-23.9); URINE UROBILINOGEN 0.2 mg/dL (0.2-1.0); URINE WBC 355 /uL (0-25.8)
[2021-11-03 17:27] LABS: URINE CRYSTALS MODERATE /hpf
[2021-11-03] MEDS ORDERED: CEFTRIAXONE 1 GM in DEXTROSE 5%-WATER - 100 ML IVPB ONE (17:30)
[2021-11-03] MEDS ORDERED: MEROPENEM 1 GM in DEXTROSE 5%-WATER 100 ML IVPB ONE (17:40)
[2021-11-03] MEDS ORDERED: MEROPENEM 1 GM VIAL (RESTRICTED TO ID) IVPB ONE (18:14)
[2021-11-03] MEDS ORDERED: ACETAMINOPHEN 325 MG TABLET (FP) PO PRN (18:31)
[2021-11-03] MEDS ORDERED: LIDOCAINE 5% TOPICAL PATCH TP ONE (21:35)
[2021-11-03] MEDS ORDERED: LIDOCAINE 5% TOPICAL PATCH ONE (21:49)
[2021-11-03] MEDS ORDERED: ATORVASTATIN CA 20 MG TABLET (FP) ONE (21:49)
[2021-11-03] MEDS: ATORVASTATIN CA 20 MG TABLET (FP) PO SCH (22:03)
[2021-11-03] MEDS: azaTHIOprine 50 MG TABLET PO SCH (22:40)
[2021-11-03 23:44] VITALS: BMI 32.1
[2021-11-04] MEDS: ACETAMINOPHEN 325 MG TABLET (FP) PO PRN ×3 (06:54→20:27)
[2021-11-04] MEDS ORDERED: DEXTROSE 5%-WATER 100 ML IVPB ONE (09:03)
[2021-11-04] MEDS ORDERED: MEROPENEM 1 GM VIAL (RESTRICTED TO ID) IVPB ONE (09:03)
[2021-11-04] MEDS: MULTIVITAMINS (DAILY MVI) TABLET (FP) PO SCH (09:30)
[2021-11-04] MEDS: VALSARTAN 40 MG TABLET PO SCH (09:30)
[2021-11-04] MEDS ORDERED: MEROPENEM 1 GM in DEXTROSE 5%-WATER 100 ML IVPB SCH (10:00)
[2021-11-04] MEDS ORDERED: LIDOCAINE PATCH REMOVAL MC SCH (10:00)
[2021-11-04] MEDS: azaTHIOprine 50 MG TABLET PO SCH ×2 (12:09→22:09)
[2021-11-04] MEDS: RIVAROXABAN 20 MG TABLET PO SCH (18:24)
[2021-11-04] MEDS: ATORVASTATIN CA 20 MG TABLET (FP) PO SCH (22:09)
[2021-11-05] MEDS: ACETAMINOPHEN 325 MG TABLET (FP) PO PRN ×2 (06:36→13:26)
[2021-11-05] MEDS: azaTHIOprine 50 MG TABLET PO SCH ×2 (09:03→21:11)
[2021-11-05] MEDS: VALSARTAN 40 MG TABLET PO SCH (09:03)
[2021-11-05] MEDS: MULTIVITAMINS (DAILY MVI) TABLET (FP) PO SCH (09:03)
[2021-11-05] MEDS: RIVAROXABAN 20 MG TABLET PO SCH (18:06)
[2021-11-05] MEDS: LIDOCAINE 5% TOPICAL PATCH TP SCH (18:55)
[2021-11-05] MEDS: ATORVASTATIN CA 20 MG TABLET (FP) PO SCH (21:11)
[2021-11-05] MEDS ORDERED: LIDOCAINE PATCH REMOVAL MC SCH (22:00)
[2021-11-06] MEDS ORDERED: POLYETHYLENE GLYCOL (HEALTHYLAX) 3350 17 GM PACKET PO SCH (10:00)
[2021-11-06] MEDS: ACETAMINOPHEN 325 MG TABLET (FP) PO PRN (10:10)
[2021-11-06] MEDS: azaTHIOprine 50 MG TABLET PO SCH (10:11)
[2021-11-06] MEDS: LIDOCAINE 5% TOPICAL PATCH TP SCH (10:11)
[2021-11-06] MEDS: VALSARTAN 40 MG TABLET PO SCH (10:11)
[2021-11-06] MEDS: MULTIVITAMINS (DAILY MVI) TABLET (FP) PO SCH (10:11)
[2021-11-06 15:16] VITALS: BP 115/67; PULSE 60; TEMP 97.8
== END 2021-11-06 18:22 | disposition home or self-care (01) ==
LOC: JER 14:08 → INTOOBSV 17:32 → JERBED 17:32 → J4S 23:14
PROVIDERS: ADMIT Internal Medicine; ATTEND Family Medicine
PROC: 0HQ1XZZ Repair Face Skin, External Approach (ICD-10-PCS; principal; 2021-11-03)
PROC: 3E033NZ Introduction of Analgesics, Hypnotics, Sedatives into Peripheral Vein, Percutaneous Approach (ICD-10-PCS; 2021-11-03)
PROC: 3E03329 Introduction of Other Anti-infective into Peripheral Vein, Percutaneous Approach (ICD-10-PCS; 2021-11-03)
PROC: 3E0234Z Introduction of Serum, Toxoid and Vaccine into Muscle, Percutaneous Approach (ICD-10-PCS; 2021-11-03)
PROC: 3E0337Z Introduction of Electrolytic and Water Balance Substance into Peripheral Vein, Percutaneous Approach (ICD-10-PCS; 2021-11-03)
DX: I48.0 Paroxysmal atrial fibrillation (principal); E66.9 Obesity, unspecified; Z68.32 Body mass index [BMI] 32.0-32.9, adult; Z79.01 Long term (current) use of anticoagulants; S61.213A Laceration without foreign body of left middle finger without damage to nail, initial encounter; W18.39XA Other fall on same level, initial encounter; Y93.89 Activity, other specified; Y92.89 Other specified places as the place of occurrence of the external cause; R55 Syncope and collapse; M54.9 Dorsalgia, unspecified; D72.819 Decreased white blood cell count, unspecified; I10 Essential (primary) hypertension; E78.5 Hyperlipidemia, unspecified; N40.0 Benign prostatic hyperplasia without lower urinary tract symptoms; Z85.46 Personal history of malignant neoplasm of prostate; E11.9 Type 2 diabetes mellitus without complications; N39.0 Urinary tract infection, site not specified; S80.212A Abrasion, left knee, initial encounter; S80.211A Abrasion, right knee, initial encounter; Z86.73 Personal history of transient ischemic attack (TIA), and cerebral infarction without residual deficits; R94.31 Abnormal electrocardiogram [ECG] [EKG]; Z87.891 Personal history of nicotine dependence; Z20.822 Contact with and (suspected) exposure to COVID-19
CPT/HCPCS: 12011-25; 36415; 70450-TC; 71045-TC-FY; 72125-TC; 72131-TC; 73130-TC-LT-FY; 73560-TC-LT-FY; 73560-TC-RT-FY; 80053; 81003; 83036; 83735; 84484; 85025; 85610; 85730; 90471; 90715; 93005; 93010; 96361; 96365; 96375; 97116-GP; 97161-GP; 99285-25; C9803-CS; G0378; U0003; U0005

== ENCOUNTER 2021-12-04 13:35 | Inpatient (IN) | payer OTHER, MEDICARE ==
[2021-12-04] MEDS ORDERED: ACETAMINOPHEN 325 MG TABLET (FP) PO PRN (17:18)
[2021-12-04 20:34] LABS: BASO % 0.2 % (0-2.0); EOS % 0.4 % (0-4.5); LYMPH % 15.3 % (8-40); MCH 28.9 pg (25.7-33.7); MCHC 32.4 g/dl (32.0-35.9); MEAN CELL VOLUME 89.2 fl (80-96); MEAN PLT VOLUME 8.3 fl (7.5-11.1); MONO % 6.6 % (3.8-10.2); NEUT % 77.5 % (42.8-82.8); PLATELET COUNT 152 10^3/uL (134-434); RBC 3.81 M/mm3 (4.00-5.60); RDW 17.2 % (11.9-15.9); WHITE BLOOD COUNT 4.2 K/mm3 (4.0-10.0)
[2021-12-04 20:56] LABS: ALBUMIN 3.4 g/dl (3.4-5.0); BLOOD UREA NITROGEN 14.8 mg/dL (7-18); CALCIUM 8.6 mg/dL (8.5-10.1)
[2021-12-04 21:01] LABS: BILIRUBIN,TOTAL 0.7 mg/dL (0.2-1); TOT PROT 7.5 g/dl (6.4-8.2)
[2021-12-04] MEDS: RIVAROXABAN 20 MG TABLET PO SCH (22:20)
[2021-12-04] MEDS ORDERED: metoPROLOL SUCCINATE 25 MG TAB.SR.24H (FP) PO ONE (22:22)
[2021-12-04] MEDS ORDERED: ATORVASTATIN CA 40 MG TABLET (FP) ONE (22:22)
[2021-12-04] MEDS: SODIUM CHLORIDE 1,000 ML IV SCH (22:29)
[2021-12-04] MEDS: metoPROLOL SUCCINATE 25 MG TAB.SR.24H (FP) PO SCH (22:29)
[2021-12-04] MEDS: ATORVASTATIN CA 40 MG TABLET (FP) PO SCH (22:29)
[2021-12-04] MEDS: MESALAMINE 800 MG TABLET.DR PO SCH (22:40)
[2021-12-05] MEDS: MESALAMINE 800 MG TABLET.DR PO SCH ×2 (06:18→21:44)
[2021-12-05 06:41] LABS: HEMATOCRIT 31.6 % (35.4-49); HEMOGLOBIN 10.5 GM/dL (11.7-16.9); MCH 29.2 pg (25.7-33.7); MCHC 33.1 g/dl (32.0-35.9); MEAN CELL VOLUME 88.3 fl (80-96); MEAN PLT VOLUME 8.8 fl (7.5-11.1); PLATELET COUNT 131 10^3/uL (134-434); RBC 3.58 M/mm3 (4.00-5.60); RDW 17.2 % (11.9-15.9); WHITE BLOOD COUNT 3.5 K/mm3 (4.0-10.0)
[2021-12-05 06:48] LABS: EPI CELLS 17 /uL (0-25.1); HYALINE CASTS 9 /uL (0-3.1); PH,URINE 5.5 (5.0-8.0); URINE APPEARANCE TURBID; URINE BACTERIA >9,000 /uL (0-1359); URINE BILIRUBIN NEGATIVE (NEGATIVE); URINE COLOR YELLOW; URINE GLUCOSE (UA) NEGATIVE (NEGATIVE); URINE KETONE NEGATIVE (NEGATIVE); URINE LEUK ESTERASE 3+ (NEGATIVE); URINE NITRITE POSITIVE (NEGATIVE); URINE PROTEIN 1+ (NEGATIVE); URINE RBC 49 /uL (0-23.9); URINE UROBILINOGEN 0.2 mg/dL (0.2-1.0); URINE WBC 9041 /uL (0-25.8)
[2021-12-05 07:05] LABS: CALCIUM 8.6 mg/dL (8.5-10.1)
[2021-12-05 07:09] LABS: ALBUMIN 2.9 g/dl (3.4-5.0); BLOOD UREA NITROGEN 14.5 mg/dL (7-18)
[2021-12-05 07:10] LABS: CREATININE 0.9 mg/dL (0.55-1.3)
[2021-12-05 07:12] LABS: TOT PROT 6.3 g/dl (6.4-8.2)
[2021-12-05 07:13] LABS: BILIRUBIN,TOTAL 0.8 mg/dL (0.2-1)
[2021-12-05 08:39] LABS: URINE CRYSTALS NOE /hpf
[2021-12-05] MEDS: metoPROLOL SUCCINATE 25 MG TAB.SR.24H (FP) PO SCH ×2 (10:34→21:45)
[2021-12-05] MEDS: VALSARTAN 40 MG TABLET PO SCH (10:34)
[2021-12-05] MEDS: RIVAROXABAN 20 MG TABLET PO SCH (18:39)
[2021-12-05] MEDS: SODIUM CHLORIDE 1,000 ML IV SCH (18:40)
[2021-12-05] MEDS ORDERED: VANCOMYCIN/WATER FOR INJ (PEG) 1,000 MG/200 ML BAG IVPB ONE (20:30)
[2021-12-05] MEDS: ATORVASTATIN CA 40 MG TABLET (FP) PO SCH (21:44)
[2021-12-06] MEDS: MESALAMINE 800 MG TABLET.DR PO SCH ×3 (06:12→21:18)
[2021-12-06] MEDS: VALSARTAN 40 MG TABLET PO SCH (09:51)
[2021-12-06] MEDS: metoPROLOL SUCCINATE 25 MG TAB.SR.24H (FP) PO SCH ×2 (10:39→21:19)
[2021-12-06] MEDS: SODIUM CHLORIDE 1,000 ML IV SCH (12:30)
[2021-12-06] MEDS: RIVAROXABAN 20 MG TABLET PO SCH (17:52)
[2021-12-06] MEDS: ATORVASTATIN CA 40 MG TABLET (FP) PO SCH (21:19)
[2021-12-07] MEDS: SODIUM CHLORIDE 1,000 ML IV SCH (01:57)
[2021-12-07] MEDS: MESALAMINE 800 MG TABLET.DR PO SCH ×3 (06:08→21:34)
[2021-12-07] MEDS ORDERED: DEXTROSE 5%-WATER 100 ML IVPB ONE ×2 (09:34→17:04)
[2021-12-07] MEDS ORDERED: MEROPENEM 1 GM VIAL (RESTRICTED TO ID) IVPB ONE ×2 (09:34→17:04)
[2021-12-07] MEDS: MEROPENEM 1 GM in DEXTROSE 5%-WATER 100 ML IVPB SCH ×2 (09:35→17:13)
[2021-12-07] MEDS: metoPROLOL SUCCINATE 25 MG TAB.SR.24H (FP) PO SCH ×2 (09:35→21:34)
[2021-12-07] MEDS: VALSARTAN 40 MG TABLET PO SCH (09:36)
[2021-12-07 11:19] LABS: RBC 3.69 M/mm3 (4.00-5.60)
[2021-12-07 11:20] LABS: BASO % 0.3 % (0-2.0); EOS % 2.8 % (0-4.5); HEMATOCRIT 32.2 % (35.4-49); HEMOGLOBIN 10.5 GM/dL (11.7-16.9); LYMPH % 21.2 % (8-40); MCH 28.4 pg (25.7-33.7); MCHC 32.6 g/dl (32.0-35.9); MEAN CELL VOLUME 87.3 fl (80-96); MEAN PLT VOLUME 8.9 fl (7.5-11.1); MONO % 13.1 % (3.8-10.2); NEUT % 62.6 % (42.8-82.8); PLATELET COUNT 123 10^3/uL (134-434); RDW 16.9 % (11.9-15.9)
[2021-12-07 11:36] LABS: CALCIUM 8.6 mg/dL (8.5-10.1)
[2021-12-07 11:40] LABS: BILIRUBIN,TOTAL 0.9 mg/dL (0.2-1); TOT PROT 6.8 g/dl (6.4-8.2)
[2021-12-07] MEDS: RIVAROXABAN 20 MG TABLET PO SCH (17:13)
[2021-12-07] MEDS: ATORVASTATIN CA 40 MG TABLET (FP) PO SCH (21:34)
[2021-12-08] MEDS ORDERED: MEROPENEM 1 GM VIAL (RESTRICTED TO ID) IVPB ONE ×3 (00:37→16:59)
[2021-12-08] MEDS ORDERED: DEXTROSE 5%-WATER 100 ML IVPB ONE ×3 (00:38→16:59)
[2021-12-08] MEDS: MEROPENEM 1 GM in DEXTROSE 5%-WATER 100 ML IVPB SCH ×3 (02:45→17:14)
[2021-12-08] MEDS: MESALAMINE 800 MG TABLET.DR PO SCH ×3 (06:42→23:00)
[2021-12-08] MEDS: VALSARTAN 40 MG TABLET PO SCH (09:39)
[2021-12-08] MEDS: metoPROLOL SUCCINATE 25 MG TAB.SR.24H (FP) PO SCH ×2 (10:08→23:00)
[2021-12-08] MEDS: RIVAROXABAN 20 MG TABLET PO SCH (17:15)
[2021-12-08] MEDS: ATORVASTATIN CA 40 MG TABLET (FP) PO SCH (23:00)
[2021-12-09] MEDS ORDERED: MEROPENEM 1 GM VIAL (RESTRICTED TO ID) IVPB ONE ×2 (03:22→09:59)
[2021-12-09] MEDS ORDERED: DEXTROSE 5%-WATER 100 ML IVPB ONE ×2 (03:22→09:59)
[2021-12-09] MEDS: MEROPENEM 1 GM in DEXTROSE 5%-WATER 100 ML IVPB SCH ×2 (03:23→10:00)
[2021-12-09] MEDS: MESALAMINE 800 MG TABLET.DR PO SCH ×3 (07:00→21:40)
[2021-12-09] MEDS: metoPROLOL SUCCINATE 25 MG TAB.SR.24H (FP) PO SCH ×2 (10:00→21:40)
[2021-12-09] MEDS: ERTAPENEM SODIUM 1 GM in SODIUM CHLORIDE 50 ML IVPB SCH (15:01)
[2021-12-09] MEDS: RIVAROXABAN 20 MG TABLET PO SCH (17:52)
[2021-12-09] MEDS: ATORVASTATIN CA 40 MG TABLET (FP) PO SCH (21:40)
[2021-12-10] MEDS: MESALAMINE 800 MG TABLET.DR PO SCH ×3 (06:19→21:27)
[2021-12-10 06:45] LABS: HEMATOCRIT 33.3 % (35.4-49); HEMOGLOBIN 10.8 GM/dL (11.7-16.9); MCHC 32.4 g/dl (32.0-35.9); MEAN CELL VOLUME 86.6 fl (80-96); PLATELET COUNT 134 10^3/uL (134-434); RBC 3.85 M/mm3 (4.00-5.60); RDW 17.2 % (11.9-15.9); WHITE BLOOD COUNT 3.7 K/mm3 (4.0-10.0)
[2021-12-10 07:07] LABS: CALCIUM 8.4 mg/dL (8.5-10.1)
[2021-12-10 07:08] LABS: BLOOD UREA NITROGEN 17.3 mg/dL (7-18)
[2021-12-10 07:12] LABS: BILIRUBIN,TOTAL 0.6 mg/dL (0.2-1); TOT PROT 6.7 g/dl (6.4-8.2)
[2021-12-10] MEDS: metoPROLOL SUCCINATE 25 MG TAB.SR.24H (FP) PO SCH ×2 (09:57→21:28)
[2021-12-10] MEDS: ERTAPENEM SODIUM 1 GM in SODIUM CHLORIDE 50 ML IVPB SCH (09:57)
[2021-12-10] MEDS: RIVAROXABAN 20 MG TABLET PO SCH (18:27)
[2021-12-10] MEDS: ATORVASTATIN CA 40 MG TABLET (FP) PO SCH (21:27)
[2021-12-11] MEDS: MESALAMINE 800 MG TABLET.DR PO SCH ×3 (06:14→21:38)
[2021-12-11] MEDS: ERTAPENEM SODIUM 1 GM in SODIUM CHLORIDE 50 ML IVPB SCH (09:33)
[2021-12-11] MEDS: metoPROLOL SUCCINATE 25 MG TAB.SR.24H (FP) PO SCH ×2 (09:35→21:38)
[2021-12-11] MEDS ORDERED: SODIUM CHLORIDE 0.45%/POT 20 MEQ/1,000 ML INFUS.BAG IV SCH (14:00)
[2021-12-11] MEDS: RIVAROXABAN 20 MG TABLET PO SCH (18:51)
[2021-12-11] MEDS: ATORVASTATIN CA 40 MG TABLET (FP) PO SCH (21:38)
[2021-12-12] MEDS: MESALAMINE 800 MG TABLET.DR PO SCH ×2 (06:13→14:55)
[2021-12-12 07:04] LABS: CALCIUM 8.6 mg/dL (8.5-10.1)
[2021-12-12 07:05] LABS: BLOOD UREA NITROGEN 19.3 mg/dL (7-18); MAGNESIUM 2.1 mg/dL (1.8-2.4)
[2021-12-12 07:08] LABS: CREATININE 0.8 mg/dL (0.55-1.3)
[2021-12-12 07:10] LABS: BILIRUBIN,TOTAL 0.4 mg/dL (0.2-1); TOT PROT 6.4 g/dl (6.4-8.2)
[2021-12-12] MEDS: ERTAPENEM SODIUM 1 GM in SODIUM CHLORIDE 50 ML IVPB SCH (10:04)
[2021-12-12] MEDS: metoPROLOL SUCCINATE 25 MG TAB.SR.24H (FP) PO SCH (10:04)
[2021-12-12 16:29] VITALS: BP 117/63; PULSE 68; TEMP 98.2
[2021-12-12] MEDS: RIVAROXABAN 20 MG TABLET PO SCH (17:57)
== END 2021-12-12 18:45 | DRG 699 ==
LOC: JER 13:35 → JERBED 16:33 → J2W 12-05 02:26
PROVIDERS: ADMIT Family Medicine; ATTEND Family Medicine
DX: T83.598A Infection and inflammatory reaction due to other prosthetic device, implant and graft in urinary system, initial encounter (principal); N13.6 Pyonephrosis; D61.818 Other pancytopenia; N40.0 Benign prostatic hyperplasia without lower urinary tract symptoms; E11.9 Type 2 diabetes mellitus without complications; E78.5 Hyperlipidemia, unspecified; I48.91 Unspecified atrial fibrillation; D64.9 Anemia, unspecified; R55 Syncope and collapse; K58.9 Irritable bowel syndrome, unspecified; R26.81 Unsteadiness on feet; I25.10 Atherosclerotic heart disease of native coronary artery without angina pectoris; R94.31 Abnormal electrocardiogram [ECG] [EKG]; I48.0 Paroxysmal atrial fibrillation; I12.9 Hypertensive chronic kidney disease with stage 1 through stage 4 chronic kidney disease, or unspecified chronic kidney disease; N18.9 Chronic kidney disease, unspecified; B96.1 Klebsiella pneumoniae [K. pneumoniae] as the cause of diseases classified elsewhere; Y83.8 Other surgical procedures as the cause of abnormal reaction of the patient, or of later complication, without mention of misadventure at the time of the procedure; E66.9 Obesity, unspecified; Z85.51 Personal history of malignant neoplasm of bladder; Z85.46 Personal history of malignant neoplasm of prostate; Z86.73 Personal history of transient ischemic attack (TIA), and cerebral infarction without residual deficits; Z98.890 Other specified postprocedural states; Z68.30 Body mass index [BMI] 30.0-30.9, adult
CPT/HCPCS: 36415; 36569; 70450-TC; 71045-TC-FY; 74178-TC; 80053; 80061; 81003; 82140; 82962; 83036; 83735; 84443; 84484; 85025; 85027; 87040; 87086; 87186; 93005; 93010; 93225; 93226; 97116-GP; 97161-GP; 99285-25; C9803-CS; J3480; U0003; U0005

== ENCOUNTER 2022-04-09 12:42 | Inpatient (IN) | payer OTHER, MEDICARE ==
[2022-04-09 15:20] LABS: HEMATOCRIT 35.6 % (35.4-49); HEMOGLOBIN 11.4 GM/dL (11.7-16.9); MCH 29.5 pg (25.7-33.7); MCHC 31.9 g/dl (32.0-35.9); MEAN CELL VOLUME 92.4 fl (80-96); MEAN PLT VOLUME 9.3 fl (7.5-11.1); PLATELET COUNT 133 10^3/uL (134-434); RBC 3.86 M/mm3 (4.00-5.60); RDW 18.1 % (11.9-15.9); WHITE BLOOD COUNT 3.8 K/mm3 (4.0-10.0)
[2022-04-09 15:34] LABS: BLOOD UREA NITROGEN 16.1 mg/dL (7-18)
[2022-04-09 15:35] LABS: ALBUMIN 3.8 g/dl (3.4-5.0)
[2022-04-09 15:39] LABS: BILIRUBIN,TOTAL 0.5 mg/dL (0.2-1); TOT PROT 7.2 g/dl (6.4-8.2)
[2022-04-09 16:07] LABS: EPI CELLS 2 /uL (0-25.1); HYALINE CASTS 102 /uL (0-3.1); URINE APPEARANCE CLEAR; URINE BACTERIA >9,000 /uL (0-1359); URINE BILIRUBIN NEGATIVE (NEGATIVE); URINE COLOR YELLOW; URINE GLUCOSE (UA) NEGATIVE (NEGATIVE); URINE KETONE NEGATIVE (NEGATIVE); URINE LEUK ESTERASE 2+ (NEGATIVE); URINE NITRITE POSITIVE (NEGATIVE); URINE PROTEIN NEGATIVE (NEGATIVE); URINE RBC 24 /uL (0-23.9); URINE UROBILINOGEN 0.2 mg/dL (0.2-1.0); URINE WBC 454 /uL (0-25.8)
[2022-04-09] MEDS ORDERED: MEROPENEM 1 GM in DEXTROSE 5%-WATER 100 ML IVPB ONE (16:25)
[2022-04-09] MEDS ORDERED: ACETAMINOPHEN 325 MG TABLET (FP) PO PRN (16:30)
[2022-04-09] MEDS ORDERED: MEROPENEM 1 GM VIAL (RESTRICTED TO ID) IVPB ONE (16:33)
[2022-04-09] MEDS: RIVAROXABAN 20 MG TABLET PO SCH (18:30)
[2022-04-09] MEDS: MESALAMINE 800 MG TABLET.DR PO SCH (22:29)
[2022-04-09] MEDS: ATORVASTATIN CA 40 MG TABLET (FP) PO SCH (22:29)
[2022-04-10 05:27] VITALS: BMI 31.3
[2022-04-10] MEDS: MESALAMINE 800 MG TABLET.DR PO SCH ×3 (06:50→22:33)
[2022-04-10 10:02] LABS: HEMATOCRIT 37.1 % (35.4-49); MCH 29.8 pg (25.7-33.7); MCHC 32.3 g/dl (32.0-35.9); MEAN CELL VOLUME 92.3 fl (80-96); MEAN PLT VOLUME 9.1 fl (7.5-11.1); PLATELET COUNT 148 10^3/uL (134-434); RBC 4.02 M/mm3 (4.00-5.60); RDW 18.4 % (11.9-15.9); WHITE BLOOD COUNT 4.2 K/mm3 (4.0-10.0)
[2022-04-10 10:19] LABS: CALCIUM 9.2 mg/dL (8.5-10.1)
[2022-04-10 10:20] LABS: ALBUMIN 3.8 g/dl (3.4-5.0); BLOOD UREA NITROGEN 17.9 mg/dL (7-18)
[2022-04-10 10:22] LABS: CREATININE 1.2 mg/dL (0.55-1.3)
[2022-04-10 10:24] LABS: BILIRUBIN,TOTAL 0.7 mg/dL (0.2-1); TOT PROT 7.2 g/dl (6.4-8.2)
[2022-04-10] MEDS: ERTAPENEM SODIUM 1 GM in SODIUM CHLORIDE 50 ML IVPB SCH (11:12)
[2022-04-10] MEDS: VALSARTAN 80 MG TABLET PO SCH (11:13)
[2022-04-10] MEDS ORDERED: SODIUM CHLORIDE 0.45% 1,000 ML IV SCH (13:15)
[2022-04-10] MEDS: RIVAROXABAN 20 MG TABLET PO SCH (19:33)
[2022-04-10] MEDS: ATORVASTATIN CA 40 MG TABLET (FP) PO SCH (22:34)
[2022-04-11] MEDS: MESALAMINE 800 MG TABLET.DR PO SCH ×3 (06:51→21:46)
[2022-04-11] MEDS: VALSARTAN 80 MG TABLET PO SCH (10:11)
[2022-04-11] MEDS: metoPROLOL SUCCINATE 25 MG TAB.SR.24H (FP) PO SCH (10:11)
[2022-04-11] MEDS: ERTAPENEM SODIUM 1 GM in SODIUM CHLORIDE 50 ML IVPB SCH (10:28)
[2022-04-11 10:57] LABS: CALCIUM 8.8 mg/dL (8.5-10.1)
[2022-04-11 10:58] LABS: ALBUMIN 3.4 g/dl (3.4-5.0); BLOOD UREA NITROGEN 17.2 mg/dL (7-18)
[2022-04-11 11:01] LABS: CREATININE 1.1 mg/dL (0.55-1.3)
[2022-04-11 11:02] LABS: BILIRUBIN,TOTAL 0.6 mg/dL (0.2-1); TOT PROT 6.6 g/dl (6.4-8.2)
[2022-04-11] MEDS: RIVAROXABAN 20 MG TABLET PO SCH (17:07)
[2022-04-11] MEDS: ATORVASTATIN CA 40 MG TABLET (FP) PO SCH (21:46)
[2022-04-12] MEDS: MESALAMINE 800 MG TABLET.DR PO SCH (06:11)
[2022-04-12 10:34] VITALS: BP 134/72; PULSE 65; RESP 18; TEMP 97.8
[2022-04-12] MEDS: metoPROLOL SUCCINATE 25 MG TAB.SR.24H (FP) PO SCH (10:35)
[2022-04-12] MEDS: VALSARTAN 80 MG TABLET PO SCH (10:35)
[2022-04-12] MEDS: ERTAPENEM SODIUM 1 GM in SODIUM CHLORIDE 50 ML IVPB SCH (11:44)
== END 2022-04-12 13:30 | disposition home or self-care (01) | DRG 690 ==
LOC: JER 12:42 → JERBED 16:24 → J8W 19:23
PROVIDERS: ADMIT Family Medicine; ATTEND Family Medicine
DX: N39.0 Urinary tract infection, site not specified (principal); D61.818 Other pancytopenia; R78.81 Bacteremia; I10 Essential (primary) hypertension; E11.9 Type 2 diabetes mellitus without complications; N40.0 Benign prostatic hyperplasia without lower urinary tract symptoms; E78.00 Pure hypercholesterolemia, unspecified; I48.91 Unspecified atrial fibrillation; K58.9 Irritable bowel syndrome, unspecified; R53.81 Other malaise; D69.6 Thrombocytopenia, unspecified; D64.9 Anemia, unspecified; Z85.51 Personal history of malignant neoplasm of bladder; Z85.46 Personal history of malignant neoplasm of prostate; Z86.73 Personal history of transient ischemic attack (TIA), and cerebral infarction without residual deficits; Z98.890 Other specified postprocedural states
CPT/HCPCS: 36415; 71045-TC-FY; 80053; 81003; 82728; 82962; 83036; 83540; 83550; 84466; 84484; 85027; 85045; 87040; 87086; 87186; 93005; 93010; 97116-GP; 97161-GP; 99285-25; C9803-CS; U0003; U0005

== ENCOUNTER 2022-05-13 04:41 | Day surgery (SDC) | payer OTHER, MEDICARE ==
[2022-05-07 18:05] VITALS: BMI 31.3
[2022-05-13 10:11] VITALS: RESP 20; TEMP 97.8
[2022-05-13 10:13] VITALS: BP 132/82; PULSE 58
== END 2022-05-13 09:20 | disposition home or self-care (01) ==
LOC: JASU-SURG 04:41 → EDSTATUS 07:30 → JASU-SURG 09:20
PROVIDERS: ATTEND Internal Medicine
PROC: 0JPT02Z Removal of Monitoring Device from Trunk Subcutaneous Tissue and Fascia, Open Approach (ICD-10-PCS; principal; 2022-05-13 07:30)
DX: I48.91 Unspecified atrial fibrillation (principal)
CPT/HCPCS: 82962; 88300-TC

== ENCOUNTER 2022-07-08 13:07 | Emergency (ER) | payer OTHER, MEDICARE ==
[2022-07-08 13:16] VITALS: RESP 20; BMI 31.9
[2022-07-08 15:39] VITALS: BP 123/95; PULSE 72; TEMP 97.5
[2022-07-08 16:36] LABS: BASO % 0.8 % (0-2.0); EOS % 1.3 % (0-4.5); HEMATOCRIT 40.8 % (35.4-49); HEMOGLOBIN 13.5 GM/dL (11.7-16.9); LYMPH % 33.1 % (8-40); MCH 29.6 pg (25.7-33.7); MEAN CELL VOLUME 89.5 fl (80-96); NEUT % 59.8 % (42.8-82.8); PLATELET COUNT 154 10^3/uL (134-434); RBC 4.55 M/mm3 (4.00-5.60); RDW 15.5 % (11.9-15.9); WHITE BLOOD COUNT 4.2 K/mm3 (4.0-10.0)
[2022-07-08 16:42] LABS: INR 1.55 (0.83-1.09); PROTHROMBIN TIME (PATIENT) 17.9 SEC (9.7-13.0)
[2022-07-08 16:52] LABS: BLOOD UREA NITROGEN 18.3 mg/dL (7-18)
[2022-07-08 16:53] LABS: ALBUMIN 4.2 g/dl (3.4-5.0); CALCIUM 9.5 mg/dL (8.5-10.1)
[2022-07-08 16:56] LABS: CREATININE 1.2 mg/dL (0.55-1.3)
[2022-07-08 16:58] LABS: BILIRUBIN,TOTAL 0.5 mg/dL (0.2-1); TOT PROT 8.2 g/dl (6.4-8.2)
== END 2022-07-08 17:30 | disposition home or self-care (01) ==
LOC: SUPCPDRO 13:07 → JER 13:07
DX: R53.81 Other malaise (principal)
CPT/HCPCS: 0241U-QW; 36415; 71045-TC-FY; 80053; 84484; 85025; 85610; 85730; 93005; 93010; 99285-25

== ENCOUNTER 2022-07-29 10:06 | Inpatient (IN) | payer OTHER, MEDICARE ==
[2022-07-29] MEDS ORDERED: METOPROLOL TARTRATE 5 MG/5 ML VIAL IVPUSH ONE ×2 (11:41→13:57)
[2022-07-29] MEDS ORDERED: METOPROLOL TARTRATE 25 MG TABLET (FP) PO ONE (11:44)
[2022-07-29] MEDS ORDERED: METOPROLOL TARTRATE 25 MG TABLET (FP) ONE (11:50)
[2022-07-29] MEDS ORDERED: METOPROLOL TARTRATE 5 MG/5 ML VIAL ONE ×3 (11:50→22:21)
[2022-07-29 12:33] LABS: BASO % 0.5 % (0-2.0); EOS % 0.9 % (0-4.5); HEMATOCRIT 35.3 % (35.4-49); LYMPH % 18.8 % (8-40); MCH 30.7 pg (25.7-33.7); MCHC 33.9 g/dl (32.0-35.9); MEAN CELL VOLUME 90.5 fl (80-96); MEAN PLT VOLUME 9.3 fl (7.5-11.1); MONO % 11.5 % (3.8-10.2); NEUT % 68.3 % (42.8-82.8); PLATELET COUNT 88 10^3/uL (134-434); RDW 18.3 % (11.9-15.9); WHITE BLOOD COUNT 2.3 K/mm3 (4.0-10.0)
[2022-07-29 12:45] LABS: INR 2.87 (0.83-1.09)
[2022-07-29 12:47] LABS: ACTIVATED PTT 46.9 SECONDS (25.2-36.5)
[2022-07-29 12:52] LABS: ALBUMIN 3.6 g/dl (3.4-5.0); BLOOD UREA NITROGEN 17.9 mg/dL (7-18); CALCIUM 8.8 mg/dL (8.5-10.1)
[2022-07-29 12:55] LABS: CREATININE 1.5 mg/dL (0.55-1.3)
[2022-07-29 12:57] LABS: BILIRUBIN,TOTAL 1.4 mg/dL (0.2-1); TOT PROT 7.2 g/dl (6.4-8.2)
[2022-07-29] MEDS ORDERED: SODIUM CHLORIDE 0.9% 500 ML INFUS.BAG IV ONE (13:55)
[2022-07-29 15:02] LABS: EPI CELLS 2 /uL (0-25.1); HYALINE CASTS 54 /uL (0-3.1); PH,URINE 5.5 (5.0-8.0); URINE APPEARANCE CLOUDY; URINE BACTERIA 5829 /uL (0-1359); URINE BILIRUBIN NEGATIVE (NEGATIVE); URINE COLOR DK YELLOW; URINE GLUCOSE (UA) NEGATIVE (NEGATIVE); URINE KETONE TRACE (NEGATIVE); URINE LEUK ESTERASE 2+ (NEGATIVE); URINE NITRITE POSITIVE (NEGATIVE); URINE PROTEIN 2+ (NEGATIVE); URINE RBC 35 /uL (0-23.9); URINE WBC 695 /uL (0-25.8)
[2022-07-29] MEDS ORDERED: ERTAPENEM SODIUM 1 GM in SODIUM CHLORIDE 50 ML IVPB ONE (16:27)
[2022-07-29] MEDS: METOPROLOL TARTRATE 5 MG/5 ML VIAL IVPUSH PRN (22:26)
[2022-07-30] MEDS ORDERED: METOPROLOL TARTRATE 5 MG/5 ML VIAL ONE ×2 (02:22→04:34)
[2022-07-30] MEDS: METOPROLOL TARTRATE 5 MG/5 ML VIAL IVPUSH PRN ×2 (04:30→08:40)
[2022-07-30 04:37] LABS: BLOOD UREA NITROGEN 23.4 mg/dL (7-18); CALCIUM 8.2 mg/dL (8.5-10.1)
[2022-07-30 04:38] LABS: ALBUMIN 3.4 g/dl (3.4-5.0)
[2022-07-30 04:40] LABS: CREATININE 1.3 mg/dL (0.55-1.3)
[2022-07-30 04:42] LABS: BILIRUBIN,TOTAL 0.7 mg/dL (0.2-1); TOT PROT 6.5 g/dl (6.4-8.2)
[2022-07-30] MEDS ORDERED: DIGOXIN 0.5 MG/2 ML AMPUL IVPUSH ONE (08:00)
[2022-07-30 08:17] LABS: BASO % 0.6 % (0-2.0); HEMATOCRIT 34.3 % (35.4-49); HEMOGLOBIN 11.4 GM/dL (11.7-16.9); LYMPH % 27.7 % (8-40); MCH 30.3 pg (25.7-33.7); MCHC 33.3 g/dl (32.0-35.9); MEAN PLT VOLUME 9.6 fl (7.5-11.1); NEUT % 56.7 % (42.8-82.8); PLATELET COUNT 73 10^3/uL (134-434); RBC 3.77 M/mm3 (4.00-5.60); RDW 18.3 % (11.9-15.9); WHITE BLOOD COUNT 2.3 K/mm3 (4.0-10.0)
[2022-07-30] MEDS: RIVAROXABAN 20 MG TABLET PO SCH (09:24)
[2022-07-30] MEDS: ATORVASTATIN CA 40 MG TABLET (FP) PO SCH (09:32)
[2022-07-30] MEDS ORDERED: PYRIDOXINE HCL (B-6) 100 MG TABLET PO SCH (10:00)
[2022-07-30] MEDS: azaTHIOprine 50 MG TABLET PO SCH (10:21)
[2022-07-30] MEDS: MESALAMINE 800 MG TABLET.DR PO SCH (10:22)
[2022-07-30] MEDS: INSULIN SLIDING SCALE (NOVOLOG) 1 VIAL SQ SCH ×3 (12:23→21:42)
[2022-07-30] MEDS: dilTIAZem HCL 30 MG TABLET PO SCH ×3 (12:24→23:30)
[2022-07-30] MEDS: ERTAPENEM SODIUM 1 GM in SODIUM CHLORIDE 50 ML IVPB SCH (14:42)
[2022-07-31] MEDS: dilTIAZem HCL 30 MG TABLET PO SCH ×3 (05:04→17:07)
[2022-07-31] MEDS: INSULIN SLIDING SCALE (NOVOLOG) 1 VIAL SQ SCH ×4 (06:35→22:31)
[2022-07-31 08:07] LABS: BASO % 0.5 % (0-2.0); EOS % 4.7 % (0-4.5); HEMATOCRIT 33.3 % (35.4-49); HEMOGLOBIN 11.1 GM/dL (11.7-16.9); LYMPH % 28.9 % (8-40); MCH 30.4 pg (25.7-33.7); MCHC 33.5 g/dl (32.0-35.9); MEAN PLT VOLUME 9.3 fl (7.5-11.1); NEUT % 56.9 % (42.8-82.8); PLATELET COUNT 70 10^3/uL (134-434); RBC 3.66 M/mm3 (4.00-5.60); RDW 18.5 % (11.9-15.9)
[2022-07-31 09:03] LABS: CALCIUM 8.3 mg/dL (8.5-10.1)
[2022-07-31 09:04] LABS: ALBUMIN 3.2 g/dl (3.4-5.0); BLOOD UREA NITROGEN 22.3 mg/dL (7-18)
[2022-07-31 09:08] LABS: BILIRUBIN,TOTAL 0.7 mg/dL (0.2-1); TOT PROT 6.2 g/dl (6.4-8.2)
[2022-07-31] MEDS: ERTAPENEM SODIUM 1 GM in SODIUM CHLORIDE 50 ML IVPB SCH (09:20)
[2022-07-31] MEDS: ATORVASTATIN CA 40 MG TABLET (FP) PO SCH (09:20)
[2022-07-31] MEDS: MESALAMINE 800 MG TABLET.DR PO SCH (09:21)
[2022-07-31] MEDS: RIVAROXABAN 20 MG TABLET PO SCH (09:21)
[2022-07-31] MEDS: PYRIDOXINE HCL (B-6) 50 MG TABLET (FP) PO SCH (09:22)
[2022-07-31] MEDS: azaTHIOprine 50 MG TABLET PO SCH (09:22)
[2022-07-31] MEDS: METOPROLOL TARTRATE 5 MG/5 ML VIAL IVPUSH PRN (21:16)
[2022-08-01] MEDS: METOPROLOL TARTRATE 5 MG/5 ML VIAL IVPUSH PRN ×3 (04:00→12:32)
[2022-08-01] MEDS: dilTIAZem HCL 30 MG TABLET PO SCH ×2 (05:31)
[2022-08-01] MEDS: INSULIN SLIDING SCALE (NOVOLOG) 1 VIAL SQ SCH ×3 (08:15→17:18)
[2022-08-01 08:18] LABS: ALBUMIN 3.2 g/dl (3.4-5.0); BASO % 0.6 % (0-2.0); CALCIUM 8.1 mg/dL (8.5-10.1); EOS % 3.1 % (0-4.5); HEMATOCRIT 35.4 % (35.4-49); HEMOGLOBIN 11.7 GM/dL (11.7-16.9); LYMPH % 30.9 % (8-40); MCHC 33.1 g/dl (32.0-35.9); MEAN CELL VOLUME 90.6 fl (80-96); MEAN PLT VOLUME 9.3 fl (7.5-11.1); MONO % 10.1 % (3.8-10.2); NEUT % 55.3 % (42.8-82.8); PLATELET COUNT 92 10^3/uL (134-434); RBC 3.91 M/mm3 (4.00-5.60); RDW 18.2 % (11.9-15.9); WHITE BLOOD COUNT 2.5 K/mm3 (4.0-10.0)
[2022-08-01 08:19] LABS: BLOOD UREA NITROGEN 19.6 mg/dL (7-18)
[2022-08-01 08:22] LABS: TOT PROT 6.6 g/dl (6.4-8.2)
[2022-08-01 08:24] LABS: BILIRUBIN,TOTAL 0.9 mg/dL (0.2-1)
[2022-08-01] MEDS: MESALAMINE 800 MG TABLET.DR PO SCH (09:15)
[2022-08-01] MEDS: azaTHIOprine 50 MG TABLET PO SCH (09:15)
[2022-08-01] MEDS: ERTAPENEM SODIUM 1 GM in SODIUM CHLORIDE 50 ML IVPB SCH (09:16)
[2022-08-01] MEDS: PYRIDOXINE HCL (B-6) 50 MG TABLET (FP) PO SCH (09:16)
[2022-08-01] MEDS: ATORVASTATIN CA 40 MG TABLET (FP) PO SCH (09:16)
[2022-08-01] MEDS: RIVAROXABAN 20 MG TABLET PO SCH (09:16)
[2022-08-01 09:18] LABS: RETICULOCYTES 1.89 % (0.5-1.5)
[2022-08-01] MEDS: dilTIAZem HCL 60 MG TABLET PO SCH ×2 (11:02→17:18)
[2022-08-01] MEDS ORDERED: METOPROLOL TARTRATE 5 MG/5 ML VIAL IVPUSH PRN (13:03)
[2022-08-02] MEDS: INSULIN SLIDING SCALE (NOVOLOG) 1 VIAL SQ SCH ×5 (00:33→21:37)
[2022-08-02] MEDS: dilTIAZem HCL 60 MG TABLET PO SCH ×2 (00:34→06:46)
[2022-08-02] MEDS: ERTAPENEM SODIUM 1 GM in SODIUM CHLORIDE 50 ML IVPB SCH (09:40)
[2022-08-02] MEDS: PYRIDOXINE HCL (B-6) 50 MG TABLET (FP) PO SCH (09:48)
[2022-08-02] MEDS: RIVAROXABAN 20 MG TABLET PO SCH (09:48)
[2022-08-02] MEDS: ATORVASTATIN CA 40 MG TABLET (FP) PO SCH (09:48)
[2022-08-02] MEDS: MESALAMINE 800 MG TABLET.DR PO SCH (09:48)
[2022-08-02] MEDS: azaTHIOprine 50 MG TABLET PO SCH (09:49)
[2022-08-03] MEDS: INSULIN SLIDING SCALE (NOVOLOG) 1 VIAL SQ SCH ×4 (06:41→21:17)
[2022-08-03] MEDS: azaTHIOprine 50 MG TABLET PO SCH (10:09)
[2022-08-03] MEDS: ATORVASTATIN CA 40 MG TABLET (FP) PO SCH (10:09)
[2022-08-03] MEDS: ERTAPENEM SODIUM 1 GM in SODIUM CHLORIDE 50 ML IVPB SCH (10:09)
[2022-08-03] MEDS: RIVAROXABAN 20 MG TABLET PO SCH (10:09)
[2022-08-03] MEDS: PYRIDOXINE HCL (B-6) 50 MG TABLET (FP) PO SCH (10:09)
[2022-08-03] MEDS: MESALAMINE 800 MG TABLET.DR PO SCH (10:09)
[2022-08-03 10:58] LABS: CALCIUM 8.5 mg/dL (8.5-10.1)
[2022-08-03 10:59] LABS: BLOOD UREA NITROGEN 22.8 mg/dL (7-18)
[2022-08-04] MEDS: INSULIN SLIDING SCALE (NOVOLOG) 1 VIAL SQ SCH ×4 (06:14→22:23)
[2022-08-04] MEDS: RIVAROXABAN 20 MG TABLET PO SCH (10:01)
[2022-08-04] MEDS: ATORVASTATIN CA 40 MG TABLET (FP) PO SCH (10:01)
[2022-08-04] MEDS: PYRIDOXINE HCL (B-6) 50 MG TABLET (FP) PO SCH (10:01)
[2022-08-04] MEDS: MESALAMINE 800 MG TABLET.DR PO SCH (10:02)
[2022-08-04] MEDS: azaTHIOprine 50 MG TABLET PO SCH (10:02)
[2022-08-04] MEDS: ERTAPENEM SODIUM 1 GM in SODIUM CHLORIDE 50 ML IVPB SCH (10:03)
[2022-08-05] MEDS: INSULIN SLIDING SCALE (NOVOLOG) 1 VIAL SQ SCH ×4 (06:27→21:03)
[2022-08-05 07:42] LABS: HEMATOCRIT 34.5 % (35.4-49); HEMOGLOBIN 11.4 GM/dL (11.7-16.9); MCH 29.8 pg (25.7-33.7); MCHC 33.1 g/dl (32.0-35.9); MEAN CELL VOLUME 90.3 fl (80-96); MEAN PLT VOLUME 9.2 fl (7.5-11.1); PLATELET COUNT 116 10^3/uL (134-434); RBC 3.82 M/mm3 (4.00-5.60); RDW 17.8 % (11.9-15.9); WHITE BLOOD COUNT 2.7 K/mm3 (4.0-10.0)
[2022-08-05 08:20] LABS: CALCIUM 8.6 mg/dL (8.5-10.1)
[2022-08-05 08:24] LABS: CREATININE 1.1 mg/dL (0.55-1.3)
[2022-08-05] MEDS: PYRIDOXINE HCL (B-6) 50 MG TABLET (FP) PO SCH (10:06)
[2022-08-05] MEDS: RIVAROXABAN 20 MG TABLET PO SCH (10:06)
[2022-08-05] MEDS: ATORVASTATIN CA 40 MG TABLET (FP) PO SCH (10:07)
[2022-08-05] MEDS: azaTHIOprine 50 MG TABLET PO SCH (10:07)
[2022-08-05] MEDS: MESALAMINE 800 MG TABLET.DR PO SCH (10:07)
[2022-08-05 10:46] VITALS: RESP 20
[2022-08-05 13:05] VITALS: BMI 32.2
[2022-08-06] MEDS: INSULIN SLIDING SCALE (NOVOLOG) 1 VIAL SQ SCH ×2 (06:26→11:38)
[2022-08-06] MEDS: ATORVASTATIN CA 40 MG TABLET (FP) PO SCH (09:04)
[2022-08-06] MEDS: RIVAROXABAN 20 MG TABLET PO SCH (09:04)
[2022-08-06] MEDS: azaTHIOprine 50 MG TABLET PO SCH (09:05)
[2022-08-06] MEDS: MESALAMINE 800 MG TABLET.DR PO SCH (09:05)
[2022-08-06] MEDS: PYRIDOXINE HCL (B-6) 50 MG TABLET (FP) PO SCH (09:05)
[2022-08-06 11:31] VITALS: BP 126/74; PULSE 19; TEMP 98
== END 2022-08-06 12:08 | disposition home or self-care (01) | DRG 690 ==
LOC: JER 10:06 → JERBED 14:17 → OBSVTOIN 15:39 → J2W 07-30 05:30 → J4W 08-02 11:01
PROVIDERS: ADMIT Family Medicine; ATTEND Family Medicine
DX: N39.0 Urinary tract infection, site not specified (principal); I10 Essential (primary) hypertension; E78.5 Hyperlipidemia, unspecified; D69.6 Thrombocytopenia, unspecified; D72.819 Decreased white blood cell count, unspecified; I48.0 Paroxysmal atrial fibrillation; R16.1 Splenomegaly, not elsewhere classified; D63.8 Anemia in other chronic diseases classified elsewhere; R00.0 Tachycardia, unspecified; Z79.01 Long term (current) use of anticoagulants; Z86.73 Personal history of transient ischemic attack (TIA), and cerebral infarction without residual deficits; E11.9 Type 2 diabetes mellitus without complications; Z85.51 Personal history of malignant neoplasm of bladder; R94.31 Abnormal electrocardiogram [ECG] [EKG]; Z79.84 Long term (current) use of oral hypoglycemic drugs
CPT/HCPCS: 0241U-QW; 36415; 71045-TC-FY; 71250-TC; 80048; 80053; 81003; 82607; 82728; 82746; 82962; 83540; 83550; 83615; 83880; 84443; 84484; 85025; 85027; 85045; 85610; 85730; 87040; 87086; 87186; 93005; 93010; 94010; 94761; 97116-GP; 97162-GP; 99285-25; G0378

== ENCOUNTER 2022-10-29 14:30 | Inpatient (IN) | payer OTHER, MEDICARE ==
[2022-10-29] MEDS ORDERED: ACETAMINOPHEN INJECTION 100 ML IVPB ONE (15:02)
[2022-10-29] MEDS ORDERED: ACETAMINOPHEN 1000 MG/100 ML BAG IVPB ONE (15:20)
[2022-10-29] MEDS ORDERED: PIPERACILLIN/TAZOB 4.5 GM 4.5 GM in DEXTROSE 5%-WATER 100 ML IVPB ONE (15:20)
[2022-10-29] MEDS ORDERED: SODIUM CHLORIDE 1,000 ML IV ONE (15:20)
[2022-10-29] MEDS ORDERED: PIPERACILLIN/TAZOB 4.5 GM 4.5 GM/100 ML BAG IVPB ONE ×2 (15:25→15:58)
[2022-10-29 15:29] LABS: BASO % 0.4 % (0-2.0); EOS % 0.4 % (0-4.5); HEMATOCRIT 35.3 % (35.4-49); HEMOGLOBIN 11.6 GM/dL (11.7-16.9); LYMPH % 24.5 % (8-40); MCH 30.2 pg (25.7-33.7); MCHC 32.9 g/dl (32.0-35.9); MEAN CELL VOLUME 91.9 fl (80-96); MEAN PLT VOLUME 10.9 fl (7.5-11.1); MONO % 7.8 % (3.8-10.2); NEUT % 66.9 % (42.8-82.8); PLATELET COUNT 85 10^3/uL (134-434); RBC 3.85 M/mm3 (4.00-5.60); RDW 18.6 % (11.9-15.9); WHITE BLOOD COUNT 2.3 K/mm3 (4.0-10.0)
[2022-10-29 15:36] LABS: INR 3.14 (0.83-1.09); VENOUS BASE EXCESS 2.2 mmol/L (-2-2); VENOUS O2 SATURATION 25.1 % (70-80); VENOUS PCO2 46.9 mmHg (38-52); VENOUS PH 7.39 (7.310-7.410)
[2022-10-29] MEDS ORDERED: ACETAMINOPHEN 325 MG TABLET (FP) PO PRN (15:36)
[2022-10-29 15:38] LABS: ACTIVATED PTT 50.4 SECONDS (25.2-36.5)
[2022-10-29 15:52] LABS: POTASSIUM 4.2 mmol/L (3.5-5.1)
[2022-10-29 15:54] LABS: ALBUMIN 3.9 g/dl (3.4-5.0); BLOOD UREA NITROGEN 23.4 mg/dL (7-18); CALCIUM 8.8 mg/dL (8.5-10.1)
[2022-10-29 15:57] LABS: CREATININE 1.5 mg/dL (0.55-1.3)
[2022-10-29 15:59] LABS: BILIRUBIN,TOTAL 1.6 mg/dL (0.2-1); TOT PROT 7.8 g/dl (6.4-8.2)
[2022-10-29] MEDS ORDERED: SODIUM CHLORIDE 500 ML IV STA (16:10)
[2022-10-29 16:57] LABS: EPI CELLS 4 /uL (0-25.1); HYALINE CASTS 0 /uL (0-3.1); PH,URINE 5.5 (5.0-8.0); URINE APPEARANCE CLOUDY; URINE BACTERIA >9,000 /uL (0-1359); URINE BILIRUBIN NEGATIVE (NEGATIVE); URINE COLOR YELLOW; URINE GLUCOSE (UA) NEGATIVE (NEGATIVE); URINE KETONE NEGATIVE (NEGATIVE); URINE LEUK ESTERASE 3+ (NEGATIVE); URINE NITRITE POSITIVE (NEGATIVE); URINE PROTEIN 2+ (NEGATIVE); URINE RBC 105 /uL (0-23.9); URINE WBC 2135 /uL (0-25.8)
[2022-10-29] MEDS ORDERED: dilTIAZem HCL 50 MG/10 ML - 10 ML VIAL IVPUSH ONE (17:15)
[2022-10-29] MEDS ORDERED: dilTIAZem HCL 125 MG/25 ML - 25 ML VIAL ONE ×2 (17:35→18:16)
[2022-10-29] MEDS: INSULIN SLIDING SCALE (NOVOLOG) 1 VIAL SQ SCH ×2 (17:41→22:10)
[2022-10-29] MEDS ORDERED: dilTIAZem HCL 30 MG TABLET PO ONE (18:31)
[2022-10-29] MEDS ORDERED: dilTIAZem HCL 50 MG/10 ML - 10 ML VIAL ONE (19:43)
[2022-10-29] MEDS: dilTIAZem HCL 50 MG/10 ML - 10 ML VIAL IVPUSH PRN (19:48)
[2022-10-29 20:50] VITALS: BMI 30.9
[2022-10-29] MEDS: ATORVASTATIN CA 40 MG TABLET (FP) PO SCH (22:09)
[2022-10-29] MEDS: MESALAMINE 800 MG TABLET.DR PO SCH (23:45)
[2022-10-30] MEDS: dilTIAZem HCL 50 MG/10 ML - 10 ML VIAL IVPUSH PRN ×2 (01:12→05:12)
[2022-10-30] MEDS: MESALAMINE 800 MG TABLET.DR PO SCH ×3 (06:21→21:16)
[2022-10-30] MEDS: INSULIN SLIDING SCALE (NOVOLOG) 1 VIAL SQ SCH ×4 (06:21→21:19)
[2022-10-30] MEDS ORDERED: SODIUM CHLORIDE 0.45% 1,000 ML IV SCH (07:15)
[2022-10-30 09:11] LABS: POTASSIUM 3.8 mmol/L (3.5-5.1)
[2022-10-30 09:14] LABS: ALBUMIN 3.2 g/dl (3.4-5.0); BLOOD UREA NITROGEN 19.5 mg/dL (7-18); CALCIUM 8.1 mg/dL (8.5-10.1)
[2022-10-30 09:17] LABS: BASO % 0.7 % (0-2.0); CREATININE 1.1 mg/dL (0.55-1.3); EOS % 1.6 % (0-4.5); HEMATOCRIT 29.5 % (35.4-49); HEMOGLOBIN 9.8 GM/dL (11.7-16.9); LYMPH % 27.6 % (8-40); MCH 30.5 pg (25.7-33.7); MCHC 33.3 g/dl (32.0-35.9); MEAN CELL VOLUME 91.7 fl (80-96); MEAN PLT VOLUME 10.2 fl (7.5-11.1); MONO % 11.6 % (3.8-10.2); NEUT % 58.5 % (42.8-82.8); PLATELET COUNT 65 10^3/uL (134-434); RBC 3.22 M/mm3 (4.00-5.60)
[2022-10-30 09:19] LABS: BILIRUBIN,TOTAL 1.1 mg/dL (0.2-1); TOT PROT 6.6 g/dl (6.4-8.2)
[2022-10-30] MEDS ORDERED: PIPERACILLIN/TAZOB 3.375 GM 3.375 GM in DEXTROSE 5%-WATER - 50 ML IVPB SCH (10:00)
[2022-10-30] MEDS: ERTAPENEM SODIUM 1 GM in SODIUM CHLORIDE 50 ML IVPB SCH (13:17)
[2022-10-30] MEDS: ATORVASTATIN CA 40 MG TABLET (FP) PO SCH (21:16)
[2022-10-31] MEDS: MESALAMINE 800 MG TABLET.DR PO SCH ×3 (06:20→21:56)
[2022-10-31] MEDS: INSULIN SLIDING SCALE (NOVOLOG) 1 VIAL SQ SCH ×4 (06:21→21:56)
[2022-10-31 06:26] LABS: BASO % 0.8 % (0-2.0); EOS % 4.3 % (0-4.5); HEMATOCRIT 29.2 % (35.4-49); MCH 31.7 pg (25.7-33.7); MCHC 34.1 g/dl (32.0-35.9); MEAN CELL VOLUME 92.9 fl (80-96); MEAN PLT VOLUME 11.1 fl (7.5-11.1); MONO % 9.1 % (3.8-10.2); NEUT % 44.8 % (42.8-82.8); PLATELET COUNT 62 10^3/uL (134-434); RBC 3.14 M/mm3 (4.00-5.60); WHITE BLOOD COUNT 2.1 K/mm3 (4.0-10.0)
[2022-10-31 06:40] LABS: POTASSIUM 4.2 mmol/L (3.5-5.1)
[2022-10-31 06:43] LABS: CALCIUM 8.2 mg/dL (8.5-10.1)
[2022-10-31 06:44] LABS: ALBUMIN 3.1 g/dl (3.4-5.0); BLOOD UREA NITROGEN 22.8 mg/dL (7-18)
[2022-10-31 06:48] LABS: TOT PROT 6.5 g/dl (6.4-8.2)
[2022-10-31 06:49] LABS: BILIRUBIN,TOTAL 0.6 mg/dL (0.2-1)
[2022-10-31] MEDS: ERTAPENEM SODIUM 1 GM in SODIUM CHLORIDE 50 ML IVPB SCH (10:39)
[2022-10-31] MEDS: ATORVASTATIN CA 40 MG TABLET (FP) PO SCH (21:56)
[2022-11-01] MEDS: MESALAMINE 800 MG TABLET.DR PO SCH ×2 (06:46→15:08)
[2022-11-01] MEDS: INSULIN SLIDING SCALE (NOVOLOG) 1 VIAL SQ SCH ×2 (06:47→11:09)
[2022-11-01 08:28] LABS: HEMATOCRIT 29.3 % (35.4-49); HEMOGLOBIN 9.9 GM/dL (11.7-16.9); MCH 31.2 pg (25.7-33.7); MCHC 33.7 g/dl (32.0-35.9); MEAN CELL VOLUME 92.6 fl (80-96); MEAN PLT VOLUME 11.3 fl (7.5-11.1); PLATELET COUNT 58 10^3/uL (134-434); RBC 3.17 M/mm3 (4.00-5.60)
[2022-11-01 08:34] LABS: WHITE BLOOD COUNT 1.9 K/mm3 (4.0-10.0)
[2022-11-01 09:05] LABS: ANISOCYTOSIS 1+; MACROCYTOSIS 0; PLATELET ESTIMATE DECREASED
[2022-11-01] MEDS: ERTAPENEM SODIUM 1 GM in SODIUM CHLORIDE 50 ML IVPB SCH (10:57)
[2022-11-01 15:53] VITALS: BP 108/61; PULSE 82; RESP 18; TEMP 98.4
== END 2022-11-01 16:52 | DRG 690 ==
LOC: JER 14:30 → JERBED 17:39 → J4W 20:30
PROVIDERS: ADMIT Family Medicine; ATTEND Family Medicine
DX: N39.0 Urinary tract infection, site not specified (principal); D61.818 Other pancytopenia; N17.9 Acute kidney failure, unspecified; E78.5 Hyperlipidemia, unspecified; I48.91 Unspecified atrial fibrillation; N40.0 Benign prostatic hyperplasia without lower urinary tract symptoms; K58.9 Irritable bowel syndrome, unspecified; I10 Essential (primary) hypertension; E11.9 Type 2 diabetes mellitus without complications; R50.9 Fever, unspecified; W18.30XA Fall on same level, unspecified, initial encounter; R94.31 Abnormal electrocardiogram [ECG] [EKG]; B96.20 Unspecified Escherichia coli [E. coli] as the cause of diseases classified elsewhere; R16.1 Splenomegaly, not elsewhere classified; D64.9 Anemia, unspecified; R53.1 Weakness; Z93.2 Ileostomy status; Z86.73 Personal history of transient ischemic attack (TIA), and cerebral infarction without residual deficits; Z85.51 Personal history of malignant neoplasm of bladder; Y92.89 Other specified places as the place of occurrence of the external cause; Y99.8 Other external cause status
CPT/HCPCS: 0241U-QW; 36415; 36569; 70450-TC; 71045-TC-FY; 77001-TC-FY; 80053; 81003; 82550; 82553; 82803; 82962; 83605; 84484; 85025; 85610; 85730; 86850; 86900; 86901; 87040; 87086; 87186; 88300-TC; 93005; 93010; 97116-GP; 97161-GP; 99291; C1751

== ENCOUNTER 2022-12-10 16:18 | Inpatient (IN) | payer OTHER, MEDICARE ==
[2022-12-10] MEDS ORDERED: dilTIAZem HCL 50 MG/10 ML - 10 ML VIAL IVPUSH ONE (16:49)
[2022-12-10] MEDS ORDERED: LACTATED RINGERS SOLUTION 1000 ML INFUS.BAG IV ONE (16:50)
[2022-12-10] MEDS ORDERED: VANCOMYCIN 1 GM in D5W (PRE-DOCKED) 1,000 MG/250 ML (RESTRICTED TO ID ONLY IVPB ONE (17:14)
[2022-12-10] MEDS ORDERED: PIPERACILLIN/TAZOB 4.5 GM 4.5 GM in DEXTROSE 5%-WATER 100 ML IVPB ONE (17:14)
[2022-12-10] MEDS ORDERED: PIPERACILLIN/TAZOB 4.5 GM 4.5 GM/100 ML BAG IVPB ONE (17:15)
[2022-12-10] MEDS ORDERED: ACETAMINOPHEN 1000 MG/100 ML BAG IVPB ONE (17:23)
[2022-12-10 17:25] LABS: VENOUS BASE EXCESS -0.1 mmol/L (-2-2); VENOUS O2 SATURATION 41.4 % (70-80); VENOUS PH 7.34 (7.310-7.410)
[2022-12-10 17:35] LABS: INR 2.55 (0.83-1.09); PROTHROMBIN TIME (PATIENT) 29.3 SEC (9.7-13.0)
[2022-12-10 17:37] LABS: ACTIVATED PTT 44.4 SECONDS (25.2-36.5)
[2022-12-10] MEDS ORDERED: VANCOMYCIN/WATER FOR INJ (PEG) 1,000 MG/200 ML BAG IVPB ONE (17:42)
[2022-12-10] MEDS ORDERED: ACETAMINOPHEN INJECTION 100 ML IVPB ONE (17:42)
[2022-12-10 17:44] LABS: BASO % 0.6 % (0-2.0); EOS % 0.8 % (0-4.5); HEMATOCRIT 36.9 % (35.4-49); HEMOGLOBIN 11.8 GM/dL (11.7-16.9); LYMPH % 19.4 % (8-40); MCH 30.2 pg (25.7-33.7); MEAN CELL VOLUME 94.3 fl (80-96); MEAN PLT VOLUME 11.2 fl (7.5-11.1); MONO % 11.7 % (3.8-10.2); NEUT % 67.5 % (42.8-82.8); PLATELET COUNT 100 10^3/uL (134-434); RBC 3.91 M/mm3 (4.00-5.60); RDW 18.1 % (11.9-15.9); WHITE BLOOD COUNT 2.9 K/mm3 (4.0-10.0)
[2022-12-10 17:47] LABS: POTASSIUM 4.5 mmol/L (3.5-5.1)
[2022-12-10 17:48] LABS: CALCIUM 9.2 mg/dL (8.5-10.1)
[2022-12-10 17:49] LABS: ALBUMIN 4.3 g/dl (3.4-5.0); MAGNESIUM 2.1 mg/dL (1.8-2.4)
[2022-12-10 17:52] LABS: CREATININE 1.2 mg/dL (0.55-1.3); PHOSPHOROUS 3.3 mg/dL (2.5-4.9)
[2022-12-10 17:54] LABS: BILIRUBIN,TOTAL 1.2 mg/dL (0.2-1); TOT PROT 8.1 g/dl (6.4-8.2)
[2022-12-10 18:04] LABS: LACTIC ACID 2.2 mmol/L (0.4-2.0)
[2022-12-10] MEDS ORDERED: dilTIAZem HCL 125 MG/25 ML - 25 ML VIAL ONE (18:13)
[2022-12-10 18:17] LABS: ANISOCYTOSIS 0; MACROCYTOSIS 0; OVALOCYTE 1+; PLATELET ESTIMATE DECREASED; TEAR DROP CELLS 1+
[2022-12-10 21:12] LABS: EPI CELLS 1 /uL (0-25.1); HYALINE CASTS 1 /uL (0-3.1); PH,URINE 5.5 (5.0-8.0); URINE APPEARANCE CLEAR; URINE BILIRUBIN NEGATIVE (NEGATIVE); URINE COLOR YELLOW; URINE GLUCOSE (UA) NEGATIVE (NEGATIVE); URINE KETONE NEGATIVE (NEGATIVE); URINE LEUK ESTERASE 1+ (NEGATIVE); URINE NITRITE POSITIVE (NEGATIVE); URINE PROTEIN 1+ (NEGATIVE); URINE RBC 27 /uL (0-23.9); URINE UROBILINOGEN 0.2 mg/dL (0.2-1.0); URINE WBC 221 /uL (0-25.8)
[2022-12-10] MEDS: DEXTROSE 5%-NORMAL SALINE 1,000 ML IV SCH (23:06)
[2022-12-10] MEDS: PIPERACILLIN/TAZOB 3.375 GM 3.375 GM in DEXTROSE 5%-WATER - 50 ML IVPB SCH (23:06)
[2022-12-10] MEDS ORDERED: ACETAMINOPHEN 1000 MG/100 ML BAG IVPB PRN (23:30)
[2022-12-10 23:41] LABS: URINE BACTERIA 537.6 /uL (0-1359)
[2022-12-10 23:57] VITALS: BMI 30.2
[2022-12-11] MEDS ORDERED: METOPROLOL TARTRATE 5 MG/5 ML VIAL IVPUSH ONE (02:00)
[2022-12-11] MEDS: PIPERACILLIN/TAZOB 3.375 GM 3.375 GM in DEXTROSE 5%-WATER - 50 ML IVPB SCH ×2 (03:06→09:28)
[2022-12-11] MEDS ORDERED: VANCOMYCIN/WATER 1,250 MG/250 ML BAG (RESTRICTED TO ID ONLY) IVPB SCH (06:00)
[2022-12-11] MEDS ORDERED: VANCOMYCIN/WATER 1250 MG 1,250 MG/250 ML BAG IVPB SCH (06:00)
[2022-12-11] MEDS ORDERED: INSULIN SLIDING SCALE (NOVOLOG) 1 VIAL SQ ONE (06:02)
[2022-12-11] MEDS ORDERED: INSULIN (NOVOLOG) ASPART 100 UNITS/ML 10ML VIAL SQ SCH (07:00)
[2022-12-11] MEDS ORDERED: INSULIN SLIDING SCALE (NOVOLOG) 1 VIAL SQ SCH (07:00)
[2022-12-11] MEDS: INSULIN SLIDING SCALE (NOVOLOG) 1 VIAL SQ SCH ×4 (07:03→23:02)
[2022-12-11 08:05] LABS: POTASSIUM 4.2 mmol/L (3.5-5.1)
[2022-12-11 08:06] LABS: CALCIUM 8.8 mg/dL (8.5-10.1)
[2022-12-11 08:10] LABS: BLOOD UREA NITROGEN 22.1 mg/dL (7-18)
[2022-12-11 08:13] LABS: CREATININE 1.3 mg/dL (0.55-1.3)
[2022-12-11 08:29] LABS: HEMOGLOBIN 11.7 GM/dL (11.7-16.9); MCH 30.5 pg (25.7-33.7); MCHC 31.5 g/dl (32.0-35.9); MEAN CELL VOLUME 96.6 fl (80-96); MEAN PLT VOLUME 11.6 fl (7.5-11.1); PLATELET COUNT 75 10^3/uL (134-434); RBC 3.83 M/mm3 (4.00-5.60); RDW 18.6 % (11.9-15.9); WHITE BLOOD COUNT 2.4 K/mm3 (4.0-10.0)
[2022-12-11 09:23] LABS: ANISOCYTOSIS 1+; MACROCYTOSIS 1+
[2022-12-11] MEDS ORDERED: dilTIAZem HCL 50 MG/10 ML - 10 ML VIAL IVPUSH PRN (12:12)
[2022-12-11] MEDS ORDERED: FUROSEMIDE 40 MG/4 ML INJECTABLE VIAL IVPUSH ONE (15:35)
[2022-12-11] MEDS ORDERED: LEVALBUTEROL HCL 0.31 MG/3 ML VIAL.NEB IH PRN (16:17)
[2022-12-11] MEDS: MEROPENEM 1 GM in DEXTROSE 5%-WATER 100 ML IVPB SCH (17:38)
[2022-12-11] MEDS: RIVAROXABAN 20 MG TABLET PO SCH (17:39)
[2022-12-11] MEDS ORDERED: LACTATED RINGERS SOLUTION 1,000 ML/1,000 ML INFUS.BAG IV SCH (18:15)
[2022-12-11 18:17] LABS: ARTERIAL BLD GAS O2 SATURATION 75.5 % (95-98); ARTERIAL BLOOD GAS PO2 44.7 mmHg (80-100); ARTERIAL BLOOD GAS pH 7.295 (7.350-7.450)
[2022-12-11] MEDS ORDERED: VANCOMYCIN 1 GM in D5W (PRE-DOCKED) 1,000 MG/250 ML (RESTRICTED TO ID ONLY IVPB ONE (18:25)
[2022-12-11 18:34] LABS: ALLENS TEST POSITIVE
[2022-12-11] MEDS ORDERED: VANCOMYCIN 1 GM/200 ML PREMIX BAG (RESTRICTED TO ID ONLY) IVPB ONE (20:30)
[2022-12-11] MEDS: ATORVASTATIN CA 40 MG TABLET (FP) PO SCH (23:01)
[2022-12-11] MEDS: DEXTROSE 5%-NORMAL SALINE 1,000 ML IV SCH (23:01)
[2022-12-11] MEDS ORDERED: ACETAMINOPHEN 325 MG TABLET (FP) PO PRN (23:30)
[2022-12-12] MEDS: MEROPENEM 1 GM in DEXTROSE 5%-WATER 100 ML IVPB SCH ×3 (01:04→17:01)
[2022-12-12] MEDS: INSULIN SLIDING SCALE (NOVOLOG) 1 VIAL SQ SCH ×4 (06:07→21:19)
[2022-12-12] MEDS: PIPERACILLIN/TAZOB 3.375 GM 3.375 GM in DEXTROSE 5%-WATER - 50 ML IVPB SCH (07:10)
[2022-12-12 09:38] LABS: BLOOD UREA NITROGEN 29.3 mg/dL (7-18); CALCIUM 8.4 mg/dL (8.5-10.1); CREATININE 1.4 mg/dL (0.55-1.3); POTASSIUM 3.9 mmol/L (3.5-5.1)
[2022-12-12 11:01] LABS: HEMATOCRIT 31.3 % (35.4-49); MCH 30.2 pg (25.7-33.7); MCHC 31.9 g/dl (32.0-35.9); MEAN CELL VOLUME 94.9 fl (80-96); MEAN PLT VOLUME 11.2 fl (7.5-11.1); PLATELET COUNT 66 10^3/uL (134-434); RDW 18.8 % (11.9-15.9); WHITE BLOOD COUNT 2.2 K/mm3 (4.0-10.0)
[2022-12-12] MEDS ORDERED: INSULIN (NOVOLOG) ASPART 100 UNITS/ML 10ML VIAL ONE (11:10)
[2022-12-12] MEDS: RIVAROXABAN 20 MG TABLET PO SCH (17:01)
[2022-12-12] MEDS: VANCOMYCIN 250 MG/5 ML ORAL SOLUTION PO SCH (17:22)
[2022-12-12] MEDS: ATORVASTATIN CA 40 MG TABLET (FP) PO SCH (21:18)
[2022-12-12] MEDS: DEXTROSE 5%-NORMAL SALINE 1,000 ML IV SCH (21:18)
[2022-12-13] MEDS: VANCOMYCIN 250 MG/5 ML ORAL SOLUTION PO SCH ×5 (01:05→23:00)
[2022-12-13] MEDS: MEROPENEM 1 GM in DEXTROSE 5%-WATER 100 ML IVPB SCH ×3 (01:05→18:10)
[2022-12-13] MEDS ORDERED: INSULIN (NOVOLOG) ASPART 100 UNITS/ML 10ML VIAL ONE (05:52)
[2022-12-13] MEDS: INSULIN SLIDING SCALE (NOVOLOG) 1 VIAL SQ SCH ×4 (06:04→22:09)
[2022-12-13 07:11] LABS: HEMATOCRIT 26.9 % (35.4-49); HEMOGLOBIN 8.7 GM/dL (11.7-16.9); MCH 30.5 pg (25.7-33.7); MCHC 32.3 g/dl (32.0-35.9); MEAN CELL VOLUME 94.5 fl (80-96); MEAN PLT VOLUME 11.8 fl (7.5-11.1); PLATELET COUNT 55 10^3/uL (134-434); RBC 2.84 M/mm3 (4.00-5.60); RDW 17.9 % (11.9-15.9)
[2022-12-13 07:22] LABS: WHITE BLOOD COUNT 1.7 K/mm3 (4.0-10.0)
[2022-12-13 07:49] LABS: CALCIUM 8.2 mg/dL (8.5-10.1)
[2022-12-13 07:51] LABS: BLOOD UREA NITROGEN 23.8 mg/dL (7-18)
[2022-12-13 07:54] LABS: BILIRUBIN,TOTAL 0.4 mg/dL (0.2-1)
[2022-12-13 08:05] LABS: ALBUMIN 2.9 g/dl (3.4-5.0); TOT PROT 5.8 g/dl (6.4-8.2)
[2022-12-13 09:36] LABS: ANISOCYTOSIS 0; MACROCYTOSIS 0; OVALOCYTE 1+
[2022-12-13] MEDS: ATORVASTATIN CA 40 MG TABLET (FP) PO SCH (21:21)
[2022-12-13] MEDS: DEXTROSE 5%-NORMAL SALINE 1,000 ML IV SCH (22:09)
[2022-12-14] MEDS: MEROPENEM 1 GM in DEXTROSE 5%-WATER 100 ML IVPB SCH ×3 (01:22→17:02)
[2022-12-14] MEDS: INSULIN SLIDING SCALE (NOVOLOG) 1 VIAL SQ SCH ×4 (06:17→21:30)
[2022-12-14] MEDS: VANCOMYCIN 250 MG/5 ML ORAL SOLUTION PO SCH ×3 (06:17→17:02)
[2022-12-14 07:02] LABS: HEMATOCRIT 26.9 % (35.4-49); HEMOGLOBIN 8.8 GM/dL (11.7-16.9); MCH 30.9 pg (25.7-33.7); MCHC 32.6 g/dl (32.0-35.9); MEAN CELL VOLUME 94.7 fl (80-96); MEAN PLT VOLUME 12.4 fl (7.5-11.1); PLATELET COUNT 57 10^3/uL (134-434); RBC 2.84 M/mm3 (4.00-5.60)
[2022-12-14 07:14] LABS: WHITE BLOOD COUNT 1.6 K/mm3 (4.0-10.0)
[2022-12-14 07:26] LABS: CALCIUM 8.1 mg/dL (8.5-10.1)
[2022-12-14 07:27] LABS: ALBUMIN 2.8 g/dl (3.4-5.0); BLOOD UREA NITROGEN 19.8 mg/dL (7-18)
[2022-12-14 07:30] LABS: CREATININE 0.9 mg/dL (0.55-1.3)
[2022-12-14 07:31] LABS: BILIRUBIN,TOTAL 0.4 mg/dL (0.2-1); TOT PROT 5.9 g/dl (6.4-8.2)
[2022-12-14 08:36] LABS: ANISOCYTOSIS 0; MACROCYTOSIS 1+; OVALOCYTE 1+
[2022-12-14] MEDS ORDERED: INSULIN (NOVOLOG) ASPART 100 UNITS/ML 10ML VIAL ONE (11:06)
[2022-12-14] MEDS: DEXTROSE 5%-NORMAL SALINE 1,000 ML IV SCH ×2 (12:42→21:27)
[2022-12-14] MEDS: ATORVASTATIN CA 40 MG TABLET (FP) PO SCH (21:27)
[2022-12-15] MEDS: VANCOMYCIN 250 MG/5 ML ORAL SOLUTION PO SCH ×4 (00:24→16:59)
[2022-12-15] MEDS: MEROPENEM 1 GM in DEXTROSE 5%-WATER 100 ML IVPB SCH ×3 (01:01→16:59)
[2022-12-15] MEDS: INSULIN SLIDING SCALE (NOVOLOG) 1 VIAL SQ SCH ×4 (07:01→22:07)
[2022-12-15 07:47] LABS: HEMATOCRIT 26.2 % (35.4-49); HEMOGLOBIN 8.6 GM/dL (11.7-16.9); MCH 30.4 pg (25.7-33.7); MCHC 32.8 g/dl (32.0-35.9); MEAN CELL VOLUME 92.8 fl (80-96); MEAN PLT VOLUME 11.3 fl (7.5-11.1); PLATELET COUNT 55 10^3/uL (134-434); RBC 2.82 M/mm3 (4.00-5.60); RDW 17.9 % (11.9-15.9)
[2022-12-15 07:54] LABS: WHITE BLOOD COUNT 1.8 K/mm3 (4.0-10.0)
[2022-12-15 08:22] LABS: POTASSIUM 3.9 mmol/L (3.5-5.1)
[2022-12-15 08:30] LABS: CALCIUM 8.5 mg/dL (8.5-10.1)
[2022-12-15 08:31] LABS: ALBUMIN 2.8 g/dl (3.4-5.0); BLOOD UREA NITROGEN 16.1 mg/dL (7-18)
[2022-12-15 08:36] LABS: BILIRUBIN,TOTAL 0.5 mg/dL (0.2-1); TOT PROT 5.9 g/dl (6.4-8.2)
[2022-12-15] MEDS: DEXTROSE 5%-NORMAL SALINE 1,000 ML IV SCH ×2 (09:02→22:03)
[2022-12-15 09:33] LABS: ANISOCYTOSIS 1+; MACROCYTOSIS 0; OVALOCYTE 1+
[2022-12-15] MEDS ORDERED: INSULIN (NOVOLOG) ASPART 100 UNITS/ML 10ML VIAL ONE (11:03)
[2022-12-15] MEDS: ATORVASTATIN CA 40 MG TABLET (FP) PO SCH (22:02)
[2022-12-16] MEDS: VANCOMYCIN 250 MG/5 ML ORAL SOLUTION PO SCH ×4 (00:46→17:52)
[2022-12-16] MEDS: MEROPENEM 1 GM in DEXTROSE 5%-WATER 100 ML IVPB SCH ×3 (01:43→17:52)
[2022-12-16] MEDS: INSULIN SLIDING SCALE (NOVOLOG) 1 VIAL SQ SCH ×4 (06:43→22:10)
[2022-12-16 11:53] LABS: BASO % 0.5 % (0-2.0); EOS % 1.7 % (0-4.5); HEMATOCRIT 30.2 % (35.4-49); HEMOGLOBIN 9.7 GM/dL (11.7-16.9); LYMPH % 27.8 % (8-40); MCH 30.1 pg (25.7-33.7); MCHC 32.1 g/dl (32.0-35.9); MEAN CELL VOLUME 93.7 fl (80-96); MEAN PLT VOLUME 11.4 fl (7.5-11.1); MONO % 7.7 % (3.8-10.2); NEUT % 62.3 % (42.8-82.8); PLATELET COUNT 59 10^3/uL (134-434); RBC 3.22 M/mm3 (4.00-5.60); WHITE BLOOD COUNT 2.1 K/mm3 (4.0-10.0)
[2022-12-16 12:23] LABS: CALCIUM 8.8 mg/dL (8.5-10.1)
[2022-12-16 12:24] LABS: ALBUMIN 3.2 g/dl (3.4-5.0); BLOOD UREA NITROGEN 12.7 mg/dL (7-18)
[2022-12-16 12:28] LABS: BILIRUBIN,TOTAL 0.5 mg/dL (0.2-1); TOT PROT 6.6 g/dl (6.4-8.2)
[2022-12-16] MEDS: ATORVASTATIN CA 40 MG TABLET (FP) PO SCH (21:33)
[2022-12-16] MEDS: DEXTROSE 5%-NORMAL SALINE 1,000 ML IV SCH (21:33)
[2022-12-17] MEDS: VANCOMYCIN 250 MG/5 ML ORAL SOLUTION PO SCH ×3 (00:51→11:19)
[2022-12-17] MEDS: MEROPENEM 1 GM in DEXTROSE 5%-WATER 100 ML IVPB SCH ×3 (01:20→17:00)
[2022-12-17] MEDS: INSULIN SLIDING SCALE (NOVOLOG) 1 VIAL SQ SCH ×4 (07:21→21:12)
[2022-12-17] MEDS ORDERED: INSULIN (NOVOLOG) ASPART 100 UNITS/ML 10ML VIAL ONE ×2 (11:15→21:10)
[2022-12-17 12:52] LABS: HEMATOCRIT 27.8 % (35.4-49); MCH 30.5 pg (25.7-33.7); MCHC 32.2 g/dl (32.0-35.9); MEAN CELL VOLUME 94.9 fl (80-96); MEAN PLT VOLUME 10.7 fl (7.5-11.1); PLATELET COUNT 55 10^3/uL (134-434); RBC 2.93 M/mm3 (4.00-5.60); RDW 17.8 % (11.9-15.9); WHITE BLOOD COUNT 2.3 K/mm3 (4.0-10.0)
[2022-12-17 13:44] LABS: POTASSIUM 3.9 mmol/L (3.5-5.1)
[2022-12-17 13:48] LABS: CALCIUM 8.8 mg/dL (8.5-10.1)
[2022-12-17 13:49] LABS: BLOOD UREA NITROGEN 15.5 mg/dL (7-18)
[2022-12-17 13:52] LABS: CREATININE 0.8 mg/dL (0.55-1.3)
[2022-12-17 13:53] LABS: BILIRUBIN,TOTAL 0.5 mg/dL (0.2-1); TOT PROT 6.1 g/dl (6.4-8.2)
[2022-12-17 14:37] LABS: ANISOCYTOSIS 0; HELMET CELLS 0; HOWELL-JOLLY BODIES 0; MACROCYTOSIS 0; OVALOCYTE 0; ROULEAU 0; SICKELED CELLS 0; TARGET CELLS 0; TEAR DROP CELLS 0; TOXIC GRANULATION 0
[2022-12-17] MEDS: DEXTROSE 5%-NORMAL SALINE 1,000 ML IV SCH ×2 (16:31→21:45)
[2022-12-17] MEDS: ATORVASTATIN CA 40 MG TABLET (FP) PO SCH (21:12)
[2022-12-18] MEDS: MEROPENEM 1 GM in DEXTROSE 5%-WATER 100 ML IVPB SCH ×3 (02:44→17:05)
[2022-12-18] MEDS: INSULIN SLIDING SCALE (NOVOLOG) 1 VIAL SQ SCH ×4 (06:55→21:56)
[2022-12-18 07:14] LABS: HEMATOCRIT 29.7 % (35.4-49); HEMOGLOBIN 9.5 GM/dL (11.7-16.9); MCH 30.6 pg (25.7-33.7); MEAN CELL VOLUME 95.5 fl (80-96); MEAN PLT VOLUME 11.7 fl (7.5-11.1); PLATELET COUNT 64 10^3/uL (134-434); RBC 3.11 M/mm3 (4.00-5.60); RDW 17.8 % (11.9-15.9); WHITE BLOOD COUNT 2.5 K/mm3 (4.0-10.0)
[2022-12-18 07:32] LABS: POTASSIUM 4.2 mmol/L (3.5-5.1)
[2022-12-18 07:37] LABS: BLOOD UREA NITROGEN 13.8 mg/dL (7-18)
[2022-12-18 07:40] LABS: CREATININE 0.9 mg/dL (0.55-1.3)
[2022-12-18 07:42] LABS: BILIRUBIN,TOTAL 0.9 mg/dL (0.2-1); TOT PROT 6.5 g/dl (6.4-8.2)
[2022-12-18] MEDS: DEXTROSE 5%-NORMAL SALINE 1,000 ML IV SCH ×2 (09:12→21:29)
[2022-12-18] MEDS ORDERED: INSULIN (NOVOLOG) ASPART 100 UNITS/ML 10ML VIAL ONE ×2 (11:01→16:18)
[2022-12-18] MEDS ORDERED: predniSONE 20 MG TABLET (UD) PO ONE (18:53)
[2022-12-18] MEDS ORDERED: diphenhydrAMINE HCL 25 MG CAPSULE (FP) PO ONE (18:54)
[2022-12-18] MEDS: ATORVASTATIN CA 40 MG TABLET (FP) PO SCH (21:29)
[2022-12-19] MEDS: MEROPENEM 1 GM in DEXTROSE 5%-WATER 100 ML IVPB SCH ×3 (02:30→17:04)
[2022-12-19] MEDS: INSULIN SLIDING SCALE (NOVOLOG) 1 VIAL SQ SCH ×4 (06:08→21:29)
[2022-12-19 07:43] LABS: BASO % 0.1 % (0-2.0); EOS % 0.1 % (0-4.5); HEMATOCRIT 29.5 % (35.4-49); HEMOGLOBIN 9.4 GM/dL (11.7-16.9); LYMPH % 13.1 % (8-40); MCH 30.3 pg (25.7-33.7); MCHC 31.7 g/dl (32.0-35.9); MEAN CELL VOLUME 95.4 fl (80-96); MEAN PLT VOLUME 12.4 fl (7.5-11.1); MONO % 3.8 % (3.8-10.2); NEUT % 82.9 % (42.8-82.8); PLATELET COUNT 66 10^3/uL (134-434); RBC 3.09 M/mm3 (4.00-5.60); RDW 17.7 % (11.9-15.9)
[2022-12-19 07:47] LABS: INR 1.37 (0.83-1.09); PROTHROMBIN TIME (PATIENT) 15.8 SEC (9.7-13.0)
[2022-12-19 07:50] LABS: ACTIVATED PTT 33.7 SECONDS (25.2-36.5)
[2022-12-19 08:39] LABS: POTASSIUM 4.3 mmol/L (3.5-5.1)
[2022-12-19 08:47] LABS: BLOOD UREA NITROGEN 19.6 mg/dL (7-18); CALCIUM 8.9 mg/dL (8.5-10.1); MAGNESIUM 2.1 mg/dL (1.8-2.4)
[2022-12-19 08:49] LABS: CREATININE 1.1 mg/dL (0.55-1.3); PHOSPHOROUS 2.9 mg/dL (2.5-4.9)
[2022-12-19] MEDS ORDERED: FENTANYL CITRATE/PF 50 MCG/ML VIAL ONE ×2 (11:23→11:55)
[2022-12-19] MEDS ORDERED: MIDAZOLAM HCL 2 MG/2 ML SINGLE DOSE VIAL ONE (11:23)
[2022-12-19] MEDS ORDERED: SODIUM CHLORIDE 500 ML IV ONE (11:30)
[2022-12-19] MEDS ORDERED: MIDAZOLAM HCL 2 MG/2 ML SINGLE DOSE VIAL IVPUSH ONE ×2 (11:43→12:10)
[2022-12-19] MEDS ORDERED: FENTANYL CITRATE/PF 50 MCG/ML VIAL IVPUSH ONE ×2 (11:43→12:10)
[2022-12-19] MEDS ORDERED: INSULIN (NOVOLOG) ASPART 100 UNITS/ML 10ML VIAL ONE (13:10)
[2022-12-19] MEDS: RIVAROXABAN 20 MG TABLET PO SCH (17:06)
[2022-12-19] MEDS: ATORVASTATIN CA 40 MG TABLET (FP) PO SCH (21:09)
[2022-12-19] MEDS: DEXTROSE 5%-NORMAL SALINE 1,000 ML IV SCH (21:09)
[2022-12-20] MEDS: MEROPENEM 1 GM in DEXTROSE 5%-WATER 100 ML IVPB SCH ×2 (02:46→09:48)
[2022-12-20] MEDS: INSULIN SLIDING SCALE (NOVOLOG) 1 VIAL SQ SCH ×3 (06:33→15:54)
[2022-12-20 08:34] LABS: HEMATOCRIT 29.5 % (35.4-49); HEMOGLOBIN 9.3 GM/dL (11.7-16.9); MCH 29.9 pg (25.7-33.7); MCHC 31.4 g/dl (32.0-35.9); MEAN CELL VOLUME 95.2 fl (80-96); MEAN PLT VOLUME 11.5 fl (7.5-11.1); PLATELET COUNT 65 10^3/uL (134-434); RBC 3.09 M/mm3 (4.00-5.60); RDW 18.3 % (11.9-15.9); WHITE BLOOD COUNT 3.9 K/mm3 (4.0-10.0)
[2022-12-20 08:49] LABS: POTASSIUM 4.4 mmol/L (3.5-5.1)
[2022-12-20 08:55] LABS: BLOOD UREA NITROGEN 24.2 mg/dL (7-18); CALCIUM 8.9 mg/dL (8.5-10.1)
[2022-12-20 08:58] LABS: BILIRUBIN,TOTAL 0.3 mg/dL (0.2-1)
[2022-12-20 08:59] LABS: CREATININE 0.9 mg/dL (0.55-1.3)
[2022-12-20 09:00] LABS: ANISOCYTOSIS 0; HELMET CELLS 0; HOWELL-JOLLY BODIES 0; MACROCYTOSIS 0; OVALOCYTE 0; ROULEAU 0; SICKELED CELLS 0; TARGET CELLS 0; TEAR DROP CELLS 0; TOXIC GRANULATION 0
[2022-12-20 09:01] LABS: TOT PROT 6.2 g/dl (6.4-8.2)
[2022-12-20 16:25] VITALS: BP 124/66; PULSE 81; RESP 24
[2022-12-20 16:26] VITALS: TEMP 98.2
== END 2022-12-20 16:45 | DRG 871 ==
LOC: JER 16:18 → JERBED 19:09 → J4S 22:41 → J2W 12-11 18:54
PROVIDERS: ADMIT Internal Medicine; ATTEND Family Medicine
PROC: 0T9330Z Drainage of Right Kidney Pelvis with Drainage Device, Percutaneous Approach (ICD-10-PCS; principal; 2022-12-19)
DX: A41.9 Sepsis, unspecified organism (principal); G93.41 Metabolic encephalopathy; J96.02 Acute respiratory failure with hypercapnia; J96.01 Acute respiratory failure with hypoxia; I50.32 Chronic diastolic (congestive) heart failure; N39.0 Urinary tract infection, site not specified; D61.818 Other pancytopenia; N13.0 Hydronephrosis with ureteropelvic junction obstruction; Z16.12 Extended spectrum beta lactamase (ESBL) resistance; R65.20 Severe sepsis without septic shock; I48.0 Paroxysmal atrial fibrillation; I10 Essential (primary) hypertension; I11.0 Hypertensive heart disease with heart failure; D69.6 Thrombocytopenia, unspecified; Z93.6 Other artificial openings of urinary tract status; B96.20 Unspecified Escherichia coli [E. coli] as the cause of diseases classified elsewhere; E78.5 Hyperlipidemia, unspecified
CPT/HCPCS: 0241U-QW; 36415; 36600; 50432; 70450-TC; 71045-TC-FY; 74176-TC; 76775-TC; 80048; 80053; 81003; 82272; 82728; 82803; 82962; 83540; 83550; 83605; 83735; 83880; 84100; 84466; 84484; 85025; 85027; 85610; 85730; 86850; 86900; 86901; 87040; 87045; 87046; 87070; 87075; 87077; 87086; 87102; 87116; 87186; 87205; 87206; 87210; 87324; 87449; 87493; 93005; 93010; 93306-TC; 93880-TC; 94761; 95816; 97116-GP; 97161-GP; 99285-25

== ENCOUNTER 2023-01-06 09:04 | Day surgery (SDC) | payer OTHER, MEDICARE ==
[2023-01-03 15:29] VITALS: BMI 30.1
[2023-01-06 09:46] LABS: BASO % 1.7 % (0-2.0); EOS % 9.7 % (0-4.5); HEMATOCRIT 25.8 % (35.4-49); HEMOGLOBIN 8.2 GM/dL (11.7-16.9); LYMPH % 31.8 % (8-40); MCH 30.3 pg (25.7-33.7); MCHC 31.9 g/dl (32.0-35.9); MEAN CELL VOLUME 95.1 fl (80-96); MEAN PLT VOLUME 10.7 fl (7.5-11.1); MONO % 7.7 % (3.8-10.2); NEUT % 49.1 % (42.8-82.8); PLATELET COUNT 53 10^3/uL (134-434); RBC 2.72 M/mm3 (4.00-5.60); RDW 17.9 % (11.9-15.9)
[2023-01-06 09:48] LABS: INR 1.43 (0.83-1.09); PROTHROMBIN TIME (PATIENT) 16.5 SEC (9.7-13.0)
[2023-01-06] MEDS ORDERED: SODIUM CHLORIDE 500 ML IV ONE (13:30)
[2023-01-06] MEDS ORDERED: MIDAZOLAM HCL 2 MG/2 ML SINGLE DOSE VIAL ONE (13:42)
[2023-01-06] MEDS ORDERED: FENTANYL CITRATE/PF 50 MCG/ML VIAL ONE (13:42)
[2023-01-06] MEDS ORDERED: MIDAZOLAM HCL 2 MG/2 ML SINGLE DOSE VIAL IVPUSH ONE (13:50)
[2023-01-06] MEDS ORDERED: FENTANYL CITRATE/PF 50 MCG/ML VIAL IVPUSH ONE (13:50)
[2023-01-06 18:16] VITALS: RESP 20; TEMP 97.8
[2023-01-06 18:23] VITALS: BP 125/80; PULSE 110
== END 2023-01-06 16:20 | disposition home or self-care (01) ==
LOC: JRADIR 09:04
PROVIDERS: ATTEND Radiology Vascular & Interventional Radiology
PROC: 0T773ZZ Dilation of Left Ureter, Percutaneous Approach (ICD-10-PCS; principal; 2023-01-06)
DX: N13.1 Hydronephrosis with ureteral stricture, not elsewhere classified (principal)
CPT/HCPCS: 36415; 50433; 85025; 85610; C1769

== ENCOUNTER 2023-01-13 19:41 | Inpatient (IN) | payer OTHER, MEDICARE ==
[2023-01-13] MEDS ORDERED: dilTIAZem HCL 50 MG/10 ML - 10 ML VIAL IVPUSH ONE ×3 (20:19→23:05)
[2023-01-13] MEDS ORDERED: LACTATED RINGERS SOLUTION 1000 ML INFUS.BAG IV ONE (20:32)
[2023-01-13 22:13] LABS: BASO % 0.8 % (0-2.0); EOS % 1.7 % (0-4.5); HEMATOCRIT 28.5 % (35.4-49); HEMOGLOBIN 9.3 GM/dL (11.7-16.9); MCH 31.7 pg (25.7-33.7); MCHC 32.7 g/dl (32.0-35.9); MEAN CELL VOLUME 96.9 fl (80-96); MEAN PLT VOLUME 11.7 fl (7.5-11.1); MONO % 7.4 % (3.8-10.2); NEUT % 63.1 % (42.8-82.8); PLATELET COUNT 96 10^3/uL (134-434); RBC 2.94 M/mm3 (4.00-5.60); RDW 18.3 % (11.9-15.9); WHITE BLOOD COUNT 2.4 K/mm3 (4.0-10.0)
[2023-01-13] MEDS ORDERED: dilTIAZem HCL 125 MG/25 ML - 25 ML VIAL ONE ×3 (22:16→23:54)
[2023-01-13 22:18] LABS: INR 3.02 (0.83-1.09); PROTHROMBIN TIME (PATIENT) 34.7 SEC (9.7-13.0)
[2023-01-13 22:36] LABS: CALCIUM 8.8 mg/dL (8.5-10.1)
[2023-01-13 22:37] LABS: ALBUMIN 3.4 g/dl (3.4-5.0); BLOOD UREA NITROGEN 23.2 mg/dL (7-18)
[2023-01-13 22:40] LABS: CREATININE 1.3 mg/dL (0.55-1.3); PLATELET ESTIMATE INCREASED
[2023-01-13 22:42] LABS: TOT PROT 8.2 g/dl (6.4-8.2)
[2023-01-13] MEDS ORDERED: ACETAMINOPHEN 1000 MG/100 ML BAG IVPB ONE (23:40)
[2023-01-13] MEDS ORDERED: VANCOMYCIN 1 GM in D5W (PRE-DOCKED) 1,000 MG/250 ML (RESTRICTED TO ID ONLY IVPB ONE (23:41)
[2023-01-13] MEDS ORDERED: PIPERACILLIN/TAZOB 4.5 GM 4.5 GM in DEXTROSE 5%-WATER 100 ML IVPB ONE (23:41)
[2023-01-13] MEDS ORDERED: VANCOMYCIN/WATER FOR INJ (PEG) 1,000 MG/200 ML BAG IVPB ONE (23:45)
[2023-01-13] MEDS ORDERED: SODIUM CHLORIDE 0.9% 500 ML INFUS.BAG IV ONE (23:47)
[2023-01-14] MEDS ORDERED: METOPROLOL TARTRATE 5 MG/5 ML VIAL IVPUSH ONE ×2 (00:25→02:07)
[2023-01-14] MEDS ORDERED: METOPROLOL TARTRATE 5 MG/5 ML VIAL ONE ×2 (00:28→02:15)
[2023-01-14] MEDS ORDERED: ACETAMINOPHEN INJECTION 100 ML IVPB ONE (01:15)
[2023-01-14] MEDS ORDERED: PIPERACILLIN/TAZOB 4.5 GM 4.5 GM/100 ML BAG IVPB ONE (01:16)
[2023-01-14] MEDS ORDERED: VANCOMYCIN/WATER FOR INJ (PEG) 1,000 MG/200 ML BAG IVPB ONE ×3 (01:17→02:47)
[2023-01-14] MEDS ORDERED: PIPERACILLIN/TAZOB 3.375 GM 3.375 GM/50 ML BAG IVPB ONE (01:19)
[2023-01-14] MEDS ORDERED: metoPROLOL SUCCINATE 25 MG TAB.SR.24H (FP) PO ONE ×2 (01:28→02:15)
[2023-01-14] MEDS ORDERED: METOPROLOL TARTRATE 25 MG TABLET (FP) PO ONE (01:29)
[2023-01-14] MEDS ORDERED: AMIODARONE IN DEXTROSE,ISO-OSM 150 MG/100 ML BAG IVPB ONE (06:30)
[2023-01-14] MEDS ORDERED: AMIODARONE IN DEXTROSE,ISO-OSM 360 MG/200 ML BAG IV SCH (06:40)
[2023-01-14 06:42] LABS: EPI CELLS 5 /uL (0-25.1); HYALINE CASTS 3 /uL (0-3.1); PH,URINE 5.5 (5.0-8.0); URINE APPEARANCE CLOUDY; URINE BACTERIA 350 /uL (0-1359); URINE BILIRUBIN NEGATIVE (NEGATIVE); URINE COLOR YELLOW; URINE GLUCOSE (UA) NEGATIVE (NEGATIVE); URINE KETONE NEGATIVE (NEGATIVE); URINE LEUK ESTERASE 2+ (NEGATIVE); URINE NITRITE NEGATIVE (NEGATIVE); URINE PROTEIN 2+ (NEGATIVE); URINE RBC 1258 /uL (0-23.9); URINE UROBILINOGEN 0.2 mg/dL (0.2-1.0); URINE WBC 1237 /uL (0-25.8)
[2023-01-14] MEDS ORDERED: MEROPENEM 1 GM in DEXTROSE 5%-WATER 100 ML IVPB SCH ×2 (07:45→08:00)
[2023-01-14] MEDS: PANTOPRAZOLE SODIUM 40 MG VIAL IVPUSH SCH (09:50)
[2023-01-14] MEDS: LACTATED RINGERS SOLUTION 1,000 ML/1,000 ML INFUS.BAG IV SCH (09:51)
[2023-01-14] MEDS: MUPIROCIN 2% TOPICAL OINTMENT FOR DECOLONIZATION NS SCH ×2 (09:52→21:11)
[2023-01-14] MEDS ORDERED: PIPERACILLIN/TAZOB 3.375 GM 3.375 GM in DEXTROSE 5%-WATER - 50 ML IVPB SCH (10:00)
[2023-01-14] MEDS ORDERED: DAPTOMYCIN 500 MG in SODIUM CHLORIDE 50 ML IVPB ONE (10:39)
[2023-01-14] MEDS: PROPOFOL 1,000,000 MCG/100 ML VIAL IVPB SCH ×3 (10:47→21:15)
[2023-01-14] MEDS ORDERED: ENOXAPARIN NA (PORCINE) 40 MG/0.4 ML DISP.SYRIN SQ SCH (11:00)
[2023-01-14] MEDS ORDERED: SODIUM CHLORIDE 1,000 ML IV STA (11:32)
[2023-01-14 11:58] LABS: ARTERIAL BLD GAS O2 SATURATION 99.6 % (95-98); ARTERIAL BLOOD GAS BASE EXCESS -6.9 mmol/L (-2-2); ARTERIAL BLOOD GAS PO2 320.1 mmHg (80-100); ARTERIAL BLOOD GAS pH 7.236 (7.350-7.450)
[2023-01-14 11:59] LABS: HEMATOCRIT 21.3 % (35.4-49); MCHC 31.5 g/dl (32.0-35.9); MEAN CELL VOLUME 101.6 fl (80-96); MEAN PLT VOLUME 11.4 fl (7.5-11.1); PLATELET COUNT 62 10^3/uL (134-434); RDW 18.3 % (11.9-15.9)
[2023-01-14 12:01] LABS: ALLENS TEST POSITIVE
[2023-01-14 12:02] LABS: VENT MODE AC; VENT RATE 20
[2023-01-14 12:04] LABS: WHITE BLOOD COUNT 1.6 K/mm3 (4.0-10.0)
[2023-01-14 12:05] LABS: HEMOGLOBIN 6.7 GM/dL (11.7-16.9)
[2023-01-14 12:17] LABS: CHLORIDE 108 mmol/L (98-107); POTASSIUM 3.8 mmol/L (3.5-5.1); SODIUM 140 mmol/L (136-145)
[2023-01-14 12:21] LABS: ANION GAP 16 MMOL/L (8-16); BLOOD UREA NITROGEN 14.4 mg/dL (7-18); CO2 17 mmol/L (21-32); GLUCOSE,RANDOM 204 mg/dL (74-106); MAGNESIUM 1.1 mg/dL (1.8-2.4)
[2023-01-14 12:23] LABS: SGPT/ALT 10 U/L (13-61)
[2023-01-14 12:24] LABS: CREATININE 0.7 mg/dL (0.55-1.3); PHOSPHOROUS 3.3 mg/dL (2.5-4.9); SGOT/AST 8 U/L (15-37)
[2023-01-14 12:25] LABS: BILIRUBIN,TOTAL 0.3 mg/dL (0.2-1)
[2023-01-14 12:28] LABS: ALBUMIN 1.3 g/dl (3.4-5.0); ALK PHOS 22 U/L (45-117); CALCIUM 6.2 mg/dL (8.5-10.1)
[2023-01-14] MEDS ORDERED: CASPOFUNGIN ACETATE 70 MG in SODIUM CHLORIDE 250 ML IVPB ONE (13:00)
[2023-01-14] MEDS: AMIODARONE IN DEXTROSE,ISO-OSM 360 MG/200 ML BAG IV SCH ×2 (13:13→18:25)
[2023-01-14] MEDS ORDERED: MAGNESIUM SULF 50% (8.12 MEQ/2 ML-1 GM VIAL) IVPB ONE ×2 (13:30→14:42)
[2023-01-14] MEDS: PHENYLEPHRINE NS PREMIX 50,000 MCG/500 ML BAG CVP SCH (16:20)
[2023-01-14] MEDS: INSULIN SLIDING SCALE (NOVOLOG) 1 VIAL SQ SCH ×2 (16:32→21:11)
[2023-01-14] MEDS: MEROPENEM 1 GM in DEXTROSE 5%-WATER 100 ML IVPB SCH (18:25)
[2023-01-14] MEDS: CHLORHEXIDINE GLUCONATE 4% CLEANSER FOR DECOLONIZATION TP SCH (21:11)
[2023-01-15 00:55] LABS: HEMATOCRIT 28.4 % (35.4-49); HEMOGLOBIN 9.4 GM/dL (11.7-16.9); MCH 31.4 pg (25.7-33.7); MCHC 33.1 g/dl (32.0-35.9); MEAN CELL VOLUME 94.9 fl (80-96); RBC 2.99 M/mm3 (4.00-5.60); RDW 17.1 % (11.9-15.9); WHITE BLOOD COUNT 4.2 K/mm3 (4.0-10.0)
[2023-01-15] MEDS: MEROPENEM 1 GM in DEXTROSE 5%-WATER 100 ML IVPB SCH ×3 (01:14→17:49)
[2023-01-15 02:10] LABS: MEAN PLT VOLUME 10.1 fl (7.5-11.1); PLATELET COUNT 111 10^3/uL (134-434)
[2023-01-15] MEDS: AMIODARONE IN DEXTROSE,ISO-OSM 360 MG/200 ML BAG IV SCH ×2 (04:56→16:16)
[2023-01-15] MEDS: PROPOFOL 1,000,000 MCG/100 ML VIAL IVPB SCH ×2 (04:56→12:07)
[2023-01-15] MEDS: PHENYLEPHRINE NS PREMIX 50,000 MCG/500 ML BAG CVP SCH ×2 (04:57→21:39)
[2023-01-15] MEDS: INSULIN SLIDING SCALE (NOVOLOG) 1 VIAL SQ SCH ×4 (06:03→21:40)
[2023-01-15 07:33] LABS: INR 1.58 (0.83-1.09); PROTHROMBIN TIME (PATIENT) 18.2 SEC (9.7-13.0)
[2023-01-15 07:35] LABS: ACTIVATED PTT 30.8 SECONDS (25.2-36.5)
[2023-01-15 07:50] LABS: MCH 31.5 pg (25.7-33.7); MCHC 33.5 g/dl (32.0-35.9); PLATELET COUNT 84 10^3/uL (134-434); RBC 2.87 M/mm3 (4.00-5.60); RDW 17.9 % (11.9-15.9); WHITE BLOOD COUNT 3.9 K/mm3 (4.0-10.0)
[2023-01-15 07:52] LABS: POTASSIUM 3.7 mmol/L (3.5-5.1)
[2023-01-15 07:59] LABS: BLOOD UREA NITROGEN 26.4 mg/dL (7-18); MAGNESIUM 2.8 mg/dL (1.8-2.4)
[2023-01-15 08:02] LABS: CREATININE 1.5 mg/dL (0.55-1.3); PHOSPHOROUS 3.8 mg/dL (2.5-4.9)
[2023-01-15 08:03] LABS: BILIRUBIN,TOTAL 0.6 mg/dL (0.2-1)
[2023-01-15 08:20] LABS: ALBUMIN 2.5 g/dl (3.4-5.0); CALCIUM 7.6 mg/dL (8.5-10.1); TOT PROT 5.8 g/dl (6.4-8.2)
[2023-01-15] MEDS: PANTOPRAZOLE SODIUM 40 MG VIAL IVPUSH SCH (09:34)
[2023-01-15] MEDS: LACTATED RINGERS SOLUTION 1,000 ML/1,000 ML INFUS.BAG IV SCH (09:35)
[2023-01-15] MEDS: MUPIROCIN 2% TOPICAL OINTMENT FOR DECOLONIZATION NS SCH ×2 (09:35→22:15)
[2023-01-15 10:07] LABS: ANISOCYTOSIS 0; MACROCYTOSIS 0
[2023-01-15] MEDS: ENOXAPARIN NA (PORCINE) 100 MG/1 ML DISP.SYRIN SQ SCH (14:17)
[2023-01-15] MEDS: CHLORHEXIDINE GLUCONATE 4% CLEANSER FOR DECOLONIZATION TP SCH (21:39)
[2023-01-16] MEDS: MEROPENEM 1 GM in DEXTROSE 5%-WATER 100 ML IVPB SCH ×3 (01:12→18:30)
[2023-01-16] MEDS: INSULIN SLIDING SCALE (NOVOLOG) 1 VIAL SQ SCH ×4 (06:25→22:55)
[2023-01-16 07:45] LABS: HEMATOCRIT 22.1 % (35.4-49); MCH 30.7 pg (25.7-33.7); MCHC 31.8 g/dl (32.0-35.9); MEAN CELL VOLUME 96.6 fl (80-96); MEAN PLT VOLUME 12.2 fl (7.5-11.1); PLATELET COUNT 54 10^3/uL (134-434); RBC 2.29 M/mm3 (4.00-5.60); RDW 17.4 % (11.9-15.9)
[2023-01-16 07:59] LABS: WHITE BLOOD COUNT 1.4 K/mm3 (4.0-10.0)
[2023-01-16 08:08] LABS: POTASSIUM 3.7 mmol/L (3.5-5.1)
[2023-01-16 08:10] LABS: CALCIUM 7.5 mg/dL (8.5-10.1)
[2023-01-16 08:11] LABS: ALBUMIN 2.3 g/dl (3.4-5.0); BLOOD UREA NITROGEN 19.4 mg/dL (7-18); MAGNESIUM 2.3 mg/dL (1.8-2.4)
[2023-01-16 08:14] LABS: CREATININE 1.2 mg/dL (0.55-1.3); PHOSPHOROUS 2.6 mg/dL (2.5-4.9)
[2023-01-16 08:15] LABS: BILIRUBIN,TOTAL 0.3 mg/dL (0.2-1); TOT PROT 5.5 g/dl (6.4-8.2)
[2023-01-16] MEDS: PANTOPRAZOLE SODIUM 40 MG VIAL IVPUSH SCH (09:07)
[2023-01-16] MEDS ORDERED: POTASSIUM CHLORIDE ORAL LIQUID 20 MEQ/15 ML PO ONE (10:00)
[2023-01-16 11:26] LABS: HEMATOCRIT 23.2 % (35.4-49); HEMOGLOBIN 7.2 GM/dL (11.7-16.9); MCH 30.1 pg (25.7-33.7); MCHC 31.1 g/dl (32.0-35.9); MEAN CELL VOLUME 96.6 fl (80-96); MEAN PLT VOLUME 11.4 fl (7.5-11.1); RDW 17.8 % (11.9-15.9)
[2023-01-16 11:31] LABS: WHITE BLOOD COUNT 1.2 K/mm3 (4.0-10.0)
[2023-01-16] MEDS: MUPIROCIN 2% TOPICAL OINTMENT FOR DECOLONIZATION NS SCH ×2 (11:41→22:58)
[2023-01-16] MEDS: PROPOFOL 1,000,000 MCG/100 ML VIAL IVPB SCH (11:42)
[2023-01-16 12:06] LABS: ANISOCYTOSIS 0; HELMET CELLS 0; HOWELL-JOLLY BODIES 0; MACROCYTOSIS 0; OVALOCYTE 0; ROULEAU 0; SICKELED CELLS 0; TARGET CELLS 0; TEAR DROP CELLS 0; TOXIC GRANULATION 0
[2023-01-16 12:09] LABS: PLATELET COUNT 44 10^3/uL (134-434)
[2023-01-16] MEDS: AMIODARONE IN DEXTROSE,ISO-OSM 360 MG/200 ML BAG IV SCH (14:46)
[2023-01-16] MEDS: LACTATED RINGERS SOLUTION 1,000 ML/1,000 ML INFUS.BAG IV SCH (14:46)
[2023-01-16] MEDS: CASPOFUNGIN ACETATE 50 MG in SODIUM CHLORIDE 250 ML IVPB SCH (17:17)
[2023-01-16] MEDS: CHLORHEXIDINE GLUCONATE 4% CLEANSER FOR DECOLONIZATION TP SCH (22:55)
[2023-01-17] MEDS: MEROPENEM 1 GM in DEXTROSE 5%-WATER 100 ML IVPB SCH ×3 (01:38→17:19)
[2023-01-17] MEDS: INSULIN SLIDING SCALE (NOVOLOG) 1 VIAL SQ SCH ×4 (06:29→21:28)
[2023-01-17] MEDS: AMIODARONE IN DEXTROSE,ISO-OSM 360 MG/200 ML BAG IV SCH ×2 (06:45→12:08)
[2023-01-17 07:08] LABS: HEMATOCRIT 23.9 % (35.4-49); HEMOGLOBIN 7.7 GM/dL (11.7-16.9); MCH 31.1 pg (25.7-33.7); MCHC 32.1 g/dl (32.0-35.9); MEAN CELL VOLUME 96.8 fl (80-96); MEAN PLT VOLUME 11.7 fl (7.5-11.1); PLATELET COUNT 47 10^3/uL (134-434); RBC 2.46 M/mm3 (4.00-5.60); RDW 17.4 % (11.9-15.9)
[2023-01-17 07:19] LABS: WHITE BLOOD COUNT 1.5 K/mm3 (4.0-10.0)
[2023-01-17 07:28] LABS: POTASSIUM 4.2 mmol/L (3.5-5.1)
[2023-01-17 07:32] LABS: CALCIUM 8.1 mg/dL (8.5-10.1)
[2023-01-17 07:33] LABS: ALBUMIN 2.4 g/dl (3.4-5.0); BLOOD UREA NITROGEN 13.9 mg/dL (7-18)
[2023-01-17 07:36] LABS: CREATININE 1.1 mg/dL (0.55-1.3); PHOSPHOROUS 2.3 mg/dL (2.5-4.9)
[2023-01-17 07:37] LABS: BILIRUBIN,TOTAL 0.3 mg/dL (0.2-1); TOT PROT 5.8 g/dl (6.4-8.2)
[2023-01-17] MEDS ORDERED: NAPH,MB-DB/K PH,MBDB POWDER PACKET PO ONE (07:38)
[2023-01-17] MEDS: PANTOPRAZOLE SODIUM 40 MG VIAL IVPUSH SCH (09:06)
[2023-01-17] MEDS: MUPIROCIN 2% TOPICAL OINTMENT FOR DECOLONIZATION NS SCH ×2 (09:07→21:27)
[2023-01-17] MEDS: ENOXAPARIN NA (PORCINE) 100 MG/1 ML DISP.SYRIN SQ SCH (09:07)
[2023-01-17] MEDS: METOPROLOL TARTRATE 25 MG TABLET (FP) PO SCH ×2 (12:08→18:45)
[2023-01-17] MEDS: LACTATED RINGERS SOLUTION 1,000 ML/1,000 ML INFUS.BAG IV SCH (12:08)
[2023-01-17] MEDS: CASPOFUNGIN ACETATE 50 MG in SODIUM CHLORIDE 250 ML IVPB SCH (16:03)
[2023-01-17] MEDS: CHLORHEXIDINE GLUCONATE 4% CLEANSER FOR DECOLONIZATION TP SCH (21:28)
[2023-01-17] MEDS ORDERED: ACETAMINOPHEN 325 MG TABLET (FP) PO ONE (23:22)
[2023-01-18] MEDS: MEROPENEM 1 GM in DEXTROSE 5%-WATER 100 ML IVPB SCH ×3 (01:02→17:01)
[2023-01-18] MEDS: AMIODARONE IN DEXTROSE,ISO-OSM 360 MG/200 ML BAG IV SCH ×2 (03:49→13:34)
[2023-01-18] MEDS: METOPROLOL TARTRATE 25 MG TABLET (FP) PO SCH ×3 (04:02→21:16)
[2023-01-18] MEDS: INSULIN SLIDING SCALE (NOVOLOG) 1 VIAL SQ SCH ×4 (06:21→21:19)
[2023-01-18 07:19] LABS: HEMATOCRIT 25.3 % (35.4-49); HEMOGLOBIN 8.1 GM/dL (11.7-16.9); MCH 30.9 pg (25.7-33.7); MCHC 31.9 g/dl (32.0-35.9); MEAN CELL VOLUME 96.9 fl (80-96); MEAN PLT VOLUME 11.9 fl (7.5-11.1); PLATELET COUNT 48 10^3/uL (134-434); RBC 2.61 M/mm3 (4.00-5.60); RDW 17.3 % (11.9-15.9)
[2023-01-18 07:28] LABS: WHITE BLOOD COUNT 1.7 K/mm3 (4.0-10.0)
[2023-01-18 07:35] LABS: POTASSIUM 4.1 mmol/L (3.5-5.1)
[2023-01-18 07:41] LABS: CALCIUM 8.2 mg/dL (8.5-10.1)
[2023-01-18 07:44] LABS: ALBUMIN 2.5 g/dl (3.4-5.0); BILIRUBIN,TOTAL 0.3 mg/dL (0.2-1); PHOSPHOROUS 2.9 mg/dL (2.5-4.9); TOT PROT 6.1 g/dl (6.4-8.2)
[2023-01-18 07:45] LABS: CREATININE 1.1 mg/dL (0.55-1.3)
[2023-01-18] MEDS: PANTOPRAZOLE SODIUM 40 MG VIAL IVPUSH SCH (09:05)
[2023-01-18] MEDS: MUPIROCIN 2% TOPICAL OINTMENT FOR DECOLONIZATION NS SCH ×2 (09:05→21:18)
[2023-01-18] MEDS: ENOXAPARIN NA (PORCINE) 100 MG/1 ML DISP.SYRIN SQ SCH (09:05)
[2023-01-18] MEDS ORDERED: INSULIN (NOVOLOG) ASPART 100 UNITS/ML 10ML VIAL ONE (11:08)
[2023-01-18] MEDS: LACTATED RINGERS SOLUTION 1,000 ML/1,000 ML INFUS.BAG IV SCH (13:35)
[2023-01-18] MEDS: CASPOFUNGIN ACETATE 50 MG in SODIUM CHLORIDE 250 ML IVPB SCH (14:47)
[2023-01-18] MEDS: CHLORHEXIDINE GLUCONATE 4% CLEANSER FOR DECOLONIZATION TP SCH (21:16)
[2023-01-19] MEDS: MEROPENEM 1 GM in DEXTROSE 5%-WATER 100 ML IVPB SCH ×3 (01:29→17:43)
[2023-01-19] MEDS: METOPROLOL TARTRATE 25 MG TABLET (FP) PO SCH ×3 (04:56→21:22)
[2023-01-19] MEDS: INSULIN SLIDING SCALE (NOVOLOG) 1 VIAL SQ SCH ×4 (06:18→21:25)
[2023-01-19 07:30] LABS: POTASSIUM 4.1 mmol/L (3.5-5.1)
[2023-01-19 07:38] LABS: ALBUMIN 2.5 g/dl (3.4-5.0)
[2023-01-19 07:40] LABS: CALCIUM 8.3 mg/dL (8.5-10.1)
[2023-01-19 07:41] LABS: PHOSPHOROUS 2.7 mg/dL (2.5-4.9)
[2023-01-19 07:42] LABS: BILIRUBIN,TOTAL 0.3 mg/dL (0.2-1)
[2023-01-19 07:57] LABS: HEMATOCRIT 24.6 % (35.4-49); HEMOGLOBIN 7.9 GM/dL (11.7-16.9); MCH 31.1 pg (25.7-33.7); MEAN CELL VOLUME 97.2 fl (80-96); RBC 2.53 M/mm3 (4.00-5.60); RDW 17.1 % (11.9-15.9)
[2023-01-19 08:27] LABS: WHITE BLOOD COUNT 1.6 K/mm3 (4.0-10.0)
[2023-01-19 08:28] LABS: MEAN PLT VOLUME 11.9 fl (7.5-11.1); PLATELET COUNT 51 10^3/uL (134-434)
[2023-01-19] MEDS: PANTOPRAZOLE SODIUM 40 MG VIAL IVPUSH SCH (09:15)
[2023-01-19] MEDS: ENOXAPARIN NA (PORCINE) 100 MG/1 ML DISP.SYRIN SQ SCH (09:15)
[2023-01-19 09:21] LABS: ANISOCYTOSIS 0; MACROCYTOSIS 0
[2023-01-19] MEDS: CASPOFUNGIN ACETATE 50 MG in SODIUM CHLORIDE 250 ML IVPB SCH (16:39)
[2023-01-19] MEDS ORDERED: MEROPENEM 1 GM VIAL (RESTRICTED TO ID) IVPB ONE (17:37)
[2023-01-19] MEDS: CHLORHEXIDINE GLUCONATE 4% CLEANSER FOR DECOLONIZATION TP SCH (21:20)
[2023-01-20] MEDS: MEROPENEM 1 GM in DEXTROSE 5%-WATER 100 ML IVPB SCH ×3 (01:12→18:21)
[2023-01-20] MEDS: METOPROLOL TARTRATE 25 MG TABLET (FP) PO SCH ×3 (05:00→20:05)
[2023-01-20] MEDS: INSULIN SLIDING SCALE (NOVOLOG) 1 VIAL SQ SCH ×4 (06:32→21:25)
[2023-01-20] MEDS: PANTOPRAZOLE SODIUM 40 MG VIAL IVPUSH SCH (10:09)
[2023-01-20] MEDS: ENOXAPARIN NA (PORCINE) 100 MG/1 ML DISP.SYRIN SQ SCH (10:10)
[2023-01-20] MEDS: CASPOFUNGIN ACETATE 50 MG in SODIUM CHLORIDE 250 ML IVPB SCH (15:29)
[2023-01-20 16:06] VITALS: BMI 29.2
[2023-01-20] MEDS ORDERED: INSULIN (NOVOLOG) ASPART 100 UNITS/ML 10ML VIAL ONE (18:28)
[2023-01-20] MEDS: CHLORHEXIDINE GLUCONATE 4% CLEANSER FOR DECOLONIZATION TP SCH (21:25)
[2023-01-21] MEDS: MEROPENEM 1 GM in DEXTROSE 5%-WATER 100 ML IVPB SCH ×2 (02:30→09:10)
[2023-01-21] MEDS: METOPROLOL TARTRATE 25 MG TABLET (FP) PO SCH ×3 (03:22→20:18)
[2023-01-21] MEDS: INSULIN SLIDING SCALE (NOVOLOG) 1 VIAL SQ SCH ×4 (06:34→21:39)
[2023-01-21] MEDS: ENOXAPARIN NA (PORCINE) 100 MG/1 ML DISP.SYRIN SQ SCH (09:09)
[2023-01-21] MEDS: PANTOPRAZOLE SODIUM 40 MG VIAL IVPUSH SCH (09:11)
[2023-01-21] MEDS ORDERED: POLYETHYLENE GLYCOL (HEALTHYLAX) 3350 17 GM PACKET PO PRN (11:00)
[2023-01-21] MEDS: CASPOFUNGIN ACETATE 50 MG in SODIUM CHLORIDE 250 ML IVPB SCH (14:40)
[2023-01-21] MEDS ORDERED: INSULIN (NOVOLOG) ASPART 100 UNITS/ML 10ML VIAL ONE (18:50)
[2023-01-21] MEDS: CHLORHEXIDINE GLUCONATE 4% CLEANSER FOR DECOLONIZATION TP SCH (21:39)
[2023-01-22] MEDS: METOPROLOL TARTRATE 25 MG TABLET (FP) PO SCH ×2 (04:00→11:18)
[2023-01-22] MEDS: INSULIN SLIDING SCALE (NOVOLOG) 1 VIAL SQ SCH ×2 (06:45→11:00)
[2023-01-22 07:07] LABS: HEMATOCRIT 25.6 % (35.4-49); HEMOGLOBIN 8.3 GM/dL (11.7-16.9); MCH 31.2 pg (25.7-33.7); MCHC 32.5 g/dl (32.0-35.9); MEAN CELL VOLUME 96.1 fl (80-96); MEAN PLT VOLUME 11.6 fl (7.5-11.1); PLATELET COUNT 62 10^3/uL (134-434); RBC 2.66 M/mm3 (4.00-5.60); RDW 17.1 % (11.9-15.9)
[2023-01-22 07:16] LABS: WHITE BLOOD COUNT 1.7 K/mm3 (4.0-10.0)
[2023-01-22 07:28] LABS: ALBUMIN 2.7 g/dl (3.4-5.0); BLOOD UREA NITROGEN 16.2 mg/dL (7-18)
[2023-01-22 07:29] LABS: CALCIUM 8.6 mg/dL (8.5-10.1)
[2023-01-22 07:33] LABS: TOT PROT 6.3 g/dl (6.4-8.2)
[2023-01-22 07:37] LABS: BILIRUBIN,TOTAL 0.3 mg/dL (0.2-1)
[2023-01-22] MEDS: PANTOPRAZOLE SODIUM 40 MG VIAL IVPUSH SCH (09:01)
[2023-01-22] MEDS: ENOXAPARIN NA (PORCINE) 100 MG/1 ML DISP.SYRIN SQ SCH (09:01)
[2023-01-22 09:11] LABS: ANISOCYTOSIS 0; HELMET CELLS 0; HOWELL-JOLLY BODIES 0; MACROCYTOSIS 0; OVALOCYTE 0; ROULEAU 0; SICKELED CELLS 0; TARGET CELLS 0; TEAR DROP CELLS 0; TOXIC GRANULATION 0
[2023-01-22 14:24] VITALS: BP 133/79; PULSE 95; RESP 22; TEMP 97.4
[2023-01-22] MEDS: CASPOFUNGIN ACETATE 50 MG in SODIUM CHLORIDE 250 ML IVPB SCH (15:18)
== END 2023-01-22 15:05 | DRG 871 ==
LOC: JER 19:41 → JERBED 01-14 00:30 → JICU 01-14 05:54
PROVIDERS: ADMIT Internal Medicine Pulmonary Disease; ATTEND Family Medicine
PROC: 05HM33Z Insertion of Infusion Device into Right Internal Jugular Vein, Percutaneous Approach (ICD-10-PCS; 2023-01-14)
PROC: B543ZZA Ultrasonography of Right Jugular Veins, Guidance (ICD-10-PCS; 2023-01-14)
PROC: 30233N1 Transfusion of Nonautologous Red Blood Cells into Peripheral Vein, Percutaneous Approach (ICD-10-PCS; 2023-01-14)
PROC: 5A1945Z Respiratory Ventilation, 24-96 Consecutive Hours (ICD-10-PCS; 2023-01-14)
PROC: 5A2204Z Restoration of Cardiac Rhythm, Single (ICD-10-PCS; 2023-01-14)
PROC: 0BH17EZ Insertion of Endotracheal Airway into Trachea, Via Natural or Artificial Opening (ICD-10-PCS; principal; 2023-01-17)
DX: A41.89 Other specified sepsis (principal); G93.41 Metabolic encephalopathy; J96.01 Acute respiratory failure with hypoxia; R65.21 Severe sepsis with septic shock; J96.02 Acute respiratory failure with hypercapnia; D61.818 Other pancytopenia; N17.9 Acute kidney failure, unspecified; N13.6 Pyonephrosis; I48.0 Paroxysmal atrial fibrillation; E78.5 Hyperlipidemia, unspecified; I10 Essential (primary) hypertension; E11.9 Type 2 diabetes mellitus without complications; I95.89 Other hypotension; I27.20 Pulmonary hypertension, unspecified; R41.82 Altered mental status, unspecified; R94.31 Abnormal electrocardiogram [ECG] [EKG]; D64.9 Anemia, unspecified; J44.9 Chronic obstructive pulmonary disease, unspecified; N40.0 Benign prostatic hyperplasia without lower urinary tract symptoms; K58.9 Irritable bowel syndrome, unspecified; B95.4 Other streptococcus as the cause of diseases classified elsewhere; Z98.890 Other specified postprocedural states; Z87.19 Personal history of other diseases of the digestive system; Z85.51 Personal history of malignant neoplasm of bladder
CPT/HCPCS: 36415; 36430; 36600; 71045-TC-FY; 71275-TC; 76705-TC; 76775-TC; 80053; 81003; 82272; 82607; 82728; 82747; 82803; 82962; 83516; 83605; 83735; 84100; 84484; 85014; 85025; 85027; 85045; 85610; 85730; 86140; 86255; 86671; 86922; 87040; 87077; 87086; 87635; 93005; 93010; 94002; 97116-GP; 97162-GP; 99285-25; J0282; J0637; P9058

== ENCOUNTER 2023-01-28 16:58 | Inpatient (IN) | payer OTHER, MEDICARE ==
[2023-01-28 19:44] LABS: EPI CELLS 8 /uL (0-25.1); HYALINE CASTS 6 /uL (0-3.1); URINE APPEARANCE CLOUDY; URINE BACTERIA 2649 /uL (0-1359); URINE BILIRUBIN NEGATIVE (NEGATIVE); URINE COLOR RED; URINE GLUCOSE (UA) NEGATIVE (NEGATIVE); URINE KETONE NEGATIVE (NEGATIVE); URINE LEUK ESTERASE 3+ (NEGATIVE); URINE NITRITE NEGATIVE (NEGATIVE); URINE PROTEIN 3+ (NEGATIVE); URINE RBC 5195 /uL (0-23.9); URINE WBC 1287 /uL (0-25.8)
[2023-01-28 19:46] LABS: VENOUS BASE EXCESS 1.3 mmol/L (-2-2); VENOUS O2 SATURATION 32.3 % (70-80); VENOUS PCO2 53.4 mmHg (38-52); VENOUS PH 7.338 (7.310-7.410)
[2023-01-28 19:51] LABS: BASO % 0.9 % (0-2.0); EOS % 1.4 % (0-4.5); HEMATOCRIT 26.7 % (35.4-49); HEMOGLOBIN 8.6 GM/dL (11.7-16.9); MCH 30.8 pg (25.7-33.7); MEAN CELL VOLUME 96.2 fl (80-96); MEAN PLT VOLUME 12.1 fl (7.5-11.1); NEUT % 56.7 % (42.8-82.8); PLATELET COUNT 79 10^3/uL (134-434); RBC 2.78 M/mm3 (4.00-5.60); RDW 18.7 % (11.9-15.9)
[2023-01-28] MEDS ORDERED: CEFTRIAXONE 1 GM in DEXTROSE 5%-WATER - 100 ML IVPB ONE (19:51)
[2023-01-28 19:52] LABS: WHITE BLOOD COUNT 1.7 K/mm3 (4.0-10.0)
[2023-01-28 19:57] LABS: PROTHROMBIN TIME (PATIENT) 47.6 SEC (9.7-13.0)
[2023-01-28 19:59] LABS: ACTIVATED PTT 55.3 SECONDS (25.2-36.5)
[2023-01-28] MEDS ORDERED: CEFTRIAXONE 1 GM/50 ML BAG ONE (19:59)
[2023-01-28 20:09] LABS: INR 4.16 (0.83-1.09)
[2023-01-28 20:17] LABS: CHLORIDE 106 mmol/L (98-107); POTASSIUM 4.1 mmol/L (3.5-5.1); SODIUM 143 mmol/L (136-145)
[2023-01-28 20:18] LABS: CALCIUM 8.2 mg/dL (8.5-10.1)
[2023-01-28 20:19] LABS: ALBUMIN 3.2 g/dl (3.4-5.0); ANION GAP 6 MMOL/L (8-16); CO2 31 mmol/L (21-32); GLUCOSE,RANDOM 162 mg/dL (74-106)
[2023-01-28 20:22] LABS: CREATININE 1.3 mg/dL (0.55-1.3); SGOT/AST 9 U/L (15-37); SGPT/ALT 14 U/L (13-61)
[2023-01-28 20:24] LABS: TOT PROT 7.1 g/dl (6.4-8.2)
[2023-01-28 20:25] LABS: ALK PHOS 53 U/L (45-117)
[2023-01-28 20:29] LABS: BILIRUBIN,TOTAL 1.1 mg/dL (0.2-1)
[2023-01-28 20:49] LABS: ANISOCYTOSIS 1+; MACROCYTOSIS 0; OVALOCYTE 2+
[2023-01-29] MEDS ORDERED: ALBUTEROL SO4 2.5/IPRATROPIUM 0.5 INH SOL 3 ML VIAL.NEB. NEB PRN (00:34)
[2023-01-29 07:29] LABS: HEMATOCRIT 22.9 % (35.4-49); HEMOGLOBIN 7.3 GM/dL (11.7-16.9); MCHC 31.9 g/dl (32.0-35.9); MEAN PLT VOLUME 12.1 fl (7.5-11.1); PLATELET COUNT 59 10^3/uL (134-434); RBC 2.36 M/mm3 (4.00-5.60); RDW 18.2 % (11.9-15.9)
[2023-01-29 07:41] LABS: POTASSIUM 3.9 mmol/L (3.5-5.1)
[2023-01-29 07:43] LABS: WHITE BLOOD COUNT 1.3 K/mm3 (4.0-10.0)
[2023-01-29 07:43] LABS: BLOOD UREA NITROGEN 17.9 mg/dL (7-18)
[2023-01-29 07:47] LABS: CREATININE 1.3 mg/dL (0.55-1.3)
[2023-01-29 08:55] LABS: ANISOCYTOSIS 0; MACROCYTOSIS 0
[2023-01-29] MEDS ORDERED: PIPERACILLIN/TAZOB 3.375 GM 3.375 GM/50 ML BAG IVPB ONE (09:37)
[2023-01-29] MEDS ORDERED: PIPERACILLIN/TAZOB 3.375 GM 3.375 GM in DEXTROSE 5%-WATER - 50 ML IVPB SCH ×3 (10:00)
[2023-01-29] MEDS: PIPERACILLIN/TAZOB 3.375 GM 3.375 GM in DEXTROSE 5%-WATER - 50 ML IVPB SCH (15:31)
[2023-01-29] MEDS ORDERED: MEROPENEM 1 GM VIAL (RESTRICTED TO ID) IVPB ONE (17:58)
[2023-01-29] MEDS: RIVAROXABAN 20 MG TABLET PO SCH (18:17)
[2023-01-29] MEDS: MEROPENEM 1 GM in DEXTROSE 5%-WATER 100 ML IVPB SCH (18:17)
[2023-01-29 20:42] LABS: POTASSIUM 4.4 mmol/L (3.5-5.1)
[2023-01-29 20:43] LABS: CALCIUM 8.4 mg/dL (8.5-10.1)
[2023-01-29 20:44] LABS: ALBUMIN 3.1 g/dl (3.4-5.0); BLOOD UREA NITROGEN 24.1 mg/dL (7-18)
[2023-01-29 20:47] LABS: CREATININE 1.6 mg/dL (0.55-1.3)
[2023-01-29 20:49] LABS: BILIRUBIN,TOTAL 1.7 mg/dL (0.2-1); TOT PROT 7.1 g/dl (6.4-8.2)
[2023-01-29 20:52] LABS: N-TERMINAL BNP 4920.1 pg/ml (5-450)
[2023-01-29] MEDS: ATORVASTATIN CA 40 MG TABLET (FP) PO SCH (21:01)
[2023-01-29 21:19] LABS: HEMATOCRIT 33.1 % (35.4-49); HEMOGLOBIN 10.4 GM/dL (11.7-16.9); MCH 30.3 pg (25.7-33.7); MCHC 31.5 g/dl (32.0-35.9); MEAN CELL VOLUME 96.2 fl (80-96); RBC 3.45 M/mm3 (4.00-5.60); RDW 18.5 % (11.9-15.9)
[2023-01-29 21:30] LABS: WHITE BLOOD COUNT 1.3 K/mm3 (4.0-10.0)
[2023-01-29 22:01] LABS: MEAN PLT VOLUME 12.7 fl (7.5-11.1); PLATELET COUNT 115 10^3/uL (134-434)
[2023-01-29] MEDS ORDERED: LACTATED RINGERS SOLUTION 1000 ML INFUS.BAG IV ONE ×2 (22:08→22:58)
[2023-01-29 22:11] LABS: ARTERIAL BLD GAS O2 SATURATION 99.3 % (95-98); ARTERIAL BLOOD GAS BASE EXCESS 1.8 mmol/L (-2-2); ARTERIAL BLOOD GAS PO2 192.7 mmHg (80-100); ARTERIAL BLOOD GAS pH 7.414 (7.350-7.450)
[2023-01-29 22:13] LABS: ALLENS TEST POSITIVE; VENT RATE 16
[2023-01-29 23:08] VITALS: BMI 26.6
[2023-01-30] MEDS: MEROPENEM 1 GM in DEXTROSE 5%-WATER 100 ML IVPB SCH ×3 (02:40→19:01)
[2023-01-30] MEDS ORDERED: LACTATED RINGERS SOLUTION 1000 ML INFUS.BAG IV ONE (04:28)
[2023-01-30] MEDS: PHENYLEPHRINE NS PREMIX 50,000 MCG/500 ML BAG CVP SCH (06:33)
[2023-01-30 07:19] LABS: HEMATOCRIT 24.8 % (35.4-49); HEMOGLOBIN 8.1 GM/dL (11.7-16.9); MCH 30.7 pg (25.7-33.7); MCHC 32.7 g/dl (32.0-35.9); PLATELET COUNT 77 10^3/uL (134-434); RBC 2.64 M/mm3 (4.00-5.60); RDW 17.8 % (11.9-15.9)
[2023-01-30 07:38] LABS: POTASSIUM 4.3 mmol/L (3.5-5.1)
[2023-01-30 07:40] LABS: CALCIUM 7.8 mg/dL (8.5-10.1)
[2023-01-30 07:41] LABS: ALBUMIN 2.6 g/dl (3.4-5.0); BLOOD UREA NITROGEN 33.9 mg/dL (7-18); MAGNESIUM 1.8 mg/dL (1.8-2.4)
[2023-01-30 07:43] LABS: BILIRUBIN,DIRECT 0.2 mg/dL (0.0-0.2)
[2023-01-30 07:44] LABS: CREATININE 1.5 mg/dL (0.55-1.3); PHOSPHOROUS 4.6 mg/dL (2.5-4.9)
[2023-01-30 07:45] LABS: BILIRUBIN,TOTAL 0.6 mg/dL (0.2-1); TOT PROT 6.2 g/dl (6.4-8.2)
[2023-01-30 07:49] LABS: N-TERMINAL BNP 3031.2 pg/ml (5-450)
[2023-01-30 09:57] LABS: INR 3.48 (0.83-1.09); PROTHROMBIN TIME (PATIENT) 39.9 SEC (9.7-13.0)
[2023-01-30 10:00] LABS: ACTIVATED PTT 41.1 SECONDS (25.2-36.5)
[2023-01-30] MEDS ORDERED: SODIUM CHLORIDE 1,000 ML IV SCH (17:30)
[2023-01-30] MEDS: RIVAROXABAN 20 MG TABLET PO SCH (19:01)
[2023-01-30] MEDS: ATORVASTATIN CA 40 MG TABLET (FP) PO SCH (21:20)
[2023-01-30] MEDS ORDERED: TBO-FILGRASTIM 480 MCG/0.8 ML DISP.SYRIN SQ ONE (22:30)
[2023-01-31] MEDS: MEROPENEM 1 GM in DEXTROSE 5%-WATER 100 ML IVPB SCH ×3 (02:51→18:44)
[2023-01-31] MEDS: PHENYLEPHRINE NS PREMIX 50,000 MCG/500 ML BAG CVP SCH (04:47)
[2023-01-31 07:51] LABS: INR 3.23 (0.83-1.09)
[2023-01-31 07:54] LABS: ACTIVATED PTT 39.3 SECONDS (25.2-36.5); HEMATOCRIT 23.2 % (35.4-49); HEMOGLOBIN 7.6 GM/dL (11.7-16.9); MCHC 32.6 g/dl (32.0-35.9); MEAN CELL VOLUME 94.9 fl (80-96); MEAN PLT VOLUME 13.9 fl (7.5-11.1); PLATELET COUNT 63 10^3/uL (134-434); RBC 2.45 M/mm3 (4.00-5.60); RDW 17.6 % (11.9-15.9)
[2023-01-31 07:56] LABS: WHITE BLOOD COUNT 1.8 K/mm3 (4.0-10.0)
[2023-01-31 08:31] LABS: POTASSIUM 3.8 mmol/L (3.5-5.1)
[2023-01-31 08:35] LABS: CALCIUM 7.7 mg/dL (8.5-10.1)
[2023-01-31 08:36] LABS: ALBUMIN 2.6 g/dl (3.4-5.0); BLOOD UREA NITROGEN 21.6 mg/dL (7-18); MAGNESIUM 1.9 mg/dL (1.8-2.4)
[2023-01-31 08:39] LABS: CREATININE 1.1 mg/dL (0.55-1.3); PHOSPHOROUS 3.2 mg/dL (2.5-4.9)
[2023-01-31 08:41] LABS: BILIRUBIN,TOTAL 0.5 mg/dL (0.2-1)
[2023-01-31 11:19] LABS: ANISOCYTOSIS 2+; MACROCYTOSIS 1+; OVALOCYTE 2+
[2023-01-31] MEDS: TBO-FILGRASTIM 480 MCG/0.8 ML DISP.SYRIN SQ SCH (11:30)
[2023-01-31] MEDS: LACTATED RINGERS SOLUTION 1,000 ML/1,000 ML INFUS.BAG IV SCH (11:30)
[2023-01-31 11:38] LABS: PLATELET ESTIMATE DECREASED
[2023-01-31] MEDS: POLYETHYLENE GLYCOL (HEALTHYLAX) 3350 17 GM PACKET PO SCH (13:23)
[2023-01-31] MEDS: RIVAROXABAN 20 MG TABLET PO SCH (18:45)
[2023-01-31] MEDS: ATORVASTATIN CA 40 MG TABLET (FP) PO SCH (22:26)
[2023-02-01] MEDS: MEROPENEM 1 GM in DEXTROSE 5%-WATER 100 ML IVPB SCH ×3 (03:00→17:07)
[2023-02-01 07:42] LABS: HEMATOCRIT 24.1 % (35.4-49); HEMOGLOBIN 7.8 GM/dL (11.7-16.9); MCH 30.8 pg (25.7-33.7); MCHC 32.4 g/dl (32.0-35.9); MEAN CELL VOLUME 95.2 fl (80-96); MEAN PLT VOLUME 11.7 fl (7.5-11.1); PLATELET COUNT 54 10^3/uL (134-434); RBC 2.53 M/mm3 (4.00-5.60); RDW 17.7 % (11.9-15.9); WHITE BLOOD COUNT 2.8 K/mm3 (4.0-10.0)
[2023-02-01 07:51] LABS: INR 2.99 (0.83-1.09); PROTHROMBIN TIME (PATIENT) 34.3 SEC (9.7-13.0)
[2023-02-01 07:56] LABS: POTASSIUM 4.1 mmol/L (3.5-5.1)
[2023-02-01 07:58] LABS: CALCIUM 8.4 mg/dL (8.5-10.1)
[2023-02-01 07:59] LABS: ALBUMIN 2.8 g/dl (3.4-5.0); BLOOD UREA NITROGEN 12.6 mg/dL (7-18)
[2023-02-01 08:02] LABS: CREATININE 1.1 mg/dL (0.55-1.3)
[2023-02-01 08:04] LABS: BILIRUBIN,TOTAL 0.5 mg/dL (0.2-1); TOT PROT 6.4 g/dl (6.4-8.2)
[2023-02-01] MEDS: TBO-FILGRASTIM 480 MCG/0.8 ML DISP.SYRIN SQ SCH (09:17)
[2023-02-01] MEDS: POLYETHYLENE GLYCOL (HEALTHYLAX) 3350 17 GM PACKET PO SCH (09:17)
[2023-02-01] MEDS: LACTATED RINGERS SOLUTION 1,000 ML/1,000 ML INFUS.BAG IV SCH ×2 (09:18→15:08)
[2023-02-01 10:10] LABS: ANISOCYTOSIS 2+; MACROCYTOSIS 0; OVALOCYTE 2+
[2023-02-01] MEDS: LINEZOLID 600 MG PREMIX BAG 600 MG/300 ML BAG IVPB SCH (12:24)
[2023-02-01] MEDS: RIVAROXABAN 20 MG TABLET PO SCH (17:07)
[2023-02-01] MEDS: ATORVASTATIN CA 40 MG TABLET (FP) PO SCH (21:48)
[2023-02-02] MEDS: LINEZOLID 600 MG PREMIX BAG 600 MG/300 ML BAG IVPB SCH ×2 (00:51→10:40)
[2023-02-02] MEDS: MEROPENEM 1 GM in DEXTROSE 5%-WATER 100 ML IVPB SCH ×3 (02:18→17:17)
[2023-02-02 07:24] LABS: HEMATOCRIT 24.7 % (35.4-49); HEMOGLOBIN 8.1 GM/dL (11.7-16.9); MCH 31.1 pg (25.7-33.7); MCHC 32.7 g/dl (32.0-35.9); MEAN PLT VOLUME 11.6 fl (7.5-11.1); PLATELET COUNT 56 10^3/uL (134-434); RBC 2.61 M/mm3 (4.00-5.60); RDW 17.4 % (11.9-15.9)
[2023-02-02 07:38] LABS: POTASSIUM 3.8 mmol/L (3.5-5.1)
[2023-02-02 07:43] LABS: CALCIUM 8.3 mg/dL (8.5-10.1); MAGNESIUM 1.7 mg/dL (1.8-2.4)
[2023-02-02 07:44] LABS: BLOOD UREA NITROGEN 9.8 mg/dL (7-18)
[2023-02-02 07:47] LABS: PHOSPHOROUS 2.8 mg/dL (2.5-4.9)
[2023-02-02] MEDS: POLYETHYLENE GLYCOL (HEALTHYLAX) 3350 17 GM PACKET PO SCH (09:08)
[2023-02-02] MEDS: TBO-FILGRASTIM 480 MCG/0.8 ML DISP.SYRIN SQ SCH (10:40)
[2023-02-02] MEDS: RIVAROXABAN 20 MG TABLET PO SCH ×2 (17:17→22:07)
[2023-02-02 18:43] LABS: EPI CELLS >36 /uL (0-25.1); HYALINE CASTS 156 /uL (0-3.1); PH,URINE 6.5 (5.0-8.0); URINE APPEARANCE TURBID; URINE BILIRUBIN 1+ (NEGATIVE); URINE COLOR RED; URINE GLUCOSE (UA) NEGATIVE (NEGATIVE); URINE KETONE NEGATIVE (NEGATIVE); URINE LEUK ESTERASE 3+ (NEGATIVE); URINE NITRITE POSITIVE (NEGATIVE); URINE PROTEIN 3+ (NEGATIVE); URINE UROBILINOGEN 0.2 mg/dL (0.2-1.0); URINE WBC 59 /uL (0-25.8)
[2023-02-02 19:08] LABS: HEMATOCRIT 26.6 % (35.4-49); HEMOGLOBIN 8.6 GM/dL (11.7-16.9); MCHC 32.4 g/dl (32.0-35.9); MEAN CELL VOLUME 95.7 fl (80-96); MEAN PLT VOLUME 12.2 fl (7.5-11.1); PLATELET COUNT 62 10^3/uL (134-434); RBC 2.78 M/mm3 (4.00-5.60); RDW 17.4 % (11.9-15.9); WHITE BLOOD COUNT 4.4 K/mm3 (4.0-10.0)
[2023-02-02 19:49] LABS: URINE BACTERIA 27 /uL (0-1359); URINE RBC 35634 /uL (0-23.9)
[2023-02-02 19:50] LABS: YEAST NONE SEEN (NEGATIVE)
[2023-02-02] MEDS: ATORVASTATIN CA 40 MG TABLET (FP) PO SCH (21:45)
[2023-02-03] MEDS: MEROPENEM 1 GM in DEXTROSE 5%-WATER 100 ML IVPB SCH ×3 (02:23→18:44)
[2023-02-03 07:12] LABS: HEMOGLOBIN 8.5 GM/dL (11.7-16.9); MCH 30.7 pg (25.7-33.7); MCHC 32.5 g/dl (32.0-35.9); MEAN CELL VOLUME 94.5 fl (80-96); MEAN PLT VOLUME 11.4 fl (7.5-11.1); PLATELET COUNT 58 10^3/uL (134-434); RBC 2.75 M/mm3 (4.00-5.60); RDW 17.6 % (11.9-15.9); WHITE BLOOD COUNT 4.4 K/mm3 (4.0-10.0)
[2023-02-03 07:35] LABS: POTASSIUM 3.9 mmol/L (3.5-5.1)
[2023-02-03 07:37] LABS: BLOOD UREA NITROGEN 14.3 mg/dL (7-18); CALCIUM 8.6 mg/dL (8.5-10.1); MAGNESIUM 1.8 mg/dL (1.8-2.4)
[2023-02-03 07:38] LABS: ALBUMIN 3.1 g/dl (3.4-5.0)
[2023-02-03 07:41] LABS: CREATININE 1.1 mg/dL (0.55-1.3); PHOSPHOROUS 2.9 mg/dL (2.5-4.9)
[2023-02-03 07:42] LABS: BILIRUBIN,TOTAL 0.5 mg/dL (0.2-1); TOT PROT 6.9 g/dl (6.4-8.2)
[2023-02-03 08:27] LABS: INR 3.12 (0.83-1.09); PROTHROMBIN TIME (PATIENT) 35.8 SEC (9.7-13.0)
[2023-02-03 08:52] LABS: ANISOCYTOSIS 0; HELMET CELLS 0; HOWELL-JOLLY BODIES 0; MACROCYTOSIS 0; OVALOCYTE 0; ROULEAU 0; SICKELED CELLS 0; TARGET CELLS 0; TEAR DROP CELLS 0; TOXIC GRANULATION 0
[2023-02-03] MEDS: POLYETHYLENE GLYCOL (HEALTHYLAX) 3350 17 GM PACKET PO SCH ×2 (09:18→10:00)
[2023-02-03] MEDS: TBO-FILGRASTIM 480 MCG/0.8 ML DISP.SYRIN SQ SCH (12:00)
[2023-02-03 18:31] LABS: HEMATOCRIT 26.5 % (35.4-49); HEMOGLOBIN 8.5 GM/dL (11.7-16.9); MCH 30.9 pg (25.7-33.7); MCHC 32.1 g/dl (32.0-35.9); MEAN CELL VOLUME 96.3 fl (80-96); RBC 2.75 M/mm3 (4.00-5.60); RDW 18.2 % (11.9-15.9); WHITE BLOOD COUNT 4.4 K/mm3 (4.0-10.0)
[2023-02-03] MEDS: ATORVASTATIN CA 40 MG TABLET (FP) PO SCH (20:59)
[2023-02-03 21:12] LABS: MEAN PLT VOLUME 13.9 fl (7.5-11.1); PLATELET COUNT 75 10^3/uL (134-434)
[2023-02-04] MEDS: MEROPENEM 1 GM in DEXTROSE 5%-WATER 100 ML IVPB SCH ×3 (01:16→18:05)
[2023-02-04 07:08] LABS: HEMATOCRIT 23.8 % (35.4-49); HEMOGLOBIN 7.7 GM/dL (11.7-16.9); MCH 30.4 pg (25.7-33.7); MCHC 32.3 g/dl (32.0-35.9); MEAN CELL VOLUME 94.1 fl (80-96); MEAN PLT VOLUME 11.4 fl (7.5-11.1); PLATELET COUNT 54 10^3/uL (134-434); RBC 2.53 M/mm3 (4.00-5.60); RDW 17.7 % (11.9-15.9); WHITE BLOOD COUNT 4.2 K/mm3 (4.0-10.0)
[2023-02-04 07:11] LABS: INR 1.73 (0.83-1.09)
[2023-02-04 07:24] LABS: POTASSIUM 3.8 mmol/L (3.5-5.1)
[2023-02-04 07:36] LABS: BLOOD UREA NITROGEN 16.8 mg/dL (7-18); CALCIUM 8.5 mg/dL (8.5-10.1); MAGNESIUM 1.6 mg/dL (1.8-2.4)
[2023-02-04 07:37] LABS: ALBUMIN 2.8 g/dl (3.4-5.0)
[2023-02-04 07:39] LABS: CREATININE 1.1 mg/dL (0.55-1.3)
[2023-02-04 07:40] LABS: PHOSPHOROUS 3.4 mg/dL (2.5-4.9)
[2023-02-04 07:41] LABS: TOT PROT 6.5 g/dl (6.4-8.2)
[2023-02-04 07:42] LABS: BILIRUBIN,TOTAL 0.4 mg/dL (0.2-1)
[2023-02-04] MEDS: POLYETHYLENE GLYCOL (HEALTHYLAX) 3350 17 GM PACKET PO SCH (09:24)
[2023-02-04] MEDS: TBO-FILGRASTIM 480 MCG/0.8 ML DISP.SYRIN SQ SCH (11:24)
[2023-02-04] MEDS ORDERED: MAGNESIUM 1GM/D5W 100ML - 100 ML IVPB IVPB ONE (17:52)
[2023-02-04] MEDS: ATORVASTATIN CA 40 MG TABLET (FP) PO SCH (21:34)
[2023-02-05] MEDS: MEROPENEM 1 GM in DEXTROSE 5%-WATER 100 ML IVPB SCH ×3 (02:13→17:37)
[2023-02-05 07:01] LABS: HEMATOCRIT 23.6 % (35.4-49); HEMOGLOBIN 7.6 GM/dL (11.7-16.9); MCH 30.9 pg (25.7-33.7); MCHC 32.2 g/dl (32.0-35.9); MEAN CELL VOLUME 96.2 fl (80-96); MEAN PLT VOLUME 11.9 fl (7.5-11.1); PLATELET COUNT 50 10^3/uL (134-434); RBC 2.46 M/mm3 (4.00-5.60); RDW 18.3 % (11.9-15.9); WHITE BLOOD COUNT 5.1 K/mm3 (4.0-10.0)
[2023-02-05 07:11] LABS: POTASSIUM 3.9 mmol/L (3.5-5.1)
[2023-02-05 07:16] LABS: ALBUMIN 2.9 g/dl (3.4-5.0); BLOOD UREA NITROGEN 15.4 mg/dL (7-18); CALCIUM 8.4 mg/dL (8.5-10.1)
[2023-02-05 07:17] LABS: MAGNESIUM 1.9 mg/dL (1.8-2.4)
[2023-02-05 07:19] LABS: PHOSPHOROUS 3.5 mg/dL (2.5-4.9)
[2023-02-05 07:20] LABS: BILIRUBIN,TOTAL 0.6 mg/dL (0.2-1); TOT PROT 6.6 g/dl (6.4-8.2)
[2023-02-05 07:23] LABS: INR 1.47 (0.83-1.09)
[2023-02-05 07:24] LABS: ACTIVATED PTT 34.1 SECONDS (25.2-36.5)
[2023-02-05 08:56] LABS: ANISOCYTOSIS 0; HELMET CELLS 0; HOWELL-JOLLY BODIES 0; MACROCYTOSIS 0; OVALOCYTE 0; ROULEAU 0; SICKELED CELLS 0; TARGET CELLS 0; TEAR DROP CELLS 0; TOXIC GRANULATION 0
[2023-02-05] MEDS: POLYETHYLENE GLYCOL (HEALTHYLAX) 3350 17 GM PACKET PO SCH (09:48)
[2023-02-05] MEDS ORDERED: SODIUM CHLORIDE 500 ML IV ONE (12:00)
[2023-02-05] MEDS ORDERED: MIDAZOLAM HCL 2 MG/2 ML SINGLE DOSE VIAL ONE (12:04)
[2023-02-05] MEDS ORDERED: FENTANYL CITRATE/PF 50 MCG/ML VIAL ONE ×2 (12:04→12:28)
[2023-02-05] MEDS ORDERED: FENTANYL CITRATE/PF 50 MCG/ML VIAL IVPUSH ONE ×2 (12:12→12:30)
[2023-02-05] MEDS ORDERED: MIDAZOLAM HCL 2 MG/2 ML SINGLE DOSE VIAL IVPUSH ONE (12:29)
[2023-02-05] MEDS: TBO-FILGRASTIM 480 MCG/0.8 ML DISP.SYRIN SQ SCH (13:21)
[2023-02-05] MEDS: ATORVASTATIN CA 40 MG TABLET (FP) PO SCH (21:10)
[2023-02-06] MEDS: MEROPENEM 1 GM in DEXTROSE 5%-WATER 100 ML IVPB SCH ×3 (01:28→17:49)
[2023-02-06 07:35] LABS: HEMATOCRIT 22.6 % (35.4-49); HEMOGLOBIN 7.4 GM/dL (11.7-16.9); MCH 31.4 pg (25.7-33.7); MEAN CELL VOLUME 95.1 fl (80-96); MEAN PLT VOLUME 11.8 fl (7.5-11.1); PLATELET COUNT 51 10^3/uL (134-434); RBC 2.38 M/mm3 (4.00-5.60); RDW 17.7 % (11.9-15.9); WHITE BLOOD COUNT 5.5 K/mm3 (4.0-10.0)
[2023-02-06 08:08] LABS: CALCIUM 8.3 mg/dL (8.5-10.1)
[2023-02-06 08:09] LABS: BLOOD UREA NITROGEN 19.8 mg/dL (7-18)
[2023-02-06 08:11] LABS: CREATININE 1.1 mg/dL (0.55-1.3)
[2023-02-06] MEDS: POLYETHYLENE GLYCOL (HEALTHYLAX) 3350 17 GM PACKET PO SCH (09:22)
[2023-02-06] MEDS: TBO-FILGRASTIM 480 MCG/0.8 ML DISP.SYRIN SQ SCH (11:13)
[2023-02-06] MEDS: ATORVASTATIN CA 40 MG TABLET (FP) PO SCH (22:03)
[2023-02-07] MEDS: MEROPENEM 1 GM in DEXTROSE 5%-WATER 100 ML IVPB SCH ×2 (03:48→09:31)
[2023-02-07] MEDS: POLYETHYLENE GLYCOL (HEALTHYLAX) 3350 17 GM PACKET PO SCH (09:33)
[2023-02-07] MEDS: TBO-FILGRASTIM 480 MCG/0.8 ML DISP.SYRIN SQ SCH (11:33)
[2023-02-07 12:17] LABS: HEMATOCRIT 30.5 % (35.4-49); HEMOGLOBIN 9.9 GM/dL (11.7-16.9); MCH 31.2 pg (25.7-33.7); MCHC 32.6 g/dl (32.0-35.9); MEAN CELL VOLUME 95.9 fl (80-96); MEAN PLT VOLUME 14.8 fl (7.5-11.1); PLATELET COUNT 52 10^3/uL (134-434); RBC 3.18 M/mm3 (4.00-5.60); RDW 15.8 % (11.9-15.9); WHITE BLOOD COUNT 5.5 K/mm3 (4.0-10.0)
[2023-02-07] MEDS: ATORVASTATIN CA 40 MG TABLET (FP) PO SCH (21:34)
[2023-02-08] MEDS: POLYETHYLENE GLYCOL (HEALTHYLAX) 3350 17 GM PACKET PO SCH (10:45)
[2023-02-08] MEDS: TBO-FILGRASTIM 480 MCG/0.8 ML DISP.SYRIN SQ SCH (11:17)
[2023-02-08 13:44] LABS: HEMATOCRIT 29.2 % (35.4-49); HEMOGLOBIN 9.7 GM/dL (11.7-16.9); MCH 31.5 pg (25.7-33.7); MCHC 33.4 g/dl (32.0-35.9); MEAN CELL VOLUME 94.3 fl (80-96); RBC 3.09 M/mm3 (4.00-5.60); RDW 16.5 % (11.9-15.9); WHITE BLOOD COUNT 4.2 K/mm3 (4.0-10.0)
[2023-02-08 14:05] LABS: MEAN PLT VOLUME 15.3 fl (7.5-11.1); PLATELET COUNT 42 10^3/uL (134-434)
[2023-02-08 16:31] VITALS: BP 124/62; PULSE 108; RESP 19; TEMP 98.5
== END 2023-02-08 17:55 | DRG 871 ==
LOC: JER 16:58 → JERBED 19:57 → JICU 01-29 20:32 → J4W 02-06 15:41
PROVIDERS: ADMIT Internal Medicine; ATTEND Family Medicine
PROC: 30233N1 Transfusion of Nonautologous Red Blood Cells into Peripheral Vein, Percutaneous Approach (ICD-10-PCS; 2023-01-29)
PROC: 0T9430Z Drainage of Left Kidney Pelvis with Drainage Device, Percutaneous Approach (ICD-10-PCS; principal; 2023-02-05)
DX: A41.89 Other specified sepsis (principal); G93.41 Metabolic encephalopathy; J96.01 Acute respiratory failure with hypoxia; J96.02 Acute respiratory failure with hypercapnia; R65.21 Severe sepsis with septic shock; N13.6 Pyonephrosis; D61.818 Other pancytopenia; I48.0 Paroxysmal atrial fibrillation; Z85.51 Personal history of malignant neoplasm of bladder; I10 Essential (primary) hypertension; E78.5 Hyperlipidemia, unspecified; D64.9 Anemia, unspecified; R31.0 Gross hematuria; E11.9 Type 2 diabetes mellitus without complications
CPT/HCPCS: 0241U-QW; 36415; 36430; 36600; 50432; 70450-TC; 71045-TC-FY; 74177-TC; 80048; 80053; 80076; 81003; 82272; 82533; 82550; 82553; 82728; 82803; 82962; 83540; 83550; 83605; 83735; 83880; 84100; 84484; 85025; 85027; 85384; 85610; 85730; 86850; 86900; 86901; 86922; 87040; 87077; 87086; 87102; 87116; 87186; 87206; 87210; 88108; 93005; 93010; 94660; 97116-GP; 97162-GP; 99285-25; J1447; P9058; Q9967

== ENCOUNTER 2023-02-16 15:38 | Inpatient (IN) | payer OTHER, MEDICARE ==
[2023-02-16] MEDS ORDERED: MEROPENEM 1 GM in DEXTROSE 5%-WATER 100 ML IVPB ONE (16:09)
[2023-02-16] MEDS ORDERED: LACTATED RINGERS SOLUTION 1000 ML INFUS.BAG IV ONE ×2 (16:15→16:33)
[2023-02-16] MEDS ORDERED: MEROPENEM 1 GM VIAL (RESTRICTED TO ID) IVPB ONE (16:20)
[2023-02-16 16:33] LABS: VENOUS BASE EXCESS 4.7 mmol/L (-2-2); VENOUS O2 SATURATION 88.6 % (70-80); VENOUS PCO2 39.2 mmHg (38-52); VENOUS PH 7.483 (7.310-7.410)
[2023-02-16 16:37] LABS: BASO % 1.2 % (0-2.0); EOS % 0.5 % (0-4.5); HEMATOCRIT 18.1 % (35.4-49); LYMPH % 22.8 % (8-40); MEAN CELL VOLUME 94.1 fl (80-96); MONO % 18.3 % (3.8-10.2); NEUT % 57.2 % (42.8-82.8); PLATELET COUNT 40 10^3/uL (134-434); RBC 1.93 M/mm3 (4.00-5.60); RDW 17.2 % (11.9-15.9)
[2023-02-16] MEDS ORDERED: BENZOIN/ALOE VERA/STORAX/TOLU 58 ML BOTTLE ONE (16:39)
[2023-02-16 16:41] LABS: WHITE BLOOD COUNT 1.9 K/mm3 (4.0-10.0)
[2023-02-16 16:43] LABS: POTASSIUM 4.2 mmol/L (3.5-5.1)
[2023-02-16 16:45] LABS: CALCIUM 7.6 mg/dL (8.5-10.1)
[2023-02-16 16:46] LABS: ALBUMIN 2.8 g/dl (3.4-5.0); BLOOD UREA NITROGEN 27.2 mg/dL (7-18)
[2023-02-16 16:47] LABS: PROTHROMBIN TIME (PATIENT) 60.9 SEC (9.7-13.0)
[2023-02-16 16:49] LABS: CREATININE 1.6 mg/dL (0.55-1.3)
[2023-02-16 16:50] LABS: ACTIVATED PTT 43.9 SECONDS (25.2-36.5); BILIRUBIN,TOTAL 1.1 mg/dL (0.2-1); TOT PROT 6.4 g/dl (6.4-8.2)
[2023-02-16 16:55] LABS: INR 5.34 (0.83-1.09)
[2023-02-16] MEDS ORDERED: ALBUTEROL SO4 2.5/IPRATROPIUM 0.5 INH SOL 3 ML VIAL.NEB. NEB ONE ×2 (17:05→17:12)
[2023-02-16 18:23] LABS: N-TERMINAL BNP 8029.2 pg/ml (5-450)
[2023-02-16 18:45] LABS: EPI CELLS >36 /uL (0-25.1); HYALINE CASTS 10 /uL (0-3.1); PH,URINE 5.5 (5.0-8.0); URINE APPEARANCE TURBID; URINE BACTERIA >9,000 /uL (0-1359); URINE BILIRUBIN NEGATIVE (NEGATIVE); URINE COLOR ORANGE; URINE GLUCOSE (UA) NEGATIVE (NEGATIVE); URINE KETONE NEGATIVE (NEGATIVE); URINE LEUK ESTERASE 3+ (NEGATIVE); URINE NITRITE NEGATIVE (NEGATIVE); URINE PROTEIN 3+ (NEGATIVE); URINE WBC 26148 /uL (0-25.8)
[2023-02-16 18:48] LABS: EPI CELLS >36 /uL (0-25.1); HYALINE CASTS 7 /uL (0-3.1); PH,URINE 5.5 (5.0-8.0); URINE APPEARANCE TURBID; URINE BACTERIA 8703 /uL (0-1359); URINE BILIRUBIN NEGATIVE (NEGATIVE); URINE COLOR DK YELLOW; URINE GLUCOSE (UA) NEGATIVE (NEGATIVE); URINE KETONE NEGATIVE (NEGATIVE); URINE LEUK ESTERASE 3+ (NEGATIVE); URINE NITRITE NEGATIVE (NEGATIVE); URINE PROTEIN 3+ (NEGATIVE); URINE RBC 151 /uL (0-23.9); URINE WBC 31022 /uL (0-25.8)
[2023-02-16] MEDS ORDERED: FUROSEMIDE 40 MG/4 ML INJECTABLE VIAL IVPUSH ONE (19:03)
[2023-02-16] MEDS ORDERED: FUROSEMIDE 40 MG/4 ML INJECTABLE VIAL ONE (19:42)
[2023-02-16 19:44] LABS: URINE RBC 8100 /uL (0-23.9); YEAST PRESENT (NEGATIVE)
[2023-02-16 19:53] LABS: URINE CRYSTALS PRESENT /hpf
[2023-02-16] MEDS ORDERED: ACETAMINOPHEN 1000 MG/100 ML BAG IVPB ONE (20:24)
[2023-02-16] MEDS ORDERED: ACETAMINOPHEN INJECTION 100 ML IVPB ONE (20:35)
[2023-02-17] MEDS ORDERED: MEROPENEM 1 GM VIAL (RESTRICTED TO ID) IVPB ONE ×2 (00:50→07:46)
[2023-02-17] MEDS: MEROPENEM 1 GM in DEXTROSE 5%-WATER 100 ML IVPB SCH ×3 (01:02→17:04)
[2023-02-17] MEDS ORDERED: ACETAMINOPHEN INJECTION 100 ML IVPB ONE (03:35)
[2023-02-17] MEDS ORDERED: ACETAMINOPHEN 1000 MG/100 ML BAG IVPB ONE ×2 (03:35→09:11)
[2023-02-17] MEDS ORDERED: POLYETHYLENE GLYCOL (HEALTHYLAX) 3350 17 GM PACKET PO PRN ×2 (05:26→17:04)
[2023-02-17] MEDS ORDERED: SODIUM CHLORIDE 500 ML IV STA (07:29)
[2023-02-17] MEDS ORDERED: SODIUM CHLORIDE 1,000 ML IV SCH (07:30)
[2023-02-17] MEDS ORDERED: MUPIROCIN 2% TOPICAL OINTMENT FOR DECOLONIZATION NS SCH (10:00)
[2023-02-17 11:10] LABS: ARTERIAL BLD GAS O2 SATURATION 99.4 % (95-98); ARTERIAL BLOOD GAS BASE EXCESS -3.5 mmol/L (-2-2); ARTERIAL BLOOD GAS PO2 208.1 mmHg (80-100); ARTERIAL BLOOD GAS pH 7.414 (7.350-7.450)
[2023-02-17 11:11] LABS: HEMATOCRIT 21.7 % (35.4-49); HEMOGLOBIN 7.1 GM/dL (11.7-16.9); MCH 30.2 pg (25.7-33.7); MCHC 32.8 g/dl (32.0-35.9); MEAN CELL VOLUME 92.2 fl (80-96); MEAN PLT VOLUME 12.6 fl (7.5-11.1); PLATELET COUNT 37 10^3/uL (134-434); RBC 2.35 M/mm3 (4.00-5.60); RDW 18.4 % (11.9-15.9)
[2023-02-17 11:11] LABS: ALLENS TEST POSITIVE
[2023-02-17 11:12] LABS: VENT MODE S/T; VENT RATE 12
[2023-02-17 11:14] LABS: WHITE BLOOD COUNT 1.6 K/mm3 (4.0-10.0)
[2023-02-17 11:18] LABS: INR 2.68 (0.83-1.09); PROTHROMBIN TIME (PATIENT) 30.8 SEC (9.7-13.0)
[2023-02-17] MEDS ORDERED: NOREPINEPHRINE BITARTRATE 4,000 MCG in DEXTROSE 5%-WATER - 496 ML IV SCH (11:30)
[2023-02-17 11:35] LABS: POTASSIUM 4.3 mmol/L (3.5-5.1)
[2023-02-17 11:36] LABS: CALCIUM 7.3 mg/dL (8.5-10.1)
[2023-02-17 11:37] LABS: MAGNESIUM 1.8 mg/dL (1.8-2.4)
[2023-02-17 11:40] LABS: CREATININE 1.9 mg/dL (0.55-1.3)
[2023-02-17 11:46] LABS: ANISOCYTOSIS 1+; MACROCYTOSIS 0
[2023-02-17] MEDS ORDERED: SODIUM CHLORIDE 1,000 ML IV STA (12:33)
[2023-02-17 13:53] VITALS: BMI 29.0
[2023-02-17] MEDS: INSULIN SLIDING SCALE (NOVOLOG) 1 VIAL SQ SCH ×2 (17:02→21:09)
[2023-02-17] MEDS: SODIUM CHLORIDE 1,000 ML IV SCH (18:11)
[2023-02-17] MEDS: NOREPINEPHRINE BITARTRATE/D5W 8 MG/250 ML BAG IVPB SCH (20:52)
[2023-02-17] MEDS: ATORVASTATIN CA 40 MG TABLET (FP) PO SCH (21:07)
[2023-02-17] MEDS: CHLORHEXIDINE GLUCONATE 4% CLEANSER FOR DECOLONIZATION TP SCH (21:09)
[2023-02-17] MEDS: MUPIROCIN 2% TOPICAL OINTMENT FOR DECOLONIZATION NS SCH (21:09)
[2023-02-17] MEDS ORDERED: ATORVASTATIN CA 40 MG TABLET (FP) PO SCH (22:00)
[2023-02-17] MEDS ORDERED: CHLORHEXIDINE GLUCONATE 4% CLEANSER FOR DECOLONIZATION TP SCH (22:00)
[2023-02-18] MEDS: MEROPENEM 1 GM in DEXTROSE 5%-WATER 100 ML IVPB SCH ×4 (01:09→17:16)
[2023-02-18] MEDS: INSULIN SLIDING SCALE (NOVOLOG) 1 VIAL SQ SCH ×4 (07:31→21:12)
[2023-02-18] MEDS: MUPIROCIN 2% TOPICAL OINTMENT FOR DECOLONIZATION NS SCH ×2 (09:23→21:12)
[2023-02-18 09:58] LABS: HEMATOCRIT 19.1 % (35.4-49); MCH 30.3 pg (25.7-33.7); MEAN CELL VOLUME 91.8 fl (80-96); MEAN PLT VOLUME 9.9 fl (7.5-11.1); PLATELET COUNT 38 10^3/uL (134-434); RBC 2.08 M/mm3 (4.00-5.60); RDW 19.2 % (11.9-15.9)
[2023-02-18 10:05] LABS: POTASSIUM 4.5 mmol/L (3.5-5.1)
[2023-02-18 10:07] LABS: BLOOD UREA NITROGEN 31.9 mg/dL (7-18); CALCIUM 7.4 mg/dL (8.5-10.1)
[2023-02-18 10:11] LABS: CREATININE 1.3 mg/dL (0.55-1.3)
[2023-02-18 10:12] LABS: BILIRUBIN,TOTAL 0.7 mg/dL (0.2-1); TOT PROT 5.5 g/dl (6.4-8.2)
[2023-02-18 10:13] LABS: ALBUMIN 2.1 g/dl (3.4-5.0)
[2023-02-18 10:23] LABS: WHITE BLOOD COUNT 2.1 K/mm3 (4.0-10.0)
[2023-02-18 10:40] LABS: HEMOGLOBIN 6.3 GM/dL (11.7-16.9)
[2023-02-18 11:01] LABS: ANISOCYTOSIS 1+; MACROCYTOSIS 0
[2023-02-18 12:58] LABS: MAGNESIUM 1.9 mg/dL (1.8-2.4)
[2023-02-18 13:02] LABS: PHOSPHOROUS 2.8 mg/dL (2.5-4.9)
[2023-02-18] MEDS ORDERED: dilTIAZem HCL 25 MG/5 ML - 5 ML VIAL ONE (14:59)
[2023-02-18] MEDS: SODIUM CHLORIDE 1,000 ML IV SCH (18:12)
[2023-02-18] MEDS: NOREPINEPHRINE BITARTRATE/D5W 8 MG/250 ML BAG IVPB SCH (18:12)
[2023-02-18 21:02] LABS: HEMATOCRIT 24.2 % (35.4-49); HEMOGLOBIN 8.2 GM/dL (11.7-16.9); MCH 29.9 pg (25.7-33.7); MCHC 33.7 g/dl (32.0-35.9); MEAN CELL VOLUME 88.7 fl (80-96); MEAN PLT VOLUME 12.8 fl (7.5-11.1); PLATELET COUNT 48 10^3/uL (134-434); RBC 2.73 M/mm3 (4.00-5.60); RDW 18.4 % (11.9-15.9)
[2023-02-18 21:05] LABS: WHITE BLOOD COUNT 1.7 K/mm3 (4.0-10.0)
[2023-02-18] MEDS: ATORVASTATIN CA 40 MG TABLET (FP) PO SCH (21:12)
[2023-02-18] MEDS: CHLORHEXIDINE GLUCONATE 4% CLEANSER FOR DECOLONIZATION TP SCH (21:12)
[2023-02-19] MEDS: MEROPENEM 1 GM in DEXTROSE 5%-WATER 100 ML IVPB SCH ×3 (01:14→17:13)
[2023-02-19] MEDS: INSULIN SLIDING SCALE (NOVOLOG) 1 VIAL SQ SCH ×4 (06:12→22:00)
[2023-02-19 07:12] LABS: HEMATOCRIT 25.3 % (35.4-49); HEMOGLOBIN 8.6 GM/dL (11.7-16.9); MCH 30.5 pg (25.7-33.7); MCHC 33.8 g/dl (32.0-35.9); MEAN CELL VOLUME 90.3 fl (80-96); MEAN PLT VOLUME 13.1 fl (7.5-11.1); PLATELET COUNT 47 10^3/uL (134-434); RDW 18.7 % (11.9-15.9)
[2023-02-19 07:23] LABS: WHITE BLOOD COUNT 1.7 K/mm3 (4.0-10.0)
[2023-02-19 07:26] LABS: POTASSIUM 4.1 mmol/L (3.5-5.1)
[2023-02-19 07:31] LABS: CALCIUM 7.6 mg/dL (8.5-10.1)
[2023-02-19 07:32] LABS: ALBUMIN 2.4 g/dl (3.4-5.0); BLOOD UREA NITROGEN 26.5 mg/dL (7-18); MAGNESIUM 1.8 mg/dL (1.8-2.4)
[2023-02-19 07:35] LABS: CREATININE 1.2 mg/dL (0.55-1.3)
[2023-02-19 07:36] LABS: BILIRUBIN,TOTAL 0.7 mg/dL (0.2-1)
[2023-02-19] MEDS ORDERED: NAPH,MB-DB/K PH,MBDB POWDER PACKET PO ONE (08:30)
[2023-02-19 09:01] LABS: ANISOCYTOSIS 0; MACROCYTOSIS 0
[2023-02-19] MEDS ORDERED: METOPROLOL TARTRATE 5 MG/5 ML VIAL IVPUSH ONE (09:46)
[2023-02-19] MEDS ORDERED: PANTOPRAZOLE SODIUM 40 MG VIAL IVPUSH SCH (10:00)
[2023-02-19] MEDS: MUPIROCIN 2% TOPICAL OINTMENT FOR DECOLONIZATION NS SCH (11:34)
[2023-02-19] MEDS ORDERED: INSULIN (NOVOLOG) ASPART 100 UNITS/ML 10ML VIAL ONE (11:41)
[2023-02-19] MEDS: SODIUM CHLORIDE 1,000 ML IV SCH (17:13)
[2023-02-19] MEDS ORDERED: POLYETHYLENE GLYCOL (HEALTHYLAX) 3350 17 GM PACKET PO PRN (21:11)
[2023-02-19] MEDS ORDERED: ACETAMINOPHEN 325 MG TABLET (FP) PO ONE (21:28)
[2023-02-19] MEDS: ATORVASTATIN CA 40 MG TABLET (FP) PO SCH (22:00)
[2023-02-19] MEDS ORDERED: CHLORHEXIDINE GLUCONATE 4% CLEANSER FOR DECOLONIZATION TP SCH (22:00)
[2023-02-19] MEDS ORDERED: MUPIROCIN 2% TOPICAL OINTMENT FOR DECOLONIZATION NS SCH (22:00)
[2023-02-19] MEDS: MELATONIN 5 MG TABLETS PO PRN (22:00)
[2023-02-20] MEDS: MEROPENEM 1 GM in DEXTROSE 5%-WATER 100 ML IVPB SCH ×3 (02:20→17:31)
[2023-02-20] MEDS: INSULIN SLIDING SCALE (NOVOLOG) 1 VIAL SQ SCH ×4 (07:32→21:38)
[2023-02-20 08:35] LABS: CALCIUM 7.5 mg/dL (8.5-10.1); MAGNESIUM 1.8 mg/dL (1.8-2.4)
[2023-02-20 08:37] LABS: HEMATOCRIT 26.6 % (35.4-49); HEMOGLOBIN 8.8 GM/dL (11.7-16.9); MCH 30.2 pg (25.7-33.7); MCHC 33.1 g/dl (32.0-35.9); MEAN CELL VOLUME 91.3 fl (80-96); MEAN PLT VOLUME 11.8 fl (7.5-11.1); RBC 2.91 M/mm3 (4.00-5.60); RDW 18.1 % (11.9-15.9)
[2023-02-20 08:38] LABS: PHOSPHOROUS 2.2 mg/dL (2.5-4.9)
[2023-02-20 08:40] LABS: BILIRUBIN,TOTAL 0.6 mg/dL (0.2-1); TOT PROT 5.4 g/dl (6.4-8.2)
[2023-02-20] MEDS: PANTOPRAZOLE SODIUM 40 MG VIAL IVPUSH SCH (09:08)
[2023-02-20] MEDS: NOREPINEPHRINE BITARTRATE/D5W 8 MG/250 ML BAG IVPB SCH (09:14)
[2023-02-20 09:16] LABS: PLATELET COUNT 33 10^3/uL (134-434); WHITE BLOOD COUNT 1.8 K/mm3 (4.0-10.0)
[2023-02-20 10:01] LABS: ANISOCYTOSIS 1+; MACROCYTOSIS 1+
[2023-02-20] MEDS: ATORVASTATIN CA 40 MG TABLET (FP) PO SCH (21:43)
[2023-02-21] MEDS: MEROPENEM 1 GM in DEXTROSE 5%-WATER 100 ML IVPB SCH ×3 (02:17→17:43)
[2023-02-21] MEDS: INSULIN SLIDING SCALE (NOVOLOG) 1 VIAL SQ SCH ×4 (06:01→21:13)
[2023-02-21] MEDS ORDERED: INSULIN SLIDING SCALE (NOVOLOG) 1 VIAL SQ ONE (08:06)
[2023-02-21] MEDS: PANTOPRAZOLE SODIUM 40 MG VIAL IVPUSH SCH (09:20)
[2023-02-21 12:59] LABS: HEMATOCRIT 26.6 % (35.4-49); HEMOGLOBIN 8.8 GM/dL (11.7-16.9); MCH 30.2 pg (25.7-33.7); MEAN CELL VOLUME 91.6 fl (80-96); MEAN PLT VOLUME 13.2 fl (7.5-11.1); PLATELET COUNT 44 10^3/uL (134-434); RDW 18.1 % (11.9-15.9)
[2023-02-21 13:14] LABS: WHITE BLOOD COUNT 1.5 K/mm3 (4.0-10.0)
[2023-02-21 13:20] LABS: POTASSIUM 4.2 mmol/L (3.5-5.1)
[2023-02-21 13:26] LABS: BLOOD UREA NITROGEN 18.9 mg/dL (7-18); CALCIUM 7.8 mg/dL (8.5-10.1)
[2023-02-21 13:27] LABS: ALBUMIN 2.4 g/dl (3.4-5.0)
[2023-02-21 13:29] LABS: CREATININE 0.9 mg/dL (0.55-1.3)
[2023-02-21 13:31] LABS: BILIRUBIN,TOTAL 0.6 mg/dL (0.2-1); TOT PROT 5.9 g/dl (6.4-8.2)
[2023-02-21] MEDS: ATORVASTATIN CA 40 MG TABLET (FP) PO SCH (21:10)
[2023-02-21] MEDS: MELATONIN 5 MG TABLETS PO PRN (21:14)
[2023-02-22] MEDS: MEROPENEM 1 GM in DEXTROSE 5%-WATER 100 ML IVPB SCH ×3 (03:04→17:55)
[2023-02-22] MEDS: INSULIN SLIDING SCALE (NOVOLOG) 1 VIAL SQ SCH ×4 (06:30→22:03)
[2023-02-22] MEDS: PANTOPRAZOLE SODIUM 40 MG VIAL IVPUSH SCH (09:56)
[2023-02-22] MEDS: ATORVASTATIN CA 40 MG TABLET (FP) PO SCH (21:59)
[2023-02-22] MEDS: MELATONIN 5 MG TABLETS PO PRN (21:59)
[2023-02-23] MEDS: MEROPENEM 1 GM in DEXTROSE 5%-WATER 100 ML IVPB SCH ×3 (01:09→17:30)
[2023-02-23] MEDS: INSULIN SLIDING SCALE (NOVOLOG) 1 VIAL SQ SCH ×4 (06:28→21:41)
[2023-02-23 08:48] LABS: HEMATOCRIT 24.7 % (35.4-49); HEMOGLOBIN 8.1 GM/dL (11.7-16.9); MCH 30.2 pg (25.7-33.7); MCHC 32.8 g/dl (32.0-35.9); MEAN PLT VOLUME 12.3 fl (7.5-11.1); RBC 2.69 M/mm3 (4.00-5.60); RDW 17.7 % (11.9-15.9)
[2023-02-23 08:54] LABS: BLOOD UREA NITROGEN 17.3 mg/dL (7-18); CALCIUM 8.1 mg/dL (8.5-10.1)
[2023-02-23 08:55] LABS: ALBUMIN 2.3 g/dl (3.4-5.0)
[2023-02-23 08:58] LABS: CREATININE 0.8 mg/dL (0.55-1.3)
[2023-02-23 08:59] LABS: BILIRUBIN,TOTAL 0.7 mg/dL (0.2-1); TOT PROT 5.8 g/dl (6.4-8.2)
[2023-02-23 09:28] LABS: PLATELET COUNT 36 10^3/uL (134-434); WHITE BLOOD COUNT 1.7 K/mm3 (4.0-10.0)
[2023-02-23] MEDS: PANTOPRAZOLE SODIUM 40 MG VIAL IVPUSH SCH (09:58)
[2023-02-23 10:31] LABS: ANISOCYTOSIS 0; MACROCYTOSIS 0
[2023-02-23] MEDS: ATORVASTATIN CA 40 MG TABLET (FP) PO SCH (21:38)
[2023-02-24] MEDS: MEROPENEM 1 GM in DEXTROSE 5%-WATER 100 ML IVPB SCH ×3 (03:00→17:03)
[2023-02-24] MEDS: INSULIN SLIDING SCALE (NOVOLOG) 1 VIAL SQ SCH ×4 (06:39→23:00)
[2023-02-24 09:30] LABS: HEMATOCRIT 26.3 % (35.4-49); HEMOGLOBIN 8.5 GM/dL (11.7-16.9); MCH 29.8 pg (25.7-33.7); MCHC 32.5 g/dl (32.0-35.9); MEAN CELL VOLUME 91.7 fl (80-96); RBC 2.87 M/mm3 (4.00-5.60); RDW 17.9 % (11.9-15.9)
[2023-02-24 09:33] LABS: WHITE BLOOD COUNT 1.9 K/mm3 (4.0-10.0)
[2023-02-24 09:36] LABS: PLATELET COUNT 52 10^3/uL (134-434)
[2023-02-24 09:41] LABS: POTASSIUM 4.4 mmol/L (3.5-5.1)
[2023-02-24 09:43] LABS: CALCIUM 7.8 mg/dL (8.5-10.1)
[2023-02-24 09:44] LABS: ALBUMIN 2.4 g/dl (3.4-5.0); BLOOD UREA NITROGEN 17.2 mg/dL (7-18)
[2023-02-24 09:47] LABS: CREATININE 0.8 mg/dL (0.55-1.3)
[2023-02-24] MEDS: PANTOPRAZOLE SODIUM 40 MG VIAL IVPUSH SCH (10:47)
[2023-02-24 11:42] LABS: ANISOCYTOSIS 0; MACROCYTOSIS 0
[2023-02-24] MEDS: ATORVASTATIN CA 40 MG TABLET (FP) PO SCH (22:34)
[2023-02-25] MEDS: MEROPENEM 1 GM in DEXTROSE 5%-WATER 100 ML IVPB SCH ×3 (01:51→17:43)
[2023-02-25] MEDS: INSULIN SLIDING SCALE (NOVOLOG) 1 VIAL SQ SCH ×4 (06:44→22:05)
[2023-02-25] MEDS: PANTOPRAZOLE SODIUM 40 MG VIAL IVPUSH SCH (11:06)
[2023-02-25] MEDS: ATORVASTATIN CA 40 MG TABLET (FP) PO SCH (22:00)
[2023-02-25] MEDS: MELATONIN 5 MG TABLETS PO PRN (22:00)
[2023-02-26] MEDS: MEROPENEM 1 GM in DEXTROSE 5%-WATER 100 ML IVPB SCH ×3 (01:38→17:21)
[2023-02-26] MEDS: INSULIN SLIDING SCALE (NOVOLOG) 1 VIAL SQ SCH ×4 (06:26→21:50)
[2023-02-26] MEDS: AMINO ACIDS/PROTEIN HYDROLYS 30 ML LIQUID.PKT PO SCH (08:40)
[2023-02-26] MEDS ORDERED: MIDAZOLAM HCL 2 MG/2 ML SINGLE DOSE VIAL ONE (11:04)
[2023-02-26] MEDS ORDERED: FENTANYL CITRATE/PF 50 MCG/ML VIAL ONE (11:04)
[2023-02-26] MEDS ORDERED: FENTANYL CITRATE/PF 50 MCG/ML VIAL IVPUSH ONE (11:05)
[2023-02-26] MEDS ORDERED: MIDAZOLAM HCL 2 MG/2 ML SINGLE DOSE VIAL IVPUSH ONE (11:06)
[2023-02-26] MEDS: PANTOPRAZOLE 40 MG TABLET PO SCH (14:13)
[2023-02-26] MEDS: ACETAMINOPHEN 325 MG TABLET (FP) PO PRN (18:10)
[2023-02-26] MEDS: ATORVASTATIN CA 40 MG TABLET (FP) PO SCH (21:50)
[2023-02-26] MEDS: MELATONIN 5 MG TABLETS PO PRN (21:51)
[2023-02-27] MEDS: ACETAMINOPHEN 325 MG TABLET (FP) PO PRN (02:24)
[2023-02-27] MEDS: INSULIN SLIDING SCALE (NOVOLOG) 1 VIAL SQ SCH ×4 (06:07→21:57)
[2023-02-27 08:00] LABS: HEMATOCRIT 21.5 % (35.4-49); HEMOGLOBIN 7.1 GM/dL (11.7-16.9); MCH 29.6 pg (25.7-33.7); MCHC 33.1 g/dl (32.0-35.9); MEAN CELL VOLUME 89.5 fl (80-96); MEAN PLT VOLUME 11.1 fl (7.5-11.1); RBC 2.41 M/mm3 (4.00-5.60); RDW 17.6 % (11.9-15.9)
[2023-02-27 08:02] LABS: PLATELET COUNT 29 10^3/uL (134-434)
[2023-02-27 08:19] LABS: ALBUMIN 2.3 g/dl (3.4-5.0); BLOOD UREA NITROGEN 19.2 mg/dL (7-18); CALCIUM 7.9 mg/dL (8.5-10.1)
[2023-02-27 08:21] LABS: CREATININE 0.9 mg/dL (0.55-1.3)
[2023-02-27 08:23] LABS: BILIRUBIN,TOTAL 0.9 mg/dL (0.2-1)
[2023-02-27] MEDS ORDERED: FUROSEMIDE 40 MG/4 ML INJECTABLE VIAL IVPUSH SCH (08:43)
[2023-02-27 08:44] LABS: ANISOCYTOSIS 3+; MACROCYTOSIS 0
[2023-02-27] MEDS: AMINO ACIDS/PROTEIN HYDROLYS 30 ML LIQUID.PKT PO SCH (09:55)
[2023-02-27] MEDS: PANTOPRAZOLE 40 MG TABLET PO SCH (09:55)
[2023-02-27] MEDS ORDERED: METOPROLOL TARTRATE 5 MG/5 ML VIAL IVPUSH PRN (11:08)
[2023-02-27] MEDS: ATORVASTATIN CA 40 MG TABLET (FP) PO SCH (21:49)
[2023-02-27] MEDS: MELATONIN 5 MG TABLETS PO PRN (21:50)
[2023-02-28] MEDS ORDERED: FUROSEMIDE 40 MG/4 ML INJECTABLE VIAL ONE (04:45)
[2023-02-28] MEDS: INSULIN SLIDING SCALE (NOVOLOG) 1 VIAL SQ SCH ×4 (06:21→21:49)
[2023-02-28] MEDS: AMINO ACIDS/PROTEIN HYDROLYS 30 ML LIQUID.PKT PO SCH (09:01)
[2023-02-28] MEDS: PANTOPRAZOLE 40 MG TABLET PO SCH (09:01)
[2023-02-28] MEDS: ACETAMINOPHEN 325 MG TABLET (FP) PO PRN (09:01)
[2023-02-28] MEDS: POLYETHYLENE GLYCOL (HEALTHYLAX) 3350 17 GM PACKET PO SCH (09:07)
[2023-02-28 09:15] LABS: HEMATOCRIT 27.7 % (35.4-49); HEMOGLOBIN 9.3 GM/dL (11.7-16.9); MCH 29.9 pg (25.7-33.7); MCHC 33.5 g/dl (32.0-35.9); MEAN CELL VOLUME 89.1 fl (80-96); MEAN PLT VOLUME 12.4 fl (7.5-11.1); RBC 3.11 M/mm3 (4.00-5.60); RDW 17.6 % (11.9-15.9); WHITE BLOOD COUNT 3.2 K/mm3 (4.0-10.0)
[2023-02-28 09:30] LABS: PLATELET COUNT 31 10^3/uL (134-434)
[2023-02-28 09:38] LABS: POTASSIUM 3.9 mmol/L (3.5-5.1)
[2023-02-28 09:45] LABS: ALBUMIN 2.7 g/dl (3.4-5.0); BLOOD UREA NITROGEN 23.1 mg/dL (7-18)
[2023-02-28 09:47] LABS: ANISOCYTOSIS 3+; BILIRUBIN,TOTAL 1.5 mg/dL (0.2-1); MACROCYTOSIS 0; TOT PROT 6.6 g/dl (6.4-8.2)
[2023-02-28] MEDS: DIGOXIN 0.125 MG TABLET PO SCH (11:54)
[2023-02-28] MEDS: ATORVASTATIN CA 40 MG TABLET (FP) PO SCH (21:39)
[2023-02-28] MEDS: MELATONIN 5 MG TABLETS PO PRN (21:40)
[2023-03-01] MEDS: INSULIN SLIDING SCALE (NOVOLOG) 1 VIAL SQ SCH ×4 (06:15→22:27)
[2023-03-01 08:37] LABS: HEMATOCRIT 26.8 % (35.4-49); MCH 29.8 pg (25.7-33.7); MCHC 33.7 g/dl (32.0-35.9); MEAN CELL VOLUME 88.7 fl (80-96); MEAN PLT VOLUME 12.5 fl (7.5-11.1); RBC 3.03 M/mm3 (4.00-5.60); RDW 17.2 % (11.9-15.9); WHITE BLOOD COUNT 3.1 K/mm3 (4.0-10.0)
[2023-03-01 08:44] LABS: PLATELET COUNT 32 10^3/uL (134-434)
[2023-03-01] MEDS: PANTOPRAZOLE 40 MG TABLET PO SCH (09:27)
[2023-03-01] MEDS: AMINO ACIDS/PROTEIN HYDROLYS 30 ML LIQUID.PKT PO SCH (09:27)
[2023-03-01] MEDS: POLYETHYLENE GLYCOL (HEALTHYLAX) 3350 17 GM PACKET PO SCH (09:28)
[2023-03-01 10:06] LABS: ANISOCYTOSIS 0; HELMET CELLS 0; HOWELL-JOLLY BODIES 0; MACROCYTOSIS 0; OVALOCYTE 0; ROULEAU 0; SICKELED CELLS 0; TARGET CELLS 0; TEAR DROP CELLS 0; TOXIC GRANULATION 0
[2023-03-01] MEDS: MELATONIN 5 MG TABLETS PO PRN (22:26)
[2023-03-01] MEDS: ATORVASTATIN CA 40 MG TABLET (FP) PO SCH (22:26)
[2023-03-02] MEDS: INSULIN SLIDING SCALE (NOVOLOG) 1 VIAL SQ SCH ×4 (06:06→21:24)
[2023-03-02 08:46] VITALS: RESP 18
[2023-03-02] MEDS: DIGOXIN 0.125 MG TABLET PO SCH (08:58)
[2023-03-02] MEDS: AMINO ACIDS/PROTEIN HYDROLYS 30 ML LIQUID.PKT PO SCH (08:58)
[2023-03-02] MEDS: PANTOPRAZOLE 40 MG TABLET PO SCH (10:54)
[2023-03-02] MEDS: POLYETHYLENE GLYCOL (HEALTHYLAX) 3350 17 GM PACKET PO SCH (10:55)
[2023-03-02] MEDS: ATORVASTATIN CA 40 MG TABLET (FP) PO SCH (21:19)
[2023-03-02] MEDS: MELATONIN 5 MG TABLETS PO PRN (21:26)
[2023-03-02] MEDS: ACETAMINOPHEN 325 MG TABLET (FP) PO PRN (21:27)
[2023-03-03] MEDS: INSULIN SLIDING SCALE (NOVOLOG) 1 VIAL SQ SCH ×2 (06:08→12:02)
[2023-03-03] MEDS ORDERED: INSULIN SLIDING SCALE (NOVOLOG) 1 VIAL SQ ONE (06:58)
[2023-03-03] MEDS: POLYETHYLENE GLYCOL (HEALTHYLAX) 3350 17 GM PACKET PO SCH (09:15)
[2023-03-03] MEDS: AMINO ACIDS/PROTEIN HYDROLYS 30 ML LIQUID.PKT PO SCH (09:15)
[2023-03-03] MEDS: PANTOPRAZOLE 40 MG TABLET PO SCH (09:15)
[2023-03-03 11:03] LABS: HEMATOCRIT 25.6 % (35.4-49); HEMOGLOBIN 8.6 GM/dL (11.7-16.9); MCH 29.4 pg (25.7-33.7); MCHC 33.6 g/dl (32.0-35.9); MEAN CELL VOLUME 87.4 fl (80-96); MEAN PLT VOLUME 9.8 fl (7.5-11.1); RBC 2.93 M/mm3 (4.00-5.60); RDW 17.1 % (11.9-15.9)
[2023-03-03 11:14] LABS: WHITE BLOOD COUNT 1.9 K/mm3 (4.0-10.0)
[2023-03-03 11:15] LABS: PLATELET COUNT 19 10^3/uL (134-434)
[2023-03-03 11:22] LABS: POTASSIUM 4.2 mmol/L (3.5-5.1)
[2023-03-03 11:30] LABS: CALCIUM 8.6 mg/dL (8.5-10.1)
[2023-03-03 11:31] LABS: ALBUMIN 2.5 g/dl (3.4-5.0); BLOOD UREA NITROGEN 25.8 mg/dL (7-18)
[2023-03-03 11:35] LABS: BILIRUBIN,TOTAL 0.9 mg/dL (0.2-1); TOT PROT 6.7 g/dl (6.4-8.2)
[2023-03-03 12:14] LABS: ANISOCYTOSIS 0; HELMET CELLS 0; HOWELL-JOLLY BODIES 0; MACROCYTOSIS 0; OVALOCYTE 0; ROULEAU 0; SICKELED CELLS 0; TARGET CELLS 0; TEAR DROP CELLS 0; TOXIC GRANULATION 0
[2023-03-03 15:22] VITALS: BP 95/47; PULSE 80; TEMP 97.7
== END 2023-03-03 15:45 | DRG 871 ==
LOC: JER 15:38 → JERBED 21:22 → JICU 02-17 12:34 → J4S 02-19 20:21
PROVIDERS: ADMIT Internal Medicine; ATTEND Family Medicine
PROC: 30233N1 Transfusion of Nonautologous Red Blood Cells into Peripheral Vein, Percutaneous Approach (ICD-10-PCS; 2023-02-16)
PROC: 0T25X0Z Change Drainage Device in Kidney, External Approach (ICD-10-PCS; principal; 2023-02-26)
DX: A41.9 Sepsis, unspecified organism (principal); J96.21 Acute and chronic respiratory failure with hypoxia; R65.21 Severe sepsis with septic shock; D61.818 Other pancytopenia; K51.90 Ulcerative colitis, unspecified, without complications; N39.0 Urinary tract infection, site not specified; N17.9 Acute kidney failure, unspecified; N13.30 Unspecified hydronephrosis; I27.20 Pulmonary hypertension, unspecified; N18.9 Chronic kidney disease, unspecified; J44.9 Chronic obstructive pulmonary disease, unspecified; I48.0 Paroxysmal atrial fibrillation; E78.5 Hyperlipidemia, unspecified; D64.9 Anemia, unspecified; E11.22 Type 2 diabetes mellitus with diabetic chronic kidney disease; D69.6 Thrombocytopenia, unspecified; I12.9 Hypertensive chronic kidney disease with stage 1 through stage 4 chronic kidney disease, or unspecified chronic kidney disease; I50.9 Heart failure, unspecified
CPT/HCPCS: 0241U-QW; 36415; 36430; 36600; 50693; 71045-TC-FY; 76775-TC; 76856-TC; 80048; 80053; 81003; 82550; 82728; 82803; 82962; 83540; 83550; 83605; 83735; 83880; 84100; 84484; 85025; 85027; 85610; 85730; 86850; 86900; 86901; 86922; 87040; 87086; 87186; 87635; 93005; 93010; 93306-TC; 94660; 97116-GP; 97162-GP; 99285-25; P9037; P9058

== ENCOUNTER 2023-03-06 18:41 | Inpatient (IN) | payer OTHER, MEDICARE ==
[2023-03-06 20:54] LABS: BASO % 1.8 % (0-2.0); EOS % 1.4 % (0-4.5); HEMATOCRIT 19.4 % (35.4-49); LYMPH % 34.2 % (8-40); MCH 29.3 pg (25.7-33.7); MCHC 33.3 g/dl (32.0-35.9); MEAN CELL VOLUME 87.9 fl (80-96); MEAN PLT VOLUME 9.9 fl (7.5-11.1); MONO % 37.7 % (3.8-10.2); NEUT % 24.9 % (42.8-82.8); RBC 2.21 M/mm3 (4.00-5.60); RDW 17.5 % (11.9-15.9)
[2023-03-06 21:00] LABS: WHITE BLOOD COUNT 1.5 K/mm3 (4.0-10.0)
[2023-03-06 21:01] LABS: HEMOGLOBIN 6.5 GM/dL (11.7-16.9); PLATELET COUNT 14 10^3/uL (134-434)
[2023-03-06 21:07] LABS: INR 1.78 (0.83-1.09); PROTHROMBIN TIME (PATIENT) 20.5 SEC (9.7-13.0)
[2023-03-06 21:10] LABS: ACTIVATED PTT 27.2 SECONDS (25.2-36.5)
[2023-03-06 21:20] LABS: POTASSIUM 3.5 mmol/L (3.5-5.1)
[2023-03-06 21:23] LABS: CALCIUM 7.7 mg/dL (8.5-10.1)
[2023-03-06 21:24] LABS: ALBUMIN 2.5 g/dl (3.4-5.0)
[2023-03-06 21:27] LABS: CREATININE 1.5 mg/dL (0.55-1.3)
[2023-03-06 21:28] LABS: BILIRUBIN,TOTAL 0.7 mg/dL (0.2-1); TOT PROT 6.8 g/dl (6.4-8.2)
[2023-03-06 22:16] LABS: ANISOCYTOSIS 2+; MACROCYTOSIS 1+; TARGET CELLS 1+
[2023-03-06] MEDS ORDERED: ACETAMINOPHEN 1000 MG/100 ML BAG IVPB ONE (23:04)
[2023-03-06] MEDS ORDERED: ACETAMINOPHEN INJECTION 100 ML IVPB ONE (23:05)
[2023-03-07 00:36] LABS: EPI CELLS >36 /uL (0-25.1); HYALINE CASTS 10 /uL (0-3.1); PH,URINE 5.5 (5.0-8.0); URINE APPEARANCE CLOUDY; URINE BILIRUBIN NEGATIVE (NEGATIVE); URINE COLOR YELLOW; URINE GLUCOSE (UA) NEGATIVE (NEGATIVE); URINE KETONE TRACE (NEGATIVE); URINE LEUK ESTERASE 2+ (NEGATIVE); URINE NITRITE POSITIVE (NEGATIVE); URINE PROTEIN 3+ (NEGATIVE); URINE RBC 3711 /uL (0-23.9); URINE WBC 192 /uL (0-25.8)
[2023-03-07] MEDS ORDERED: MELATONIN 5 MG TABLETS PO PRN (05:00)
[2023-03-07] MEDS ORDERED: MEROPENEM 1 GM in DEXTROSE 5%-WATER 100 ML IVPB SCH (05:00)
[2023-03-07] MEDS ORDERED: ALBUTEROL SO4 2.5/IPRATROPIUM 0.5 INH SOL 3 ML VIAL.NEB. NEB PRN (05:06)
[2023-03-07] MEDS ORDERED: ACETAMINOPHEN 1000 MG/100 ML BAG IVPB PRN (05:30)
[2023-03-07] MEDS ORDERED: MEROPENEM 1 GM VIAL (RESTRICTED TO ID) IVPB ONE ×2 (06:06→15:26)
[2023-03-07] MEDS: INSULIN SLIDING SCALE (NOVOLOG) 1 VIAL SQ SCH ×4 (06:28→22:59)
[2023-03-07 08:22] LABS: HEMATOCRIT 24.9 % (35.4-49); HEMOGLOBIN 8.4 GM/dL (11.7-16.9); MCH 30.1 pg (25.7-33.7); MCHC 33.9 g/dl (32.0-35.9); MEAN PLT VOLUME 8.9 fl (7.5-11.1); RDW 16.4 % (11.9-15.9)
[2023-03-07] MEDS: AMINO ACIDS/PROTEIN HYDROLYS 30 ML LIQUID.PKT PO SCH (08:25)
[2023-03-07] MEDS: DIGOXIN 0.125 MG TABLET PO SCH ×2 (08:25→09:01)
[2023-03-07 08:37] LABS: PLATELET COUNT 34 10^3/uL (134-434); WHITE BLOOD COUNT 1.6 K/mm3 (4.0-10.0)
[2023-03-07 08:39] LABS: POTASSIUM 4.3 mmol/L (3.5-5.1)
[2023-03-07 08:43] LABS: BLOOD UREA NITROGEN 35.8 mg/dL (7-18); MAGNESIUM 1.8 mg/dL (1.8-2.4)
[2023-03-07 08:46] LABS: CREATININE 1.2 mg/dL (0.55-1.3); PHOSPHOROUS 3.5 mg/dL (2.5-4.9)
[2023-03-07 09:03] LABS: YEAST NEGATIVE (NEGATIVE)
[2023-03-07 09:13] LABS: ANISOCYTOSIS 0; HELMET CELLS 0; HOWELL-JOLLY BODIES 0; MACROCYTOSIS 0; OVALOCYTE 0; ROULEAU 0; SICKELED CELLS 0; TARGET CELLS 0; TEAR DROP CELLS 0; TOXIC GRANULATION 0
[2023-03-07] MEDS ORDERED: BACLOFEN 10 MG TABLET (FP) ONE (14:35)
[2023-03-07] MEDS ORDERED: GABAPENTIN 400 MG CAPSULE ONE (14:35)
[2023-03-07] MEDS: MEROPENEM 1 GM in DEXTROSE 5%-WATER 100 ML IVPB SCH (15:30)
[2023-03-07] MEDS ORDERED: ATORVASTATIN CA 40 MG TABLET (FP) PO SCH (22:00)
[2023-03-08] MEDS ORDERED: MEROPENEM 1 GM VIAL (RESTRICTED TO ID) IVPB ONE ×2 (02:26→09:33)
[2023-03-08] MEDS: MEROPENEM 1 GM in DEXTROSE 5%-WATER 100 ML IVPB SCH ×5 (02:33→17:20)
[2023-03-08] MEDS ORDERED: ACETAMINOPHEN 325 MG TABLET (FP) PO PRN ×2 (05:30→18:10)
[2023-03-08 06:47] LABS: BASO % 2.1 % (0-2.0); EOS % 2.2 % (0-4.5); HEMATOCRIT 25.1 % (35.4-49); HEMOGLOBIN 8.6 GM/dL (11.7-16.9); LYMPH % 38.3 % (8-40); MCH 30.2 pg (25.7-33.7); MCHC 34.4 g/dl (32.0-35.9); MEAN CELL VOLUME 87.9 fl (80-96); MEAN PLT VOLUME 9.5 fl (7.5-11.1); MONO % 40.7 % (3.8-10.2); NEUT % 16.7 % (42.8-82.8); RBC 2.86 M/mm3 (4.00-5.60); RDW 16.4 % (11.9-15.9)
[2023-03-08 06:51] LABS: WHITE BLOOD COUNT 1.2 K/mm3 (4.0-10.0)
[2023-03-08 06:52] LABS: PLATELET COUNT 17 10^3/uL (134-434)
[2023-03-08] MEDS: INSULIN SLIDING SCALE (NOVOLOG) 1 VIAL SQ SCH ×4 (07:23→21:13)
[2023-03-08 07:33] LABS: POTASSIUM 4.1 mmol/L (3.5-5.1)
[2023-03-08 07:35] LABS: ALBUMIN 2.4 g/dl (3.4-5.0); BLOOD UREA NITROGEN 27.2 mg/dL (7-18); CALCIUM 7.7 mg/dL (8.5-10.1)
[2023-03-08 07:38] LABS: CREATININE 0.9 mg/dL (0.55-1.3)
[2023-03-08 07:40] LABS: BILIRUBIN,TOTAL 0.9 mg/dL (0.2-1); TOT PROT 6.5 g/dl (6.4-8.2)
[2023-03-08 09:09] LABS: ANISOCYTOSIS 1+; MACROCYTOSIS 0; OVALOCYTE 2+
[2023-03-08] MEDS: AMINO ACIDS/PROTEIN HYDROLYS 30 ML LIQUID.PKT PO SCH (09:47)
[2023-03-08] MEDS ORDERED: VANCOMYCIN/WATER FOR INJ (PEG) 1,000 MG/200 ML BAG IVPB SCH (13:00)
[2023-03-08] MEDS ORDERED: DIGOXIN 0.125 MG TABLET PO ONE ×2 (15:34→17:00)
[2023-03-08] MEDS ORDERED: ALBUTEROL SO4 2.5/IPRATROPIUM 0.5 INH SOL 3 ML VIAL.NEB. NEB PRN (18:10)
[2023-03-08] MEDS ORDERED: MELATONIN 5 MG TABLETS PO PRN (18:10)
[2023-03-08] MEDS: ATORVASTATIN CA 40 MG TABLET (FP) PO SCH (21:15)
[2023-03-09] MEDS: VANCOMYCIN/WATER FOR INJ (PEG) 1,000 MG/200 ML BAG IVPB SCH ×2 (00:37→12:09)
[2023-03-09] MEDS: MEROPENEM 1 GM in DEXTROSE 5%-WATER 100 ML IVPB SCH ×3 (01:57→17:15)
[2023-03-09] MEDS: INSULIN SLIDING SCALE (NOVOLOG) 1 VIAL SQ SCH ×4 (06:16→22:17)
[2023-03-09] MEDS: AMINO ACIDS/PROTEIN HYDROLYS 30 ML LIQUID.PKT PO SCH (08:41)
[2023-03-09] MEDS: DIGOXIN 0.125 MG TABLET PO SCH (09:48)
[2023-03-09] MEDS: ATORVASTATIN CA 40 MG TABLET (FP) PO SCH (22:14)
[2023-03-10] MEDS: MEROPENEM 1 GM in DEXTROSE 5%-WATER 100 ML IVPB SCH ×3 (02:51→18:05)
[2023-03-10] MEDS: INSULIN SLIDING SCALE (NOVOLOG) 1 VIAL SQ SCH ×4 (06:36→21:48)
[2023-03-10] MEDS: AMINO ACIDS/PROTEIN HYDROLYS 30 ML LIQUID.PKT PO SCH (08:42)
[2023-03-10 08:45] LABS: HEMATOCRIT 22.8 % (35.4-49); HEMOGLOBIN 7.7 GM/dL (11.7-16.9); MCH 29.2 pg (25.7-33.7); MCHC 33.5 g/dl (32.0-35.9); MEAN CELL VOLUME 87.2 fl (80-96); MEAN PLT VOLUME 10.2 fl (7.5-11.1); RBC 2.62 M/mm3 (4.00-5.60); RDW 16.7 % (11.9-15.9)
[2023-03-10 08:58] LABS: WHITE BLOOD COUNT 1.3 K/mm3 (4.0-10.0)
[2023-03-10 08:59] LABS: PLATELET COUNT 19 10^3/uL (134-434)
[2023-03-10 09:06] LABS: POTASSIUM 4.3 mmol/L (3.5-5.1)
[2023-03-10 09:08] LABS: CALCIUM 8.3 mg/dL (8.5-10.1)
[2023-03-10 09:09] LABS: ALBUMIN 2.5 g/dl (3.4-5.0); BLOOD UREA NITROGEN 31.8 mg/dL (7-18)
[2023-03-10 09:12] LABS: CREATININE 0.9 mg/dL (0.55-1.3)
[2023-03-10 09:13] LABS: BILIRUBIN,TOTAL 0.8 mg/dL (0.2-1); TOT PROT 6.5 g/dl (6.4-8.2)
[2023-03-10 09:24] LABS: ANISOCYTOSIS 2+; MACROCYTOSIS 2+
[2023-03-10] MEDS ORDERED: FUROSEMIDE 40 MG/4 ML INJECTABLE VIAL IVPUSH SCH (11:19)
[2023-03-10] MEDS: ATORVASTATIN CA 40 MG TABLET (FP) PO SCH (21:28)
[2023-03-11] MEDS: MEROPENEM 1 GM in DEXTROSE 5%-WATER 100 ML IVPB SCH ×3 (04:00→17:35)
[2023-03-11] MEDS: INSULIN SLIDING SCALE (NOVOLOG) 1 VIAL SQ SCH ×4 (06:44→21:26)
[2023-03-11] MEDS: AMINO ACIDS/PROTEIN HYDROLYS 30 ML LIQUID.PKT PO SCH (07:54)
[2023-03-11 09:08] LABS: HEMATOCRIT 23.3 % (35.4-49); MCH 29.9 pg (25.7-33.7); MCHC 34.5 g/dl (32.0-35.9); MEAN CELL VOLUME 86.6 fl (80-96); MEAN PLT VOLUME 9.8 fl (7.5-11.1); RBC 2.69 M/mm3 (4.00-5.60); RDW 16.2 % (11.9-15.9)
[2023-03-11 09:14] LABS: INR 1.5 (0.83-1.09); PROTHROMBIN TIME (PATIENT) 17.3 SEC (9.7-13.0)
[2023-03-11 09:19] LABS: WHITE BLOOD COUNT 1.1 K/mm3 (4.0-10.0)
[2023-03-11 09:20] LABS: PLATELET COUNT 17 10^3/uL (134-434)
[2023-03-11] MEDS: DIGOXIN 0.125 MG TABLET PO SCH (09:28)
[2023-03-11 09:29] LABS: POTASSIUM 4.4 mmol/L (3.5-5.1)
[2023-03-11 09:32] LABS: ALBUMIN 2.6 g/dl (3.4-5.0); BLOOD UREA NITROGEN 31.6 mg/dL (7-18); CALCIUM 8.4 mg/dL (8.5-10.1)
[2023-03-11 09:36] LABS: CREATININE 0.9 mg/dL (0.55-1.3)
[2023-03-11 09:37] LABS: BILIRUBIN,TOTAL 1.1 mg/dL (0.2-1); TOT PROT 6.7 g/dl (6.4-8.2)
[2023-03-11 09:38] LABS: ANISOCYTOSIS 0; MACROCYTOSIS 0
[2023-03-11 14:29] LABS: EPI CELLS >36 /uL (0-25.1); HYALINE CASTS 5 /uL (0-3.1); URINE APPEARANCE CLOUDY; URINE BACTERIA 67 /uL (0-1359); URINE BILIRUBIN NEGATIVE (NEGATIVE); URINE COLOR ORANGE; URINE GLUCOSE (UA) NEGATIVE (NEGATIVE); URINE KETONE TRACE (NEGATIVE); URINE LEUK ESTERASE 2+ (NEGATIVE); URINE NITRITE NEGATIVE (NEGATIVE); URINE PROTEIN 3+ (NEGATIVE); URINE RBC 9411 /uL (0-23.9); URINE WBC 184 /uL (0-25.8)
[2023-03-11 15:01] LABS: YEAST MODERATE (NEGATIVE)
[2023-03-11] MEDS: ATORVASTATIN CA 40 MG TABLET (FP) PO SCH (21:22)
[2023-03-12] MEDS: MEROPENEM 1 GM in DEXTROSE 5%-WATER 100 ML IVPB SCH ×3 (02:13→17:01)
[2023-03-12] MEDS: INSULIN SLIDING SCALE (NOVOLOG) 1 VIAL SQ SCH ×4 (06:26→21:53)
[2023-03-12 07:22] LABS: HEMATOCRIT 24.7 % (35.4-49); HEMOGLOBIN 8.3 GM/dL (11.7-16.9); MCH 29.8 pg (25.7-33.7); MCHC 33.8 g/dl (32.0-35.9); MEAN CELL VOLUME 88.2 fl (80-96); MEAN PLT VOLUME 10.4 fl (7.5-11.1); RDW 16.4 % (11.9-15.9)
[2023-03-12 07:39] LABS: POTASSIUM 4.3 mmol/L (3.5-5.1)
[2023-03-12 07:46] LABS: CALCIUM 8.2 mg/dL (8.5-10.1); MAGNESIUM 1.8 mg/dL (1.8-2.4)
[2023-03-12 07:47] LABS: BLOOD UREA NITROGEN 32.2 mg/dL (7-18)
[2023-03-12 07:50] LABS: CREATININE 0.8 mg/dL (0.55-1.3); WHITE BLOOD COUNT 1.1 K/mm3 (4.0-10.0)
[2023-03-12 07:51] LABS: PLATELET COUNT 15 10^3/uL (134-434)
[2023-03-12] MEDS: AMINO ACIDS/PROTEIN HYDROLYS 30 ML LIQUID.PKT PO SCH (08:13)
[2023-03-12] MEDS ORDERED: MIDAZOLAM HCL 2 MG/2 ML SINGLE DOSE VIAL ONE (11:27)
[2023-03-12] MEDS ORDERED: FENTANYL CITRATE/PF 50 MCG/ML VIAL ONE (11:27)
[2023-03-12] MEDS ORDERED: FENTANYL CITRATE/PF 50 MCG/ML VIAL IVPUSH ONE (12:03)
[2023-03-12] MEDS ORDERED: MIDAZOLAM HCL 2 MG/2 ML SINGLE DOSE VIAL IVPUSH ONE (12:03)
[2023-03-12] MEDS: ATORVASTATIN CA 40 MG TABLET (FP) PO SCH (21:48)
[2023-03-13] MEDS: MEROPENEM 1 GM in DEXTROSE 5%-WATER 100 ML IVPB SCH ×3 (02:02→17:49)
[2023-03-13] MEDS: INSULIN SLIDING SCALE (NOVOLOG) 1 VIAL SQ SCH ×4 (06:38→23:03)
[2023-03-13 09:01] LABS: HEMOGLOBIN 9.4 GM/dL (11.7-16.9); MCH 29.8 pg (25.7-33.7); MCHC 34.6 g/dl (32.0-35.9); MEAN CELL VOLUME 85.9 fl (80-96); MEAN PLT VOLUME 10.2 fl (7.5-11.1); RBC 3.14 M/mm3 (4.00-5.60); RDW 16.3 % (11.9-15.9)
[2023-03-13 09:09] LABS: PLATELET COUNT 18 10^3/uL (134-434); WHITE BLOOD COUNT 1.3 K/mm3 (4.0-10.0)
[2023-03-13 09:56] LABS: POTASSIUM 4.5 mmol/L (3.5-5.1)
[2023-03-13 10:05] LABS: PHOSPHOROUS 3.1 mg/dL (2.5-4.9)
[2023-03-13 10:06] LABS: BLOOD UREA NITROGEN 31.2 mg/dL (7-18)
[2023-03-13 10:07] LABS: BILIRUBIN,TOTAL 1.4 mg/dL (0.2-1); CALCIUM 8.8 mg/dL (8.5-10.1); TOT PROT 7.9 g/dl (6.4-8.2)
[2023-03-13 10:08] LABS: CREATININE 0.9 mg/dL (0.55-1.3); MAGNESIUM 2.1 mg/dL (1.8-2.4)
[2023-03-13 10:18] LABS: ALBUMIN 3.1 g/dl (3.4-5.0)
[2023-03-13] MEDS: DIGOXIN 0.125 MG TABLET PO SCH (10:33)
[2023-03-13] MEDS: AMINO ACIDS/PROTEIN HYDROLYS 30 ML LIQUID.PKT PO SCH (10:33)
[2023-03-13] MEDS: ATORVASTATIN CA 40 MG TABLET (FP) PO SCH (22:56)
[2023-03-14] MEDS: MEROPENEM 1 GM in DEXTROSE 5%-WATER 100 ML IVPB SCH ×3 (02:20→18:20)
[2023-03-14] MEDS: INSULIN SLIDING SCALE (NOVOLOG) 1 VIAL SQ SCH ×4 (06:26→21:27)
[2023-03-14 08:00] LABS: HEMATOCRIT 21.6 % (35.4-49); HEMOGLOBIN 7.4 GM/dL (11.7-16.9); MCH 29.4 pg (25.7-33.7); MCHC 34.3 g/dl (32.0-35.9); MEAN CELL VOLUME 85.7 fl (80-96); MEAN PLT VOLUME 10.4 fl (7.5-11.1); RBC 2.52 M/mm3 (4.00-5.60); RDW 16.2 % (11.9-15.9)
[2023-03-14 08:36] LABS: POTASSIUM 4.4 mmol/L (3.5-5.1)
[2023-03-14 08:41] LABS: BLOOD UREA NITROGEN 34.1 mg/dL (7-18); CALCIUM 8.5 mg/dL (8.5-10.1)
[2023-03-14 08:44] LABS: CREATININE 0.9 mg/dL (0.55-1.3); PLATELET COUNT 16 10^3/uL (134-434)
[2023-03-14] MEDS: AMINO ACIDS/PROTEIN HYDROLYS 30 ML LIQUID.PKT PO SCH (08:51)
[2023-03-14] MEDS: ATORVASTATIN CA 40 MG TABLET (FP) PO SCH (21:18)
[2023-03-15] MEDS: MEROPENEM 1 GM in DEXTROSE 5%-WATER 100 ML IVPB SCH ×3 (01:14→17:41)
[2023-03-15] MEDS ORDERED: INSULIN (NOVOLOG) ASPART 100 UNITS/ML 10ML VIAL ONE ×3 (06:14→17:27)
[2023-03-15] MEDS: INSULIN SLIDING SCALE (NOVOLOG) 1 VIAL SQ SCH ×4 (06:20→22:32)
[2023-03-15] MEDS: AMINO ACIDS/PROTEIN HYDROLYS 30 ML LIQUID.PKT PO SCH (09:10)
[2023-03-15 09:27] LABS: HEMOGLOBIN 8.2 GM/dL (11.7-16.9); MCH 29.2 pg (25.7-33.7); MCHC 34.1 g/dl (32.0-35.9); MEAN CELL VOLUME 85.7 fl (80-96); MEAN PLT VOLUME 11.6 fl (7.5-11.1); RDW 16.3 % (11.9-15.9)
[2023-03-15 09:39] LABS: PLATELET COUNT 25 10^3/uL (134-434); WHITE BLOOD COUNT 1.2 K/mm3 (4.0-10.0)
[2023-03-15 09:48] LABS: POTASSIUM 4.7 mmol/L (3.5-5.1)
[2023-03-15 09:54] LABS: CALCIUM 8.5 mg/dL (8.5-10.1)
[2023-03-15 09:55] LABS: ALBUMIN 2.9 g/dl (3.4-5.0); BLOOD UREA NITROGEN 35.5 mg/dL (7-18)
[2023-03-15] MEDS: DIGOXIN 0.125 MG TABLET PO SCH (09:55)
[2023-03-15 09:57] LABS: BILIRUBIN,DIRECT 0.3 mg/dL (0.0-0.2); URIC ACID 4.6 mg/dL (2.6-7.2)
[2023-03-15 09:59] LABS: TOT PROT 7.2 g/dl (6.4-8.2)
[2023-03-15 15:59] VITALS: RESP 20
[2023-03-15 16:34] VITALS: BMI 27.9
[2023-03-15] MEDS ORDERED: ATORVASTATIN CA 20 MG TABLET (FP) ONE (22:17)
[2023-03-15] MEDS: ATORVASTATIN CA 40 MG TABLET (FP) PO SCH (22:31)
[2023-03-16] MEDS: MEROPENEM 1 GM in DEXTROSE 5%-WATER 100 ML IVPB SCH (02:43)
[2023-03-16 05:39] VITALS: BP 103/50; PULSE 86; TEMP 98.2
== END 2023-03-16 06:45 | disposition short-term general hospital (02) | DRG 834 ==
LOC: JER 18:41 → JERBED 22:14 → J6W 03-08 14:01 → J4W 03-08 16:45
PROVIDERS: ADMIT Internal Medicine; ATTEND Family Medicine
PROC: 30233N1 Transfusion of Nonautologous Red Blood Cells into Peripheral Vein, Percutaneous Approach (ICD-10-PCS; 2023-03-06)
PROC: 30233R1 Transfusion of Nonautologous Platelets into Peripheral Vein, Percutaneous Approach (ICD-10-PCS; 2023-03-06)
PROC: 07DR3ZX Extraction of Iliac Bone Marrow, Percutaneous Approach, Diagnostic (ICD-10-PCS; principal; 2023-03-12)
DX: C92.00 Acute myeloblastic leukemia, not having achieved remission (principal); G93.41 Metabolic encephalopathy; D61.818 Other pancytopenia; N17.9 Acute kidney failure, unspecified; N39.0 Urinary tract infection, site not specified; Z79.01 Long term (current) use of anticoagulants; J44.9 Chronic obstructive pulmonary disease, unspecified; I10 Essential (primary) hypertension; E78.5 Hyperlipidemia, unspecified; E11.9 Type 2 diabetes mellitus without complications; I11.0 Hypertensive heart disease with heart failure; I50.9 Heart failure, unspecified; Z86.73 Personal history of transient ischemic attack (TIA), and cerebral infarction without residual deficits; I48.0 Paroxysmal atrial fibrillation; Z79.4 Long term (current) use of insulin; D70.9 Neutropenia, unspecified; R50.81 Fever presenting with conditions classified elsewhere
CPT/HCPCS: 0241U-QW; 20225; 36415; 36430; 36511; 71045-TC-FY; 80048; 80053; 80076; 80162; 81003; 82272; 82784; 82962; 83010; 83540; 83550; 83615; 83735; 84100; 84484; 84550; 85025; 85027; 85379; 85384; 85610; 85730; 86850; 86900; 86901; 86922; 87040; 87077; 87086; 87186; 88300-TC; 93005; 93010; 97116-GP; 97161-GP; 99285-25; P9034; P9037; P9038; P9058